=== PATIENT | female | born 1990 | race Caucasian/White ===

== ENCOUNTER 2017-02-21 22:39 | Inpatient (IN) | payer OTHER ==
[2017-02-22] MEDS: DIPHENHYDRAMINE 50 MG INJ IV ×3 (01:15→22:07)
[2017-02-22] MEDS: SOD CHLORIDE 0.9% 2,000 ML IV (01:15)
[2017-02-22] MEDS: morphine 4 MG/ML VIAL IV ×6 (01:16→22:07)
[2017-02-22 01:46] LABS: ABNORMAL IP MESSAGE 1; HEMATOCRIT 25.5 % (37.0-47.0); HEMOGLOBIN 8.6 g/dl (12.0-16.0); MEAN CORPUSCULAR HEMOGLOBIN 28.4 pg (29.0-33.0); MEAN CORPUSCULAR HGB CONC 33.7 g/dl (32.0-37.0); MEAN CORPUSCULAR VOLUME 84.2 fl (82.0-101.0); MEAN PLATELET VOLUME 10.7 fl (7.4-10.4); NUCLEATED RED BLOOD CELLS% 0.5 /100WBC (0.0-0.0); PLATELET COUNT 407 10^3/UL (140-415); RED BLOOD COUNT 3.03 10^6/ul (4.20-5.40); RED CELL DISTRIBUTION WIDTH 22.7 % (11.5-14.5); RETICULOCYTE COUNT # 0.311 X10^6 (0.020-0.110); RETICULOCYTE COUNT % 10.3 % (0.5-1.5); RETICULOCYTE RBC 3.03
[2017-02-22 01:46] LABS: WHITE BLOOD COUNT 16.9 10^3/ul (4.8-10.8)
[2017-02-22 01:50] LABS: ADD MAN DIFF? YES; POSITIVE DIFF @See below
[2017-02-22 02:04] LABS: URINE BLOOD (Dip) POC Negative (NEGATIVE); URINE GLUCOSE (Dip) POC Negative (NEGATIVE); URINE KETONES (Dip) POC Negative (NEGATIVE); URINE LEUKOCYTE EST (Dip) POC Negative (NEGATIVE); URINE NITRITE (Dip) POC Negative (NEGATIVE); URINE TOTAL PROTEIN POC Negative (NEGATIVE)
[2017-02-22 02:05] LABS: ANION GAP 20 (8-16); BLOOD UREA NITROGEN 16 mg/dl (7-20); CALCIUM 9.3 mg/dl (8.4-10.2); CARBON DIOXIDE 25 mmol/L (21-31); CHLORIDE 104 mmol/L (97-110); CREATININE 0.65 mg/dl (0.44-1.00); GLUCOSE 102 mg/dl (70-220); POTASSIUM 4.5 mmol/L (3.5-5.1); SODIUM 144 mmol/L (135-144)
[2017-02-22] MEDS: morphine 10 MG INJ IV ×2 (02:05→03:34)
[2017-02-22 02:31] LABS: ANISOCYTOSIS 1+ (0-0); EOSINOPHILS % (M) 2 % (0-7); GIANT THROMBO% (M) 2 % (0-0); HYPOCHROMASIA 1+ (0-0); LYMPHOCYTES #M 6.7 10^3/ul (0.8-2.9); LYMPHOCYTES % (M) 40 % (15-51); MONOCYTE #M 1.3 10^3/ul (0.3-0.9); MONOCYTES % (M) 8 % (0-11); PLATELET ESTIMATE NORMAL; PLATELET MORPHOLOGY COMMENT @See below; POIKILOCYTOSIS 1+ (0-0); POLYCHROMASIA 3+ (0-0); SEGMENTED NEUTROPHILS (M) % 50 % (39-77); SICKLE CELL 1+ (0-0); SMUDGE%M 8 % (0-0); TARGET CELLS 1+ (0-0)
[2017-02-22] MEDS: ONDANSETRON 4 MG INJ IV ×3 (03:56→05:44)
[2017-02-22] MEDS: ACETAMINOPHEN 325 MG TAB PO ×2 (03:56→04:03)
[2017-02-22] MEDS ORDERED: HYDROCODONE/APAP (5/325) TAB PO (05:30)
[2017-02-22] MEDS: SOD CHLORIDE 0.45% 1,000 ML IV ×3 (05:45→23:20)
[2017-02-22 06:45] LABS: ADD MAN DIFF? NO
[2017-02-22 06:47] LABS: ABNORMAL IP MESSAGE 1; BASOPHIL # 0.1 10^3/ul (0.0-0.1); BASOPHILS % 0.6 % (0.0-2.0); EOSINOPHILS # 0.4 10^3/ul (0.0-0.5); EOSINOPHILS % 2.7 % (0.0-7.0); HEMATOCRIT 22.2 % (37.0-47.0); HEMOGLOBIN 7.7 g/dl (12.0-16.0); LYMPHOCYTES # 4.2 10^3/ul (0.8-2.9); LYMPHOCYTES % 25.6 % (15.0-51.0); MEAN CORPUSCULAR HEMOGLOBIN 29.7 pg (29.0-33.0); MEAN CORPUSCULAR HGB CONC 34.7 g/dl (32.0-37.0); MEAN CORPUSCULAR VOLUME 85.7 fl (82.0-101.0); MEAN PLATELET VOLUME 10.1 fl (7.4-10.4); MONOCYTES % 6.4 % (0.0-11.0); NEUTROPHIL # 10.3 10^3/ul (1.6-7.5); NEUTROPHILS % 63.8 % (39.0-77.0); NUCLEATED RED BLOOD CELLS # 0.1 10^3/ul (0.0-0.0); NUCLEATED RED BLOOD CELLS% 0.6 /100WBC (0.0-0.0); PLATELET COUNT 306 10^3/UL (140-415); RED BLOOD COUNT 2.59 10^6/ul (4.20-5.40); RED CELL DISTRIBUTION WIDTH 22.7 % (11.5-14.5)
[2017-02-22 06:47] LABS: WHITE BLOOD COUNT 16.2 10^3/ul (4.8-10.8)
[2017-02-22 07:03] LABS: POSITIVE DIFF @See below
[2017-02-22 07:26] LABS: ALANINE AMINOTRANSFERASE 90 IU/L (13-69); ALBUMIN 3.7 g/dl (3.3-4.9); ALBUMIN/GLOBULIN RATIO 1.08; ALKALINE PHOSPHATASE 109 IU/L (42-121); ANION GAP 16 (8-16); ASPARTATE AMINO TRANSFERASE 80 IU/L (15-46); BILIRUBIN,INDIRECT 1.7 mg/dl (0-1.1); BILIRUBIN,TOTAL 1.7 mg/dl (0.2-1.3); BLOOD UREA NITROGEN 12 mg/dl (7-20); CALCIUM 8.1 mg/dl (8.4-10.2); CARBON DIOXIDE 23 mmol/L (21-31); CHLORIDE 110 mmol/L (97-110); CREATININE 0.65 mg/dl (0.44-1.00); GLUCOSE 90 mg/dl (70-220); POTASSIUM 4.5 mmol/L (3.5-5.1); SODIUM 144 mmol/L (135-144); TOTAL PROTEIN 7.1 g/dl (6.1-8.1)
[2017-02-22] MEDS ORDERED: morphine 2 MG INJ (09:38)
[2017-02-22] MEDS: DIPHENHYDRAMINE 50 MG INJ IM ×3 (09:43→17:56)
[2017-02-22] MEDS ORDERED: ONDANSETRON 4 MG TAB PO (20:00)
[2017-02-22] MEDS ORDERED: ALBUTEROL HFA 8 GM INHALER INH (20:00)
[2017-02-22] MEDS ORDERED: DIPHENHYDRAMINE 25 MG CAP PO (20:00)
[2017-02-22] MEDS: HYDROCODONE/APAP (10/325) TAB PO (21:00)
[2017-02-22] MEDS ORDERED: HARD FAT/PHENYLEPHRINE SUPP PR (21:00)
[2017-02-22] MEDS: APIXABAN 5 MG TABLET PO (22:09)
[2017-02-22] MEDS: HYDROXYUREA 500 MG CAP PO (22:19)
[2017-02-23] MEDS ORDERED: HYDROCODONE/APAP (5/325) TAB PO
[2017-02-23] MEDS: HYDROCODONE/APAP (10/325) TAB PO ×4 (00:59→12:39)
[2017-02-23] MEDS: DIPHENHYDRAMINE 50 MG INJ IV ×6 (02:12→22:13)
[2017-02-23] MEDS: morphine 4 MG/ML VIAL IV ×6 (02:13→22:13)
[2017-02-23 06:19] LABS: ADD MAN DIFF? NO
[2017-02-23 06:30] LABS: WHITE BLOOD COUNT 11.7 10^3/ul (4.8-10.8)
[2017-02-23 06:30] LABS: ABNORMAL IP MESSAGE 1; BASOPHIL # 0.1 10^3/ul (0.0-0.1); EOSINOPHILS # 0.9 10^3/ul (0.0-0.5); EOSINOPHILS % 7.8 % (0.0-7.0); HEMATOCRIT 22.1 % (37.0-47.0); HEMOGLOBIN 7.4 g/dl (12.0-16.0); LYMPHOCYTES # 4.4 10^3/ul (0.8-2.9); LYMPHOCYTES % 37.8 % (15.0-51.0); MEAN CORPUSCULAR HEMOGLOBIN 28.5 pg (29.0-33.0); MEAN CORPUSCULAR HGB CONC 33.5 g/dl (32.0-37.0); MEAN PLATELET VOLUME 10.5 fl (7.4-10.4); MONOCYTE # 1.2 10^3/ul (0.3-0.9); MONOCYTES % 10.3 % (0.0-11.0); NEUTROPHILS % 42.5 % (39.0-77.0); NUCLEATED RED BLOOD CELLS # 0.1 10^3/ul (0.0-0.0); NUCLEATED RED BLOOD CELLS% 0.7 /100WBC (0.0-0.0); PLATELET COUNT 332 10^3/UL (140-415); RED CELL DISTRIBUTION WIDTH 22.4 % (11.5-14.5)
[2017-02-23 07:20] LABS: POSITIVE DIFF @See below
[2017-02-23 07:21] LABS: ANION GAP 17 (8-16); BLOOD UREA NITROGEN 12 mg/dl (7-20); CARBON DIOXIDE 26 mmol/L (21-31); CHLORIDE 102 mmol/L (97-110); CREATININE 0.76 mg/dl (0.44-1.00); GLUCOSE 80 mg/dl (70-220); SODIUM 140 mmol/L (135-144)
[2017-02-23] MEDS: APIXABAN 5 MG TABLET PO ×2 (08:46→20:57)
[2017-02-23] MEDS: FOLIC ACID 1 MG TAB PO (08:46)
[2017-02-23] MEDS: POLYETHYLENE GLYCOL 17 GM PACKET PO (08:48)
[2017-02-23] MEDS: HYDROXYUREA 500 MG CAP PO ×2 (08:52→20:59)
[2017-02-23] MEDS: SOD CHLORIDE 0.45% 1,000 ML IV ×2 (12:48→21:30)
[2017-02-23 16:49] LABS: IMMEDIATE SPIN CROSSMATCH 1 1
[2017-02-23] MEDS: ACETAMINOPHEN 325 MG TAB PO (17:05)
[2017-02-23] MEDS ORDERED: HYDROCODONE/APAP (10/325) TAB PO (18:00)
[2017-02-23] MEDS: ONDANSETRON 4 MG INJ IV (18:07)
[2017-02-24] MEDS: morphine 4 MG/ML VIAL IV ×5 (02:11→22:06)
[2017-02-24] MEDS: DIPHENHYDRAMINE 50 MG INJ IV ×5 (02:11→22:06)
[2017-02-24] MEDS: POLYETHYLENE GLYCOL 17 GM PACKET PO (10:00)
[2017-02-24] MEDS: APIXABAN 5 MG TABLET PO ×2 (10:00→22:06)
[2017-02-24] MEDS: FOLIC ACID 1 MG TAB PO (10:01)
[2017-02-24] MEDS: HYDROXYUREA 500 MG CAP PO ×2 (10:41→22:07)
[2017-02-24] MEDS: SOD CHLORIDE 0.45% 1,000 ML IV ×2 (10:50→14:49)
[2017-02-24 11:37] LABS: ADD MAN DIFF? NO
[2017-02-24 11:40] LABS: WHITE BLOOD COUNT 10.1 10^3/ul (4.8-10.8)
[2017-02-24 11:40] LABS: BASOPHIL # 0.1 10^3/ul (0.0-0.1); BASOPHILS % 1.1 % (0.0-2.0); EOSINOPHILS # 0.9 10^3/ul (0.0-0.5); EOSINOPHILS % 8.4 % (0.0-7.0); HEMATOCRIT 25.9 % (37.0-47.0); HEMOGLOBIN 8.8 g/dl (12.0-16.0); LYMPHOCYTES # 3.1 10^3/ul (0.8-2.9); LYMPHOCYTES % 30.5 % (15.0-51.0); MEAN CORPUSCULAR HEMOGLOBIN 28.9 pg (29.0-33.0); MEAN CORPUSCULAR VOLUME 84.9 fl (82.0-101.0); MEAN PLATELET VOLUME 10.8 fl (7.4-10.4); MONOCYTE # 1.5 10^3/ul (0.3-0.9); MONOCYTES % 14.8 % (0.0-11.0); NEUTROPHIL # 4.5 10^3/ul (1.6-7.5); NEUTROPHILS % 44.3 % (39.0-77.0); NUCLEATED RED BLOOD CELLS # 0.1 10^3/ul (0.0-0.0); NUCLEATED RED BLOOD CELLS% 1.1 /100WBC (0.0-0.0); PLATELET COUNT 312 10^3/UL (140-415); RED BLOOD COUNT 3.05 10^6/ul (4.20-5.40); RED CELL DISTRIBUTION WIDTH 21.2 % (11.5-14.5)
[2017-02-24 12:10] LABS: ANION GAP 18 (8-16); BLOOD UREA NITROGEN 11 mg/dl (7-20); CARBON DIOXIDE 27 mmol/L (21-31); CHLORIDE 103 mmol/L (97-110); CREATININE 0.73 mg/dl (0.44-1.00); GLUCOSE 119 mg/dl (70-220); POTASSIUM 4.7 mmol/L (3.5-5.1); SODIUM 143 mmol/L (135-144)
[2017-02-24 19:17] LABS: ALANINE AMINOTRANSFERASE 79 IU/L (13-69); ALKALINE PHOSPHATASE 129 IU/L (42-121); ASPARTATE AMINO TRANSFERASE 77 IU/L (15-46); BILIRUBIN,INDIRECT 1.7 mg/dl (0-1.1); BILIRUBIN,TOTAL 1.7 mg/dl (0.2-1.3); LIPASE 72 U/L (23-300); TOTAL PROTEIN 7.7 g/dl (6.1-8.1)
[2017-02-25] MEDS: SOD CHLORIDE 0.45% 1,000 ML IV ×3 (00:10→19:02)
[2017-02-25] MEDS: DIPHENHYDRAMINE 50 MG INJ IV ×6 (02:08→23:04)
[2017-02-25] MEDS: morphine 4 MG/ML VIAL IV ×6 (02:09→23:04)
[2017-02-25] MEDS: LORAZEPAM 1 MG TAB PO (03:12)
[2017-02-25] MEDS: APIXABAN 5 MG TABLET PO ×2 (10:21→21:51)
[2017-02-25] MEDS: FOLIC ACID 1 MG TAB PO (10:22)
[2017-02-25] MEDS: POLYETHYLENE GLYCOL 17 GM PACKET PO (10:46)
[2017-02-25] MEDS: HYDROXYUREA 500 MG CAP PO ×2 (10:46→21:59)
[2017-02-25 11:15] LABS: HAAIG REFLEX REFLEX FILED
[2017-02-25 11:32] LABS: ADD MAN DIFF? NO
[2017-02-25 11:40] LABS: ABNORMAL IP MESSAGE 1; BASOPHIL # 0.2 10^3/ul (0.0-0.1); BASOPHILS % 1.5 % (0.0-2.0); EOSINOPHILS % 8.4 % (0.0-7.0); HEMATOCRIT 25.7 % (37.0-47.0); HEMOGLOBIN 8.7 g/dl (12.0-16.0); LYMPHOCYTES # 4.7 10^3/ul (0.8-2.9); LYMPHOCYTES % 40.9 % (15.0-51.0); MEAN CORPUSCULAR HEMOGLOBIN 28.9 pg (29.0-33.0); MEAN CORPUSCULAR HGB CONC 33.9 g/dl (32.0-37.0); MEAN CORPUSCULAR VOLUME 85.4 fl (82.0-101.0); MEAN PLATELET VOLUME 10.8 fl (7.4-10.4); MONOCYTE # 1.6 10^3/ul (0.3-0.9); MONOCYTES % 14.2 % (0.0-11.0); NEUTROPHILS % 34.3 % (39.0-77.0); NUCLEATED RED BLOOD CELLS # 0.1 10^3/ul (0.0-0.0); NUCLEATED RED BLOOD CELLS% 0.9 /100WBC (0.0-0.0); PLATELET COUNT 316 10^3/UL (140-415); RED BLOOD COUNT 3.01 10^6/ul (4.20-5.40); RED CELL DISTRIBUTION WIDTH 21.7 % (11.5-14.5)
[2017-02-25 11:40] LABS: WHITE BLOOD COUNT 11.5 10^3/ul (4.8-10.8)
[2017-02-25 11:57] LABS: POSITIVE DIFF @See below
[2017-02-25 12:01] LABS: IRON 183 ug/dl (35-150)
[2017-02-25 12:04] LABS: ALANINE AMINOTRANSFERASE 76 IU/L (13-69); ALBUMIN 4.2 g/dl (3.3-4.9); ALBUMIN/GLOBULIN RATIO 1.23; ALKALINE PHOSPHATASE 131 IU/L (42-121); ANION GAP 17 (8-16); ASPARTATE AMINO TRANSFERASE 65 IU/L (15-46); BILIRUBIN,INDIRECT 1.7 mg/dl (0-1.1); BILIRUBIN,TOTAL 1.7 mg/dl (0.2-1.3); BLOOD UREA NITROGEN 11 mg/dl (7-20); CALCIUM 8.9 mg/dl (8.4-10.2); CARBON DIOXIDE 25 mmol/L (21-31); CHLORIDE 101 mmol/L (97-110); CREATININE 0.69 mg/dl (0.44-1.00); GLUCOSE 87 mg/dl (70-220); POTASSIUM 4.6 mmol/L (3.5-5.1); SODIUM 138 mmol/L (135-144); TOTAL PROTEIN 7.6 g/dl (6.1-8.1)
[2017-02-25 12:10] LABS: % IRON SATURATION 81 % SAT (22-52); TOTAL IRON BINDING CAPACITY 225 ug/dl (241-421)
[2017-02-25 12:31] LABS: HEPATITIS B SURFACE ANTIGEN NEGATIVE (NEGATIVE)
[2017-02-25 12:49] LABS: HEPATITIS B CORE ANTIBODY NEGATIVE (NEGATIVE); HEPATITIS C VIRAL ANTIBODY NEGATIVE (NEGATIVE)
[2017-02-25] MEDS: ZOLPIDEM 5 MG TAB PO (23:04)
[2017-02-26] MEDS: SOD CHLORIDE 0.45% 1,000 ML IV ×2 (09:45→16:10)
[2017-02-26] MEDS: FOLIC ACID 1 MG TAB PO (09:46)
[2017-02-26] MEDS: POLYETHYLENE GLYCOL 17 GM PACKET PO (09:46)
[2017-02-26] MEDS: APIXABAN 5 MG TABLET PO ×2 (09:46→21:50)
[2017-02-26] MEDS: DIPHENHYDRAMINE 50 MG INJ IV ×4 (09:46→21:50)
[2017-02-26] MEDS: morphine 4 MG/ML VIAL IV ×4 (09:47→21:50)
[2017-02-26] MEDS: HYDROXYUREA 500 MG CAP PO ×2 (10:19→21:58)
[2017-02-26 10:54] LABS: ADD MAN DIFF? NO
[2017-02-26 11:29] LABS: ANION GAP 16 (8-16); BLOOD UREA NITROGEN 10 mg/dl (7-20); CALCIUM 8.9 mg/dl (8.4-10.2); CARBON DIOXIDE 27 mmol/L (21-31); CHLORIDE 104 mmol/L (97-110); CREATININE 0.65 mg/dl (0.44-1.00); GLUCOSE 93 mg/dl (70-220); POTASSIUM 4.9 mmol/L (3.5-5.1); SODIUM 142 mmol/L (135-144)
[2017-02-26 11:57] LABS: WHITE BLOOD COUNT 10.2 10^3/ul (4.8-10.8)
[2017-02-26 11:57] LABS: BASOPHIL # 0.1 10^3/ul (0.0-0.1); BASOPHILS % 1.3 % (0.0-2.0); EOSINOPHILS # 0.7 10^3/ul (0.0-0.5); EOSINOPHILS % 6.5 % (0.0-7.0); HEMATOCRIT 27.1 % (37.0-47.0); HEMOGLOBIN 9.1 g/dl (12.0-16.0); LYMPHOCYTES % 28.9 % (15.0-51.0); MEAN CORPUSCULAR HEMOGLOBIN 28.9 pg (29.0-33.0); MEAN CORPUSCULAR HGB CONC 33.6 g/dl (32.0-37.0); MEAN PLATELET VOLUME 9.9 fl (7.4-10.4); MONOCYTE # 1.2 10^3/ul (0.3-0.9); MONOCYTES % 11.3 % (0.0-11.0); NEUTROPHIL # 5.3 10^3/ul (1.6-7.5); NEUTROPHILS % 51.6 % (39.0-77.0); NUCLEATED RED BLOOD CELLS # 0.1 10^3/ul (0.0-0.0); NUCLEATED RED BLOOD CELLS% 0.9 /100WBC (0.0-0.0); PLATELET COUNT 333 10^3/UL (140-415); RED BLOOD COUNT 3.15 10^6/ul (4.20-5.40); RED CELL DISTRIBUTION WIDTH 21.8 % (11.5-14.5)
[2017-02-26] MEDS: ZOLPIDEM 5 MG TAB PO (23:28)
[2017-02-27] MEDS: DIPHENHYDRAMINE 50 MG INJ IV ×6 (01:54→22:10)
[2017-02-27] MEDS: morphine 4 MG/ML VIAL IV ×6 (01:54→22:10)
[2017-02-27] MEDS: SOD CHLORIDE 0.45% 1,000 ML IV ×4 (01:55→22:30)
[2017-02-27] MEDS: POLYETHYLENE GLYCOL 17 GM PACKET PO (09:48)
[2017-02-27] MEDS: APIXABAN 5 MG TABLET PO ×2 (09:48→22:09)
[2017-02-27] MEDS: FOLIC ACID 1 MG TAB PO (09:48)
[2017-02-27] MEDS: HYDROXYUREA 500 MG CAP PO ×2 (09:53→22:29)
[2017-02-27 10:54] LABS: ADD MAN DIFF? NO
[2017-02-27 11:00] LABS: BASOPHIL # 0.1 10^3/ul (0.0-0.1); BASOPHILS % 0.7 % (0.0-2.0); EOSINOPHILS # 0.7 10^3/ul (0.0-0.5); EOSINOPHILS % 3.7 % (0.0-7.0); HEMATOCRIT 24.8 % (37.0-47.0); HEMOGLOBIN 8.3 g/dl (12.0-16.0); LYMPHOCYTES # 3.7 10^3/ul (0.8-2.9); MEAN CORPUSCULAR HEMOGLOBIN 28.9 pg (29.0-33.0); MEAN CORPUSCULAR HGB CONC 33.5 g/dl (32.0-37.0); MEAN CORPUSCULAR VOLUME 86.4 fl (82.0-101.0); MEAN PLATELET VOLUME 10.7 fl (7.4-10.4); MONOCYTE # 1.1 10^3/ul (0.3-0.9); NEUTROPHIL # 11.9 10^3/ul (1.6-7.5); NEUTROPHILS % 67.6 % (39.0-77.0); NUCLEATED RED BLOOD CELLS # 0.1 10^3/ul (0.0-0.0); NUCLEATED RED BLOOD CELLS% 0.5 /100WBC (0.0-0.0); PLATELET COUNT 258 10^3/UL (140-415); RED BLOOD COUNT 2.87 10^6/ul (4.20-5.40); RED CELL DISTRIBUTION WIDTH 21.8 % (11.5-14.5)
[2017-02-27 11:00] LABS: WHITE BLOOD COUNT 17.6 10^3/ul (4.8-10.8)
[2017-02-27 11:20] LABS: ANION GAP 18 (8-16); BLOOD UREA NITROGEN 16 mg/dl (7-20); CALCIUM 8.5 mg/dl (8.4-10.2); CARBON DIOXIDE 27 mmol/L (21-31); CHLORIDE 101 mmol/L (97-110); CREATININE 0.67 mg/dl (0.44-1.00); GLUCOSE 106 mg/dl (70-220); POTASSIUM 4.6 mmol/L (3.5-5.1); SODIUM 141 mmol/L (135-144)
[2017-02-28] MEDS: ACETAMINOPHEN 325 MG TAB PO (01:21)
[2017-02-28] MEDS: DIPHENHYDRAMINE 50 MG INJ IV ×5 (02:17→23:21)
[2017-02-28] MEDS: morphine 4 MG/ML VIAL IV ×5 (02:18→23:21)
[2017-02-28] MEDS: ZOLPIDEM 5 MG TAB PO (02:25)
[2017-02-28] MEDS: APIXABAN 5 MG TABLET PO ×3 (09:00→23:27)
[2017-02-28] MEDS: HYDROXYUREA 500 MG CAP PO ×3 (09:00→23:30)
[2017-02-28] MEDS: FOLIC ACID 1 MG TAB PO ×2 (09:00→10:35)
[2017-02-28] MEDS: POLYETHYLENE GLYCOL 17 GM PACKET PO (09:00)
[2017-02-28 11:51] LABS: ADD MAN DIFF? NO
[2017-02-28 12:11] LABS: WHITE BLOOD COUNT 11.9 10^3/ul (4.8-10.8)
[2017-02-28 12:11] LABS: ANION GAP 17 (8-16); BASOPHIL # 0.1 10^3/ul (0.0-0.1); BASOPHILS % 1.1 % (0.0-2.0); BLOOD UREA NITROGEN 13 mg/dl (7-20); CALCIUM 8.7 mg/dl (8.4-10.2); CARBON DIOXIDE 27 mmol/L (21-31); CHLORIDE 101 mmol/L (97-110); EOSINOPHILS # 0.7 10^3/ul (0.0-0.5); EOSINOPHILS % 6.1 % (0.0-7.0); GLUCOSE 101 mg/dl (70-220); HEMATOCRIT 25.5 % (37.0-47.0); HEMOGLOBIN 8.8 g/dl (12.0-16.0); LYMPHOCYTES # 2.8 10^3/ul (0.8-2.9); LYMPHOCYTES % 23.7 % (15.0-51.0); MEAN CORPUSCULAR HEMOGLOBIN 29.5 pg (29.0-33.0); MEAN CORPUSCULAR HGB CONC 34.5 g/dl (32.0-37.0); MEAN CORPUSCULAR VOLUME 85.6 fl (82.0-101.0); MEAN PLATELET VOLUME 10.9 fl (7.4-10.4); MONOCYTE # 1.2 10^3/ul (0.3-0.9); MONOCYTES % 10.1 % (0.0-11.0); NEUTROPHIL # 6.9 10^3/ul (1.6-7.5); NEUTROPHILS % 58.3 % (39.0-77.0); NUCLEATED RED BLOOD CELLS # 0.1 10^3/ul (0.0-0.0); NUCLEATED RED BLOOD CELLS% 0.8 /100WBC (0.0-0.0); PLATELET COUNT 288 10^3/UL (140-415); POTASSIUM 4.6 mmol/L (3.5-5.1); RED BLOOD COUNT 2.98 10^6/ul (4.20-5.40); RED CELL DISTRIBUTION WIDTH 21.5 % (11.5-14.5); SODIUM 140 mmol/L (135-144)
[2017-02-28] MEDS: SOD CHLORIDE 0.45% 1,000 ML IV (14:55)
[2017-03-01] MEDS: ZOLPIDEM 5 MG TAB PO (02:40)
[2017-03-01] MEDS: SOD CHLORIDE 0.45% 1,000 ML IV ×2 (03:26→10:50)
[2017-03-01] MEDS: morphine 4 MG/ML VIAL IV ×5 (03:26→21:19)
[2017-03-01] MEDS: DIPHENHYDRAMINE 50 MG INJ IV ×4 (03:27→21:18)
[2017-03-01] MEDS: APIXABAN 5 MG TABLET PO ×2 (09:00→21:18)
[2017-03-01] MEDS: FOLIC ACID 1 MG TAB PO (09:14)
[2017-03-01] MEDS: POLYETHYLENE GLYCOL 17 GM PACKET PO (09:15)
[2017-03-01] MEDS: HYDROXYUREA 500 MG CAP PO ×2 (10:08→21:29)
[2017-03-01 10:49] LABS: ALANINE AMINOTRANSFERASE 80 IU/L (13-69); ALBUMIN/GLOBULIN RATIO 0.97; ALKALINE PHOSPHATASE 146 IU/L (42-121); ANION GAP 18 (8-16); ASPARTATE AMINO TRANSFERASE 88 IU/L (15-46); BILIRUBIN,INDIRECT 1.8 mg/dl (0-1.1); BILIRUBIN,TOTAL 1.8 mg/dl (0.2-1.3); BLOOD UREA NITROGEN 11 mg/dl (7-20); CARBON DIOXIDE 26 mmol/L (21-31); CHLORIDE 104 mmol/L (97-110); CREATININE 0.71 mg/dl (0.44-1.00); GLUCOSE 106 mg/dl (70-220); POTASSIUM 4.5 mmol/L (3.5-5.1); SODIUM 143 mmol/L (135-144); TOTAL PROTEIN 8.1 g/dl (6.1-8.1)
[2017-03-01] MEDS: ONDANSETRON 4 MG INJ IV (21:18)
[2017-03-02] MEDS: SOD CHLORIDE 0.45% 1,000 ML IV ×2 (00:10→13:36)
[2017-03-02] MEDS: morphine 4 MG/ML VIAL IV ×5 (01:26→21:16)
[2017-03-02] MEDS: DIPHENHYDRAMINE 50 MG INJ IV ×5 (01:27→21:15)
[2017-03-02] MEDS: ZOLPIDEM 5 MG TAB PO (02:41)
[2017-03-02] MEDS: FOLIC ACID 1 MG TAB PO (09:20)
[2017-03-02] MEDS: APIXABAN 5 MG TABLET PO ×2 (09:21→21:19)
[2017-03-02] MEDS: POLYETHYLENE GLYCOL 17 GM PACKET PO (09:21)
[2017-03-02] MEDS: HYDROXYUREA 500 MG CAP PO ×2 (09:28→21:26)
[2017-03-02 11:31] LABS: ADD MAN DIFF? NO
[2017-03-02 11:42] LABS: ABNORMAL IP MESSAGE 1; BASOPHIL # 0.1 10^3/ul (0.0-0.1); BASOPHILS % 0.7 % (0.0-2.0); EOSINOPHILS # 0.4 10^3/ul (0.0-0.5); EOSINOPHILS % 3.4 % (0.0-7.0); HEMOGLOBIN 7.9 g/dl (12.0-16.0); LYMPHOCYTES # 2.2 10^3/ul (0.8-2.9); LYMPHOCYTES % 19.8 % (15.0-51.0); MEAN CORPUSCULAR HEMOGLOBIN 28.5 pg (29.0-33.0); MEAN CORPUSCULAR HGB CONC 32.9 g/dl (32.0-37.0); MEAN CORPUSCULAR VOLUME 86.6 fl (82.0-101.0); MEAN PLATELET VOLUME 10.4 fl (7.4-10.4); MONOCYTE # 0.7 10^3/ul (0.3-0.9); MONOCYTES % 6.4 % (0.0-11.0); NEUTROPHIL # 7.5 10^3/ul (1.6-7.5); NEUTROPHILS % 68.5 % (39.0-77.0); NUCLEATED RED BLOOD CELLS # 0.1 10^3/ul (0.0-0.0); NUCLEATED RED BLOOD CELLS% 0.9 /100WBC (0.0-0.0); PLATELET COUNT 228 10^3/UL (140-415); RED BLOOD COUNT 2.77 10^6/ul (4.20-5.40); RED CELL DISTRIBUTION WIDTH 22.4 % (11.5-14.5)
[2017-03-02 11:44] LABS: POSITIVE DIFF @See below
[2017-03-02] MEDS: ACETAMINOPHEN 325 MG TAB PO (13:38)
[2017-03-03 01:05] LABS: IMMEDIATE SPIN CROSSMATCH 1 1
[2017-03-03] MEDS: DIPHENHYDRAMINE 50 MG INJ IV ×6 (01:18→22:08)
[2017-03-03] MEDS: morphine 4 MG/ML VIAL IV ×6 (01:18→22:08)
[2017-03-03] MEDS: ACETAMINOPHEN 325 MG TAB PO (01:47)
[2017-03-03] MEDS: ZOLPIDEM 5 MG TAB PO (02:26)
[2017-03-03] MEDS: SOD CHLORIDE 0.45% 1,000 ML IV ×2 (05:14→19:36)
[2017-03-03] MEDS: POLYETHYLENE GLYCOL 17 GM PACKET PO (08:54)
[2017-03-03] MEDS: FOLIC ACID 1 MG TAB PO (08:54)
[2017-03-03] MEDS: APIXABAN 5 MG TABLET PO ×2 (08:54→22:09)
[2017-03-03] MEDS: HYDROXYUREA 500 MG CAP PO ×2 (08:58→22:25)
[2017-03-03 13:09] LABS: ADD MAN DIFF? NO
[2017-03-03 13:12] LABS: WHITE BLOOD COUNT 6.4 10^3/ul (4.8-10.8)
[2017-03-03 13:12] LABS: BASOPHIL # 0.1 10^3/ul (0.0-0.1); BASOPHILS % 0.8 % (0.0-2.0); EOSINOPHILS # 0.2 10^3/ul (0.0-0.5); EOSINOPHILS % 3.3 % (0.0-7.0); HEMATOCRIT 26.6 % (37.0-47.0); HEMOGLOBIN 8.9 g/dl (12.0-16.0); LYMPHOCYTES # 2.2 10^3/ul (0.8-2.9); LYMPHOCYTES % 34.9 % (15.0-51.0); MEAN CORPUSCULAR HEMOGLOBIN 28.9 pg (29.0-33.0); MEAN CORPUSCULAR HGB CONC 33.5 g/dl (32.0-37.0); MEAN CORPUSCULAR VOLUME 86.4 fl (82.0-101.0); MONOCYTE # 0.3 10^3/ul (0.3-0.9); MONOCYTES % 4.2 % (0.0-11.0); NEUTROPHIL # 3.5 10^3/ul (1.6-7.5); NEUTROPHILS % 55.2 % (39.0-77.0); NUCLEATED RED BLOOD CELLS # 0.1 10^3/ul (0.0-0.0); NUCLEATED RED BLOOD CELLS% 1.6 /100WBC (0.0-0.0); PLATELET COUNT 205 10^3/UL (140-415); RED BLOOD COUNT 3.08 10^6/ul (4.20-5.40); RED CELL DISTRIBUTION WIDTH 21.2 % (11.5-14.5)
[2017-03-03 13:56] LABS: ANION GAP 17 (8-16); BLOOD UREA NITROGEN 10 mg/dl (7-20); CALCIUM 8.6 mg/dl (8.4-10.2); CARBON DIOXIDE 25 mmol/L (21-31); CHLORIDE 103 mmol/L (97-110); CREATININE 0.66 mg/dl (0.44-1.00); GLUCOSE 108 mg/dl (70-220); POTASSIUM 4.6 mmol/L (3.5-5.1); SODIUM 140 mmol/L (135-144)
[2017-03-04] MEDS: ZOLPIDEM 5 MG TAB PO (02:03)
[2017-03-04] MEDS: morphine 4 MG/ML VIAL IV ×5 (02:04→18:30)
[2017-03-04] MEDS: SOD CHLORIDE 0.45% 1,000 ML IV (05:30)
[2017-03-04] MEDS: DIPHENHYDRAMINE 50 MG INJ IV ×3 (06:34→14:50)
[2017-03-04] MEDS: FOLIC ACID 1 MG TAB PO (09:50)
[2017-03-04] MEDS: POLYETHYLENE GLYCOL 17 GM PACKET PO (09:50)
[2017-03-04] MEDS: APIXABAN 5 MG TABLET PO (09:50)
[2017-03-04] MEDS: HYDROXYUREA 500 MG CAP PO (09:54)
[2017-03-04 11:45] LABS: ADD MAN DIFF? NO
[2017-03-04 12:10] LABS: BASOPHIL # 0.1 10^3/ul (0.0-0.1); BASOPHILS % 1.1 % (0.0-2.0); EOSINOPHILS # 0.5 10^3/ul (0.0-0.5); EOSINOPHILS % 6.3 % (0.0-7.0); HEMATOCRIT 26.2 % (37.0-47.0); HEMOGLOBIN 8.8 g/dl (12.0-16.0); LYMPHOCYTES # 2.5 10^3/ul (0.8-2.9); MEAN CORPUSCULAR HGB CONC 33.6 g/dl (32.0-37.0); MEAN CORPUSCULAR VOLUME 86.5 fl (82.0-101.0); MONOCYTE # 0.9 10^3/ul (0.3-0.9); MONOCYTES % 10.5 % (0.0-11.0); NEUTROPHIL # 4.3 10^3/ul (1.6-7.5); NEUTROPHILS % 51.4 % (39.0-77.0); NUCLEATED RED BLOOD CELLS # 0.1 10^3/ul (0.0-0.0); NUCLEATED RED BLOOD CELLS% 1.4 /100WBC (0.0-0.0); PLATELET COUNT 207 10^3/UL (140-415); RED BLOOD COUNT 3.03 10^6/ul (4.20-5.40); RED CELL DISTRIBUTION WIDTH 21.3 % (11.5-14.5)
[2017-03-04 12:10] LABS: WHITE BLOOD COUNT 8.3 10^3/ul (4.8-10.8)
[2017-03-04 12:12] LABS: ANION GAP 16 (8-16); BLOOD UREA NITROGEN 9 mg/dl (7-20); CALCIUM 8.4 mg/dl (8.4-10.2); CARBON DIOXIDE 25 mmol/L (21-31); CHLORIDE 100 mmol/L (97-110); CREATININE 0.59 mg/dl (0.44-1.00); GLUCOSE 107 mg/dl (70-220); POTASSIUM 4.3 mmol/L (3.5-5.1); SODIUM 137 mmol/L (135-144)
[2017-03-04] MEDS: HEPARIN (100 UNITS/ML) 5 ML SYG CATHETER (18:36)
== END 2017-03-04 20:10 | disposition home or self-care (01) | DRG 812 ==
LOC: E/R 22:39 → MS3 02-22 03:56 → MS2 02-22 18:30
PROC: 30243N1 Transfusion of Nonautologous Red Blood Cells into Central Vein, Percutaneous Approach (ICD-10-PCS; principal; 2017-02-23)
DX: D57.00 Hb-SS disease with crisis, unspecified (principal); R65.10 Systemic inflammatory response syndrome (SIRS) of non-infectious origin without acute organ dysfunction; F41.9 Anxiety disorder, unspecified; R31.9 Hematuria, unspecified; E83.111 Hemochromatosis due to repeated red blood cell transfusions; E83.19 Other disorders of iron metabolism; Z79.01 Long term (current) use of anticoagulants; Z86.711 Personal history of pulmonary embolism
CPT/HCPCS: 36415; 36430; 71010; 80048; 80053; 80076; 81003; 83540; 83690; 85025; 85045; 86644; 86704; 86709; 86803; 86850; 86900; 86901; 86920; 87040; 87086; 87340; 87400; 93005; 93970; 96374; 96375; 96376; 99285-25

== ENCOUNTER 2017-03-12 08:12 | Inpatient (IN) | payer OTHER ==
[2017-03-12 14:54] LABS: ADD MAN DIFF? NO
[2017-03-12] MEDS: SOD CHLORIDE 0.9% 1,000 ML IV (14:55)
[2017-03-12] MEDS: ONDANSETRON 4 MG INJ IV (14:55)
[2017-03-12] MEDS: HYDROCODONE/APAP (10/325) TAB PO ×2 (14:55→22:56)
[2017-03-12 14:56] LABS: WHITE BLOOD COUNT 17.1 10^3/ul (4.8-10.8)
[2017-03-12 14:56] LABS: BASOPHIL # 0.1 10^3/ul (0.0-0.1); BASOPHILS % 0.8 % (0.0-2.0); EOSINOPHILS # 0.2 10^3/ul (0.0-0.5); EOSINOPHILS % 1.3 % (0.0-7.0); HEMATOCRIT 24.8 % (37.0-47.0); HEMOGLOBIN 8.2 g/dl (12.0-16.0); LYMPHOCYTES # 3.8 10^3/ul (0.8-2.9); LYMPHOCYTES % 22.2 % (15.0-51.0); MEAN CORPUSCULAR HGB CONC 33.1 g/dl (32.0-37.0); MEAN CORPUSCULAR VOLUME 87.6 fl (82.0-101.0); MEAN PLATELET VOLUME 11.2 fl (7.4-10.4); MONOCYTE # 1.1 10^3/ul (0.3-0.9); MONOCYTES % 6.6 % (0.0-11.0); NEUTROPHIL # 11.6 10^3/ul (1.6-7.5); NEUTROPHILS % 68.2 % (39.0-77.0); NUCLEATED RED BLOOD CELLS # 0.1 10^3/ul (0.0-0.0); NUCLEATED RED BLOOD CELLS% 0.6 /100WBC (0.0-0.0); PLATELET COUNT 208 10^3/UL (140-415); RED BLOOD COUNT 2.83 10^6/ul (4.20-5.40); RED CELL DISTRIBUTION WIDTH 20.9 % (11.5-14.5)
[2017-03-12 15:17] LABS: ANION GAP 14 (8-16); BLOOD UREA NITROGEN 10 mg/dl (7-20); CALCIUM 8.6 mg/dl (8.4-10.2); CARBON DIOXIDE 25 mmol/L (21-31); CHLORIDE 107 mmol/L (97-110); CREATININE 0.69 mg/dl (0.44-1.00); GLUCOSE 85 mg/dl (70-220); POTASSIUM 4.1 mmol/L (3.5-5.1); SODIUM 142 mmol/L (135-144)
[2017-03-12 15:50] LABS: URINE BLOOD (Dip) POC 1+ (NEGATIVE); URINE GLUCOSE (Dip) POC Negative (NEGATIVE); URINE KETONES (Dip) POC Negative (NEGATIVE); URINE LEUKOCYTE EST (Dip) POC Negative (NEGATIVE); URINE NITRITE (Dip) POC Negative (NEGATIVE); URINE TOTAL PROTEIN POC Negative (NEGATIVE)
[2017-03-12 15:50] LABS: URINE PH (Dip) POC 6.5 (5.0-8.5)
[2017-03-12] MEDS: morphine 4 MG/ML VIAL IV (16:27)
[2017-03-12] MEDS: DIPHENHYDRAMINE 50 MG INJ IV ×3 (19:14→23:06)
[2017-03-12] MEDS: morphine 10 MG INJ IV ×2 (19:14→23:05)
[2017-03-12] MEDS ORDERED: ALBUTEROL HFA 8 GM INHALER INH (21:00)
[2017-03-12] MEDS: APIXABAN 5 MG TABLET PO (22:57)
[2017-03-12] MEDS: 1/2 NS + KCL 20 MEQ 1,000 ML IV (22:57)
[2017-03-12] MEDS: HYDROXYUREA 500 MG CAP PO (22:57)
[2017-03-13] MEDS: HYDROCODONE/APAP (10/325) TAB PO ×6 (01:00→21:14)
[2017-03-13] MEDS: DIPHENHYDRAMINE 50 MG INJ IV ×5 (02:43→20:21)
[2017-03-13] MEDS: morphine 10 MG INJ IV ×5 (02:43→20:21)
[2017-03-13] MEDS ORDERED: ONDANSETRON 4 MG INJ ×2 (02:50→16:02)
[2017-03-13] MEDS: ONDANSETRON 4 MG INJ IV ×3 (02:55→22:12)
[2017-03-13 06:42] LABS: ADD MAN DIFF? NO
[2017-03-13 06:50] LABS: WHITE BLOOD COUNT 13.4 10^3/ul (4.8-10.8)
[2017-03-13 06:50] LABS: BASOPHIL # 0.1 10^3/ul (0.0-0.1); BASOPHILS % 0.8 % (0.0-2.0); EOSINOPHILS # 0.5 10^3/ul (0.0-0.5); EOSINOPHILS % 3.4 % (0.0-7.0); HEMATOCRIT 23.3 % (37.0-47.0); HEMOGLOBIN 7.6 g/dl (12.0-16.0); LYMPHOCYTES # 4.5 10^3/ul (0.8-2.9); LYMPHOCYTES % 33.9 % (15.0-51.0); MEAN CORPUSCULAR HEMOGLOBIN 28.9 pg (29.0-33.0); MEAN CORPUSCULAR HGB CONC 32.6 g/dl (32.0-37.0); MEAN CORPUSCULAR VOLUME 88.6 fl (82.0-101.0); MEAN PLATELET VOLUME 10.7 fl (7.4-10.4); MONOCYTE # 0.9 10^3/ul (0.3-0.9); MONOCYTES % 6.3 % (0.0-11.0); NEUTROPHIL # 7.3 10^3/ul (1.6-7.5); NEUTROPHILS % 54.6 % (39.0-77.0); NUCLEATED RED BLOOD CELLS # 0.1 10^3/ul (0.0-0.0); PLATELET COUNT 326 10^3/UL (140-415); RED BLOOD COUNT 2.63 10^6/ul (4.20-5.40); RED CELL DISTRIBUTION WIDTH 20.8 % (11.5-14.5); RETICULOCYTE COUNT # 0.168 X10^6 (0.020-0.110); RETICULOCYTE COUNT % 6.4 % (0.5-1.5); RETICULOCYTE RBC 2.63
[2017-03-13 07:29] LABS: ALANINE AMINOTRANSFERASE 72 IU/L (13-69); ALBUMIN 3.7 g/dl (3.3-4.9); ALKALINE PHOSPHATASE 94 IU/L (42-121); ANION GAP 13 (8-16); ASPARTATE AMINO TRANSFERASE 59 IU/L (15-46); BILIRUBIN,INDIRECT 2.3 mg/dl (0-1.1); BILIRUBIN,TOTAL 2.3 mg/dl (0.2-1.3); BLOOD UREA NITROGEN 7 mg/dl (7-20); CALCIUM 8.6 mg/dl (8.4-10.2); CARBON DIOXIDE 27 mmol/L (21-31); CHLORIDE 104 mmol/L (97-110); CREATININE 0.73 mg/dl (0.44-1.00); GLUCOSE 85 mg/dl (70-220); POTASSIUM 4.1 mmol/L (3.5-5.1); SODIUM 140 mmol/L (135-144); TOTAL PROTEIN 7.4 g/dl (6.1-8.1)
[2017-03-13] MEDS: FOLIC ACID 1 MG TAB PO (09:35)
[2017-03-13] MEDS: APIXABAN 5 MG TABLET PO ×2 (09:35→20:24)
[2017-03-13] MEDS: POLYETHYLENE GLYCOL 17 GM PACKET PO (09:35)
[2017-03-13] MEDS: HYDROXYUREA 500 MG CAP PO ×2 (09:59→20:24)
[2017-03-13] MEDS: 1/2 NS + KCL 20 MEQ 1,000 ML IV ×2 (10:20→13:54)
[2017-03-14] MEDS ORDERED: morphine 2 MG INJ (00:21)
[2017-03-14] MEDS: HYDROCODONE/APAP (10/325) TAB PO ×6 (01:00→21:00)
[2017-03-14] MEDS: DIPHENHYDRAMINE 50 MG INJ IV ×6 (04:41→22:15)
[2017-03-14] MEDS: morphine 4 MG/ML VIAL IV ×5 (04:42→22:15)
[2017-03-14] MEDS: 1/2 NS + KCL 20 MEQ 1,000 ML IV ×2 (05:35→23:13)
[2017-03-14] MEDS ORDERED: HYDROCODONE/APAP (5/325) TAB (08:08)
[2017-03-14] MEDS: FOLIC ACID 1 MG TAB PO (08:57)
[2017-03-14] MEDS: HYDROXYUREA 500 MG CAP PO ×2 (08:58→21:20)
[2017-03-14] MEDS: POLYETHYLENE GLYCOL 17 GM PACKET PO (08:59)
[2017-03-14] MEDS: APIXABAN 5 MG TABLET PO ×2 (09:38→21:24)
[2017-03-14] MEDS ORDERED: HYDROCODONE/APAP (10/325) TAB PO (23:30)
[2017-03-14] MEDS: ACETAMINOPHEN 325 MG TAB PO (23:30)
[2017-03-15] MEDS: DIPHENHYDRAMINE 50 MG INJ IV ×6 (02:46→23:20)
[2017-03-15] MEDS: morphine 4 MG/ML VIAL IV (03:00)
[2017-03-15 05:31] LABS: ADD MAN DIFF? NO
[2017-03-15 05:40] LABS: BASOPHIL # 0.1 10^3/ul (0.0-0.1); BASOPHILS % 0.9 % (0.0-2.0); EOSINOPHILS # 0.8 10^3/ul (0.0-0.5); EOSINOPHILS % 7.9 % (0.0-7.0); HEMOGLOBIN 7.3 g/dl (12.0-16.0); LYMPHOCYTES # 4.5 10^3/ul (0.8-2.9); LYMPHOCYTES % 45.2 % (15.0-51.0); MEAN CORPUSCULAR HEMOGLOBIN 29.7 pg (29.0-33.0); MEAN CORPUSCULAR HGB CONC 33.2 g/dl (32.0-37.0); MEAN CORPUSCULAR VOLUME 89.4 fl (82.0-101.0); MONOCYTE # 1.1 10^3/ul (0.3-0.9); MONOCYTES % 11.4 % (0.0-11.0); NEUTROPHIL # 3.4 10^3/ul (1.6-7.5); NEUTROPHILS % 33.8 % (39.0-77.0); NUCLEATED RED BLOOD CELLS # 0.3 10^3/ul (0.0-0.0); NUCLEATED RED BLOOD CELLS% 3.3 /100WBC (0.0-0.0); PLATELET COUNT 300 10^3/UL (140-415); RED BLOOD COUNT 2.46 10^6/ul (4.20-5.40); RED CELL DISTRIBUTION WIDTH 21.9 % (11.5-14.5)
[2017-03-15 06:07] LABS: ANION GAP 12 (8-16); BLOOD UREA NITROGEN 7 mg/dl (7-20); CALCIUM 8.5 mg/dl (8.4-10.2); CARBON DIOXIDE 29 mmol/L (21-31); CHLORIDE 102 mmol/L (97-110); CREATININE 0.69 mg/dl (0.44-1.00); GLUCOSE 106 mg/dl (70-220); POTASSIUM 4.1 mmol/L (3.5-5.1); SODIUM 139 mmol/L (135-144)
[2017-03-15] MEDS: morphine 10 MG INJ IV ×5 (07:28→23:22)
[2017-03-15] MEDS: FOLIC ACID 1 MG TAB PO (08:55)
[2017-03-15] MEDS: POLYETHYLENE GLYCOL 17 GM PACKET PO (08:55)
[2017-03-15] MEDS: APIXABAN 5 MG TABLET PO ×2 (08:55→23:20)
[2017-03-15] MEDS: HYDROXYUREA 500 MG CAP PO ×2 (08:57→23:20)
[2017-03-15] MEDS: 1/2 NS + KCL 20 MEQ 1,000 ML IV (15:40)
[2017-03-15 16:26] LABS: IMMEDIATE SPIN CROSSMATCH 1 2
[2017-03-16] MEDS: ZOLPIDEM 5 MG TAB PO (01:21)
[2017-03-16] MEDS: 1/2 NS + KCL 20 MEQ 1,000 ML IV ×2 (02:42→16:32)
[2017-03-16] MEDS: DIPHENHYDRAMINE 50 MG INJ IV ×4 (08:09→20:18)
[2017-03-16] MEDS: morphine 10 MG INJ IV ×4 (08:10→20:18)
[2017-03-16] MEDS: FOLIC ACID 1 MG TAB PO (08:10)
[2017-03-16] MEDS: APIXABAN 5 MG TABLET PO ×2 (08:10→20:15)
[2017-03-16] MEDS: POLYETHYLENE GLYCOL 17 GM PACKET PO (08:10)
[2017-03-16] MEDS: HYDROXYUREA 500 MG CAP PO ×2 (12:27→20:16)
[2017-03-16] MEDS: NAPHAZOLINE 0.012% 15 ML OPH BOTH EYES (16:13)
[2017-03-16] MEDS: BISACODYL (EC) 5 MG TAB PO (16:14)
[2017-03-17] MEDS: morphine 10 MG INJ IV ×6 (00:25→21:10)
[2017-03-17] MEDS: DIPHENHYDRAMINE 50 MG INJ IV ×6 (00:25→21:10)
[2017-03-17] MEDS: ZOLPIDEM 5 MG TAB PO (02:08)
[2017-03-17] MEDS: 1/2 NS + KCL 20 MEQ 1,000 ML IV ×2 (05:29→21:17)
[2017-03-17 06:09] LABS: ADD MAN DIFF? NO
[2017-03-17 06:21] LABS: BASOPHIL # 0.1 10^3/ul (0.0-0.1); BASOPHILS % 1.3 % (0.0-2.0); EOSINOPHILS # 0.7 10^3/ul (0.0-0.5); EOSINOPHILS % 6.3 % (0.0-7.0); HEMATOCRIT 30.8 % (37.0-47.0); HEMOGLOBIN 10.3 g/dl (12.0-16.0); LYMPHOCYTES # 4.9 10^3/ul (0.8-2.9); LYMPHOCYTES % 43.6 % (15.0-51.0); MEAN CORPUSCULAR HEMOGLOBIN 30.1 pg (29.0-33.0); MEAN CORPUSCULAR HGB CONC 33.4 g/dl (32.0-37.0); MEAN CORPUSCULAR VOLUME 90.1 fl (82.0-101.0); MEAN PLATELET VOLUME 10.9 fl (7.4-10.4); MONOCYTE # 1.3 10^3/ul (0.3-0.9); MONOCYTES % 11.3 % (0.0-11.0); NEUTROPHIL # 4.1 10^3/ul (1.6-7.5); NEUTROPHILS % 36.8 % (39.0-77.0); NUCLEATED RED BLOOD CELLS # 0.2 10^3/ul (0.0-0.0); PLATELET COUNT 331 10^3/UL (140-415); RED BLOOD COUNT 3.42 10^6/ul (4.20-5.40); RED CELL DISTRIBUTION WIDTH 20.7 % (11.5-14.5)
[2017-03-17 06:21] LABS: WHITE BLOOD COUNT 11.1 10^3/ul (4.8-10.8)
[2017-03-17] MEDS: APIXABAN 5 MG TABLET PO ×2 (08:39→21:08)
[2017-03-17] MEDS: FOLIC ACID 1 MG TAB PO (08:39)
[2017-03-17] MEDS: POLYETHYLENE GLYCOL 17 GM PACKET PO (08:48)
[2017-03-17] MEDS: HYDROXYUREA 500 MG CAP PO ×2 (08:48→21:10)
[2017-03-17] MEDS: ACETAMINOPHEN 500 MG TAB PO (11:29)
[2017-03-17] MEDS: NAPHAZOLINE 0.012% 15 ML OPH BOTH EYES (16:46)
[2017-03-18] MEDS: DIPHENHYDRAMINE 50 MG INJ IV ×5 (01:15→22:02)
[2017-03-18] MEDS: morphine 10 MG INJ IV ×5 (01:15→22:02)
[2017-03-18] MEDS: ZOLPIDEM 5 MG TAB PO (02:10)
[2017-03-18] MEDS: FOLIC ACID 1 MG TAB PO (11:58)
[2017-03-18] MEDS: HYDROXYUREA 500 MG CAP PO ×2 (11:58→22:02)
[2017-03-18] MEDS: APIXABAN 5 MG TABLET PO ×2 (11:58→22:02)
[2017-03-18] MEDS: POLYETHYLENE GLYCOL 17 GM PACKET PO (11:59)
[2017-03-18] MEDS: 1/2 NS + KCL 20 MEQ 1,000 ML IV ×2 (17:58→23:40)
[2017-03-18 18:32] LABS: ADD UMIC NO; UR ASCORBIC ACID NEGATIVE (NEGATIVE); UR BILIRUBIN (Dip) NEGATIVE (NEGATIVE); UR BLOOD (Dip) NEGATIVE (NEGATIVE); UR CLARITY CLEAR (CLEAR); UR COLOR YELLOW (YELLOW); UR GLUCOSE (Dip) NEGATIVE (NEGATIVE); UR KETONES (Dip) NEGATIVE (NEGATIVE); UR LEUKOCYTE ESTERASE (Dip) NEGATIVE Leu/ul (NEGATIVE); UR NITRITE (Dip) NEGATIVE (NEGATIVE); UR SPECIFIC GRAVITY (Dip) 1.008 (1.003-1.030); UR TOTAL PROTEIN (Dip) NEGATIVE (NEGATIVE); UR UROBILINOGEN (Dip) NEGATIVE (NEGATIVE)
[2017-03-19] MEDS: DIPHENHYDRAMINE 50 MG INJ IV ×6 (02:16→22:22)
[2017-03-19] MEDS: morphine 10 MG INJ IV ×5 (02:17→22:21)
[2017-03-19 05:25] LABS: ADD MAN DIFF? NO
[2017-03-19 05:31] LABS: BASOPHIL # 0.1 10^3/ul (0.0-0.1); BASOPHILS % 0.6 % (0.0-2.0); EOSINOPHILS # 0.5 10^3/ul (0.0-0.5); HEMATOCRIT 28.5 % (37.0-47.0); HEMOGLOBIN 9.6 g/dl (12.0-16.0); LYMPHOCYTES # 3.5 10^3/ul (0.8-2.9); LYMPHOCYTES % 20.2 % (15.0-51.0); MEAN CORPUSCULAR HEMOGLOBIN 29.7 pg (29.0-33.0); MEAN CORPUSCULAR HGB CONC 33.7 g/dl (32.0-37.0); MEAN CORPUSCULAR VOLUME 88.2 fl (82.0-101.0); MEAN PLATELET VOLUME 10.2 fl (7.4-10.4); MONOCYTE # 1.3 10^3/ul (0.3-0.9); MONOCYTES % 7.3 % (0.0-11.0); NEUTROPHIL # 11.7 10^3/ul (1.6-7.5); NEUTROPHILS % 67.9 % (39.0-77.0); NUCLEATED RED BLOOD CELLS # 0.1 10^3/ul (0.0-0.0); NUCLEATED RED BLOOD CELLS% 0.6 /100WBC (0.0-0.0); PLATELET COUNT 259 10^3/UL (140-415); RED BLOOD COUNT 3.23 10^6/ul (4.20-5.40); RED CELL DISTRIBUTION WIDTH 19.7 % (11.5-14.5)
[2017-03-19 05:31] LABS: WHITE BLOOD COUNT 17.2 10^3/ul (4.8-10.8)
[2017-03-19 06:04] LABS: ANION GAP 15 (8-16); BLOOD UREA NITROGEN 13 mg/dl (7-20); CALCIUM 8.8 mg/dl (8.4-10.2); CARBON DIOXIDE 26 mmol/L (21-31); CHLORIDE 103 mmol/L (97-110); CREATININE 0.71 mg/dl (0.44-1.00); GLUCOSE 96 mg/dl (70-220); POTASSIUM 4.8 mmol/L (3.5-5.1); SODIUM 139 mmol/L (135-144)
[2017-03-19] MEDS: POLYETHYLENE GLYCOL 17 GM PACKET PO (10:09)
[2017-03-19] MEDS: HYDROXYUREA 500 MG CAP PO ×2 (10:09→22:20)
[2017-03-19] MEDS: APIXABAN 5 MG TABLET PO ×2 (10:09→22:19)
[2017-03-19] MEDS: FOLIC ACID 1 MG TAB PO (10:10)
[2017-03-19] MEDS: 1/2 NS + KCL 20 MEQ 1,000 ML IV (11:56)
[2017-03-19] MEDS: NAPHAZOLINE 0.012% 15 ML OPH BOTH EYES (18:27)
[2017-03-20] MEDS: 1/2 NS + KCL 20 MEQ 1,000 ML IV ×2 (02:02→15:18)
[2017-03-20] MEDS: DIPHENHYDRAMINE 50 MG INJ IV ×5 (02:27→20:48)
[2017-03-20] MEDS: morphine 10 MG INJ IV ×4 (02:28→15:11)
[2017-03-20 05:39] LABS: ADD MAN DIFF? NO
[2017-03-20 05:41] LABS: WHITE BLOOD COUNT 11.6 10^3/ul (4.8-10.8)
[2017-03-20 05:41] LABS: BASOPHIL # 0.1 10^3/ul (0.0-0.1); EOSINOPHILS # 0.6 10^3/ul (0.0-0.5); HEMATOCRIT 28.4 % (37.0-47.0); HEMOGLOBIN 9.4 g/dl (12.0-16.0); LYMPHOCYTES # 3.1 10^3/ul (0.8-2.9); LYMPHOCYTES % 26.6 % (15.0-51.0); MEAN CORPUSCULAR HEMOGLOBIN 29.6 pg (29.0-33.0); MEAN CORPUSCULAR HGB CONC 33.1 g/dl (32.0-37.0); MEAN CORPUSCULAR VOLUME 89.3 fl (82.0-101.0); MEAN PLATELET VOLUME 10.3 fl (7.4-10.4); MONOCYTE # 1.4 10^3/ul (0.3-0.9); NEUTROPHIL # 6.3 10^3/ul (1.6-7.5); NEUTROPHILS % 54.5 % (39.0-77.0); NUCLEATED RED BLOOD CELLS # 0.1 10^3/ul (0.0-0.0); PLATELET COUNT 242 10^3/UL (140-415); RED BLOOD COUNT 3.18 10^6/ul (4.20-5.40); RED CELL DISTRIBUTION WIDTH 19.9 % (11.5-14.5)
[2017-03-20 06:06] LABS: ANION GAP 15 (8-16); BLOOD UREA NITROGEN 13 mg/dl (7-20); CARBON DIOXIDE 26 mmol/L (21-31); CHLORIDE 104 mmol/L (97-110); CREATININE 0.68 mg/dl (0.44-1.00); GLUCOSE 106 mg/dl (70-220); SODIUM 140 mmol/L (135-144)
[2017-03-20] MEDS: POLYETHYLENE GLYCOL 17 GM PACKET PO (09:00)
[2017-03-20] MEDS: APIXABAN 5 MG TABLET PO (11:06)
[2017-03-20] MEDS: FOLIC ACID 1 MG TAB PO (11:06)
[2017-03-20] MEDS: HYDROXYUREA 500 MG CAP PO (11:08)
[2017-03-20] MEDS: HYDROCORTISONE 1% 28 GM CR TOP (11:23)
[2017-03-20] MEDS: morphine LIQ (10 MG/5 ML) CUP PO (20:48)
[2017-03-21] MEDS: APIXABAN 5 MG TABLET PO ×3 (00:10→20:35)
[2017-03-21] MEDS: HYDROXYUREA 500 MG CAP PO ×3 (00:11→20:35)
[2017-03-21] MEDS: DIPHENHYDRAMINE 50 MG INJ IV ×3 (02:32→17:01)
[2017-03-21] MEDS: morphine LIQ (10 MG/5 ML) CUP PO ×4 (02:32→20:35)
[2017-03-21] MEDS: 1/2 NS + KCL 20 MEQ 1,000 ML IV ×2 (05:00→19:40)
[2017-03-21 06:38] LABS: ADD MAN DIFF? NO
[2017-03-21 06:46] LABS: ABNORMAL IP MESSAGE 1; BASOPHIL # 0.1 10^3/ul (0.0-0.1); BASOPHILS % 1.2 % (0.0-2.0); EOSINOPHILS # 0.6 10^3/ul (0.0-0.5); EOSINOPHILS % 5.6 % (0.0-7.0); HEMATOCRIT 28.3 % (37.0-47.0); HEMOGLOBIN 9.5 g/dl (12.0-16.0); LYMPHOCYTES # 3.5 10^3/ul (0.8-2.9); LYMPHOCYTES % 31.6 % (15.0-51.0); MEAN CORPUSCULAR HGB CONC 33.6 g/dl (32.0-37.0); MEAN CORPUSCULAR VOLUME 89.3 fl (82.0-101.0); MEAN PLATELET VOLUME 10.7 fl (7.4-10.4); MONOCYTE # 1.5 10^3/ul (0.3-0.9); MONOCYTES % 13.9 % (0.0-11.0); NEUTROPHIL # 5.2 10^3/ul (1.6-7.5); NEUTROPHILS % 47.1 % (39.0-77.0); NUCLEATED RED BLOOD CELLS # 0.1 10^3/ul (0.0-0.0); NUCLEATED RED BLOOD CELLS% 0.6 /100WBC (0.0-0.0); PLATELET COUNT 268 10^3/UL (140-415); RED BLOOD COUNT 3.17 10^6/ul (4.20-5.40); RED CELL DISTRIBUTION WIDTH 20.1 % (11.5-14.5)
[2017-03-21 06:57] LABS: POSITIVE DIFF @See below
[2017-03-21 07:11] LABS: ANION GAP 15 (8-16); BLOOD UREA NITROGEN 12 mg/dl (7-20); CALCIUM 8.8 mg/dl (8.4-10.2); CARBON DIOXIDE 27 mmol/L (21-31); CHLORIDE 103 mmol/L (97-110); CREATININE 0.69 mg/dl (0.44-1.00); GLUCOSE 105 mg/dl (70-220); POTASSIUM 4.6 mmol/L (3.5-5.1); SODIUM 140 mmol/L (135-144)
[2017-03-21] MEDS: LORATADINE 10 MG TAB NGT (16:35)
[2017-03-21] MEDS: PANTOPRAZOLE (EC) 40 MG TAB PO (16:35)
[2017-03-21] MEDS: POLYETHYLENE GLYCOL 17 GM PACKET PO (16:35)
[2017-03-21] MEDS: FOLIC ACID 1 MG TAB PO (16:35)
[2017-03-21] MEDS: HYDROCODONE/APAP (10/325) TAB PO (20:34)
[2017-03-21] MEDS: HEPARIN (100 UNITS/ML) 5 ML SYG CATHETER (21:05)
== END 2017-03-21 21:19 | disposition home or self-care (01) | DRG 812 ==
LOC: MS3 16:34 → PP2 03-15 21:24 → E/R 08:12 → MS3 03-13 22:52
PROC: 30233N1 Transfusion of Nonautologous Red Blood Cells into Peripheral Vein, Percutaneous Approach (ICD-10-PCS; principal; 2017-03-15)
DX: D57.00 Hb-SS disease with crisis, unspecified (principal); R65.10 Systemic inflammatory response syndrome (SIRS) of non-infectious origin without acute organ dysfunction; D64.9 Anemia, unspecified; Z86.711 Personal history of pulmonary embolism; Z79.01 Long term (current) use of anticoagulants
CPT/HCPCS: 36415; 36430; 71045; 80048; 80053; 81003; 85025; 85045; 86644; 86850; 86900; 86901; 86920; 87086; 96374; 96375; 96376; 99285-25

== ENCOUNTER 2017-03-30 07:40 | Inpatient (IN) | payer OTHER ==
[2017-03-30] MEDS ORDERED: HYDROmorphONE 1 MG/ML SYG IV (07:56)
[2017-03-30] MEDS: morphine 4 MG/ML VIAL IV ×2 (08:48→10:05)
[2017-03-30] MEDS: ONDANSETRON 4 MG INJ IV ×2 (08:48→10:04)
[2017-03-30] MEDS: SOD CHLORIDE 0.9% 1,000 ML IV ×2 (08:48→14:07)
[2017-03-30] MEDS: DIPHENHYDRAMINE 50 MG INJ IV ×4 (08:48→22:16)
[2017-03-30 09:07] LABS: ADD MAN DIFF? NO
[2017-03-30 09:13] LABS: BASOPHIL # 0.2 10^3/ul (0.0-0.1); BASOPHILS % 0.8 % (0.0-2.0); EOSINOPHILS # 0.5 10^3/ul (0.0-0.5); EOSINOPHILS % 2.7 % (0.0-7.0); HEMATOCRIT 26.3 % (37.0-47.0); HEMOGLOBIN 8.8 g/dl (12.0-16.0); LYMPHOCYTES # 2.6 10^3/ul (0.8-2.9); LYMPHOCYTES % 14.6 % (15.0-51.0); MEAN CORPUSCULAR HEMOGLOBIN 29.6 pg (29.0-33.0); MEAN CORPUSCULAR HGB CONC 33.5 g/dl (32.0-37.0); MEAN CORPUSCULAR VOLUME 88.6 fl (82.0-101.0); MEAN PLATELET VOLUME 10.6 fl (7.4-10.4); MONOCYTE # 1.3 10^3/ul (0.3-0.9); MONOCYTES % 7.3 % (0.0-11.0); NEUTROPHIL # 13.3 10^3/ul (1.6-7.5); NEUTROPHILS % 73.8 % (39.0-77.0); NUCLEATED RED BLOOD CELLS # 0.1 10^3/ul (0.0-0.0); NUCLEATED RED BLOOD CELLS% 0.4 /100WBC (0.0-0.0); PLATELET COUNT 369 10^3/UL (140-415); RED BLOOD COUNT 2.97 10^6/ul (4.20-5.40); RED CELL DISTRIBUTION WIDTH 19.7 % (11.5-14.5); RETICULOCYTE COUNT # 0.174 X10^6 (0.020-0.110); RETICULOCYTE COUNT % 5.9 % (0.5-1.5); RETICULOCYTE RBC 2.97
[2017-03-30 09:30] LABS: ALANINE AMINOTRANSFERASE 97 IU/L (13-69); ALBUMIN 4.4 g/dl (3.3-4.9); ALKALINE PHOSPHATASE 126 IU/L (42-121); ANION GAP 14 (8-16); ASPARTATE AMINO TRANSFERASE 94 IU/L (15-46); BILIRUBIN,INDIRECT 1.8 mg/dl (0-1.1); BILIRUBIN,TOTAL 1.8 mg/dl (0.2-1.3); BLOOD UREA NITROGEN 11 mg/dl (7-20); CALCIUM 8.9 mg/dl (8.4-10.2); CARBON DIOXIDE 27 mmol/L (21-31); CHLORIDE 106 mmol/L (97-110); GLUCOSE 98 mg/dl (70-220); POTASSIUM 4.2 mmol/L (3.5-5.1); SODIUM 143 mmol/L (135-144); TOTAL PROTEIN 8.4 g/dl (6.1-8.1)
[2017-03-30] MEDS ORDERED: ONDANSETRON 4 MG INJ IV ×2 (10:30→13:00)
[2017-03-30] MEDS ORDERED: ACETAMINOPHEN 325 MG TAB PO ×2 (10:30→13:00)
[2017-03-30] MEDS: AZITHROMYCIN 500MG/NS (PMX) 250 ML IVPB (12:11)
[2017-03-30] MEDS ORDERED: NACL 0.9% 3 ML SYG IV (13:00)
[2017-03-30] MEDS ORDERED: morphine 2 MG INJ IV ×2 (13:00→17:00)
[2017-03-30] MEDS: morphine 10 MG INJ IV ×3 (14:07→22:14)
[2017-03-30] MEDS: FAMOTIDINE 20 MG INJ IV (22:13)
[2017-03-31] MEDS: morphine 10 MG INJ IV ×6 (02:11→22:34)
[2017-03-31] MEDS: DIPHENHYDRAMINE 50 MG INJ IV ×6 (02:13→22:33)
[2017-03-31 06:27] LABS: ADD MAN DIFF? NO
[2017-03-31 06:33] LABS: WHITE BLOOD COUNT 18.6 10^3/ul (4.8-10.8)
[2017-03-31 06:33] LABS: BASOPHIL # 0.2 10^3/ul (0.0-0.1); BASOPHILS % 0.9 % (0.0-2.0); EOSINOPHILS # 0.8 10^3/ul (0.0-0.5); EOSINOPHILS % 4.1 % (0.0-7.0); HEMATOCRIT 25.8 % (37.0-47.0); HEMOGLOBIN 8.5 g/dl (12.0-16.0); LYMPHOCYTES # 3.3 10^3/ul (0.8-2.9); MEAN CORPUSCULAR HEMOGLOBIN 29.7 pg (29.0-33.0); MEAN CORPUSCULAR HGB CONC 32.9 g/dl (32.0-37.0); MEAN CORPUSCULAR VOLUME 90.2 fl (82.0-101.0); MONOCYTE # 1.4 10^3/ul (0.3-0.9); MONOCYTES % 7.7 % (0.0-11.0); NEUTROPHIL # 12.7 10^3/ul (1.6-7.5); NEUTROPHILS % 68.2 % (39.0-77.0); NUCLEATED RED BLOOD CELLS # 0.1 10^3/ul (0.0-0.0); NUCLEATED RED BLOOD CELLS% 0.4 /100WBC (0.0-0.0); PLATELET COUNT 351 10^3/UL (140-415); RED BLOOD COUNT 2.86 10^6/ul (4.20-5.40); RED CELL DISTRIBUTION WIDTH 19.9 % (11.5-14.5)
[2017-03-31 07:06] LABS: ALANINE AMINOTRANSFERASE 93 IU/L (13-69); ALBUMIN 4.3 g/dl (3.3-4.9); ALKALINE PHOSPHATASE 123 IU/L (42-121); ANION GAP 15 (8-16); ASPARTATE AMINO TRANSFERASE 89 IU/L (15-46); BILIRUBIN,INDIRECT 1.8 mg/dl (0-1.1); BILIRUBIN,TOTAL 1.8 mg/dl (0.2-1.3); BLOOD UREA NITROGEN 11 mg/dl (7-20); CALCIUM 8.6 mg/dl (8.4-10.2); CARBON DIOXIDE 25 mmol/L (21-31); CHLORIDE 105 mmol/L (97-110); CREATININE 0.84 mg/dl (0.44-1.00); GLUCOSE 108 mg/dl (70-220); POTASSIUM 4.2 mmol/L (3.5-5.1); SODIUM 141 mmol/L (135-144); TOTAL PROTEIN 8.2 g/dl (6.1-8.1)
[2017-03-31] MEDS: SOD CHLORIDE 0.9% 1,000 ML IV ×2 (08:52→10:00)
[2017-03-31] MEDS: ENOXAPARIN 30 MG/0.3 ML SYG SC (09:00)
[2017-03-31] MEDS: FAMOTIDINE 20 MG INJ IV ×2 (09:20→22:06)
[2017-03-31] MEDS: AZITHROMYCIN 250 MG in SOD CHLORIDE 0.9% 250 ML IVPB (10:02)
[2017-03-31] MEDS: APIXABAN 5 MG TABLET PO (22:05)
[2017-03-31] MEDS: POLYETHYLENE GLYCOL 17 GM PACKET GTB (22:06)
[2017-04-01] MEDS: DIPHENHYDRAMINE 50 MG INJ IV ×6 (02:26→23:33)
[2017-04-01] MEDS: morphine 10 MG INJ IV ×6 (02:26→23:33)
[2017-04-01] MEDS: POLYETHYLENE GLYCOL 17 GM PACKET GTB ×2 (09:00→20:58)
[2017-04-01] MEDS: FAMOTIDINE 20 MG INJ IV ×2 (09:00→20:58)
[2017-04-01] MEDS: APIXABAN 5 MG TABLET PO ×2 (09:00→20:58)
[2017-04-01] MEDS: BISACODYL (EC) 5 MG TAB PO ×2 (09:03→22:05)
[2017-04-01] MEDS ORDERED: MEROPENEM 2 GM in SOD CHLORIDE 0.9% 100 ML IVPB (11:00)
[2017-04-01] MEDS: SOD CHLORIDE 0.9% 1,000 ML IV (11:25)
[2017-04-01] MEDS: MEROPENEM 500MG/50 ML (PMX) 50 ML IVPB ×2 (13:05→22:05)
[2017-04-01] MEDS: PHENOL 1.4% SOLN 180 ML BTL MT (14:50)
[2017-04-01 20:41] LABS: ADD UMIC YES; UR ASCORBIC ACID NEGATIVE (NEGATIVE); UR BACTERIA FEW /HPF (NONE SEEN); UR BILIRUBIN (Dip) NEGATIVE (NEGATIVE); UR BLOOD (Dip) 2+ mg/dL (NEGATIVE); UR CLARITY CLEAR (CLEAR); UR COLOR YELLOW (YELLOW); UR GLUCOSE (Dip) NEGATIVE (NEGATIVE); UR KETONES (Dip) NEGATIVE (NEGATIVE); UR LEUKOCYTE ESTERASE (Dip) 3+ Leu/ul (NEGATIVE); UR NITRITE (Dip) NEGATIVE (NEGATIVE); UR RBC 4 /HPF (0-5); UR SPECIFIC GRAVITY (Dip) 1.006 (1.003-1.030); UR SQUAMOUS EPITHELIAL CELL FEW /HPF (FEW); UR TOTAL PROTEIN (Dip) NEGATIVE (NEGATIVE); UR UROBILINOGEN (Dip) NEGATIVE (NEGATIVE); UR WBC 12 /HPF (0-5)
[2017-04-02] MEDS: morphine 10 MG INJ IV ×5 (03:36→20:15)
[2017-04-02] MEDS: DIPHENHYDRAMINE 50 MG INJ IV ×5 (03:36→20:15)
[2017-04-02] MEDS: MEROPENEM 500MG/50 ML (PMX) 50 ML IVPB ×3 (05:41→22:48)
[2017-04-02 06:11] LABS: ADD MAN DIFF? NO
[2017-04-02 06:23] LABS: ABNORMAL IP MESSAGE 1; BASOPHIL # 0.2 10^3/ul (0.0-0.1); BASOPHILS % 1.2 % (0.0-2.0); EOSINOPHILS # 0.9 10^3/ul (0.0-0.5); HEMATOCRIT 25.3 % (37.0-47.0); HEMOGLOBIN 8.4 g/dl (12.0-16.0); LYMPHOCYTES % 38.9 % (15.0-51.0); MEAN CORPUSCULAR HEMOGLOBIN 29.6 pg (29.0-33.0); MEAN CORPUSCULAR HGB CONC 33.2 g/dl (32.0-37.0); MEAN CORPUSCULAR VOLUME 89.1 fl (82.0-101.0); MEAN PLATELET VOLUME 10.7 fl (7.4-10.4); MONOCYTE # 1.3 10^3/ul (0.3-0.9); MONOCYTES % 10.1 % (0.0-11.0); NEUTROPHIL # 5.4 10^3/ul (1.6-7.5); NEUTROPHILS % 41.6 % (39.0-77.0); NUCLEATED RED BLOOD CELLS # 0.2 10^3/ul (0.0-0.0); NUCLEATED RED BLOOD CELLS% 1.2 /100WBC (0.0-0.0); PLATELET COUNT 367 10^3/UL (140-415); RED BLOOD COUNT 2.84 10^6/ul (4.20-5.40); RED CELL DISTRIBUTION WIDTH 19.8 % (11.5-14.5)
[2017-04-02 06:23] LABS: WHITE BLOOD COUNT 12.9 10^3/ul (4.8-10.8)
[2017-04-02 06:28] LABS: POSITIVE DIFF @See below
[2017-04-02 06:48] LABS: LACTIC ACID 1.4 mmol/L (0.5-2.0)
[2017-04-02 07:21] LABS: ANION GAP 15 (8-16); BLOOD UREA NITROGEN 7 mg/dl (7-20); CALCIUM 8.9 mg/dl (8.4-10.2); CARBON DIOXIDE 27 mmol/L (21-31); CHLORIDE 103 mmol/L (97-110); CREATININE 0.68 mg/dl (0.44-1.00); GLUCOSE 91 mg/dl (70-220); POTASSIUM 4.5 mmol/L (3.5-5.1); SODIUM 140 mmol/L (135-144)
[2017-04-02] MEDS: POLYETHYLENE GLYCOL 17 GM PACKET GTB ×2 (09:58→20:23)
[2017-04-02] MEDS: APIXABAN 5 MG TABLET PO ×2 (09:58→20:16)
[2017-04-02] MEDS: FAMOTIDINE 20 MG INJ IV ×2 (09:58→20:16)
[2017-04-02] MEDS: SOD CHLORIDE 0.9% 1,000 ML IV ×2 (10:45→20:24)
[2017-04-02] MEDS: BISACODYL (EC) 5 MG TAB PO (15:28)
[2017-04-03] MEDS: DIPHENHYDRAMINE 50 MG INJ IV ×6 (00:07→21:33)
[2017-04-03] MEDS: morphine 10 MG INJ IV ×6 (00:07→21:34)
[2017-04-03] MEDS: MEROPENEM 500MG/50 ML (PMX) 50 ML IVPB ×3 (06:17→21:28)
[2017-04-03] MEDS: POLYETHYLENE GLYCOL 17 GM PACKET GTB ×2 (09:02→21:00)
[2017-04-03] MEDS: FAMOTIDINE 20 MG INJ IV ×2 (09:02→21:29)
[2017-04-03] MEDS: APIXABAN 5 MG TABLET PO ×2 (09:02→21:29)
[2017-04-03 10:30] LABS: ADD MAN DIFF? NO
[2017-04-03 10:32] LABS: BASOPHIL # 0.1 10^3/ul (0.0-0.1); BASOPHILS % 0.6 % (0.0-2.0); EOSINOPHILS # 0.7 10^3/ul (0.0-0.5); EOSINOPHILS % 4.3 % (0.0-7.0); HEMATOCRIT 24.3 % (37.0-47.0); HEMOGLOBIN 8.2 g/dl (12.0-16.0); LYMPHOCYTES # 3.1 10^3/ul (0.8-2.9); LYMPHOCYTES % 20.3 % (15.0-51.0); MEAN CORPUSCULAR HEMOGLOBIN 29.9 pg (29.0-33.0); MEAN CORPUSCULAR HGB CONC 33.7 g/dl (32.0-37.0); MEAN CORPUSCULAR VOLUME 88.7 fl (82.0-101.0); MEAN PLATELET VOLUME 10.1 fl (7.4-10.4); MONOCYTES % 6.7 % (0.0-11.0); NEUTROPHIL # 10.2 10^3/ul (1.6-7.5); NEUTROPHILS % 67.3 % (39.0-77.0); NUCLEATED RED BLOOD CELLS # 0.1 10^3/ul (0.0-0.0); NUCLEATED RED BLOOD CELLS% 0.7 /100WBC (0.0-0.0); PLATELET COUNT 382 10^3/UL (140-415); RED BLOOD COUNT 2.74 10^6/ul (4.20-5.40); RED CELL DISTRIBUTION WIDTH 19.8 % (11.5-14.5)
[2017-04-03 10:32] LABS: WHITE BLOOD COUNT 15.2 10^3/ul (4.8-10.8)
[2017-04-03 10:57] LABS: ANION GAP 14 (8-16); BLOOD UREA NITROGEN 7 mg/dl (7-20); CALCIUM 8.9 mg/dl (8.4-10.2); CARBON DIOXIDE 27 mmol/L (21-31); CHLORIDE 104 mmol/L (97-110); GLUCOSE 92 mg/dl (70-220); POTASSIUM 4.6 mmol/L (3.5-5.1); SODIUM 140 mmol/L (135-144)
[2017-04-03] MEDS: SOD CHLORIDE 0.9% 1,000 ML IV (16:47)
[2017-04-03] MEDS: DOCUSATE SODIUM 100 MG CAP PO (16:47)
[2017-04-03] MEDS: BISACODYL (EC) 5 MG TAB PO (21:47)
[2017-04-04] MEDS: DIPHENHYDRAMINE 50 MG INJ IV ×6 (01:37→22:22)
[2017-04-04] MEDS: morphine 10 MG INJ IV ×6 (01:38→22:22)
[2017-04-04] MEDS: ZOLPIDEM 5 MG TAB PO (02:09)
[2017-04-04] MEDS: MEROPENEM 500MG/50 ML (PMX) 50 ML IVPB (05:56)
[2017-04-04 06:25] LABS: ADD MAN DIFF? NO
[2017-04-04 06:34] LABS: BASOPHIL # 0.1 10^3/ul (0.0-0.1); EOSINOPHILS # 0.5 10^3/ul (0.0-0.5); EOSINOPHILS % 4.5 % (0.0-7.0); HEMATOCRIT 21.7 % (37.0-47.0); HEMOGLOBIN 7.3 g/dl (12.0-16.0); LYMPHOCYTES # 3.4 10^3/ul (0.8-2.9); LYMPHOCYTES % 28.4 % (15.0-51.0); MEAN CORPUSCULAR HEMOGLOBIN 29.6 pg (29.0-33.0); MEAN CORPUSCULAR HGB CONC 33.6 g/dl (32.0-37.0); MEAN CORPUSCULAR VOLUME 87.9 fl (82.0-101.0); MEAN PLATELET VOLUME 10.7 fl (7.4-10.4); MONOCYTE # 0.9 10^3/ul (0.3-0.9); MONOCYTES % 7.8 % (0.0-11.0); NEUTROPHIL # 6.8 10^3/ul (1.6-7.5); NUCLEATED RED BLOOD CELLS # 0.1 10^3/ul (0.0-0.0); NUCLEATED RED BLOOD CELLS% 1.1 /100WBC (0.0-0.0); PLATELET COUNT 297 10^3/UL (140-415); RED BLOOD COUNT 2.47 10^6/ul (4.20-5.40); RED CELL DISTRIBUTION WIDTH 19.7 % (11.5-14.5)
[2017-04-04 06:34] LABS: WHITE BLOOD COUNT 11.9 10^3/ul (4.8-10.8)
[2017-04-04 06:58] LABS: ANION GAP 12 (8-16); BLOOD UREA NITROGEN 7 mg/dl (7-20); CALCIUM 8.6 mg/dl (8.4-10.2); CARBON DIOXIDE 27 mmol/L (21-31); CHLORIDE 104 mmol/L (97-110); CREATININE 0.63 mg/dl (0.44-1.00); GLUCOSE 97 mg/dl (70-220); POTASSIUM 4.3 mmol/L (3.5-5.1); SODIUM 139 mmol/L (135-144)
[2017-04-04] MEDS: POLYETHYLENE GLYCOL 17 GM PACKET GTB ×2 (08:58→21:00)
[2017-04-04] MEDS: FAMOTIDINE 20 MG INJ IV ×2 (08:58→22:21)
[2017-04-04 10:42] LABS: HEMATOCRIT 23.3 % (37.0-47.0); HEMOGLOBIN 7.8 g/dl (12.0-16.0)
[2017-04-04] MEDS: APIXABAN 5 MG TABLET PO ×3 (11:00→21:00)
[2017-04-04] MEDS: SOD CHLORIDE 0.9% 1,000 ML IV (12:21)
[2017-04-04] MEDS: MEROPENEM 1 GM/50ML(PMX) 50 ML IVPB ×2 (14:14→22:22)
[2017-04-04] MEDS: ACETAMINOPHEN 325 MG TAB PO (15:27)
[2017-04-04 15:47] LABS: IMMEDIATE SPIN CROSSMATCH 1 1
[2017-04-04] MEDS ORDERED: MAGNESIUM HYDROXIDE 30ML CUP PO (17:30)
[2017-04-05] MEDS: morphine 10 MG INJ IV ×5 (02:25→20:43)
[2017-04-05] MEDS: DIPHENHYDRAMINE 50 MG INJ IV ×5 (02:25→20:47)
[2017-04-05] MEDS: MEROPENEM 1 GM/50ML(PMX) 50 ML IVPB ×3 (06:50→22:33)
[2017-04-05] MEDS: SOD CHLORIDE 0.9% 1,000 ML IV ×2 (06:51→08:52)
[2017-04-05 07:10] LABS: ADD MAN DIFF? NO
[2017-04-05 07:16] LABS: BASOPHIL # 0.1 10^3/ul (0.0-0.1); EOSINOPHILS # 0.6 10^3/ul (0.0-0.5); EOSINOPHILS % 5.6 % (0.0-7.0); HEMATOCRIT 26.3 % (37.0-47.0); HEMOGLOBIN 8.9 g/dl (12.0-16.0); LYMPHOCYTES # 3.1 10^3/ul (0.8-2.9); LYMPHOCYTES % 27.1 % (15.0-51.0); MEAN CORPUSCULAR HEMOGLOBIN 29.6 pg (29.0-33.0); MEAN CORPUSCULAR HGB CONC 33.8 g/dl (32.0-37.0); MEAN CORPUSCULAR VOLUME 87.4 fl (82.0-101.0); MEAN PLATELET VOLUME 10.2 fl (7.4-10.4); MONOCYTE # 1.3 10^3/ul (0.3-0.9); MONOCYTES % 11.4 % (0.0-11.0); NEUTROPHIL # 6.1 10^3/ul (1.6-7.5); NEUTROPHILS % 53.1 % (39.0-77.0); NUCLEATED RED BLOOD CELLS # 0.1 10^3/ul (0.0-0.0); NUCLEATED RED BLOOD CELLS% 1.1 /100WBC (0.0-0.0); PLATELET COUNT 310 10^3/UL (140-415); RED BLOOD COUNT 3.01 10^6/ul (4.20-5.40)
[2017-04-05 07:16] LABS: WHITE BLOOD COUNT 11.4 10^3/ul (4.8-10.8)
[2017-04-05 07:37] LABS: ANION GAP 13 (8-16); BLOOD UREA NITROGEN 10 mg/dl (7-20); CARBON DIOXIDE 27 mmol/L (21-31); CHLORIDE 104 mmol/L (97-110); CREATININE 0.58 mg/dl (0.44-1.00); GLUCOSE 114 mg/dl (70-220); POTASSIUM 4.7 mmol/L (3.5-5.1); SODIUM 139 mmol/L (135-144)
[2017-04-05] MEDS: POLYETHYLENE GLYCOL 17 GM PACKET GTB ×2 (09:02→20:42)
[2017-04-05] MEDS: APIXABAN 5 MG TABLET PO ×2 (09:03→20:43)
[2017-04-05] MEDS: FAMOTIDINE 20 MG INJ IV ×2 (09:03→20:42)
[2017-04-05 15:12] LABS: PROCALCITONIN 0.27 ng/mL (<0.10)
[2017-04-05] MEDS: BISACODYL (EC) 5 MG TAB PO (20:53)
[2017-04-06] MEDS: DIPHENHYDRAMINE 50 MG INJ IV ×6 (00:45→21:26)
[2017-04-06] MEDS: morphine 10 MG INJ IV ×6 (00:46→21:28)
[2017-04-06] MEDS: SOD CHLORIDE 0.9% 1,000 ML IV (04:38)
[2017-04-06] MEDS: MEROPENEM 1 GM/50ML(PMX) 50 ML IVPB ×3 (06:04→21:33)
[2017-04-06 06:21] LABS: WHITE BLOOD COUNT 10.6 10^3/ul (4.8-10.8)
[2017-04-06 06:21] LABS: HEMATOCRIT 29.1 % (37.0-47.0); HEMOGLOBIN 9.8 g/dl (12.0-16.0); MEAN CORPUSCULAR HEMOGLOBIN 29.7 pg (29.0-33.0); MEAN CORPUSCULAR HGB CONC 33.7 g/dl (32.0-37.0); MEAN CORPUSCULAR VOLUME 88.2 fl (82.0-101.0); MEAN PLATELET VOLUME 10.1 fl (7.4-10.4); NUCLEATED RED BLOOD CELLS% 1.2 /100WBC (0.0-0.0); PLATELET COUNT 357 10^3/UL (140-415); RED CELL DISTRIBUTION WIDTH 19.2 % (11.5-14.5)
[2017-04-06 06:51] LABS: ANION GAP 16 (8-16); BLOOD UREA NITROGEN 12 mg/dl (7-20); CALCIUM 9.1 mg/dl (8.4-10.2); CARBON DIOXIDE 26 mmol/L (21-31); CHLORIDE 103 mmol/L (97-110); CREATININE 0.62 mg/dl (0.44-1.00); GLUCOSE 101 mg/dl (70-220); POTASSIUM 4.5 mmol/L (3.5-5.1); SODIUM 140 mmol/L (135-144)
[2017-04-06 06:59] LABS: POSITIVE DIFF @See below
[2017-04-06 07:00] LABS: ADD MAN DIFF? YES
[2017-04-06 09:23] LABS: ANISOCYTOSIS 1+ (0-0); BASOPHIL #M 0.2 10^3/ul (0.0-0.0); BASOPHILS % (M) 2 % (0-2); EOSINOPHILS % (M) 6 % (0-7); ERYTHROBLAST% (NRBC) (M) 1 % (0-0); GIANT THROMBO% (M) 5 % (0-0); LYMPHOCYTES #M 4.8 10^3/ul (0.8-2.9); LYMPHOCYTES % (M) 46 % (15-51); MONOCYTE #M 1.3 10^3/ul (0.3-0.9); MONOCYTES % (M) 13 % (0-11); OVALOCYTES 1+ (0-0); PLATELET ESTIMATE NORMAL; POIKILOCYTOSIS 2+ (0-0); POLYCHROMASIA 2+ (0-0); SEGMENTED NEUTROPHILS (M) % 33 % (39-77); SMUDGE%M 14 % (0-0); TARGET CELLS 2+ (0-0)
[2017-04-06] MEDS: APIXABAN 5 MG TABLET PO ×2 (09:43→21:29)
[2017-04-06] MEDS: BISACODYL (EC) 5 MG TAB PO (09:43)
[2017-04-06] MEDS: FAMOTIDINE 20 MG INJ IV ×2 (09:44→21:27)
[2017-04-06] MEDS: POLYETHYLENE GLYCOL 17 GM PACKET GTB ×2 (09:46→21:00)
[2017-04-07] MEDS: SOD CHLORIDE 0.9% 1,000 ML IV ×2 (01:32→20:52)
[2017-04-07] MEDS: morphine 10 MG INJ IV ×6 (01:34→22:24)
[2017-04-07] MEDS: DIPHENHYDRAMINE 50 MG INJ IV ×6 (01:35→22:24)
[2017-04-07] MEDS: MEROPENEM 1 GM/50ML(PMX) 50 ML IVPB ×3 (05:29→22:00)
[2017-04-07 06:27] LABS: ADD MAN DIFF? NO
[2017-04-07 06:33] LABS: WHITE BLOOD COUNT 12.4 10^3/ul (4.8-10.8)
[2017-04-07 06:33] LABS: BASOPHIL # 0.1 10^3/ul (0.0-0.1); BASOPHILS % 0.9 % (0.0-2.0); EOSINOPHILS # 0.4 10^3/ul (0.0-0.5); EOSINOPHILS % 3.5 % (0.0-7.0); HEMATOCRIT 27.1 % (37.0-47.0); HEMOGLOBIN 9.1 g/dl (12.0-16.0); LYMPHOCYTES % 32.2 % (15.0-51.0); MEAN CORPUSCULAR HEMOGLOBIN 29.3 pg (29.0-33.0); MEAN CORPUSCULAR HGB CONC 33.6 g/dl (32.0-37.0); MEAN CORPUSCULAR VOLUME 87.1 fl (82.0-101.0); MEAN PLATELET VOLUME 10.4 fl (7.4-10.4); MONOCYTE # 0.9 10^3/ul (0.3-0.9); MONOCYTES % 6.9 % (0.0-11.0); NEUTROPHIL # 6.8 10^3/ul (1.6-7.5); NEUTROPHILS % 55.1 % (39.0-77.0); NUCLEATED RED BLOOD CELLS # 0.1 10^3/ul (0.0-0.0); NUCLEATED RED BLOOD CELLS% 0.7 /100WBC (0.0-0.0); PLATELET COUNT 270 10^3/UL (140-415); RED BLOOD COUNT 3.11 10^6/ul (4.20-5.40); RED CELL DISTRIBUTION WIDTH 19.2 % (11.5-14.5)
[2017-04-07 06:47] LABS: ANION GAP 17 (8-16); BLOOD UREA NITROGEN 12 mg/dl (7-20); CALCIUM 8.9 mg/dl (8.4-10.2); CARBON DIOXIDE 28 mmol/L (21-31); CHLORIDE 103 mmol/L (97-110); GLUCOSE 96 mg/dl (70-220); POTASSIUM 4.8 mmol/L (3.5-5.1); SODIUM 143 mmol/L (135-144)
[2017-04-07] MEDS: FAMOTIDINE 20 MG INJ IV ×2 (10:18→21:53)
[2017-04-07] MEDS: APIXABAN 5 MG TABLET PO ×2 (10:18→21:52)
[2017-04-07] MEDS: POLYETHYLENE GLYCOL 17 GM PACKET GTB ×2 (10:19→21:53)
[2017-04-07] MEDS: ONDANSETRON 4 MG INJ IV (14:59)
[2017-04-08] MEDS: DIPHENHYDRAMINE 50 MG INJ IV ×6 (02:28→22:31)
[2017-04-08] MEDS: morphine 10 MG INJ IV ×6 (02:29→22:31)
[2017-04-08] MEDS: SOD CHLORIDE 0.9% 1,000 ML IV ×2 (02:35→18:33)
[2017-04-08] MEDS: MEROPENEM 1 GM/50ML(PMX) 50 ML IVPB (05:11)
[2017-04-08 06:16] LABS: ADD MAN DIFF? NO
[2017-04-08 06:28] LABS: BASOPHIL # 0.1 10^3/ul (0.0-0.1); BASOPHILS % 1.3 % (0.0-2.0); EOSINOPHILS # 0.7 10^3/ul (0.0-0.5); EOSINOPHILS % 6.6 % (0.0-7.0); HEMATOCRIT 27.2 % (37.0-47.0); HEMOGLOBIN 9.2 g/dl (12.0-16.0); LYMPHOCYTES # 4.9 10^3/ul (0.8-2.9); LYMPHOCYTES % 44.2 % (15.0-51.0); MEAN CORPUSCULAR HEMOGLOBIN 29.7 pg (29.0-33.0); MEAN CORPUSCULAR HGB CONC 33.8 g/dl (32.0-37.0); MEAN CORPUSCULAR VOLUME 87.7 fl (82.0-101.0); MEAN PLATELET VOLUME 10.5 fl (7.4-10.4); MONOCYTE # 1.4 10^3/ul (0.3-0.9); MONOCYTES % 12.9 % (0.0-11.0); NEUTROPHIL # 3.8 10^3/ul (1.6-7.5); NUCLEATED RED BLOOD CELLS # 0.1 10^3/ul (0.0-0.0); NUCLEATED RED BLOOD CELLS% 0.7 /100WBC (0.0-0.0); PLATELET COUNT 304 10^3/UL (140-415)
[2017-04-08 06:42] LABS: ANION GAP 13 (8-16); BLOOD UREA NITROGEN 13 mg/dl (7-20); CALCIUM 8.7 mg/dl (8.4-10.2); CARBON DIOXIDE 27 mmol/L (21-31); CHLORIDE 103 mmol/L (97-110); CREATININE 0.69 mg/dl (0.44-1.00); GLUCOSE 128 mg/dl (70-220); POTASSIUM 4.4 mmol/L (3.5-5.1); SODIUM 139 mmol/L (135-144)
[2017-04-08] MEDS: POLYETHYLENE GLYCOL 17 GM PACKET GTB ×2 (10:12→21:00)
[2017-04-08] MEDS: FAMOTIDINE 20 MG INJ IV ×2 (10:12→22:30)
[2017-04-08] MEDS: APIXABAN 5 MG TABLET PO ×2 (10:13→22:30)
[2017-04-08] MEDS: ONDANSETRON 4 MG INJ IV (14:30)
[2017-04-09] MEDS: morphine 10 MG INJ IV ×5 (02:30→19:53)
[2017-04-09] MEDS: DIPHENHYDRAMINE 50 MG INJ IV ×5 (02:30→19:52)
[2017-04-09 06:03] LABS: ADD MAN DIFF? NO
[2017-04-09 06:13] LABS: BASOPHIL # 0.1 10^3/ul (0.0-0.1); BASOPHILS % 1.1 % (0.0-2.0); EOSINOPHILS # 0.6 10^3/ul (0.0-0.5); EOSINOPHILS % 4.2 % (0.0-7.0); HEMATOCRIT 25.4 % (37.0-47.0); HEMOGLOBIN 8.6 g/dl (12.0-16.0); LYMPHOCYTES # 3.7 10^3/ul (0.8-2.9); LYMPHOCYTES % 27.6 % (15.0-51.0); MEAN CORPUSCULAR HEMOGLOBIN 29.4 pg (29.0-33.0); MEAN CORPUSCULAR HGB CONC 33.9 g/dl (32.0-37.0); MEAN CORPUSCULAR VOLUME 86.7 fl (82.0-101.0); MONOCYTE # 1.3 10^3/ul (0.3-0.9); MONOCYTES % 9.5 % (0.0-11.0); NEUTROPHIL # 7.5 10^3/ul (1.6-7.5); NEUTROPHILS % 56.5 % (39.0-77.0); NUCLEATED RED BLOOD CELLS # 0.1 10^3/ul (0.0-0.0); NUCLEATED RED BLOOD CELLS% 0.6 /100WBC (0.0-0.0); PLATELET COUNT 266 10^3/UL (140-415); RED BLOOD COUNT 2.93 10^6/ul (4.20-5.40); RED CELL DISTRIBUTION WIDTH 18.8 % (11.5-14.5)
[2017-04-09 06:13] LABS: WHITE BLOOD COUNT 13.2 10^3/ul (4.8-10.8)
[2017-04-09 06:50] LABS: ANION GAP 14 (8-16); BLOOD UREA NITROGEN 12 mg/dl (7-20); CALCIUM 8.8 mg/dl (8.4-10.2); CARBON DIOXIDE 28 mmol/L (21-31); CHLORIDE 103 mmol/L (97-110); CREATININE 0.67 mg/dl (0.44-1.00); GLUCOSE 98 mg/dl (70-220); POTASSIUM 4.5 mmol/L (3.5-5.1); SODIUM 140 mmol/L (135-144)
[2017-04-09] MEDS: APIXABAN 5 MG TABLET PO ×2 (10:29→21:00)
[2017-04-09] MEDS: FAMOTIDINE 20 MG INJ IV ×2 (10:29→19:52)
[2017-04-09] MEDS: POLYETHYLENE GLYCOL 17 GM PACKET GTB ×2 (10:29→21:00)
[2017-04-09] MEDS: BISACODYL (EC) 5 MG TAB PO (11:58)
[2017-04-09] MEDS: SOD CHLORIDE 0.9% 1,000 ML IV (12:52)
[2017-04-09] MEDS: HEPARIN (100 UNITS/ML) 5 ML SYG CATHETER (22:00)
== END 2017-04-09 22:20 | disposition home or self-care (01) | DRG 872 ==
LOC: MS2 12:27 → E/R 07:40 → MS3 10:04 → MS2 18:04
PROC: 30233N1 Transfusion of Nonautologous Red Blood Cells into Peripheral Vein, Percutaneous Approach (ICD-10-PCS; principal; 2017-04-04)
DX: A41.51 Sepsis due to Escherichia coli [E. coli] (principal); E83.111 Hemochromatosis due to repeated red blood cell transfusions; N39.0 Urinary tract infection, site not specified; D73.89 Other diseases of spleen; Z16.12 Extended spectrum beta lactamase (ESBL) resistance; Z86.711 Personal history of pulmonary embolism; Z79.01 Long term (current) use of anticoagulants; R74.0 Nonspecific elevation of levels of transaminase and lactic acid dehydrogenase [LDH]; E83.19 Other disorders of iron metabolism; J02.0 Streptococcal pharyngitis; D57.1 Sickle-cell disease without crisis
CPT/HCPCS: 36415; 36430; 71045; 80048; 80053; 81001; 83605; 84145; 85014; 85018; 85025; 85045; 86850; 86900; 86901; 86920; 87040; 87081; 87086; 87400; 87880; 96365; 96375; 96376; 99285-25

== ENCOUNTER 2017-04-18 07:54 | Inpatient (IN) | payer OTHER ==
[2017-04-18] MEDS ORDERED: HYDROmorphONE 1 MG/ML SYG IV (08:45)
[2017-04-18] MEDS: SODIUM CHLORIDE 0.9% 1L BAG IV* (09:16)
[2017-04-18] MEDS: morphine 10 MG INJ IV ×4 (09:16→20:33)
[2017-04-18 09:25] LABS: ABNORMAL IP MESSAGE 1; ADD MAN DIFF? NO; BASOPHIL # 0.1 10^3/ul (0.0-0.1); EOSINOPHILS # 0.4 10^3/ul (0.0-0.5); EOSINOPHILS % 3.6 % (0.0-7.0); HEMATOCRIT 25.5 % (37.0-47.0); HEMOGLOBIN 8.8 g/dl (12.0-16.0); LYMPHOCYTES # 4.1 10^3/ul (0.8-2.9); LYMPHOCYTES % 32.9 % (15.0-51.0); MEAN CORPUSCULAR HEMOGLOBIN 30.2 pg (29.0-33.0); MEAN CORPUSCULAR HGB CONC 34.5 g/dl (32.0-37.0); MEAN CORPUSCULAR VOLUME 87.6 fl (82.0-101.0); MEAN PLATELET VOLUME 10.6 fl (7.4-10.4); MONOCYTE # 1.8 10^3/ul (0.3-0.9); MONOCYTES % 14.6 % (0.0-11.0); NEUTROPHIL # 5.8 10^3/ul (1.6-7.5); NEUTROPHILS % 46.9 % (39.0-77.0); NUCLEATED RED BLOOD CELLS # 0.2 10^3/ul (0.0-0.0); NUCLEATED RED BLOOD CELLS% 1.3 /100WBC (0.0-0.0); PLATELET COUNT 360 10^3/UL (140-415); RED BLOOD COUNT 2.91 10^6/ul (4.20-5.40); RED CELL DISTRIBUTION WIDTH 19.3 % (11.5-14.5); RETICULOCYTE COUNT # 0.295 X10^6 (0.020-0.110); RETICULOCYTE COUNT % 10.1 % (0.5-1.5); RETICULOCYTE RBC 2.91
[2017-04-18 09:25] LABS: WHITE BLOOD COUNT 12.3 10^3/ul (4.8-10.8)
[2017-04-18 09:28] LABS: POSITIVE DIFF @See below
[2017-04-18 09:45] LABS: ADD UMIC YES; UR ASCORBIC ACID NEGATIVE (NEGATIVE); UR BACTERIA FEW /HPF (NONE SEEN); UR BILIRUBIN (Dip) NEGATIVE (NEGATIVE); UR BLOOD (Dip) 1+ mg/dL (NEGATIVE); UR BUDDING YEAST FEW /HPF (NONE SEEN); UR CLARITY CLOUDY (CLEAR); UR COLOR YELLOW (YELLOW); UR GLUCOSE (Dip) NEGATIVE (NEGATIVE); UR KETONES (Dip) NEGATIVE (NEGATIVE); UR LEUKOCYTE ESTERASE (Dip) 3+ Leu/ul (NEGATIVE); UR NITRITE (Dip) NEGATIVE (NEGATIVE); UR RBC 4 /HPF (0-5); UR SPECIFIC GRAVITY (Dip) 1.011 (1.003-1.030); UR SQUAMOUS EPITHELIAL CELL FEW /HPF (FEW); UR TOTAL PROTEIN (Dip) NEGATIVE (NEGATIVE); UR UROBILINOGEN (Dip) NEGATIVE (NEGATIVE); UR WBC > 182 /HPF (0-5)
[2017-04-18 09:49] LABS: ALANINE AMINOTRANSFERASE 109 IU/L (13-69); ALBUMIN 4.4 g/dl (3.3-4.9); ALKALINE PHOSPHATASE 131 IU/L (42-121); ANION GAP 19 (8-16); ASPARTATE AMINO TRANSFERASE 96 IU/L (15-46); BILIRUBIN,INDIRECT 1.9 mg/dl (0-1.1); BILIRUBIN,TOTAL 1.9 mg/dl (0.2-1.3); BLOOD UREA NITROGEN 14 mg/dl (7-20); CALCIUM 9.1 mg/dl (8.4-10.2); CARBON DIOXIDE 24 mmol/L (21-31); CHLORIDE 105 mmol/L (97-110); CREATININE 0.67 mg/dl (0.44-1.00); GLUCOSE 99 mg/dl (70-220); POTASSIUM 4.7 mmol/L (3.5-5.1); SODIUM 143 mmol/L (135-144); TOTAL PROTEIN 8.8 g/dl (6.1-8.1)
[2017-04-18 09:49] LABS: LACTIC ACID 1.2 mmol/L (0.5-2.0)
[2017-04-18 09:51] LABS: ACETAMINOPHEN < 10.0 ug/ml (10.0-30.0)
[2017-04-18 09:55] LABS: INR 1.15; PARTIAL THROMBOPLASTIN TIME 29.9 Sec (25.0-35.0); PROTIME 14.9 Sec (11.9-14.9); PT RATIO 1.2
[2017-04-18] MEDS: MEROPENEM 1 GM/50ML(PMX) 50 ML IVPB ×3 (09:59→22:07)
[2017-04-18] MEDS ORDERED: ALBUTEROL HFA 8 GM INHALER INH (11:30)
[2017-04-18] MEDS ORDERED: ONDANSETRON 4 MG TAB PO (11:30)
[2017-04-18] MEDS ORDERED: ZOLPIDEM 5 MG TAB PO (11:30)
[2017-04-18] MEDS ORDERED: ACETAMINOPHEN 325 MG TAB PO (12:00)
[2017-04-18] MEDS ORDERED: ONDANSETRON 4 MG INJ IV (12:00)
[2017-04-18] MEDS: DIPHENHYDRAMINE 25 MG CAP PO ×2 (12:10→16:18)
[2017-04-18] MEDS: ONDANSETRON 4 MG INJ IV (12:11)
[2017-04-18] MEDS: APIXABAN 5 MG TABLET PO ×2 (12:11→22:06)
[2017-04-18] MEDS: FOLIC ACID 1 MG TAB PO (12:11)
[2017-04-18] MEDS: HYDROXYUREA 500 MG CAP PO ×2 (12:12→22:06)
[2017-04-18] MEDS: SOD CHLORIDE 0.9% 1,000 ML IV (12:12)
[2017-04-18] MEDS: POLYETHYLENE GLYCOL 17 GM PACKET PO (12:13)
[2017-04-18 14:20] LABS: LACTIC ACID 0.8 mmol/L (0.5-2.0)
[2017-04-18] MEDS: DIPHENHYDRAMINE 50 MG INJ IV ×2 (16:50→20:33)
[2017-04-18 16:53] LABS: LACTIC ACID 0.7 mmol/L (0.5-2.0)
[2017-04-19] MEDS: morphine 10 MG INJ IV ×6 (00:37→20:42)
[2017-04-19] MEDS: DIPHENHYDRAMINE 50 MG INJ IV ×6 (00:37→20:41)
[2017-04-19] MEDS: MEROPENEM 1 GM/50ML(PMX) 50 ML IVPB ×3 (05:27→22:05)
[2017-04-19 06:59] LABS: ADD MAN DIFF? NO
[2017-04-19 07:06] LABS: BASOPHIL # 0.1 10^3/ul (0.0-0.1); EOSINOPHILS # 0.8 10^3/ul (0.0-0.5); EOSINOPHILS % 7.4 % (0.0-7.0); HEMATOCRIT 22.6 % (37.0-47.0); HEMOGLOBIN 7.6 g/dl (12.0-16.0); LYMPHOCYTES # 4.1 10^3/ul (0.8-2.9); LYMPHOCYTES % 36.5 % (15.0-51.0); MEAN CORPUSCULAR HEMOGLOBIN 29.7 pg (29.0-33.0); MEAN CORPUSCULAR HGB CONC 33.6 g/dl (32.0-37.0); MEAN CORPUSCULAR VOLUME 88.3 fl (82.0-101.0); MEAN PLATELET VOLUME 10.6 fl (7.4-10.4); MONOCYTE # 1.5 10^3/ul (0.3-0.9); MONOCYTES % 13.5 % (0.0-11.0); NEUTROPHIL # 4.5 10^3/ul (1.6-7.5); NEUTROPHILS % 40.3 % (39.0-77.0); NUCLEATED RED BLOOD CELLS # 0.2 10^3/ul (0.0-0.0); NUCLEATED RED BLOOD CELLS% 1.5 /100WBC (0.0-0.0); PLATELET COUNT 307 10^3/UL (140-415); RED BLOOD COUNT 2.56 10^6/ul (4.20-5.40); RED CELL DISTRIBUTION WIDTH 19.4 % (11.5-14.5)
[2017-04-19 07:06] LABS: WHITE BLOOD COUNT 11.1 10^3/ul (4.8-10.8)
[2017-04-19 07:36] LABS: ANION GAP 11 (8-16); BLOOD UREA NITROGEN 13 mg/dl (7-20); CALCIUM 8.4 mg/dl (8.4-10.2); CARBON DIOXIDE 24 mmol/L (21-31); CHLORIDE 106 mmol/L (97-110); CREATININE 0.74 mg/dl (0.44-1.00); GLUCOSE 105 mg/dl (70-220); POTASSIUM 4.3 mmol/L (3.5-5.1); SODIUM 137 mmol/L (135-144)
[2017-04-19] MEDS: APIXABAN 5 MG TABLET PO ×2 (08:26→20:41)
[2017-04-19] MEDS: FOLIC ACID 1 MG TAB PO (08:26)
[2017-04-19] MEDS: POLYETHYLENE GLYCOL 17 GM PACKET PO (08:27)
[2017-04-19] MEDS: SOD CHLORIDE 0.9% 1,000 ML IV (08:28)
[2017-04-19] MEDS: HYDROXYUREA 500 MG CAP PO ×2 (08:34→20:48)
[2017-04-20] MEDS: morphine 10 MG INJ IV ×6 (00:38→20:43)
[2017-04-20] MEDS: DIPHENHYDRAMINE 50 MG INJ IV ×7 (00:40→20:43)
[2017-04-20] MEDS: SOD CHLORIDE 0.9% 1,000 ML IV ×2 (03:30→06:39)
[2017-04-20] MEDS: MEROPENEM 1 GM/50ML(PMX) 50 ML IVPB ×3 (05:33→22:08)
[2017-04-20 06:24] LABS: ADD MAN DIFF? NO
[2017-04-20 06:35] LABS: BASOPHIL # 0.1 10^3/ul (0.0-0.1); EOSINOPHILS # 0.3 10^3/ul (0.0-0.5); EOSINOPHILS % 3.9 % (0.0-7.0); HEMATOCRIT 20.5 % (37.0-47.0); HEMOGLOBIN 7.2 g/dl (12.0-16.0); LYMPHOCYTES # 3.7 10^3/ul (0.8-2.9); LYMPHOCYTES % 41.9 % (15.0-51.0); MEAN CORPUSCULAR HEMOGLOBIN 30.4 pg (29.0-33.0); MEAN CORPUSCULAR HGB CONC 35.1 g/dl (32.0-37.0); MEAN CORPUSCULAR VOLUME 86.5 fl (82.0-101.0); MEAN PLATELET VOLUME 10.9 fl (7.4-10.4); MONOCYTE # 0.5 10^3/ul (0.3-0.9); MONOCYTES % 6.2 % (0.0-11.0); NEUTROPHIL # 3.9 10^3/ul (1.6-7.5); NEUTROPHILS % 44.7 % (39.0-77.0); NUCLEATED RED BLOOD CELLS # 0.2 10^3/ul (0.0-0.0); NUCLEATED RED BLOOD CELLS% 2.2 /100WBC (0.0-0.0); PLATELET COUNT 250 10^3/UL (140-415); RED BLOOD COUNT 2.37 10^6/ul (4.20-5.40); RED CELL DISTRIBUTION WIDTH 18.7 % (11.5-14.5)
[2017-04-20 06:35] LABS: WHITE BLOOD COUNT 8.7 10^3/ul (4.8-10.8)
[2017-04-20 06:56] LABS: ANION GAP 17 (8-16); BLOOD UREA NITROGEN 12 mg/dl (7-20); CALCIUM 8.3 mg/dl (8.4-10.2); CARBON DIOXIDE 25 mmol/L (21-31); CHLORIDE 104 mmol/L (97-110); CREATININE 0.63 mg/dl (0.44-1.00); GLUCOSE 100 mg/dl (70-220); POTASSIUM 4.3 mmol/L (3.5-5.1); SODIUM 142 mmol/L (135-144)
[2017-04-20] MEDS: FOLIC ACID 1 MG TAB PO (08:36)
[2017-04-20] MEDS: APIXABAN 5 MG TABLET PO ×2 (08:36→20:42)
[2017-04-20] MEDS: POLYETHYLENE GLYCOL 17 GM PACKET PO (08:37)
[2017-04-20] MEDS: HYDROXYUREA 500 MG CAP PO ×2 (08:38→20:48)
[2017-04-20] MEDS: ACETAMINOPHEN 325 MG TAB PO (13:55)
[2017-04-20 14:04] LABS: IMMEDIATE SPIN CROSSMATCH 1 1
[2017-04-21] MEDS: morphine 10 MG INJ IV ×6 (00:31→20:36)
[2017-04-21] MEDS: DIPHENHYDRAMINE 50 MG INJ IV ×6 (00:32→20:35)
[2017-04-21] MEDS: MEROPENEM 1 GM/50ML(PMX) 50 ML IVPB ×3 (05:31→22:38)
[2017-04-21] MEDS: BISACODYL (EC) 5 MG TAB PO (05:31)
[2017-04-21 05:41] LABS: ADD MAN DIFF? NO
[2017-04-21 05:45] LABS: WHITE BLOOD COUNT 10.8 10^3/ul (4.8-10.8)
[2017-04-21 05:45] LABS: BASOPHIL # 0.1 10^3/ul (0.0-0.1); BASOPHILS % 1.3 % (0.0-2.0); EOSINOPHILS # 0.7 10^3/ul (0.0-0.5); EOSINOPHILS % 6.7 % (0.0-7.0); HEMATOCRIT 25.3 % (37.0-47.0); HEMOGLOBIN 8.6 g/dl (12.0-16.0); LYMPHOCYTES # 3.9 10^3/ul (0.8-2.9); LYMPHOCYTES % 36.4 % (15.0-51.0); MEAN CORPUSCULAR HEMOGLOBIN 29.2 pg (29.0-33.0); MEAN CORPUSCULAR VOLUME 85.8 fl (82.0-101.0); MEAN PLATELET VOLUME 10.1 fl (7.4-10.4); MONOCYTE # 1.3 10^3/ul (0.3-0.9); MONOCYTES % 11.6 % (0.0-11.0); NEUTROPHIL # 4.6 10^3/ul (1.6-7.5); NEUTROPHILS % 42.7 % (39.0-77.0); NUCLEATED RED BLOOD CELLS # 0.2 10^3/ul (0.0-0.0); NUCLEATED RED BLOOD CELLS% 1.9 /100WBC (0.0-0.0); PLATELET COUNT 292 10^3/UL (140-415); RED BLOOD COUNT 2.95 10^6/ul (4.20-5.40); RED CELL DISTRIBUTION WIDTH 18.9 % (11.5-14.5)
[2017-04-21 06:44] LABS: ANION GAP 18 (8-16); BLOOD UREA NITROGEN 11 mg/dl (7-20); CALCIUM 8.9 mg/dl (8.4-10.2); CARBON DIOXIDE 25 mmol/L (21-31); CHLORIDE 104 mmol/L (97-110); GLUCOSE 92 mg/dl (70-220); POTASSIUM 4.6 mmol/L (3.5-5.1); SODIUM 142 mmol/L (135-144)
[2017-04-21] MEDS: APIXABAN 5 MG TABLET PO ×2 (08:35→22:39)
[2017-04-21] MEDS: FOLIC ACID 1 MG TAB PO (08:35)
[2017-04-21] MEDS: HYDROXYUREA 500 MG CAP PO ×2 (08:37→22:50)
[2017-04-21] MEDS: POLYETHYLENE GLYCOL 17 GM PACKET PO (08:43)
[2017-04-21] MEDS: SOD CHLORIDE 0.9% 1,000 ML IV ×2 (12:32→19:30)
[2017-04-21 17:11] LABS: PROCALCITONIN 0.26 ng/mL (<0.10)
[2017-04-21] MEDS: KETOCONAZOLE 2% SHAMPOO 120 ML BTL TOP (17:43)
[2017-04-21] MEDS: FLUCONAZOLE 100 MG TAB PO (18:02)
[2017-04-22] MEDS: morphine 10 MG INJ IV ×6 (00:36→20:32)
[2017-04-22] MEDS: DIPHENHYDRAMINE 50 MG INJ IV ×6 (00:36→20:32)
[2017-04-22] MEDS: MEROPENEM 1 GM/50ML(PMX) 50 ML IVPB ×3 (05:21→21:53)
[2017-04-22 05:36] LABS: ADD MAN DIFF? NO
[2017-04-22 05:43] LABS: ABNORMAL IP MESSAGE 1; BASOPHIL # 0.1 10^3/ul (0.0-0.1); BASOPHILS % 1.3 % (0.0-2.0); EOSINOPHILS # 0.8 10^3/ul (0.0-0.5); HEMATOCRIT 24.7 % (37.0-47.0); HEMOGLOBIN 8.5 g/dl (12.0-16.0); LYMPHOCYTES % 38.4 % (15.0-51.0); MEAN CORPUSCULAR HEMOGLOBIN 29.7 pg (29.0-33.0); MEAN CORPUSCULAR HGB CONC 34.4 g/dl (32.0-37.0); MEAN CORPUSCULAR VOLUME 86.4 fl (82.0-101.0); MEAN PLATELET VOLUME 10.4 fl (7.4-10.4); MONOCYTE # 1.8 10^3/ul (0.3-0.9); NEUTROPHIL # 3.6 10^3/ul (1.6-7.5); NEUTROPHILS % 34.3 % (39.0-77.0); NUCLEATED RED BLOOD CELLS # 0.2 10^3/ul (0.0-0.0); NUCLEATED RED BLOOD CELLS% 1.6 /100WBC (0.0-0.0); PLATELET COUNT 322 10^3/UL (140-415); RED BLOOD COUNT 2.86 10^6/ul (4.20-5.40); RED CELL DISTRIBUTION WIDTH 19.6 % (11.5-14.5)
[2017-04-22 05:43] LABS: WHITE BLOOD COUNT 10.5 10^3/ul (4.8-10.8)
[2017-04-22 06:10] LABS: POSITIVE DIFF @See below
[2017-04-22 06:17] LABS: ALBUMIN 3.9 g/dl (3.3-4.9)
[2017-04-22 06:51] LABS: ANION GAP 14 (8-16); BLOOD UREA NITROGEN 11 mg/dl (7-20); CALCIUM 8.7 mg/dl (8.4-10.2); CARBON DIOXIDE 27 mmol/L (21-31); CHLORIDE 105 mmol/L (97-110); CREATININE 0.58 mg/dl (0.44-1.00); GLUCOSE 102 mg/dl (70-220); POTASSIUM 4.9 mmol/L (3.5-5.1); SODIUM 141 mmol/L (135-144)
[2017-04-22] MEDS: FLUCONAZOLE 100 MG TAB PO (08:25)
[2017-04-22] MEDS: FOLIC ACID 1 MG TAB PO (08:25)
[2017-04-22] MEDS: APIXABAN 5 MG TABLET PO ×2 (08:25→20:32)
[2017-04-22] MEDS: HYDROXYUREA 500 MG CAP PO ×2 (08:46→20:55)
[2017-04-22] MEDS: KETOCONAZOLE 2% SHAMPOO 120 ML BTL TOP (08:58)
[2017-04-22] MEDS: POLYETHYLENE GLYCOL 17 GM PACKET PO (08:59)
[2017-04-22] MEDS: SOD CHLORIDE 0.9% 1,000 ML IV (13:56)
[2017-04-23] MEDS: DIPHENHYDRAMINE 50 MG INJ IV ×6 (00:35→22:28)
[2017-04-23] MEDS: morphine 10 MG INJ IV ×6 (00:35→22:28)
[2017-04-23] MEDS: MEROPENEM 1 GM/50ML(PMX) 50 ML IVPB ×3 (05:14→21:12)
[2017-04-23 05:34] LABS: ADD MAN DIFF? NO
[2017-04-23 05:40] LABS: ABNORMAL IP MESSAGE 1; BASOPHIL # 0.1 10^3/ul (0.0-0.1); BASOPHILS % 1.1 % (0.0-2.0); EOSINOPHILS # 0.9 10^3/ul (0.0-0.5); EOSINOPHILS % 7.7 % (0.0-7.0); HEMATOCRIT 25.7 % (37.0-47.0); HEMOGLOBIN 8.8 g/dl (12.0-16.0); LYMPHOCYTES # 5.1 10^3/ul (0.8-2.9); LYMPHOCYTES % 42.8 % (15.0-51.0); MEAN CORPUSCULAR HEMOGLOBIN 29.8 pg (29.0-33.0); MEAN CORPUSCULAR HGB CONC 34.2 g/dl (32.0-37.0); MEAN CORPUSCULAR VOLUME 87.1 fl (82.0-101.0); MEAN PLATELET VOLUME 10.1 fl (7.4-10.4); MONOCYTE # 1.9 10^3/ul (0.3-0.9); MONOCYTES % 15.8 % (0.0-11.0); NEUTROPHIL # 3.8 10^3/ul (1.6-7.5); NEUTROPHILS % 31.6 % (39.0-77.0); NUCLEATED RED BLOOD CELLS # 0.2 10^3/ul (0.0-0.0); NUCLEATED RED BLOOD CELLS% 1.8 /100WBC (0.0-0.0); PLATELET COUNT 330 10^3/UL (140-415); RED BLOOD COUNT 2.95 10^6/ul (4.20-5.40); RED CELL DISTRIBUTION WIDTH 19.9 % (11.5-14.5)
[2017-04-23 05:54] LABS: POSITIVE DIFF @See below
[2017-04-23 05:56] LABS: ANION GAP 15 (8-16); BLOOD UREA NITROGEN 12 mg/dl (7-20); CALCIUM 8.7 mg/dl (8.4-10.2); CARBON DIOXIDE 27 mmol/L (21-31); CHLORIDE 104 mmol/L (97-110); CREATININE 0.58 mg/dl (0.44-1.00); GLUCOSE 104 mg/dl (70-220); POTASSIUM 4.6 mmol/L (3.5-5.1); SODIUM 141 mmol/L (135-144)
[2017-04-23] MEDS: KETOCONAZOLE 2% SHAMPOO 120 ML BTL TOP ×2 (09:00→21:26)
[2017-04-23] MEDS: APIXABAN 5 MG TABLET PO ×2 (09:53→21:12)
[2017-04-23] MEDS: FLUCONAZOLE 100 MG TAB PO (09:53)
[2017-04-23] MEDS: FOLIC ACID 1 MG TAB PO (09:54)
[2017-04-23] MEDS: HYDROXYUREA 500 MG CAP PO ×2 (09:56→21:14)
[2017-04-23] MEDS: POLYETHYLENE GLYCOL 17 GM PACKET PO (09:57)
[2017-04-23] MEDS: SOD CHLORIDE 0.9% 1,000 ML IV ×2 (11:30→22:32)
[2017-04-24] MEDS: DIPHENHYDRAMINE 50 MG INJ IV ×6 (02:33→22:23)
[2017-04-24] MEDS: morphine 10 MG INJ IV ×6 (02:34→22:24)
[2017-04-24] MEDS: MEROPENEM 1 GM/50ML(PMX) 50 ML IVPB ×3 (05:33→21:16)
[2017-04-24 05:59] LABS: ADD MAN DIFF? NO
[2017-04-24 06:02] LABS: BASOPHIL # 0.1 10^3/ul (0.0-0.1); BASOPHILS % 1.2 % (0.0-2.0); EOSINOPHILS # 0.8 10^3/ul (0.0-0.5); EOSINOPHILS % 6.8 % (0.0-7.0); HEMATOCRIT 24.4 % (37.0-47.0); HEMOGLOBIN 8.5 g/dl (12.0-16.0); LYMPHOCYTES # 4.7 10^3/ul (0.8-2.9); LYMPHOCYTES % 40.1 % (15.0-51.0); MEAN CORPUSCULAR HGB CONC 34.8 g/dl (32.0-37.0); MEAN CORPUSCULAR VOLUME 86.2 fl (82.0-101.0); MEAN PLATELET VOLUME 10.1 fl (7.4-10.4); MONOCYTE # 1.4 10^3/ul (0.3-0.9); MONOCYTES % 11.9 % (0.0-11.0); NEUTROPHIL # 4.6 10^3/ul (1.6-7.5); NEUTROPHILS % 39.2 % (39.0-77.0); NUCLEATED RED BLOOD CELLS # 0.2 10^3/ul (0.0-0.0); NUCLEATED RED BLOOD CELLS% 1.7 /100WBC (0.0-0.0); PLATELET COUNT 295 10^3/UL (140-415); RED BLOOD COUNT 2.83 10^6/ul (4.20-5.40); RED CELL DISTRIBUTION WIDTH 18.9 % (11.5-14.5)
[2017-04-24 06:02] LABS: WHITE BLOOD COUNT 11.7 10^3/ul (4.8-10.8)
[2017-04-24 06:33] LABS: ANION GAP 16 (8-16); BLOOD UREA NITROGEN 13 mg/dl (7-20); CALCIUM 8.7 mg/dl (8.4-10.2); CARBON DIOXIDE 25 mmol/L (21-31); CHLORIDE 105 mmol/L (97-110); CREATININE 0.55 mg/dl (0.44-1.00); GLUCOSE 125 mg/dl (70-220); POTASSIUM 4.6 mmol/L (3.5-5.1); SODIUM 141 mmol/L (135-144)
[2017-04-24] MEDS: SOD CHLORIDE 0.9% 1,000 ML IV ×2 (07:30→21:17)
[2017-04-24] MEDS: KETOCONAZOLE 2% SHAMPOO 120 ML BTL TOP (09:00)
[2017-04-24] MEDS: POLYETHYLENE GLYCOL 17 GM PACKET PO (09:19)
[2017-04-24] MEDS: FLUCONAZOLE 100 MG TAB PO (09:19)
[2017-04-24] MEDS: APIXABAN 5 MG TABLET PO ×2 (09:19→21:16)
[2017-04-24] MEDS: HYDROXYUREA 500 MG CAP PO ×2 (09:20→21:22)
[2017-04-24] MEDS: FOLIC ACID 1 MG TAB PO (09:21)
[2017-04-24 11:03] LABS: ADD UMIC YES; UR ASCORBIC ACID NEGATIVE (NEGATIVE); UR BACTERIA FEW /HPF (NONE SEEN); UR BILIRUBIN (Dip) NEGATIVE (NEGATIVE); UR BLOOD (Dip) 1+ mg/dL (NEGATIVE); UR CLARITY SLIGHTLY CLOUDY (CLEAR); UR COLOR YELLOW (YELLOW); UR GLUCOSE (Dip) NEGATIVE (NEGATIVE); UR KETONES (Dip) NEGATIVE (NEGATIVE); UR LEUKOCYTE ESTERASE (Dip) 3+ Leu/ul (NEGATIVE); UR NITRITE (Dip) NEGATIVE (NEGATIVE); UR RBC 8 /HPF (0-5); UR SQUAMOUS EPITHELIAL CELL FEW /HPF (FEW); UR TOTAL PROTEIN (Dip) NEGATIVE (NEGATIVE); UR UROBILINOGEN (Dip) NEGATIVE (NEGATIVE); UR WBC 10 /HPF (0-5)
[2017-04-24] MEDS: CLOTRIMAZOLE 1% 45 GM VAG CR VAG (21:17)
[2017-04-25] MEDS: morphine 10 MG INJ IV ×5 (02:20→19:59)
[2017-04-25] MEDS: DIPHENHYDRAMINE 50 MG INJ IV ×5 (02:21→19:58)
[2017-04-25] MEDS: SOD CHLORIDE 0.9% 1,000 ML IV ×2 (03:22→09:54)
[2017-04-25] MEDS: MEROPENEM 1 GM/50ML(PMX) 50 ML IVPB (05:31)
[2017-04-25 06:09] LABS: ADD MAN DIFF? NO
[2017-04-25 06:15] LABS: WHITE BLOOD COUNT 10.6 10^3/ul (4.8-10.8)
[2017-04-25 06:15] LABS: BASOPHIL # 0.1 10^3/ul (0.0-0.1); BASOPHILS % 1.2 % (0.0-2.0); EOSINOPHILS # 0.8 10^3/ul (0.0-0.5); EOSINOPHILS % 7.6 % (0.0-7.0); HEMATOCRIT 23.8 % (37.0-47.0); HEMOGLOBIN 8.3 g/dl (12.0-16.0); LYMPHOCYTES # 4.6 10^3/ul (0.8-2.9); LYMPHOCYTES % 43.5 % (15.0-51.0); MEAN CORPUSCULAR HEMOGLOBIN 30.1 pg (29.0-33.0); MEAN CORPUSCULAR HGB CONC 34.9 g/dl (32.0-37.0); MEAN CORPUSCULAR VOLUME 86.2 fl (82.0-101.0); MEAN PLATELET VOLUME 10.2 fl (7.4-10.4); MONOCYTE # 1.5 10^3/ul (0.3-0.9); MONOCYTES % 13.7 % (0.0-11.0); NEUTROPHIL # 3.5 10^3/ul (1.6-7.5); NEUTROPHILS % 33.1 % (39.0-77.0); NUCLEATED RED BLOOD CELLS # 0.1 10^3/ul (0.0-0.0); PLATELET COUNT 292 10^3/UL (140-415); RED BLOOD COUNT 2.76 10^6/ul (4.20-5.40); RED CELL DISTRIBUTION WIDTH 18.7 % (11.5-14.5)
[2017-04-25 06:33] LABS: ANION GAP 16 (8-16); BLOOD UREA NITROGEN 11 mg/dl (7-20); CALCIUM 8.7 mg/dl (8.4-10.2); CARBON DIOXIDE 26 mmol/L (21-31); CHLORIDE 104 mmol/L (97-110); CREATININE 0.62 mg/dl (0.44-1.00); GLUCOSE 106 mg/dl (70-220); POTASSIUM 4.7 mmol/L (3.5-5.1); SODIUM 141 mmol/L (135-144)
[2017-04-25] MEDS: POLYETHYLENE GLYCOL 17 GM PACKET PO (09:00)
[2017-04-25] MEDS: KETOCONAZOLE 2% SHAMPOO 120 ML BTL TOP ×2 (09:00→20:11)
[2017-04-25] MEDS: APIXABAN 5 MG TABLET PO ×2 (10:42→20:00)
[2017-04-25] MEDS: FLUCONAZOLE 100 MG TAB PO (10:42)
[2017-04-25] MEDS: FOLIC ACID 1 MG TAB PO (10:42)
[2017-04-25] MEDS: HYDROXYUREA 500 MG CAP PO ×2 (10:44→20:14)
[2017-04-25] MEDS: SOD CHLORIDE 0.9% 500 ML IV ×3 (13:00→23:00)
[2017-04-25] MEDS: CLOTRIMAZOLE 1% 45 GM VAG CR VAG (20:10)
[2017-04-26] MEDS: morphine 10 MG INJ IV ×6 (00:01→20:03)
[2017-04-26] MEDS: DIPHENHYDRAMINE 50 MG INJ IV ×7 (00:01→21:40)
[2017-04-26] MEDS: SOD CHLORIDE 0.9% 500 ML IV ×2 (07:10→19:00)
[2017-04-26 07:44] LABS: ADD MAN DIFF? NO
[2017-04-26 07:50] LABS: BASOPHIL # 0.1 10^3/ul (0.0-0.1); BASOPHILS % 0.5 % (0.0-2.0); EOSINOPHILS # 0.3 10^3/ul (0.0-0.5); EOSINOPHILS % 1.9 % (0.0-7.0); HEMATOCRIT 23.1 % (37.0-47.0); HEMOGLOBIN 7.7 g/dl (12.0-16.0); LYMPHOCYTES # 3.7 10^3/ul (0.8-2.9); LYMPHOCYTES % 26.1 % (15.0-51.0); MEAN CORPUSCULAR HEMOGLOBIN 28.7 pg (29.0-33.0); MEAN CORPUSCULAR HGB CONC 33.3 g/dl (32.0-37.0); MEAN CORPUSCULAR VOLUME 86.2 fl (82.0-101.0); MEAN PLATELET VOLUME 10.5 fl (7.4-10.4); MONOCYTE # 0.4 10^3/ul (0.3-0.9); MONOCYTES % 3.1 % (0.0-11.0); NEUTROPHIL # 9.4 10^3/ul (1.6-7.5); NUCLEATED RED BLOOD CELLS # 0.1 10^3/ul (0.0-0.0); NUCLEATED RED BLOOD CELLS% 0.5 /100WBC (0.0-0.0); PLATELET COUNT 230 10^3/UL (140-415); RED BLOOD COUNT 2.68 10^6/ul (4.20-5.40); RED CELL DISTRIBUTION WIDTH 18.7 % (11.5-14.5)
[2017-04-26 07:50] LABS: WHITE BLOOD COUNT 14.1 10^3/ul (4.8-10.8)
[2017-04-26 08:12] LABS: ANION GAP 14 (8-16); BLOOD UREA NITROGEN 12 mg/dl (7-20); CALCIUM 8.5 mg/dl (8.4-10.2); CARBON DIOXIDE 25 mmol/L (21-31); CHLORIDE 105 mmol/L (97-110); CREATININE 0.56 mg/dl (0.44-1.00); GLUCOSE 104 mg/dl (70-220); POTASSIUM 4.3 mmol/L (3.5-5.1); SODIUM 140 mmol/L (135-144)
[2017-04-26] MEDS: APIXABAN 5 MG TABLET PO ×2 (09:21→20:02)
[2017-04-26] MEDS: FLUCONAZOLE 100 MG TAB PO (09:22)
[2017-04-26] MEDS: FOLIC ACID 1 MG TAB PO (09:22)
[2017-04-26] MEDS: HYDROXYUREA 500 MG CAP PO ×2 (09:27→20:06)
[2017-04-26] MEDS: POLYETHYLENE GLYCOL 17 GM PACKET PO (09:30)
[2017-04-26] MEDS: KETOCONAZOLE 2% SHAMPOO 120 ML BTL TOP (11:46)
[2017-04-26] MEDS: ONDANSETRON 4 MG INJ IV (20:02)
[2017-04-26] MEDS: CLOTRIMAZOLE 1% 45 GM VAG CR VAG (20:04)
[2017-04-26] MEDS: SOD CHLORIDE 0.9% 250 ML IV* (21:40)
[2017-04-26] MEDS: ACETAMINOPHEN 325 MG TAB PO (21:40)
[2017-04-26 22:01] LABS: IMMEDIATE SPIN CROSSMATCH 1 1
[2017-04-27] MEDS: morphine 10 MG INJ IV ×6 (00:17→21:02)
[2017-04-27] MEDS: DIPHENHYDRAMINE 50 MG INJ IV ×6 (00:17→21:02)
[2017-04-27] MEDS: SOD CHLORIDE 0.9% 500 ML IV ×4 (02:30→21:01)
[2017-04-27] MEDS: FOLIC ACID 1 MG TAB PO (08:37)
[2017-04-27] MEDS: HYDROXYUREA 500 MG CAP PO ×2 (08:37→21:01)
[2017-04-27] MEDS: POLYETHYLENE GLYCOL 17 GM PACKET PO (08:38)
[2017-04-27] MEDS: APIXABAN 5 MG TABLET PO ×2 (08:38→20:58)
[2017-04-27] MEDS: FLUCONAZOLE 100 MG TAB PO (08:38)
[2017-04-27] MEDS: KETOCONAZOLE 2% SHAMPOO 120 ML BTL TOP (08:39)
[2017-04-28] MEDS: DIPHENHYDRAMINE 50 MG INJ IV ×5 (01:02→17:21)
[2017-04-28] MEDS: morphine 10 MG INJ IV ×5 (01:02→17:21)
[2017-04-28] MEDS: SOD CHLORIDE 0.9% 500 ML IV (06:00)
[2017-04-28] MEDS: APIXABAN 5 MG TABLET PO (09:14)
[2017-04-28] MEDS: FOLIC ACID 1 MG TAB PO (09:14)
[2017-04-28] MEDS: POLYETHYLENE GLYCOL 17 GM PACKET PO (09:15)
[2017-04-28] MEDS: FLUCONAZOLE 100 MG TAB PO (09:15)
[2017-04-28] MEDS: HYDROXYUREA 500 MG CAP PO (09:19)
[2017-04-28] MEDS: KETOCONAZOLE 2% SHAMPOO 120 ML BTL TOP (09:48)
[2017-04-28 12:53] LABS: ADD MAN DIFF? NO
[2017-04-28 12:55] LABS: BASOPHIL # 0.1 10^3/ul (0.0-0.1); BASOPHILS % 0.8 % (0.0-2.0); EOSINOPHILS # 0.5 10^3/ul (0.0-0.5); EOSINOPHILS % 3.5 % (0.0-7.0); HEMATOCRIT 25.4 % (37.0-47.0); HEMOGLOBIN 8.6 g/dl (12.0-16.0); LYMPHOCYTES # 3.6 10^3/ul (0.8-2.9); LYMPHOCYTES % 27.2 % (15.0-51.0); MEAN CORPUSCULAR HEMOGLOBIN 29.2 pg (29.0-33.0); MEAN CORPUSCULAR HGB CONC 33.9 g/dl (32.0-37.0); MEAN CORPUSCULAR VOLUME 86.1 fl (82.0-101.0); MEAN PLATELET VOLUME 9.7 fl (7.4-10.4); MONOCYTE # 1.2 10^3/ul (0.3-0.9); MONOCYTES % 8.8 % (0.0-11.0); NEUTROPHIL # 7.9 10^3/ul (1.6-7.5); NEUTROPHILS % 58.8 % (39.0-77.0); NUCLEATED RED BLOOD CELLS # 0.1 10^3/ul (0.0-0.0); NUCLEATED RED BLOOD CELLS% 0.5 /100WBC (0.0-0.0); PLATELET COUNT 255 10^3/UL (140-415); RED BLOOD COUNT 2.95 10^6/ul (4.20-5.40); RED CELL DISTRIBUTION WIDTH 18.9 % (11.5-14.5)
[2017-04-28 12:55] LABS: WHITE BLOOD COUNT 13.4 10^3/ul (4.8-10.8)
[2017-04-28] MEDS: HEPARIN (100 UNITS/ML) 5 ML SYG CATHETER (17:24)
== END 2017-04-28 18:22 | disposition home or self-care (01) | DRG 871 ==
LOC: MS2 04-22 10:20 → E/R 07:54 → MS2 11:43
PROC: 30233N1 Transfusion of Nonautologous Red Blood Cells into Peripheral Vein, Percutaneous Approach (ICD-10-PCS; principal; 2017-04-20)
DX: A41.9 Sepsis, unspecified organism (principal); D57.00 Hb-SS disease with crisis, unspecified; N12 Tubulo-interstitial nephritis, not specified as acute or chronic; B37.49 Other urogenital candidiasis; D63.8 Anemia in other chronic diseases classified elsewhere; Z86.711 Personal history of pulmonary embolism
CPT/HCPCS: 36415; 36430; 76775; 80048; 80053; 80306; 81001; 82040; 83605; 84145; 84703; 85025; 85045; 85610; 85730; 86850; 86900; 86901; 86920; 87040; 87081; 87086; 87880; 96365; 96366; 96375; 96376; 99285-25

== ENCOUNTER 2017-05-07 03:44 | Inpatient (IN) | payer OTHER ==
[2017-05-07] MEDS: morphine 4 MG/ML VIAL IV (05:15)
[2017-05-07] MEDS: DIPHENHYDRAMINE 50 MG INJ IV ×5 (05:16→22:07)
[2017-05-07] MEDS: ONDANSETRON 4 MG INJ IV (05:16)
[2017-05-07] MEDS ORDERED: ACETAMINOPHEN 325 MG TAB PO ×2 (06:30→13:30)
[2017-05-07] MEDS ORDERED: ONDANSETRON 4 MG INJ IV (06:30)
[2017-05-07 06:37] LABS: ADD UMIC YES; UR ASCORBIC ACID NEGATIVE (NEGATIVE); UR BILIRUBIN (Dip) NEGATIVE (NEGATIVE); UR BLOOD (Dip) NEGATIVE (NEGATIVE); UR CLARITY CLEAR (CLEAR); UR COLOR YELLOW (YELLOW); UR GLUCOSE (Dip) NEGATIVE (NEGATIVE); UR KETONES (Dip) NEGATIVE (NEGATIVE); UR LEUKOCYTE ESTERASE (Dip) 1+ Leu/ul (NEGATIVE); UR NITRITE (Dip) NEGATIVE (NEGATIVE); UR RBC 1 /HPF (0-5); UR TOTAL PROTEIN (Dip) NEGATIVE (NEGATIVE); UR UROBILINOGEN (Dip) NEGATIVE (NEGATIVE); UR WBC 6 /HPF (0-5)
[2017-05-07] MEDS: morphine 10 MG INJ IV ×4 (09:34→22:07)
[2017-05-07 10:14] LABS: ABNORMAL IP MESSAGE 1; HEMATOCRIT 25.3 % (37.0-47.0); HEMOGLOBIN 8.7 g/dl (12.0-16.0); MEAN CORPUSCULAR HEMOGLOBIN 29.2 pg (29.0-33.0); MEAN CORPUSCULAR HGB CONC 34.4 g/dl (32.0-37.0); MEAN CORPUSCULAR VOLUME 84.9 fl (82.0-101.0); MEAN PLATELET VOLUME 10.4 fl (7.4-10.4); PLATELET COUNT 329 10^3/UL (140-415); RED BLOOD COUNT 2.98 10^6/ul (4.20-5.40); RED CELL DISTRIBUTION WIDTH 19.1 % (11.5-14.5)
[2017-05-07 10:14] LABS: WHITE BLOOD COUNT 14.5 10^3/ul (4.8-10.8)
[2017-05-07 10:17] LABS: ADD MAN DIFF? YES; POSITIVE DIFF @See below
[2017-05-07 10:32] LABS: ANION GAP 17 (8-16); BLOOD UREA NITROGEN 13 mg/dl (7-20); CALCIUM 9.1 mg/dl (8.4-10.2); CARBON DIOXIDE 27 mmol/L (21-31); CHLORIDE 104 mmol/L (97-110); CREATININE 0.71 mg/dl (0.44-1.00); GLUCOSE 85 mg/dl (70-220); POTASSIUM 4.7 mmol/L (3.5-5.1); SODIUM 143 mmol/L (135-144)
[2017-05-07 11:38] LABS: SICKLE CELL SCREEN POSITIVE (NEGATIVE)
[2017-05-07 12:47] LABS: ANISOCYTOSIS 1+ (0-0); BASOPHIL #M 0.1 10^3/ul (0.0-0.0); BASOPHILS % (M) 1 % (0-2); EOSINOPHILS % (M) 3 % (0-7); ERYTHROBLAST% (NRBC) (M) 1 % (0-0); GIANT THROMBO% (M) 2 % (0-0); HYPOCHROMASIA 1+ (0-0); LYMPHOCYTES % (M) 42 % (15-51); MONOCYTE #M 1.1 10^3/ul (0.3-0.9); MONOCYTES % (M) 8 % (0-11); PLATELET ESTIMATE NORMAL; POIKILOCYTOSIS 1+ (0-0); POLYCHROMASIA 1+ (0-0); SEGMENTED NEUTROPHILS (M) % 46 % (39-77); SICKLE CELL 1+ (0-0); SMUDGE%M 7 % (0-0)
[2017-05-07] MEDS ORDERED: ALBUTEROL HFA 8 GM INHALER INH (13:00)
[2017-05-07] MEDS: SOD CHLORIDE 0.9% 1,000 ML IV ×2 (13:29→22:41)
[2017-05-07] MEDS ORDERED: OXYCODONE/ACETAMINOPHEN (5/325) TAB PO (13:30)
[2017-05-07] MEDS: HYDROXYUREA 500 MG CAP PO (21:08)
[2017-05-07] MEDS: FAMOTIDINE 20 MG TAB PO (21:08)
[2017-05-08] MEDS: ZOLPIDEM 5 MG TAB PO (01:19)
[2017-05-08] MEDS: DIPHENHYDRAMINE 50 MG INJ IV ×6 (01:46→23:28)
[2017-05-08] MEDS: morphine 10 MG INJ IV ×6 (01:49→23:28)
[2017-05-08] MEDS: SOD CHLORIDE 0.9% 1,000 ML IV ×3 (05:02→21:18)
[2017-05-08 06:28] LABS: ALANINE AMINOTRANSFERASE 117 IU/L (13-69); ALKALINE PHOSPHATASE 116 IU/L (42-121); ANION GAP 18 (8-16); ASPARTATE AMINO TRANSFERASE 104 IU/L (15-46); BLOOD UREA NITROGEN 14 mg/dl (7-20); CALCIUM 8.8 mg/dl (8.4-10.2); CARBON DIOXIDE 24 mmol/L (21-31); CHLORIDE 104 mmol/L (97-110); CREATININE 0.71 mg/dl (0.44-1.00); GLUCOSE 96 mg/dl (70-220); POTASSIUM 4.8 mmol/L (3.5-5.1); SODIUM 141 mmol/L (135-144)
[2017-05-08 07:43] LABS: ADD MAN DIFF? NO
[2017-05-08 07:46] LABS: WHITE BLOOD COUNT 13.1 10^3/ul (4.8-10.8)
[2017-05-08 07:46] LABS: BASOPHIL # 0.1 10^3/ul (0.0-0.1); BASOPHILS % 0.8 % (0.0-2.0); EOSINOPHILS # 0.6 10^3/ul (0.0-0.5); EOSINOPHILS % 4.7 % (0.0-7.0); HEMATOCRIT 22.5 % (37.0-47.0); HEMOGLOBIN 7.7 g/dl (12.0-16.0); LYMPHOCYTES # 4.4 10^3/ul (0.8-2.9); LYMPHOCYTES % 33.3 % (15.0-51.0); MEAN CORPUSCULAR HEMOGLOBIN 29.6 pg (29.0-33.0); MEAN CORPUSCULAR HGB CONC 34.2 g/dl (32.0-37.0); MEAN CORPUSCULAR VOLUME 86.5 fl (82.0-101.0); MEAN PLATELET VOLUME 10.6 fl (7.4-10.4); MONOCYTE # 1.3 10^3/ul (0.3-0.9); MONOCYTES % 9.6 % (0.0-11.0); NEUTROPHIL # 6.6 10^3/ul (1.6-7.5); NEUTROPHILS % 50.5 % (39.0-77.0); NUCLEATED RED BLOOD CELLS # 0.1 10^3/ul (0.0-0.0); NUCLEATED RED BLOOD CELLS% 1.1 /100WBC (0.0-0.0); PLATELET COUNT 262 10^3/UL (140-415); RED CELL DISTRIBUTION WIDTH 18.5 % (11.5-14.5)
[2017-05-08] MEDS: FAMOTIDINE 20 MG TAB PO ×2 (08:59→21:18)
[2017-05-08] MEDS: HYDROXYUREA 500 MG CAP PO ×2 (09:10→21:00)
[2017-05-08] MEDS: FOLIC ACID 1 MG TAB PO (10:59)
[2017-05-08] MEDS: POLYETHYLENE GLYCOL 17 GM PACKET PO (11:00)
[2017-05-09] MEDS: DIPHENHYDRAMINE 50 MG INJ IV ×6 (03:28→20:51)
[2017-05-09] MEDS: ZOLPIDEM 5 MG TAB PO (03:29)
[2017-05-09] MEDS: morphine 10 MG INJ IV ×6 (03:29→20:51)
[2017-05-09] MEDS: SOD CHLORIDE 0.9% 1,000 ML IV ×3 (05:02→20:59)
[2017-05-09] MEDS: morphine 4 MG/ML VIAL IV (05:24)
[2017-05-09] MEDS: FAMOTIDINE 20 MG TAB PO ×2 (08:00→20:51)
[2017-05-09] MEDS: HYDROXYUREA 500 MG CAP PO ×2 (08:01→20:53)
[2017-05-09 09:42] LABS: ADD MAN DIFF? NO
[2017-05-09 09:47] LABS: BASOPHIL # 0.1 10^3/ul (0.0-0.1); BASOPHILS % 0.8 % (0.0-2.0); EOSINOPHILS # 0.4 10^3/ul (0.0-0.5); EOSINOPHILS % 4.2 % (0.0-7.0); HEMATOCRIT 21.8 % (37.0-47.0); HEMOGLOBIN 7.4 g/dl (12.0-16.0); LYMPHOCYTES # 3.6 10^3/ul (0.8-2.9); LYMPHOCYTES % 35.3 % (15.0-51.0); MEAN CORPUSCULAR HEMOGLOBIN 29.4 pg (29.0-33.0); MEAN CORPUSCULAR HGB CONC 33.9 g/dl (32.0-37.0); MEAN CORPUSCULAR VOLUME 86.5 fl (82.0-101.0); MEAN PLATELET VOLUME 10.5 fl (7.4-10.4); MONOCYTE # 0.8 10^3/ul (0.3-0.9); MONOCYTES % 7.8 % (0.0-11.0); NEUTROPHIL # 5.2 10^3/ul (1.6-7.5); NUCLEATED RED BLOOD CELLS # 0.1 10^3/ul (0.0-0.0); NUCLEATED RED BLOOD CELLS% 1.3 /100WBC (0.0-0.0); PLATELET COUNT 253 10^3/UL (140-415); RED BLOOD COUNT 2.52 10^6/ul (4.20-5.40); RED CELL DISTRIBUTION WIDTH 18.3 % (11.5-14.5)
[2017-05-09 09:47] LABS: WHITE BLOOD COUNT 10.3 10^3/ul (4.8-10.8)
[2017-05-09 10:09] LABS: ANION GAP 16 (8-16); BLOOD UREA NITROGEN 15 mg/dl (7-20); CALCIUM 8.3 mg/dl (8.4-10.2); CARBON DIOXIDE 28 mmol/L (21-31); CHLORIDE 104 mmol/L (97-110); CREATININE 0.78 mg/dl (0.44-1.00); GLUCOSE 93 mg/dl (70-220); POTASSIUM 4.6 mmol/L (3.5-5.1); SODIUM 143 mmol/L (135-144)
[2017-05-09] MEDS: POLYETHYLENE GLYCOL 17 GM PACKET PO (12:57)
[2017-05-09] MEDS: FOLIC ACID 1 MG TAB PO (15:09)
[2017-05-09 20:24] LABS: IMMEDIATE SPIN CROSSMATCH 1 1
[2017-05-10] MEDS: DIPHENHYDRAMINE 50 MG INJ IV ×6 (00:52→22:04)
[2017-05-10] MEDS: morphine 10 MG INJ IV ×6 (00:53→22:04)
[2017-05-10] MEDS: ZOLPIDEM 5 MG TAB PO (00:54)
[2017-05-10] MEDS: SOD CHLORIDE 0.9% 1,000 ML IV ×4 (04:49→21:02)
[2017-05-10] MEDS: FAMOTIDINE 20 MG TAB PO ×2 (10:11→21:20)
[2017-05-10] MEDS: FOLIC ACID 1 MG TAB PO (10:11)
[2017-05-10] MEDS: POLYETHYLENE GLYCOL 17 GM PACKET PO (10:13)
[2017-05-10 10:51] LABS: ADD MAN DIFF? NO
[2017-05-10 11:01] LABS: BASOPHIL # 0.1 10^3/ul (0.0-0.1); BASOPHILS % 1.2 % (0.0-2.0); EOSINOPHILS # 0.6 10^3/ul (0.0-0.5); EOSINOPHILS % 6.5 % (0.0-7.0); HEMATOCRIT 25.4 % (37.0-47.0); HEMOGLOBIN 8.7 g/dl (12.0-16.0); LYMPHOCYTES # 3.9 10^3/ul (0.8-2.9); LYMPHOCYTES % 40.7 % (15.0-51.0); MEAN CORPUSCULAR HEMOGLOBIN 29.3 pg (29.0-33.0); MEAN CORPUSCULAR HGB CONC 34.3 g/dl (32.0-37.0); MEAN CORPUSCULAR VOLUME 85.5 fl (82.0-101.0); MEAN PLATELET VOLUME 10.5 fl (7.4-10.4); MONOCYTE # 1.3 10^3/ul (0.3-0.9); MONOCYTES % 13.3 % (0.0-11.0); NEUTROPHIL # 3.6 10^3/ul (1.6-7.5); NEUTROPHILS % 37.5 % (39.0-77.0); NUCLEATED RED BLOOD CELLS # 0.2 10^3/ul (0.0-0.0); NUCLEATED RED BLOOD CELLS% 1.7 /100WBC (0.0-0.0); PLATELET COUNT 277 10^3/UL (140-415); RED BLOOD COUNT 2.97 10^6/ul (4.20-5.40); RED CELL DISTRIBUTION WIDTH 18.2 % (11.5-14.5)
[2017-05-10 11:01] LABS: WHITE BLOOD COUNT 9.6 10^3/ul (4.8-10.8)
[2017-05-10 11:10] LABS: ANION GAP 15 (8-16); BLOOD UREA NITROGEN 9 mg/dl (7-20); CALCIUM 8.6 mg/dl (8.4-10.2); CARBON DIOXIDE 26 mmol/L (21-31); CHLORIDE 107 mmol/L (97-110); CREATININE 0.65 mg/dl (0.44-1.00); GLUCOSE 87 mg/dl (70-220); POTASSIUM 4.6 mmol/L (3.5-5.1); SODIUM 143 mmol/L (135-144)
[2017-05-10] MEDS: HYDROXYUREA 500 MG CAP PO ×2 (13:53→21:20)
[2017-05-10] MEDS: ONDANSETRON 4 MG INJ IV (18:17)
[2017-05-11] MEDS: DIPHENHYDRAMINE 50 MG INJ IV ×6 (02:21→22:38)
[2017-05-11] MEDS: morphine 10 MG INJ IV ×6 (02:22→22:39)
[2017-05-11] MEDS: SOD CHLORIDE 0.9% 1,000 ML IV ×4 (02:31→20:56)
[2017-05-11 05:52] LABS: ADD MAN DIFF? NO
[2017-05-11 06:04] LABS: BASOPHIL # 0.1 10^3/ul (0.0-0.1); EOSINOPHILS # 0.8 10^3/ul (0.0-0.5); EOSINOPHILS % 7.2 % (0.0-7.0); HEMATOCRIT 25.7 % (37.0-47.0); HEMOGLOBIN 8.9 g/dl (12.0-16.0); LYMPHOCYTES # 4.8 10^3/ul (0.8-2.9); LYMPHOCYTES % 42.8 % (15.0-51.0); MEAN CORPUSCULAR HEMOGLOBIN 30.2 pg (29.0-33.0); MEAN CORPUSCULAR HGB CONC 34.6 g/dl (32.0-37.0); MEAN CORPUSCULAR VOLUME 87.1 fl (82.0-101.0); MEAN PLATELET VOLUME 10.6 fl (7.4-10.4); MONOCYTE # 1.4 10^3/ul (0.3-0.9); MONOCYTES % 12.1 % (0.0-11.0); NEUTROPHIL # 4.1 10^3/ul (1.6-7.5); NEUTROPHILS % 36.1 % (39.0-77.0); NUCLEATED RED BLOOD CELLS # 0.2 10^3/ul (0.0-0.0); NUCLEATED RED BLOOD CELLS% 1.3 /100WBC (0.0-0.0); PLATELET COUNT 308 10^3/UL (140-415); RED BLOOD COUNT 2.95 10^6/ul (4.20-5.40); RED CELL DISTRIBUTION WIDTH 18.8 % (11.5-14.5)
[2017-05-11 06:04] LABS: WHITE BLOOD COUNT 11.3 10^3/ul (4.8-10.8)
[2017-05-11 06:16] LABS: ANION GAP 18 (8-16); BLOOD UREA NITROGEN 8 mg/dl (7-20); CALCIUM 8.6 mg/dl (8.4-10.2); CARBON DIOXIDE 26 mmol/L (21-31); CHLORIDE 103 mmol/L (97-110); GLUCOSE 118 mg/dl (70-220); POTASSIUM 4.4 mmol/L (3.5-5.1); SODIUM 143 mmol/L (135-144)
[2017-05-11 06:17] LABS: POSITIVE DIFF @See below
[2017-05-11] MEDS: APIXABAN 5 MG TABLET PO ×2 (09:59→20:54)
[2017-05-11] MEDS: DOCUSATE SODIUM 100 MG CAP PO (10:00)
[2017-05-11] MEDS: FOLIC ACID 1 MG TAB PO (10:00)
[2017-05-11] MEDS: FAMOTIDINE 20 MG TAB PO ×2 (10:00→20:54)
[2017-05-11] MEDS: POLYETHYLENE GLYCOL 17 GM PACKET PO (10:00)
[2017-05-11] MEDS: HYDROXYUREA 500 MG CAP PO ×2 (10:31→20:55)
[2017-05-11] MEDS: BISACODYL (EC) 5 MG TAB PO (11:18)
[2017-05-12] MEDS: DIPHENHYDRAMINE 50 MG INJ IV ×6 (02:40→22:33)
[2017-05-12] MEDS: morphine 10 MG INJ IV ×6 (02:40→22:33)
[2017-05-12] MEDS: SOD CHLORIDE 0.9% 1,000 ML IV ×4 (06:32→21:02)
[2017-05-12] MEDS: FOLIC ACID 1 MG TAB PO (09:13)
[2017-05-12] MEDS: FAMOTIDINE 20 MG TAB PO ×2 (09:13→21:45)
[2017-05-12] MEDS: BISACODYL (EC) 5 MG TAB PO (09:13)
[2017-05-12] MEDS: APIXABAN 5 MG TABLET PO ×2 (09:13→21:45)
[2017-05-12] MEDS: POLYETHYLENE GLYCOL 17 GM PACKET PO (09:14)
[2017-05-12] MEDS: HYDROXYUREA 500 MG CAP PO ×2 (09:16→21:49)
[2017-05-12] MEDS: ONDANSETRON 4 MG INJ IV (14:42)
[2017-05-13] MEDS: morphine 10 MG INJ IV ×5 (02:42→18:36)
[2017-05-13] MEDS: DIPHENHYDRAMINE 50 MG INJ IV ×5 (02:43→18:35)
[2017-05-13] MEDS: SOD CHLORIDE 0.9% 1,000 ML IV ×3 (02:45→22:38)
[2017-05-13] MEDS: POLYETHYLENE GLYCOL 17 GM PACKET PO (10:42)
[2017-05-13] MEDS: BISACODYL (EC) 5 MG TAB PO (10:42)
[2017-05-13] MEDS: APIXABAN 5 MG TABLET PO ×2 (10:42→22:35)
[2017-05-13] MEDS: FOLIC ACID 1 MG TAB PO (10:43)
[2017-05-13] MEDS: FAMOTIDINE 20 MG TAB PO ×2 (10:43→22:35)
[2017-05-13] MEDS: HYDROXYUREA 500 MG CAP PO ×2 (10:49→22:38)
[2017-05-13 14:58] LABS: ADD MAN DIFF? NO
[2017-05-13 14:59] LABS: BASOPHIL # 0.1 10^3/ul (0.0-0.1); BASOPHILS % 0.8 % (0.0-2.0); EOSINOPHILS # 0.6 10^3/ul (0.0-0.5); EOSINOPHILS % 4.9 % (0.0-7.0); HEMATOCRIT 24.6 % (37.0-47.0); HEMOGLOBIN 8.5 g/dl (12.0-16.0); LYMPHOCYTES # 3.3 10^3/ul (0.8-2.9); LYMPHOCYTES % 26.4 % (15.0-51.0); MEAN CORPUSCULAR HEMOGLOBIN 29.8 pg (29.0-33.0); MEAN CORPUSCULAR HGB CONC 34.6 g/dl (32.0-37.0); MEAN CORPUSCULAR VOLUME 86.3 fl (82.0-101.0); MONOCYTE # 1.3 10^3/ul (0.3-0.9); MONOCYTES % 10.6 % (0.0-11.0); NEUTROPHIL # 7.1 10^3/ul (1.6-7.5); NEUTROPHILS % 56.5 % (39.0-77.0); NUCLEATED RED BLOOD CELLS # 0.2 10^3/ul (0.0-0.0); NUCLEATED RED BLOOD CELLS% 1.4 /100WBC (0.0-0.0); PLATELET COUNT 240 10^3/UL (140-415); RED BLOOD COUNT 2.85 10^6/ul (4.20-5.40); RED CELL DISTRIBUTION WIDTH 18.6 % (11.5-14.5)
[2017-05-13 14:59] LABS: WHITE BLOOD COUNT 12.5 10^3/ul (4.8-10.8)
[2017-05-13 15:33] LABS: ANION GAP 16 (8-16); BLOOD UREA NITROGEN 10 mg/dl (7-20); CALCIUM 8.6 mg/dl (8.4-10.2); CARBON DIOXIDE 28 mmol/L (21-31); CHLORIDE 104 mmol/L (97-110); CREATININE 0.68 mg/dl (0.44-1.00); GLUCOSE 81 mg/dl (70-220); SODIUM 143 mmol/L (135-144)
[2017-05-13] MEDS: LACTULOSE 30ML CUP PO (18:35)
[2017-05-13 18:58] LABS: ADD UMIC NO; UR ASCORBIC ACID NEGATIVE (NEGATIVE); UR BILIRUBIN (Dip) NEGATIVE (NEGATIVE); UR BLOOD (Dip) NEGATIVE (NEGATIVE); UR CLARITY CLEAR (CLEAR); UR COLOR YELLOW (YELLOW); UR GLUCOSE (Dip) NEGATIVE (NEGATIVE); UR KETONES (Dip) NEGATIVE (NEGATIVE); UR LEUKOCYTE ESTERASE (Dip) NEGATIVE Leu/ul (NEGATIVE); UR NITRITE (Dip) NEGATIVE (NEGATIVE); UR SPECIFIC GRAVITY (Dip) 1.005 (1.003-1.030); UR TOTAL PROTEIN (Dip) NEGATIVE (NEGATIVE); UR UROBILINOGEN (Dip) NEGATIVE (NEGATIVE)
[2017-05-14] MEDS: DIPHENHYDRAMINE 50 MG INJ IV ×6 (00:04→20:04)
[2017-05-14] MEDS: morphine 10 MG INJ IV ×6 (00:04→20:04)
[2017-05-14] MEDS: SOD CHLORIDE 0.9% 1,000 ML IV ×3 (04:13→21:02)
[2017-05-14 06:38] LABS: ADD MAN DIFF? NO
[2017-05-14 06:50] LABS: BASOPHIL # 0.1 10^3/ul (0.0-0.1); BASOPHILS % 1.2 % (0.0-2.0); EOSINOPHILS # 0.7 10^3/ul (0.0-0.5); EOSINOPHILS % 5.9 % (0.0-7.0); HEMATOCRIT 25.2 % (37.0-47.0); HEMOGLOBIN 8.5 g/dl (12.0-16.0); LYMPHOCYTES # 3.7 10^3/ul (0.8-2.9); LYMPHOCYTES % 33.6 % (15.0-51.0); MEAN CORPUSCULAR HEMOGLOBIN 28.8 pg (29.0-33.0); MEAN CORPUSCULAR HGB CONC 33.7 g/dl (32.0-37.0); MEAN CORPUSCULAR VOLUME 85.4 fl (82.0-101.0); MEAN PLATELET VOLUME 10.5 fl (7.4-10.4); MONOCYTE # 1.3 10^3/ul (0.3-0.9); MONOCYTES % 11.9 % (0.0-11.0); NEUTROPHIL # 5.2 10^3/ul (1.6-7.5); NEUTROPHILS % 46.9 % (39.0-77.0); NUCLEATED RED BLOOD CELLS # 0.2 10^3/ul (0.0-0.0); NUCLEATED RED BLOOD CELLS% 1.4 /100WBC (0.0-0.0); PLATELET COUNT 242 10^3/UL (140-415); RED BLOOD COUNT 2.95 10^6/ul (4.20-5.40); RED CELL DISTRIBUTION WIDTH 18.6 % (11.5-14.5)
[2017-05-14 06:50] LABS: WHITE BLOOD COUNT 11.1 10^3/ul (4.8-10.8)
[2017-05-14 07:31] LABS: POTASSIUM 4.6 mmol/L (3.5-5.1)
[2017-05-14 07:32] LABS: BLOOD UREA NITROGEN 9 mg/dl (7-20); CALCIUM 8.7 mg/dl (8.4-10.2); CARBON DIOXIDE 29 mmol/L (21-31); CHLORIDE 102 mmol/L (97-110); CREATININE 0.65 mg/dl (0.44-1.00); GLUCOSE 94 mg/dl (70-220); SODIUM 141 mmol/L (135-144)
[2017-05-14 07:33] LABS: ANION GAP 15 (8-16)
[2017-05-14] MEDS: APIXABAN 5 MG TABLET PO ×2 (08:52→20:03)
[2017-05-14] MEDS: FAMOTIDINE 20 MG TAB PO ×2 (08:53→20:03)
[2017-05-14] MEDS: FOLIC ACID 1 MG TAB PO (08:53)
[2017-05-14] MEDS: HYDROXYUREA 500 MG CAP PO ×2 (08:54→20:11)
[2017-05-14] MEDS: POLYETHYLENE GLYCOL 17 GM PACKET PO (09:00)
[2017-05-14] MEDS: BISACODYL (EC) 5 MG TAB PO (09:00)
[2017-05-15] MEDS: DIPHENHYDRAMINE 50 MG INJ IV ×7 (00:22→23:56)
[2017-05-15] MEDS: morphine 10 MG INJ IV ×7 (00:22→23:57)
[2017-05-15] MEDS: SOD CHLORIDE 0.9% 1,000 ML IV ×4 (04:03→20:30)
[2017-05-15 07:33] LABS: ADD MAN DIFF? NO
[2017-05-15 07:46] LABS: BASOPHIL # 0.1 10^3/ul (0.0-0.1); BASOPHILS % 0.9 % (0.0-2.0); EOSINOPHILS # 0.8 10^3/ul (0.0-0.5); EOSINOPHILS % 6.8 % (0.0-7.0); HEMATOCRIT 26.2 % (37.0-47.0); HEMOGLOBIN 8.9 g/dl (12.0-16.0); LYMPHOCYTES # 4.5 10^3/ul (0.8-2.9); LYMPHOCYTES % 38.7 % (15.0-51.0); MEAN CORPUSCULAR HEMOGLOBIN 29.6 pg (29.0-33.0); MEAN PLATELET VOLUME 10.8 fl (7.4-10.4); MONOCYTE # 1.4 10^3/ul (0.3-0.9); MONOCYTES % 12.4 % (0.0-11.0); NEUTROPHIL # 4.7 10^3/ul (1.6-7.5); NEUTROPHILS % 40.4 % (39.0-77.0); NUCLEATED RED BLOOD CELLS # 0.1 10^3/ul (0.0-0.0); PLATELET COUNT 249 10^3/UL (140-415); RED BLOOD COUNT 3.01 10^6/ul (4.20-5.40); RED CELL DISTRIBUTION WIDTH 18.6 % (11.5-14.5)
[2017-05-15 07:46] LABS: WHITE BLOOD COUNT 11.6 10^3/ul (4.8-10.8)
[2017-05-15 08:04] LABS: ANION GAP 18 (8-16); BLOOD UREA NITROGEN 11 mg/dl (7-20); CALCIUM 8.9 mg/dl (8.4-10.2); CARBON DIOXIDE 26 mmol/L (21-31); CHLORIDE 102 mmol/L (97-110); CREATININE 0.71 mg/dl (0.44-1.00); GLUCOSE 113 mg/dl (70-220); POTASSIUM 4.3 mmol/L (3.5-5.1); SODIUM 142 mmol/L (135-144)
[2017-05-15] MEDS: POLYETHYLENE GLYCOL 17 GM PACKET PO (08:07)
[2017-05-15] MEDS: FAMOTIDINE 20 MG TAB PO ×2 (08:08→20:01)
[2017-05-15] MEDS: BISACODYL (EC) 5 MG TAB PO (08:08)
[2017-05-15] MEDS: APIXABAN 5 MG TABLET PO ×2 (08:08→20:01)
[2017-05-15] MEDS: FOLIC ACID 1 MG TAB PO (08:08)
[2017-05-15] MEDS: HYDROXYUREA 500 MG CAP PO ×2 (08:09→20:16)
[2017-05-15] MEDS: MICONAZOLE 100 MG VAG SUPP VAG (20:02)
[2017-05-16] MEDS: SOD CHLORIDE 0.9% 1,000 ML IV ×2 (04:02→19:59)
[2017-05-16] MEDS: DIPHENHYDRAMINE 50 MG INJ IV ×6 (04:02→23:51)
[2017-05-16] MEDS: morphine 10 MG INJ IV ×6 (04:02→23:50)
[2017-05-16 06:01] LABS: ADD MAN DIFF? NO
[2017-05-16 06:06] LABS: BASOPHIL # 0.1 10^3/ul (0.0-0.1); BASOPHILS % 0.9 % (0.0-2.0); EOSINOPHILS # 0.7 10^3/ul (0.0-0.5); HEMATOCRIT 27.4 % (37.0-47.0); HEMOGLOBIN 9.3 g/dl (12.0-16.0); LYMPHOCYTES # 4.5 10^3/ul (0.8-2.9); LYMPHOCYTES % 37.7 % (15.0-51.0); MEAN CORPUSCULAR HEMOGLOBIN 29.3 pg (29.0-33.0); MEAN CORPUSCULAR HGB CONC 33.9 g/dl (32.0-37.0); MEAN CORPUSCULAR VOLUME 86.4 fl (82.0-101.0); MEAN PLATELET VOLUME 10.5 fl (7.4-10.4); MONOCYTE # 1.5 10^3/ul (0.3-0.9); MONOCYTES % 12.4 % (0.0-11.0); NEUTROPHIL # 5.1 10^3/ul (1.6-7.5); NEUTROPHILS % 42.1 % (39.0-77.0); NUCLEATED RED BLOOD CELLS # 0.1 10^3/ul (0.0-0.0); NUCLEATED RED BLOOD CELLS% 0.9 /100WBC (0.0-0.0); PLATELET COUNT 255 10^3/UL (140-415); RED BLOOD COUNT 3.17 10^6/ul (4.20-5.40); RED CELL DISTRIBUTION WIDTH 18.5 % (11.5-14.5)
[2017-05-16 06:27] LABS: ANION GAP 20 (8-16); BLOOD UREA NITROGEN 12 mg/dl (7-20); CALCIUM 9.1 mg/dl (8.4-10.2); CARBON DIOXIDE 26 mmol/L (21-31); CHLORIDE 102 mmol/L (97-110); GLUCOSE 95 mg/dl (70-220); POTASSIUM 4.6 mmol/L (3.5-5.1); SODIUM 143 mmol/L (135-144)
[2017-05-16] MEDS: APIXABAN 5 MG TABLET PO ×2 (11:03→21:51)
[2017-05-16] MEDS: BISACODYL (EC) 5 MG TAB PO (11:03)
[2017-05-16] MEDS: FAMOTIDINE 20 MG TAB PO ×2 (11:04→21:52)
[2017-05-16] MEDS: HYDROXYUREA 500 MG CAP PO ×2 (11:04→21:58)
[2017-05-16] MEDS: POLYETHYLENE GLYCOL 17 GM PACKET PO (11:05)
[2017-05-16] MEDS: FOLIC ACID 1 MG TAB PO (11:05)
[2017-05-16] MEDS: MICONAZOLE 100 MG VAG SUPP VAG (21:00)
[2017-05-16] MEDS: CYCLOBENZAPRINE 10 MG TAB PO (21:52)
[2017-05-16] MEDS: ZOLPIDEM 5 MG TAB PO (23:49)
[2017-05-17] MEDS: ZOLPIDEM 5 MG TAB PO (00:47)
[2017-05-17] MEDS: morphine 10 MG INJ IV ×5 (03:49→20:26)
[2017-05-17] MEDS: DIPHENHYDRAMINE 50 MG INJ IV ×5 (03:50→20:26)
[2017-05-17] MEDS: SOD CHLORIDE 0.9% 1,000 ML IV ×3 (03:55→21:02)
[2017-05-17] MEDS: APIXABAN 5 MG TABLET PO ×2 (10:46→22:36)
[2017-05-17] MEDS: FAMOTIDINE 20 MG TAB PO ×2 (10:46→22:36)
[2017-05-17] MEDS: CYCLOBENZAPRINE 10 MG TAB PO ×2 (10:46→22:36)
[2017-05-17] MEDS: FOLIC ACID 1 MG TAB PO (10:47)
[2017-05-17] MEDS: BISACODYL (EC) 5 MG TAB PO (10:47)
[2017-05-17] MEDS: POLYETHYLENE GLYCOL 17 GM PACKET PO (10:48)
[2017-05-17] MEDS: HYDROXYUREA 500 MG CAP PO ×2 (10:52→22:43)
[2017-05-17 11:38] LABS: ADD MAN DIFF? NO
[2017-05-17 11:57] LABS: WHITE BLOOD COUNT 13.3 10^3/ul (4.8-10.8)
[2017-05-17 11:57] LABS: ABNORMAL IP MESSAGE 1; BASOPHIL # 0.1 10^3/ul (0.0-0.1); EOSINOPHILS % 7.6 % (0.0-7.0); HEMATOCRIT 24.3 % (37.0-47.0); HEMOGLOBIN 8.4 g/dl (12.0-16.0); LYMPHOCYTES # 3.4 10^3/ul (0.8-2.9); LYMPHOCYTES % 25.2 % (15.0-51.0); MEAN CORPUSCULAR HEMOGLOBIN 29.6 pg (29.0-33.0); MEAN CORPUSCULAR HGB CONC 34.6 g/dl (32.0-37.0); MEAN CORPUSCULAR VOLUME 85.6 fl (82.0-101.0); MEAN PLATELET VOLUME 10.7 fl (7.4-10.4); MONOCYTE # 1.4 10^3/ul (0.3-0.9); MONOCYTES % 10.5 % (0.0-11.0); NEUTROPHIL # 7.3 10^3/ul (1.6-7.5); NUCLEATED RED BLOOD CELLS # 0.1 10^3/ul (0.0-0.0); PLATELET COUNT 235 10^3/UL (140-415); RED BLOOD COUNT 2.84 10^6/ul (4.20-5.40); RED CELL DISTRIBUTION WIDTH 18.5 % (11.5-14.5)
[2017-05-17 12:07] LABS: POSITIVE DIFF @See below
[2017-05-17 12:10] LABS: ANION GAP 17 (8-16); BLOOD UREA NITROGEN 11 mg/dl (7-20); CALCIUM 8.9 mg/dl (8.4-10.2); CARBON DIOXIDE 27 mmol/L (21-31); CHLORIDE 102 mmol/L (97-110); CREATININE 0.64 mg/dl (0.44-1.00); GLUCOSE 91 mg/dl (70-220); POTASSIUM 4.6 mmol/L (3.5-5.1); SODIUM 141 mmol/L (135-144)
[2017-05-17] MEDS: MICONAZOLE 100 MG VAG SUPP VAG ×2 (21:00→21:47)
[2017-05-17] MEDS: PHENAZOPYRIDINE 100 MG TAB PO (22:36)
[2017-05-18] MEDS: DIPHENHYDRAMINE 50 MG INJ IV ×6 (00:10→22:59)
[2017-05-18] MEDS: morphine 10 MG INJ IV ×7 (00:13→22:59)
[2017-05-18] MEDS: ZOLPIDEM 5 MG TAB PO (01:27)
[2017-05-18] MEDS: SOD CHLORIDE 0.9% 1,000 ML IV ×3 (05:02→23:02)
[2017-05-18] MEDS: APIXABAN 5 MG TABLET PO ×2 (09:57→21:44)
[2017-05-18] MEDS: PHENAZOPYRIDINE 100 MG TAB PO ×3 (09:57→21:44)
[2017-05-18] MEDS: FOLIC ACID 1 MG TAB PO (09:57)
[2017-05-18] MEDS: BISACODYL (EC) 5 MG TAB PO (09:57)
[2017-05-18] MEDS: CYCLOBENZAPRINE 10 MG TAB PO ×2 (09:58→21:44)
[2017-05-18] MEDS: FAMOTIDINE 20 MG TAB PO ×2 (09:58→21:44)
[2017-05-18] MEDS: POLYETHYLENE GLYCOL 17 GM PACKET PO (09:58)
[2017-05-18] MEDS: HYDROXYUREA 500 MG CAP PO ×2 (10:00→21:44)
[2017-05-18 12:35] LABS: ADD MAN DIFF? NO
[2017-05-18 12:40] LABS: WHITE BLOOD COUNT 12.2 10^3/ul (4.8-10.8)
[2017-05-18 12:40] LABS: ABNORMAL IP MESSAGE 1; BASOPHIL # 0.1 10^3/ul (0.0-0.1); BASOPHILS % 1.1 % (0.0-2.0); EOSINOPHILS # 0.6 10^3/ul (0.0-0.5); EOSINOPHILS % 4.6 % (0.0-7.0); HEMATOCRIT 24.7 % (37.0-47.0); HEMOGLOBIN 8.5 g/dl (12.0-16.0); LYMPHOCYTES # 3.1 10^3/ul (0.8-2.9); LYMPHOCYTES % 25.4 % (15.0-51.0); MEAN CORPUSCULAR HEMOGLOBIN 29.5 pg (29.0-33.0); MEAN CORPUSCULAR HGB CONC 34.4 g/dl (32.0-37.0); MEAN CORPUSCULAR VOLUME 85.8 fl (82.0-101.0); MEAN PLATELET VOLUME 10.4 fl (7.4-10.4); MONOCYTE # 1.5 10^3/ul (0.3-0.9); MONOCYTES % 12.6 % (0.0-11.0); NEUTROPHIL # 6.8 10^3/ul (1.6-7.5); NEUTROPHILS % 55.6 % (39.0-77.0); NUCLEATED RED BLOOD CELLS # 0.1 10^3/ul (0.0-0.0); NUCLEATED RED BLOOD CELLS% 1.1 /100WBC (0.0-0.0); PLATELET COUNT 253 10^3/UL (140-415); RED BLOOD COUNT 2.88 10^6/ul (4.20-5.40); RED CELL DISTRIBUTION WIDTH 18.5 % (11.5-14.5)
[2017-05-18 12:43] LABS: POSITIVE DIFF @See below
[2017-05-18 12:57] LABS: ANION GAP 15 (8-16); BLOOD UREA NITROGEN 10 mg/dl (7-20); CALCIUM 8.8 mg/dl (8.4-10.2); CARBON DIOXIDE 27 mmol/L (21-31); CHLORIDE 104 mmol/L (97-110); CREATININE 0.65 mg/dl (0.44-1.00); GLUCOSE 96 mg/dl (70-220); POTASSIUM 4.6 mmol/L (3.5-5.1); SODIUM 141 mmol/L (135-144)
[2017-05-18] MEDS: MICONAZOLE 100 MG VAG SUPP VAG (21:48)
[2017-05-19] MEDS: ONDANSETRON 4 MG INJ IV (00:16)
[2017-05-19] MEDS: morphine 10 MG INJ IV ×6 (02:59→22:16)
[2017-05-19] MEDS: DIPHENHYDRAMINE 50 MG INJ IV ×6 (02:59→22:16)
[2017-05-19] MEDS: SOD CHLORIDE 0.9% 1,000 ML IV ×2 (09:09→19:09)
[2017-05-19] MEDS: BISACODYL (EC) 5 MG TAB PO (10:36)
[2017-05-19] MEDS: FAMOTIDINE 20 MG TAB PO ×2 (10:38→21:43)
[2017-05-19] MEDS: APIXABAN 5 MG TABLET PO ×2 (10:38→21:43)
[2017-05-19] MEDS: CYCLOBENZAPRINE 10 MG TAB PO ×2 (10:38→21:00)
[2017-05-19] MEDS: FOLIC ACID 1 MG TAB PO (10:38)
[2017-05-19] MEDS: PHENAZOPYRIDINE 100 MG TAB PO ×3 (10:39→21:43)
[2017-05-19] MEDS: HYDROXYUREA 500 MG CAP PO ×2 (10:39→21:50)
[2017-05-19] MEDS: POLYETHYLENE GLYCOL 17 GM PACKET PO (10:40)
[2017-05-19] MEDS: MICONAZOLE 100 MG VAG SUPP VAG (21:44)
[2017-05-20] MEDS: morphine 10 MG INJ IV ×6 (02:16→21:48)
[2017-05-20] MEDS: DIPHENHYDRAMINE 50 MG INJ IV ×6 (02:16→21:48)
[2017-05-20] MEDS: SOD CHLORIDE 0.9% 1,000 ML IV ×3 (02:16→15:06)
[2017-05-20] MEDS: ONDANSETRON 4 MG INJ IV (02:25)
[2017-05-20] MEDS: PHENAZOPYRIDINE 100 MG TAB PO ×3 (09:37→21:47)
[2017-05-20] MEDS: BISACODYL (EC) 5 MG TAB PO (09:38)
[2017-05-20] MEDS: APIXABAN 5 MG TABLET PO ×2 (09:38→21:47)
[2017-05-20] MEDS: FAMOTIDINE 20 MG TAB PO ×2 (09:38→21:47)
[2017-05-20] MEDS: FOLIC ACID 1 MG TAB PO (09:39)
[2017-05-20] MEDS: HYDROXYUREA 500 MG CAP PO ×2 (09:39→21:56)
[2017-05-20] MEDS: POLYETHYLENE GLYCOL 17 GM PACKET PO (09:42)
[2017-05-20] MEDS: CYCLOBENZAPRINE 10 MG TAB PO ×2 (11:18→21:47)
[2017-05-20 12:12] LABS: ADD MAN DIFF? NO
[2017-05-20 12:21] LABS: WHITE BLOOD COUNT 9.9 10^3/ul (4.8-10.8)
[2017-05-20 12:21] LABS: BASOPHIL # 0.1 10^3/ul (0.0-0.1); BASOPHILS % 0.8 % (0.0-2.0); EOSINOPHILS # 0.4 10^3/ul (0.0-0.5); EOSINOPHILS % 4.1 % (0.0-7.0); HEMATOCRIT 20.5 % (37.0-47.0); LYMPHOCYTES # 2.6 10^3/ul (0.8-2.9); LYMPHOCYTES % 26.5 % (15.0-51.0); MEAN CORPUSCULAR HEMOGLOBIN 29.7 pg (29.0-33.0); MEAN CORPUSCULAR HGB CONC 34.1 g/dl (32.0-37.0); MEAN CORPUSCULAR VOLUME 86.9 fl (82.0-101.0); MEAN PLATELET VOLUME 10.2 fl (7.4-10.4); MONOCYTE # 1.2 10^3/ul (0.3-0.9); NEUTROPHIL # 5.5 10^3/ul (1.6-7.5); NEUTROPHILS % 55.3 % (39.0-77.0); NUCLEATED RED BLOOD CELLS # 0.1 10^3/ul (0.0-0.0); NUCLEATED RED BLOOD CELLS% 1.4 /100WBC (0.0-0.0); PLATELET COUNT 202 10^3/UL (140-415); RED BLOOD COUNT 2.36 10^6/ul (4.20-5.40); RED CELL DISTRIBUTION WIDTH 18.5 % (11.5-14.5)
[2017-05-20 12:41] LABS: ANION GAP 13 (8-16); BLOOD UREA NITROGEN 9 mg/dl (7-20); CARBON DIOXIDE 24 mmol/L (21-31); CHLORIDE 110 mmol/L (97-110); CREATININE 0.55 mg/dl (0.44-1.00); GLUCOSE 74 mg/dl (70-220); POTASSIUM 3.8 mmol/L (3.5-5.1); SODIUM 143 mmol/L (135-144)
[2017-05-20] MEDS: ACETAMINOPHEN 325 MG TAB PO (18:09)
[2017-05-20 18:23] LABS: IMMEDIATE SPIN CROSSMATCH 1 1
[2017-05-20] MEDS: MICONAZOLE 100 MG VAG SUPP VAG (21:47)
[2017-05-21] MEDS: SOD CHLORIDE 0.9% 1,000 ML IV ×3 (01:09→21:09)
[2017-05-21] MEDS: morphine 10 MG INJ IV ×6 (02:00→22:03)
[2017-05-21] MEDS: DIPHENHYDRAMINE 50 MG INJ IV ×6 (02:00→22:03)
[2017-05-21] MEDS: FAMOTIDINE 20 MG TAB PO ×2 (09:47→21:00)
[2017-05-21] MEDS: FOLIC ACID 1 MG TAB PO (09:47)
[2017-05-21] MEDS: POLYETHYLENE GLYCOL 17 GM PACKET PO (09:47)
[2017-05-21] MEDS: CYCLOBENZAPRINE 10 MG TAB PO ×2 (09:47→22:05)
[2017-05-21] MEDS: PHENAZOPYRIDINE 100 MG TAB PO ×3 (09:47→21:05)
[2017-05-21] MEDS: APIXABAN 5 MG TABLET PO ×2 (09:48→21:00)
[2017-05-21] MEDS: BISACODYL (EC) 5 MG TAB PO (09:52)
[2017-05-21] MEDS: HYDROXYUREA 500 MG CAP PO ×2 (09:52→21:09)
[2017-05-21] MEDS: MICONAZOLE 100 MG VAG SUPP VAG (21:04)
[2017-05-21] MEDS: HEPARIN (100 UNITS/ML) 5 ML SYG CATHETER (22:08)
== END 2017-05-21 22:20 | disposition home or self-care (01) | DRG 812 ==
LOC: MS2 05-10 03:47 → FTE 03:44 → MS3 21:54
PROC: 30233N1 Transfusion of Nonautologous Red Blood Cells into Peripheral Vein, Percutaneous Approach (ICD-10-PCS; principal; 2017-05-09)
DX: D57.00 Hb-SS disease with crisis, unspecified (principal); J45.909 Unspecified asthma, uncomplicated; R30.0 Dysuria; Z88.6 Allergy status to analgesic agent; Z88.0 Allergy status to penicillin
CPT/HCPCS: 36415; 36430; 80048; 80053; 81001; 81003; 81025; 85025; 85660; 86850; 86900; 86901; 86920; 87086; 96374; 96375; 96376; 99285-25

== ENCOUNTER 2017-06-04 08:03 | Inpatient (IN) | payer OTHER ==
[2017-06-04] MEDS ORDERED: DIPHENHYDRAMINE 50 MG INJ (09:20)
[2017-06-04 09:21] LABS: ADD MAN DIFF? NO
[2017-06-04] MEDS: DIPHENHYDRAMINE 25 MG CAP PO (09:23)
[2017-06-04 09:24] LABS: ABNORMAL IP MESSAGE 1; BASOPHIL # 0.1 10^3/ul (0.0-0.1); BASOPHILS % 0.8 % (0.0-2.0); EOSINOPHILS # 0.5 10^3/ul (0.0-0.5); EOSINOPHILS % 3.1 % (0.0-7.0); HEMATOCRIT 24.3 % (37.0-47.0); HEMOGLOBIN 8.2 g/dl (12.0-16.0); LYMPHOCYTES # 3.6 10^3/ul (0.8-2.9); LYMPHOCYTES % 22.5 % (15.0-51.0); MEAN CORPUSCULAR HEMOGLOBIN 30.5 pg (29.0-33.0); MEAN CORPUSCULAR HGB CONC 33.7 g/dl (32.0-37.0); MEAN CORPUSCULAR VOLUME 90.3 fl (82.0-101.0); MEAN PLATELET VOLUME 10.2 fl (7.4-10.4); MONOCYTE # 1.7 10^3/ul (0.3-0.9); MONOCYTES % 10.4 % (0.0-11.0); NEUTROPHIL # 9.9 10^3/ul (1.6-7.5); NUCLEATED RED BLOOD CELLS # 0.4 10^3/ul (0.0-0.0); NUCLEATED RED BLOOD CELLS% 2.5 /100WBC (0.0-0.0); PLATELET COUNT 442 10^3/UL (140-415); RED BLOOD COUNT 2.69 10^6/ul (4.20-5.40); RED CELL DISTRIBUTION WIDTH 20.3 % (11.5-14.5); RETICULOCYTE COUNT # 0.302 X10^6 (0.020-0.110); RETICULOCYTE COUNT % 11.2 % (0.5-1.5); RETICULOCYTE RBC 2.69
[2017-06-04 09:24] LABS: WHITE BLOOD COUNT 15.9 10^3/ul (4.8-10.8)
[2017-06-04] MEDS: morphine 4 MG/ML VIAL IV (09:25)
[2017-06-04] MEDS: ONDANSETRON 4 MG INJ IV (09:25)
[2017-06-04] MEDS: DIPHENHYDRAMINE 50 MG INJ IV ×5 (09:25→23:45)
[2017-06-04] MEDS: SOD CHLORIDE 0.9% 1,000 ML IV ×3 (09:25→16:51)
[2017-06-04 09:26] LABS: POSITIVE DIFF @See below
[2017-06-04 09:27] LABS: ADD UMIC YES; UR ASCORBIC ACID NEGATIVE (NEGATIVE); UR BILIRUBIN (Dip) NEGATIVE (NEGATIVE); UR BLOOD (Dip) NEGATIVE (NEGATIVE); UR CLARITY CLEAR (CLEAR); UR COLOR AMBER (YELLOW); UR GLUCOSE (Dip) NEGATIVE (NEGATIVE); UR KETONES (Dip) NEGATIVE (NEGATIVE); UR LEUKOCYTE ESTERASE (Dip) 2+ Leu/ul (NEGATIVE); UR MUCUS FEW /HPF (NONE SEEN); UR NITRITE (Dip) NEGATIVE (NEGATIVE); UR RBC 1 /HPF (0-5); UR SPECIFIC GRAVITY (Dip) 1.013 (1.003-1.030); UR SQUAMOUS EPITHELIAL CELL FEW /HPF (FEW); UR TOTAL PROTEIN (Dip) NEGATIVE (NEGATIVE); UR UROBILINOGEN (Dip) NEGATIVE (NEGATIVE); UR WBC 5 /HPF (0-5)
[2017-06-04 09:50] LABS: ALANINE AMINOTRANSFERASE 166 IU/L (13-69); ALBUMIN 4.4 g/dl (3.3-4.9); ALKALINE PHOSPHATASE 117 IU/L (42-121); ANION GAP 16 (8-16); ASPARTATE AMINO TRANSFERASE 145 IU/L (15-46); BILIRUBIN,INDIRECT 1.9 mg/dl (0-1.1); BILIRUBIN,TOTAL 1.9 mg/dl (0.2-1.3); BLOOD UREA NITROGEN 9 mg/dl (7-20); CALCIUM 8.8 mg/dl (8.4-10.2); CARBON DIOXIDE 28 mmol/L (21-31); CHLORIDE 104 mmol/L (97-110); CREATININE 0.67 mg/dl (0.44-1.00); GLUCOSE 100 mg/dl (70-220); LIPASE 77 U/L (23-300); POTASSIUM 3.9 mmol/L (3.5-5.1); SODIUM 144 mmol/L (135-144); TOTAL PROTEIN 8.8 g/dl (6.1-8.1)
[2017-06-04 09:58] LABS: PROTIME 14.4 Sec (11.9-14.9); PT RATIO 1.1
[2017-06-04 09:59] LABS: PARTIAL THROMBOPLASTIN TIME 34.2 Sec (25.0-35.0)
[2017-06-04] MEDS: morphine 2 MG INJ IV (10:40)
[2017-06-04] MEDS ORDERED: ACETAMINOPHEN 325 MG TAB PO (11:30)
[2017-06-04] MEDS ORDERED: ONDANSETRON 4 MG INJ IV (11:30)
[2017-06-04] MEDS: CEFTRIAXONE 1 GM/50 ML (PMX) 50 ML IVPB (12:01)
[2017-06-04] MEDS: morphine 10 MG INJ IV ×4 (12:01→23:45)
[2017-06-04] MEDS: AZITHROMYCIN 500MG/NS (PMX) 250 ML IV (12:16)
[2017-06-04 15:42] LABS: LACTIC ACID 0.7 mmol/L (0.5-2.0)
[2017-06-04] MEDS ORDERED: ALBUTEROL HFA 8 GM INHALER INH (16:30)
[2017-06-04] MEDS ORDERED: ZOLPIDEM 5 MG TAB PO (16:30)
[2017-06-04 16:56] LABS: LACTIC ACID 0.6 mmol/L (0.5-2.0)
[2017-06-04 19:36] LABS: LACTIC ACID 0.6 mmol/L (0.5-2.0)
[2017-06-04] MEDS: ACETAMINOPHEN 325 MG TAB PO (19:52)
[2017-06-04] MEDS: FAMOTIDINE 20 MG TAB PO (21:06)
[2017-06-04] MEDS: APIXABAN 5 MG TABLET PO (21:06)
[2017-06-04] MEDS: HYDROXYUREA 500 MG CAP PO (23:13)
[2017-06-05] MEDS: SOD CHLORIDE 0.9% 1,000 ML IV ×3 (03:47→22:01)
[2017-06-05] MEDS: DIPHENHYDRAMINE 50 MG INJ IV ×5 (03:47→20:12)
[2017-06-05] MEDS: morphine 10 MG INJ IV ×5 (03:48→20:12)
[2017-06-05 06:02] LABS: ADD MAN DIFF? NO
[2017-06-05 06:06] LABS: BASOPHIL # 0.1 10^3/ul (0.0-0.1); BASOPHILS % 0.7 % (0.0-2.0); EOSINOPHILS # 0.4 10^3/ul (0.0-0.5); EOSINOPHILS % 2.8 % (0.0-7.0); HEMATOCRIT 21.5 % (37.0-47.0); HEMOGLOBIN 7.2 g/dl (12.0-16.0); LYMPHOCYTES # 2.6 10^3/ul (0.8-2.9); LYMPHOCYTES % 17.2 % (15.0-51.0); MEAN CORPUSCULAR HEMOGLOBIN 30.8 pg (29.0-33.0); MEAN CORPUSCULAR HGB CONC 33.5 g/dl (32.0-37.0); MEAN CORPUSCULAR VOLUME 91.9 fl (82.0-101.0); MEAN PLATELET VOLUME 10.3 fl (7.4-10.4); MONOCYTES % 6.5 % (0.0-11.0); NEUTROPHIL # 10.8 10^3/ul (1.6-7.5); NUCLEATED RED BLOOD CELLS # 0.5 10^3/ul (0.0-0.0); PLATELET COUNT 343 10^3/UL (140-415); RED BLOOD COUNT 2.34 10^6/ul (4.20-5.40); RED CELL DISTRIBUTION WIDTH 20.1 % (11.5-14.5)
[2017-06-05 06:06] LABS: WHITE BLOOD COUNT 15.2 10^3/ul (4.8-10.8)
[2017-06-05] MEDS: ACETAMINOPHEN 325 MG TAB PO ×2 (06:31→15:58)
[2017-06-05 06:36] LABS: ANION GAP 16 (8-16); BLOOD UREA NITROGEN 6 mg/dl (7-20); CALCIUM 8.1 mg/dl (8.4-10.2); CARBON DIOXIDE 24 mmol/L (21-31); CHLORIDE 105 mmol/L (97-110); CREATININE 0.74 mg/dl (0.44-1.00); GLUCOSE 98 mg/dl (70-220); SODIUM 141 mmol/L (135-144)
[2017-06-05] MEDS: POLYETHYLENE GLYCOL 17 GM PACKET PO (09:00)
[2017-06-05] MEDS: FOLIC ACID 1 MG TAB PO (09:23)
[2017-06-05] MEDS: FAMOTIDINE 20 MG TAB PO ×2 (09:24→21:52)
[2017-06-05] MEDS: APIXABAN 5 MG TABLET PO ×2 (09:25→21:52)
[2017-06-05] MEDS: HYDROXYUREA 500 MG CAP PO ×2 (09:26→21:55)
[2017-06-05] MEDS: CEFTRIAXONE 1 GM/50 ML (PMX) 50 ML IVPB (11:13)
[2017-06-05] MEDS ORDERED: AZITHROMYCIN 250 MG TAB PO (15:30)
[2017-06-05] MEDS ORDERED: VANCOMYCIN IV PER PHARMACY XX (16:30)
[2017-06-05] MEDS: LEVALBUTEROL (NEB) 0.63 MG/3 ML AMP HHN ×2 (17:03→21:10)
[2017-06-05] MEDS: AZITHROMYCIN 500MG/NS (PMX) 250 ML IVPB (18:54)
[2017-06-05] MEDS: VANCOMYCIN 1.25 GM in SOD CHLORIDE 0.9% 250 ML IVPB (21:53)
[2017-06-06 02:25] LABS: IMMEDIATE SPIN CROSSMATCH 1 2
[2017-06-06 03:03] LABS: ADD MAN DIFF? NO
[2017-06-06] MEDS: DIPHENHYDRAMINE 50 MG INJ IV ×6 (03:59→20:06)
[2017-06-06] MEDS: morphine 10 MG INJ IV ×6 (04:00→20:15)
[2017-06-06] MEDS: VANCOMYCIN 1 GM 250 ML IVPB ×3 (05:34→23:02)
[2017-06-06] MEDS: LEVALBUTEROL (NEB) 0.63 MG/3 ML AMP HHN (06:24)
[2017-06-06] MEDS: SOD CHLORIDE 0.9% 1,000 ML IV ×2 (08:04→17:49)
[2017-06-06] MEDS: APIXABAN 5 MG TABLET PO ×2 (08:10→20:06)
[2017-06-06] MEDS: FOLIC ACID 1 MG TAB PO (08:10)
[2017-06-06] MEDS: FAMOTIDINE 20 MG TAB PO ×2 (08:10→20:06)
[2017-06-06] MEDS: POLYETHYLENE GLYCOL 17 GM PACKET PO (08:11)
[2017-06-06] MEDS: HYDROXYUREA 500 MG CAP PO ×2 (08:14→20:09)
[2017-06-06] MEDS: CEFTRIAXONE 1 GM/50 ML (PMX) 50 ML IVPB (11:42)
[2017-06-06 13:26] LABS: BASOPHIL # 0.1 10^3/ul (0.0-0.1); BASOPHILS % 0.8 % (0.0-2.0); EOSINOPHILS # 0.4 10^3/ul (0.0-0.5); EOSINOPHILS % 3.5 % (0.0-7.0); HEMATOCRIT 20.7 % (37.0-47.0); HEMOGLOBIN 7.1 g/dl (12.0-16.0); LYMPHOCYTES # 2.7 10^3/ul (0.8-2.9); MEAN CORPUSCULAR HEMOGLOBIN 30.9 pg (29.0-33.0); MEAN CORPUSCULAR HGB CONC 34.3 g/dl (32.0-37.0); MEAN PLATELET VOLUME 9.8 fl (7.4-10.4); MONOCYTE # 0.9 10^3/ul (0.3-0.9); MONOCYTES % 7.6 % (0.0-11.0); NEUTROPHIL # 6.9 10^3/ul (1.6-7.5); NEUTROPHILS % 61.3 % (39.0-77.0); NUCLEATED RED BLOOD CELLS # 0.4 10^3/ul (0.0-0.0); NUCLEATED RED BLOOD CELLS% 3.1 /100WBC (0.0-0.0); PLATELET COUNT 238 10^3/UL (140-415); RED CELL DISTRIBUTION WIDTH 18.2 % (11.5-14.5)
[2017-06-06 13:26] LABS: WHITE BLOOD COUNT 11.3 10^3/ul (4.8-10.8)
[2017-06-06 13:45] LABS: ANION GAP 27 (8-16); BLOOD UREA NITROGEN 3 mg/dl (7-20); CARBON DIOXIDE 17 mmol/L (21-31); CHLORIDE 115 mmol/L (97-110); CREATININE 0.47 mg/dl (0.44-1.00); GLUCOSE 81 mg/dl (70-220); POTASSIUM 3.3 mmol/L (3.5-5.1); SODIUM 156 mmol/L (135-144)
[2017-06-06 15:08] LABS: ADD MAN DIFF? NO
[2017-06-06 15:10] LABS: WHITE BLOOD COUNT 12.1 10^3/ul (4.8-10.8)
[2017-06-06 15:10] LABS: BASOPHIL # 0.1 10^3/ul (0.0-0.1); BASOPHILS % 0.7 % (0.0-2.0); EOSINOPHILS # 0.5 10^3/ul (0.0-0.5); HEMATOCRIT 23.1 % (37.0-47.0); HEMOGLOBIN 7.9 g/dl (12.0-16.0); LYMPHOCYTES # 3.5 10^3/ul (0.8-2.9); LYMPHOCYTES % 28.8 % (15.0-51.0); MEAN CORPUSCULAR HEMOGLOBIN 30.2 pg (29.0-33.0); MEAN CORPUSCULAR HGB CONC 34.2 g/dl (32.0-37.0); MEAN CORPUSCULAR VOLUME 88.2 fl (82.0-101.0); MEAN PLATELET VOLUME 10.1 fl (7.4-10.4); MONOCYTE # 1.3 10^3/ul (0.3-0.9); MONOCYTES % 10.6 % (0.0-11.0); NEUTROPHIL # 6.5 10^3/ul (1.6-7.5); NEUTROPHILS % 53.8 % (39.0-77.0); NUCLEATED RED BLOOD CELLS # 0.3 10^3/ul (0.0-0.0); NUCLEATED RED BLOOD CELLS% 2.8 /100WBC (0.0-0.0); PLATELET COUNT 281 10^3/UL (140-415); RED BLOOD COUNT 2.62 10^6/ul (4.20-5.40); RED CELL DISTRIBUTION WIDTH 18.6 % (11.5-14.5)
[2017-06-06] MEDS: ONDANSETRON 4 MG INJ IV (16:08)
[2017-06-06] MEDS: AZITHROMYCIN 500MG/NS (PMX) 250 ML IVPB (17:49)
[2017-06-06] MEDS: CLOTRIMAZOLE 1% 45 GM VAG CR VAG (20:15)
[2017-06-06 21:22] LABS: VANCOMYCIN,TROUGH 15.9 ug/ml (10.0-20.0)
[2017-06-07] MEDS: DIPHENHYDRAMINE 50 MG INJ IV ×7 (00:08→20:14)
[2017-06-07] MEDS: morphine 10 MG INJ IV ×6 (00:09→20:14)
[2017-06-07] MEDS: ACETAMINOPHEN 325 MG TAB PO (01:20)
[2017-06-07] MEDS: ONDANSETRON 4 MG INJ IV ×2 (04:15→16:17)
[2017-06-07] MEDS: VANCOMYCIN 1 GM 250 ML IVPB ×3 (05:46→22:22)
[2017-06-07] MEDS: SOD CHLORIDE 0.9% 1,000 ML IV ×3 (05:50→16:17)
[2017-06-07] MEDS: APIXABAN 5 MG TABLET PO ×2 (08:04→20:14)
[2017-06-07] MEDS: FOLIC ACID 1 MG TAB PO (08:04)
[2017-06-07] MEDS: POLYETHYLENE GLYCOL 17 GM PACKET PO (08:05)
[2017-06-07] MEDS: FAMOTIDINE 20 MG TAB PO ×2 (08:05→20:14)
[2017-06-07] MEDS: HYDROXYUREA 500 MG CAP PO ×2 (08:22→20:20)
[2017-06-07] MEDS: LEVALBUTEROL (NEB) 0.63 MG/3 ML AMP HHN (10:37)
[2017-06-07] MEDS: CEFTRIAXONE 1 GM/50 ML (PMX) 50 ML IVPB (11:08)
[2017-06-07] MEDS ORDERED: VITAMIN A & D 5 GM OINT PACKET TOP (11:37)
[2017-06-07 13:58] LABS: ADD MAN DIFF? NO
[2017-06-07 13:59] LABS: ABNORMAL IP MESSAGE 1; BASOPHIL # 0.1 10^3/ul (0.0-0.1); BASOPHILS % 0.9 % (0.0-2.0); EOSINOPHILS # 0.5 10^3/ul (0.0-0.5); HEMATOCRIT 25.9 % (37.0-47.0); HEMOGLOBIN 8.9 g/dl (12.0-16.0); LYMPHOCYTES # 3.5 10^3/ul (0.8-2.9); LYMPHOCYTES % 29.4 % (15.0-51.0); MEAN CORPUSCULAR HEMOGLOBIN 30.6 pg (29.0-33.0); MEAN CORPUSCULAR HGB CONC 34.4 g/dl (32.0-37.0); MEAN PLATELET VOLUME 10.1 fl (7.4-10.4); MONOCYTE # 1.6 10^3/ul (0.3-0.9); MONOCYTES % 13.4 % (0.0-11.0); NEUTROPHILS % 50.9 % (39.0-77.0); NUCLEATED RED BLOOD CELLS # 0.4 10^3/ul (0.0-0.0); NUCLEATED RED BLOOD CELLS% 3.1 /100WBC (0.0-0.0); PLATELET COUNT 273 10^3/UL (140-415); RED BLOOD COUNT 2.91 10^6/ul (4.20-5.40); RED CELL DISTRIBUTION WIDTH 18.3 % (11.5-14.5)
[2017-06-07 13:59] LABS: WHITE BLOOD COUNT 11.8 10^3/ul (4.8-10.8)
[2017-06-07 14:02] LABS: POSITIVE DIFF @See below
[2017-06-07 14:15] LABS: ANION GAP 14 (8-16); BLOOD UREA NITROGEN 6 mg/dl (7-20); CALCIUM 8.5 mg/dl (8.4-10.2); CARBON DIOXIDE 27 mmol/L (21-31); CHLORIDE 105 mmol/L (97-110); CREATININE 0.63 mg/dl (0.44-1.00); GLUCOSE 102 mg/dl (70-220); SODIUM 142 mmol/L (135-144)
[2017-06-07] MEDS: AZITHROMYCIN 500MG/NS (PMX) 250 ML IVPB (17:32)
[2017-06-07] MEDS: CLOTRIMAZOLE 1% 45 GM VAG CR VAG (20:15)
[2017-06-08] MEDS: SOD CHLORIDE 0.9% 1,000 ML IV ×4 (00:01→20:08)
[2017-06-08] MEDS: DIPHENHYDRAMINE 50 MG INJ IV ×7 (00:06→23:59)
[2017-06-08] MEDS: morphine 10 MG INJ IV ×6 (00:07→20:09)
[2017-06-08] MEDS: VANCOMYCIN 1 GM 250 ML IVPB ×2 (05:36→14:17)
[2017-06-08] MEDS: APIXABAN 5 MG TABLET PO ×2 (08:19→20:04)
[2017-06-08] MEDS: POLYETHYLENE GLYCOL 17 GM PACKET PO (08:19)
[2017-06-08] MEDS: FOLIC ACID 1 MG TAB PO (08:19)
[2017-06-08] MEDS: FAMOTIDINE 20 MG TAB PO ×2 (08:19→20:04)
[2017-06-08] MEDS: HYDROXYUREA 500 MG CAP PO ×2 (08:29→20:07)
[2017-06-08] MEDS: CEFTRIAXONE 1 GM/50 ML (PMX) 50 ML IVPB (11:16)
[2017-06-08] MEDS: ACETAMINOPHEN 325 MG TAB PO ×2 (11:23→22:23)
[2017-06-08] MEDS: LEVALBUTEROL (NEB) 0.63 MG/3 ML AMP HHN ×2 (11:58→16:06)
[2017-06-08 11:59] LABS: ADD MAN DIFF? NO
[2017-06-08 12:18] LABS: ANION GAP 15 (8-16); BLOOD UREA NITROGEN 7 mg/dl (7-20); CALCIUM 8.8 mg/dl (8.4-10.2); CARBON DIOXIDE 29 mmol/L (21-31); CHLORIDE 103 mmol/L (97-110); CREATININE 0.68 mg/dl (0.44-1.00); GLUCOSE 108 mg/dl (70-220); POTASSIUM 4.5 mmol/L (3.5-5.1); SODIUM 142 mmol/L (135-144)
[2017-06-08 12:19] LABS: WHITE BLOOD COUNT 10.7 10^3/ul (4.8-10.8)
[2017-06-08 12:19] LABS: BASOPHIL # 0.1 10^3/ul (0.0-0.1); BASOPHILS % 0.7 % (0.0-2.0); EOSINOPHILS # 0.7 10^3/ul (0.0-0.5); EOSINOPHILS % 6.1 % (0.0-7.0); HEMATOCRIT 25.9 % (37.0-47.0); HEMOGLOBIN 8.8 g/dl (12.0-16.0); LYMPHOCYTES # 3.2 10^3/ul (0.8-2.9); LYMPHOCYTES % 30.2 % (15.0-51.0); MEAN CORPUSCULAR HEMOGLOBIN 30.1 pg (29.0-33.0); MEAN CORPUSCULAR VOLUME 88.7 fl (82.0-101.0); MEAN PLATELET VOLUME 10.7 fl (7.4-10.4); MONOCYTES % 9.5 % (0.0-11.0); NEUTROPHIL # 5.6 10^3/ul (1.6-7.5); NEUTROPHILS % 52.7 % (39.0-77.0); NUCLEATED RED BLOOD CELLS # 0.4 10^3/ul (0.0-0.0); NUCLEATED RED BLOOD CELLS% 3.6 /100WBC (0.0-0.0); PLATELET COUNT 301 10^3/UL (140-415); RED BLOOD COUNT 2.92 10^6/ul (4.20-5.40); RED CELL DISTRIBUTION WIDTH 18.3 % (11.5-14.5)
[2017-06-08] MEDS: AZITHROMYCIN 500MG/NS (PMX) 250 ML IVPB (18:12)
[2017-06-08] MEDS: CLOTRIMAZOLE 1% 45 GM VAG CR VAG (20:12)
[2017-06-08] MEDS: ALBUTEROL 0.083% (NEB) 2.5 MG/3 ML AMP HHN (20:40)
[2017-06-09] MEDS: morphine 10 MG INJ IV ×6 (00:01→20:07)
[2017-06-09] MEDS: ALBUTEROL 0.083% (NEB) 2.5 MG/3 ML AMP HHN ×4 (02:00→20:59)
[2017-06-09] MEDS: LEVALBUTEROL (NEB) 0.63 MG/3 ML AMP HHN (02:18)
[2017-06-09] MEDS: DIPHENHYDRAMINE 50 MG INJ IV ×5 (04:05→20:07)
[2017-06-09] MEDS: DOCUSATE SODIUM 100 MG CAP PO (04:09)
[2017-06-09] MEDS: SOD CHLORIDE 0.9% 1,000 ML IV ×3 (06:01→16:01)
[2017-06-09 08:24] LABS: ADD MAN DIFF? NO
[2017-06-09 08:28] LABS: BASOPHIL # 0.1 10^3/ul (0.0-0.1); BASOPHILS % 0.6 % (0.0-2.0); EOSINOPHILS # 0.7 10^3/ul (0.0-0.5); EOSINOPHILS % 5.3 % (0.0-7.0); HEMATOCRIT 25.8 % (37.0-47.0); HEMOGLOBIN 8.8 g/dl (12.0-16.0); LYMPHOCYTES # 1.9 10^3/ul (0.8-2.9); LYMPHOCYTES % 15.2 % (15.0-51.0); MEAN CORPUSCULAR HEMOGLOBIN 30.4 pg (29.0-33.0); MEAN CORPUSCULAR HGB CONC 34.1 g/dl (32.0-37.0); MEAN CORPUSCULAR VOLUME 89.3 fl (82.0-101.0); MEAN PLATELET VOLUME 10.6 fl (7.4-10.4); MONOCYTES % 8.2 % (0.0-11.0); NEUTROPHIL # 8.5 10^3/ul (1.6-7.5); NEUTROPHILS % 69.8 % (39.0-77.0); NUCLEATED RED BLOOD CELLS # 0.2 10^3/ul (0.0-0.0); NUCLEATED RED BLOOD CELLS% 1.5 /100WBC (0.0-0.0); PLATELET COUNT 263 10^3/UL (140-415); RED BLOOD COUNT 2.89 10^6/ul (4.20-5.40); RED CELL DISTRIBUTION WIDTH 18.5 % (11.5-14.5)
[2017-06-09 08:28] LABS: WHITE BLOOD COUNT 12.2 10^3/ul (4.8-10.8)
[2017-06-09] MEDS: POLYETHYLENE GLYCOL 17 GM PACKET PO (08:28)
[2017-06-09] MEDS: FAMOTIDINE 20 MG TAB PO ×2 (08:28→20:07)
[2017-06-09] MEDS: APIXABAN 5 MG TABLET PO ×2 (08:28→20:07)
[2017-06-09] MEDS: FOLIC ACID 1 MG TAB PO (08:28)
[2017-06-09 08:48] LABS: ANION GAP 16 (8-16); BLOOD UREA NITROGEN 7 mg/dl (7-20); CALCIUM 8.6 mg/dl (8.4-10.2); CARBON DIOXIDE 26 mmol/L (21-31); CHLORIDE 103 mmol/L (97-110); CREATININE 0.64 mg/dl (0.44-1.00); GLUCOSE 106 mg/dl (70-220); POTASSIUM 4.4 mmol/L (3.5-5.1); SODIUM 141 mmol/L (135-144)
[2017-06-09] MEDS: HYDROXYUREA 500 MG CAP PO ×2 (08:52→20:13)
[2017-06-09] MEDS: CEFTRIAXONE 1 GM/50 ML (PMX) 50 ML IVPB (10:24)
[2017-06-09] MEDS: ACETAMINOPHEN 325 MG TAB PO ×2 (10:24→20:07)
[2017-06-09] MEDS: ONDANSETRON 4 MG INJ IV (10:24)
[2017-06-09] MEDS: ACETAMINOPHEN 500 MG TAB PO (14:24)
[2017-06-09] MEDS: AZITHROMYCIN 500MG/NS (PMX) 250 ML IVPB (18:08)
[2017-06-10] MEDS: ONDANSETRON 4 MG INJ IV ×2 (00:07→20:05)
[2017-06-10] MEDS: DIPHENHYDRAMINE 50 MG INJ IV ×7 (00:07→23:57)
[2017-06-10] MEDS: morphine 10 MG INJ IV ×7 (00:08→23:57)
[2017-06-10] MEDS: SOD CHLORIDE 0.9% 1,000 ML IV ×4 (01:44→22:01)
[2017-06-10] MEDS: ALBUTEROL 0.083% (NEB) 2.5 MG/3 ML AMP HHN ×4 (02:12→20:00)
[2017-06-10] MEDS: APIXABAN 5 MG TABLET PO ×2 (08:12→20:04)
[2017-06-10] MEDS: FAMOTIDINE 20 MG TAB PO ×2 (08:12→20:04)
[2017-06-10] MEDS: POLYETHYLENE GLYCOL 17 GM PACKET PO (08:16)
[2017-06-10] MEDS: FOLIC ACID 1 MG TAB PO (08:16)
[2017-06-10] MEDS: HYDROXYUREA 500 MG CAP PO ×2 (08:16→20:03)
[2017-06-10] MEDS: CEFTRIAXONE 1 GM/50 ML (PMX) 50 ML IVPB (11:43)
[2017-06-10 12:15] LABS: ADD MAN DIFF? NO
[2017-06-10 12:23] LABS: BASOPHIL # 0.1 10^3/ul (0.0-0.1); BASOPHILS % 0.5 % (0.0-2.0); EOSINOPHILS # 0.7 10^3/ul (0.0-0.5); EOSINOPHILS % 5.6 % (0.0-7.0); HEMATOCRIT 26.6 % (37.0-47.0); HEMOGLOBIN 8.9 g/dl (12.0-16.0); LYMPHOCYTES # 3.9 10^3/ul (0.8-2.9); LYMPHOCYTES % 29.4 % (15.0-51.0); MEAN CORPUSCULAR HEMOGLOBIN 29.9 pg (29.0-33.0); MEAN CORPUSCULAR HGB CONC 33.5 g/dl (32.0-37.0); MEAN CORPUSCULAR VOLUME 89.3 fl (82.0-101.0); MEAN PLATELET VOLUME 10.8 fl (7.4-10.4); MONOCYTE # 1.1 10^3/ul (0.3-0.9); MONOCYTES % 8.4 % (0.0-11.0); NEUTROPHIL # 7.4 10^3/ul (1.6-7.5); NEUTROPHILS % 55.4 % (39.0-77.0); NUCLEATED RED BLOOD CELLS # 0.1 10^3/ul (0.0-0.0); NUCLEATED RED BLOOD CELLS% 0.6 /100WBC (0.0-0.0); PLATELET COUNT 269 10^3/UL (140-415); RED BLOOD COUNT 2.98 10^6/ul (4.20-5.40); RED CELL DISTRIBUTION WIDTH 18.2 % (11.5-14.5)
[2017-06-10 12:23] LABS: WHITE BLOOD COUNT 13.3 10^3/ul (4.8-10.8)
[2017-06-10 12:41] LABS: ANION GAP 17 (8-16); BLOOD UREA NITROGEN 8 mg/dl (7-20); CALCIUM 9.1 mg/dl (8.4-10.2); CARBON DIOXIDE 27 mmol/L (21-31); CHLORIDE 101 mmol/L (97-110); CREATININE 0.64 mg/dl (0.44-1.00); GLUCOSE 127 mg/dl (70-220); POTASSIUM 4.2 mmol/L (3.5-5.1); SODIUM 141 mmol/L (135-144)
[2017-06-10] MEDS: AZITHROMYCIN 500MG/NS (PMX) 250 ML IVPB (18:32)
[2017-06-11] MEDS: ALBUTEROL 0.083% (NEB) 2.5 MG/3 ML AMP HHN ×4 (01:23→19:40)
[2017-06-11] MEDS: morphine 10 MG INJ IV ×5 (03:58→20:12)
[2017-06-11] MEDS: DIPHENHYDRAMINE 50 MG INJ IV ×5 (03:59→20:12)
[2017-06-11] MEDS: SOD CHLORIDE 0.9% 1,000 ML IV ×2 (04:04→17:51)
[2017-06-11 09:03] LABS: ADD MAN DIFF? NO
[2017-06-11 09:04] LABS: WHITE BLOOD COUNT 12.8 10^3/ul (4.8-10.8)
[2017-06-11 09:04] LABS: BASOPHIL # 0.1 10^3/ul (0.0-0.1); BASOPHILS % 0.9 % (0.0-2.0); EOSINOPHILS # 0.8 10^3/ul (0.0-0.5); EOSINOPHILS % 6.3 % (0.0-7.0); HEMATOCRIT 26.7 % (37.0-47.0); LYMPHOCYTES # 4.1 10^3/ul (0.8-2.9); LYMPHOCYTES % 31.9 % (15.0-51.0); MEAN CORPUSCULAR HEMOGLOBIN 30.3 pg (29.0-33.0); MEAN CORPUSCULAR HGB CONC 33.7 g/dl (32.0-37.0); MEAN CORPUSCULAR VOLUME 89.9 fl (82.0-101.0); MEAN PLATELET VOLUME 10.6 fl (7.4-10.4); NEUTROPHIL # 6.7 10^3/ul (1.6-7.5); NEUTROPHILS % 52.2 % (39.0-77.0); NUCLEATED RED BLOOD CELLS # 0.1 10^3/ul (0.0-0.0); NUCLEATED RED BLOOD CELLS% 0.9 /100WBC (0.0-0.0); PLATELET COUNT 287 10^3/UL (140-415); RED BLOOD COUNT 2.97 10^6/ul (4.20-5.40); RED CELL DISTRIBUTION WIDTH 17.9 % (11.5-14.5)
[2017-06-11 09:26] LABS: ANION GAP 16 (8-16); BLOOD UREA NITROGEN 12 mg/dl (7-20); CALCIUM 9.1 mg/dl (8.4-10.2); CARBON DIOXIDE 27 mmol/L (21-31); CHLORIDE 103 mmol/L (97-110); CREATININE 0.69 mg/dl (0.44-1.00); GLUCOSE 116 mg/dl (70-220); POTASSIUM 4.1 mmol/L (3.5-5.1); SODIUM 142 mmol/L (135-144)
[2017-06-11] MEDS: POLYETHYLENE GLYCOL 17 GM PACKET PO (10:54)
[2017-06-11] MEDS: FAMOTIDINE 20 MG TAB PO ×2 (10:54→20:12)
[2017-06-11] MEDS: FOLIC ACID 1 MG TAB PO (10:54)
[2017-06-11] MEDS: APIXABAN 5 MG TABLET PO ×2 (10:55→20:12)
[2017-06-11] MEDS: HYDROXYUREA 500 MG CAP PO ×2 (10:58→20:19)
[2017-06-11] MEDS: CEFTRIAXONE 1 GM/50 ML (PMX) 50 ML IVPB (12:17)
[2017-06-11] MEDS: AZITHROMYCIN 500MG/NS (PMX) 250 ML IVPB (17:50)
[2017-06-12] MEDS: DIPHENHYDRAMINE 50 MG INJ IV ×4 (00:10→20:19)
[2017-06-12] MEDS: morphine 10 MG INJ IV ×4 (00:10→20:20)
[2017-06-12] MEDS: ALBUTEROL 0.083% (NEB) 2.5 MG/3 ML AMP HHN ×4 (01:26→19:58)
[2017-06-12] MEDS: SOD CHLORIDE 0.9% 1,000 ML IV ×3 (04:01→14:01)
[2017-06-12] MEDS: FOLIC ACID 1 MG TAB PO (08:25)
[2017-06-12] MEDS: APIXABAN 5 MG TABLET PO ×2 (08:25→20:19)
[2017-06-12] MEDS: POLYETHYLENE GLYCOL 17 GM PACKET PO (08:26)
[2017-06-12] MEDS: FAMOTIDINE 20 MG TAB PO ×2 (08:26→20:19)
[2017-06-12] MEDS: HYDROXYUREA 500 MG CAP PO ×2 (09:05→20:38)
[2017-06-12 09:54] LABS: ADD MAN DIFF? NO
[2017-06-12 10:00] LABS: BASOPHIL # 0.1 10^3/ul (0.0-0.1); BASOPHILS % 0.9 % (0.0-2.0); EOSINOPHILS # 0.8 10^3/ul (0.0-0.5); EOSINOPHILS % 6.8 % (0.0-7.0); HEMATOCRIT 27.5 % (37.0-47.0); HEMOGLOBIN 9.1 g/dl (12.0-16.0); LYMPHOCYTES # 3.2 10^3/ul (0.8-2.9); LYMPHOCYTES % 27.2 % (15.0-51.0); MEAN CORPUSCULAR HEMOGLOBIN 29.6 pg (29.0-33.0); MEAN CORPUSCULAR HGB CONC 33.1 g/dl (32.0-37.0); MEAN CORPUSCULAR VOLUME 89.6 fl (82.0-101.0); MEAN PLATELET VOLUME 10.4 fl (7.4-10.4); MONOCYTE # 0.8 10^3/ul (0.3-0.9); MONOCYTES % 7.2 % (0.0-11.0); NEUTROPHIL # 6.7 10^3/ul (1.6-7.5); NEUTROPHILS % 57.3 % (39.0-77.0); NUCLEATED RED BLOOD CELLS # 0.1 10^3/ul (0.0-0.0); NUCLEATED RED BLOOD CELLS% 0.9 /100WBC (0.0-0.0); PLATELET COUNT 357 10^3/UL (140-415); RED BLOOD COUNT 3.07 10^6/ul (4.20-5.40); RED CELL DISTRIBUTION WIDTH 18.1 % (11.5-14.5)
[2017-06-12 10:00] LABS: WHITE BLOOD COUNT 11.7 10^3/ul (4.8-10.8)
[2017-06-12 10:22] LABS: ANION GAP 17 (8-16); BLOOD UREA NITROGEN 12 mg/dl (7-20); CALCIUM 9.2 mg/dl (8.4-10.2); CARBON DIOXIDE 25 mmol/L (21-31); CHLORIDE 104 mmol/L (97-110); GLUCOSE 103 mg/dl (70-220); POTASSIUM 4.7 mmol/L (3.5-5.1); SODIUM 141 mmol/L (135-144)
[2017-06-12] MEDS: CEFTRIAXONE 1 GM/50 ML (PMX) 50 ML IVPB (12:32)
[2017-06-12] MEDS: AZITHROMYCIN 500MG/NS (PMX) 250 ML IVPB (20:20)
[2017-06-13] MEDS: DIPHENHYDRAMINE 50 MG INJ IV ×6 (00:15→20:23)
[2017-06-13] MEDS: ONDANSETRON 4 MG INJ IV (00:15)
[2017-06-13] MEDS: morphine 10 MG INJ IV ×6 (00:16→20:24)
[2017-06-13] MEDS: SOD CHLORIDE 0.9% 1,000 ML IV ×4 (00:17→22:14)
[2017-06-13] MEDS: ALBUTEROL 0.083% (NEB) 2.5 MG/3 ML AMP HHN ×4 (01:35→20:41)
[2017-06-13] MEDS: FAMOTIDINE 20 MG TAB PO ×2 (08:19→20:23)
[2017-06-13] MEDS: POLYETHYLENE GLYCOL 17 GM PACKET PO (08:19)
[2017-06-13] MEDS: FOLIC ACID 1 MG TAB PO (08:19)
[2017-06-13] MEDS: HYDROXYUREA 500 MG CAP PO ×2 (08:21→20:30)
[2017-06-13 09:08] LABS: ADD MAN DIFF? NO
[2017-06-13 09:12] LABS: BASOPHIL # 0.1 10^3/ul (0.0-0.1); BASOPHILS % 0.8 % (0.0-2.0); EOSINOPHILS # 0.9 10^3/ul (0.0-0.5); EOSINOPHILS % 7.4 % (0.0-7.0); HEMATOCRIT 24.9 % (37.0-47.0); HEMOGLOBIN 8.1 g/dl (12.0-16.0); LYMPHOCYTES # 4.3 10^3/ul (0.8-2.9); LYMPHOCYTES % 36.5 % (15.0-51.0); MEAN CORPUSCULAR HEMOGLOBIN 29.2 pg (29.0-33.0); MEAN CORPUSCULAR HGB CONC 32.5 g/dl (32.0-37.0); MEAN CORPUSCULAR VOLUME 89.9 fl (82.0-101.0); MEAN PLATELET VOLUME 10.2 fl (7.4-10.4); MONOCYTES % 8.5 % (0.0-11.0); NEUTROPHIL # 5.5 10^3/ul (1.6-7.5); NEUTROPHILS % 46.1 % (39.0-77.0); NUCLEATED RED BLOOD CELLS # 0.1 10^3/ul (0.0-0.0); NUCLEATED RED BLOOD CELLS% 0.6 /100WBC (0.0-0.0); PLATELET COUNT 346 10^3/UL (140-415); RED BLOOD COUNT 2.77 10^6/ul (4.20-5.40)
[2017-06-13 09:12] LABS: WHITE BLOOD COUNT 11.9 10^3/ul (4.8-10.8)
[2017-06-13 09:34] LABS: ANION GAP 16 (8-16); BLOOD UREA NITROGEN 11 mg/dl (7-20); CARBON DIOXIDE 26 mmol/L (21-31); CHLORIDE 104 mmol/L (97-110); CREATININE 0.68 mg/dl (0.44-1.00); GLUCOSE 115 mg/dl (70-220); POTASSIUM 4.4 mmol/L (3.5-5.1); SODIUM 142 mmol/L (135-144)
[2017-06-13] MEDS: CEFTRIAXONE 1 GM/50 ML (PMX) 50 ML IVPB (10:37)
[2017-06-13] MEDS: APIXABAN 5 MG TABLET PO (11:22)
[2017-06-14] MEDS: DIPHENHYDRAMINE 50 MG INJ IV ×6 (00:32→21:02)
[2017-06-14] MEDS: morphine 10 MG INJ IV ×6 (00:32→21:03)
[2017-06-14] MEDS: ALBUTEROL 0.083% (NEB) 2.5 MG/3 ML AMP HHN ×4 (01:47→20:00)
[2017-06-14] MEDS: HYDROXYUREA 500 MG CAP PO ×2 (08:36→21:06)
[2017-06-14] MEDS: FOLIC ACID 1 MG TAB PO (08:37)
[2017-06-14] MEDS: POLYETHYLENE GLYCOL 17 GM PACKET PO (08:37)
[2017-06-14] MEDS: FAMOTIDINE 20 MG TAB PO ×2 (08:37→21:02)
[2017-06-14 10:49] LABS: ADD MAN DIFF? NO
[2017-06-14 10:55] LABS: WHITE BLOOD COUNT 9.6 10^3/ul (4.8-10.8)
[2017-06-14 10:55] LABS: BASOPHIL # 0.1 10^3/ul (0.0-0.1); EOSINOPHILS # 0.8 10^3/ul (0.0-0.5); EOSINOPHILS % 8.7 % (0.0-7.0); HEMATOCRIT 25.2 % (37.0-47.0); HEMOGLOBIN 8.4 g/dl (12.0-16.0); LYMPHOCYTES # 2.9 10^3/ul (0.8-2.9); LYMPHOCYTES % 29.7 % (15.0-51.0); MEAN CORPUSCULAR HEMOGLOBIN 29.9 pg (29.0-33.0); MEAN CORPUSCULAR HGB CONC 33.3 g/dl (32.0-37.0); MEAN CORPUSCULAR VOLUME 89.7 fl (82.0-101.0); MEAN PLATELET VOLUME 10.1 fl (7.4-10.4); MONOCYTE # 0.9 10^3/ul (0.3-0.9); MONOCYTES % 9.6 % (0.0-11.0); NEUTROPHIL # 4.8 10^3/ul (1.6-7.5); NEUTROPHILS % 50.3 % (39.0-77.0); NUCLEATED RED BLOOD CELLS # 0.1 10^3/ul (0.0-0.0); NUCLEATED RED BLOOD CELLS% 0.7 /100WBC (0.0-0.0); PLATELET COUNT 360 10^3/UL (140-415); RED BLOOD COUNT 2.81 10^6/ul (4.20-5.40); RED CELL DISTRIBUTION WIDTH 17.7 % (11.5-14.5)
[2017-06-14 11:14] LABS: ANION GAP 12 (8-16); BLOOD UREA NITROGEN 11 mg/dl (7-20); CALCIUM 9.2 mg/dl (8.4-10.2); CARBON DIOXIDE 31 mmol/L (21-31); CHLORIDE 103 mmol/L (97-110); CREATININE 0.68 mg/dl (0.44-1.00); GLUCOSE 117 mg/dl (70-220); POTASSIUM 4.9 mmol/L (3.5-5.1); SODIUM 141 mmol/L (135-144)
[2017-06-14] MEDS: SOD CHLORIDE 0.9% 1,000 ML IV (12:45)
[2017-06-14] MEDS: HEPARIN (100 UNITS/ML) 5 ML SYG CATHETER (22:20)
[2017-06-14 23:01] LABS: ADD UMIC YES; UR ASCORBIC ACID NEGATIVE (NEGATIVE); UR BILIRUBIN (Dip) NEGATIVE (NEGATIVE); UR BLOOD (Dip) 1+ mg/dL (NEGATIVE); UR CLARITY SLIGHTLY CLOUDY (CLEAR); UR COLOR YELLOW (YELLOW); UR GLUCOSE (Dip) NEGATIVE (NEGATIVE); UR KETONES (Dip) NEGATIVE (NEGATIVE); UR LEUKOCYTE ESTERASE (Dip) TRACE Leu/ul (NEGATIVE); UR MUCUS FEW /HPF (NONE SEEN); UR NITRITE (Dip) NEGATIVE (NEGATIVE); UR RBC 1 /HPF (0-5); UR SQUAMOUS EPITHELIAL CELL FEW /HPF (FEW); UR TOTAL PROTEIN (Dip) NEGATIVE (NEGATIVE); UR UROBILINOGEN (Dip) NEGATIVE (NEGATIVE); UR WBC 3 /HPF (0-5)
== END 2017-06-14 22:35 | disposition home or self-care (01) | DRG 871 ==
LOC: FTE 08:03 → MS2 11:29
PROC: 30233N1 Transfusion of Nonautologous Red Blood Cells into Peripheral Vein, Percutaneous Approach (ICD-10-PCS; principal; 2017-06-06)
DX: A41.9 Sepsis, unspecified organism (principal); D57.00 Hb-SS disease with crisis, unspecified; M87.9 Osteonecrosis, unspecified; J03.90 Acute tonsillitis, unspecified; E83.111 Hemochromatosis due to repeated red blood cell transfusions; L29.2 Pruritus vulvae; R31.9 Hematuria, unspecified; J01.90 Acute sinusitis, unspecified; J02.9 Acute pharyngitis, unspecified; Z86.711 Personal history of pulmonary embolism
CPT/HCPCS: 36415; 36430; 70490; 71045; 71046; 73110-RT; 73221; 76536; 80048; 80053; 80202; 81001; 83605; 83690; 85025; 85045; 85610; 85730; 86644; 86850; 86900; 86901; 86920; 87040; 87070; 87086; 87400; 87880; 94640; 94664; 96365; 96368; 96375; 96376; 99285-25

== ENCOUNTER 2017-06-21 09:02 | Inpatient (IN) | payer OTHER ==
[2017-06-21] MEDS: SOD CHLORIDE 0.9% 1,000 ML IV (10:08)
[2017-06-21] MEDS: morphine 4 MG/ML VIAL IV (10:09)
[2017-06-21 10:19] LABS: ADD MAN DIFF? NO
[2017-06-21 10:24] LABS: WHITE BLOOD COUNT 13.3 10^3/ul (4.8-10.8)
[2017-06-21 10:24] LABS: ABNORMAL IP MESSAGE 1; BASOPHIL # 0.1 10^3/ul (0.0-0.1); BASOPHILS % 1.1 % (0.0-2.0); EOSINOPHILS # 0.5 10^3/ul (0.0-0.5); EOSINOPHILS % 3.8 % (0.0-7.0); HEMATOCRIT 25.2 % (37.0-47.0); HEMOGLOBIN 8.6 g/dl (12.0-16.0); LYMPHOCYTES # 3.9 10^3/ul (0.8-2.9); LYMPHOCYTES % 29.1 % (15.0-51.0); MEAN CORPUSCULAR HEMOGLOBIN 30.4 pg (29.0-33.0); MEAN CORPUSCULAR HGB CONC 34.1 g/dl (32.0-37.0); MEAN PLATELET VOLUME 9.9 fl (7.4-10.4); MONOCYTE # 1.5 10^3/ul (0.3-0.9); MONOCYTES % 11.4 % (0.0-11.0); NEUTROPHIL # 7.1 10^3/ul (1.6-7.5); NEUTROPHILS % 53.5 % (39.0-77.0); NUCLEATED RED BLOOD CELLS # 0.1 10^3/ul (0.0-0.0); NUCLEATED RED BLOOD CELLS% 0.8 /100WBC (0.0-0.0); PLATELET COUNT 396 10^3/UL (140-415); RED BLOOD COUNT 2.83 10^6/ul (4.20-5.40); RED CELL DISTRIBUTION WIDTH 17.7 % (11.5-14.5)
[2017-06-21] MEDS: LEVOFLOXACIN 750MG/D5W (PMX) 150 ML IVPB (10:28)
[2017-06-21 10:30] LABS: ADD UMIC NO; UR ASCORBIC ACID NEGATIVE (NEGATIVE); UR BILIRUBIN (Dip) NEGATIVE (NEGATIVE); UR BLOOD (Dip) NEGATIVE (NEGATIVE); UR CLARITY CLEAR (CLEAR); UR COLOR YELLOW (YELLOW); UR GLUCOSE (Dip) NEGATIVE (NEGATIVE); UR KETONES (Dip) NEGATIVE (NEGATIVE); UR LEUKOCYTE ESTERASE (Dip) NEGATIVE Leu/ul (NEGATIVE); UR NITRITE (Dip) NEGATIVE (NEGATIVE); UR SPECIFIC GRAVITY (Dip) 1.012 (1.003-1.030); UR TOTAL PROTEIN (Dip) NEGATIVE (NEGATIVE); UR UROBILINOGEN (Dip) NEGATIVE (NEGATIVE)
[2017-06-21 10:41] LABS: ALANINE AMINOTRANSFERASE 95 IU/L (13-69); ALBUMIN 4.1 g/dl (3.3-4.9); ALBUMIN/GLOBULIN RATIO 0.93; ALKALINE PHOSPHATASE 113 IU/L (42-121); ANION GAP 16 (8-16); ASPARTATE AMINO TRANSFERASE 95 IU/L (15-46); BILIRUBIN,INDIRECT 1.4 mg/dl (0-1.1); BILIRUBIN,TOTAL 1.4 mg/dl (0.2-1.3); BLOOD UREA NITROGEN 9 mg/dl (7-20); CARBON DIOXIDE 27 mmol/L (21-31); CHLORIDE 102 mmol/L (97-110); CREATININE 0.66 mg/dl (0.44-1.00); GLUCOSE 109 mg/dl (70-220); POTASSIUM 4.1 mmol/L (3.5-5.1); SODIUM 141 mmol/L (135-144); TOTAL PROTEIN 8.5 g/dl (6.1-8.1)
[2017-06-21 10:46] LABS: LACTIC ACID 1.2 mmol/L (0.5-2.0)
[2017-06-21 11:00] LABS: TROPONIN-I < 0.012 ng/ml (0.00-0.12)
[2017-06-21 13:38] LABS: LACTIC ACID 0.9 mmol/L (0.5-2.0)
[2017-06-21] MEDS: morphine 10 MG INJ IV ×3 (13:44→21:48)
[2017-06-21] MEDS: DIPHENHYDRAMINE 50 MG INJ IV ×3 (13:44→21:48)
[2017-06-21] MEDS: SOD CHLORIDE 0.45% 1,000 ML IV (14:01)
[2017-06-21] MEDS: ONDANSETRON 4 MG INJ IV (21:53)
[2017-06-22] MEDS: DIPHENHYDRAMINE 50 MG INJ IV ×6 (01:47→21:48)
[2017-06-22] MEDS: morphine 10 MG INJ IV ×6 (01:47→21:48)
[2017-06-22] MEDS: SOD CHLORIDE 0.45% 1,000 ML IV ×2 (01:52→17:48)
[2017-06-22 06:10] LABS: ADD MAN DIFF? NO
[2017-06-22 06:28] LABS: WHITE BLOOD COUNT 23.7 10^3/ul (4.8-10.8)
[2017-06-22 06:28] LABS: HEMATOCRIT 23.8 % (37.0-47.0); MEAN CORPUSCULAR HEMOGLOBIN 30.4 pg (29.0-33.0); MEAN CORPUSCULAR HGB CONC 33.6 g/dl (32.0-37.0); MEAN CORPUSCULAR VOLUME 90.5 fl (82.0-101.0); RED BLOOD COUNT 2.63 10^6/ul (4.20-5.40)
[2017-06-22 06:29] LABS: BASOPHIL # 0.2 10^3/ul (0.0-0.1); BASOPHILS % 0.7 % (0.0-2.0); EOSINOPHILS # 0.5 10^3/ul (0.0-0.5); EOSINOPHILS % 2.1 % (0.0-7.0); LYMPHOCYTES # 3.6 10^3/ul (0.8-2.9); MEAN PLATELET VOLUME 10.3 fl (7.4-10.4); MONOCYTE # 1.4 10^3/ul (0.3-0.9); MONOCYTES % 5.9 % (0.0-11.0); NEUTROPHIL # 17.7 10^3/ul (1.6-7.5); NEUTROPHILS % 74.7 % (39.0-77.0); NUCLEATED RED BLOOD CELLS # 0.1 10^3/ul (0.0-0.0); NUCLEATED RED BLOOD CELLS% 0.5 /100WBC (0.0-0.0); PLATELET COUNT 374 10^3/UL (140-415); RED CELL DISTRIBUTION WIDTH 17.6 % (11.5-14.5)
[2017-06-22 07:02] LABS: ANION GAP 13 (8-16); BLOOD UREA NITROGEN 12 mg/dl (7-20); CALCIUM 8.5 mg/dl (8.4-10.2); CARBON DIOXIDE 25 mmol/L (21-31); CHLORIDE 104 mmol/L (97-110); CREATININE 0.76 mg/dl (0.44-1.00); GLUCOSE 112 mg/dl (70-220); POTASSIUM 4.3 mmol/L (3.5-5.1); SODIUM 138 mmol/L (135-144)
[2017-06-22] MEDS: LEVOFLOXACIN 500MG/D5W (PMX) 100 ML IVPB (12:26)
[2017-06-22] MEDS: ONDANSETRON 4 MG INJ IV (14:06)
[2017-06-22] MEDS: MEROPENEM 1 GM/50ML(PMX) 50 ML IVPB (21:48)
[2017-06-23] MEDS: morphine 10 MG INJ IV ×6 (02:03→22:05)
[2017-06-23] MEDS: DIPHENHYDRAMINE 50 MG INJ IV ×6 (02:03→22:05)
[2017-06-23] MEDS: SOD CHLORIDE 0.45% 1,000 ML IV ×2 (05:00→10:59)
[2017-06-23] MEDS: MEROPENEM 1 GM/50ML(PMX) 50 ML IVPB ×3 (06:01→22:05)
[2017-06-23 07:30] LABS: MONOTEST Positive (NEG)
[2017-06-23] MEDS: ONDANSETRON 4 MG INJ IV (13:55)
[2017-06-24] MEDS: SOD CHLORIDE 0.45% 1,000 ML IV ×4 (00:08→20:20)
[2017-06-24] MEDS: morphine 10 MG INJ IV ×6 (02:07→21:55)
[2017-06-24] MEDS: DIPHENHYDRAMINE 50 MG INJ IV ×6 (02:07→21:55)
[2017-06-24] MEDS: MEROPENEM 1 GM/50ML(PMX) 50 ML IVPB ×3 (05:41→21:56)
[2017-06-24 06:10] LABS: ADD MAN DIFF? NO
[2017-06-24 06:13] LABS: ABNORMAL IP MESSAGE 1; BASOPHIL # 0.1 10^3/ul (0.0-0.1); BASOPHILS % 1.1 % (0.0-2.0); EOSINOPHILS # 1.1 10^3/ul (0.0-0.5); EOSINOPHILS % 8.9 % (0.0-7.0); HEMATOCRIT 21.9 % (37.0-47.0); HEMOGLOBIN 7.4 g/dl (12.0-16.0); LYMPHOCYTES # 4.1 10^3/ul (0.8-2.9); LYMPHOCYTES % 33.6 % (15.0-51.0); MEAN CORPUSCULAR HEMOGLOBIN 30.3 pg (29.0-33.0); MEAN CORPUSCULAR HGB CONC 33.8 g/dl (32.0-37.0); MEAN CORPUSCULAR VOLUME 89.8 fl (82.0-101.0); MEAN PLATELET VOLUME 10.3 fl (7.4-10.4); MONOCYTE # 1.6 10^3/ul (0.3-0.9); MONOCYTES % 12.7 % (0.0-11.0); NEUTROPHIL # 5.1 10^3/ul (1.6-7.5); NEUTROPHILS % 41.6 % (39.0-77.0); NUCLEATED RED BLOOD CELLS # 0.2 10^3/ul (0.0-0.0); NUCLEATED RED BLOOD CELLS% 1.3 /100WBC (0.0-0.0); PLATELET COUNT 369 10^3/UL (140-415); RED BLOOD COUNT 2.44 10^6/ul (4.20-5.40); RED CELL DISTRIBUTION WIDTH 17.7 % (11.5-14.5)
[2017-06-24 06:13] LABS: WHITE BLOOD COUNT 12.2 10^3/ul (4.8-10.8)
[2017-06-24 06:35] LABS: ANION GAP 11 (8-16); BLOOD UREA NITROGEN 7 mg/dl (7-20); CALCIUM 8.5 mg/dl (8.4-10.2); CARBON DIOXIDE 29 mmol/L (21-31); CHLORIDE 106 mmol/L (97-110); CREATININE 0.66 mg/dl (0.44-1.00); GLUCOSE 102 mg/dl (70-220); POTASSIUM 4.2 mmol/L (3.5-5.1); SODIUM 142 mmol/L (135-144)
[2017-06-24 06:52] LABS: POSITIVE DIFF @See below
[2017-06-24] MEDS: LINEZOLID 600 MG/D5W (PMX) 300 ML IVPB ×2 (11:47→20:20)
[2017-06-24] MEDS ORDERED: ALBUTEROL HFA 8 GM INHALER INH (17:00)
[2017-06-24] MEDS ORDERED: ONDANSETRON 4 MG TAB PO (17:00)
[2017-06-24] MEDS: ONDANSETRON 4 MG INJ IV ×2 (18:03→21:55)
[2017-06-24] MEDS: APIXABAN 5 MG TABLET PO (20:19)
[2017-06-24] MEDS: BACITRACIN 0.9 GM OINT TOP (20:20)
[2017-06-24] MEDS: HYDROXYUREA 500 MG CAP PO (20:28)
[2017-06-25] MEDS: ACETAMINOPHEN 325 MG TAB PO (00:40)
[2017-06-25] MEDS: DIPHENHYDRAMINE 50 MG INJ IV ×7 (00:40→21:43)
[2017-06-25 00:46] LABS: IMMEDIATE SPIN CROSSMATCH 1 2
[2017-06-25] MEDS: ONDANSETRON 4 MG INJ IV ×6 (01:57→21:43)
[2017-06-25] MEDS: morphine 10 MG INJ IV ×6 (01:57→21:43)
[2017-06-25] MEDS: MEROPENEM 1 GM/50ML(PMX) 50 ML IVPB ×4 (05:45→21:59)
[2017-06-25 06:14] LABS: ADD MAN DIFF? NO
[2017-06-25 06:18] LABS: WHITE BLOOD COUNT 11.2 10^3/ul (4.8-10.8)
[2017-06-25 06:18] LABS: BASOPHIL # 0.1 10^3/ul (0.0-0.1); BASOPHILS % 1.3 % (0.0-2.0); EOSINOPHILS # 0.8 10^3/ul (0.0-0.5); EOSINOPHILS % 7.4 % (0.0-7.0); HEMOGLOBIN 8.5 g/dl (12.0-16.0); LYMPHOCYTES # 3.8 10^3/ul (0.8-2.9); LYMPHOCYTES % 34.2 % (15.0-51.0); MEAN CORPUSCULAR HEMOGLOBIN 30.2 pg (29.0-33.0); MEAN PLATELET VOLUME 10.4 fl (7.4-10.4); MONOCYTE # 1.2 10^3/ul (0.3-0.9); MONOCYTES % 10.8 % (0.0-11.0); NEUTROPHILS % 44.8 % (39.0-77.0); NUCLEATED RED BLOOD CELLS # 0.2 10^3/ul (0.0-0.0); NUCLEATED RED BLOOD CELLS% 1.5 /100WBC (0.0-0.0); PLATELET COUNT 390 10^3/UL (140-415); RED BLOOD COUNT 2.81 10^6/ul (4.20-5.40); RED CELL DISTRIBUTION WIDTH 18.2 % (11.5-14.5)
[2017-06-25 06:40] LABS: ANION GAP 13 (8-16); BLOOD UREA NITROGEN 5 mg/dl (7-20); CALCIUM 8.7 mg/dl (8.4-10.2); CARBON DIOXIDE 29 mmol/L (21-31); CHLORIDE 101 mmol/L (97-110); CREATININE 0.64 mg/dl (0.44-1.00); GLUCOSE 104 mg/dl (70-220); SODIUM 139 mmol/L (135-144)
[2017-06-25] MEDS: APIXABAN 5 MG TABLET PO ×2 (09:43→20:33)
[2017-06-25] MEDS: SENNA TAB PO ×2 (09:43→20:33)
[2017-06-25] MEDS: FOLIC ACID 1 MG TAB PO (09:43)
[2017-06-25] MEDS: POLYETHYLENE GLYCOL 17 GM PACKET PO (09:44)
[2017-06-25] MEDS: BACITRACIN 0.9 GM OINT TOP ×2 (09:44→20:34)
[2017-06-25] MEDS: HYDROXYUREA 500 MG CAP PO ×2 (09:48→20:39)
[2017-06-25] MEDS: BISACODYL (EC) 5 MG TAB PO (09:54)
[2017-06-25] MEDS: LINEZOLID 600 MG/D5W (PMX) 300 ML IVPB ×2 (10:31→20:34)
[2017-06-25] MEDS: SOD CHLORIDE 0.45% 1,000 ML IV ×2 (16:37→22:02)
[2017-06-26] MEDS: DIPHENHYDRAMINE 50 MG INJ IV ×6 (01:48→21:41)
[2017-06-26] MEDS: ONDANSETRON 4 MG INJ IV ×4 (01:48→21:41)
[2017-06-26] MEDS: morphine 10 MG INJ IV ×6 (01:48→21:41)
[2017-06-26] MEDS: MEROPENEM 1 GM/50ML(PMX) 50 ML IVPB ×3 (05:49→22:37)
[2017-06-26 06:17] LABS: ADD MAN DIFF? NO
[2017-06-26 06:21] LABS: BASOPHIL # 0.1 10^3/ul (0.0-0.1); BASOPHILS % 0.6 % (0.0-2.0); EOSINOPHILS # 0.5 10^3/ul (0.0-0.5); EOSINOPHILS % 3.2 % (0.0-7.0); HEMATOCRIT 24.4 % (37.0-47.0); HEMOGLOBIN 8.3 g/dl (12.0-16.0); LYMPHOCYTES # 2.8 10^3/ul (0.8-2.9); LYMPHOCYTES % 17.6 % (15.0-51.0); MEAN CORPUSCULAR HEMOGLOBIN 30.5 pg (29.0-33.0); MEAN CORPUSCULAR VOLUME 89.7 fl (82.0-101.0); MEAN PLATELET VOLUME 10.1 fl (7.4-10.4); MONOCYTE # 0.7 10^3/ul (0.3-0.9); MONOCYTES % 4.3 % (0.0-11.0); NEUTROPHIL # 11.5 10^3/ul (1.6-7.5); NUCLEATED RED BLOOD CELLS # 0.3 10^3/ul (0.0-0.0); NUCLEATED RED BLOOD CELLS% 1.6 /100WBC (0.0-0.0); PLATELET COUNT 349 10^3/UL (140-415); RED BLOOD COUNT 2.72 10^6/ul (4.20-5.40); RED CELL DISTRIBUTION WIDTH 19.5 % (11.5-14.5)
[2017-06-26 06:48] LABS: ANION GAP 14 (8-16); BLOOD UREA NITROGEN 7 mg/dl (7-20); CALCIUM 8.3 mg/dl (8.4-10.2); CARBON DIOXIDE 29 mmol/L (21-31); CHLORIDE 101 mmol/L (97-110); CREATININE 0.68 mg/dl (0.44-1.00); GLUCOSE 89 mg/dl (70-220); POTASSIUM 4.2 mmol/L (3.5-5.1); SODIUM 140 mmol/L (135-144)
[2017-06-26] MEDS: SENNA TAB PO ×2 (09:52→20:33)
[2017-06-26] MEDS: APIXABAN 5 MG TABLET PO ×2 (09:53→20:33)
[2017-06-26] MEDS: HYDROXYUREA 500 MG CAP PO ×2 (09:53→20:44)
[2017-06-26] MEDS: FOLIC ACID 1 MG TAB PO (09:53)
[2017-06-26] MEDS: BACITRACIN 0.9 GM OINT TOP ×2 (09:54→20:34)
[2017-06-26] MEDS: POLYETHYLENE GLYCOL 17 GM PACKET PO (09:54)
[2017-06-26] MEDS: LINEZOLID 600 MG/D5W (PMX) 300 ML IVPB ×2 (09:54→20:34)
[2017-06-26] MEDS: SOD CHLORIDE 0.45% 1,000 ML IV (12:57)
[2017-06-26] MEDS: TOBRAMYCIN/DEXAMETH 2.5 ML OPH BOTH EYES ×2 (16:53→20:34)
[2017-06-27] MEDS: morphine 10 MG INJ IV ×6 (02:08→22:09)
[2017-06-27] MEDS: DIPHENHYDRAMINE 50 MG INJ IV ×6 (02:09→22:09)
[2017-06-27] MEDS: ONDANSETRON 4 MG INJ IV ×2 (02:09→05:55)
[2017-06-27] MEDS: MEROPENEM 1 GM/50ML(PMX) 50 ML IVPB ×3 (05:42→22:07)
[2017-06-27] MEDS: SOD CHLORIDE 0.45% 1,000 ML IV ×2 (05:43→08:57)
[2017-06-27 06:30] LABS: ADD MAN DIFF? NO
[2017-06-27 06:38] LABS: WHITE BLOOD COUNT 10.7 10^3/ul (4.8-10.8)
[2017-06-27 06:38] LABS: BASOPHIL # 0.1 10^3/ul (0.0-0.1); EOSINOPHILS # 0.7 10^3/ul (0.0-0.5); EOSINOPHILS % 6.7 % (0.0-7.0); HEMATOCRIT 24.6 % (37.0-47.0); HEMOGLOBIN 8.4 g/dl (12.0-16.0); LYMPHOCYTES % 37.1 % (15.0-51.0); MEAN CORPUSCULAR HEMOGLOBIN 30.3 pg (29.0-33.0); MEAN CORPUSCULAR HGB CONC 34.1 g/dl (32.0-37.0); MEAN CORPUSCULAR VOLUME 88.8 fl (82.0-101.0); MEAN PLATELET VOLUME 10.3 fl (7.4-10.4); MONOCYTE # 1.3 10^3/ul (0.3-0.9); MONOCYTES % 12.1 % (0.0-11.0); NEUTROPHIL # 4.6 10^3/ul (1.6-7.5); NEUTROPHILS % 42.4 % (39.0-77.0); NUCLEATED RED BLOOD CELLS # 0.2 10^3/ul (0.0-0.0); NUCLEATED RED BLOOD CELLS% 2.1 /100WBC (0.0-0.0); PLATELET COUNT 386 10^3/UL (140-415); RED BLOOD COUNT 2.77 10^6/ul (4.20-5.40); RED CELL DISTRIBUTION WIDTH 18.9 % (11.5-14.5)
[2017-06-27 06:56] LABS: ANION GAP 14 (8-16); BLOOD UREA NITROGEN 7 mg/dl (7-20); CALCIUM 8.8 mg/dl (8.4-10.2); CARBON DIOXIDE 31 mmol/L (21-31); CHLORIDE 99 mmol/L (97-110); CREATININE 0.75 mg/dl (0.44-1.00); GLUCOSE 111 mg/dl (70-220); POTASSIUM 4.1 mmol/L (3.5-5.1); SODIUM 140 mmol/L (135-144)
[2017-06-27] MEDS: LINEZOLID 600 MG/D5W (PMX) 300 ML IVPB ×2 (08:52→23:24)
[2017-06-27] MEDS: APIXABAN 5 MG TABLET PO ×2 (08:52→22:08)
[2017-06-27] MEDS: FOLIC ACID 1 MG TAB PO (08:52)
[2017-06-27] MEDS: POLYETHYLENE GLYCOL 17 GM PACKET PO (08:52)
[2017-06-27] MEDS: SENNA TAB PO ×2 (08:52→21:00)
[2017-06-27] MEDS: TOBRAMYCIN/DEXAMETH 2.5 ML OPH BOTH EYES ×2 (08:53→22:09)
[2017-06-27] MEDS: HYDROXYUREA 500 MG CAP PO ×2 (09:00→22:21)
[2017-06-27] MEDS: BACITRACIN 0.9 GM OINT TOP ×2 (09:00→22:09)
[2017-06-28] MEDS: DIPHENHYDRAMINE 50 MG INJ IV ×5 (03:56→20:04)
[2017-06-28] MEDS: morphine 10 MG INJ IV ×5 (03:56→20:04)
[2017-06-28] MEDS: SOD CHLORIDE 0.45% 1,000 ML IV ×2 (04:57→12:16)
[2017-06-28] MEDS: POLYETHYLENE GLYCOL 17 GM PACKET PO (08:22)
[2017-06-28] MEDS: SENNA TAB PO ×2 (08:22→20:03)
[2017-06-28] MEDS: TOBRAMYCIN/DEXAMETH 2.5 ML OPH BOTH EYES ×2 (08:23→20:04)
[2017-06-28] MEDS: APIXABAN 5 MG TABLET PO ×2 (08:23→20:03)
[2017-06-28] MEDS: BACITRACIN 0.9 GM OINT TOP ×2 (08:23→21:00)
[2017-06-28] MEDS: FOLIC ACID 1 MG TAB PO (08:23)
[2017-06-28] MEDS: LINEZOLID 600 MG/D5W (PMX) 300 ML IVPB ×2 (08:26→21:00)
[2017-06-28] MEDS: HYDROXYUREA 500 MG CAP PO ×2 (09:57→20:20)
[2017-06-28 11:04] LABS: ADD MAN DIFF? NO
[2017-06-28 11:09] LABS: BASOPHIL # 0.1 10^3/ul (0.0-0.1); BASOPHILS % 1.1 % (0.0-2.0); EOSINOPHILS # 0.8 10^3/ul (0.0-0.5); EOSINOPHILS % 7.2 % (0.0-7.0); HEMATOCRIT 23.2 % (37.0-47.0); HEMOGLOBIN 7.9 g/dl (12.0-16.0); LYMPHOCYTES # 3.8 10^3/ul (0.8-2.9); LYMPHOCYTES % 36.2 % (15.0-51.0); MEAN CORPUSCULAR HEMOGLOBIN 30.4 pg (29.0-33.0); MEAN CORPUSCULAR HGB CONC 34.1 g/dl (32.0-37.0); MEAN CORPUSCULAR VOLUME 89.2 fl (82.0-101.0); MEAN PLATELET VOLUME 9.9 fl (7.4-10.4); MONOCYTE # 1.2 10^3/ul (0.3-0.9); MONOCYTES % 11.3 % (0.0-11.0); NEUTROPHIL # 4.6 10^3/ul (1.6-7.5); NEUTROPHILS % 43.5 % (39.0-77.0); NUCLEATED RED BLOOD CELLS # 0.1 10^3/ul (0.0-0.0); NUCLEATED RED BLOOD CELLS% 1.1 /100WBC (0.0-0.0); PLATELET COUNT 314 10^3/UL (140-415); RED CELL DISTRIBUTION WIDTH 17.6 % (11.5-14.5)
[2017-06-28 11:09] LABS: WHITE BLOOD COUNT 10.6 10^3/ul (4.8-10.8)
[2017-06-28 11:29] LABS: ANION GAP 14 (8-16); BLOOD UREA NITROGEN 9 mg/dl (7-20); CALCIUM 8.4 mg/dl (8.4-10.2); CARBON DIOXIDE 27 mmol/L (21-31); CHLORIDE 99 mmol/L (97-110); CREATININE 0.69 mg/dl (0.44-1.00); GLUCOSE 116 mg/dl (70-220); POTASSIUM 4.8 mmol/L (3.5-5.1); SODIUM 135 mmol/L (135-144)
[2017-06-28] MEDS: CLOTRIMAZOLE 1% 30 GM CR TOP ×2 (16:09→20:03)
[2017-06-28] MEDS: MAGNESIUM CITRATE 300 ML BTL PO (17:30)
[2017-06-29] MEDS: DIPHENHYDRAMINE 50 MG INJ IV ×6 (00:04→21:37)
[2017-06-29] MEDS: morphine 10 MG INJ IV ×6 (00:04→21:37)
[2017-06-29] MEDS: ONDANSETRON 4 MG INJ IV ×3 (05:48→21:37)
[2017-06-29 06:10] LABS: ADD MAN DIFF? NO
[2017-06-29 06:24] LABS: WHITE BLOOD COUNT 10.8 10^3/ul (4.8-10.8)
[2017-06-29 06:24] LABS: BASOPHIL # 0.1 10^3/ul (0.0-0.1); EOSINOPHILS # 0.9 10^3/ul (0.0-0.5); EOSINOPHILS % 8.2 % (0.0-7.0); HEMATOCRIT 25.4 % (37.0-47.0); HEMOGLOBIN 8.5 g/dl (12.0-16.0); LYMPHOCYTES # 4.1 10^3/ul (0.8-2.9); LYMPHOCYTES % 38.2 % (15.0-51.0); MEAN CORPUSCULAR HGB CONC 33.5 g/dl (32.0-37.0); MEAN CORPUSCULAR VOLUME 89.8 fl (82.0-101.0); MEAN PLATELET VOLUME 10.1 fl (7.4-10.4); MONOCYTE # 1.5 10^3/ul (0.3-0.9); MONOCYTES % 13.8 % (0.0-11.0); NEUTROPHIL # 4.1 10^3/ul (1.6-7.5); NEUTROPHILS % 38.3 % (39.0-77.0); NUCLEATED RED BLOOD CELLS # 0.1 10^3/ul (0.0-0.0); NUCLEATED RED BLOOD CELLS% 0.9 /100WBC (0.0-0.0); PLATELET COUNT 362 10^3/UL (140-415); RED BLOOD COUNT 2.83 10^6/ul (4.20-5.40); RED CELL DISTRIBUTION WIDTH 17.1 % (11.5-14.5)
[2017-06-29 06:39] LABS: ANION GAP 15 (8-16); BLOOD UREA NITROGEN 14 mg/dl (7-20); CALCIUM 8.8 mg/dl (8.4-10.2); CARBON DIOXIDE 30 mmol/L (21-31); CHLORIDE 99 mmol/L (97-110); CREATININE 0.74 mg/dl (0.44-1.00); GLUCOSE 106 mg/dl (70-220); POTASSIUM 5.3 mmol/L (3.5-5.1); SODIUM 139 mmol/L (135-144)
[2017-06-29] MEDS: CLOTRIMAZOLE 1% 30 GM CR TOP ×2 (09:00→21:40)
[2017-06-29] MEDS: LINEZOLID 600 MG/D5W (PMX) 300 ML IVPB ×2 (09:28→21:37)
[2017-06-29] MEDS: POLYETHYLENE GLYCOL 17 GM PACKET PO (09:30)
[2017-06-29] MEDS: HYDROXYUREA 500 MG CAP PO ×2 (09:39→21:51)
[2017-06-29] MEDS: APIXABAN 5 MG TABLET PO ×2 (09:39→21:40)
[2017-06-29] MEDS: FOLIC ACID 1 MG TAB PO (09:39)
[2017-06-29] MEDS: SENNA TAB PO ×2 (09:40→21:38)
[2017-06-29] MEDS: BACITRACIN 0.9 GM OINT TOP ×2 (09:40→21:37)
[2017-06-29] MEDS: TOBRAMYCIN/DEXAMETH 2.5 ML OPH BOTH EYES ×2 (09:42→21:38)
[2017-06-29] MEDS: NA POLYST SULFON 15 GM/60 ML BTL PO (14:28)
[2017-06-29] MEDS: SOD CHLORIDE 0.9% 100 ML (16:01)
[2017-06-29] MEDS: IOHEXOL 100 ML (16:01)
[2017-06-29] MEDS: SOD CHLORIDE 0.45% 1,000 ML IV (20:57)
[2017-06-30] MEDS: ONDANSETRON 4 MG INJ IV ×5 (01:44→22:18)
[2017-06-30] MEDS: morphine 10 MG INJ IV ×6 (01:44→22:17)
[2017-06-30] MEDS: DIPHENHYDRAMINE 50 MG INJ IV ×6 (01:44→22:18)
[2017-06-30] MEDS: SOD CHLORIDE 0.45% 1,000 ML IV (05:53)
[2017-06-30 06:02] LABS: ADD MAN DIFF? NO
[2017-06-30 06:05] LABS: ABNORMAL IP MESSAGE 1; BASOPHIL # 0.1 10^3/ul (0.0-0.1); BASOPHILS % 0.9 % (0.0-2.0); EOSINOPHILS # 0.9 10^3/ul (0.0-0.5); EOSINOPHILS % 8.4 % (0.0-7.0); HEMATOCRIT 25.1 % (37.0-47.0); HEMOGLOBIN 8.6 g/dl (12.0-16.0); LYMPHOCYTES # 3.9 10^3/ul (0.8-2.9); LYMPHOCYTES % 35.9 % (15.0-51.0); MEAN CORPUSCULAR HEMOGLOBIN 30.5 pg (29.0-33.0); MEAN CORPUSCULAR HGB CONC 34.3 g/dl (32.0-37.0); MEAN PLATELET VOLUME 9.8 fl (7.4-10.4); MONOCYTE # 1.6 10^3/ul (0.3-0.9); MONOCYTES % 14.4 % (0.0-11.0); NEUTROPHIL # 4.3 10^3/ul (1.6-7.5); NEUTROPHILS % 39.9 % (39.0-77.0); NUCLEATED RED BLOOD CELLS # 0.1 10^3/ul (0.0-0.0); NUCLEATED RED BLOOD CELLS% 0.6 /100WBC (0.0-0.0); PLATELET COUNT 357 10^3/UL (140-415); RED BLOOD COUNT 2.82 10^6/ul (4.20-5.40); RED CELL DISTRIBUTION WIDTH 16.9 % (11.5-14.5)
[2017-06-30 06:05] LABS: WHITE BLOOD COUNT 10.9 10^3/ul (4.8-10.8)
[2017-06-30 06:16] LABS: POSITIVE DIFF @See below
[2017-06-30 06:40] LABS: ANION GAP 15 (8-16); BLOOD UREA NITROGEN 12 mg/dl (7-20); CARBON DIOXIDE 29 mmol/L (21-31); CHLORIDE 99 mmol/L (97-110); CREATININE 0.63 mg/dl (0.44-1.00); GLUCOSE 109 mg/dl (70-220); POTASSIUM 4.6 mmol/L (3.5-5.1); SODIUM 138 mmol/L (135-144)
[2017-06-30] MEDS: BACITRACIN 0.9 GM OINT TOP ×2 (09:53→22:25)
[2017-06-30] MEDS: FOLIC ACID 1 MG TAB PO (09:53)
[2017-06-30] MEDS: SENNA TAB PO ×2 (09:53→22:22)
[2017-06-30] MEDS: APIXABAN 5 MG TABLET PO ×2 (09:53→22:22)
[2017-06-30] MEDS: POLYETHYLENE GLYCOL 17 GM PACKET PO (09:53)
[2017-06-30] MEDS: LINEZOLID 600 MG/D5W (PMX) 300 ML IVPB ×2 (09:55→22:26)
[2017-06-30] MEDS: HYDROXYUREA 500 MG CAP PO ×2 (09:59→22:24)
[2017-06-30] MEDS: CLOTRIMAZOLE 1% 30 GM CR TOP ×2 (10:00→22:16)
[2017-06-30] MEDS: TOBRAMYCIN/DEXAMETH 2.5 ML OPH BOTH EYES ×2 (10:01→22:16)
[2017-07-01] MEDS: DIPHENHYDRAMINE 50 MG INJ IV ×6 (02:12→22:51)
[2017-07-01] MEDS: morphine 10 MG INJ IV ×6 (02:13→22:51)
[2017-07-01] MEDS: SOD CHLORIDE 0.45% 1,000 ML IV (06:24)
[2017-07-01] MEDS: POLYETHYLENE GLYCOL 17 GM PACKET PO (09:00)
[2017-07-01] MEDS: SENNA TAB PO ×2 (09:00→21:00)
[2017-07-01] MEDS: FOLIC ACID 1 MG TAB PO (09:53)
[2017-07-01] MEDS: APIXABAN 5 MG TABLET PO ×2 (09:53→22:51)
[2017-07-01] MEDS: CLOTRIMAZOLE 1% 30 GM CR TOP ×2 (09:55→22:51)
[2017-07-01] MEDS: TOBRAMYCIN/DEXAMETH 2.5 ML OPH BOTH EYES ×2 (09:55→22:50)
[2017-07-01] MEDS: BACITRACIN 0.9 GM OINT TOP ×2 (09:55→22:52)
[2017-07-01] MEDS: LINEZOLID 600 MG/D5W (PMX) 300 ML IVPB (09:59)
[2017-07-01] MEDS: HYDROXYUREA 500 MG CAP PO ×2 (10:02→22:53)
[2017-07-01] MEDS: ONDANSETRON 4 MG INJ IV ×2 (10:23→23:06)
[2017-07-01] MEDS: PANTOPRAZOLE (EC) 40 MG TAB PO (10:57)
[2017-07-01] MEDS ORDERED: AL HYDROX/MG HYDROX/SIMETH 30 ML CUP PO (19:30)
[2017-07-02] MEDS: DIPHENHYDRAMINE 50 MG INJ IV ×6 (02:58→23:56)
[2017-07-02] MEDS: morphine 10 MG INJ IV ×6 (02:58→23:55)
[2017-07-02] MEDS: FOLIC ACID 1 MG TAB PO (08:59)
[2017-07-02] MEDS: APIXABAN 5 MG TABLET PO ×2 (08:59→19:59)
[2017-07-02] MEDS: BACITRACIN 0.9 GM OINT TOP ×2 (08:59→19:59)
[2017-07-02] MEDS: PANTOPRAZOLE (EC) 40 MG TAB PO (08:59)
[2017-07-02] MEDS: SENNA TAB PO ×2 (09:00→20:02)
[2017-07-02] MEDS: POLYETHYLENE GLYCOL 17 GM PACKET PO (09:00)
[2017-07-02] MEDS: HYDROXYUREA 500 MG CAP PO ×2 (09:02→19:59)
[2017-07-02] MEDS: CLOTRIMAZOLE 1% 30 GM CR TOP ×2 (09:02→20:03)
[2017-07-02] MEDS: TOBRAMYCIN/DEXAMETH 2.5 ML OPH BOTH EYES ×2 (09:02→20:03)
[2017-07-02] MEDS: SOD CHLORIDE 0.45% 1,000 ML IV (09:15)
[2017-07-02 11:55] LABS: ADD MAN DIFF? NO
[2017-07-02 11:58] LABS: WHITE BLOOD COUNT 13.1 10^3/ul (4.8-10.8)
[2017-07-02 11:58] LABS: BASOPHIL # 0.1 10^3/ul (0.0-0.1); BASOPHILS % 0.9 % (0.0-2.0); EOSINOPHILS # 0.4 10^3/ul (0.0-0.5); EOSINOPHILS % 3.4 % (0.0-7.0); HEMATOCRIT 23.4 % (37.0-47.0); HEMOGLOBIN 7.6 g/dl (12.0-16.0); LYMPHOCYTES # 3.3 10^3/ul (0.8-2.9); LYMPHOCYTES % 25.1 % (15.0-51.0); MEAN CORPUSCULAR HGB CONC 32.5 g/dl (32.0-37.0); MEAN CORPUSCULAR VOLUME 89.3 fl (82.0-101.0); MONOCYTE # 1.2 10^3/ul (0.3-0.9); MONOCYTES % 9.5 % (0.0-11.0); NEUTROPHIL # 7.9 10^3/ul (1.6-7.5); NEUTROPHILS % 60.5 % (39.0-77.0); NUCLEATED RED BLOOD CELLS # 0.1 10^3/ul (0.0-0.0); NUCLEATED RED BLOOD CELLS% 0.5 /100WBC (0.0-0.0); PLATELET COUNT 315 10^3/UL (140-415); RED BLOOD COUNT 2.62 10^6/ul (4.20-5.40); RED CELL DISTRIBUTION WIDTH 16.6 % (11.5-14.5)
[2017-07-02 12:15] LABS: ANION GAP 13 (8-16); BLOOD UREA NITROGEN 11 mg/dl (7-20); CALCIUM 8.8 mg/dl (8.4-10.2); CARBON DIOXIDE 29 mmol/L (21-31); CHLORIDE 103 mmol/L (97-110); GLUCOSE 91 mg/dl (70-220); POTASSIUM 4.6 mmol/L (3.5-5.1); SODIUM 140 mmol/L (135-144)
[2017-07-02] MEDS: SOD CHLORIDE 0.9% 250 ML IV* (16:07)
[2017-07-02 23:44] LABS: IMMEDIATE SPIN CROSSMATCH 1 1
[2017-07-03] MEDS: DIPHENHYDRAMINE 50 MG INJ IV ×5 (04:03→20:03)
[2017-07-03] MEDS: morphine 10 MG INJ IV ×5 (04:03→20:02)
[2017-07-03] MEDS: SOD CHLORIDE 0.45% 1,000 ML IV ×2 (04:57→17:33)
[2017-07-03] MEDS: POLYETHYLENE GLYCOL 17 GM PACKET PO (09:00)
[2017-07-03] MEDS: SENNA TAB PO ×2 (09:00→20:05)
[2017-07-03] MEDS: FOLIC ACID 1 MG TAB PO (09:31)
[2017-07-03] MEDS: APIXABAN 5 MG TABLET PO ×2 (09:31→20:01)
[2017-07-03] MEDS: BACITRACIN 0.9 GM OINT TOP ×2 (09:32→20:01)
[2017-07-03] MEDS: PANTOPRAZOLE (EC) 40 MG TAB PO (09:32)
[2017-07-03] MEDS: TOBRAMYCIN/DEXAMETH 2.5 ML OPH BOTH EYES ×2 (09:32→20:01)
[2017-07-03] MEDS: CLOTRIMAZOLE 1% 30 GM CR TOP ×2 (09:32→20:01)
[2017-07-03] MEDS: HYDROXYUREA 500 MG CAP PO ×2 (09:35→20:05)
[2017-07-03 10:59] LABS: ADD MAN DIFF? NO
[2017-07-03 11:12] LABS: BASOPHIL # 0.1 10^3/ul (0.0-0.1); BASOPHILS % 0.9 % (0.0-2.0); EOSINOPHILS # 0.6 10^3/ul (0.0-0.5); EOSINOPHILS % 4.7 % (0.0-7.0); HEMATOCRIT 25.3 % (37.0-47.0); HEMOGLOBIN 8.3 g/dl (12.0-16.0); LYMPHOCYTES # 2.4 10^3/ul (0.8-2.9); LYMPHOCYTES % 18.8 % (15.0-51.0); MEAN CORPUSCULAR HGB CONC 32.8 g/dl (32.0-37.0); MEAN CORPUSCULAR VOLUME 88.5 fl (82.0-101.0); MEAN PLATELET VOLUME 10.5 fl (7.4-10.4); MONOCYTE # 1.4 10^3/ul (0.3-0.9); MONOCYTES % 11.1 % (0.0-11.0); NEUTROPHIL # 8.3 10^3/ul (1.6-7.5); NEUTROPHILS % 63.9 % (39.0-77.0); NUCLEATED RED BLOOD CELLS # 0.1 10^3/ul (0.0-0.0); NUCLEATED RED BLOOD CELLS% 0.8 /100WBC (0.0-0.0); PLATELET COUNT 295 10^3/UL (140-415); RED BLOOD COUNT 2.86 10^6/ul (4.20-5.40); RED CELL DISTRIBUTION WIDTH 16.1 % (11.5-14.5)
[2017-07-03 11:34] LABS: ANION GAP 12 (8-16); BLOOD UREA NITROGEN 10 mg/dl (7-20); CALCIUM 8.8 mg/dl (8.4-10.2); CARBON DIOXIDE 30 mmol/L (21-31); CHLORIDE 101 mmol/L (97-110); CREATININE 0.58 mg/dl (0.44-1.00); GLUCOSE 112 mg/dl (70-220); POTASSIUM 4.1 mmol/L (3.5-5.1); SODIUM 139 mmol/L (135-144)
[2017-07-03] MEDS: ZOLPIDEM 5 MG TAB PO (23:42)
[2017-07-04] MEDS: morphine 10 MG INJ IV ×6 (00:01→20:33)
[2017-07-04] MEDS: DIPHENHYDRAMINE 50 MG INJ IV ×6 (04:31→20:33)
[2017-07-04] MEDS: TOBRAMYCIN/DEXAMETH 2.5 ML OPH BOTH EYES ×2 (08:40→20:33)
[2017-07-04] MEDS: PANTOPRAZOLE (EC) 40 MG TAB PO (08:41)
[2017-07-04] MEDS: FOLIC ACID 1 MG TAB PO (08:41)
[2017-07-04] MEDS: APIXABAN 5 MG TABLET PO ×2 (08:41→20:34)
[2017-07-04] MEDS: POLYETHYLENE GLYCOL 17 GM PACKET PO (08:41)
[2017-07-04] MEDS: HYDROXYUREA 500 MG CAP PO ×2 (08:56→20:39)
[2017-07-04] MEDS: SENNA TAB PO ×2 (09:00→20:34)
[2017-07-04] MEDS: CLOTRIMAZOLE 1% 30 GM CR TOP ×2 (09:34→20:33)
[2017-07-04] MEDS: BACITRACIN 0.9 GM OINT TOP ×2 (09:35→20:33)
[2017-07-04 12:37] LABS: ADD MAN DIFF? NO
[2017-07-04 12:38] LABS: BASOPHIL # 0.1 10^3/ul (0.0-0.1); BASOPHILS % 1.2 % (0.0-2.0); EOSINOPHILS # 0.6 10^3/ul (0.0-0.5); EOSINOPHILS % 6.5 % (0.0-7.0); LYMPHOCYTES # 3.4 10^3/ul (0.8-2.9); LYMPHOCYTES % 34.8 % (15.0-51.0); MEAN CORPUSCULAR HEMOGLOBIN 29.3 pg (29.0-33.0); MEAN CORPUSCULAR HGB CONC 33.3 g/dl (32.0-37.0); MEAN CORPUSCULAR VOLUME 87.9 fl (82.0-101.0); MEAN PLATELET VOLUME 9.9 fl (7.4-10.4); MONOCYTE # 1.3 10^3/ul (0.3-0.9); MONOCYTES % 12.9 % (0.0-11.0); NEUTROPHIL # 4.4 10^3/ul (1.6-7.5); NEUTROPHILS % 44.4 % (39.0-77.0); NUCLEATED RED BLOOD CELLS # 0.2 10^3/ul (0.0-0.0); NUCLEATED RED BLOOD CELLS% 1.7 /100WBC (0.0-0.0); PLATELET COUNT 270 10^3/UL (140-415); RED BLOOD COUNT 2.73 10^6/ul (4.20-5.40); RED CELL DISTRIBUTION WIDTH 16.4 % (11.5-14.5)
[2017-07-04 12:38] LABS: WHITE BLOOD COUNT 9.9 10^3/ul (4.8-10.8)
[2017-07-04 13:02] LABS: ANION GAP 14 (8-16); BLOOD UREA NITROGEN 9 mg/dl (7-20); CALCIUM 8.6 mg/dl (8.4-10.2); CARBON DIOXIDE 27 mmol/L (21-31); CHLORIDE 102 mmol/L (97-110); CREATININE 0.64 mg/dl (0.44-1.00); GLUCOSE 121 mg/dl (70-220); POTASSIUM 3.9 mmol/L (3.5-5.1); SODIUM 139 mmol/L (135-144)
[2017-07-04] MEDS: SOD CHLORIDE 0.45% 1,000 ML IV (18:24)
[2017-07-04] MEDS: ACETAMINOPHEN 325 MG TAB PO (20:42)
[2017-07-05] MEDS: morphine 10 MG INJ IV ×6 (00:31→20:44)
[2017-07-05] MEDS: DIPHENHYDRAMINE 50 MG INJ IV ×6 (00:31→20:44)
[2017-07-05] MEDS: ONDANSETRON 4 MG INJ IV ×2 (04:39→08:40)
[2017-07-05 05:46] LABS: ADD MAN DIFF? NO
[2017-07-05 05:53] LABS: HEMOGLOBIN 8.3 g/dl (12.0-16.0); MEAN CORPUSCULAR HEMOGLOBIN 29.3 pg (29.0-33.0); MEAN CORPUSCULAR HGB CONC 33.2 g/dl (32.0-37.0); MEAN CORPUSCULAR VOLUME 88.3 fl (82.0-101.0); MEAN PLATELET VOLUME 10.1 fl (7.4-10.4); NUCLEATED RED BLOOD CELLS% 3.3 /100WBC (0.0-0.0); PLATELET COUNT 307 10^3/UL (140-415); RED BLOOD COUNT 2.83 10^6/ul (4.20-5.40); RED CELL DISTRIBUTION WIDTH 16.6 % (11.5-14.5)
[2017-07-05 05:53] LABS: WHITE BLOOD COUNT 9.8 10^3/ul (4.8-10.8)
[2017-07-05 05:59] LABS: POSITIVE DIFF @See below
[2017-07-05 06:21] LABS: ANION GAP 14 (8-16); BLOOD UREA NITROGEN 9 mg/dl (7-20); CALCIUM 9.1 mg/dl (8.4-10.2); CARBON DIOXIDE 28 mmol/L (21-31); CHLORIDE 103 mmol/L (97-110); CREATININE 0.72 mg/dl (0.44-1.00); GLUCOSE 102 mg/dl (70-220); SODIUM 141 mmol/L (135-144)
[2017-07-05 07:55] LABS: ANISOCYTOSIS 1+ (0-0); BASOPHILS % (M) 1 % (0-2); EOSINOPHILS % (M) 6 % (0-7); ERYTHROBLAST% (NRBC) (M) 5 % (0-0); HYPOCHROMASIA 3+ (0-0); LYMPHOCYTES #M 4.9 10^3/ul (0.8-2.9); LYMPHOCYTES % (M) 51 % (15-51); MONOCYTE #M 0.8 10^3/ul (0.3-0.9); MONOCYTES % (M) 9 % (0-11); PLATELET ESTIMATE NORMAL; POLYCHROMASIA 3+ (0-0); REACTIVE LYMPHOCYTES #M 0.1 10^3/ul (0.0-0.0); REACTIVE LYMPHOCYTES% (M) 2 % (0-0); SEGMENTED NEUTROPHILS (M) % 31 % (39-77); SICKLE CELL 1+ (0-0); SMUDGE%M 8 % (0-0)
[2017-07-05] MEDS: BACITRACIN 0.9 GM OINT TOP ×3 (09:00→21:03)
[2017-07-05] MEDS: APIXABAN 5 MG TABLET PO ×2 (10:13→21:00)
[2017-07-05] MEDS: PANTOPRAZOLE (EC) 40 MG TAB PO (10:13)
[2017-07-05] MEDS: SENNA TAB PO ×2 (10:14→21:01)
[2017-07-05] MEDS: FOLIC ACID 1 MG TAB PO (10:14)
[2017-07-05] MEDS: TOBRAMYCIN/DEXAMETH 2.5 ML OPH BOTH EYES ×2 (10:15→21:04)
[2017-07-05] MEDS: POLYETHYLENE GLYCOL 17 GM PACKET PO (10:15)
[2017-07-05] MEDS: CLOTRIMAZOLE 1% 30 GM CR TOP (10:15)
[2017-07-05] MEDS: HYDROXYUREA 500 MG CAP PO ×2 (10:15→21:02)
[2017-07-05] MEDS: SOD CHLORIDE 0.45% 1,000 ML IV (16:57)
[2017-07-05] MEDS: HEPARIN (100 UNITS/ML) 5 ML SYG CATHETER (21:07)
== END 2017-07-05 21:55 | disposition home or self-care (01) | DRG 871 ==
LOC: MS2 06-22 13:39 → E/R 09:02 → MS3 11:19 → MS2 06-22 20:55
PROC: 30233N1 Transfusion of Nonautologous Red Blood Cells into Peripheral Vein, Percutaneous Approach (ICD-10-PCS; principal; 2017-06-25)
DX: A41.9 Sepsis, unspecified organism (principal); D57.00 Hb-SS disease with crisis, unspecified; N39.0 Urinary tract infection, site not specified; D63.8 Anemia in other chronic diseases classified elsewhere; J02.9 Acute pharyngitis, unspecified; J06.9 Acute upper respiratory infection, unspecified; H10.9 Unspecified conjunctivitis
CPT/HCPCS: 36415; 36430; 71045; 71275; 76536; 80048; 80053; 81003; 83605; 84484; 85025; 86308; 86850; 86900; 86901; 86920; 87040; 87070; 87081; 87086; 87430; 87880; 96365; 96375; 99217; 99285-25

== ENCOUNTER 2017-07-13 02:06 | Inpatient (IN) | payer OTHER ==
[2017-07-13 04:04] LABS: ADD MAN DIFF? NO
[2017-07-13 04:24] LABS: LACTIC ACID 1.4 mmol/L (0.5-2.0)
[2017-07-13 04:26] LABS: PROTIME 15.4 Sec (11.9-14.9); PT RATIO 1.2
[2017-07-13] MEDS: SOD CHLORIDE 0.9% IV (04:28)
[2017-07-13 04:29] LABS: ALANINE AMINOTRANSFERASE 236 IU/L (13-69); ALBUMIN 3.8 g/dl (3.3-4.9); ALBUMIN/GLOBULIN RATIO 0.92; ALKALINE PHOSPHATASE 137 IU/L (42-121); ANION GAP 16 (8-16); ASPARTATE AMINO TRANSFERASE 315 IU/L (15-46); BILIRUBIN,INDIRECT 1.8 mg/dl (0-1.1); BILIRUBIN,TOTAL 1.8 mg/dl (0.2-1.3); BLOOD UREA NITROGEN 15 mg/dl (7-20); CALCIUM 8.3 mg/dl (8.4-10.2); CARBON DIOXIDE 27 mmol/L (21-31); CHLORIDE 105 mmol/L (97-110); CREATININE 0.75 mg/dl (0.44-1.00); GLUCOSE 118 mg/dl (70-220); POTASSIUM 3.9 mmol/L (3.5-5.1); SODIUM 144 mmol/L (135-144); TOTAL PROTEIN 7.9 g/dl (6.1-8.1); URINE BLOOD (Dip) POC Negative (NEGATIVE); URINE GLUCOSE (Dip) POC Negative (NEGATIVE); URINE KETONES (Dip) POC Negative (NEGATIVE); URINE LEUKOCYTE EST (Dip) POC Negative (NEGATIVE); URINE NITRITE (Dip) POC Negative (NEGATIVE); URINE TOTAL PROTEIN POC Trace (NEGATIVE)
[2017-07-13 04:29] LABS: URINE PH (Dip) POC 5.5 (5.0-8.5)
[2017-07-13 04:30] LABS: WHITE BLOOD COUNT 17.2 10^3/ul (4.8-10.8)
[2017-07-13 04:30] LABS: ABNORMAL IP MESSAGE 1; BASOPHIL # 0.2 10^3/ul (0.0-0.1); BASOPHILS % 0.9 % (0.0-2.0); EOSINOPHILS # 0.2 10^3/ul (0.0-0.5); EOSINOPHILS % 1.2 % (0.0-7.0); HEMATOCRIT 24.9 % (37.0-47.0); HEMOGLOBIN 8.3 g/dl (12.0-16.0); LYMPHOCYTES % 11.3 % (15.0-51.0); MEAN CORPUSCULAR HGB CONC 33.3 g/dl (32.0-37.0); MEAN CORPUSCULAR VOLUME 89.9 fl (82.0-101.0); MEAN PLATELET VOLUME 10.8 fl (7.4-10.4); MONOCYTE # 1.6 10^3/ul (0.3-0.9); MONOCYTES % 9.4 % (0.0-11.0); NEUTROPHIL # 12.9 10^3/ul (1.6-7.5); NUCLEATED RED BLOOD CELLS # 0.4 10^3/ul (0.0-0.0); NUCLEATED RED BLOOD CELLS% 2.3 /100WBC (0.0-0.0); PLATELET COUNT 320 10^3/UL (140-415); RED BLOOD COUNT 2.77 10^6/ul (4.20-5.40); RED CELL DISTRIBUTION WIDTH 18.7 % (11.5-14.5)
[2017-07-13 04:33] LABS: POSITIVE DIFF @See below
[2017-07-13 04:47] LABS: ETHANOL < 10.0 mg/dl
[2017-07-13 04:53] LABS: PARTIAL THROMBOPLASTIN TIME 73.4 Sec (25.0-35.0)
[2017-07-13 05:00] LABS: TROPONIN-I 0.016 ng/ml (0.000-0.120)
[2017-07-13 05:20] LABS: ADD UMIC NO; UR ASCORBIC ACID NEGATIVE (NEGATIVE); UR BILIRUBIN (Dip) NEGATIVE (NEGATIVE); UR BLOOD (Dip) NEGATIVE (NEGATIVE); UR CLARITY CLEAR (CLEAR); UR COLOR YELLOW (YELLOW); UR GLUCOSE (Dip) NEGATIVE (NEGATIVE); UR KETONES (Dip) NEGATIVE (NEGATIVE); UR LEUKOCYTE ESTERASE (Dip) NEGATIVE Leu/ul (NEGATIVE); UR NITRITE (Dip) NEGATIVE (NEGATIVE); UR SPECIFIC GRAVITY (Dip) 1.012 (1.003-1.030); UR TOTAL PROTEIN (Dip) NEGATIVE (NEGATIVE); UR UROBILINOGEN (Dip) NEGATIVE (NEGATIVE)
[2017-07-13] MEDS: VANCOMYCIN 1 GM (PMX) 250 ML IVPB (05:21)
[2017-07-13] MEDS: morphine 2 MG INJ IV (05:21)
[2017-07-13] MEDS: ONDANSETRON 4 MG INJ IV ×2 (05:22→09:39)
[2017-07-13] MEDS: SOD CHLORIDE 0.9% 1,000 ML IV (05:38)
[2017-07-13 05:43] LABS: INR 1.15; PROTIME 14.9 Sec (11.9-14.9); PT RATIO 1.2; THYROID STIMULATING HORMONE 0.722 MIU/L (0.465-4.680)
[2017-07-13 05:44] LABS: PARTIAL THROMBOPLASTIN TIME 29.2 Sec (25.0-35.0)
[2017-07-13 06:34] LABS: LACTIC ACID 1.1 mmol/L (0.5-2.0)
[2017-07-13] MEDS: ACETAMINOPHEN 325 MG TAB PO ×2 (06:52→16:41)
[2017-07-13] MEDS: DIPHENHYDRAMINE 50 MG INJ IV (06:55)
[2017-07-13] MEDS: morphine 4 MG/ML VIAL IV ×5 (06:56→20:33)
[2017-07-13 08:37] LABS: LACTIC ACID 1.4 mmol/L (0.5-2.0)
[2017-07-13] MEDS: MEROPENEM 1 GM/50ML(PMX) 50 ML IVPB (09:46)
[2017-07-13 10:36] LABS: CANNABINOIDS Negative (NEGATIVE)
[2017-07-13 10:38] LABS: AMPHETAMINE/METHAMPHETAMINE Negative (NEGATIVE); BARBITURATES Negative (NEGATIVE); BENZODIAZEPINES Negative (NEGATIVE); COCAINE Negative (NEGATIVE); OPIATES Positive (NEGATIVE)
[2017-07-13] MEDS ORDERED: HYDROCODONE/APAP (5/325) TAB PO (12:30)
[2017-07-13] MEDS ORDERED: ALBUTEROL HFA 8 GM INHALER INH (12:30)
[2017-07-13 12:31] LABS: PHOSPHORUS 3.5 mg/dl (2.5-4.9)
[2017-07-13 12:31] LABS: ALANINE AMINOTRANSFERASE 186 IU/L (13-69); ALBUMIN 2.8 g/dl (3.3-4.9); ALKALINE PHOSPHATASE 102 IU/L (42-121); ASPARTATE AMINO TRANSFERASE 233 IU/L (15-46); BILIRUBIN,INDIRECT 1.3 mg/dl (0-1.1); BILIRUBIN,TOTAL 1.3 mg/dl (0.2-1.3); LIPASE 137 U/L (23-300)
[2017-07-13] MEDS: DIPHENHYDRAMINE 25 MG CAP PO ×2 (13:01→20:30)
[2017-07-13] MEDS: DEXTROSE 5%-0.45% NACL 1,000 ML IV (14:05)
[2017-07-13] MEDS: APIXABAN 5 MG TABLET PO (20:35)
[2017-07-13] MEDS: HYDROXYUREA 500 MG CAP PO (23:51)
[2017-07-14] MEDS: morphine 4 MG/ML VIAL IV ×6 (00:42→20:24)
[2017-07-14] MEDS: DIPHENHYDRAMINE 50 MG INJ IV ×5 (00:47→20:23)
[2017-07-14] MEDS: DEXTROSE 5%-0.45% NACL 1,000 ML IV ×2 (02:48→04:43)
[2017-07-14 05:21] LABS: ADD MAN DIFF? NO
[2017-07-14 05:26] LABS: BASOPHIL # 0.1 10^3/ul (0.0-0.1); BASOPHILS % 0.9 % (0.0-2.0); EOSINOPHILS # 0.7 10^3/ul (0.0-0.5); EOSINOPHILS % 5.1 % (0.0-7.0); HEMATOCRIT 22.8 % (37.0-47.0); HEMOGLOBIN 7.5 g/dl (12.0-16.0); LYMPHOCYTES # 2.6 10^3/ul (0.8-2.9); MEAN CORPUSCULAR HEMOGLOBIN 29.4 pg (29.0-33.0); MEAN CORPUSCULAR HGB CONC 32.9 g/dl (32.0-37.0); MEAN CORPUSCULAR VOLUME 89.4 fl (82.0-101.0); MEAN PLATELET VOLUME 10.9 fl (7.4-10.4); MONOCYTE # 1.3 10^3/ul (0.3-0.9); MONOCYTES % 10.2 % (0.0-11.0); NEUTROPHIL # 8.1 10^3/ul (1.6-7.5); NEUTROPHILS % 62.2 % (39.0-77.0); NUCLEATED RED BLOOD CELLS # 0.3 10^3/ul (0.0-0.0); NUCLEATED RED BLOOD CELLS% 2.2 /100WBC (0.0-0.0); PLATELET COUNT 236 10^3/UL (140-415); RED BLOOD COUNT 2.55 10^6/ul (4.20-5.40)
[2017-07-14 05:36] LABS: ANION GAP 13 (8-16); BLOOD UREA NITROGEN 8 mg/dl (7-20); CALCIUM 8.4 mg/dl (8.4-10.2); CARBON DIOXIDE 26 mmol/L (21-31); CHLORIDE 106 mmol/L (97-110); CREATININE 0.63 mg/dl (0.44-1.00); GLUCOSE 100 mg/dl (70-220); MAGNESIUM 1.6 mg/dl (1.7-2.5); POTASSIUM 4.7 mmol/L (3.5-5.1); SODIUM 140 mmol/L (135-144)
[2017-07-14 05:50] LABS: IRON 174 ug/dl (35-150)
[2017-07-14 05:59] LABS: % IRON SATURATION 82 % SAT (22-52); TOTAL IRON BINDING CAPACITY 213 ug/dl (241-421)
[2017-07-14] MEDS ORDERED: VANCOMYCIN IV PER PHARMACY XX (06:30)
[2017-07-14] MEDS ORDERED: VANCOMYCIN 1 GM 250 ML IVPB (08:00)
[2017-07-14] MEDS: FOLIC ACID 1 MG TAB PO (08:42)
[2017-07-14] MEDS: APIXABAN 5 MG TABLET PO ×2 (08:42→20:24)
[2017-07-14] MEDS ORDERED: VANCOMYCIN 1.5 GM in SOD CHLORIDE 0.9% 250 ML IVPB (09:00)
[2017-07-14] MEDS: VANCOMYCIN 1.25 GM in SOD CHLORIDE 0.9% 250 ML IVPB (10:14)
[2017-07-14] MEDS: HYDROXYUREA 500 MG CAP PO ×2 (10:19→20:27)
[2017-07-14] MEDS: VANCOMYCIN 1 GM 250 ML IVPB (17:29)
[2017-07-14] MEDS: ACETAMINOPHEN 325 MG TAB PO (21:15)
[2017-07-15] MEDS: DIPHENHYDRAMINE 50 MG INJ IV ×5 (00:23→20:43)
[2017-07-15] MEDS: morphine 4 MG/ML VIAL IV ×6 (00:23→20:30)
[2017-07-15] MEDS: VANCOMYCIN 1 GM 250 ML IVPB ×2 (01:44→09:32)
[2017-07-15 09:24] LABS: ADD MAN DIFF? NO
[2017-07-15 09:38] LABS: BASOPHIL # 0.1 10^3/ul (0.0-0.1); BASOPHILS % 0.8 % (0.0-2.0); EOSINOPHILS # 0.7 10^3/ul (0.0-0.5); EOSINOPHILS % 5.7 % (0.0-7.0); HEMATOCRIT 24.7 % (37.0-47.0); HEMOGLOBIN 8.1 g/dl (12.0-16.0); LYMPHOCYTES # 2.7 10^3/ul (0.8-2.9); LYMPHOCYTES % 21.8 % (15.0-51.0); MEAN CORPUSCULAR HEMOGLOBIN 28.8 pg (29.0-33.0); MEAN CORPUSCULAR HGB CONC 32.8 g/dl (32.0-37.0); MEAN CORPUSCULAR VOLUME 87.9 fl (82.0-101.0); MEAN PLATELET VOLUME 11.2 fl (7.4-10.4); MONOCYTE # 1.3 10^3/ul (0.3-0.9); NEUTROPHIL # 7.5 10^3/ul (1.6-7.5); NEUTROPHILS % 60.3 % (39.0-77.0); NUCLEATED RED BLOOD CELLS # 0.5 10^3/ul (0.0-0.0); NUCLEATED RED BLOOD CELLS% 4.2 /100WBC (0.0-0.0); PLATELET COUNT 254 10^3/UL (140-415); RED BLOOD COUNT 2.81 10^6/ul (4.20-5.40); RED CELL DISTRIBUTION WIDTH 17.2 % (11.5-14.5)
[2017-07-15 09:38] LABS: WHITE BLOOD COUNT 12.5 10^3/ul (4.8-10.8)
[2017-07-15 09:55] LABS: ANION GAP 17 (8-16); BLOOD UREA NITROGEN 9 mg/dl (7-20); CALCIUM 8.2 mg/dl (8.4-10.2); CARBON DIOXIDE 24 mmol/L (21-31); CHLORIDE 105 mmol/L (97-110); CREATININE 0.65 mg/dl (0.44-1.00); GLUCOSE 102 mg/dl (70-220); POTASSIUM 4.5 mmol/L (3.5-5.1); SODIUM 141 mmol/L (135-144)
[2017-07-15 10:01] LABS: VANCOMYCIN,TROUGH 18.8 ug/ml (10.0-20.0)
[2017-07-15] MEDS: APIXABAN 5 MG TABLET PO ×2 (10:05→20:30)
[2017-07-15] MEDS: FOLIC ACID 1 MG TAB PO (10:05)
[2017-07-15] MEDS: DEXTROSE 5%-0.45% NACL 1,000 ML IV ×2 (10:06→21:42)
[2017-07-15] MEDS: HYDROXYUREA 500 MG CAP PO ×2 (10:08→20:37)
[2017-07-15] MEDS: VANCOMYCIN 750 MG in DEXTROSE 5% 150 ML IVPB (20:29)
[2017-07-15] MEDS ORDERED: morphine LIQ (10 MG/5 ML) CUP PO (20:31)
[2017-07-16] MEDS: morphine 4 MG/ML VIAL IV ×5 (00:38→21:34)
[2017-07-16] MEDS: ZOLPIDEM 5 MG TAB PO (00:39)
[2017-07-16] MEDS: DIPHENHYDRAMINE 50 MG INJ IV ×4 (00:46→21:31)
[2017-07-16] MEDS: VANCOMYCIN 750 MG in DEXTROSE 5% 150 ML IVPB ×3 (04:37→20:13)
[2017-07-16] MEDS: DEXTROSE 5%-0.45% NACL 1,000 ML IV (04:37)
[2017-07-16 05:22] LABS: ADD MAN DIFF? NO
[2017-07-16 05:29] LABS: ABNORMAL IP MESSAGE 1; BASOPHIL # 0.1 10^3/ul (0.0-0.1); BASOPHILS % 1.2 % (0.0-2.0); EOSINOPHILS # 0.9 10^3/ul (0.0-0.5); EOSINOPHILS % 8.6 % (0.0-7.0); HEMATOCRIT 24.1 % (37.0-47.0); HEMOGLOBIN 7.9 g/dl (12.0-16.0); LYMPHOCYTES # 4.2 10^3/ul (0.8-2.9); LYMPHOCYTES % 41.9 % (15.0-51.0); MEAN CORPUSCULAR HEMOGLOBIN 28.9 pg (29.0-33.0); MEAN CORPUSCULAR HGB CONC 32.8 g/dl (32.0-37.0); MEAN CORPUSCULAR VOLUME 88.3 fl (82.0-101.0); MEAN PLATELET VOLUME 10.7 fl (7.4-10.4); MONOCYTE # 1.5 10^3/ul (0.3-0.9); MONOCYTES % 15.3 % (0.0-11.0); NEUTROPHIL # 3.2 10^3/ul (1.6-7.5); NUCLEATED RED BLOOD CELLS # 0.6 10^3/ul (0.0-0.0); NUCLEATED RED BLOOD CELLS% 5.5 /100WBC (0.0-0.0); PLATELET COUNT 304 10^3/UL (140-415); RED BLOOD COUNT 2.73 10^6/ul (4.20-5.40); RED CELL DISTRIBUTION WIDTH 17.5 % (11.5-14.5)
[2017-07-16 05:43] LABS: POSITIVE DIFF @See below
[2017-07-16 05:46] LABS: ANION GAP 13 (8-16); BLOOD UREA NITROGEN 5 mg/dl (7-20); CALCIUM 8.2 mg/dl (8.4-10.2); CARBON DIOXIDE 28 mmol/L (21-31); CHLORIDE 104 mmol/L (97-110); CREATININE 0.53 mg/dl (0.44-1.00); GLUCOSE 120 mg/dl (70-220); POTASSIUM 4.4 mmol/L (3.5-5.1); SODIUM 141 mmol/L (135-144)
[2017-07-16] MEDS: HYDROXYUREA 500 MG CAP PO ×2 (09:00→20:17)
[2017-07-16] MEDS: FOLIC ACID 1 MG TAB PO (09:00)
[2017-07-16] MEDS: APIXABAN 5 MG TABLET PO ×2 (09:00→20:13)
[2017-07-16 19:50] LABS: VANCOMYCIN,TROUGH 14.4 ug/ml (10.0-20.0)
[2017-07-16] MEDS: ONDANSETRON 4 MG INJ IV (20:23)
[2017-07-16 22:22] LABS: IMMEDIATE SPIN CROSSMATCH 1 2
[2017-07-17] MEDS: MICONAZOLE 2% 45 GM VAG CR VAG ×2 (00:10→22:08)
[2017-07-17] MEDS: ACETAMINOPHEN 325 MG TAB PO (00:10)
[2017-07-17] MEDS: morphine 4 MG/ML VIAL IV ×6 (01:36→23:43)
[2017-07-17] MEDS: ONDANSETRON 4 MG INJ IV (01:37)
[2017-07-17] MEDS: DIPHENHYDRAMINE 50 MG INJ IV ×6 (01:37→23:42)
[2017-07-17] MEDS: ZOLPIDEM 5 MG TAB PO (03:07)
[2017-07-17] MEDS: VANCOMYCIN 750 MG in DEXTROSE 5% 150 ML IVPB ×3 (04:17→20:00)
[2017-07-17] MEDS: DEXTROSE 5%-0.45% NACL 1,000 ML IV ×2 (05:09→15:08)
[2017-07-17 08:05] LABS: ADD MAN DIFF? NO
[2017-07-17 08:06] LABS: WHITE BLOOD COUNT 9.3 10^3/ul (4.8-10.8)
[2017-07-17 08:06] LABS: BASOPHIL # 0.1 10^3/ul (0.0-0.1); BASOPHILS % 1.4 % (0.0-2.0); EOSINOPHILS # 0.8 10^3/ul (0.0-0.5); EOSINOPHILS % 8.3 % (0.0-7.0); HEMATOCRIT 28.9 % (37.0-47.0); HEMOGLOBIN 9.4 g/dl (12.0-16.0); LYMPHOCYTES # 3.6 10^3/ul (0.8-2.9); LYMPHOCYTES % 38.5 % (15.0-51.0); MEAN CORPUSCULAR HEMOGLOBIN 29.5 pg (29.0-33.0); MEAN CORPUSCULAR HGB CONC 32.5 g/dl (32.0-37.0); MEAN CORPUSCULAR VOLUME 90.6 fl (82.0-101.0); MONOCYTE # 1.4 10^3/ul (0.3-0.9); NEUTROPHIL # 3.3 10^3/ul (1.6-7.5); NEUTROPHILS % 35.8 % (39.0-77.0); NUCLEATED RED BLOOD CELLS # 0.2 10^3/ul (0.0-0.0); NUCLEATED RED BLOOD CELLS% 2.4 /100WBC (0.0-0.0); PLATELET COUNT 332 10^3/UL (140-415); RED BLOOD COUNT 3.19 10^6/ul (4.20-5.40); RED CELL DISTRIBUTION WIDTH 17.2 % (11.5-14.5)
[2017-07-17 08:25] LABS: LACTIC ACID 0.8 mmol/L (0.5-2.0)
[2017-07-17 08:27] LABS: ALANINE AMINOTRANSFERASE 115 IU/L (13-69); ALBUMIN 3.5 g/dl (3.3-4.9); ALBUMIN/GLOBULIN RATIO 0.92; ALKALINE PHOSPHATASE 117 IU/L (42-121); ANION GAP 13 (8-16); ASPARTATE AMINO TRANSFERASE 84 IU/L (15-46); BILIRUBIN,INDIRECT 1.5 mg/dl (0-1.1); BILIRUBIN,TOTAL 1.5 mg/dl (0.2-1.3); BLOOD UREA NITROGEN 10 mg/dl (7-20); CALCIUM 8.6 mg/dl (8.4-10.2); CARBON DIOXIDE 29 mmol/L (21-31); CHLORIDE 105 mmol/L (97-110); CREATININE 0.67 mg/dl (0.44-1.00); GLUCOSE 105 mg/dl (70-220); POTASSIUM 4.8 mmol/L (3.5-5.1); SODIUM 142 mmol/L (135-144); TOTAL PROTEIN 7.3 g/dl (6.1-8.1)
[2017-07-17] MEDS: POLYMYXIN/TRIMETHOPRIM 10 ML OPH LEFT EYE ×4 (10:45→22:08)
[2017-07-17] MEDS: HYDROXYUREA 500 MG CAP PO ×3 (10:48→22:55)
[2017-07-17] MEDS: FOLIC ACID 1 MG TAB PO (10:48)
[2017-07-17] MEDS: APIXABAN 5 MG TABLET PO ×2 (10:48→22:05)
[2017-07-18] MEDS: DIPHENHYDRAMINE 50 MG INJ IV ×5 (03:23→20:32)
[2017-07-18] MEDS: VANCOMYCIN 750 MG in DEXTROSE 5% 150 ML IVPB ×3 (04:00→20:34)
[2017-07-18 05:28] LABS: ADD MAN DIFF? NO
[2017-07-18 05:33] LABS: BASOPHIL # 0.1 10^3/ul (0.0-0.1); EOSINOPHILS # 0.7 10^3/ul (0.0-0.5); EOSINOPHILS % 5.9 % (0.0-7.0); HEMATOCRIT 30.8 % (37.0-47.0); HEMOGLOBIN 10.1 g/dl (12.0-16.0); LYMPHOCYTES # 4.1 10^3/ul (0.8-2.9); LYMPHOCYTES % 35.5 % (15.0-51.0); MEAN CORPUSCULAR HEMOGLOBIN 29.7 pg (29.0-33.0); MEAN CORPUSCULAR HGB CONC 32.8 g/dl (32.0-37.0); MEAN CORPUSCULAR VOLUME 90.6 fl (82.0-101.0); MEAN PLATELET VOLUME 10.8 fl (7.4-10.4); MONOCYTES % 8.3 % (0.0-11.0); NEUTROPHIL # 5.6 10^3/ul (1.6-7.5); NEUTROPHILS % 48.4 % (39.0-77.0); NUCLEATED RED BLOOD CELLS # 0.2 10^3/ul (0.0-0.0); NUCLEATED RED BLOOD CELLS% 1.5 /100WBC (0.0-0.0); PLATELET COUNT 353 10^3/UL (140-415); RED CELL DISTRIBUTION WIDTH 18.2 % (11.5-14.5)
[2017-07-18 05:33] LABS: WHITE BLOOD COUNT 11.6 10^3/ul (4.8-10.8)
[2017-07-18 05:51] LABS: ANION GAP 18 (8-16); BLOOD UREA NITROGEN 9 mg/dl (7-20); CALCIUM 8.9 mg/dl (8.4-10.2); CARBON DIOXIDE 28 mmol/L (21-31); CHLORIDE 101 mmol/L (97-110); CREATININE 0.65 mg/dl (0.44-1.00); GLUCOSE 138 mg/dl (70-220); POTASSIUM 4.1 mmol/L (3.5-5.1); SODIUM 143 mmol/L (135-144)
[2017-07-18] MEDS: morphine 4 MG/ML VIAL IV ×4 (08:15→20:32)
[2017-07-18] MEDS: POLYMYXIN/TRIMETHOPRIM 10 ML OPH LEFT EYE ×4 (08:15→20:33)
[2017-07-18 12:12] LABS: PROCALCITONIN 1.74 ng/mL (<0.10)
[2017-07-18] MEDS: APIXABAN 5 MG TABLET PO ×2 (12:36→20:35)
[2017-07-18] MEDS: HYDROXYUREA 500 MG CAP PO (12:37)
[2017-07-18] MEDS: FOLIC ACID 1 MG TAB PO (12:40)
[2017-07-18] MEDS: ONDANSETRON 4 MG TAB PO (16:27)
[2017-07-18] MEDS: DEXTROSE 5%-0.45% NACL 1,000 ML IV (16:28)
[2017-07-18] MEDS: MICONAZOLE 2% 45 GM VAG CR VAG (20:36)
[2017-07-18] MEDS: POLYMYXIN/TRIMETHOPRIM 10 ML OPH BOTH EYES (21:00)
[2017-07-19] MEDS: DIPHENHYDRAMINE 50 MG INJ IV ×6 (00:30→20:40)
[2017-07-19] MEDS: morphine 4 MG/ML VIAL IV ×6 (00:31→20:39)
[2017-07-19] MEDS: BISACODYL (EC) 5 MG TAB PO (01:20)
[2017-07-19] MEDS: POLYETHYLENE GLYCOL 17 GM PACKET PO ×3 (01:20→20:40)
[2017-07-19] MEDS: SENNA TAB PO ×3 (01:21→20:40)
[2017-07-19] MEDS: VANCOMYCIN 750 MG in DEXTROSE 5% 150 ML IVPB ×3 (04:46→21:29)
[2017-07-19 05:38] LABS: ALANINE AMINOTRANSFERASE 105 IU/L (13-69); ALBUMIN/GLOBULIN RATIO 0.88; ALKALINE PHOSPHATASE 157 IU/L (42-121); ANION GAP 18 (8-16); ASPARTATE AMINO TRANSFERASE 100 IU/L (15-46); BILIRUBIN,INDIRECT 1.4 mg/dl (0-1.1); BILIRUBIN,TOTAL 1.4 mg/dl (0.2-1.3); BLOOD UREA NITROGEN 13 mg/dl (7-20); CARBON DIOXIDE 27 mmol/L (21-31); CHLORIDE 102 mmol/L (97-110); CREATININE 0.83 mg/dl (0.44-1.00); GLUCOSE 108 mg/dl (70-220); POTASSIUM 4.6 mmol/L (3.5-5.1); SODIUM 142 mmol/L (135-144); TOTAL PROTEIN 8.5 g/dl (6.1-8.1)
[2017-07-19] MEDS: POLYMYXIN/TRIMETHOPRIM 10 ML OPH BOTH EYES ×4 (08:36→20:52)
[2017-07-19] MEDS: FOLIC ACID 1 MG TAB PO (08:36)
[2017-07-19] MEDS: HYDROXYUREA 500 MG CAP PO ×2 (08:38→20:46)
[2017-07-19] MEDS: APIXABAN 5 MG TABLET PO ×2 (08:39→20:40)
[2017-07-19 20:32] LABS: VANCOMYCIN,TROUGH 16.4 ug/ml (10.0-20.0)
[2017-07-19] MEDS: MICONAZOLE 2% 45 GM VAG CR VAG (20:52)
[2017-07-20] MEDS: DIPHENHYDRAMINE 50 MG INJ IV ×6 (00:40→20:19)
[2017-07-20] MEDS: morphine 4 MG/ML VIAL IV ×6 (00:41→20:20)
[2017-07-20] MEDS: VANCOMYCIN 750 MG in DEXTROSE 5% 150 ML IVPB ×3 (04:49→20:20)
[2017-07-20] MEDS: DEXTROSE 5%-0.45% NACL 1,000 ML IV (04:50)
[2017-07-20 05:49] LABS: ADD MAN DIFF? NO
[2017-07-20 05:53] LABS: WHITE BLOOD COUNT 12.1 10^3/ul (4.8-10.8)
[2017-07-20 05:53] LABS: BASOPHIL # 0.1 10^3/ul (0.0-0.1); BASOPHILS % 1.1 % (0.0-2.0); EOSINOPHILS # 0.9 10^3/ul (0.0-0.5); EOSINOPHILS % 7.2 % (0.0-7.0); HEMATOCRIT 31.1 % (37.0-47.0); HEMOGLOBIN 10.1 g/dl (12.0-16.0); LYMPHOCYTES # 4.5 10^3/ul (0.8-2.9); LYMPHOCYTES % 37.2 % (15.0-51.0); MEAN CORPUSCULAR HEMOGLOBIN 29.5 pg (29.0-33.0); MEAN CORPUSCULAR HGB CONC 32.5 g/dl (32.0-37.0); MEAN CORPUSCULAR VOLUME 90.9 fl (82.0-101.0); MEAN PLATELET VOLUME 10.4 fl (7.4-10.4); MONOCYTE # 1.3 10^3/ul (0.3-0.9); MONOCYTES % 11.1 % (0.0-11.0); NEUTROPHIL # 5.1 10^3/ul (1.6-7.5); NEUTROPHILS % 42.2 % (39.0-77.0); NUCLEATED RED BLOOD CELLS # 0.1 10^3/ul (0.0-0.0); NUCLEATED RED BLOOD CELLS% 1.2 /100WBC (0.0-0.0); PLATELET COUNT 335 10^3/UL (140-415); RED BLOOD COUNT 3.42 10^6/ul (4.20-5.40); RED CELL DISTRIBUTION WIDTH 17.7 % (11.5-14.5)
[2017-07-20 06:18] LABS: ANION GAP 17 (8-16); BLOOD UREA NITROGEN 15 mg/dl (7-20); CALCIUM 8.7 mg/dl (8.4-10.2); CARBON DIOXIDE 27 mmol/L (21-31); CHLORIDE 102 mmol/L (97-110); CREATININE 0.81 mg/dl (0.44-1.00); GLUCOSE 120 mg/dl (70-220); POTASSIUM 4.7 mmol/L (3.5-5.1); SODIUM 141 mmol/L (135-144)
[2017-07-20] MEDS: SENNA TAB PO ×2 (08:29→20:29)
[2017-07-20] MEDS: POLYETHYLENE GLYCOL 17 GM PACKET PO ×2 (08:29→20:30)
[2017-07-20] MEDS: POLYMYXIN/TRIMETHOPRIM 10 ML OPH BOTH EYES ×4 (08:29→20:29)
[2017-07-20] MEDS: FOLIC ACID 1 MG TAB PO (08:29)
[2017-07-20] MEDS: APIXABAN 5 MG TABLET PO ×2 (08:29→20:29)
[2017-07-20] MEDS: HYDROXYUREA 500 MG CAP PO ×2 (08:32→20:39)
[2017-07-20] MEDS: MICONAZOLE 2% 45 GM VAG CR VAG (20:31)
[2017-07-21] MEDS: DIPHENHYDRAMINE 50 MG INJ IV ×6 (00:21→21:29)
[2017-07-21] MEDS: morphine 4 MG/ML VIAL IV ×6 (00:21→21:28)
[2017-07-21 01:10] LABS: ADD UMIC NO; UR ASCORBIC ACID NEGATIVE (NEGATIVE); UR BILIRUBIN (Dip) NEGATIVE (NEGATIVE); UR BLOOD (Dip) NEGATIVE (NEGATIVE); UR CLARITY SLIGHTLY CLOUDY (CLEAR); UR COLOR YELLOW (YELLOW); UR GLUCOSE (Dip) NEGATIVE (NEGATIVE); UR KETONES (Dip) NEGATIVE (NEGATIVE); UR LEUKOCYTE ESTERASE (Dip) NEGATIVE Leu/ul (NEGATIVE); UR NITRITE (Dip) NEGATIVE (NEGATIVE); UR RBC 1 /HPF (0-5); UR SPECIFIC GRAVITY (Dip) 1.009 (1.003-1.030); UR SQUAMOUS EPITHELIAL CELL FEW /HPF (FEW); UR TOTAL PROTEIN (Dip) NEGATIVE (NEGATIVE); UR UROBILINOGEN (Dip) NEGATIVE (NEGATIVE); UR WBC 2 /HPF (0-5)
[2017-07-21] MEDS: VANCOMYCIN 750 MG in DEXTROSE 5% 150 ML IVPB ×2 (04:24→12:50)
[2017-07-21] MEDS: DEXTROSE 5%-0.45% NACL 1,000 ML IV (05:36)
[2017-07-21] MEDS: POLYETHYLENE GLYCOL 17 GM PACKET PO ×2 (08:17→21:29)
[2017-07-21] MEDS: FOLIC ACID 1 MG TAB PO (08:17)
[2017-07-21] MEDS: SENNA TAB PO ×2 (08:17→21:29)
[2017-07-21] MEDS: POLYMYXIN/TRIMETHOPRIM 10 ML OPH BOTH EYES ×4 (08:18→21:29)
[2017-07-21] MEDS: APIXABAN 5 MG TABLET PO ×2 (08:18→21:29)
[2017-07-21] MEDS: HYDROXYUREA 500 MG CAP PO ×2 (08:18→21:31)
[2017-07-21] MEDS: MICONAZOLE 2% 45 GM VAG CR VAG (21:32)
[2017-07-22] MEDS: VANCOMYCIN 750 MG in DEXTROSE 5% 150 ML IVPB ×4 (00:08→23:23)
[2017-07-22] MEDS: DIPHENHYDRAMINE 50 MG INJ IV ×6 (01:16→20:43)
[2017-07-22] MEDS: morphine 4 MG/ML VIAL IV ×6 (01:34→20:44)
[2017-07-22] MEDS: DEXTROSE 5%-0.45% NACL 1,000 ML IV ×2 (06:12→13:36)
[2017-07-22] MEDS: POLYETHYLENE GLYCOL 17 GM PACKET PO ×2 (08:49→20:43)
[2017-07-22] MEDS: SENNA TAB PO ×2 (08:50→20:43)
[2017-07-22] MEDS: APIXABAN 5 MG TABLET PO ×2 (08:50→20:42)
[2017-07-22] MEDS: HYDROXYUREA 500 MG CAP PO ×2 (08:50→20:43)
[2017-07-22] MEDS: FOLIC ACID 1 MG TAB PO (08:50)
[2017-07-22] MEDS: POLYMYXIN/TRIMETHOPRIM 10 ML OPH BOTH EYES ×4 (08:51→20:41)
[2017-07-22 10:45] LABS: ADD MAN DIFF? NO
[2017-07-22 10:48] LABS: WHITE BLOOD COUNT 12.3 10^3/ul (4.8-10.8)
[2017-07-22 10:48] LABS: BASOPHIL # 0.1 10^3/ul (0.0-0.1); BASOPHILS % 0.6 % (0.0-2.0); EOSINOPHILS # 0.5 10^3/ul (0.0-0.5); EOSINOPHILS % 4.1 % (0.0-7.0); HEMATOCRIT 28.2 % (37.0-47.0); HEMOGLOBIN 9.1 g/dl (12.0-16.0); LYMPHOCYTES % 24.6 % (15.0-51.0); MEAN CORPUSCULAR HEMOGLOBIN 29.4 pg (29.0-33.0); MEAN CORPUSCULAR HGB CONC 32.3 g/dl (32.0-37.0); MEAN CORPUSCULAR VOLUME 91.3 fl (82.0-101.0); MEAN PLATELET VOLUME 10.4 fl (7.4-10.4); MONOCYTE # 1.4 10^3/ul (0.3-0.9); MONOCYTES % 11.6 % (0.0-11.0); NEUTROPHIL # 7.1 10^3/ul (1.6-7.5); NEUTROPHILS % 57.8 % (39.0-77.0); NUCLEATED RED BLOOD CELLS # 0.1 10^3/ul (0.0-0.0); NUCLEATED RED BLOOD CELLS% 0.7 /100WBC (0.0-0.0); PLATELET COUNT 287 10^3/UL (140-415); RED BLOOD COUNT 3.09 10^6/ul (4.20-5.40); RED CELL DISTRIBUTION WIDTH 17.4 % (11.5-14.5)
[2017-07-22 11:38] LABS: ALANINE AMINOTRANSFERASE 108 IU/L (13-69); ALBUMIN 3.6 g/dl (3.3-4.9); ALKALINE PHOSPHATASE 146 IU/L (42-121); ASPARTATE AMINO TRANSFERASE 129 IU/L (15-46); TOTAL PROTEIN 7.6 g/dl (6.1-8.1)
[2017-07-22 11:40] LABS: ANION GAP 12 (8-16); BLOOD UREA NITROGEN 14 mg/dl (7-20); CALCIUM 8.7 mg/dl (8.4-10.2); CARBON DIOXIDE 27 mmol/L (21-31); CHLORIDE 105 mmol/L (97-110); CREATININE 0.81 mg/dl (0.44-1.00); GLUCOSE 101 mg/dl (70-220); POTASSIUM 5.1 mmol/L (3.5-5.1); SODIUM 139 mmol/L (135-144)
[2017-07-22 11:44] LABS: BILIRUBIN,TOTAL 1.7 mg/dl (0.2-1.3)
[2017-07-22 11:45] LABS: BILIRUBIN,INDIRECT 1.7 mg/dl (0-1.1)
[2017-07-22] MEDS: MICONAZOLE 2% 45 GM VAG CR VAG (20:46)
[2017-07-22 21:58] LABS: VANCOMYCIN,TROUGH 17.3 ug/ml (10.0-20.0)
[2017-07-23] MEDS: DIPHENHYDRAMINE 50 MG INJ IV ×6 (00:45→21:12)
[2017-07-23] MEDS: morphine 4 MG/ML VIAL IV ×7 (00:46→21:12)
[2017-07-23 05:55] LABS: ADD MAN DIFF? NO
[2017-07-23 06:11] LABS: WHITE BLOOD COUNT 10.8 10^3/ul (4.8-10.8)
[2017-07-23 06:11] LABS: ABNORMAL IP MESSAGE 1; BASOPHIL # 0.1 10^3/ul (0.0-0.1); EOSINOPHILS # 0.5 10^3/ul (0.0-0.5); EOSINOPHILS % 4.2 % (0.0-7.0); HEMATOCRIT 27.6 % (37.0-47.0); HEMOGLOBIN 8.9 g/dl (12.0-16.0); LYMPHOCYTES # 3.4 10^3/ul (0.8-2.9); LYMPHOCYTES % 31.6 % (15.0-51.0); MEAN CORPUSCULAR HEMOGLOBIN 29.4 pg (29.0-33.0); MEAN CORPUSCULAR HGB CONC 32.2 g/dl (32.0-37.0); MEAN CORPUSCULAR VOLUME 91.1 fl (82.0-101.0); MEAN PLATELET VOLUME 10.9 fl (7.4-10.4); MONOCYTE # 1.6 10^3/ul (0.3-0.9); MONOCYTES % 14.9 % (0.0-11.0); NEUTROPHIL # 5.1 10^3/ul (1.6-7.5); NEUTROPHILS % 47.1 % (39.0-77.0); NUCLEATED RED BLOOD CELLS # 0.1 10^3/ul (0.0-0.0); NUCLEATED RED BLOOD CELLS% 0.6 /100WBC (0.0-0.0); PLATELET COUNT 258 10^3/UL (140-415); RED BLOOD COUNT 3.03 10^6/ul (4.20-5.40)
[2017-07-23 06:19] LABS: POSITIVE DIFF @See below
[2017-07-23 06:25] LABS: BLOOD UREA NITROGEN 14 mg/dl (7-20); CALCIUM 8.7 mg/dl (8.4-10.2); CHLORIDE 105 mmol/L (97-110); CREATININE 0.81 mg/dl (0.44-1.00); GLUCOSE 100 mg/dl (70-220); POTASSIUM 4.7 mmol/L (3.5-5.1); SODIUM 142 mmol/L (135-144)
[2017-07-23 06:35] LABS: ANION GAP 14 (8-16)
[2017-07-23 06:38] LABS: CARBON DIOXIDE 28 mmol/L (21-31)
[2017-07-23] MEDS: APIXABAN 5 MG TABLET PO ×2 (09:05→21:08)
[2017-07-23] MEDS: SENNA TAB PO ×2 (09:05→21:08)
[2017-07-23] MEDS: FOLIC ACID 1 MG TAB PO (09:05)
[2017-07-23] MEDS: POLYMYXIN/TRIMETHOPRIM 10 ML OPH BOTH EYES ×2 (09:07→13:02)
[2017-07-23] MEDS: POLYETHYLENE GLYCOL 17 GM PACKET PO ×2 (09:07→21:11)
[2017-07-23] MEDS: VANCOMYCIN 750 MG in DEXTROSE 5% 150 ML IVPB (09:07)
[2017-07-23] MEDS: HYDROXYUREA 500 MG CAP PO ×2 (09:10→21:11)
[2017-07-23] MEDS: ONDANSETRON 4 MG TAB PO (15:06)
[2017-07-23] MEDS: VANCOMYCIN 500MG/NS (PMX) 100 ML IVPB (17:26)
[2017-07-23] MEDS: MICONAZOLE 2% 45 GM VAG CR VAG (21:12)
[2017-07-24] MEDS: VANCOMYCIN 500MG/NS (PMX) 100 ML IVPB ×3 (00:58→17:09)
[2017-07-24] MEDS: DIPHENHYDRAMINE 50 MG INJ IV ×6 (01:00→21:12)
[2017-07-24] MEDS: morphine 4 MG/ML VIAL IV ×6 (01:01→21:12)
[2017-07-24] MEDS: DEXTROSE 5%-0.45% NACL 1,000 ML IV (05:08)
[2017-07-24] MEDS: POLYMYXIN/TRIMETHOPRIM 10 ML OPH LEFT EYE (09:06)
[2017-07-24] MEDS: FOLIC ACID 1 MG TAB PO (09:06)
[2017-07-24] MEDS: APIXABAN 5 MG TABLET PO ×2 (09:06→21:14)
[2017-07-24] MEDS: POLYETHYLENE GLYCOL 17 GM PACKET PO ×2 (09:06→21:00)
[2017-07-24] MEDS: SENNA TAB PO ×2 (09:07→21:00)
[2017-07-24] MEDS: HYDROXYUREA 500 MG CAP PO ×2 (09:18→21:14)
[2017-07-25] MEDS: VANCOMYCIN 500MG/NS (PMX) 100 ML IVPB ×3 (00:55→20:12)
[2017-07-25] MEDS: morphine 4 MG/ML VIAL IV ×6 (00:55→20:22)
[2017-07-25] MEDS: DIPHENHYDRAMINE 50 MG INJ IV ×6 (01:00→20:23)
[2017-07-25 05:05] LABS: ADD MAN DIFF? NO
[2017-07-25 05:10] LABS: BASOPHIL # 0.1 10^3/ul (0.0-0.1); EOSINOPHILS # 0.3 10^3/ul (0.0-0.5); EOSINOPHILS % 3.2 % (0.0-7.0); HEMATOCRIT 25.3 % (37.0-47.0); HEMOGLOBIN 8.1 g/dl (12.0-16.0); LYMPHOCYTES # 2.3 10^3/ul (0.8-2.9); LYMPHOCYTES % 29.5 % (15.0-51.0); MEAN CORPUSCULAR HEMOGLOBIN 29.3 pg (29.0-33.0); MEAN CORPUSCULAR VOLUME 91.7 fl (82.0-101.0); MEAN PLATELET VOLUME 10.8 fl (7.4-10.4); MONOCYTE # 0.9 10^3/ul (0.3-0.9); MONOCYTES % 11.5 % (0.0-11.0); NEUTROPHIL # 4.2 10^3/ul (1.6-7.5); NEUTROPHILS % 53.6 % (39.0-77.0); NUCLEATED RED BLOOD CELLS% 0.4 /100WBC (0.0-0.0); PLATELET COUNT 220 10^3/UL (140-415); RED BLOOD COUNT 2.76 10^6/ul (4.20-5.40); RED CELL DISTRIBUTION WIDTH 17.6 % (11.5-14.5)
[2017-07-25 05:10] LABS: WHITE BLOOD COUNT 7.8 10^3/ul (4.8-10.8)
[2017-07-25 06:53] LABS: ANION GAP 13 (8-16); BLOOD UREA NITROGEN 14 mg/dl (7-20); CALCIUM 8.3 mg/dl (8.4-10.2); CARBON DIOXIDE 27 mmol/L (21-31); CHLORIDE 107 mmol/L (97-110); CREATININE 0.85 mg/dl (0.44-1.00); GLUCOSE 107 mg/dl (70-220); POTASSIUM 4.2 mmol/L (3.5-5.1); SODIUM 143 mmol/L (135-144)
[2017-07-25] MEDS: DEXTROSE 5%-0.45% NACL 1,000 ML IV ×2 (08:30→12:44)
[2017-07-25] MEDS: POLYETHYLENE GLYCOL 17 GM PACKET PO ×2 (09:00→20:25)
[2017-07-25] MEDS: SENNA TAB PO ×3 (09:00→21:00)
[2017-07-25] MEDS: POLYMYXIN/TRIMETHOPRIM 10 ML OPH LEFT EYE (09:00)
[2017-07-25] MEDS: APIXABAN 5 MG TABLET PO ×2 (09:00→20:26)
[2017-07-25] MEDS: HYDROXYUREA 500 MG CAP PO ×2 (09:00→20:26)
[2017-07-25] MEDS: FOLIC ACID 1 MG TAB PO (09:00)
[2017-07-25 09:06] LABS: VANCOMYCIN,TROUGH 13.9 ug/ml (10.0-20.0)
[2017-07-26] MEDS: morphine 4 MG/ML VIAL IV ×6 (00:30→20:10)
[2017-07-26] MEDS: DIPHENHYDRAMINE 50 MG INJ IV ×6 (00:30→20:11)
[2017-07-26] MEDS: VANCOMYCIN 500MG/NS (PMX) 100 ML IVPB ×3 (04:31→20:10)
[2017-07-26] MEDS: SENNA TAB PO ×2 (08:33→20:19)
[2017-07-26] MEDS: APIXABAN 5 MG TABLET PO ×2 (08:34→20:11)
[2017-07-26] MEDS: FOLIC ACID 1 MG TAB PO (08:34)
[2017-07-26] MEDS: POLYETHYLENE GLYCOL 17 GM PACKET PO ×2 (08:34→20:11)
[2017-07-26] MEDS: HYDROXYUREA 500 MG CAP PO ×2 (08:51→20:19)
[2017-07-26] MEDS: DEXTROSE 5%-0.45% NACL 1,000 ML IV (10:14)
[2017-07-26 21:00] LABS: ABNORMAL IP MESSAGE 1; HEMATOCRIT 25.9 % (37.0-47.0); HEMOGLOBIN 8.5 g/dl (12.0-16.0); MEAN CORPUSCULAR HEMOGLOBIN 30.1 pg (29.0-33.0); MEAN CORPUSCULAR HGB CONC 32.8 g/dl (32.0-37.0); MEAN CORPUSCULAR VOLUME 91.8 fl (82.0-101.0); MEAN PLATELET VOLUME 10.6 fl (7.4-10.4); NUCLEATED RED BLOOD CELLS% 0.6 /100WBC (0.0-0.0); PLATELET COUNT 300 10^3/UL (140-415); RED BLOOD COUNT 2.82 10^6/ul (4.20-5.40); RED CELL DISTRIBUTION WIDTH 17.5 % (11.5-14.5)
[2017-07-26 21:00] LABS: WHITE BLOOD COUNT 10.5 10^3/ul (4.8-10.8)
[2017-07-26 21:02] LABS: ADD MAN DIFF? YES; POSITIVE DIFF @See below
[2017-07-26 21:47] LABS: ANISOCYTOSIS 1+ (0-0); BASOPHIL #M 0.2 10^3/ul (0.0-0.0); BASOPHILS % (M) 2 % (0-2); EOSINOPHILS % (M) 5 % (0-7); ERYTHROBLAST% (NRBC) (M) 2 % (0-0); GIANT THROMBO% (M) 2 % (0-0); HYPOCHROMASIA 1+ (0-0); LYMPHOCYTES #M 5.4 10^3/ul (0.8-2.9); LYMPHOCYTES % (M) 52 % (15-51); MONOCYTE #M 0.6 10^3/ul (0.3-0.9); MONOCYTES % (M) 6 % (0-11); PLATELET ESTIMATE NORMAL; POLYCHROMASIA 2+ (0-0); SEGMENTED NEUTROPHILS (M) % 35 % (39-77); SICKLE CELL 1+ (0-0); SMUDGE%M 5 % (0-0)
[2017-07-27] MEDS: morphine 4 MG/ML VIAL IV ×6 (01:10→21:19)
[2017-07-27] MEDS: DIPHENHYDRAMINE 50 MG INJ IV ×6 (01:10→21:18)
[2017-07-27] MEDS: VANCOMYCIN 500MG/NS (PMX) 100 ML IVPB ×3 (04:29→20:14)
[2017-07-27 05:27] LABS: ADD MAN DIFF? NO
[2017-07-27 05:31] LABS: WHITE BLOOD COUNT 10.6 10^3/ul (4.8-10.8)
[2017-07-27 05:31] LABS: ABNORMAL IP MESSAGE 1; BASOPHIL # 0.1 10^3/ul (0.0-0.1); BASOPHILS % 1.1 % (0.0-2.0); EOSINOPHILS # 0.5 10^3/ul (0.0-0.5); EOSINOPHILS % 4.9 % (0.0-7.0); HEMATOCRIT 26.7 % (37.0-47.0); HEMOGLOBIN 8.4 g/dl (12.0-16.0); LYMPHOCYTES # 3.7 10^3/ul (0.8-2.9); LYMPHOCYTES % 34.7 % (15.0-51.0); MEAN CORPUSCULAR HEMOGLOBIN 28.9 pg (29.0-33.0); MEAN CORPUSCULAR HGB CONC 31.5 g/dl (32.0-37.0); MEAN CORPUSCULAR VOLUME 91.8 fl (82.0-101.0); MEAN PLATELET VOLUME 11.1 fl (7.4-10.4); MONOCYTE # 1.7 10^3/ul (0.3-0.9); MONOCYTES % 15.5 % (0.0-11.0); NEUTROPHIL # 4.6 10^3/ul (1.6-7.5); NEUTROPHILS % 43.2 % (39.0-77.0); NUCLEATED RED BLOOD CELLS% 0.3 /100WBC (0.0-0.0); PLATELET COUNT 342 10^3/UL (140-415); RED BLOOD COUNT 2.91 10^6/ul (4.20-5.40); RED CELL DISTRIBUTION WIDTH 17.5 % (11.5-14.5)
[2017-07-27 05:44] LABS: POSITIVE DIFF @See below
[2017-07-27 07:22] LABS: ALANINE AMINOTRANSFERASE 81 IU/L (13-69); ALBUMIN 3.5 g/dl (3.3-4.9); ALBUMIN/GLOBULIN RATIO 0.83; ALKALINE PHOSPHATASE 130 IU/L (42-121); ANION GAP 14 (8-16); ASPARTATE AMINO TRANSFERASE 84 IU/L (15-46); BLOOD UREA NITROGEN 12 mg/dl (7-20); CALCIUM 8.6 mg/dl (8.4-10.2); CARBON DIOXIDE 27 mmol/L (21-31); CHLORIDE 106 mmol/L (97-110); CREATININE 1.08 mg/dl (0.44-1.00); GLUCOSE 106 mg/dl (70-220); POTASSIUM 4.4 mmol/L (3.5-5.1); SODIUM 143 mmol/L (135-144); TOTAL PROTEIN 7.7 g/dl (6.1-8.1)
[2017-07-27] MEDS: DEXTROSE 5%-0.45% NACL 1,000 ML IV (08:30)
[2017-07-27] MEDS: SENNA TAB PO ×2 (09:00→21:18)
[2017-07-27] MEDS: HYDROXYUREA 500 MG CAP PO ×2 (09:02→21:23)
[2017-07-27] MEDS: POLYETHYLENE GLYCOL 17 GM PACKET PO ×2 (09:06→21:18)
[2017-07-27] MEDS: APIXABAN 5 MG TABLET PO ×2 (09:06→21:18)
[2017-07-27] MEDS: FOLIC ACID 1 MG TAB PO (09:06)
[2017-07-27] MEDS: PANTOPRAZOLE (EC) 40 MG TAB PO (11:54)
[2017-07-27 19:16] LABS: VANCOMYCIN,TROUGH 14.3 ug/ml (10.0-20.0)
[2017-07-28] MEDS: DIPHENHYDRAMINE 50 MG INJ IV ×6 (01:06→20:57)
[2017-07-28] MEDS: morphine 4 MG/ML VIAL IV ×6 (01:06→20:57)
[2017-07-28] MEDS: VANCOMYCIN 500MG/NS (PMX) 100 ML IVPB ×3 (04:46→20:13)
[2017-07-28] MEDS: PANTOPRAZOLE (EC) 40 MG TAB PO (05:03)
[2017-07-28] MEDS: DEXTROSE 5%-0.45% NACL 1,000 ML IV (05:16)
[2017-07-28 06:03] LABS: BLOOD UREA NITROGEN 14 mg/dl (7-20)
[2017-07-28 06:03] LABS: CREATININE 0.84 mg/dl (0.44-1.00)
[2017-07-28] MEDS: SENNA TAB PO ×2 (09:00→21:00)
[2017-07-28] MEDS: FOLIC ACID 1 MG TAB PO (09:15)
[2017-07-28] MEDS: APIXABAN 5 MG TABLET PO ×2 (09:15→22:21)
[2017-07-28] MEDS: POLYETHYLENE GLYCOL 17 GM PACKET PO ×2 (09:15→22:21)
[2017-07-28] MEDS: HYDROXYUREA 500 MG CAP PO ×2 (09:17→22:26)
[2017-07-28 15:38] LABS: ADD MAN DIFF? NO
[2017-07-28 15:41] LABS: WHITE BLOOD COUNT 10.8 10^3/ul (4.8-10.8)
[2017-07-28 15:41] LABS: BASOPHIL # 0.1 10^3/ul (0.0-0.1); BASOPHILS % 1.2 % (0.0-2.0); EOSINOPHILS # 0.4 10^3/ul (0.0-0.5); EOSINOPHILS % 4.1 % (0.0-7.0); HEMATOCRIT 24.9 % (37.0-47.0); LYMPHOCYTES # 3.6 10^3/ul (0.8-2.9); MEAN CORPUSCULAR HEMOGLOBIN 29.5 pg (29.0-33.0); MEAN CORPUSCULAR HGB CONC 32.1 g/dl (32.0-37.0); MEAN CORPUSCULAR VOLUME 91.9 fl (82.0-101.0); MONOCYTE # 1.2 10^3/ul (0.3-0.9); MONOCYTES % 11.1 % (0.0-11.0); NEUTROPHIL # 5.4 10^3/ul (1.6-7.5); NEUTROPHILS % 49.9 % (39.0-77.0); NUCLEATED RED BLOOD CELLS # 0.1 10^3/ul (0.0-0.0); NUCLEATED RED BLOOD CELLS% 0.5 /100WBC (0.0-0.0); PLATELET COUNT 308 10^3/UL (140-415); RED BLOOD COUNT 2.71 10^6/ul (4.20-5.40); RED CELL DISTRIBUTION WIDTH 17.4 % (11.5-14.5)
[2017-07-28 16:04] LABS: ANION GAP 15 (8-16); BLOOD UREA NITROGEN 13 mg/dl (7-20); CALCIUM 8.6 mg/dl (8.4-10.2); CARBON DIOXIDE 25 mmol/L (21-31); CHLORIDE 106 mmol/L (97-110); CREATININE 0.86 mg/dl (0.44-1.00); GLUCOSE 98 mg/dl (70-220); POTASSIUM 4.3 mmol/L (3.5-5.1); SODIUM 142 mmol/L (135-144)
[2017-07-29] MEDS: morphine 4 MG/ML VIAL IV ×6 (01:00→20:52)
[2017-07-29] MEDS: DIPHENHYDRAMINE 50 MG INJ IV ×7 (01:01→20:52)
[2017-07-29 05:48] LABS: ADD MAN DIFF? NO
[2017-07-29] MEDS: PANTOPRAZOLE (EC) 40 MG TAB PO (06:03)
[2017-07-29 06:07] LABS: BASOPHIL # 0.1 10^3/ul (0.0-0.1); BASOPHILS % 1.1 % (0.0-2.0); EOSINOPHILS # 0.4 10^3/ul (0.0-0.5); EOSINOPHILS % 4.5 % (0.0-7.0); HEMATOCRIT 23.7 % (37.0-47.0); HEMOGLOBIN 7.6 g/dl (12.0-16.0); LYMPHOCYTES # 3.4 10^3/ul (0.8-2.9); LYMPHOCYTES % 38.8 % (15.0-51.0); MEAN CORPUSCULAR HEMOGLOBIN 29.6 pg (29.0-33.0); MEAN CORPUSCULAR HGB CONC 32.1 g/dl (32.0-37.0); MEAN CORPUSCULAR VOLUME 92.2 fl (82.0-101.0); MEAN PLATELET VOLUME 11.1 fl (7.4-10.4); MONOCYTE # 1.1 10^3/ul (0.3-0.9); MONOCYTES % 12.1 % (0.0-11.0); NEUTROPHIL # 3.8 10^3/ul (1.6-7.5); NUCLEATED RED BLOOD CELLS% 0.3 /100WBC (0.0-0.0); PLATELET COUNT 305 10^3/UL (140-415); RED BLOOD COUNT 2.57 10^6/ul (4.20-5.40); RED CELL DISTRIBUTION WIDTH 17.5 % (11.5-14.5)
[2017-07-29 06:07] LABS: WHITE BLOOD COUNT 8.9 10^3/ul (4.8-10.8)
[2017-07-29 06:28] LABS: ANION GAP 16 (8-16); BLOOD UREA NITROGEN 13 mg/dl (7-20); CALCIUM 8.5 mg/dl (8.4-10.2); CARBON DIOXIDE 25 mmol/L (21-31); CHLORIDE 107 mmol/L (97-110); CREATININE 0.87 mg/dl (0.44-1.00); GLUCOSE 145 mg/dl (70-220); POTASSIUM 3.6 mmol/L (3.5-5.1); SODIUM 144 mmol/L (135-144)
[2017-07-29] MEDS: DEXTROSE 5%-0.45% NACL 1,000 ML IV (08:59)
[2017-07-29] MEDS: APIXABAN 5 MG TABLET PO ×2 (09:00→20:48)
[2017-07-29] MEDS: SENNA TAB PO ×2 (09:00→20:48)
[2017-07-29] MEDS: FOLIC ACID 1 MG TAB PO (09:01)
[2017-07-29] MEDS: HYDROXYUREA 500 MG CAP PO ×2 (09:02→20:51)
[2017-07-29] MEDS: POLYETHYLENE GLYCOL 17 GM PACKET PO ×3 (09:02→20:57)
[2017-07-29 16:29] LABS: IMMEDIATE SPIN CROSSMATCH 1 1
[2017-07-29] MEDS: ACETAMINOPHEN 325 MG TAB PO (16:42)
[2017-07-30] MEDS: morphine 4 MG/ML VIAL IV ×6 (01:10→21:13)
[2017-07-30] MEDS: DIPHENHYDRAMINE 50 MG INJ IV ×6 (01:10→21:13)
[2017-07-30] MEDS: PANTOPRAZOLE (EC) 40 MG TAB PO (05:05)
[2017-07-30 05:49] LABS: ADD MAN DIFF? NO
[2017-07-30 05:57] LABS: BASOPHIL # 0.1 10^3/ul (0.0-0.1); BASOPHILS % 1.1 % (0.0-2.0); EOSINOPHILS # 0.4 10^3/ul (0.0-0.5); EOSINOPHILS % 3.2 % (0.0-7.0); HEMATOCRIT 27.2 % (37.0-47.0); MEAN CORPUSCULAR HEMOGLOBIN 29.7 pg (29.0-33.0); MEAN CORPUSCULAR HGB CONC 33.1 g/dl (32.0-37.0); MEAN CORPUSCULAR VOLUME 89.8 fl (82.0-101.0); MEAN PLATELET VOLUME 10.8 fl (7.4-10.4); MONOCYTE # 1.1 10^3/ul (0.3-0.9); MONOCYTES % 9.6 % (0.0-11.0); NEUTROPHIL # 6.8 10^3/ul (1.6-7.5); NEUTROPHILS % 59.5 % (39.0-77.0); NUCLEATED RED BLOOD CELLS% 0.3 /100WBC (0.0-0.0); PLATELET COUNT 285 10^3/UL (140-415); RED BLOOD COUNT 3.03 10^6/ul (4.20-5.40); RED CELL DISTRIBUTION WIDTH 16.8 % (11.5-14.5)
[2017-07-30 05:57] LABS: WHITE BLOOD COUNT 11.4 10^3/ul (4.8-10.8)
[2017-07-30] MEDS: DEXTROSE 5%-0.45% NACL 1,000 ML IV (08:30)
[2017-07-30] MEDS: SENNA TAB PO ×2 (09:00→20:32)
[2017-07-30] MEDS: FOLIC ACID 1 MG TAB PO (09:11)
[2017-07-30] MEDS: POLYETHYLENE GLYCOL 17 GM PACKET PO ×2 (09:12→20:32)
[2017-07-30] MEDS: APIXABAN 5 MG TABLET PO ×2 (09:12→20:31)
[2017-07-30] MEDS: HYDROXYUREA 500 MG CAP PO ×2 (09:20→20:32)
[2017-07-30] MEDS: HEPARIN (100 UNITS/ML) 5 ML SYG CATHETER (21:37)
== END 2017-07-30 22:00 | disposition home or self-care (01) | DRG 314 ==
LOC: MS1 07-20 15:44 → E/R 02:06 → MS4 05:50 → MS1 22:02
PROC: 30233N1 Transfusion of Nonautologous Red Blood Cells into Peripheral Vein, Percutaneous Approach (ICD-10-PCS; principal; 2017-07-14)
DX: T80.211A Bloodstream infection due to central venous catheter, initial encounter (principal); D57.00 Hb-SS disease with crisis, unspecified; A41.1 Sepsis due to other specified staphylococcus; N39.0 Urinary tract infection, site not specified; J45.909 Unspecified asthma, uncomplicated; Z90.49 Acquired absence of other specified parts of digestive tract; Z86.711 Personal history of pulmonary embolism; E83.19 Other disorders of iron metabolism; E83.111 Hemochromatosis due to repeated red blood cell transfusions; R16.0 Hepatomegaly, not elsewhere classified; Z90.81 Acquired absence of spleen; B27.90 Infectious mononucleosis, unspecified without complication; J34.2 Deviated nasal septum; R13.10 Dysphagia, unspecified; G52.1 Disorders of glossopharyngeal nerve; K59.00 Constipation, unspecified; H10.9 Unspecified conjunctivitis; Z79.01 Long term (current) use of anticoagulants; D64.89 Other specified anemias; R59.0 Localized enlarged lymph nodes; Z88.0 Allergy status to penicillin; Y71.8 Miscellaneous cardiovascular devices associated with adverse incidents, not elsewhere classified; B37.3 Candidiasis of vulva and vagina
CPT/HCPCS: 36415; 36430; 71045; 76536; 76705; 80048; 80053; 80076; 80202; 80307; 81001; 81003; 81025; 82565; 82728; 83540; 83605; 83690; 83735; 84100; 84145; 84443; 84484; 84520; 85025; 85610; 85730; 86850; 86900; 86901; 86920; 87040; 87070; 87086; 87880; 93005; 93306; 96374; 96375; 96376; 99285-25

== ENCOUNTER 2017-08-06 13:54 | Inpatient (IN) | payer OTHER ==
[2017-08-06 14:58] LABS: ADD MAN DIFF? NO
[2017-08-06] MEDS: LIDOCAINE/MYLANTA 40 ML BTL PO (15:00)
[2017-08-06 15:06] LABS: ABNORMAL IP MESSAGE 1; BASOPHIL # 0.1 10^3/ul (0.0-0.1); BASOPHILS % 0.4 % (0.0-2.0); EOSINOPHILS # 0.1 10^3/ul (0.0-0.5); EOSINOPHILS % 0.4 % (0.0-7.0); HEMATOCRIT 29.8 % (37.0-47.0); HEMOGLOBIN 9.8 g/dl (12.0-16.0); LYMPHOCYTES # 0.7 10^3/ul (0.8-2.9); LYMPHOCYTES % 2.9 % (15.0-51.0); MEAN CORPUSCULAR HGB CONC 32.9 g/dl (32.0-37.0); MEAN CORPUSCULAR VOLUME 91.1 fl (82.0-101.0); MEAN PLATELET VOLUME 10.6 fl (7.4-10.4); MONOCYTE # 0.3 10^3/ul (0.3-0.9); MONOCYTES % 1.1 % (0.0-11.0); NEUTROPHIL # 22.3 10^3/ul (1.6-7.5); NEUTROPHILS % 93.9 % (39.0-77.0); NUCLEATED RED BLOOD CELLS # 0.1 10^3/ul (0.0-0.0); NUCLEATED RED BLOOD CELLS% 0.2 /100WBC (0.0-0.0); PLATELET COUNT 285 10^3/UL (140-415); RED BLOOD COUNT 3.27 10^6/ul (4.20-5.40); RED CELL DISTRIBUTION WIDTH 16.9 % (11.5-14.5)
[2017-08-06 15:06] LABS: WHITE BLOOD COUNT 23.7 10^3/ul (4.8-10.8)
[2017-08-06 15:09] LABS: POSITIVE DIFF @See below
[2017-08-06 15:18] LABS: RETICULOCYTE COUNT # 0.106 X10^6 (0.020-0.110); RETICULOCYTE COUNT % 3.3 % (0.5-1.5)
[2017-08-06 15:18] LABS: RETICULOCYTE RBC 3.21
[2017-08-06] MEDS: SOD CHLORIDE 0.9% 1,000 ML IV ×4 (15:20→22:13)
[2017-08-06 15:25] LABS: ANION GAP 19 (8-16); BLOOD UREA NITROGEN 20 mg/dl (7-20); CALCIUM 8.5 mg/dl (8.4-10.2); CARBON DIOXIDE 18 mmol/L (21-31); CHLORIDE 108 mmol/L (97-110); CREATININE 1.33 mg/dl (0.44-1.00); GLUCOSE 108 mg/dl (70-220); POTASSIUM 3.7 mmol/L (3.5-5.1); SODIUM 141 mmol/L (135-144)
[2017-08-06] MEDS: HYDROmorphONE 0.5 MG/0.5 ML SYG IV (15:25)
[2017-08-06] MEDS: CEFEPIME 2GM/50 ML (PMX) 50 ML IVPB (15:37)
[2017-08-06] MEDS: morphine 4 MG/ML VIAL IV ×2 (15:37→16:48)
[2017-08-06] MEDS: DILTIAZEM 50 MG INJ IV (15:57)
[2017-08-06 15:58] LABS: TROPONIN-I 0.132 ng/ml (0.000-0.120)
[2017-08-06 16:03] LABS: LACTIC ACID 4.3 mmol/L (0.5-2.0)
[2017-08-06] MEDS: CLOPIDOGREL 75 MG TAB PO (16:17)
[2017-08-06] MEDS: FAMOTIDINE 20 MG TAB PO (16:48)
[2017-08-06] MEDS: VANCOMYCIN 1 GM (PMX) 250 ML IVPB (16:48)
[2017-08-06] MEDS: ACETAMINOPHEN 325 MG TAB PO (17:39)
[2017-08-06 18:02] LABS: ADD UMIC YES; UR AMORPHOUS CRYSTAL FEW /HPF (NONE SEEN); UR ASCORBIC ACID NEGATIVE (NEGATIVE); UR BACTERIA FEW /HPF (NONE SEEN); UR BILIRUBIN (Dip) NEGATIVE (NEGATIVE); UR BLOOD (Dip) 2+ mg/dL (NEGATIVE); UR CLARITY SLIGHTLY CLOUDY (CLEAR); UR COLOR AMBER (YELLOW); UR GLUCOSE (Dip) 1+ mg/dL (NEGATIVE); UR KETONES (Dip) NEGATIVE (NEGATIVE); UR LEUKOCYTE ESTERASE (Dip) NEGATIVE Leu/ul (NEGATIVE); UR MUCUS FEW /HPF (NONE SEEN); UR NITRITE (Dip) NEGATIVE (NEGATIVE); UR RBC 4 /HPF (0-5); UR SPECIFIC GRAVITY (Dip) 1.015 (1.003-1.030); UR SQUAMOUS EPITHELIAL CELL FEW /HPF (FEW); UR TOTAL PROTEIN (Dip) 2+ mg/dl (NEGATIVE); UR UROBILINOGEN (Dip) NEGATIVE (NEGATIVE); UR WBC 7 /HPF (0-5)
[2017-08-06 18:12] LABS: LACTIC ACID 2.6 mmol/L (0.5-2.0)
[2017-08-06] MEDS ORDERED: NITROGLYCERIN (SL) 0.4 MG TAB SL (19:00)
[2017-08-06] MEDS ORDERED: VANCOMYCIN IV PER PHARMACY XX (19:00)
[2017-08-06] MEDS ORDERED: VANCOMYCIN 500MG/NS (PMX) 100 ML IVPB ×2 (20:00→21:00)
[2017-08-06] MEDS: morphine 10 MG INJ IV (20:59)
[2017-08-06] MEDS: ONDANSETRON 4 MG INJ IV (20:59)
[2017-08-06] MEDS: VANCOMYCIN 500MG/NS (PMX) 100 ML IVPB (21:05)
[2017-08-06] MEDS: DIPHENHYDRAMINE 50 MG INJ IV (21:07)
[2017-08-06 21:15] LABS: LACTIC ACID 1.3 mmol/L (0.5-2.0)
[2017-08-06 21:30] LABS: TROPONIN-I 0.162 ng/ml (0.000-0.120)
[2017-08-06] MEDS ORDERED: HYDROCODONE/APAP (5/325) TAB PO (22:00)
[2017-08-06] MEDS: CEFEPIME 1GM/50 ML (PMX) 50 ML IVPB (22:12)
[2017-08-07] MEDS: DIPHENHYDRAMINE 50 MG INJ IV ×6 (01:00→21:17)
[2017-08-07] MEDS: morphine 10 MG INJ IV ×6 (01:14→21:18)
[2017-08-07] MEDS: ONDANSETRON 4 MG INJ IV ×2 (05:07→21:17)
[2017-08-07] MEDS: SOD CHLORIDE 0.9% 1,000 ML IV ×5 (05:13→22:30)
[2017-08-07 08:49] LABS: ADD MAN DIFF? NO
[2017-08-07 08:58] LABS: BASOPHIL # 0.1 10^3/ul (0.0-0.1); BASOPHILS % 0.7 % (0.0-2.0); EOSINOPHILS # 0.4 10^3/ul (0.0-0.5); EOSINOPHILS % 3.1 % (0.0-7.0); HEMATOCRIT 25.6 % (37.0-47.0); HEMOGLOBIN 8.3 g/dl (12.0-16.0); LYMPHOCYTES % 21.5 % (15.0-51.0); MEAN CORPUSCULAR HEMOGLOBIN 29.7 pg (29.0-33.0); MEAN CORPUSCULAR HGB CONC 32.4 g/dl (32.0-37.0); MEAN CORPUSCULAR VOLUME 91.8 fl (82.0-101.0); MEAN PLATELET VOLUME 11.5 fl (7.4-10.4); MONOCYTE # 1.2 10^3/ul (0.3-0.9); NEUTROPHIL # 8.9 10^3/ul (1.6-7.5); NEUTROPHILS % 64.6 % (39.0-77.0); NUCLEATED RED BLOOD CELLS # 0.1 10^3/ul (0.0-0.0); NUCLEATED RED BLOOD CELLS% 0.9 /100WBC (0.0-0.0); RED BLOOD COUNT 2.79 10^6/ul (4.20-5.40); RED CELL DISTRIBUTION WIDTH 17.3 % (11.5-14.5)
[2017-08-07 08:58] LABS: WHITE BLOOD COUNT 13.8 10^3/ul (4.8-10.8)
[2017-08-07] MEDS: CLOPIDOGREL 75 MG TAB PO (08:59)
[2017-08-07] MEDS: ENOXAPARIN 30 MG/0.3 ML SYG SC (08:59)
[2017-08-07] MEDS: CEFEPIME 1GM/50 ML (PMX) 50 ML IVPB (08:59)
[2017-08-07] MEDS ORDERED: ASPIRIN 325 MG TAB PO (09:00)
[2017-08-07 09:02] LABS: PLATELET COUNT 189 10^3/UL (140-415); POSITIVE DIFF @See below
[2017-08-07 09:19] LABS: ANION GAP 11 (8-16); BLOOD UREA NITROGEN 15 mg/dl (7-20); CALCIUM 7.9 mg/dl (8.4-10.2); CARBON DIOXIDE 23 mmol/L (21-31); CHLORIDE 111 mmol/L (97-110); CREATININE 1.08 mg/dl (0.44-1.00); GLUCOSE 92 mg/dl (70-220); POTASSIUM 4.1 mmol/L (3.5-5.1); SODIUM 141 mmol/L (135-144)
[2017-08-07] MEDS ORDERED: NON-FORMULARY/PATIENT OWN MED (Hydrocodone/Acetaminophen (Norco 5-325 Tablet) 1 EACH) PO (12:00)
[2017-08-07] MEDS: VANCOMYCIN 1 GM 250 ML IVPB (12:12)
[2017-08-07] MEDS ORDERED: ALBUTEROL HFA 8 GM INHALER INH (15:00)
[2017-08-07] MEDS ORDERED: HYDROCODONE/APAP (5/325) TAB PO (15:30)
[2017-08-07 17:02] LABS: ALANINE AMINOTRANSFERASE 196 IU/L (13-69); ALBUMIN 3.4 g/dl (3.3-4.9); ALBUMIN/GLOBULIN RATIO 0.91; ALKALINE PHOSPHATASE 90 IU/L (42-121); ANION GAP 9 (8-16); ASPARTATE AMINO TRANSFERASE 228 IU/L (15-46); BILIRUBIN,INDIRECT 0.9 mg/dl (0-1.1); BILIRUBIN,TOTAL 0.9 mg/dl (0.2-1.3); BLOOD UREA NITROGEN 14 mg/dl (7-20); CALCIUM 8.4 mg/dl (8.4-10.2); CARBON DIOXIDE 22 mmol/L (21-31); CHLORIDE 114 mmol/L (97-110); CREATININE 0.84 mg/dl (0.44-1.00); GLUCOSE 104 mg/dl (70-220); POTASSIUM 4.8 mmol/L (3.5-5.1); SODIUM 140 mmol/L (135-144); TOTAL PROTEIN 7.1 g/dl (6.1-8.1)
[2017-08-07 17:05] LABS: CREATINE KINASE 812 IU/L (23-200)
[2017-08-07 17:18] LABS: CK INDEX 0.4; CK-MB 3.29 ng/ml (0.0-2.4); TROPONIN-I 0.077 ng/ml (0.000-0.120)
[2017-08-07] MEDS: MEROPENEM 1 GM/50ML(PMX) 50 ML IVPB (20:02)
[2017-08-07] MEDS: APIXABAN 5 MG TABLET PO (21:17)
[2017-08-07] MEDS: HYDROXYUREA 500 MG CAP PO (21:18)
[2017-08-08] MEDS: ACETAMINOPHEN 325 MG TAB PO ×2 (00:56→17:13)
[2017-08-08] MEDS: morphine 10 MG INJ IV ×6 (00:57→20:55)
[2017-08-08] MEDS: DIPHENHYDRAMINE 50 MG INJ IV ×6 (00:57→20:55)
[2017-08-08 01:04] LABS: CREATINE KINASE 479 IU/L (23-200)
[2017-08-08 01:16] LABS: CK INDEX 0.4; CK-MB 2.02 ng/ml (0.0-2.4); TROPONIN-I 0.102 ng/ml (0.000-0.120)
[2017-08-08] MEDS: ONDANSETRON 4 MG INJ IV (05:18)
[2017-08-08] MEDS: MEROPENEM 1 GM/50ML(PMX) 50 ML IVPB ×3 (05:18→20:54)
[2017-08-08 07:06] LABS: ADD MAN DIFF? NO
[2017-08-08 07:10] LABS: BASOPHIL # 0.1 10^3/ul (0.0-0.1); BASOPHILS % 0.9 % (0.0-2.0); EOSINOPHILS # 0.4 10^3/ul (0.0-0.5); EOSINOPHILS % 3.9 % (0.0-7.0); HEMATOCRIT 22.9 % (37.0-47.0); HEMOGLOBIN 7.4 g/dl (12.0-16.0); LYMPHOCYTES # 3.6 10^3/ul (0.8-2.9); MEAN CORPUSCULAR HEMOGLOBIN 29.7 pg (29.0-33.0); MEAN CORPUSCULAR HGB CONC 32.3 g/dl (32.0-37.0); MEAN PLATELET VOLUME 11.5 fl (7.4-10.4); MONOCYTE # 0.6 10^3/ul (0.3-0.9); MONOCYTES % 6.7 % (0.0-11.0); NEUTROPHIL # 4.7 10^3/ul (1.6-7.5); NEUTROPHILS % 49.6 % (39.0-77.0); NUCLEATED RED BLOOD CELLS # 0.3 10^3/ul (0.0-0.0); NUCLEATED RED BLOOD CELLS% 2.9 /100WBC (0.0-0.0); PLATELET COUNT 227 10^3/UL (140-415); RED BLOOD COUNT 2.49 10^6/ul (4.20-5.40); RED CELL DISTRIBUTION WIDTH 17.6 % (11.5-14.5)
[2017-08-08 07:10] LABS: WHITE BLOOD COUNT 9.4 10^3/ul (4.8-10.8)
[2017-08-08 07:53] LABS: CHOLESTEROL 135 mg/dl (100-200)
[2017-08-08 07:53] LABS: CHOL/HDL RATIO 6.4 RATIO; HDL CHOLESTEROL 21 mg/dl (33-83); LDL CHOLESTEROL,CALCULATED 80 mg/dl; TRIGLYCERIDES 170 mg/dl (0-149)
[2017-08-08] MEDS: APIXABAN 5 MG TABLET PO ×2 (08:54→20:55)
[2017-08-08] MEDS: FOLIC ACID 1 MG TAB PO (08:54)
[2017-08-08] MEDS: CLOPIDOGREL 75 MG TAB PO (08:54)
[2017-08-08 10:27] LABS: VANCOMYCIN,TROUGH 6.4 ug/ml (10.0-20.0)
[2017-08-08] MEDS: HYDROXYUREA 500 MG CAP PO ×2 (10:33→21:10)
[2017-08-08] MEDS: SOD CHLORIDE 0.9% 1,000 ML IV ×3 (10:35→20:54)
[2017-08-08] MEDS: SOD CHLORIDE 0.9% 250 ML IV* (17:09)
[2017-08-08 17:25] LABS: IMMEDIATE SPIN CROSSMATCH 1 1
[2017-08-09] MEDS: DIPHENHYDRAMINE 50 MG INJ IV ×6 (00:58→21:07)
[2017-08-09] MEDS: morphine 10 MG INJ IV ×6 (00:58→21:07)
[2017-08-09] MEDS: MEROPENEM 1 GM/50ML(PMX) 50 ML IVPB ×3 (05:17→23:31)
[2017-08-09] MEDS: SOD CHLORIDE 0.9% 1,000 ML IV ×4 (07:00→21:07)
[2017-08-09 09:17] LABS: ADD MAN DIFF? NO
[2017-08-09] MEDS: FOLIC ACID 1 MG TAB PO (09:17)
[2017-08-09] MEDS: CLOPIDOGREL 75 MG TAB PO (09:17)
[2017-08-09] MEDS: APIXABAN 5 MG TABLET PO ×2 (09:18→21:08)
[2017-08-09] MEDS: HYDROXYUREA 500 MG CAP PO ×2 (09:19→21:12)
[2017-08-09 09:24] LABS: WHITE BLOOD COUNT 10.8 10^3/ul (4.8-10.8)
[2017-08-09 09:24] LABS: BASOPHIL # 0.1 10^3/ul (0.0-0.1); BASOPHILS % 0.8 % (0.0-2.0); EOSINOPHILS # 0.5 10^3/ul (0.0-0.5); EOSINOPHILS % 4.8 % (0.0-7.0); HEMOGLOBIN 8.5 g/dl (12.0-16.0); LYMPHOCYTES # 2.8 10^3/ul (0.8-2.9); MEAN CORPUSCULAR HEMOGLOBIN 29.7 pg (29.0-33.0); MEAN CORPUSCULAR HGB CONC 32.7 g/dl (32.0-37.0); MEAN CORPUSCULAR VOLUME 90.9 fl (82.0-101.0); MEAN PLATELET VOLUME 11.2 fl (7.4-10.4); MONOCYTE # 1.1 10^3/ul (0.3-0.9); MONOCYTES % 10.5 % (0.0-11.0); NEUTROPHIL # 6.2 10^3/ul (1.6-7.5); NEUTROPHILS % 57.2 % (39.0-77.0); NUCLEATED RED BLOOD CELLS # 0.2 10^3/ul (0.0-0.0); NUCLEATED RED BLOOD CELLS% 1.4 /100WBC (0.0-0.0); PLATELET COUNT 304 10^3/UL (140-415); RED BLOOD COUNT 2.86 10^6/ul (4.20-5.40); RED CELL DISTRIBUTION WIDTH 17.5 % (11.5-14.5)
[2017-08-09 09:39] LABS: ANION GAP 12 (8-16); BLOOD UREA NITROGEN 11 mg/dl (7-20); CALCIUM 8.4 mg/dl (8.4-10.2); CARBON DIOXIDE 24 mmol/L (21-31); CHLORIDE 110 mmol/L (97-110); GLUCOSE 108 mg/dl (70-220); POTASSIUM 4.5 mmol/L (3.5-5.1); SODIUM 141 mmol/L (135-144)
[2017-08-09] MEDS ORDERED: VITAMIN A & D 5 GM OINT PACKET TOP (10:31)
[2017-08-10] MEDS: DIPHENHYDRAMINE 50 MG INJ IV ×6 (01:07→21:02)
[2017-08-10] MEDS: morphine 10 MG INJ IV ×6 (01:08→21:02)
[2017-08-10] MEDS: SOD CHLORIDE 0.9% 1,000 ML IV ×6 (03:00→23:00)
[2017-08-10] MEDS: ONDANSETRON 4 MG INJ IV ×2 (05:09→12:56)
[2017-08-10] MEDS: MEROPENEM 1 GM/50ML(PMX) 50 ML IVPB ×3 (05:09→21:07)
[2017-08-10] MEDS: APIXABAN 5 MG TABLET PO ×2 (09:01→21:00)
[2017-08-10] MEDS: FOLIC ACID 1 MG TAB PO (09:01)
[2017-08-10] MEDS: DIPHENHYDRAMINE 25 MG CAP PO (09:02)
[2017-08-10] MEDS: CLOPIDOGREL 75 MG TAB PO (09:02)
[2017-08-10] MEDS: HYDROXYUREA 500 MG CAP PO ×2 (09:07→21:02)
[2017-08-10 11:44] LABS: ADD MAN DIFF? NO
[2017-08-10 11:47] LABS: WHITE BLOOD COUNT 9.6 10^3/ul (4.8-10.8)
[2017-08-10 11:47] LABS: BASOPHIL # 0.1 10^3/ul (0.0-0.1); BASOPHILS % 0.8 % (0.0-2.0); EOSINOPHILS # 0.4 10^3/ul (0.0-0.5); EOSINOPHILS % 3.9 % (0.0-7.0); HEMATOCRIT 24.7 % (37.0-47.0); HEMOGLOBIN 8.1 g/dl (12.0-16.0); LYMPHOCYTES # 2.9 10^3/ul (0.8-2.9); LYMPHOCYTES % 30.4 % (15.0-51.0); MEAN CORPUSCULAR HEMOGLOBIN 29.6 pg (29.0-33.0); MEAN CORPUSCULAR HGB CONC 32.8 g/dl (32.0-37.0); MEAN CORPUSCULAR VOLUME 90.1 fl (82.0-101.0); MEAN PLATELET VOLUME 11.6 fl (7.4-10.4); MONOCYTE # 0.8 10^3/ul (0.3-0.9); MONOCYTES % 7.8 % (0.0-11.0); NEUTROPHIL # 5.4 10^3/ul (1.6-7.5); NEUTROPHILS % 56.2 % (39.0-77.0); NUCLEATED RED BLOOD CELLS # 0.1 10^3/ul (0.0-0.0); NUCLEATED RED BLOOD CELLS% 0.8 /100WBC (0.0-0.0); PLATELET COUNT 318 10^3/UL (140-415); RED BLOOD COUNT 2.74 10^6/ul (4.20-5.40); RED CELL DISTRIBUTION WIDTH 17.7 % (11.5-14.5)
[2017-08-10 12:12] LABS: ANION GAP 10 (8-16); BLOOD UREA NITROGEN 11 mg/dl (7-20); CALCIUM 8.6 mg/dl (8.4-10.2); CARBON DIOXIDE 27 mmol/L (21-31); CHLORIDE 108 mmol/L (97-110); CREATININE 0.68 mg/dl (0.44-1.00); GLUCOSE 84 mg/dl (70-220); POTASSIUM 4.3 mmol/L (3.5-5.1); SODIUM 141 mmol/L (135-144)
[2017-08-10] MEDS: FUROSEMIDE 20 MG INJ IV (16:59)
[2017-08-11] MEDS: morphine 10 MG INJ IV ×6 (00:59→21:11)
[2017-08-11] MEDS: DIPHENHYDRAMINE 50 MG INJ IV ×6 (00:59→21:11)
[2017-08-11] MEDS: ZOLPIDEM 5 MG TAB PO (02:31)
[2017-08-11] MEDS: MEROPENEM 1 GM/50ML(PMX) 50 ML IVPB ×3 (05:06→21:16)
[2017-08-11] MEDS: SOD CHLORIDE 0.9% 1,000 ML IV ×3 (05:06→21:16)
[2017-08-11] MEDS: FOLIC ACID 1 MG TAB PO (08:55)
[2017-08-11] MEDS: APIXABAN 5 MG TABLET PO ×2 (08:55→20:51)
[2017-08-11] MEDS: CLOPIDOGREL 75 MG TAB PO (08:55)
[2017-08-11] MEDS: FUROSEMIDE 20 MG INJ IV (08:57)
[2017-08-11] MEDS: HYDROXYUREA 500 MG CAP PO ×2 (09:00→20:54)
[2017-08-11 10:36] LABS: ADD MAN DIFF? NO
[2017-08-11 10:40] LABS: WHITE BLOOD COUNT 9.3 10^3/ul (4.8-10.8)
[2017-08-11 10:40] LABS: BASOPHIL # 0.1 10^3/ul (0.0-0.1); BASOPHILS % 1.4 % (0.0-2.0); EOSINOPHILS # 0.7 10^3/ul (0.0-0.5); EOSINOPHILS % 7.3 % (0.0-7.0); HEMATOCRIT 26.8 % (37.0-47.0); HEMOGLOBIN 8.8 g/dl (12.0-16.0); LYMPHOCYTES # 3.5 10^3/ul (0.8-2.9); LYMPHOCYTES % 37.2 % (15.0-51.0); MEAN CORPUSCULAR HEMOGLOBIN 29.7 pg (29.0-33.0); MEAN CORPUSCULAR HGB CONC 32.8 g/dl (32.0-37.0); MEAN CORPUSCULAR VOLUME 90.5 fl (82.0-101.0); MEAN PLATELET VOLUME 10.7 fl (7.4-10.4); MONOCYTE # 1.1 10^3/ul (0.3-0.9); MONOCYTES % 12.1 % (0.0-11.0); NEUTROPHIL # 3.9 10^3/ul (1.6-7.5); NEUTROPHILS % 41.5 % (39.0-77.0); NUCLEATED RED BLOOD CELLS # 0.1 10^3/ul (0.0-0.0); NUCLEATED RED BLOOD CELLS% 0.7 /100WBC (0.0-0.0); PLATELET COUNT 404 10^3/UL (140-415); RED BLOOD COUNT 2.96 10^6/ul (4.20-5.40); RED CELL DISTRIBUTION WIDTH 17.2 % (11.5-14.5)
[2017-08-11 11:02] LABS: ANION GAP 14 (8-16); BLOOD UREA NITROGEN 12 mg/dl (7-20); CALCIUM 8.8 mg/dl (8.4-10.2); CARBON DIOXIDE 30 mmol/L (21-31); CHLORIDE 101 mmol/L (97-110); CREATININE 0.67 mg/dl (0.44-1.00); GLUCOSE 108 mg/dl (70-220); POTASSIUM 4.2 mmol/L (3.5-5.1); SODIUM 141 mmol/L (135-144)
[2017-08-12] MEDS: MEROPENEM 1 GM/50ML(PMX) 50 ML IVPB ×3 (05:15→21:51)
[2017-08-12] MEDS: DIPHENHYDRAMINE 50 MG INJ IV ×5 (06:04→21:50)
[2017-08-12] MEDS: morphine 10 MG INJ IV ×5 (06:05→21:50)
[2017-08-12] MEDS: APIXABAN 5 MG TABLET PO ×2 (09:09→21:50)
[2017-08-12] MEDS: CLOPIDOGREL 75 MG TAB PO (09:09)
[2017-08-12] MEDS: FOLIC ACID 1 MG TAB PO (09:09)
[2017-08-12] MEDS: FUROSEMIDE 20 MG INJ IV (09:10)
[2017-08-12] MEDS: HYDROXYUREA 500 MG CAP PO ×2 (09:16→21:59)
[2017-08-12 09:23] LABS: ADD MAN DIFF? NO
[2017-08-12 09:26] LABS: BASOPHIL # 0.1 10^3/ul (0.0-0.1); EOSINOPHILS # 0.5 10^3/ul (0.0-0.5); EOSINOPHILS % 4.4 % (0.0-7.0); HEMATOCRIT 26.9 % (37.0-47.0); HEMOGLOBIN 8.8 g/dl (12.0-16.0); LYMPHOCYTES # 3.1 10^3/ul (0.8-2.9); LYMPHOCYTES % 29.9 % (15.0-51.0); MEAN CORPUSCULAR HEMOGLOBIN 29.7 pg (29.0-33.0); MEAN CORPUSCULAR HGB CONC 32.7 g/dl (32.0-37.0); MEAN CORPUSCULAR VOLUME 90.9 fl (82.0-101.0); MEAN PLATELET VOLUME 10.5 fl (7.4-10.4); MONOCYTE # 0.8 10^3/ul (0.3-0.9); MONOCYTES % 7.8 % (0.0-11.0); NEUTROPHIL # 5.9 10^3/ul (1.6-7.5); NEUTROPHILS % 56.4 % (39.0-77.0); NUCLEATED RED BLOOD CELLS # 0.1 10^3/ul (0.0-0.0); NUCLEATED RED BLOOD CELLS% 0.5 /100WBC (0.0-0.0); PLATELET COUNT 424 10^3/UL (140-415); RED BLOOD COUNT 2.96 10^6/ul (4.20-5.40); RED CELL DISTRIBUTION WIDTH 17.2 % (11.5-14.5)
[2017-08-12 09:26] LABS: WHITE BLOOD COUNT 10.5 10^3/ul (4.8-10.8)
[2017-08-12 09:50] LABS: ANION GAP 12 (8-16); BLOOD UREA NITROGEN 10 mg/dl (7-20); CALCIUM 8.9 mg/dl (8.4-10.2); CARBON DIOXIDE 30 mmol/L (21-31); CHLORIDE 102 mmol/L (97-110); CREATININE 0.67 mg/dl (0.44-1.00); GLUCOSE 127 mg/dl (70-220); POTASSIUM 4.6 mmol/L (3.5-5.1); SODIUM 139 mmol/L (135-144)
[2017-08-12] MEDS: SOD CHLORIDE 0.9% 1,000 ML IV ×2 (11:50→18:04)
[2017-08-12] MEDS: ONDANSETRON 4 MG INJ IV (14:37)
[2017-08-13] MEDS: DIPHENHYDRAMINE 50 MG INJ IV ×6 (01:48→21:05)
[2017-08-13] MEDS: morphine 10 MG INJ IV ×6 (01:49→21:05)
[2017-08-13] MEDS: MEROPENEM 1 GM/50ML(PMX) 50 ML IVPB ×3 (05:44→21:13)
[2017-08-13 06:17] LABS: ADD MAN DIFF? NO
[2017-08-13 06:20] LABS: WHITE BLOOD COUNT 12.7 10^3/ul (4.8-10.8)
[2017-08-13 06:20] LABS: BASOPHIL # 0.1 10^3/ul (0.0-0.1); BASOPHILS % 0.8 % (0.0-2.0); EOSINOPHILS # 0.5 10^3/ul (0.0-0.5); EOSINOPHILS % 4.2 % (0.0-7.0); HEMATOCRIT 26.7 % (37.0-47.0); HEMOGLOBIN 8.6 g/dl (12.0-16.0); LYMPHOCYTES # 3.7 10^3/ul (0.8-2.9); LYMPHOCYTES % 28.7 % (15.0-51.0); MEAN CORPUSCULAR HEMOGLOBIN 29.7 pg (29.0-33.0); MEAN CORPUSCULAR HGB CONC 32.2 g/dl (32.0-37.0); MEAN CORPUSCULAR VOLUME 92.1 fl (82.0-101.0); MEAN PLATELET VOLUME 10.4 fl (7.4-10.4); MONOCYTE # 1.1 10^3/ul (0.3-0.9); MONOCYTES % 8.3 % (0.0-11.0); NEUTROPHIL # 7.3 10^3/ul (1.6-7.5); NEUTROPHILS % 57.1 % (39.0-77.0); NUCLEATED RED BLOOD CELLS% 0.3 /100WBC (0.0-0.0); PLATELET COUNT 406 10^3/UL (140-415)
[2017-08-13 06:48] LABS: ANION GAP 10 (8-16); BLOOD UREA NITROGEN 13 mg/dl (7-20); CALCIUM 8.6 mg/dl (8.4-10.2); CARBON DIOXIDE 30 mmol/L (21-31); CHLORIDE 104 mmol/L (97-110); CREATININE 0.92 mg/dl (0.44-1.00); GLUCOSE 111 mg/dl (70-220); POTASSIUM 4.4 mmol/L (3.5-5.1); SODIUM 140 mmol/L (135-144)
[2017-08-13] MEDS: FUROSEMIDE 20 MG INJ IV (09:18)
[2017-08-13] MEDS: FOLIC ACID 1 MG TAB PO (09:18)
[2017-08-13] MEDS: CLOPIDOGREL 75 MG TAB PO (09:18)
[2017-08-13] MEDS: APIXABAN 5 MG TABLET PO ×2 (09:18→21:04)
[2017-08-13] MEDS: HYDROXYUREA 500 MG CAP PO ×2 (09:32→21:09)
[2017-08-13] MEDS: FLUCONAZOLE 100 MG TAB PO (13:15)
[2017-08-13] MEDS: ONDANSETRON 4 MG INJ IV (17:22)
[2017-08-14] MEDS: morphine 10 MG INJ IV ×6 (01:03→21:32)
[2017-08-14] MEDS: DIPHENHYDRAMINE 50 MG INJ IV ×6 (01:03→21:33)
[2017-08-14] MEDS: ZOLPIDEM 5 MG TAB PO (01:22)
[2017-08-14] MEDS: MEROPENEM 1 GM/50ML(PMX) 50 ML IVPB ×3 (05:54→21:32)
[2017-08-14] MEDS: APIXABAN 5 MG TABLET PO ×2 (09:34→21:33)
[2017-08-14] MEDS: FOLIC ACID 1 MG TAB PO (09:34)
[2017-08-14] MEDS: FLUCONAZOLE 100 MG TAB PO (09:34)
[2017-08-14] MEDS: CLOPIDOGREL 75 MG TAB PO (09:34)
[2017-08-14] MEDS: FUROSEMIDE 20 MG INJ IV (09:35)
[2017-08-14 09:40] LABS: ADD MAN DIFF? NO
[2017-08-14 09:42] LABS: WHITE BLOOD COUNT 11.2 10^3/ul (4.8-10.8)
[2017-08-14 09:42] LABS: BASOPHIL # 0.1 10^3/ul (0.0-0.1); BASOPHILS % 1.2 % (0.0-2.0); EOSINOPHILS # 0.7 10^3/ul (0.0-0.5); EOSINOPHILS % 6.2 % (0.0-7.0); HEMATOCRIT 29.3 % (37.0-47.0); HEMOGLOBIN 9.7 g/dl (12.0-16.0); LYMPHOCYTES # 4.2 10^3/ul (0.8-2.9); MEAN CORPUSCULAR HEMOGLOBIN 30.2 pg (29.0-33.0); MEAN CORPUSCULAR HGB CONC 33.1 g/dl (32.0-37.0); MEAN CORPUSCULAR VOLUME 91.3 fl (82.0-101.0); MEAN PLATELET VOLUME 10.8 fl (7.4-10.4); MONOCYTE # 1.1 10^3/ul (0.3-0.9); MONOCYTES % 10.2 % (0.0-11.0); NEUTROPHILS % 44.7 % (39.0-77.0); NUCLEATED RED BLOOD CELLS # 0.1 10^3/ul (0.0-0.0); NUCLEATED RED BLOOD CELLS% 0.5 /100WBC (0.0-0.0); PLATELET COUNT 472 10^3/UL (140-415); RED BLOOD COUNT 3.21 10^6/ul (4.20-5.40); RED CELL DISTRIBUTION WIDTH 16.9 % (11.5-14.5)
[2017-08-14] MEDS: HYDROXYUREA 500 MG CAP PO ×2 (09:46→21:32)
[2017-08-14 10:11] LABS: ANION GAP 15 (8-16); BLOOD UREA NITROGEN 15 mg/dl (7-20); CALCIUM 9.2 mg/dl (8.4-10.2); CARBON DIOXIDE 29 mmol/L (21-31); CHLORIDE 101 mmol/L (97-110); CREATININE 0.86 mg/dl (0.44-1.00); GLUCOSE 122 mg/dl (70-220); POTASSIUM 4.9 mmol/L (3.5-5.1); SODIUM 140 mmol/L (135-144)
[2017-08-14] MEDS: ONDANSETRON 4 MG INJ IV (13:30)
[2017-08-14 15:50] LABS: ADD UMIC YES; UR ASCORBIC ACID NEGATIVE (NEGATIVE); UR BACTERIA FEW /HPF (NONE SEEN); UR BILIRUBIN (Dip) NEGATIVE (NEGATIVE); UR BLOOD (Dip) 1+ mg/dL (NEGATIVE); UR CLARITY CLEAR (CLEAR); UR COLOR YELLOW (YELLOW); UR GLUCOSE (Dip) 1+ mg/dL (NEGATIVE); UR KETONES (Dip) TRACE mg/dL (NEGATIVE); UR LEUKOCYTE ESTERASE (Dip) NEGATIVE Leu/ul (NEGATIVE); UR NITRITE (Dip) NEGATIVE (NEGATIVE); UR RBC 2 /HPF (0-5); UR SPECIFIC GRAVITY (Dip) 1.012 (1.003-1.030); UR SQUAMOUS EPITHELIAL CELL FEW /HPF (FEW); UR TOTAL PROTEIN (Dip) NEGATIVE (NEGATIVE); UR UROBILINOGEN (Dip) 2+ mg/dL (NEGATIVE); UR WBC 1 /HPF (0-5)
[2017-08-15] MEDS: morphine 10 MG INJ IV ×6 (01:30→21:31)
[2017-08-15] MEDS: DIPHENHYDRAMINE 50 MG INJ IV ×6 (01:30→21:31)
[2017-08-15] MEDS: MEROPENEM 1 GM/50ML(PMX) 50 ML IVPB ×3 (05:39→21:27)
[2017-08-15 09:06] LABS: ADD MAN DIFF? NO
[2017-08-15 09:11] LABS: WHITE BLOOD COUNT 13.2 10^3/ul (4.8-10.8)
[2017-08-15 09:11] LABS: BASOPHIL # 0.1 10^3/ul (0.0-0.1); BASOPHILS % 0.8 % (0.0-2.0); EOSINOPHILS # 0.5 10^3/ul (0.0-0.5); EOSINOPHILS % 3.4 % (0.0-7.0); HEMATOCRIT 27.2 % (37.0-47.0); LYMPHOCYTES # 3.2 10^3/ul (0.8-2.9); LYMPHOCYTES % 24.4 % (15.0-51.0); MEAN CORPUSCULAR HEMOGLOBIN 30.2 pg (29.0-33.0); MEAN CORPUSCULAR HGB CONC 33.1 g/dl (32.0-37.0); MEAN CORPUSCULAR VOLUME 91.3 fl (82.0-101.0); MEAN PLATELET VOLUME 10.5 fl (7.4-10.4); MONOCYTE # 0.8 10^3/ul (0.3-0.9); MONOCYTES % 6.2 % (0.0-11.0); NEUTROPHIL # 8.3 10^3/ul (1.6-7.5); NEUTROPHILS % 63.2 % (39.0-77.0); NUCLEATED RED BLOOD CELLS% 0.2 /100WBC (0.0-0.0); PLATELET COUNT 379 10^3/UL (140-415); RED BLOOD COUNT 2.98 10^6/ul (4.20-5.40); RED CELL DISTRIBUTION WIDTH 16.7 % (11.5-14.5)
[2017-08-15] MEDS: APIXABAN 5 MG TABLET PO ×2 (09:32→21:27)
[2017-08-15] MEDS: CLOPIDOGREL 75 MG TAB PO (09:32)
[2017-08-15] MEDS: FUROSEMIDE 20 MG INJ IV (09:32)
[2017-08-15] MEDS: FLUCONAZOLE 100 MG TAB PO (09:32)
[2017-08-15] MEDS: FOLIC ACID 1 MG TAB PO (09:32)
[2017-08-15 09:33] LABS: ANION GAP 12 (8-16); BLOOD UREA NITROGEN 21 mg/dl (7-20); CALCIUM 8.6 mg/dl (8.4-10.2); CARBON DIOXIDE 29 mmol/L (21-31); CHLORIDE 103 mmol/L (97-110); GLUCOSE 97 mg/dl (70-220); SODIUM 139 mmol/L (135-144)
[2017-08-15] MEDS: HYDROXYUREA 500 MG CAP PO ×2 (09:40→21:29)
[2017-08-15] MEDS: BISACODYL (EC) 5 MG TAB PO (17:38)
[2017-08-15 22:33] LABS: LACTIC ACID 0.7 mmol/L (0.5-2.0)
[2017-08-16] MEDS: ONDANSETRON 4 MG INJ IV (01:30)
[2017-08-16] MEDS: DIPHENHYDRAMINE 50 MG INJ IV ×6 (01:30→22:33)
[2017-08-16] MEDS: morphine 10 MG INJ IV ×6 (01:31→22:33)
[2017-08-16] MEDS: ZOLPIDEM 5 MG TAB PO (01:39)
[2017-08-16] MEDS: MEROPENEM 1 GM/50ML(PMX) 50 ML IVPB ×3 (06:40→22:35)
[2017-08-16 08:23] LABS: ADD MAN DIFF? NO
[2017-08-16 08:34] LABS: BASOPHIL # 0.1 10^3/ul (0.0-0.1); BASOPHILS % 1.6 % (0.0-2.0); EOSINOPHILS # 0.6 10^3/ul (0.0-0.5); EOSINOPHILS % 6.3 % (0.0-7.0); HEMATOCRIT 28.9 % (37.0-47.0); HEMOGLOBIN 9.4 g/dl (12.0-16.0); LYMPHOCYTES # 3.5 10^3/ul (0.8-2.9); LYMPHOCYTES % 39.1 % (15.0-51.0); MEAN CORPUSCULAR HEMOGLOBIN 29.7 pg (29.0-33.0); MEAN CORPUSCULAR HGB CONC 32.5 g/dl (32.0-37.0); MEAN CORPUSCULAR VOLUME 91.5 fl (82.0-101.0); MEAN PLATELET VOLUME 10.4 fl (7.4-10.4); MONOCYTE # 1.2 10^3/ul (0.3-0.9); MONOCYTES % 13.4 % (0.0-11.0); NEUTROPHIL # 3.4 10^3/ul (1.6-7.5); NEUTROPHILS % 38.8 % (39.0-77.0); NUCLEATED RED BLOOD CELLS% 0.3 /100WBC (0.0-0.0); PLATELET COUNT 366 10^3/UL (140-415); RED BLOOD COUNT 3.16 10^6/ul (4.20-5.40)
[2017-08-16 08:34] LABS: WHITE BLOOD COUNT 8.9 10^3/ul (4.8-10.8)
[2017-08-16 08:48] LABS: ANION GAP 16 (8-16); BLOOD UREA NITROGEN 21 mg/dl (7-20); CALCIUM 9.2 mg/dl (8.4-10.2); CARBON DIOXIDE 28 mmol/L (21-31); CHLORIDE 99 mmol/L (97-110); CREATININE 0.87 mg/dl (0.44-1.00); GLUCOSE 102 mg/dl (70-220); POTASSIUM 5.1 mmol/L (3.5-5.1); SODIUM 138 mmol/L (135-144)
[2017-08-16] MEDS: APIXABAN 5 MG TABLET PO ×2 (08:58→22:43)
[2017-08-16] MEDS: FOLIC ACID 1 MG TAB PO (08:58)
[2017-08-16] MEDS: CLOPIDOGREL 75 MG TAB PO (08:59)
[2017-08-16] MEDS: FLUCONAZOLE 100 MG TAB PO (08:59)
[2017-08-16] MEDS: HYDROXYUREA 500 MG CAP PO ×2 (09:02→22:43)
[2017-08-17] MEDS: DIPHENHYDRAMINE 50 MG INJ IV ×6 (02:44→22:32)
[2017-08-17] MEDS: morphine 10 MG INJ IV ×6 (02:45→22:32)
[2017-08-17] MEDS: ZOLPIDEM 5 MG TAB PO (02:56)
[2017-08-17] MEDS: MEROPENEM 1 GM/50ML(PMX) 50 ML IVPB ×3 (06:20→22:31)
[2017-08-17] MEDS: FLUCONAZOLE 100 MG TAB PO (10:43)
[2017-08-17] MEDS: APIXABAN 5 MG TABLET PO ×2 (10:44→22:32)
[2017-08-17] MEDS: CLOPIDOGREL 75 MG TAB PO (10:44)
[2017-08-17] MEDS: FOLIC ACID 1 MG TAB PO (10:44)
[2017-08-17] MEDS: HYDROXYUREA 500 MG CAP PO ×2 (10:46→22:33)
[2017-08-17 12:33] LABS: ADD MAN DIFF? NO
[2017-08-17 12:41] LABS: BASOPHIL # 0.1 10^3/ul (0.0-0.1); EOSINOPHILS # 0.4 10^3/ul (0.0-0.5); EOSINOPHILS % 3.5 % (0.0-7.0); HEMATOCRIT 26.9 % (37.0-47.0); HEMOGLOBIN 8.9 g/dl (12.0-16.0); LYMPHOCYTES # 3.1 10^3/ul (0.8-2.9); LYMPHOCYTES % 26.2 % (15.0-51.0); MEAN CORPUSCULAR HEMOGLOBIN 30.1 pg (29.0-33.0); MEAN CORPUSCULAR HGB CONC 33.1 g/dl (32.0-37.0); MEAN CORPUSCULAR VOLUME 90.9 fl (82.0-101.0); MEAN PLATELET VOLUME 10.6 fl (7.4-10.4); MONOCYTE # 1.1 10^3/ul (0.3-0.9); MONOCYTES % 8.9 % (0.0-11.0); NUCLEATED RED BLOOD CELLS% 0.2 /100WBC (0.0-0.0); PLATELET COUNT 310 10^3/UL (140-415); RED BLOOD COUNT 2.96 10^6/ul (4.20-5.40); RED CELL DISTRIBUTION WIDTH 16.9 % (11.5-14.5)
[2017-08-17 12:41] LABS: WHITE BLOOD COUNT 11.7 10^3/ul (4.8-10.8)
[2017-08-17 13:21] LABS: ANION GAP 16 (8-16); BLOOD UREA NITROGEN 15 mg/dl (7-20); CALCIUM 9.1 mg/dl (8.4-10.2); CARBON DIOXIDE 29 mmol/L (21-31); CHLORIDE 99 mmol/L (97-110); CREATININE 0.79 mg/dl (0.44-1.00); GLUCOSE 102 mg/dl (70-220); POTASSIUM 4.9 mmol/L (3.5-5.1); SODIUM 139 mmol/L (135-144)
[2017-08-18] MEDS: ZOLPIDEM 5 MG TAB PO (00:39)
[2017-08-18] MEDS: DIPHENHYDRAMINE 50 MG INJ IV ×6 (02:35→22:34)
[2017-08-18] MEDS: morphine 10 MG INJ IV ×6 (02:36→22:34)
[2017-08-18] MEDS: MEROPENEM 1 GM/50ML(PMX) 50 ML IVPB ×3 (06:28→21:23)
[2017-08-18] MEDS: APIXABAN 5 MG TABLET PO ×2 (08:24→21:23)
[2017-08-18] MEDS: FLUCONAZOLE 100 MG TAB PO (08:24)
[2017-08-18] MEDS: FOLIC ACID 1 MG TAB PO (08:24)
[2017-08-18] MEDS: CLOPIDOGREL 75 MG TAB PO (08:24)
[2017-08-18] MEDS: HYDROXYUREA 500 MG CAP PO ×2 (08:34→21:24)
[2017-08-18] MEDS: BUPIVACAINE 0.5%/EPI (SDV) 30 ML INJ INJ (12:00)
[2017-08-18] MEDS: BETAMET NA PHOS/AC(6 MG/ML) 5ML INJ INJ (12:00)
[2017-08-19] MEDS: DIPHENHYDRAMINE 50 MG INJ IV ×6 (02:29→22:13)
[2017-08-19] MEDS: morphine 10 MG INJ IV ×6 (02:30→22:14)
[2017-08-19] MEDS: ZOLPIDEM 5 MG TAB PO (02:41)
[2017-08-19] MEDS: MEROPENEM 1 GM/50ML(PMX) 50 ML IVPB ×3 (06:33→21:37)
[2017-08-19] MEDS: APIXABAN 5 MG TABLET PO ×2 (08:42→21:37)
[2017-08-19] MEDS: FOLIC ACID 1 MG TAB PO (08:42)
[2017-08-19] MEDS: CLOPIDOGREL 75 MG TAB PO (08:42)
[2017-08-19] MEDS: HYDROXYUREA 500 MG CAP PO ×2 (08:45→21:40)
[2017-08-19 10:53] LABS: ABNORMAL IP MESSAGE 1; HEMATOCRIT 28.5 % (37.0-47.0); HEMOGLOBIN 9.5 g/dl (12.0-16.0); MEAN CORPUSCULAR HEMOGLOBIN 30.4 pg (29.0-33.0); MEAN CORPUSCULAR HGB CONC 33.3 g/dl (32.0-37.0); MEAN CORPUSCULAR VOLUME 91.1 fl (82.0-101.0); NUCLEATED RED BLOOD CELLS% 0.1 /100WBC (0.0-0.0); PLATELET COUNT 291 10^3/UL (140-415); RED BLOOD COUNT 3.13 10^6/ul (4.20-5.40); RED CELL DISTRIBUTION WIDTH 16.8 % (11.5-14.5)
[2017-08-19 10:57] LABS: ADD MAN DIFF? YES; POSITIVE DIFF @See below
[2017-08-19 11:17] LABS: ANION GAP 16 (8-16); BLOOD UREA NITROGEN 17 mg/dl (7-20); CALCIUM 9.5 mg/dl (8.4-10.2); CARBON DIOXIDE 26 mmol/L (21-31); CHLORIDE 104 mmol/L (97-110); CREATININE 0.72 mg/dl (0.44-1.00); GLUCOSE 152 mg/dl (70-220); POTASSIUM 4.7 mmol/L (3.5-5.1); SODIUM 141 mmol/L (135-144)
[2017-08-19 11:23] LABS: ANISOCYTOSIS 1+ (0-0); GIANT THROMBO% (M) 1 % (0-0); LYMPHOCYTES % (M) 4 % (15-51); MONOCYTE #M 0.8 10^3/ul (0.3-0.9); MONOCYTES % (M) 3 % (0-11); PLATELET ESTIMATE NORMAL; RBC MORPHOLOGY COMMENT @See below; SEGMENTED NEUTROPHILS (M) % 93 % (39-77); SMUDGE%M 1 % (0-0); WBC MORPHOLOGY COMMENT @See below
[2017-08-19 12:51] LABS: ADD MAN DIFF? NO
[2017-08-19 12:53] LABS: ABNORMAL IP MESSAGE 1; BASOPHILS % 0.2 % (0.0-2.0); HEMATOCRIT 27.3 % (37.0-47.0); LYMPHOCYTES # 1.6 10^3/ul (0.8-2.9); MEAN CORPUSCULAR HEMOGLOBIN 29.8 pg (29.0-33.0); MEAN CORPUSCULAR VOLUME 90.4 fl (82.0-101.0); MEAN PLATELET VOLUME 11.8 fl (7.4-10.4); MONOCYTE # 1.1 10^3/ul (0.3-0.9); NEUTROPHIL # 23.4 10^3/ul (1.6-7.5); NUCLEATED RED BLOOD CELLS% 0.1 /100WBC (0.0-0.0); PLATELET COUNT 287 10^3/UL (140-415); RED BLOOD COUNT 3.02 10^6/ul (4.20-5.40); RED CELL DISTRIBUTION WIDTH 16.9 % (11.5-14.5)
[2017-08-19 12:53] LABS: WHITE BLOOD COUNT 26.3 10^3/ul (4.8-10.8)
[2017-08-19 13:06] LABS: POSITIVE DIFF @See below
[2017-08-19 13:11] LABS: ALANINE AMINOTRANSFERASE 137 IU/L (13-69); ALBUMIN 4.5 g/dl (3.3-4.9); ALBUMIN/GLOBULIN RATIO 0.93; ALKALINE PHOSPHATASE 116 IU/L (42-121); ANION GAP 17 (8-16); ASPARTATE AMINO TRANSFERASE 142 IU/L (15-46); BILIRUBIN,INDIRECT 1.8 mg/dl (0-1.1); BILIRUBIN,TOTAL 1.8 mg/dl (0.2-1.3); BLOOD UREA NITROGEN 19 mg/dl (7-20); CALCIUM 9.3 mg/dl (8.4-10.2); CARBON DIOXIDE 26 mmol/L (21-31); CHLORIDE 103 mmol/L (97-110); CREATININE 0.68 mg/dl (0.44-1.00); GLUCOSE 155 mg/dl (70-220); POTASSIUM 4.8 mmol/L (3.5-5.1); SODIUM 141 mmol/L (135-144); TOTAL PROTEIN 9.3 g/dl (6.1-8.1)
[2017-08-20] MEDS: DIPHENHYDRAMINE 50 MG INJ IV ×6 (02:07→21:55)
[2017-08-20] MEDS: morphine 10 MG INJ IV ×6 (02:07→21:55)
[2017-08-20] MEDS: ZOLPIDEM 5 MG TAB PO (02:44)
[2017-08-20] MEDS: MEROPENEM 1 GM/50ML(PMX) 50 ML IVPB ×3 (06:09→21:55)
[2017-08-20] MEDS: APIXABAN 5 MG TABLET PO ×2 (10:07→20:22)
[2017-08-20] MEDS: FOLIC ACID 1 MG TAB PO (10:07)
[2017-08-20] MEDS: CLOPIDOGREL 75 MG TAB PO (10:07)
[2017-08-20] MEDS: HYDROXYUREA 500 MG CAP PO ×2 (10:10→20:21)
[2017-08-20 10:26] LABS: LACTATE DEHYDROGENASE 429 IU/L (313-618)
[2017-08-20 11:15] LABS: LACTIC ACID 1.3 mmol/L (0.5-2.0)
[2017-08-20 15:14] LABS: MONOTEST Positive (NEG)
[2017-08-21] MEDS: DIPHENHYDRAMINE 50 MG INJ IV ×6 (02:07→22:29)
[2017-08-21] MEDS: morphine 10 MG INJ IV ×6 (02:07→22:30)
[2017-08-21 03:51] LABS: ADD UMIC YES; UR ASCORBIC ACID NEGATIVE (NEGATIVE); UR BILIRUBIN (Dip) NEGATIVE (NEGATIVE); UR BLOOD (Dip) 1+ mg/dL (NEGATIVE); UR CLARITY CLEAR (CLEAR); UR COLOR YELLOW (YELLOW); UR GLUCOSE (Dip) NEGATIVE (NEGATIVE); UR KETONES (Dip) NEGATIVE (NEGATIVE); UR LEUKOCYTE ESTERASE (Dip) NEGATIVE Leu/ul (NEGATIVE); UR NITRITE (Dip) NEGATIVE (NEGATIVE); UR RBC 0 /HPF (0-5); UR SPECIFIC GRAVITY (Dip) 1.012 (1.003-1.030); UR SQUAMOUS EPITHELIAL CELL FEW /HPF (FEW); UR TOTAL PROTEIN (Dip) NEGATIVE (NEGATIVE); UR UROBILINOGEN (Dip) NEGATIVE (NEGATIVE); UR WBC 2 /HPF (0-5)
[2017-08-21] MEDS: MEROPENEM 1 GM/50ML(PMX) 50 ML IVPB ×3 (05:59→21:38)
[2017-08-21] MEDS: CLOPIDOGREL 75 MG TAB PO (09:46)
[2017-08-21] MEDS: APIXABAN 5 MG TABLET PO ×2 (09:47→21:38)
[2017-08-21] MEDS: FOLIC ACID 1 MG TAB PO (09:47)
[2017-08-21] MEDS: HYDROXYUREA 500 MG CAP PO ×2 (09:48→21:55)
[2017-08-21 15:30] LABS: ABNORMAL IP MESSAGE 1; ADD MAN DIFF? NO; BASOPHIL # 0.1 10^3/ul (0.0-0.1); BASOPHILS % 0.7 % (0.0-2.0); EOSINOPHILS # 0.2 10^3/ul (0.0-0.5); HEMOGLOBIN 8.1 g/dl (12.0-16.0); LYMPHOCYTES # 6.1 10^3/ul (0.8-2.9); LYMPHOCYTES % 36.4 % (15.0-51.0); MEAN CORPUSCULAR HEMOGLOBIN 29.2 pg (29.0-33.0); MEAN CORPUSCULAR HGB CONC 32.4 g/dl (32.0-37.0); MEAN CORPUSCULAR VOLUME 90.3 fl (82.0-101.0); MEAN PLATELET VOLUME 11.4 fl (7.4-10.4); MONOCYTE # 1.9 10^3/ul (0.3-0.9); MONOCYTES % 11.2 % (0.0-11.0); NEUTROPHIL # 8.4 10^3/ul (1.6-7.5); NEUTROPHILS % 50.1 % (39.0-77.0); NUCLEATED RED BLOOD CELLS% 0.2 /100WBC (0.0-0.0); PLATELET COUNT 289 10^3/UL (140-415); RED BLOOD COUNT 2.77 10^6/ul (4.20-5.40); RED CELL DISTRIBUTION WIDTH 17.4 % (11.5-14.5)
[2017-08-21 15:30] LABS: WHITE BLOOD COUNT 16.8 10^3/ul (4.8-10.8)
[2017-08-21 15:32] LABS: POSITIVE DIFF @See below
[2017-08-21 15:55] LABS: ANION GAP 14 (8-16); BLOOD UREA NITROGEN 15 mg/dl (7-20); CALCIUM 8.9 mg/dl (8.4-10.2); CARBON DIOXIDE 29 mmol/L (21-31); CHLORIDE 105 mmol/L (97-110); CREATININE 0.75 mg/dl (0.44-1.00); GLUCOSE 96 mg/dl (70-220); POTASSIUM 4.6 mmol/L (3.5-5.1); SODIUM 143 mmol/L (135-144)
[2017-08-21] MEDS: BISACODYL (EC) 5 MG TAB PO (18:32)
[2017-08-22] MEDS: DIPHENHYDRAMINE 50 MG INJ IV ×6 (02:16→22:46)
[2017-08-22] MEDS: morphine 10 MG INJ IV ×6 (02:17→22:46)
[2017-08-22] MEDS: ONDANSETRON 4 MG INJ IV ×2 (02:17→22:46)
[2017-08-22] MEDS: MEROPENEM 1 GM/50ML(PMX) 50 ML IVPB ×3 (06:16→22:52)
[2017-08-22] MEDS: APIXABAN 5 MG TABLET PO ×2 (09:48→21:05)
[2017-08-22] MEDS: FOLIC ACID 1 MG TAB PO (09:48)
[2017-08-22] MEDS: CLOPIDOGREL 75 MG TAB PO (09:48)
[2017-08-22] MEDS: HYDROXYUREA 500 MG CAP PO ×2 (09:50→21:07)
[2017-08-22] MEDS: PANTOPRAZOLE (EC) 40 MG TAB PO (18:25)
[2017-08-22] MEDS: LACTULOSE 30ML CUP PO (18:26)
[2017-08-22] MEDS: NA PHOSPHATE/BIPHOS 133 ML ENEMA PR (18:26)
[2017-08-22] MEDS: AL HYDROX/MG HYDROX/SIMETH 30 ML CUP PO (23:16)
[2017-08-23] MEDS: DIPHENHYDRAMINE 50 MG INJ IV ×6 (02:50→22:54)
[2017-08-23] MEDS: morphine 10 MG INJ IV ×6 (02:50→22:54)
[2017-08-23] MEDS: PANTOPRAZOLE (EC) 40 MG TAB PO ×2 (06:53→19:22)
[2017-08-23 11:24] LABS: ADD MAN DIFF? NO
[2017-08-23] MEDS: BISACODYL (EC) 5 MG TAB PO (11:26)
[2017-08-23] MEDS: CLOPIDOGREL 75 MG TAB PO (11:26)
[2017-08-23] MEDS: FOLIC ACID 1 MG TAB PO (11:26)
[2017-08-23] MEDS: LACTULOSE 30ML CUP PO (11:27)
[2017-08-23] MEDS: APIXABAN 5 MG TABLET PO ×2 (11:27→21:25)
[2017-08-23] MEDS: HYDROXYUREA 500 MG CAP PO ×2 (11:29→21:38)
[2017-08-23 11:30] LABS: BASOPHIL # 0.1 10^3/ul (0.0-0.1); BASOPHILS % 0.7 % (0.0-2.0); EOSINOPHILS # 0.4 10^3/ul (0.0-0.5); EOSINOPHILS % 3.9 % (0.0-7.0); HEMATOCRIT 25.5 % (37.0-47.0); HEMOGLOBIN 8.3 g/dl (12.0-16.0); LYMPHOCYTES # 4.1 10^3/ul (0.8-2.9); LYMPHOCYTES % 37.5 % (15.0-51.0); MEAN CORPUSCULAR HEMOGLOBIN 29.5 pg (29.0-33.0); MEAN CORPUSCULAR HGB CONC 32.5 g/dl (32.0-37.0); MEAN CORPUSCULAR VOLUME 90.7 fl (82.0-101.0); MEAN PLATELET VOLUME 10.9 fl (7.4-10.4); MONOCYTE # 0.8 10^3/ul (0.3-0.9); NEUTROPHIL # 5.5 10^3/ul (1.6-7.5); NEUTROPHILS % 50.2 % (39.0-77.0); NUCLEATED RED BLOOD CELLS% 0.4 /100WBC (0.0-0.0); PLATELET COUNT 313 10^3/UL (140-415); RED BLOOD COUNT 2.81 10^6/ul (4.20-5.40)
[2017-08-23 11:30] LABS: WHITE BLOOD COUNT 10.9 10^3/ul (4.8-10.8)
[2017-08-23 11:45] LABS: BLOOD UREA NITROGEN 13 mg/dl (7-20); CARBON DIOXIDE 32 mmol/L (21-31); CHLORIDE 99 mmol/L (97-110); CREATININE 0.73 mg/dl (0.44-1.00); GLUCOSE 89 mg/dl (70-220); POTASSIUM 4.4 mmol/L (3.5-5.1)
[2017-08-23 11:52] LABS: ANION GAP 14 (8-16); SODIUM 141 mmol/L (135-144)
[2017-08-23] MEDS: POLYETHYLENE GLYCOL 17 GM PACKET GTB (12:00)
[2017-08-23] MEDS: NA PHOSPHATE/BIPHOS 133 ML ENEMA PR (13:13)
[2017-08-23] MEDS: ONDANSETRON 4 MG TAB PO (19:22)
[2017-08-23] MEDS: LUBIPROSTONE 24 MCG CAP PO (21:25)
[2017-08-24] MEDS: DIPHENHYDRAMINE 50 MG INJ IV ×6 (02:57→22:56)
[2017-08-24] MEDS: morphine 10 MG INJ IV ×6 (02:58→22:55)
[2017-08-24] MEDS: ONDANSETRON 4 MG INJ IV (02:58)
[2017-08-24] MEDS: PANTOPRAZOLE (EC) 40 MG TAB PO ×2 (06:50→18:45)
[2017-08-24] MEDS: LACTULOSE 30ML CUP PO (09:04)
[2017-08-24] MEDS: LUBIPROSTONE 24 MCG CAP PO ×2 (09:04→21:06)
[2017-08-24] MEDS: CLOPIDOGREL 75 MG TAB PO (09:04)
[2017-08-24] MEDS: FOLIC ACID 1 MG TAB PO (09:04)
[2017-08-24] MEDS: POLYETHYLENE GLYCOL 17 GM PACKET GTB (09:04)
[2017-08-24] MEDS: HYDROXYUREA 500 MG CAP PO ×2 (09:05→21:08)
[2017-08-24] MEDS: APIXABAN 5 MG TABLET PO ×2 (09:06→21:06)
[2017-08-24 09:38] LABS: ADD MAN DIFF? NO
[2017-08-24 09:44] LABS: BASOPHIL # 0.1 10^3/ul (0.0-0.1); BASOPHILS % 0.9 % (0.0-2.0); EOSINOPHILS # 0.6 10^3/ul (0.0-0.5); EOSINOPHILS % 5.3 % (0.0-7.0); HEMOGLOBIN 8.3 g/dl (12.0-16.0); LYMPHOCYTES # 3.3 10^3/ul (0.8-2.9); LYMPHOCYTES % 27.7 % (15.0-51.0); MEAN CORPUSCULAR HEMOGLOBIN 29.7 pg (29.0-33.0); MEAN CORPUSCULAR HGB CONC 33.2 g/dl (32.0-37.0); MEAN CORPUSCULAR VOLUME 89.6 fl (82.0-101.0); MEAN PLATELET VOLUME 10.8 fl (7.4-10.4); MONOCYTE # 1.1 10^3/ul (0.3-0.9); MONOCYTES % 9.5 % (0.0-11.0); NEUTROPHIL # 6.7 10^3/ul (1.6-7.5); NUCLEATED RED BLOOD CELLS # 0.1 10^3/ul (0.0-0.0); NUCLEATED RED BLOOD CELLS% 0.6 /100WBC (0.0-0.0); PLATELET COUNT 330 10^3/UL (140-415); RED BLOOD COUNT 2.79 10^6/ul (4.20-5.40); RED CELL DISTRIBUTION WIDTH 16.9 % (11.5-14.5)
[2017-08-24 10:07] LABS: ANION GAP 17 (8-16); BLOOD UREA NITROGEN 16 mg/dl (7-20); CALCIUM 8.8 mg/dl (8.4-10.2); CARBON DIOXIDE 30 mmol/L (21-31); CHLORIDE 97 mmol/L (97-110); CREATININE 0.82 mg/dl (0.44-1.00); GLUCOSE 114 mg/dl (70-220); POTASSIUM 4.5 mmol/L (3.5-5.1); SODIUM 139 mmol/L (135-144)
[2017-08-24] MEDS: SOD CHLORIDE 0.45% 1,000 ML IV (11:09)
[2017-08-25] MEDS: DIPHENHYDRAMINE 50 MG INJ IV ×6 (02:48→22:46)
[2017-08-25] MEDS: ONDANSETRON 4 MG INJ IV ×2 (02:48→22:47)
[2017-08-25] MEDS: morphine 10 MG INJ IV ×6 (02:48→22:46)
[2017-08-25] MEDS: SOD CHLORIDE 0.45% 1,000 ML IV ×2 (02:49→19:20)
[2017-08-25] MEDS: PANTOPRAZOLE (EC) 40 MG TAB PO ×2 (06:58→18:45)
[2017-08-25] MEDS: POLYETHYLENE GLYCOL 17 GM PACKET GTB (09:00)
[2017-08-25] MEDS: FOLIC ACID 1 MG TAB PO (09:35)
[2017-08-25] MEDS: LACTULOSE 30ML CUP PO (09:35)
[2017-08-25] MEDS: APIXABAN 5 MG TABLET PO ×2 (09:36→20:36)
[2017-08-25] MEDS: CLOPIDOGREL 75 MG TAB PO (09:36)
[2017-08-25] MEDS: LUBIPROSTONE 24 MCG CAP PO ×2 (09:36→20:35)
[2017-08-25] MEDS: HYDROXYUREA 500 MG CAP PO ×2 (09:37→20:43)
[2017-08-25 15:23] LABS: ADD MAN DIFF? NO
[2017-08-25 15:24] LABS: WHITE BLOOD COUNT 12.1 10^3/ul (4.8-10.8)
[2017-08-25 15:24] LABS: ABNORMAL IP MESSAGE 1; BASOPHIL # 0.1 10^3/ul (0.0-0.1); BASOPHILS % 0.7 % (0.0-2.0); EOSINOPHILS # 0.7 10^3/ul (0.0-0.5); HEMATOCRIT 23.6 % (37.0-47.0); HEMOGLOBIN 7.9 g/dl (12.0-16.0); LYMPHOCYTES # 4.3 10^3/ul (0.8-2.9); LYMPHOCYTES % 35.8 % (15.0-51.0); MEAN CORPUSCULAR HEMOGLOBIN 30.2 pg (29.0-33.0); MEAN CORPUSCULAR HGB CONC 33.5 g/dl (32.0-37.0); MEAN CORPUSCULAR VOLUME 90.1 fl (82.0-101.0); MEAN PLATELET VOLUME 10.2 fl (7.4-10.4); MONOCYTE # 1.7 10^3/ul (0.3-0.9); MONOCYTES % 13.9 % (0.0-11.0); NEUTROPHIL # 5.2 10^3/ul (1.6-7.5); NEUTROPHILS % 42.9 % (39.0-77.0); NUCLEATED RED BLOOD CELLS # 0.1 10^3/ul (0.0-0.0); NUCLEATED RED BLOOD CELLS% 0.7 /100WBC (0.0-0.0); PLATELET COUNT 320 10^3/UL (140-415); RED BLOOD COUNT 2.62 10^6/ul (4.20-5.40)
[2017-08-25 15:32] LABS: POSITIVE DIFF @See below
[2017-08-25 15:45] LABS: ANION GAP 12 (8-16); BLOOD UREA NITROGEN 14 mg/dl (7-20); CALCIUM 8.8 mg/dl (8.4-10.2); CARBON DIOXIDE 28 mmol/L (21-31); CHLORIDE 103 mmol/L (97-110); CREATININE 0.79 mg/dl (0.44-1.00); GLUCOSE 96 mg/dl (70-220); POTASSIUM 4.3 mmol/L (3.5-5.1); SODIUM 139 mmol/L (135-144)
[2017-08-25 22:37] LABS: IMMEDIATE SPIN CROSSMATCH 1 1
[2017-08-26] MEDS: DIPHENHYDRAMINE 50 MG INJ IV ×6 (02:38→23:59)
[2017-08-26] MEDS: morphine 10 MG INJ IV ×6 (02:39→23:59)
[2017-08-26] MEDS: PANTOPRAZOLE (EC) 40 MG TAB PO ×2 (06:32→18:05)
[2017-08-26] MEDS: SOD CHLORIDE 0.45% 1,000 ML IV ×2 (06:32→12:00)
[2017-08-26] MEDS: APIXABAN 5 MG TABLET PO ×2 (08:27→20:30)
[2017-08-26] MEDS: HYDROXYUREA 500 MG CAP PO ×2 (08:33→20:34)
[2017-08-26] MEDS: LUBIPROSTONE 24 MCG CAP PO ×2 (08:34→20:30)
[2017-08-26] MEDS: CLOPIDOGREL 75 MG TAB PO (08:34)
[2017-08-26] MEDS: LACTULOSE 30ML CUP PO (08:34)
[2017-08-26] MEDS: FOLIC ACID 1 MG TAB PO (08:34)
[2017-08-26] MEDS: POLYETHYLENE GLYCOL 17 GM PACKET GTB (08:36)
[2017-08-26 12:26] LABS: ADD MAN DIFF? NO
[2017-08-26 12:42] LABS: BASOPHIL # 0.1 10^3/ul (0.0-0.1); BASOPHILS % 0.7 % (0.0-2.0); EOSINOPHILS # 0.5 10^3/ul (0.0-0.5); EOSINOPHILS % 4.4 % (0.0-7.0); HEMATOCRIT 28.8 % (37.0-47.0); HEMOGLOBIN 9.4 g/dl (12.0-16.0); LYMPHOCYTES # 3.7 10^3/ul (0.8-2.9); LYMPHOCYTES % 31.7 % (15.0-51.0); MEAN CORPUSCULAR HEMOGLOBIN 29.5 pg (29.0-33.0); MEAN CORPUSCULAR HGB CONC 32.6 g/dl (32.0-37.0); MEAN CORPUSCULAR VOLUME 90.3 fl (82.0-101.0); MEAN PLATELET VOLUME 10.8 fl (7.4-10.4); MONOCYTE # 1.5 10^3/ul (0.3-0.9); NEUTROPHIL # 5.6 10^3/ul (1.6-7.5); NUCLEATED RED BLOOD CELLS # 0.1 10^3/ul (0.0-0.0); NUCLEATED RED BLOOD CELLS% 0.6 /100WBC (0.0-0.0); PLATELET COUNT 313 10^3/UL (140-415); RED BLOOD COUNT 3.19 10^6/ul (4.20-5.40); RED CELL DISTRIBUTION WIDTH 16.4 % (11.5-14.5)
[2017-08-26 12:42] LABS: WHITE BLOOD COUNT 11.5 10^3/ul (4.8-10.8)
[2017-08-26] MEDS: BISACODYL (EC) 5 MG TAB PO (13:25)
[2017-08-26] MEDS: ONDANSETRON 4 MG INJ IV (20:25)
[2017-08-27] MEDS: DIPHENHYDRAMINE 50 MG INJ IV ×5 (04:22→20:30)
[2017-08-27] MEDS: SOD CHLORIDE 0.45% 1,000 ML IV ×2 (04:22→20:30)
[2017-08-27] MEDS: morphine 10 MG INJ IV ×5 (04:22→20:30)
[2017-08-27] MEDS: PANTOPRAZOLE (EC) 40 MG TAB PO ×2 (08:34→17:50)
[2017-08-27] MEDS: LUBIPROSTONE 24 MCG CAP PO ×2 (08:34→20:29)
[2017-08-27] MEDS: CLOPIDOGREL 75 MG TAB PO (08:34)
[2017-08-27] MEDS: FOLIC ACID 1 MG TAB PO (08:34)
[2017-08-27] MEDS: POLYETHYLENE GLYCOL 17 GM PACKET GTB (08:35)
[2017-08-27] MEDS: LACTULOSE 30ML CUP PO (08:35)
[2017-08-27] MEDS: APIXABAN 5 MG TABLET PO ×2 (08:35→20:30)
[2017-08-27] MEDS: HYDROXYUREA 500 MG CAP PO ×2 (08:53→20:41)
[2017-08-27] MEDS: BISACODYL (EC) 5 MG TAB PO (12:27)
[2017-08-28] MEDS: DIPHENHYDRAMINE 50 MG INJ IV ×6 (00:22→20:32)
[2017-08-28] MEDS: morphine 10 MG INJ IV ×6 (00:23→20:33)
[2017-08-28] MEDS: PANTOPRAZOLE (EC) 40 MG TAB PO ×3 (05:27→17:42)
[2017-08-28] MEDS: POLYETHYLENE GLYCOL 17 GM PACKET GTB (08:30)
[2017-08-28] MEDS: LACTULOSE 30ML CUP PO (08:31)
[2017-08-28] MEDS: APIXABAN 5 MG TABLET PO ×2 (08:32→20:32)
[2017-08-28] MEDS: LUBIPROSTONE 24 MCG CAP PO ×2 (08:32→20:32)
[2017-08-28] MEDS: FOLIC ACID 1 MG TAB PO (08:32)
[2017-08-28] MEDS: CLOPIDOGREL 75 MG TAB PO (08:32)
[2017-08-28] MEDS: HYDROXYUREA 500 MG CAP PO ×2 (08:35→20:48)
[2017-08-28] MEDS: SOD CHLORIDE 0.45% 1,000 ML IV ×2 (13:39→20:00)
[2017-08-28] MEDS: MAGNESIUM CITRATE 300 ML BTL PO (16:34)
[2017-08-29] MEDS: morphine 10 MG INJ IV ×6 (00:29→21:39)
[2017-08-29] MEDS: DIPHENHYDRAMINE 50 MG INJ IV ×6 (00:29→21:39)
[2017-08-29] MEDS: PANTOPRAZOLE (EC) 40 MG TAB PO ×2 (05:09→17:45)
[2017-08-29] MEDS: SOD CHLORIDE 0.45% 1,000 ML IV ×2 (05:36→05:53)
[2017-08-29] MEDS: POLYETHYLENE GLYCOL 17 GM PACKET GTB (08:38)
[2017-08-29] MEDS: LUBIPROSTONE 24 MCG CAP PO ×2 (08:38→21:43)
[2017-08-29] MEDS: LACTULOSE 30ML CUP PO (08:38)
[2017-08-29] MEDS: APIXABAN 5 MG TABLET PO ×2 (08:39→21:43)
[2017-08-29] MEDS: FOLIC ACID 1 MG TAB PO (08:39)
[2017-08-29] MEDS: CLOPIDOGREL 75 MG TAB PO (08:40)
[2017-08-29] MEDS: HYDROXYUREA 500 MG CAP PO ×2 (08:49→21:44)
[2017-08-29] MEDS: METHYLNALTREXONE 12 MG/0.6 ML VIAL SC (15:13)
[2017-08-29] MEDS: ONDANSETRON 4 MG INJ IV (16:36)
[2017-08-30] MEDS: SOD CHLORIDE 0.45% 1,000 ML IV ×2 (01:45→17:42)
[2017-08-30] MEDS: morphine 10 MG INJ IV ×6 (01:46→21:31)
[2017-08-30] MEDS: DIPHENHYDRAMINE 50 MG INJ IV ×6 (01:46→21:31)
[2017-08-30] MEDS: ONDANSETRON 4 MG INJ IV (05:45)
[2017-08-30] MEDS: PANTOPRAZOLE (EC) 40 MG TAB PO ×2 (05:46→17:41)
[2017-08-30 06:10] LABS: ADD MAN DIFF? NO
[2017-08-30 06:17] LABS: BASOPHIL # 0.1 10^3/ul (0.0-0.1); BASOPHILS % 1.1 % (0.0-2.0); EOSINOPHILS # 0.7 10^3/ul (0.0-0.5); EOSINOPHILS % 7.9 % (0.0-7.0); HEMATOCRIT 26.9 % (37.0-47.0); HEMOGLOBIN 8.8 g/dl (12.0-16.0); LYMPHOCYTES # 4.2 10^3/ul (0.8-2.9); LYMPHOCYTES % 46.9 % (15.0-51.0); MEAN CORPUSCULAR HEMOGLOBIN 29.3 pg (29.0-33.0); MEAN CORPUSCULAR HGB CONC 32.7 g/dl (32.0-37.0); MEAN CORPUSCULAR VOLUME 89.7 fl (82.0-101.0); MEAN PLATELET VOLUME 10.4 fl (7.4-10.4); MONOCYTE # 1.2 10^3/ul (0.3-0.9); MONOCYTES % 13.2 % (0.0-11.0); NEUTROPHIL # 2.7 10^3/ul (1.6-7.5); NEUTROPHILS % 30.2 % (39.0-77.0); NUCLEATED RED BLOOD CELLS # 0.1 10^3/ul (0.0-0.0); NUCLEATED RED BLOOD CELLS% 0.6 /100WBC (0.0-0.0); PLATELET COUNT 229 10^3/UL (140-415); RED CELL DISTRIBUTION WIDTH 17.5 % (11.5-14.5)
[2017-08-30 06:52] LABS: ANION GAP 13 (8-16); BLOOD UREA NITROGEN 13 mg/dl (7-20); CALCIUM 8.7 mg/dl (8.4-10.2); CARBON DIOXIDE 25 mmol/L (21-31); CHLORIDE 107 mmol/L (97-110); CREATININE 0.85 mg/dl (0.44-1.00); GLUCOSE 124 mg/dl (70-220); POTASSIUM 4.8 mmol/L (3.5-5.1); SODIUM 140 mmol/L (135-144)
[2017-08-30] MEDS: APIXABAN 5 MG TABLET PO ×2 (08:44→21:31)
[2017-08-30] MEDS: LUBIPROSTONE 24 MCG CAP PO ×2 (08:44→21:31)
[2017-08-30] MEDS: CLOPIDOGREL 75 MG TAB PO (08:45)
[2017-08-30] MEDS: LACTULOSE 30ML CUP PO (08:45)
[2017-08-30] MEDS: FOLIC ACID 1 MG TAB PO (08:45)
[2017-08-30] MEDS: POLYETHYLENE GLYCOL 17 GM PACKET GTB (08:46)
[2017-08-30] MEDS: HYDROXYUREA 500 MG CAP PO ×2 (09:02→21:40)
[2017-08-31] MEDS: morphine 10 MG INJ IV ×6 (01:27→21:31)
[2017-08-31] MEDS: DIPHENHYDRAMINE 50 MG INJ IV ×6 (01:27→21:31)
[2017-08-31] MEDS: ONDANSETRON 4 MG INJ IV ×2 (05:27→21:31)
[2017-08-31] MEDS: PANTOPRAZOLE (EC) 40 MG TAB PO ×2 (05:32→17:31)
[2017-08-31] MEDS: LUBIPROSTONE 24 MCG CAP PO ×2 (09:28→21:31)
[2017-08-31] MEDS: POLYETHYLENE GLYCOL 17 GM PACKET GTB (09:28)
[2017-08-31] MEDS: FOLIC ACID 1 MG TAB PO (09:28)
[2017-08-31] MEDS: CLOPIDOGREL 75 MG TAB PO (09:28)
[2017-08-31] MEDS: APIXABAN 5 MG TABLET PO ×2 (09:28→21:31)
[2017-08-31] MEDS: LACTULOSE 30ML CUP PO (09:28)
[2017-08-31] MEDS: SOD CHLORIDE 0.45% 1,000 ML IV (09:29)
[2017-08-31] MEDS: HYDROXYUREA 500 MG CAP PO ×2 (09:39→21:51)
[2017-09-01] MEDS: SOD CHLORIDE 0.45% 1,000 ML IV ×3 (01:20→16:49)
[2017-09-01] MEDS: morphine 10 MG INJ IV ×6 (01:26→21:38)
[2017-09-01] MEDS: DIPHENHYDRAMINE 50 MG INJ IV ×6 (01:26→21:38)
[2017-09-01] MEDS: PANTOPRAZOLE (EC) 40 MG TAB PO ×2 (05:31→17:36)
[2017-09-01] MEDS: ONDANSETRON 4 MG INJ IV (05:31)
[2017-09-01] MEDS: POLYETHYLENE GLYCOL 17 GM PACKET GTB (09:32)
[2017-09-01] MEDS: FOLIC ACID 1 MG TAB PO (09:33)
[2017-09-01] MEDS: LACTULOSE 30ML CUP PO (09:33)
[2017-09-01] MEDS: LUBIPROSTONE 24 MCG CAP PO ×2 (09:33→21:39)
[2017-09-01] MEDS: APIXABAN 5 MG TABLET PO ×2 (09:33→21:36)
[2017-09-01] MEDS: CLOPIDOGREL 75 MG TAB PO (09:33)
[2017-09-01] MEDS: HYDROXYUREA 500 MG CAP PO ×2 (09:36→21:38)
[2017-09-02] MEDS: DIPHENHYDRAMINE 50 MG INJ IV ×6 (01:33→21:48)
[2017-09-02] MEDS: morphine 10 MG INJ IV ×6 (01:33→21:48)
[2017-09-02] MEDS: ONDANSETRON 4 MG INJ IV (01:33)
[2017-09-02] MEDS: PANTOPRAZOLE (EC) 40 MG TAB PO ×2 (05:43→18:07)
[2017-09-02 06:04] LABS: ADD MAN DIFF? NO
[2017-09-02 06:07] LABS: BASOPHIL # 0.1 10^3/ul (0.0-0.1); BASOPHILS % 0.5 % (0.0-2.0); EOSINOPHILS # 0.6 10^3/ul (0.0-0.5); EOSINOPHILS % 2.9 % (0.0-7.0); HEMATOCRIT 25.7 % (37.0-47.0); HEMOGLOBIN 8.5 g/dl (12.0-16.0); LYMPHOCYTES # 3.5 10^3/ul (0.8-2.9); LYMPHOCYTES % 18.4 % (15.0-51.0); MEAN CORPUSCULAR HEMOGLOBIN 29.9 pg (29.0-33.0); MEAN CORPUSCULAR HGB CONC 33.1 g/dl (32.0-37.0); MEAN CORPUSCULAR VOLUME 90.5 fl (82.0-101.0); MEAN PLATELET VOLUME 10.4 fl (7.4-10.4); MONOCYTES % 5.4 % (0.0-11.0); NEUTROPHIL # 13.8 10^3/ul (1.6-7.5); NUCLEATED RED BLOOD CELLS% 0.2 /100WBC (0.0-0.0); PLATELET COUNT 214 10^3/UL (140-415); RED BLOOD COUNT 2.84 10^6/ul (4.20-5.40); RED CELL DISTRIBUTION WIDTH 17.2 % (11.5-14.5)
[2017-09-02 06:07] LABS: WHITE BLOOD COUNT 19.2 10^3/ul (4.8-10.8)
[2017-09-02 06:32] LABS: ANION GAP 14 (8-16); BLOOD UREA NITROGEN 15 mg/dl (7-20); CALCIUM 8.5 mg/dl (8.4-10.2); CARBON DIOXIDE 27 mmol/L (21-31); CHLORIDE 102 mmol/L (97-110); CREATININE 0.78 mg/dl (0.44-1.00); GLUCOSE 99 mg/dl (70-220); POTASSIUM 4.4 mmol/L (3.5-5.1); SODIUM 139 mmol/L (135-144)
[2017-09-02] MEDS: FOLIC ACID 1 MG TAB PO (09:28)
[2017-09-02] MEDS: LUBIPROSTONE 24 MCG CAP PO ×2 (09:28→21:08)
[2017-09-02] MEDS: APIXABAN 5 MG TABLET PO ×2 (09:28→21:08)
[2017-09-02] MEDS: CLOPIDOGREL 75 MG TAB PO (09:29)
[2017-09-02] MEDS: HYDROXYUREA 500 MG CAP PO ×2 (09:29→21:15)
[2017-09-02] MEDS: POLYETHYLENE GLYCOL 17 GM PACKET GTB (09:30)
[2017-09-02] MEDS: LACTULOSE 30ML CUP PO (09:30)
[2017-09-02 11:04] LABS: LACTIC ACID 0.8 mmol/L (0.5-2.0)
[2017-09-02] MEDS: SOD CHLORIDE 0.45% 1,000 ML IV (11:44)
[2017-09-02] MEDS: MEROPENEM 1 GM/50ML(PMX) 50 ML IVPB ×2 (14:08→21:48)
[2017-09-02 14:40] LABS: ADD UMIC YES; UR ASCORBIC ACID NEGATIVE (NEGATIVE); UR BILIRUBIN (Dip) NEGATIVE (NEGATIVE); UR BLOOD (Dip) 1+ mg/dL (NEGATIVE); UR CLARITY CLEAR (CLEAR); UR COLOR YELLOW (YELLOW); UR GLUCOSE (Dip) NEGATIVE (NEGATIVE); UR KETONES (Dip) NEGATIVE (NEGATIVE); UR LEUKOCYTE ESTERASE (Dip) NEGATIVE Leu/ul (NEGATIVE); UR NITRITE (Dip) NEGATIVE (NEGATIVE); UR RBC 0 /HPF (0-5); UR TOTAL PROTEIN (Dip) NEGATIVE (NEGATIVE); UR UROBILINOGEN (Dip) NEGATIVE (NEGATIVE); UR WBC 1 /HPF (0-5)
[2017-09-02] MEDS: DOCUSATE SODIUM 100 MG CAP PO (21:08)
[2017-09-03] MEDS: DIPHENHYDRAMINE 50 MG INJ IV ×6 (01:59→22:02)
[2017-09-03] MEDS: morphine 10 MG INJ IV ×6 (01:59→22:02)
[2017-09-03] MEDS: SOD CHLORIDE 0.45% 1,000 ML IV ×3 (03:20→20:00)
[2017-09-03] MEDS: ACETAMINOPHEN 325 MG TAB PO ×2 (03:29→16:02)
[2017-09-03] MEDS: MEROPENEM 1 GM/50ML(PMX) 50 ML IVPB ×3 (06:07→22:02)
[2017-09-03] MEDS: PANTOPRAZOLE (EC) 40 MG TAB PO ×2 (06:11→18:05)
[2017-09-03] MEDS: POLYETHYLENE GLYCOL 17 GM PACKET GTB (09:52)
[2017-09-03] MEDS: DOCUSATE SODIUM 100 MG CAP PO ×2 (09:53→22:01)
[2017-09-03] MEDS: LUBIPROSTONE 24 MCG CAP PO ×2 (09:53→22:01)
[2017-09-03] MEDS: LACTULOSE 30ML CUP PO (09:53)
[2017-09-03] MEDS: APIXABAN 5 MG TABLET PO ×2 (09:53→22:01)
[2017-09-03] MEDS: CLOPIDOGREL 75 MG TAB PO (09:53)
[2017-09-03] MEDS: FOLIC ACID 1 MG TAB PO (09:53)
[2017-09-03] MEDS: HYDROXYUREA 500 MG CAP PO ×2 (09:57→22:10)
[2017-09-03 13:16] LABS: ADD MAN DIFF? NO
[2017-09-03 13:19] LABS: WHITE BLOOD COUNT 14.5 10^3/ul (4.8-10.8)
[2017-09-03 13:19] LABS: BASOPHIL # 0.1 10^3/ul (0.0-0.1); BASOPHILS % 0.6 % (0.0-2.0); EOSINOPHILS # 0.5 10^3/ul (0.0-0.5); EOSINOPHILS % 3.2 % (0.0-7.0); HEMATOCRIT 23.9 % (37.0-47.0); HEMOGLOBIN 7.8 g/dl (12.0-16.0); LYMPHOCYTES # 3.2 10^3/ul (0.8-2.9); MEAN CORPUSCULAR HGB CONC 32.6 g/dl (32.0-37.0); MEAN CORPUSCULAR VOLUME 88.8 fl (82.0-101.0); MEAN PLATELET VOLUME 10.6 fl (7.4-10.4); MONOCYTE # 1.4 10^3/ul (0.3-0.9); MONOCYTES % 9.9 % (0.0-11.0); NEUTROPHIL # 9.2 10^3/ul (1.6-7.5); NEUTROPHILS % 63.4 % (39.0-77.0); NUCLEATED RED BLOOD CELLS # 0.1 10^3/ul (0.0-0.0); NUCLEATED RED BLOOD CELLS% 0.4 /100WBC (0.0-0.0); PLATELET COUNT 250 10^3/UL (140-415); RED BLOOD COUNT 2.69 10^6/ul (4.20-5.40); RED CELL DISTRIBUTION WIDTH 17.3 % (11.5-14.5)
[2017-09-03 13:47] LABS: ANION GAP 13 (8-16); BLOOD UREA NITROGEN 9 mg/dl (7-20); CALCIUM 8.6 mg/dl (8.4-10.2); CARBON DIOXIDE 26 mmol/L (21-31); CHLORIDE 105 mmol/L (97-110); GLUCOSE 109 mg/dl (70-220); POTASSIUM 4.3 mmol/L (3.5-5.1); SODIUM 140 mmol/L (135-144)
[2017-09-04] MEDS: morphine 10 MG INJ IV ×6 (02:00→21:57)
[2017-09-04] MEDS: DIPHENHYDRAMINE 50 MG INJ IV ×6 (02:00→21:56)
[2017-09-04] MEDS: MEROPENEM 1 GM/50ML(PMX) 50 ML IVPB ×3 (05:57→21:55)
[2017-09-04] MEDS: PANTOPRAZOLE (EC) 40 MG TAB PO ×2 (05:57→18:06)
[2017-09-04] MEDS: CLOPIDOGREL 75 MG TAB PO (09:13)
[2017-09-04] MEDS: APIXABAN 5 MG TABLET PO ×2 (09:13→21:55)
[2017-09-04] MEDS: LUBIPROSTONE 24 MCG CAP PO ×2 (09:13→21:54)
[2017-09-04] MEDS: FOLIC ACID 1 MG TAB PO (09:13)
[2017-09-04] MEDS: DOCUSATE SODIUM 100 MG CAP PO ×2 (09:13→21:55)
[2017-09-04] MEDS: LACTULOSE 30ML CUP PO (09:14)
[2017-09-04] MEDS: POLYETHYLENE GLYCOL 17 GM PACKET GTB (09:14)
[2017-09-04] MEDS: HYDROXYUREA 500 MG CAP PO ×2 (09:15→22:03)
[2017-09-04 11:49] LABS: ADD MAN DIFF? NO
[2017-09-04 11:50] LABS: BASOPHIL # 0.1 10^3/ul (0.0-0.1); EOSINOPHILS # 0.4 10^3/ul (0.0-0.5); EOSINOPHILS % 4.8 % (0.0-7.0); HEMATOCRIT 24.9 % (37.0-47.0); HEMOGLOBIN 8.2 g/dl (12.0-16.0); LYMPHOCYTES # 2.6 10^3/ul (0.8-2.9); MEAN CORPUSCULAR HEMOGLOBIN 29.6 pg (29.0-33.0); MEAN CORPUSCULAR HGB CONC 32.9 g/dl (32.0-37.0); MEAN CORPUSCULAR VOLUME 89.9 fl (82.0-101.0); MEAN PLATELET VOLUME 10.4 fl (7.4-10.4); MONOCYTES % 10.9 % (0.0-11.0); NEUTROPHIL # 4.8 10^3/ul (1.6-7.5); NEUTROPHILS % 53.6 % (39.0-77.0); NUCLEATED RED BLOOD CELLS% 0.4 /100WBC (0.0-0.0); PLATELET COUNT 281 10^3/UL (140-415); RED BLOOD COUNT 2.77 10^6/ul (4.20-5.40); RED CELL DISTRIBUTION WIDTH 17.2 % (11.5-14.5)
[2017-09-04 12:14] LABS: ANION GAP 12 (8-16); BLOOD UREA NITROGEN 7 mg/dl (7-20); CARBON DIOXIDE 27 mmol/L (21-31); CHLORIDE 105 mmol/L (97-110); CREATININE 0.67 mg/dl (0.44-1.00); GLUCOSE 112 mg/dl (70-220); POTASSIUM 4.4 mmol/L (3.5-5.1); SODIUM 140 mmol/L (135-144)
[2017-09-04] MEDS: SOD CHLORIDE 0.45% 1,000 ML IV (13:08)
[2017-09-05] MEDS: DIPHENHYDRAMINE 50 MG INJ IV ×6 (01:55→22:08)
[2017-09-05] MEDS: morphine 10 MG INJ IV ×6 (01:56→22:08)
[2017-09-05] MEDS: SOD CHLORIDE 0.45% 1,000 ML IV ×3 (05:20→22:00)
[2017-09-05] MEDS: MEROPENEM 1 GM/50ML(PMX) 50 ML IVPB ×3 (05:52→22:08)
[2017-09-05] MEDS: PANTOPRAZOLE (EC) 40 MG TAB PO ×2 (06:06→18:02)
[2017-09-05 06:27] LABS: ADD MAN DIFF? NO
[2017-09-05 06:29] LABS: WHITE BLOOD COUNT 9.6 10^3/ul (4.8-10.8)
[2017-09-05 06:29] LABS: BASOPHIL # 0.1 10^3/ul (0.0-0.1); BASOPHILS % 1.4 % (0.0-2.0); EOSINOPHILS # 0.6 10^3/ul (0.0-0.5); EOSINOPHILS % 6.5 % (0.0-7.0); HEMATOCRIT 24.7 % (37.0-47.0); HEMOGLOBIN 8.2 g/dl (12.0-16.0); LYMPHOCYTES % 41.9 % (15.0-51.0); MEAN CORPUSCULAR HEMOGLOBIN 29.8 pg (29.0-33.0); MEAN CORPUSCULAR HGB CONC 33.2 g/dl (32.0-37.0); MEAN CORPUSCULAR VOLUME 89.8 fl (82.0-101.0); MEAN PLATELET VOLUME 10.8 fl (7.4-10.4); MONOCYTE # 1.3 10^3/ul (0.3-0.9); MONOCYTES % 13.6 % (0.0-11.0); NEUTROPHIL # 3.5 10^3/ul (1.6-7.5); NUCLEATED RED BLOOD CELLS% 0.4 /100WBC (0.0-0.0); PLATELET COUNT 296 10^3/UL (140-415); RED BLOOD COUNT 2.75 10^6/ul (4.20-5.40); RED CELL DISTRIBUTION WIDTH 17.3 % (11.5-14.5)
[2017-09-05 06:54] LABS: ANION GAP 12 (8-16); BLOOD UREA NITROGEN 8 mg/dl (7-20); CALCIUM 8.7 mg/dl (8.4-10.2); CARBON DIOXIDE 27 mmol/L (21-31); CHLORIDE 106 mmol/L (97-110); CREATININE 0.67 mg/dl (0.44-1.00); GLUCOSE 95 mg/dl (70-220); POTASSIUM 4.6 mmol/L (3.5-5.1); SODIUM 140 mmol/L (135-144)
[2017-09-05] MEDS: POLYETHYLENE GLYCOL 17 GM PACKET GTB ×2 (09:00→12:12)
[2017-09-05] MEDS: FOLIC ACID 1 MG TAB PO (09:53)
[2017-09-05] MEDS: LACTULOSE 30ML CUP PO (09:53)
[2017-09-05] MEDS: CLOPIDOGREL 75 MG TAB PO (09:53)
[2017-09-05] MEDS: DOCUSATE SODIUM 100 MG CAP PO ×2 (09:53→22:08)
[2017-09-05] MEDS: LUBIPROSTONE 24 MCG CAP PO ×2 (09:53→22:06)
[2017-09-05] MEDS: APIXABAN 5 MG TABLET PO ×2 (09:53→22:06)
[2017-09-05] MEDS: HYDROXYUREA 500 MG CAP PO ×2 (10:41→22:22)
[2017-09-05] MEDS: ONDANSETRON 4 MG INJ IV (22:08)
[2017-09-06] MEDS: morphine 10 MG INJ IV ×6 (02:02→21:57)
[2017-09-06] MEDS: DIPHENHYDRAMINE 50 MG INJ IV ×6 (02:02→21:57)
[2017-09-06 05:37] LABS: WHITE BLOOD COUNT 4.8 10^3/ul (4.8-10.8)
[2017-09-06 05:37] LABS: ADD MAN DIFF? NO; BASOPHILS % 0.8 % (0.0-2.0); EOSINOPHILS # 0.1 10^3/ul (0.0-0.5); EOSINOPHILS % 2.3 % (0.0-7.0); HEMATOCRIT 24.6 % (37.0-47.0); LYMPHOCYTES # 2.9 10^3/ul (0.8-2.9); LYMPHOCYTES % 59.3 % (15.0-51.0); MEAN CORPUSCULAR HEMOGLOBIN 29.2 pg (29.0-33.0); MEAN CORPUSCULAR HGB CONC 32.5 g/dl (32.0-37.0); MEAN CORPUSCULAR VOLUME 89.8 fl (82.0-101.0); MEAN PLATELET VOLUME 10.5 fl (7.4-10.4); MONOCYTE # 0.2 10^3/ul (0.3-0.9); MONOCYTES % 3.5 % (0.0-11.0); NEUTROPHIL # 1.6 10^3/ul (1.6-7.5); NEUTROPHILS % 33.5 % (39.0-77.0); NUCLEATED RED BLOOD CELLS% 0.6 /100WBC (0.0-0.0); PLATELET COUNT 239 10^3/UL (140-415); RED BLOOD COUNT 2.74 10^6/ul (4.20-5.40); RED CELL DISTRIBUTION WIDTH 17.4 % (11.5-14.5)
[2017-09-06] MEDS: MEROPENEM 1 GM/50ML(PMX) 50 ML IVPB ×3 (06:01→20:47)
[2017-09-06] MEDS: PANTOPRAZOLE (EC) 40 MG TAB PO ×2 (06:01→18:02)
[2017-09-06 06:37] LABS: ANION GAP 14 (8-16); BLOOD UREA NITROGEN 9 mg/dl (7-20); CALCIUM 8.7 mg/dl (8.4-10.2); CARBON DIOXIDE 26 mmol/L (21-31); CHLORIDE 105 mmol/L (97-110); CREATININE 0.74 mg/dl (0.44-1.00); GLUCOSE 102 mg/dl (70-220); POTASSIUM 4.3 mmol/L (3.5-5.1); SODIUM 141 mmol/L (135-144)
[2017-09-06] MEDS: LACTULOSE 30ML CUP PO (10:14)
[2017-09-06] MEDS: CLOPIDOGREL 75 MG TAB PO (10:15)
[2017-09-06] MEDS: APIXABAN 5 MG TABLET PO ×2 (10:15→20:47)
[2017-09-06] MEDS: LUBIPROSTONE 24 MCG CAP PO ×2 (10:15→20:47)
[2017-09-06] MEDS: DOCUSATE SODIUM 100 MG CAP PO ×2 (10:15→20:47)
[2017-09-06] MEDS: BISACODYL (EC) 5 MG TAB PO (10:16)
[2017-09-06] MEDS: POLYETHYLENE GLYCOL 17 GM PACKET GTB (10:16)
[2017-09-06] MEDS: FOLIC ACID 1 MG TAB PO (10:16)
[2017-09-06] MEDS: HYDROXYUREA 500 MG CAP PO ×2 (10:27→22:07)
[2017-09-06] MEDS: SOD CHLORIDE 0.45% 1,000 ML IV ×2 (12:09→14:40)
[2017-09-06] MEDS: ONDANSETRON 4 MG INJ IV (18:02)
[2017-09-06] MEDS: HEPARIN (100 UNITS/ML) 5 ML SYG CATHETER (20:51)
[2017-09-08 13:26] LABS: PROCALCITONIN 0.44 ng/mL (<0.10)
== END 2017-09-06 22:45 | disposition home or self-care (01) | DRG 871 ==
LOC: MS2 08-09 06:36 → E/R 13:54 → MS4 16:13
PROC: 3E0U33Z Introduction of Anti-inflammatory into Joints, Percutaneous Approach (ICD-10-PCS; principal; 2017-08-19)
PROC: 3E0U3BZ Introduction of Anesthetic Agent into Joints, Percutaneous Approach (ICD-10-PCS; 2017-08-19)
DX: A41.4 Sepsis due to anaerobes (principal); D57.00 Hb-SS disease with crisis, unspecified; N39.0 Urinary tract infection, site not specified; N17.9 Acute kidney failure, unspecified; E83.111 Hemochromatosis due to repeated red blood cell transfusions; J35.01 Chronic tonsillitis; B37.3 Candidiasis of vulva and vagina; M25.562 Pain in left knee; M25.561 Pain in right knee; K56.41 Fecal impaction; B27.90 Infectious mononucleosis, unspecified without complication; R79.89 Other specified abnormal findings of blood chemistry; Z86.711 Personal history of pulmonary embolism; B96.20 Unspecified Escherichia coli [E. coli] as the cause of diseases classified elsewhere
CPT/HCPCS: 36415; 36430; 71045; 73560; 74176; 76705; 76775; 78806; 80048; 80053; 80061; 80202; 81001; 81025; 82550; 82553; 83605; 83615; 84145; 84484; 85025; 85045; 86308; 86850; 86900; 86901; 86920; 87040; 87081; 87086; 93005; 93306; 93970; 96374; 96375; 96376; 99291-25

== ENCOUNTER 2017-09-16 08:21 | Inpatient (IN) | payer OTHER ==
[2017-09-16 09:15] LABS: ADD MAN DIFF? NO
[2017-09-16 09:25] LABS: WHITE BLOOD COUNT 13.5 10^3/ul (4.8-10.8)
[2017-09-16 09:25] LABS: BASOPHIL # 0.1 10^3/ul (0.0-0.1); EOSINOPHILS # 0.3 10^3/ul (0.0-0.5); EOSINOPHILS % 1.8 % (0.0-7.0); HEMATOCRIT 24.8 % (37.0-47.0); HEMOGLOBIN 8.3 g/dl (12.0-16.0); LYMPHOCYTES # 2.8 10^3/ul (0.8-2.9); LYMPHOCYTES % 20.6 % (15.0-51.0); MEAN CORPUSCULAR HEMOGLOBIN 29.7 pg (29.0-33.0); MEAN CORPUSCULAR HGB CONC 33.5 g/dl (32.0-37.0); MEAN CORPUSCULAR VOLUME 88.9 fl (82.0-101.0); MEAN PLATELET VOLUME 10.3 fl (7.4-10.4); MONOCYTE # 1.4 10^3/ul (0.3-0.9); MONOCYTES % 10.2 % (0.0-11.0); NEUTROPHIL # 8.8 10^3/ul (1.6-7.5); NEUTROPHILS % 64.8 % (39.0-77.0); NUCLEATED RED BLOOD CELLS # 0.3 10^3/ul (0.0-0.0); NUCLEATED RED BLOOD CELLS% 2.1 /100WBC (0.0-0.0); PLATELET COUNT 393 10^3/UL (140-415); RED BLOOD COUNT 2.79 10^6/ul (4.20-5.40)
[2017-09-16 09:29] LABS: ADD UMIC YES; UR ASCORBIC ACID NEGATIVE (NEGATIVE); UR BACTERIA FEW /HPF (NONE SEEN); UR BILIRUBIN (Dip) NEGATIVE (NEGATIVE); UR BLOOD (Dip) 2+ mg/dL (NEGATIVE); UR CLARITY CLEAR (CLEAR); UR COLOR AMBER (YELLOW); UR GLUCOSE (Dip) NEGATIVE (NEGATIVE); UR KETONES (Dip) NEGATIVE (NEGATIVE); UR LEUKOCYTE ESTERASE (Dip) NEGATIVE Leu/ul (NEGATIVE); UR MUCUS FEW /HPF (NONE SEEN); UR NITRITE (Dip) NEGATIVE (NEGATIVE); UR RBC 26 /HPF (0-5); UR SPECIFIC GRAVITY (Dip) 1.013 (1.003-1.030); UR TOTAL PROTEIN (Dip) 1+ mg/dl (NEGATIVE); UR UROBILINOGEN (Dip) NEGATIVE (NEGATIVE); UR WBC 2 /HPF (0-5)
[2017-09-16] MEDS: ONDANSETRON 4 MG INJ IV (09:32)
[2017-09-16] MEDS: morphine 4 MG/ML VIAL IV ×2 (09:32→10:34)
[2017-09-16] MEDS: LACTATED RINGER'S 1,000 ML IV (09:34)
[2017-09-16 09:37] LABS: ALANINE AMINOTRANSFERASE 100 IU/L (13-69); ALBUMIN 4.2 g/dl (3.3-4.9); ALBUMIN/GLOBULIN RATIO 1.05; ALKALINE PHOSPHATASE 103 IU/L (42-121); ANION GAP 14 (8-16); ASPARTATE AMINO TRANSFERASE 111 IU/L (15-46); BILIRUBIN,INDIRECT 2.3 mg/dl (0-1.1); BILIRUBIN,TOTAL 2.3 mg/dl (0.2-1.3); BLOOD UREA NITROGEN 11 mg/dl (7-20); CALCIUM 8.9 mg/dl (8.4-10.2); CARBON DIOXIDE 23 mmol/L (21-31); CHLORIDE 109 mmol/L (97-110); CREATININE 0.83 mg/dl (0.44-1.00); GLUCOSE 95 mg/dl (70-220); LIPASE 67 U/L (23-300); POTASSIUM 4.2 mmol/L (3.5-5.1); SODIUM 142 mmol/L (135-144); TOTAL PROTEIN 8.2 g/dl (6.1-8.1)
[2017-09-16 09:38] LABS: INR 1.14; PROTIME 14.8 Sec (11.9-14.9); PT RATIO 1.2
[2017-09-16 09:39] LABS: PARTIAL THROMBOPLASTIN TIME 31.5 Sec (25.0-35.0)
[2017-09-16 09:48] LABS: TROPONIN-I 0.016 ng/ml (0.000-0.120)
[2017-09-16] MEDS: SOD CHLORIDE 0.9% 1,000 ML IV (11:00)
[2017-09-16] MEDS ORDERED: DIPHENHYDRAMINE 50 MG INJ (12:12)
[2017-09-16] MEDS ORDERED: morphine 4 MG/ML VIAL IV ×2 (12:30→17:00)
[2017-09-16] MEDS ORDERED: NACL 0.9% 3 ML SYG IV (13:30)
[2017-09-16] MEDS ORDERED: morphine 2 MG INJ (16:31)
[2017-09-16] MEDS: DIPHENHYDRAMINE 50 MG INJ IV (16:40)
[2017-09-16] MEDS: morphine 2 MG INJ IV ×2 (16:40→20:42)
[2017-09-16] MEDS ORDERED: DEFERASIROX PO (17:00)
[2017-09-16] MEDS ORDERED: ONDANSETRON 4 MG TAB PO (17:00)
[2017-09-16] MEDS: ALBUTEROL HFA 8 GM INHALER INH (20:49)
[2017-09-16] MEDS: POLYETHYLENE GLYCOL 17 GM PACKET PO (20:49)
[2017-09-16] MEDS: JADENU 360 MG PO (20:49)
[2017-09-16] MEDS: APIXABAN 5 MG TABLET PO (20:49)
[2017-09-16] MEDS: JADENU 180 MG PO (20:50)
[2017-09-16] MEDS: HYDROXYUREA 500 MG CAP PO (21:35)
[2017-09-17] MEDS: ALBUTEROL HFA 8 GM INHALER INH ×7 (01:01→20:51)
[2017-09-17] MEDS: DIPHENHYDRAMINE 50 MG INJ IV ×7 (01:01→20:57)
[2017-09-17] MEDS: morphine 2 MG INJ IV ×6 (01:01→20:57)
[2017-09-17 06:02] LABS: ADD MAN DIFF? NO
[2017-09-17 06:17] LABS: BASOPHIL # 0.1 10^3/ul (0.0-0.1); BASOPHILS % 0.5 % (0.0-2.0); EOSINOPHILS # 0.3 10^3/ul (0.0-0.5); EOSINOPHILS % 2.5 % (0.0-7.0); HEMATOCRIT 21.1 % (37.0-47.0); HEMOGLOBIN 7.1 g/dl (12.0-16.0); LYMPHOCYTES # 2.9 10^3/ul (0.8-2.9); LYMPHOCYTES % 25.1 % (15.0-51.0); MEAN CORPUSCULAR HEMOGLOBIN 30.2 pg (29.0-33.0); MEAN CORPUSCULAR HGB CONC 33.6 g/dl (32.0-37.0); MEAN CORPUSCULAR VOLUME 89.8 fl (82.0-101.0); MEAN PLATELET VOLUME 11.2 fl (7.4-10.4); MONOCYTE # 0.6 10^3/ul (0.3-0.9); MONOCYTES % 4.8 % (0.0-11.0); NEUTROPHIL # 7.6 10^3/ul (1.6-7.5); NEUTROPHILS % 64.6 % (39.0-77.0); NUCLEATED RED BLOOD CELLS # 0.2 10^3/ul (0.0-0.0); NUCLEATED RED BLOOD CELLS% 1.3 /100WBC (0.0-0.0); PLATELET COUNT 236 10^3/UL (140-415); RED BLOOD COUNT 2.35 10^6/ul (4.20-5.40); RED CELL DISTRIBUTION WIDTH 18.3 % (11.5-14.5)
[2017-09-17 06:17] LABS: WHITE BLOOD COUNT 11.7 10^3/ul (4.8-10.8)
[2017-09-17 06:38] LABS: ALANINE AMINOTRANSFERASE 116 IU/L (13-69); ALBUMIN 3.6 g/dl (3.3-4.9); ALBUMIN/GLOBULIN RATIO 1.05; ALKALINE PHOSPHATASE 112 IU/L (42-121); ANION GAP 11 (8-16); ASPARTATE AMINO TRANSFERASE 129 IU/L (15-46); BLOOD UREA NITROGEN 11 mg/dl (7-20); CALCIUM 8.2 mg/dl (8.4-10.2); CARBON DIOXIDE 25 mmol/L (21-31); CHLORIDE 107 mmol/L (97-110); CREATININE 0.75 mg/dl (0.44-1.00); GLUCOSE 96 mg/dl (70-220); POTASSIUM 4.4 mmol/L (3.5-5.1); SODIUM 139 mmol/L (135-144)
[2017-09-17 06:44] LABS: HEMOGLOBIN A1C 6.8 % (0-5.9)
[2017-09-17] MEDS: POLYETHYLENE GLYCOL 17 GM PACKET PO ×2 (08:45→20:51)
[2017-09-17] MEDS: APIXABAN 5 MG TABLET PO ×2 (08:45→20:48)
[2017-09-17] MEDS ORDERED: ENOXAPARIN 30 MG/0.3 ML SYG SC (09:00)
[2017-09-17] MEDS: HYDROXYUREA 500 MG CAP PO ×2 (09:01→20:47)
[2017-09-17] MEDS: SOD CHLORIDE 0.9% 1,000 ML IV ×2 (13:34→23:00)
[2017-09-17] MEDS: ACETAMINOPHEN 325 MG TAB PO (14:25)
[2017-09-17] MEDS: BISACODYL (EC) 5 MG TAB PO (17:48)
[2017-09-17] MEDS: JADENU 180 MG PO (20:44)
[2017-09-17] MEDS: JADENU 360 MG PO (20:45)
[2017-09-18] MEDS: DIPHENHYDRAMINE 50 MG INJ IV ×7 (00:57→21:19)
[2017-09-18] MEDS: ALBUTEROL HFA 8 GM INHALER INH ×6 (01:00→21:00)
[2017-09-18] MEDS: morphine 10 MG INJ IV ×6 (01:00→21:19)
[2017-09-18] MEDS: SOD CHLORIDE 0.9% 1,000 ML IV ×2 (04:54→19:00)
[2017-09-18] MEDS: POLYETHYLENE GLYCOL 17 GM PACKET PO ×2 (09:04→22:50)
[2017-09-18] MEDS: APIXABAN 5 MG TABLET PO ×2 (09:04→22:49)
[2017-09-18] MEDS: BISACODYL (EC) 5 MG TAB PO ×2 (09:05→17:18)
[2017-09-18] MEDS: HYDROXYUREA 500 MG CAP PO ×2 (09:05→22:54)
[2017-09-18 09:30] LABS: ADD MAN DIFF? NO
[2017-09-18 09:39] LABS: WHITE BLOOD COUNT 14.2 10^3/ul (4.8-10.8)
[2017-09-18 09:39] LABS: BASOPHIL # 0.1 10^3/ul (0.0-0.1); BASOPHILS % 0.7 % (0.0-2.0); EOSINOPHILS # 0.5 10^3/ul (0.0-0.5); EOSINOPHILS % 3.5 % (0.0-7.0); HEMATOCRIT 23.2 % (37.0-47.0); HEMOGLOBIN 7.5 g/dl (12.0-16.0); LYMPHOCYTES # 2.8 10^3/ul (0.8-2.9); LYMPHOCYTES % 19.6 % (15.0-51.0); MEAN CORPUSCULAR HEMOGLOBIN 28.7 pg (29.0-33.0); MEAN CORPUSCULAR HGB CONC 32.3 g/dl (32.0-37.0); MEAN CORPUSCULAR VOLUME 88.9 fl (82.0-101.0); MONOCYTE # 1.2 10^3/ul (0.3-0.9); MONOCYTES % 8.5 % (0.0-11.0); NEUTROPHIL # 9.3 10^3/ul (1.6-7.5); NEUTROPHILS % 65.5 % (39.0-77.0); NUCLEATED RED BLOOD CELLS # 0.2 10^3/ul (0.0-0.0); NUCLEATED RED BLOOD CELLS% 1.5 /100WBC (0.0-0.0); PLATELET COUNT 232 10^3/UL (140-415); RED BLOOD COUNT 2.61 10^6/ul (4.20-5.40)
[2017-09-18 10:02] LABS: ANION GAP 10 (8-16); BLOOD UREA NITROGEN 10 mg/dl (7-20); CALCIUM 8.1 mg/dl (8.4-10.2); CARBON DIOXIDE 24 mmol/L (21-31); CHLORIDE 108 mmol/L (97-110); CREATININE 0.75 mg/dl (0.44-1.00); GLUCOSE 102 mg/dl (70-220); POTASSIUM 4.6 mmol/L (3.5-5.1); SODIUM 137 mmol/L (135-144)
[2017-09-18] MEDS ORDERED: DIPHENHYDRAMINE 25 MG CAP PO (12:30)
[2017-09-18 14:41] LABS: IMMEDIATE SPIN CROSSMATCH 1 2
[2017-09-18] MEDS: ACETAMINOPHEN 325 MG TAB PO (14:55)
[2017-09-18] MEDS: SOD CHLORIDE 0.9% 250 ML IV* (14:57)
[2017-09-18] MEDS: JADENU 360 MG PO (21:18)
[2017-09-18] MEDS: JADENU 180 MG PO (21:18)
[2017-09-18] MEDS: hydrOXYzine HCL 25 MG TAB PO (23:43)
[2017-09-19] MEDS: ALBUTEROL HFA 8 GM INHALER INH ×6 (01:00→21:00)
[2017-09-19] MEDS: DIPHENHYDRAMINE 50 MG INJ IV ×6 (01:10→21:18)
[2017-09-19] MEDS: morphine 10 MG INJ IV ×6 (01:11→21:19)
[2017-09-19] MEDS: SOD CHLORIDE 0.9% 1,000 ML IV ×2 (05:21→14:37)
[2017-09-19] MEDS: APIXABAN 5 MG TABLET PO ×2 (09:12→21:27)
[2017-09-19] MEDS: HYDROXYUREA 500 MG CAP PO ×2 (09:12→21:27)
[2017-09-19] MEDS: BISACODYL (EC) 5 MG TAB PO ×2 (09:12→17:18)
[2017-09-19] MEDS: POLYETHYLENE GLYCOL 17 GM PACKET PO ×2 (09:13→21:00)
[2017-09-19 13:42] LABS: ADD UMIC YES; UR ASCORBIC ACID NEGATIVE (NEGATIVE); UR BACTERIA MODERATE /HPF (NONE SEEN); UR BILIRUBIN (Dip) NEGATIVE (NEGATIVE); UR BLOOD (Dip) 3+ mg/dL (NEGATIVE); UR CLARITY SLIGHTLY CLOUDY (CLEAR); UR COLOR YELLOW (YELLOW); UR GLUCOSE (Dip) NEGATIVE (NEGATIVE); UR KETONES (Dip) NEGATIVE (NEGATIVE); UR LEUKOCYTE ESTERASE (Dip) TRACE Leu/ul (NEGATIVE); UR NITRITE (Dip) NEGATIVE (NEGATIVE); UR RBC > 182 /HPF (0-5); UR SPECIFIC GRAVITY (Dip) 1.008 (1.003-1.030); UR SQUAMOUS EPITHELIAL CELL FEW /HPF (FEW); UR TOTAL PROTEIN (Dip) NEGATIVE (NEGATIVE); UR UROBILINOGEN (Dip) NEGATIVE (NEGATIVE); UR WBC 47 /HPF (0-5)
[2017-09-19] MEDS: JADENU 180 MG PO (21:28)
[2017-09-19] MEDS: JADENU 360 MG PO (21:30)
[2017-09-20] MEDS: ARTIFICIAL TEARS 15 ML OPH BOTH EYES (00:28)
[2017-09-20] MEDS: ALBUTEROL HFA 8 GM INHALER INH ×6 (01:00→21:00)
[2017-09-20] MEDS: DIPHENHYDRAMINE 50 MG INJ IV ×5 (01:20→20:28)
[2017-09-20] MEDS: morphine 10 MG INJ IV ×5 (01:21→20:30)
[2017-09-20] MEDS: ZOLPIDEM 5 MG TAB PO (02:38)
[2017-09-20] MEDS: SOD CHLORIDE 0.9% 1,000 ML IV ×4 (04:40→20:42)
[2017-09-20 05:31] LABS: ADD MAN DIFF? NO
[2017-09-20 05:38] LABS: WHITE BLOOD COUNT 12.1 10^3/ul (4.8-10.8)
[2017-09-20 05:38] LABS: ABNORMAL IP MESSAGE 1; BASOPHIL # 0.1 10^3/ul (0.0-0.1); BASOPHILS % 0.9 % (0.0-2.0); EOSINOPHILS # 0.7 10^3/ul (0.0-0.5); EOSINOPHILS % 5.4 % (0.0-7.0); HEMATOCRIT 25.8 % (37.0-47.0); HEMOGLOBIN 8.5 g/dl (12.0-16.0); LYMPHOCYTES # 5.4 10^3/ul (0.8-2.9); LYMPHOCYTES % 44.6 % (15.0-51.0); MEAN CORPUSCULAR HEMOGLOBIN 29.5 pg (29.0-33.0); MEAN CORPUSCULAR HGB CONC 32.9 g/dl (32.0-37.0); MEAN CORPUSCULAR VOLUME 89.6 fl (82.0-101.0); MEAN PLATELET VOLUME 10.8 fl (7.4-10.4); MONOCYTE # 1.7 10^3/ul (0.3-0.9); MONOCYTES % 13.7 % (0.0-11.0); NEUTROPHIL # 4.2 10^3/ul (1.6-7.5); NEUTROPHILS % 34.7 % (39.0-77.0); NUCLEATED RED BLOOD CELLS # 0.2 10^3/ul (0.0-0.0); NUCLEATED RED BLOOD CELLS% 1.3 /100WBC (0.0-0.0); PLATELET COUNT 270 10^3/UL (140-415); RED BLOOD COUNT 2.88 10^6/ul (4.20-5.40); RED CELL DISTRIBUTION WIDTH 18.8 % (11.5-14.5)
[2017-09-20 05:49] LABS: POSITIVE DIFF @See below
[2017-09-20 06:26] LABS: ANION GAP 13 (8-16); BLOOD UREA NITROGEN 13 mg/dl (7-20); CALCIUM 8.5 mg/dl (8.4-10.2); CARBON DIOXIDE 25 mmol/L (21-31); CHLORIDE 108 mmol/L (97-110); CREATININE 0.82 mg/dl (0.44-1.00); GLUCOSE 103 mg/dl (70-220); POTASSIUM 4.4 mmol/L (3.5-5.1); SODIUM 142 mmol/L (135-144)
[2017-09-20] MEDS: BISACODYL (EC) 5 MG TAB PO ×2 (12:34→17:20)
[2017-09-20] MEDS: APIXABAN 5 MG TABLET PO ×3 (12:34→20:23)
[2017-09-20] MEDS: POLYETHYLENE GLYCOL 17 GM PACKET PO ×2 (12:35→20:43)
[2017-09-20] MEDS: HYDROXYUREA 500 MG CAP PO ×3 (12:35→20:27)
[2017-09-20] MEDS: MEROPENEM 1 GM/50ML(PMX) 50 ML IVPB ×2 (16:30→23:41)
[2017-09-20] MEDS: JADENU 360 MG PO (20:24)
[2017-09-20] MEDS: JADENU 180 MG PO (20:25)
[2017-09-20] MEDS: ONDANSETRON 4 MG INJ IV (20:28)
[2017-09-21] MEDS: morphine 10 MG INJ IV ×6 (00:28→21:32)
[2017-09-21] MEDS: DIPHENHYDRAMINE 50 MG INJ IV ×6 (00:29→21:32)
[2017-09-21] MEDS: ALBUTEROL HFA 8 GM INHALER INH ×6 (00:41→21:00)
[2017-09-21] MEDS: ONDANSETRON 4 MG INJ IV (02:28)
[2017-09-21] MEDS: SOD CHLORIDE 0.9% 1,000 ML IV ×2 (04:50→17:31)
[2017-09-21] MEDS: MEROPENEM 1 GM/50ML(PMX) 50 ML IVPB ×3 (05:18→21:33)
[2017-09-21] MEDS: POLYETHYLENE GLYCOL 17 GM PACKET PO ×2 (09:00→21:00)
[2017-09-21] MEDS: APIXABAN 5 MG TABLET PO ×2 (09:28→21:32)
[2017-09-21] MEDS: HYDROXYUREA 500 MG CAP PO ×2 (09:29→21:38)
[2017-09-21] MEDS: BISACODYL (EC) 5 MG TAB PO ×2 (09:30→17:30)
[2017-09-21] MEDS: JADENU 360 MG PO ×2 (21:00→23:45)
[2017-09-21] MEDS: JADENU 180 MG PO ×2 (21:00→23:45)
[2017-09-21] MEDS ORDERED: CLOTRIMAZOLE 1% 45 GM VAG CR VAG (21:00)
[2017-09-21] MEDS: ACETAMINOPHEN 325 MG TAB PO (21:45)
[2017-09-21] MEDS: CLOTRIMAZOLE 1% 45 GM VAG CR VAG (23:44)
[2017-09-22] MEDS: ALBUTEROL HFA 8 GM INHALER INH ×6 (01:00→21:03)
[2017-09-22] MEDS: DIPHENHYDRAMINE 50 MG INJ IV ×6 (01:42→21:44)
[2017-09-22] MEDS: morphine 10 MG INJ IV ×6 (01:43→21:45)
[2017-09-22] MEDS: SOD CHLORIDE 0.9% 1,000 ML IV ×3 (03:00→18:31)
[2017-09-22] MEDS: MEROPENEM 1 GM/50ML(PMX) 50 ML IVPB ×3 (05:45→21:38)
[2017-09-22] MEDS: POLYETHYLENE GLYCOL 17 GM PACKET PO ×2 (08:52→21:03)
[2017-09-22] MEDS: BISACODYL (EC) 5 MG TAB PO ×2 (08:59→18:05)
[2017-09-22] MEDS: APIXABAN 5 MG TABLET PO ×2 (08:59→21:03)
[2017-09-22] MEDS: HYDROXYUREA 500 MG CAP PO ×2 (09:02→21:04)
[2017-09-22] MEDS: ONDANSETRON 4 MG INJ IV (18:30)
[2017-09-22] MEDS: CLOTRIMAZOLE 1% 45 GM VAG CR VAG (21:05)
[2017-09-22] MEDS: JADENU 360 MG PO (21:16)
[2017-09-22] MEDS: JADENU 180 MG PO (21:16)
[2017-09-23] MEDS: ALBUTEROL HFA 8 GM INHALER INH ×6 (01:00→21:27)
[2017-09-23] MEDS: DIPHENHYDRAMINE 50 MG INJ IV ×6 (01:48→22:03)
[2017-09-23] MEDS: morphine 10 MG INJ IV ×6 (01:48→22:03)
[2017-09-23] MEDS: MEROPENEM 1 GM/50ML(PMX) 50 ML IVPB ×3 (05:56→21:34)
[2017-09-23 06:00] LABS: ADD MAN DIFF? NO
[2017-09-23 06:04] LABS: BASOPHIL # 0.1 10^3/ul (0.0-0.1); BASOPHILS % 1.1 % (0.0-2.0); EOSINOPHILS # 0.6 10^3/ul (0.0-0.5); EOSINOPHILS % 6.2 % (0.0-7.0); HEMATOCRIT 25.8 % (37.0-47.0); HEMOGLOBIN 8.3 g/dl (12.0-16.0); LYMPHOCYTES % 40.2 % (15.0-51.0); MEAN CORPUSCULAR HEMOGLOBIN 28.9 pg (29.0-33.0); MEAN CORPUSCULAR HGB CONC 32.2 g/dl (32.0-37.0); MEAN CORPUSCULAR VOLUME 89.9 fl (82.0-101.0); MEAN PLATELET VOLUME 10.9 fl (7.4-10.4); MONOCYTE # 1.1 10^3/ul (0.3-0.9); NEUTROPHIL # 4.1 10^3/ul (1.6-7.5); NEUTROPHILS % 40.8 % (39.0-77.0); NUCLEATED RED BLOOD CELLS # 0.1 10^3/ul (0.0-0.0); NUCLEATED RED BLOOD CELLS% 0.9 /100WBC (0.0-0.0); PLATELET COUNT 285 10^3/UL (140-415); RED BLOOD COUNT 2.87 10^6/ul (4.20-5.40)
[2017-09-23 06:31] LABS: ANION GAP 11 (8-16); BLOOD UREA NITROGEN 7 mg/dl (7-20); CALCIUM 8.5 mg/dl (8.4-10.2); CARBON DIOXIDE 27 mmol/L (21-31); CHLORIDE 105 mmol/L (97-110); CREATININE 0.68 mg/dl (0.44-1.00); GLUCOSE 119 mg/dl (70-220); POTASSIUM 4.3 mmol/L (3.5-5.1); SODIUM 139 mmol/L (135-144)
[2017-09-23] MEDS: SOD CHLORIDE 0.9% 1,000 ML IV ×2 (08:59→09:58)
[2017-09-23] MEDS: BISACODYL (EC) 5 MG TAB PO ×2 (09:02→17:25)
[2017-09-23] MEDS: POLYETHYLENE GLYCOL 17 GM PACKET PO ×2 (09:02→21:27)
[2017-09-23] MEDS: APIXABAN 5 MG TABLET PO ×2 (09:02→21:28)
[2017-09-23] MEDS: HYDROXYUREA 500 MG CAP PO ×2 (09:03→21:28)
[2017-09-23] MEDS: CLOTRIMAZOLE 1% 45 GM VAG CR VAG (21:27)
[2017-09-23] MEDS: JADENU 360 MG PO (21:29)
[2017-09-23] MEDS: JADENU 180 MG PO (21:29)
[2017-09-24] MEDS: ALBUTEROL HFA 8 GM INHALER INH ×6 (01:00→21:00)
[2017-09-24] MEDS: morphine 10 MG INJ IV ×6 (02:11→22:05)
[2017-09-24] MEDS: DIPHENHYDRAMINE 50 MG INJ IV ×6 (02:11→22:05)
[2017-09-24] MEDS: SOD CHLORIDE 0.9% 1,000 ML IV ×2 (02:20→14:56)
[2017-09-24] MEDS: MEROPENEM 1 GM/50ML(PMX) 50 ML IVPB ×3 (05:40→22:08)
[2017-09-24] MEDS: BISACODYL (EC) 5 MG TAB PO ×2 (09:56→18:02)
[2017-09-24] MEDS: POLYETHYLENE GLYCOL 17 GM PACKET PO ×2 (09:56→22:09)
[2017-09-24] MEDS: HYDROXYUREA 500 MG CAP PO ×2 (09:57→22:13)
[2017-09-24] MEDS: APIXABAN 5 MG TABLET PO ×2 (09:58→22:09)
[2017-09-24] MEDS: JADENU 180 MG PO (22:09)
[2017-09-24] MEDS: JADENU 360 MG PO (22:09)
[2017-09-24] MEDS: CLOTRIMAZOLE 1% 45 GM VAG CR VAG (22:14)
[2017-09-25] MEDS: ALBUTEROL HFA 8 GM INHALER INH ×6 (01:00→21:00)
[2017-09-25] MEDS: SOD CHLORIDE 0.9% 1,000 ML IV ×3 (01:00→17:31)
[2017-09-25] MEDS: DIPHENHYDRAMINE 50 MG INJ IV ×6 (02:06→22:12)
[2017-09-25] MEDS: morphine 10 MG INJ IV ×6 (02:06→22:12)
[2017-09-25] MEDS: MEROPENEM 1 GM/50ML(PMX) 50 ML IVPB ×3 (05:56→22:20)
[2017-09-25] MEDS: POLYETHYLENE GLYCOL 17 GM PACKET PO ×2 (09:00→21:00)
[2017-09-25] MEDS: BISACODYL (EC) 5 MG TAB PO ×2 (10:10→17:34)
[2017-09-25] MEDS: APIXABAN 5 MG TABLET PO ×2 (10:10→22:18)
[2017-09-25] MEDS: HYDROXYUREA 500 MG CAP PO ×2 (10:10→22:19)
[2017-09-25] MEDS: CLOTRIMAZOLE 1% 45 GM VAG CR VAG (22:20)
[2017-09-25] MEDS: JADENU 180 MG PO (22:21)
[2017-09-25] MEDS: JADENU 360 MG PO (22:22)
[2017-09-26] MEDS: ALBUTEROL HFA 8 GM INHALER INH ×6 (01:00→21:00)
[2017-09-26] MEDS: morphine 10 MG INJ IV ×6 (02:12→22:31)
[2017-09-26] MEDS: DIPHENHYDRAMINE 50 MG INJ IV ×6 (02:13→22:31)
[2017-09-26] MEDS: MEROPENEM 1 GM/50ML(PMX) 50 ML IVPB ×3 (06:18→22:40)
[2017-09-26] MEDS: SOD CHLORIDE 0.9% 1,000 ML IV ×2 (06:19→18:29)
[2017-09-26] MEDS: BISACODYL (EC) 5 MG TAB PO ×2 (08:00→18:28)
[2017-09-26] MEDS: HYDROXYUREA 500 MG CAP PO ×2 (09:00→22:44)
[2017-09-26] MEDS: POLYETHYLENE GLYCOL 17 GM PACKET PO ×2 (09:00→21:00)
[2017-09-26] MEDS: APIXABAN 5 MG TABLET PO ×2 (09:00→22:40)
[2017-09-26 11:17] LABS: ADD MAN DIFF? NO
[2017-09-26 11:20] LABS: BASOPHIL # 0.1 10^3/ul (0.0-0.1); EOSINOPHILS # 0.6 10^3/ul (0.0-0.5); EOSINOPHILS % 5.8 % (0.0-7.0); HEMATOCRIT 29.8 % (37.0-47.0); HEMOGLOBIN 9.7 g/dl (12.0-16.0); LYMPHOCYTES # 4.1 10^3/ul (0.8-2.9); LYMPHOCYTES % 41.5 % (15.0-51.0); MEAN CORPUSCULAR HGB CONC 32.6 g/dl (32.0-37.0); MEAN CORPUSCULAR VOLUME 89.2 fl (82.0-101.0); MEAN PLATELET VOLUME 9.9 fl (7.4-10.4); MONOCYTE # 1.4 10^3/ul (0.3-0.9); MONOCYTES % 14.2 % (0.0-11.0); NEUTROPHIL # 3.6 10^3/ul (1.6-7.5); NEUTROPHILS % 36.7 % (39.0-77.0); NUCLEATED RED BLOOD CELLS # 0.1 10^3/ul (0.0-0.0); NUCLEATED RED BLOOD CELLS% 0.6 /100WBC (0.0-0.0); PLATELET COUNT 306 10^3/UL (140-415); RED BLOOD COUNT 3.34 10^6/ul (4.20-5.40); RED CELL DISTRIBUTION WIDTH 18.3 % (11.5-14.5)
[2017-09-26 11:20] LABS: WHITE BLOOD COUNT 9.8 10^3/ul (4.8-10.8)
[2017-09-26 11:44] LABS: ANION GAP 12 (8-16); BLOOD UREA NITROGEN 15 mg/dl (7-20); CALCIUM 9.1 mg/dl (8.4-10.2); CARBON DIOXIDE 25 mmol/L (21-31); CHLORIDE 105 mmol/L (97-110); CREATININE 0.62 mg/dl (0.44-1.00); GLUCOSE 102 mg/dl (70-220); POTASSIUM 5.4 mmol/L (3.5-5.1); SODIUM 137 mmol/L (135-144)
[2017-09-26] MEDS: NA POLYST SULFON 15 GM/60 ML BTL PO (12:30)
[2017-09-26] MEDS: ONDANSETRON 4 MG INJ IV (18:29)
[2017-09-26] MEDS: HYDROCORTISONE 1% 28 GM CR TOP (22:40)
[2017-09-26] MEDS: CLOTRIMAZOLE 1% 45 GM VAG CR VAG (22:41)
[2017-09-26] MEDS: JADENU 360 MG PO (22:42)
[2017-09-26] MEDS: JADENU 180 MG PO (22:43)
[2017-09-27] MEDS: ALBUTEROL HFA 8 GM INHALER INH ×6 (00:46→21:45)
[2017-09-27] MEDS: DIPHENHYDRAMINE 50 MG INJ IV ×5 (02:33→18:54)
[2017-09-27] MEDS: morphine 10 MG INJ IV ×6 (02:38→23:08)
[2017-09-27] MEDS: SOD CHLORIDE 0.9% 1,000 ML IV ×3 (02:40→23:37)
[2017-09-27] MEDS: MEROPENEM 1 GM/50ML(PMX) 50 ML IVPB ×3 (06:40→21:37)
[2017-09-27] MEDS: PANTOPRAZOLE 40 MG INJ IV (06:40)
[2017-09-27] MEDS: POLYETHYLENE GLYCOL 17 GM PACKET PO ×2 (09:00→21:40)
[2017-09-27] MEDS: HYDROCORTISONE 1% 28 GM CR TOP ×2 (11:12→21:43)
[2017-09-27 12:37] LABS: ADD MAN DIFF? NO
[2017-09-27 12:40] LABS: WHITE BLOOD COUNT 8.6 10^3/ul (4.8-10.8)
[2017-09-27 12:40] LABS: HEMATOCRIT 23.3 % (37.0-47.0); HEMOGLOBIN 7.6 g/dl (12.0-16.0); MEAN CORPUSCULAR HEMOGLOBIN 29.1 pg (29.0-33.0); MEAN CORPUSCULAR HGB CONC 32.6 g/dl (32.0-37.0); MEAN CORPUSCULAR VOLUME 89.3 fl (82.0-101.0); MEAN PLATELET VOLUME 10.5 fl (7.4-10.4); NUCLEATED RED BLOOD CELLS% 0.5 /100WBC (0.0-0.0); PLATELET COUNT 266 10^3/UL (140-415); RED BLOOD COUNT 2.61 10^6/ul (4.20-5.40); RED CELL DISTRIBUTION WIDTH 18.4 % (11.5-14.5)
[2017-09-27] MEDS: BISACODYL (EC) 5 MG TAB PO ×2 (12:52→18:05)
[2017-09-27] MEDS: APIXABAN 5 MG TABLET PO ×2 (12:52→21:40)
[2017-09-27] MEDS: HYDROXYUREA 500 MG CAP PO ×2 (12:53→21:44)
[2017-09-27 13:06] LABS: BASOPHIL # 0.1 10^3/ul (0.0-0.1); BASOPHILS % 0.7 % (0.0-2.0); EOSINOPHILS # 0.5 10^3/ul (0.0-0.5); EOSINOPHILS % 5.7 % (0.0-7.0); LYMPHOCYTES # 3.3 10^3/ul (0.8-2.9); LYMPHOCYTES % 37.4 % (15.0-51.0); MONOCYTE # 1.1 10^3/ul (0.3-0.9); MONOCYTES % 12.7 % (0.0-11.0); NEUTROPHIL # 3.8 10^3/ul (1.6-7.5); NEUTROPHILS % 42.9 % (39.0-77.0); NUCLEATED RED BLOOD CELLS # 0.1 10^3/ul (0.0-0.0)
[2017-09-27 13:32] LABS: ANION GAP 8 (8-16); BLOOD UREA NITROGEN 12 mg/dl (7-20); CALCIUM 7.9 mg/dl (8.4-10.2); CARBON DIOXIDE 24 mmol/L (21-31); CHLORIDE 111 mmol/L (97-110); GLUCOSE 102 mg/dl (70-220); POTASSIUM 4.1 mmol/L (3.5-5.1); SODIUM 139 mmol/L (135-144)
[2017-09-27 13:34] LABS: ANISOCYTOSIS 1+ (0-0); BASOPHIL #M 0.3 10^3/ul (0.0-0.0); BASOPHILS % (M) 4 % (0-2); EOSINOPHILS % (M) 7 % (0-7); ERYTHROBLAST% (NRBC) (M) 1 % (0-0); GIANT THROMBO% (M) 3 % (0-0); LYMPHOCYTES #M 4.3 10^3/ul (0.8-2.9); LYMPHOCYTES % (M) 51 % (15-51); MONOCYTE #M 0.6 10^3/ul (0.3-0.9); MONOCYTES % (M) 7 % (0-11); PLATELET ESTIMATE NORMAL; POIKILOCYTOSIS 1+ (0-0); SEGMENTED NEUTROPHILS (M) % 31 % (39-77); SMUDGE%M 4 % (0-0); TARGET CELLS 1+ (0-0)
[2017-09-27 15:27] LABS: WHITE BLOOD COUNT 9.8 10^3/ul (4.8-10.8)
[2017-09-27 15:27] LABS: ADD MAN DIFF? NO; BASOPHIL # 0.1 10^3/ul (0.0-0.1); EOSINOPHILS # 0.5 10^3/ul (0.0-0.5); EOSINOPHILS % 5.4 % (0.0-7.0); HEMATOCRIT 25.5 % (37.0-47.0); HEMOGLOBIN 8.4 g/dl (12.0-16.0); LYMPHOCYTES # 4.1 10^3/ul (0.8-2.9); MEAN CORPUSCULAR HGB CONC 32.9 g/dl (32.0-37.0); MEAN CORPUSCULAR VOLUME 87.9 fl (82.0-101.0); MEAN PLATELET VOLUME 10.3 fl (7.4-10.4); MONOCYTE # 1.3 10^3/ul (0.3-0.9); MONOCYTES % 13.4 % (0.0-11.0); NEUTROPHIL # 3.7 10^3/ul (1.6-7.5); NEUTROPHILS % 37.7 % (39.0-77.0); NUCLEATED RED BLOOD CELLS # 0.1 10^3/ul (0.0-0.0); NUCLEATED RED BLOOD CELLS% 0.5 /100WBC (0.0-0.0); PLATELET COUNT 283 10^3/UL (140-415); RED CELL DISTRIBUTION WIDTH 18.3 % (11.5-14.5)
[2017-09-27] MEDS: JADENU 180 MG PO (21:41)
[2017-09-27] MEDS: JADENU 360 MG PO (21:42)
[2017-09-27] MEDS: CLOTRIMAZOLE 1% 45 GM VAG CR VAG (21:43)
[2017-09-27] MEDS: DIPHENHYDRAMINE 25 MG CAP PO (23:08)
[2017-09-28] MEDS: ALBUTEROL HFA 8 GM INHALER INH ×6 (01:51→21:56)
[2017-09-28] MEDS: DIPHENHYDRAMINE 50 MG INJ IV ×5 (03:10→19:47)
[2017-09-28] MEDS: morphine 10 MG INJ IV ×6 (03:16→23:47)
[2017-09-28 05:32] LABS: ADD MAN DIFF? NO
[2017-09-28 05:33] LABS: ABNORMAL IP MESSAGE 1; BASOPHIL # 0.1 10^3/ul (0.0-0.1); BASOPHILS % 0.9 % (0.0-2.0); EOSINOPHILS # 0.5 10^3/ul (0.0-0.5); EOSINOPHILS % 5.6 % (0.0-7.0); HEMATOCRIT 19.7 % (37.0-47.0); LYMPHOCYTES # 3.7 10^3/ul (0.8-2.9); LYMPHOCYTES % 43.5 % (15.0-51.0); MEAN CORPUSCULAR HEMOGLOBIN 28.8 pg (29.0-33.0); MEAN PLATELET VOLUME 11.1 fl (7.4-10.4); MONOCYTE # 1.1 10^3/ul (0.3-0.9); MONOCYTES % 12.8 % (0.0-11.0); NEUTROPHIL # 3.1 10^3/ul (1.6-7.5); NEUTROPHILS % 36.7 % (39.0-77.0); NUCLEATED RED BLOOD CELLS% 0.4 /100WBC (0.0-0.0); PLATELET COUNT 221 10^3/UL (140-415); RED BLOOD COUNT 2.19 10^6/ul (4.20-5.40); RED CELL DISTRIBUTION WIDTH 18.6 % (11.5-14.5)
[2017-09-28 05:33] LABS: WHITE BLOOD COUNT 8.4 10^3/ul (4.8-10.8)
[2017-09-28 05:41] LABS: POSITIVE DIFF @See below
[2017-09-28 05:43] LABS: HEMOGLOBIN 6.3 g/dl (12.0-16.0)
[2017-09-28 06:16] LABS: ADD MAN DIFF? NO
[2017-09-28 06:19] LABS: ABNORMAL IP MESSAGE 1; BASOPHIL # 0.1 10^3/ul (0.0-0.1); BASOPHILS % 1.1 % (0.0-2.0); EOSINOPHILS # 0.6 10^3/ul (0.0-0.5); HEMATOCRIT 24.9 % (37.0-47.0); HEMOGLOBIN 8.1 g/dl (12.0-16.0); LYMPHOCYTES % 44.3 % (15.0-51.0); MEAN CORPUSCULAR HEMOGLOBIN 28.7 pg (29.0-33.0); MEAN CORPUSCULAR HGB CONC 32.5 g/dl (32.0-37.0); MEAN CORPUSCULAR VOLUME 88.3 fl (82.0-101.0); MEAN PLATELET VOLUME 10.6 fl (7.4-10.4); MONOCYTE # 1.6 10^3/ul (0.3-0.9); NEUTROPHILS % 35.2 % (39.0-77.0); NUCLEATED RED BLOOD CELLS # 0.1 10^3/ul (0.0-0.0); NUCLEATED RED BLOOD CELLS% 0.4 /100WBC (0.0-0.0); PLATELET COUNT 278 10^3/UL (140-415); RED BLOOD COUNT 2.82 10^6/ul (4.20-5.40); RED CELL DISTRIBUTION WIDTH 18.6 % (11.5-14.5)
[2017-09-28 06:19] LABS: WHITE BLOOD COUNT 11.3 10^3/ul (4.8-10.8)
[2017-09-28 06:20] LABS: ALANINE AMINOTRANSFERASE 105 IU/L (13-69); ALBUMIN 2.4 g/dl (3.3-4.9); ALBUMIN/GLOBULIN RATIO 0.77; ALKALINE PHOSPHATASE 103 IU/L (42-121); ANION GAP 5 (8-16); ASPARTATE AMINO TRANSFERASE 143 IU/L (15-46); BILIRUBIN,INDIRECT 1.1 mg/dl (0-1.1); BILIRUBIN,TOTAL 1.1 mg/dl (0.2-1.3); BLOOD UREA NITROGEN 10 mg/dl (7-20); CALCIUM 6.6 mg/dl (8.4-10.2); CARBON DIOXIDE 21 mmol/L (21-31); CHLORIDE 117 mmol/L (97-110); CREATININE 0.47 mg/dl (0.44-1.00); GLUCOSE 89 mg/dl (70-220); POTASSIUM 3.4 mmol/L (3.5-5.1); SODIUM 140 mmol/L (135-144); TOTAL PROTEIN 5.5 g/dl (6.1-8.1)
[2017-09-28 06:23] LABS: POSITIVE DIFF @See below
[2017-09-28 06:50] LABS: ALANINE AMINOTRANSFERASE 141 IU/L (13-69); ALBUMIN 3.7 g/dl (3.3-4.9); ALBUMIN/GLOBULIN RATIO 0.97; ALKALINE PHOSPHATASE 133 IU/L (42-121); ANION GAP 11 (8-16); ASPARTATE AMINO TRANSFERASE 187 IU/L (15-46); BILIRUBIN,INDIRECT 1.4 mg/dl (0-1.1); BILIRUBIN,TOTAL 1.4 mg/dl (0.2-1.3); BLOOD UREA NITROGEN 13 mg/dl (7-20); CALCIUM 8.9 mg/dl (8.4-10.2); CARBON DIOXIDE 26 mmol/L (21-31); CHLORIDE 106 mmol/L (97-110); CREATININE 0.63 mg/dl (0.44-1.00); GLUCOSE 120 mg/dl (70-220); POTASSIUM 4.8 mmol/L (3.5-5.1); SODIUM 138 mmol/L (135-144); TOTAL PROTEIN 7.5 g/dl (6.1-8.1)
[2017-09-28] MEDS: PANTOPRAZOLE 40 MG INJ IV (07:03)
[2017-09-28] MEDS: BISACODYL (EC) 5 MG TAB PO ×3 (08:00→17:17)
[2017-09-28] MEDS: POLYETHYLENE GLYCOL 17 GM PACKET PO ×2 (09:00→21:00)
[2017-09-28] MEDS: HYDROXYUREA 500 MG CAP PO ×3 (09:00→21:55)
[2017-09-28] MEDS: HYDROCORTISONE 1% 28 GM CR TOP ×3 (09:00→21:53)
[2017-09-28] MEDS: APIXABAN 5 MG TABLET PO ×3 (09:00→21:53)
[2017-09-28] MEDS: SOD CHLORIDE 0.9% 1,000 ML IV ×2 (09:00→14:14)
[2017-09-28] MEDS: ONDANSETRON 4 MG INJ IV (15:49)
[2017-09-28] MEDS: JADENU 360 MG PO (21:54)
[2017-09-28] MEDS: JADENU 180 MG PO (21:54)
[2017-09-29] MEDS: ONDANSETRON 4 MG INJ IV ×2 (00:24→09:50)
[2017-09-29] MEDS: ALBUTEROL HFA 8 GM INHALER INH ×6 (01:00→20:47)
[2017-09-29] MEDS: DIPHENHYDRAMINE 50 MG INJ IV ×5 (03:47→20:50)
[2017-09-29] MEDS: morphine 10 MG INJ IV ×5 (03:49→20:50)
[2017-09-29] MEDS: SOD CHLORIDE 0.9% 1,000 ML IV ×3 (05:06→17:13)
[2017-09-29] MEDS: PANTOPRAZOLE 40 MG INJ IV (05:06)
[2017-09-29 06:14] LABS: ALANINE AMINOTRANSFERASE 153 IU/L (13-69); ALBUMIN 3.8 g/dl (3.3-4.9); ALKALINE PHOSPHATASE 140 IU/L (42-121); ANION GAP 9 (8-16); ASPARTATE AMINO TRANSFERASE 186 IU/L (15-46); BILIRUBIN,INDIRECT 1.4 mg/dl (0-1.1); BILIRUBIN,TOTAL 1.4 mg/dl (0.2-1.3); BLOOD UREA NITROGEN 12 mg/dl (7-20); CALCIUM 8.7 mg/dl (8.4-10.2); CARBON DIOXIDE 29 mmol/L (21-31); CHLORIDE 105 mmol/L (97-110); CREATININE 0.55 mg/dl (0.44-1.00); GLUCOSE 87 mg/dl (70-220); POTASSIUM 4.3 mmol/L (3.5-5.1); SODIUM 139 mmol/L (135-144); TOTAL PROTEIN 7.6 g/dl (6.1-8.1)
[2017-09-29] MEDS: BISACODYL (EC) 5 MG TAB PO ×2 (08:00→17:52)
[2017-09-29] MEDS: POLYETHYLENE GLYCOL 17 GM PACKET PO ×2 (08:38→21:00)
[2017-09-29] MEDS: HYDROCORTISONE 1% 28 GM CR TOP ×2 (08:39→20:47)
[2017-09-29] MEDS: APIXABAN 5 MG TABLET PO ×2 (08:39→20:48)
[2017-09-29] MEDS: HYDROXYUREA 500 MG CAP PO ×2 (08:40→20:49)
[2017-09-29 11:49] LABS: ADD MAN DIFF? NO
[2017-09-29 11:51] LABS: ABNORMAL IP MESSAGE 1; BASOPHIL # 0.1 10^3/ul (0.0-0.1); BASOPHILS % 0.8 % (0.0-2.0); EOSINOPHILS # 0.6 10^3/ul (0.0-0.5); EOSINOPHILS % 5.1 % (0.0-7.0); HEMATOCRIT 24.8 % (37.0-47.0); LYMPHOCYTES # 5.2 10^3/ul (0.8-2.9); LYMPHOCYTES % 43.9 % (15.0-51.0); MEAN CORPUSCULAR HEMOGLOBIN 29.1 pg (29.0-33.0); MEAN CORPUSCULAR HGB CONC 32.3 g/dl (32.0-37.0); MEAN CORPUSCULAR VOLUME 90.2 fl (82.0-101.0); MEAN PLATELET VOLUME 11.2 fl (7.4-10.4); MONOCYTE # 1.7 10^3/ul (0.3-0.9); MONOCYTES % 14.4 % (0.0-11.0); NEUTROPHIL # 4.2 10^3/ul (1.6-7.5); NEUTROPHILS % 35.4 % (39.0-77.0); NUCLEATED RED BLOOD CELLS # 0.1 10^3/ul (0.0-0.0); NUCLEATED RED BLOOD CELLS% 0.4 /100WBC (0.0-0.0); PLATELET COUNT 275 10^3/UL (140-415); RED BLOOD COUNT 2.75 10^6/ul (4.20-5.40); RED CELL DISTRIBUTION WIDTH 18.4 % (11.5-14.5)
[2017-09-29 11:51] LABS: WHITE BLOOD COUNT 11.9 10^3/ul (4.8-10.8)
[2017-09-29 11:54] LABS: POSITIVE DIFF @See below
[2017-09-29 12:29] LABS: ANISOCYTOSIS 1+ (0-0); BASOPHIL #M 0.1 10^3/ul (0.0-0.0); BASOPHILS % (M) 1 % (0-2); BURR CELLS 1+ (0-0); EOSINOPHILS % (M) 2 % (0-7); GIANT THROMBO% (M) 1 % (0-0); HYPOCHROMASIA 2+ (0-0); LYMPHOCYTES #M 5.2 10^3/ul (0.8-2.9); LYMPHOCYTES % (M) 44 % (15-51); MONOCYTE #M 1.3 10^3/ul (0.3-0.9); MONOCYTES % (M) 11 % (0-11); PLATELET ESTIMATE NORMAL; POLYCHROMASIA 2+ (0-0); SEGMENTED NEUTROPHILS (M) % 42 % (39-77); SMUDGE%M 4 % (0-0); TARGET CELLS 1+ (0-0)
[2017-09-29] MEDS: JADENU 360 MG PO (20:49)
[2017-09-29] MEDS: JADENU 180 MG PO (20:50)
[2017-09-30] MEDS: ALBUTEROL HFA 8 GM INHALER INH ×6 (00:45→21:00)
[2017-09-30] MEDS: morphine 10 MG INJ IV ×6 (00:46→21:52)
[2017-09-30] MEDS: DIPHENHYDRAMINE 50 MG INJ IV ×6 (00:46→21:52)
[2017-09-30 03:55] LABS: ADD UMIC YES; UR ASCORBIC ACID NEGATIVE (NEGATIVE); UR BILIRUBIN (Dip) NEGATIVE (NEGATIVE); UR BLOOD (Dip) 2+ mg/dL (NEGATIVE); UR CLARITY CLEAR (CLEAR); UR COLOR YELLOW (YELLOW); UR GLUCOSE (Dip) NEGATIVE (NEGATIVE); UR KETONES (Dip) NEGATIVE (NEGATIVE); UR LEUKOCYTE ESTERASE (Dip) NEGATIVE Leu/ul (NEGATIVE); UR NITRITE (Dip) NEGATIVE (NEGATIVE); UR RBC 9 /HPF (0-5); UR SPECIFIC GRAVITY (Dip) 1.009 (1.003-1.030); UR SQUAMOUS EPITHELIAL CELL FEW /HPF (FEW); UR TOTAL PROTEIN (Dip) NEGATIVE (NEGATIVE); UR UROBILINOGEN (Dip) NEGATIVE (NEGATIVE); UR WBC 3 /HPF (0-5)
[2017-09-30] MEDS: PANTOPRAZOLE 40 MG INJ IV (05:01)
[2017-09-30 06:42] LABS: ADD MAN DIFF? NO
[2017-09-30 06:46] LABS: ABNORMAL IP MESSAGE 1; BASOPHIL # 0.2 10^3/ul (0.0-0.1); BASOPHILS % 1.2 % (0.0-2.0); EOSINOPHILS # 0.6 10^3/ul (0.0-0.5); EOSINOPHILS % 4.9 % (0.0-7.0); HEMATOCRIT 24.3 % (37.0-47.0); HEMOGLOBIN 7.9 g/dl (12.0-16.0); LYMPHOCYTES # 5.3 10^3/ul (0.8-2.9); LYMPHOCYTES % 40.5 % (15.0-51.0); MEAN CORPUSCULAR HEMOGLOBIN 28.4 pg (29.0-33.0); MEAN CORPUSCULAR HGB CONC 32.5 g/dl (32.0-37.0); MEAN CORPUSCULAR VOLUME 87.4 fl (82.0-101.0); MEAN PLATELET VOLUME 11.4 fl (7.4-10.4); MONOCYTE # 1.6 10^3/ul (0.3-0.9); NEUTROPHIL # 5.4 10^3/ul (1.6-7.5); NEUTROPHILS % 41.1 % (39.0-77.0); NUCLEATED RED BLOOD CELLS% 0.3 /100WBC (0.0-0.0); PLATELET COUNT 287 10^3/UL (140-415); RED BLOOD COUNT 2.78 10^6/ul (4.20-5.40); RED CELL DISTRIBUTION WIDTH 18.3 % (11.5-14.5)
[2017-09-30 06:46] LABS: WHITE BLOOD COUNT 13.2 10^3/ul (4.8-10.8)
[2017-09-30 07:05] LABS: POSITIVE DIFF @See below
[2017-09-30 07:11] LABS: ALANINE AMINOTRANSFERASE 180 IU/L (13-69); ALBUMIN 3.8 g/dl (3.3-4.9); ALBUMIN/GLOBULIN RATIO 0.97; ALKALINE PHOSPHATASE 126 IU/L (42-121); ANION GAP 10 (8-16); ASPARTATE AMINO TRANSFERASE 207 IU/L (15-46); BILIRUBIN,INDIRECT 1.6 mg/dl (0-1.1); BILIRUBIN,TOTAL 1.6 mg/dl (0.2-1.3); BLOOD UREA NITROGEN 14 mg/dl (7-20); CALCIUM 8.9 mg/dl (8.4-10.2); CARBON DIOXIDE 27 mmol/L (21-31); CHLORIDE 106 mmol/L (97-110); CREATININE 0.64 mg/dl (0.44-1.00); GLUCOSE 115 mg/dl (70-220); POTASSIUM 4.8 mmol/L (3.5-5.1); SODIUM 138 mmol/L (135-144); TOTAL PROTEIN 7.7 g/dl (6.1-8.1)
[2017-09-30] MEDS: BISACODYL (EC) 5 MG TAB PO ×2 (08:00→16:20)
[2017-09-30] MEDS: POLYETHYLENE GLYCOL 17 GM PACKET PO ×2 (09:00→21:00)
[2017-09-30] MEDS: HYDROCORTISONE 1% 28 GM CR TOP ×2 (09:32→22:01)
[2017-09-30] MEDS: HYDROXYUREA 500 MG CAP PO ×2 (09:33→21:49)
[2017-09-30] MEDS: APIXABAN 5 MG TABLET PO ×2 (09:34→21:46)
[2017-09-30] MEDS: SOD CHLORIDE 0.9% 1,000 ML IV (15:06)
[2017-09-30 17:05] LABS: MONOTEST Positive (NEG)
[2017-09-30] MEDS: ONDANSETRON 4 MG INJ IV (17:51)
[2017-09-30] MEDS: JADENU 180 MG PO (21:50)
[2017-09-30] MEDS: JADENU 360 MG PO (21:51)
[2017-10-01] MEDS: ALBUTEROL HFA 8 GM INHALER INH ×6 (01:00→21:00)
[2017-10-01] MEDS: DIPHENHYDRAMINE 50 MG INJ IV ×6 (01:52→22:49)
[2017-10-01] MEDS: morphine 10 MG INJ IV ×6 (01:52→22:49)
[2017-10-01] MEDS: SOD CHLORIDE 0.9% 1,000 ML IV ×3 (03:00→21:22)
[2017-10-01] MEDS: PANTOPRAZOLE 40 MG INJ IV (05:52)
[2017-10-01 06:37] LABS: ADD MAN DIFF? NO
[2017-10-01 06:44] LABS: ABNORMAL IP MESSAGE 1; BASOPHIL # 0.1 10^3/ul (0.0-0.1); EOSINOPHILS # 0.6 10^3/ul (0.0-0.5); EOSINOPHILS % 5.3 % (0.0-7.0); HEMOGLOBIN 8.2 g/dl (12.0-16.0); LYMPHOCYTES # 5.2 10^3/ul (0.8-2.9); MEAN CORPUSCULAR HGB CONC 32.8 g/dl (32.0-37.0); MEAN CORPUSCULAR VOLUME 88.3 fl (82.0-101.0); MEAN PLATELET VOLUME 11.2 fl (7.4-10.4); MONOCYTE # 1.2 10^3/ul (0.3-0.9); MONOCYTES % 9.7 % (0.0-11.0); NEUTROPHIL # 4.7 10^3/ul (1.6-7.5); NEUTROPHILS % 39.7 % (39.0-77.0); NUCLEATED RED BLOOD CELLS% 0.3 /100WBC (0.0-0.0); PLATELET COUNT 292 10^3/UL (140-415); RED BLOOD COUNT 2.83 10^6/ul (4.20-5.40); RED CELL DISTRIBUTION WIDTH 18.5 % (11.5-14.5)
[2017-10-01 06:44] LABS: WHITE BLOOD COUNT 11.8 10^3/ul (4.8-10.8)
[2017-10-01 06:49] LABS: POSITIVE DIFF @See below
[2017-10-01 07:50] LABS: ANION GAP 11 (8-16); BLOOD UREA NITROGEN 13 mg/dl (7-20); CALCIUM 8.5 mg/dl (8.4-10.2); CARBON DIOXIDE 25 mmol/L (21-31); CHLORIDE 107 mmol/L (97-110); CREATININE 0.65 mg/dl (0.44-1.00); GLUCOSE 118 mg/dl (70-220); POTASSIUM 4.2 mmol/L (3.5-5.1); SODIUM 139 mmol/L (135-144)
[2017-10-01] MEDS: POLYETHYLENE GLYCOL 17 GM PACKET PO ×2 (09:00→21:00)
[2017-10-01] MEDS: HYDROXYUREA 500 MG CAP PO ×2 (11:16→22:50)
[2017-10-01] MEDS: APIXABAN 5 MG TABLET PO ×2 (11:16→22:55)
[2017-10-01] MEDS: BISACODYL (EC) 5 MG TAB PO ×3 (11:17→23:09)
[2017-10-01] MEDS: HYDROCORTISONE 1% 28 GM CR TOP ×2 (11:20→22:57)
[2017-10-01] MEDS: ONDANSETRON 4 MG INJ IV (15:12)
[2017-10-01] MEDS: JADENU 360 MG PO (22:56)
[2017-10-01] MEDS: JADENU 180 MG PO (22:56)
[2017-10-02] MEDS: ALBUTEROL HFA 8 GM INHALER INH ×6 (01:00→21:00)
[2017-10-02] MEDS: morphine 10 MG INJ IV ×6 (02:49→22:12)
[2017-10-02] MEDS: DIPHENHYDRAMINE 50 MG INJ IV ×6 (02:49→22:16)
[2017-10-02] MEDS: PANTOPRAZOLE 40 MG INJ IV (05:43)
[2017-10-02] MEDS: BISACODYL (EC) 5 MG TAB PO ×3 (08:00→17:45)
[2017-10-02] MEDS: POLYETHYLENE GLYCOL 17 GM PACKET PO ×2 (08:59→21:00)
[2017-10-02] MEDS: APIXABAN 5 MG TABLET PO ×3 (08:59→22:08)
[2017-10-02] MEDS: HYDROXYUREA 500 MG CAP PO ×3 (08:59→22:20)
[2017-10-02] MEDS: HYDROCORTISONE 1% 28 GM CR TOP ×2 (08:59→21:00)
[2017-10-02] MEDS: SOD CHLORIDE 0.9% 1,000 ML IV (12:52)
[2017-10-02 14:51] LABS: ADD MAN DIFF? NO
[2017-10-02 14:56] LABS: WHITE BLOOD COUNT 10.4 10^3/ul (4.8-10.8)
[2017-10-02 14:56] LABS: BASOPHIL # 0.1 10^3/ul (0.0-0.1); BASOPHILS % 1.3 % (0.0-2.0); EOSINOPHILS # 0.6 10^3/ul (0.0-0.5); EOSINOPHILS % 5.9 % (0.0-7.0); HEMOGLOBIN 8.2 g/dl (12.0-16.0); LYMPHOCYTES # 3.9 10^3/ul (0.8-2.9); LYMPHOCYTES % 36.9 % (15.0-51.0); MEAN CORPUSCULAR HEMOGLOBIN 28.3 pg (29.0-33.0); MEAN CORPUSCULAR HGB CONC 32.8 g/dl (32.0-37.0); MEAN CORPUSCULAR VOLUME 86.2 fl (82.0-101.0); MEAN PLATELET VOLUME 10.9 fl (7.4-10.4); MONOCYTE # 1.2 10^3/ul (0.3-0.9); NEUTROPHIL # 4.6 10^3/ul (1.6-7.5); NEUTROPHILS % 44.5 % (39.0-77.0); NUCLEATED RED BLOOD CELLS% 0.4 /100WBC (0.0-0.0); PLATELET COUNT 355 10^3/UL (140-415); RED CELL DISTRIBUTION WIDTH 18.6 % (11.5-14.5)
[2017-10-02 15:21] LABS: ANION GAP 13 (8-16); BLOOD UREA NITROGEN 15 mg/dl (7-20); CARBON DIOXIDE 27 mmol/L (21-31); CHLORIDE 104 mmol/L (97-110); CREATININE 0.73 mg/dl (0.44-1.00); GLUCOSE 113 mg/dl (70-220); POTASSIUM 4.2 mmol/L (3.5-5.1); SODIUM 140 mmol/L (135-144)
[2017-10-02] MEDS: JADENU 360 MG PO (22:06)
[2017-10-02] MEDS: JADENU 180 MG PO (22:07)
[2017-10-02] MEDS: HEPARIN (100 UNITS/ML) 5 ML SYG CATHETER (22:21)
== END 2017-10-02 22:43 | disposition home or self-care (01) | DRG 811 ==
LOC: E/R 08:21 → PP2 09:35
PROC: 30233N1 Transfusion of Nonautologous Red Blood Cells into Peripheral Vein, Percutaneous Approach (ICD-10-PCS; principal; 2017-09-17)
DX: D57.00 Hb-SS disease with crisis, unspecified (principal); A41.9 Sepsis, unspecified organism; F11.20 Opioid dependence, uncomplicated; N39.0 Urinary tract infection, site not specified; R74.0 Nonspecific elevation of levels of transaminase and lactic acid dehydrogenase [LDH]; D72.829 Elevated white blood cell count, unspecified; R19.7 Diarrhea, unspecified; R59.1 Generalized enlarged lymph nodes
CPT/HCPCS: 36415; 36430; 71045; 80048; 80053; 81001; 82728; 83036; 83690; 84484; 85025; 85610; 85730; 86308; 86850; 86900; 86901; 86920; 87081; 87086; 93005; 96374; 96375; 99291-25

== ENCOUNTER 2017-10-09 09:19 | Inpatient (IN) | payer OTHER ==
[2017-10-09] MEDS: IBUPROFEN 600 MG TAB PO (10:07)
[2017-10-09] MEDS: morphine 4 MG/ML VIAL IV ×2 (10:07→13:50)
[2017-10-09] MEDS: ONDANSETRON 4 MG INJ IV ×2 (10:07→11:31)
[2017-10-09] MEDS: SOD CHLORIDE 0.9% 500 ML IV (10:08)
[2017-10-09 10:40] LABS: ADD MAN DIFF? NO
[2017-10-09 10:49] LABS: WHITE BLOOD COUNT 11.6 10^3/ul (4.8-10.8)
[2017-10-09 10:49] LABS: BASOPHIL # 0.1 10^3/ul (0.0-0.1); BASOPHILS % 0.9 % (0.0-2.0); EOSINOPHILS # 0.3 10^3/ul (0.0-0.5); EOSINOPHILS % 2.6 % (0.0-7.0); HEMATOCRIT 23.6 % (37.0-47.0); LYMPHOCYTES # 2.7 10^3/ul (0.8-2.9); LYMPHOCYTES % 22.9 % (15.0-51.0); MEAN CORPUSCULAR HEMOGLOBIN 29.6 pg (29.0-33.0); MEAN CORPUSCULAR HGB CONC 33.9 g/dl (32.0-37.0); MEAN CORPUSCULAR VOLUME 87.4 fl (82.0-101.0); MEAN PLATELET VOLUME 10.6 fl (7.4-10.4); MONOCYTE # 1.3 10^3/ul (0.3-0.9); MONOCYTES % 11.5 % (0.0-11.0); NEUTROPHIL # 7.1 10^3/ul (1.6-7.5); NEUTROPHILS % 60.9 % (39.0-77.0); NUCLEATED RED BLOOD CELLS # 0.2 10^3/ul (0.0-0.0); NUCLEATED RED BLOOD CELLS% 1.3 /100WBC (0.0-0.0); PLATELET COUNT 409 10^3/UL (140-415); RED CELL DISTRIBUTION WIDTH 19.3 % (11.5-14.5)
[2017-10-09 11:07] LABS: ALANINE AMINOTRANSFERASE 130 IU/L (13-69); ALBUMIN 4.2 g/dl (3.3-4.9); ALBUMIN/GLOBULIN RATIO 0.97; ALKALINE PHOSPHATASE 114 IU/L (42-121); ANION GAP 15 (8-16); ASPARTATE AMINO TRANSFERASE 107 IU/L (15-46); BILIRUBIN,INDIRECT 2.2 mg/dl (0-1.1); BILIRUBIN,TOTAL 2.2 mg/dl (0.2-1.3); BLOOD UREA NITROGEN 14 mg/dl (7-20); CALCIUM 8.9 mg/dl (8.4-10.2); CARBON DIOXIDE 24 mmol/L (21-31); CHLORIDE 109 mmol/L (97-110); CREATININE 0.76 mg/dl (0.44-1.00); GLUCOSE 105 mg/dl (70-220); LIPASE 96 U/L (23-300); POTASSIUM 4.3 mmol/L (3.5-5.1); SODIUM 144 mmol/L (135-144); TOTAL PROTEIN 8.5 g/dl (6.1-8.1)
[2017-10-09] MEDS: morphine 10 MG INJ IV ×3 (11:32→21:54)
[2017-10-09 12:40] LABS: ADD UMIC YES; UR ASCORBIC ACID NEGATIVE (NEGATIVE); UR BILIRUBIN (Dip) NEGATIVE (NEGATIVE); UR BLOOD (Dip) 1+ mg/dL (NEGATIVE); UR CLARITY CLEAR (CLEAR); UR COLOR YELLOW (YELLOW); UR GLUCOSE (Dip) NEGATIVE (NEGATIVE); UR KETONES (Dip) NEGATIVE (NEGATIVE); UR LEUKOCYTE ESTERASE (Dip) TRACE Leu/ul (NEGATIVE); UR NITRITE (Dip) NEGATIVE (NEGATIVE); UR RBC 3 /HPF (0-5); UR SPECIFIC GRAVITY (Dip) 1.013 (1.003-1.030); UR SQUAMOUS EPITHELIAL CELL FEW /HPF (FEW); UR TOTAL PROTEIN (Dip) NEGATIVE (NEGATIVE); UR UROBILINOGEN (Dip) NEGATIVE (NEGATIVE); UR WBC 2 /HPF (0-5)
[2017-10-09] MEDS: CEFTRIAXONE 1 GM/50 ML (PMX) 50 ML IVPB (13:27)
[2017-10-09] MEDS ORDERED: morphine 2 MG INJ IV (14:00)
[2017-10-09] MEDS: ALBUTEROL HFA 8 GM INHALER INH ×3 (14:00→22:00)
[2017-10-09] MEDS ORDERED: ZOLPIDEM 5 MG TAB PO (14:00)
[2017-10-09] MEDS ORDERED: HYDROCODONE/APAP (5/325) TAB PO ×2 (14:00)
[2017-10-09] MEDS ORDERED: BISACODYL (EC) 5 MG TAB PO (14:00)
[2017-10-09] MEDS: DOCUSATE SODIUM 100 MG CAP PO (15:17)
[2017-10-09] MEDS: 1/2 NS + KCL 20 MEQ 1,000 ML IV ×2 (15:31→23:43)
[2017-10-09] MEDS: DIPHENHYDRAMINE 50 MG INJ IV ×2 (17:57→21:54)
[2017-10-09] MEDS: APIXABAN 5 MG TABLET PO (21:52)
[2017-10-09] MEDS: FAMOTIDINE 20 MG TAB PO (21:52)
[2017-10-09] MEDS: HYDROXYUREA 500 MG CAP PO (21:57)
[2017-10-09] MEDS: POLYETHYLENE GLYCOL 17 GM PACKET PO (21:59)
[2017-10-10] MEDS: FLUCONAZOLE 100 MG/50 ML (PMX) 50 ML IVPB (01:53)
[2017-10-10] MEDS: DIPHENHYDRAMINE 50 MG INJ IV ×5 (01:54→17:43)
[2017-10-10] MEDS: morphine 10 MG INJ IV ×6 (01:54→21:48)
[2017-10-10] MEDS: ALBUTEROL HFA 8 GM INHALER INH ×6 (01:57→22:00)
[2017-10-10] MEDS: ONDANSETRON 4 MG INJ IV (02:12)
[2017-10-10] MEDS: 1/2 NS + KCL 20 MEQ 1,000 ML IV ×2 (03:11→13:49)
[2017-10-10] MEDS: MEROPENEM 1 GM/50ML(PMX) 50 ML IVPB ×3 (05:48→21:59)
[2017-10-10] MEDS: DOCUSATE SODIUM 100 MG CAP PO ×2 (09:00→21:36)
[2017-10-10] MEDS: POLYETHYLENE GLYCOL 17 GM PACKET PO ×2 (09:00→21:36)
[2017-10-10] MEDS: APIXABAN 5 MG TABLET PO ×2 (09:49→21:36)
[2017-10-10] MEDS: FOLIC ACID 1 MG TAB PO (09:49)
[2017-10-10] MEDS: FAMOTIDINE 20 MG TAB PO ×2 (09:49→21:59)
[2017-10-10] MEDS: HYDROXYUREA 500 MG CAP PO ×2 (10:02→21:37)
[2017-10-10 16:22] LABS: ADD MAN DIFF? NO
[2017-10-10 16:23] LABS: WHITE BLOOD COUNT 11.4 10^3/ul (4.8-10.8)
[2017-10-10 16:23] LABS: BASOPHIL # 0.1 10^3/ul (0.0-0.1); BASOPHILS % 0.9 % (0.0-2.0); EOSINOPHILS # 0.7 10^3/ul (0.0-0.5); EOSINOPHILS % 6.4 % (0.0-7.0); HEMATOCRIT 22.3 % (37.0-47.0); HEMOGLOBIN 7.6 g/dl (12.0-16.0); LYMPHOCYTES % 34.7 % (15.0-51.0); MEAN CORPUSCULAR HEMOGLOBIN 29.7 pg (29.0-33.0); MEAN CORPUSCULAR HGB CONC 34.1 g/dl (32.0-37.0); MEAN CORPUSCULAR VOLUME 87.1 fl (82.0-101.0); MEAN PLATELET VOLUME 10.2 fl (7.4-10.4); MONOCYTE # 1.2 10^3/ul (0.3-0.9); MONOCYTES % 10.6 % (0.0-11.0); NEUTROPHIL # 5.3 10^3/ul (1.6-7.5); NEUTROPHILS % 46.4 % (39.0-77.0); NUCLEATED RED BLOOD CELLS # 0.2 10^3/ul (0.0-0.0); NUCLEATED RED BLOOD CELLS% 1.7 /100WBC (0.0-0.0); PLATELET COUNT 352 10^3/UL (140-415); RED BLOOD COUNT 2.56 10^6/ul (4.20-5.40); RED CELL DISTRIBUTION WIDTH 19.5 % (11.5-14.5)
[2017-10-10 16:41] LABS: ALANINE AMINOTRANSFERASE 102 IU/L (13-69); ALBUMIN 3.8 g/dl (3.3-4.9); ALBUMIN/GLOBULIN RATIO 0.88; ALKALINE PHOSPHATASE 150 IU/L (42-121); ANION GAP 14 (8-16); ASPARTATE AMINO TRANSFERASE 87 IU/L (15-46); BILIRUBIN,INDIRECT 2.1 mg/dl (0-1.1); BILIRUBIN,TOTAL 2.1 mg/dl (0.2-1.3); BLOOD UREA NITROGEN 10 mg/dl (7-20); CALCIUM 8.6 mg/dl (8.4-10.2); CARBON DIOXIDE 25 mmol/L (21-31); CHLORIDE 105 mmol/L (97-110); GLUCOSE 111 mg/dl (70-220); POTASSIUM 4.5 mmol/L (3.5-5.1); SODIUM 139 mmol/L (135-144); TOTAL PROTEIN 8.1 g/dl (6.1-8.1)
[2017-10-10 17:09] LABS: MONOTEST Negative (NEG)
[2017-10-10] MEDS: BISACODYL (EC) 5 MG TAB PO (21:36)
[2017-10-10 21:54] LABS: HEMATOCRIT 23.5 % (37.0-47.0)
[2017-10-11] MEDS: FLUCONAZOLE 100 MG/50 ML (PMX) 50 ML IVPB (01:48)
[2017-10-11] MEDS: DIPHENHYDRAMINE 50 MG INJ IV ×6 (01:48→21:40)
[2017-10-11] MEDS: morphine 10 MG INJ IV ×6 (01:49→21:40)
[2017-10-11] MEDS: ALBUTEROL HFA 8 GM INHALER INH ×6 (02:00→22:00)
[2017-10-11] MEDS: 1/2 NS + KCL 20 MEQ 1,000 ML IV ×2 (05:45→15:43)
[2017-10-11] MEDS: MEROPENEM 1 GM/50ML(PMX) 50 ML IVPB ×3 (05:47→22:00)
[2017-10-11 06:11] LABS: ADD MAN DIFF? NO
[2017-10-11 06:45] LABS: BASOPHIL # 0.2 10^3/ul (0.0-0.1); BASOPHILS % 1.5 % (0.0-2.0); EOSINOPHILS # 0.7 10^3/ul (0.0-0.5); EOSINOPHILS % 7.2 % (0.0-7.0); HEMOGLOBIN 7.3 g/dl (12.0-16.0); LYMPHOCYTES # 3.8 10^3/ul (0.8-2.9); LYMPHOCYTES % 36.5 % (15.0-51.0); MEAN CORPUSCULAR HEMOGLOBIN 29.1 pg (29.0-33.0); MEAN CORPUSCULAR HGB CONC 33.2 g/dl (32.0-37.0); MEAN CORPUSCULAR VOLUME 87.6 fl (82.0-101.0); MEAN PLATELET VOLUME 11.1 fl (7.4-10.4); MONOCYTE # 1.4 10^3/ul (0.3-0.9); MONOCYTES % 13.8 % (0.0-11.0); NEUTROPHIL # 4.1 10^3/ul (1.6-7.5); NEUTROPHILS % 39.6 % (39.0-77.0); NUCLEATED RED BLOOD CELLS # 0.2 10^3/ul (0.0-0.0); NUCLEATED RED BLOOD CELLS% 1.8 /100WBC (0.0-0.0); PLATELET COUNT 350 10^3/UL (140-415); RED BLOOD COUNT 2.51 10^6/ul (4.20-5.40); RED CELL DISTRIBUTION WIDTH 19.1 % (11.5-14.5)
[2017-10-11 06:45] LABS: WHITE BLOOD COUNT 10.3 10^3/ul (4.8-10.8)
[2017-10-11 07:12] LABS: ANION GAP 13 (8-16); BLOOD UREA NITROGEN 14 mg/dl (7-20); CALCIUM 8.5 mg/dl (8.4-10.2); CARBON DIOXIDE 26 mmol/L (21-31); CHLORIDE 104 mmol/L (97-110); CREATININE 0.93 mg/dl (0.44-1.00); GLUCOSE 112 mg/dl (70-220); POTASSIUM 4.6 mmol/L (3.5-5.1); SODIUM 138 mmol/L (135-144)
[2017-10-11] MEDS: DOCUSATE SODIUM 100 MG CAP PO ×2 (09:32→21:32)
[2017-10-11] MEDS: FAMOTIDINE 20 MG TAB PO ×2 (09:32→21:29)
[2017-10-11] MEDS: FOLIC ACID 1 MG TAB PO (09:32)
[2017-10-11] MEDS: APIXABAN 5 MG TABLET PO ×2 (09:32→21:29)
[2017-10-11] MEDS: POLYETHYLENE GLYCOL 17 GM PACKET PO ×2 (09:32→21:29)
[2017-10-11] MEDS: HYDROXYUREA 500 MG CAP PO ×2 (09:33→21:30)
[2017-10-11] MEDS: BISACODYL (EC) 5 MG TAB PO ×2 (09:48→21:29)
[2017-10-12] MEDS: ACETAMINOPHEN 325 MG TAB PO ×2 (00:49→23:29)
[2017-10-12] MEDS: DIPHENHYDRAMINE 25 MG CAP PO (00:50)
[2017-10-12] MEDS: DIPHENHYDRAMINE 50 MG INJ IV ×8 (01:37→23:32)
[2017-10-12] MEDS: morphine 10 MG INJ IV ×6 (01:37→22:01)
[2017-10-12] MEDS: ALBUTEROL HFA 8 GM INHALER INH ×6 (02:00→22:00)
[2017-10-12] MEDS: FLUCONAZOLE 100 MG/50 ML (PMX) 50 ML IVPB (02:30)
[2017-10-12] MEDS: 1/2 NS + KCL 20 MEQ 1,000 ML IV ×3 (02:31→21:43)
[2017-10-12] MEDS: MEROPENEM 1 GM/50ML(PMX) 50 ML IVPB ×3 (05:14→22:00)
[2017-10-12 06:37] LABS: ADD MAN DIFF? NO
[2017-10-12 07:12] LABS: ANION GAP 14 (8-16); BLOOD UREA NITROGEN 10 mg/dl (7-20); CALCIUM 8.8 mg/dl (8.4-10.2); CARBON DIOXIDE 26 mmol/L (21-31); CHLORIDE 104 mmol/L (97-110); CREATININE 0.71 mg/dl (0.44-1.00); GLUCOSE 98 mg/dl (70-220); POTASSIUM 4.6 mmol/L (3.5-5.1); SODIUM 139 mmol/L (135-144)
[2017-10-12 09:27] LABS: WHITE BLOOD COUNT 6.8 10^3/ul (4.8-10.8)
[2017-10-12 09:27] LABS: ABNORMAL IP MESSAGE 1; BASOPHILS % 0.4 % (0.0-2.0); EOSINOPHILS # 0.3 10^3/ul (0.0-0.5); HEMATOCRIT 16.5 % (37.0-47.0); LYMPHOCYTES # 2.7 10^3/ul (0.8-2.9); LYMPHOCYTES % 40.1 % (15.0-51.0); MEAN CORPUSCULAR HEMOGLOBIN 29.9 pg (29.0-33.0); MEAN CORPUSCULAR HGB CONC 33.9 g/dl (32.0-37.0); MEAN CORPUSCULAR VOLUME 88.2 fl (82.0-101.0); MEAN PLATELET VOLUME 10.2 fl (7.4-10.4); MONOCYTE # 0.7 10^3/ul (0.3-0.9); NEUTROPHIL # 2.9 10^3/ul (1.6-7.5); NEUTROPHILS % 42.9 % (39.0-77.0); NUCLEATED RED BLOOD CELLS # 0.1 10^3/ul (0.0-0.0); NUCLEATED RED BLOOD CELLS% 1.5 /100WBC (0.0-0.0); RED BLOOD COUNT 1.87 10^6/ul (4.20-5.40); RED CELL DISTRIBUTION WIDTH 17.9 % (11.5-14.5)
[2017-10-12 09:35] LABS: PLATELET COUNT 117 10^3/UL (140-415); POSITIVE DIFF @See below
[2017-10-12 09:42] LABS: HEMOGLOBIN 5.6 g/dl (12.0-16.0)
[2017-10-12] MEDS: FOLIC ACID 1 MG TAB PO (09:59)
[2017-10-12] MEDS: FAMOTIDINE 20 MG TAB PO ×2 (09:59→22:11)
[2017-10-12] MEDS: DOCUSATE SODIUM 100 MG CAP PO ×2 (10:00→22:11)
[2017-10-12] MEDS: POLYETHYLENE GLYCOL 17 GM PACKET PO ×2 (10:00→22:12)
[2017-10-12] MEDS: APIXABAN 5 MG TABLET PO ×2 (10:00→22:11)
[2017-10-12] MEDS: BISACODYL (EC) 5 MG TAB PO ×2 (10:00→22:11)
[2017-10-12] MEDS: HYDROXYUREA 500 MG CAP PO ×2 (10:01→22:12)
[2017-10-12 11:02] LABS: ANISOCYTOSIS 1+ (0-0); BAND NEUTROPHILS #M 0.2 10^3/ul (0.0-0.6); BAND NEUTROPHILS % (M) 3 % (0-4); BASOPHIL #M 0.1 10^3/ul (0.0-0.0); BASOPHILS % (M) 2 % (0-2); EOSINOPHILS % (M) 3 % (0-7); ERYTHROBLAST% (NRBC) (M) 2 % (0-0); HYPOCHROMASIA 1+ (0-0); LYMPHOCYTES #M 2.4 10^3/ul (0.8-2.9); LYMPHOCYTES % (M) 36 % (15-51); MONOCYTE #M 0.9 10^3/ul (0.3-0.9); MONOCYTES % (M) 14 % (0-11); MYELOCYTES % (M) 1 % (0-0); PLATELET ESTIMATE DECREASED; POLYCHROMASIA 3+ (0-0); SEG NEUT #M 2.8 10^3/ul (1.6-7.5); SEGMENTED NEUTROPHILS (M) % 41 % (39-77); SMUDGE%M 7 % (0-0)
[2017-10-12 13:35] LABS: IMMEDIATE SPIN CROSSMATCH 1 3
[2017-10-12] MEDS: ONDANSETRON 4 MG INJ IV (19:04)
[2017-10-12] MEDS: HYDROCORTISONE 1% 28 GM CR TOP (22:14)
[2017-10-13] MEDS: FLUCONAZOLE 100 MG/50 ML (PMX) 50 ML IVPB (01:52)
[2017-10-13] MEDS: LINEZOLID 600 MG/D5W (PMX) 300 ML IVPB ×3 (01:52→21:24)
[2017-10-13] MEDS: DIPHENHYDRAMINE 50 MG INJ IV ×6 (01:53→23:00)
[2017-10-13] MEDS: morphine 10 MG INJ IV ×6 (01:53→23:00)
[2017-10-13] MEDS: ALBUTEROL HFA 8 GM INHALER INH ×6 (02:00→22:00)
[2017-10-13] MEDS: MEROPENEM 1 GM/50ML(PMX) 50 ML IVPB ×2 (05:50→14:31)
[2017-10-13] MEDS: 1/2 NS + KCL 20 MEQ 1,000 ML IV ×2 (07:43→14:31)
[2017-10-13] MEDS: FOLIC ACID 1 MG TAB PO (11:24)
[2017-10-13] MEDS: DOCUSATE SODIUM 100 MG CAP PO ×2 (11:24→21:33)
[2017-10-13] MEDS: BISACODYL (EC) 5 MG TAB PO ×2 (11:24→21:33)
[2017-10-13] MEDS: APIXABAN 5 MG TABLET PO ×2 (11:25→21:33)
[2017-10-13] MEDS: FAMOTIDINE 20 MG TAB PO ×2 (11:25→21:33)
[2017-10-13] MEDS: POLYETHYLENE GLYCOL 17 GM PACKET PO ×2 (11:25→21:32)
[2017-10-13] MEDS: HYDROCORTISONE 1% 28 GM CR TOP (11:25)
[2017-10-13] MEDS: HYDROXYUREA 500 MG CAP PO ×2 (11:27→21:32)
[2017-10-13 14:58] LABS: ADD MAN DIFF? NO
[2017-10-13 15:00] LABS: BASOPHIL # 0.1 10^3/ul (0.0-0.1); BASOPHILS % 1.1 % (0.0-2.0); EOSINOPHILS # 0.6 10^3/ul (0.0-0.5); EOSINOPHILS % 6.9 % (0.0-7.0); HEMATOCRIT 31.5 % (37.0-47.0); HEMOGLOBIN 10.6 g/dl (12.0-16.0); LYMPHOCYTES # 3.8 10^3/ul (0.8-2.9); MEAN CORPUSCULAR HEMOGLOBIN 30.1 pg (29.0-33.0); MEAN CORPUSCULAR HGB CONC 33.7 g/dl (32.0-37.0); MEAN CORPUSCULAR VOLUME 89.5 fl (82.0-101.0); MEAN PLATELET VOLUME 10.8 fl (7.4-10.4); MONOCYTE # 1.2 10^3/ul (0.3-0.9); MONOCYTES % 12.6 % (0.0-11.0); NEUTROPHIL # 3.5 10^3/ul (1.6-7.5); NEUTROPHILS % 37.6 % (39.0-77.0); NUCLEATED RED BLOOD CELLS # 0.1 10^3/ul (0.0-0.0); NUCLEATED RED BLOOD CELLS% 1.4 /100WBC (0.0-0.0); PLATELET COUNT 306 10^3/UL (140-415); RED BLOOD COUNT 3.52 10^6/ul (4.20-5.40); RED CELL DISTRIBUTION WIDTH 18.4 % (11.5-14.5)
[2017-10-13 15:00] LABS: WHITE BLOOD COUNT 9.2 10^3/ul (4.8-10.8)
[2017-10-13] MEDS: ONDANSETRON 4 MG INJ IV (15:04)
[2017-10-13 15:20] LABS: ANION GAP 13 (8-16); BLOOD UREA NITROGEN 9 mg/dl (7-20); CARBON DIOXIDE 27 mmol/L (21-31); CHLORIDE 103 mmol/L (97-110); CREATININE 0.66 mg/dl (0.44-1.00); GLUCOSE 85 mg/dl (70-220); POTASSIUM 5.4 mmol/L (3.5-5.1); SODIUM 138 mmol/L (135-144)
[2017-10-13] MEDS: DEXTROSE 5%-0.45% NACL 1,000 ML IV (16:26)
[2017-10-13] MEDS: NA POLYST SULFON 15 GM/60 ML BTL PO (16:58)
[2017-10-13] MEDS: CALAMINE 170 ML LOT TOP (21:32)
[2017-10-14] MEDS: FLUCONAZOLE 100 MG/50 ML (PMX) 50 ML IVPB (01:39)
[2017-10-14] MEDS: ALBUTEROL HFA 8 GM INHALER INH ×7 (01:39→22:06)
[2017-10-14] MEDS: DIPHENHYDRAMINE 50 MG INJ IV ×6 (03:02→22:59)
[2017-10-14] MEDS: morphine 10 MG INJ IV ×6 (03:02→23:00)
[2017-10-14] MEDS: DEXTROSE 5%-0.45% NACL 1,000 ML IV ×2 (06:02→20:36)
[2017-10-14] MEDS: LINEZOLID 600 MG/D5W (PMX) 300 ML IVPB ×2 (08:20→22:04)
[2017-10-14] MEDS ORDERED: CIPROFLOXACIN 400MG/D5W 200 ML IVPB (09:00)
[2017-10-14 09:28] LABS: ADD MAN DIFF? NO
[2017-10-14 09:33] LABS: ABNORMAL IP MESSAGE 1; BASOPHIL # 0.1 10^3/ul (0.0-0.1); BASOPHILS % 1.3 % (0.0-2.0); EOSINOPHILS # 0.9 10^3/ul (0.0-0.5); EOSINOPHILS % 8.4 % (0.0-7.0); HEMATOCRIT 29.2 % (37.0-47.0); HEMOGLOBIN 9.7 g/dl (12.0-16.0); LYMPHOCYTES # 4.7 10^3/ul (0.8-2.9); LYMPHOCYTES % 45.5 % (15.0-51.0); MEAN CORPUSCULAR HEMOGLOBIN 29.8 pg (29.0-33.0); MEAN CORPUSCULAR HGB CONC 33.2 g/dl (32.0-37.0); MEAN CORPUSCULAR VOLUME 89.8 fl (82.0-101.0); MEAN PLATELET VOLUME 10.9 fl (7.4-10.4); MONOCYTE # 1.6 10^3/ul (0.3-0.9); MONOCYTES % 15.3 % (0.0-11.0); NEUTROPHILS % 28.9 % (39.0-77.0); NUCLEATED RED BLOOD CELLS # 0.1 10^3/ul (0.0-0.0); PLATELET COUNT 303 10^3/UL (140-415); RED BLOOD COUNT 3.25 10^6/ul (4.20-5.40)
[2017-10-14 09:33] LABS: WHITE BLOOD COUNT 10.4 10^3/ul (4.8-10.8)
[2017-10-14 09:44] LABS: POSITIVE DIFF @See below
[2017-10-14 10:18] LABS: ANION GAP 13 (8-16)
[2017-10-14 10:19] LABS: BLOOD UREA NITROGEN 9 mg/dl (7-20); CALCIUM 8.9 mg/dl (8.4-10.2); CARBON DIOXIDE 28 mmol/L (21-31); CHLORIDE 103 mmol/L (97-110); CREATININE 0.69 mg/dl (0.44-1.00); GLUCOSE 89 mg/dl (70-220); POTASSIUM 4.6 mmol/L (3.5-5.1); SODIUM 139 mmol/L (135-144)
[2017-10-14] MEDS: HYDROXYUREA 500 MG CAP PO ×2 (11:08→22:06)
[2017-10-14] MEDS: FAMOTIDINE 20 MG TAB PO ×2 (11:08→22:05)
[2017-10-14] MEDS: FOLIC ACID 1 MG TAB PO (11:09)
[2017-10-14] MEDS: APIXABAN 5 MG TABLET PO ×2 (11:09→22:04)
[2017-10-14] MEDS: POLYETHYLENE GLYCOL 17 GM PACKET PO ×2 (11:09→22:06)
[2017-10-14] MEDS: CALAMINE 170 ML LOT TOP ×3 (11:09→22:06)
[2017-10-14] MEDS: BISACODYL (EC) 5 MG TAB PO ×2 (11:09→22:04)
[2017-10-14] MEDS: DOCUSATE SODIUM 100 MG CAP PO ×2 (11:09→22:04)
[2017-10-14] MEDS: CIPROFLOXACIN 400MG/D5W 200 ML IVPB (12:46)
[2017-10-14] MEDS: ONDANSETRON 4 MG INJ IV (15:05)
[2017-10-15] MEDS: CIPROFLOXACIN 400MG/D5W 200 ML IVPB ×2 (00:27→13:05)
[2017-10-15] MEDS: ALBUTEROL HFA 8 GM INHALER INH ×6 (02:00→22:00)
[2017-10-15] MEDS: ONDANSETRON 4 MG INJ IV ×2 (02:55→10:38)
[2017-10-15] MEDS: FLUCONAZOLE 100 MG/50 ML (PMX) 50 ML IVPB (02:55)
[2017-10-15] MEDS: morphine 10 MG INJ IV ×6 (02:59→22:25)
[2017-10-15] MEDS: DIPHENHYDRAMINE 50 MG INJ IV ×6 (02:59→22:25)
[2017-10-15] MEDS: LINEZOLID 600 MG/D5W (PMX) 300 ML IVPB ×2 (08:39→22:53)
[2017-10-15] MEDS: FOLIC ACID 1 MG TAB PO (10:26)
[2017-10-15] MEDS: APIXABAN 5 MG TABLET PO ×2 (10:26→22:57)
[2017-10-15] MEDS: FAMOTIDINE 20 MG TAB PO ×2 (10:26→22:59)
[2017-10-15] MEDS: BISACODYL (EC) 5 MG TAB PO ×2 (10:26→22:57)
[2017-10-15] MEDS: POLYETHYLENE GLYCOL 17 GM PACKET PO ×2 (10:26→22:59)
[2017-10-15] MEDS: DOCUSATE SODIUM 100 MG CAP PO ×2 (10:26→22:57)
[2017-10-15] MEDS: HYDROXYUREA 500 MG CAP PO ×2 (10:29→22:58)
[2017-10-15] MEDS: CALAMINE 170 ML LOT TOP ×3 (10:30→22:59)
[2017-10-15] MEDS: DEXTROSE 5%-0.45% NACL 1,000 ML IV ×2 (10:54→18:23)
[2017-10-15] MEDS: BACITRACIN/POLYMYXIN 28.35 GM OINT TOP (22:59)
[2017-10-16] MEDS: ALBUTEROL HFA 8 GM INHALER INH ×6 (02:00→22:00)
[2017-10-16] MEDS: morphine 10 MG INJ IV ×6 (02:28→22:56)
[2017-10-16] MEDS: DIPHENHYDRAMINE 50 MG INJ IV ×6 (02:28→22:55)
[2017-10-16] MEDS: CIPROFLOXACIN 400MG/D5W 200 ML IVPB ×2 (02:28→12:17)
[2017-10-16] MEDS: HYDROXYUREA 500 MG CAP PO ×2 (09:00→22:50)
[2017-10-16] MEDS: CALAMINE 170 ML LOT TOP ×3 (09:00→22:49)
[2017-10-16] MEDS: APIXABAN 5 MG TABLET PO ×2 (10:46→22:49)
[2017-10-16] MEDS: FOLIC ACID 1 MG TAB PO (10:47)
[2017-10-16] MEDS: FAMOTIDINE 20 MG TAB PO ×2 (10:47→22:48)
[2017-10-16] MEDS: POLYETHYLENE GLYCOL 17 GM PACKET PO ×2 (10:47→22:48)
[2017-10-16] MEDS: BACITRACIN/POLYMYXIN 28.35 GM OINT TOP ×2 (10:47→22:49)
[2017-10-16] MEDS: DOCUSATE SODIUM 100 MG CAP PO ×2 (10:47→22:48)
[2017-10-16] MEDS: BISACODYL (EC) 5 MG TAB PO ×2 (10:47→22:48)
[2017-10-16] MEDS: DEXTROSE 5%-0.45% NACL 1,000 ML IV (15:09)
[2017-10-16 15:34] LABS: ADD MAN DIFF? NO
[2017-10-16 15:36] LABS: BASOPHIL # 0.1 10^3/ul (0.0-0.1); BASOPHILS % 0.8 % (0.0-2.0); EOSINOPHILS # 0.5 10^3/ul (0.0-0.5); EOSINOPHILS % 4.1 % (0.0-7.0); HEMATOCRIT 29.4 % (37.0-47.0); HEMOGLOBIN 9.9 g/dl (12.0-16.0); LYMPHOCYTES # 3.6 10^3/ul (0.8-2.9); LYMPHOCYTES % 31.6 % (15.0-51.0); MEAN CORPUSCULAR HEMOGLOBIN 30.4 pg (29.0-33.0); MEAN CORPUSCULAR HGB CONC 33.7 g/dl (32.0-37.0); MEAN CORPUSCULAR VOLUME 90.2 fl (82.0-101.0); MEAN PLATELET VOLUME 10.7 fl (7.4-10.4); MONOCYTES % 9.1 % (0.0-11.0); NEUTROPHIL # 6.2 10^3/ul (1.6-7.5); NUCLEATED RED BLOOD CELLS # 0.1 10^3/ul (0.0-0.0); NUCLEATED RED BLOOD CELLS% 0.4 /100WBC (0.0-0.0); PLATELET COUNT 220 10^3/UL (140-415); RED BLOOD COUNT 3.26 10^6/ul (4.20-5.40); RED CELL DISTRIBUTION WIDTH 19.1 % (11.5-14.5)
[2017-10-16 15:36] LABS: WHITE BLOOD COUNT 11.4 10^3/ul (4.8-10.8)
[2017-10-16 16:02] LABS: ANION GAP 15 (8-16); BLOOD UREA NITROGEN 14 mg/dl (7-20); CALCIUM 8.7 mg/dl (8.4-10.2); CARBON DIOXIDE 23 mmol/L (21-31); CHLORIDE 106 mmol/L (97-110); CREATININE 0.88 mg/dl (0.44-1.00); GLUCOSE 94 mg/dl (70-220); POTASSIUM 4.9 mmol/L (3.5-5.1); SODIUM 139 mmol/L (135-144)
[2017-10-16] MEDS: CLOTRIMAZOLE 1% 45 GM VAG CR VAG (22:49)
[2017-10-17] MEDS: DEXTROSE 5%-0.45% NACL 1,000 ML IV ×2 (00:41→19:36)
[2017-10-17] MEDS: CIPROFLOXACIN 400MG/D5W 200 ML IVPB ×3 (00:41→23:42)
[2017-10-17] MEDS: ALBUTEROL HFA 8 GM INHALER INH ×6 (01:31→22:00)
[2017-10-17] MEDS: morphine 10 MG INJ IV ×6 (02:59→23:37)
[2017-10-17] MEDS: DIPHENHYDRAMINE 50 MG INJ IV ×6 (02:59→23:37)
[2017-10-17] MEDS: FOLIC ACID 1 MG TAB PO ×2 (08:38→12:14)
[2017-10-17] MEDS: HYDROXYUREA 500 MG CAP PO ×3 (08:38→20:27)
[2017-10-17] MEDS: APIXABAN 5 MG TABLET PO ×3 (08:38→20:25)
[2017-10-17] MEDS: DOCUSATE SODIUM 100 MG CAP PO ×3 (08:38→20:25)
[2017-10-17] MEDS: BISACODYL (EC) 5 MG TAB PO ×3 (08:38→20:25)
[2017-10-17] MEDS: FAMOTIDINE 20 MG TAB PO ×3 (08:39→20:25)
[2017-10-17] MEDS: BACITRACIN/POLYMYXIN 28.35 GM OINT TOP ×3 (08:39→20:25)
[2017-10-17] MEDS: POLYETHYLENE GLYCOL 17 GM PACKET PO ×3 (08:39→20:25)
[2017-10-17] MEDS: CALAMINE 170 ML LOT TOP ×4 (08:39→20:34)
[2017-10-17 14:45] LABS: ADD MAN DIFF? NO
[2017-10-17 14:48] LABS: WHITE BLOOD COUNT 10.5 10^3/ul (4.8-10.8)
[2017-10-17 14:48] LABS: BASOPHIL # 0.1 10^3/ul (0.0-0.1); BASOPHILS % 0.8 % (0.0-2.0); EOSINOPHILS # 0.4 10^3/ul (0.0-0.5); EOSINOPHILS % 3.8 % (0.0-7.0); HEMATOCRIT 28.7 % (37.0-47.0); HEMOGLOBIN 9.5 g/dl (12.0-16.0); LYMPHOCYTES # 2.7 10^3/ul (0.8-2.9); LYMPHOCYTES % 25.2 % (15.0-51.0); MEAN CORPUSCULAR HEMOGLOBIN 29.7 pg (29.0-33.0); MEAN CORPUSCULAR HGB CONC 33.1 g/dl (32.0-37.0); MEAN CORPUSCULAR VOLUME 89.7 fl (82.0-101.0); MEAN PLATELET VOLUME 10.6 fl (7.4-10.4); MONOCYTE # 1.1 10^3/ul (0.3-0.9); NEUTROPHIL # 6.3 10^3/ul (1.6-7.5); NEUTROPHILS % 59.8 % (39.0-77.0); NUCLEATED RED BLOOD CELLS% 0.3 /100WBC (0.0-0.0); PLATELET COUNT 210 10^3/UL (140-415); RED CELL DISTRIBUTION WIDTH 19.5 % (11.5-14.5)
[2017-10-17] MEDS: CLOTRIMAZOLE 1% 45 GM VAG CR VAG (22:48)
[2017-10-18] MEDS: ALBUTEROL HFA 8 GM INHALER INH ×6 (02:00→21:51)
[2017-10-18] MEDS: morphine 10 MG INJ IV ×5 (03:35→21:58)
[2017-10-18] MEDS: DIPHENHYDRAMINE 50 MG INJ IV ×5 (03:35→21:58)
[2017-10-18] MEDS: ONDANSETRON 4 MG INJ IV (03:35)
[2017-10-18] MEDS: CALAMINE 170 ML LOT TOP ×3 (09:50→21:14)
[2017-10-18] MEDS: APIXABAN 5 MG TABLET PO ×2 (09:50→21:12)
[2017-10-18] MEDS: FAMOTIDINE 20 MG TAB PO ×2 (09:50→21:16)
[2017-10-18] MEDS: BISACODYL (EC) 5 MG TAB PO ×2 (09:50→21:12)
[2017-10-18] MEDS: FOLIC ACID 1 MG TAB PO (09:50)
[2017-10-18] MEDS: POLYETHYLENE GLYCOL 17 GM PACKET PO ×2 (09:50→21:12)
[2017-10-18] MEDS: BACITRACIN/POLYMYXIN 28.35 GM OINT TOP ×3 (09:50→21:14)
[2017-10-18] MEDS: DOCUSATE SODIUM 100 MG CAP PO ×2 (09:50→21:12)
[2017-10-18] MEDS: HYDROXYUREA 500 MG CAP PO ×2 (09:51→21:13)
[2017-10-18] MEDS: DEXTROSE 5%-0.45% NACL 1,000 ML IV ×2 (10:00→21:50)
[2017-10-18] MEDS: CIPROFLOXACIN 400MG/D5W 200 ML IVPB (11:47)
[2017-10-18 12:28] LABS: ADD MAN DIFF? NO
[2017-10-18 13:00] LABS: BASOPHIL # 0.1 10^3/ul (0.0-0.1); BASOPHILS % 0.7 % (0.0-2.0); EOSINOPHILS # 0.3 10^3/ul (0.0-0.5); EOSINOPHILS % 3.6 % (0.0-7.0); HEMATOCRIT 28.9 % (37.0-47.0); HEMOGLOBIN 9.6 g/dl (12.0-16.0); LYMPHOCYTES # 2.1 10^3/ul (0.8-2.9); LYMPHOCYTES % 23.4 % (15.0-51.0); MEAN CORPUSCULAR HEMOGLOBIN 30.6 pg (29.0-33.0); MEAN CORPUSCULAR HGB CONC 33.2 g/dl (32.0-37.0); MEAN PLATELET VOLUME 11.3 fl (7.4-10.4); MONOCYTE # 0.8 10^3/ul (0.3-0.9); MONOCYTES % 9.1 % (0.0-11.0); NEUTROPHIL # 5.7 10^3/ul (1.6-7.5); NEUTROPHILS % 62.8 % (39.0-77.0); NUCLEATED RED BLOOD CELLS% 0.2 /100WBC (0.0-0.0); PLATELET COUNT 196 10^3/UL (140-415); RED BLOOD COUNT 3.14 10^6/ul (4.20-5.40); RED CELL DISTRIBUTION WIDTH 19.3 % (11.5-14.5)
[2017-10-18 13:00] LABS: WHITE BLOOD COUNT 9.1 10^3/ul (4.8-10.8)
[2017-10-18] MEDS: CLOTRIMAZOLE 1% 45 GM VAG CR VAG (21:15)
[2017-10-19] MEDS: CIPROFLOXACIN 400MG/D5W 200 ML IVPB ×2 (00:05→11:30)
[2017-10-19] MEDS: DIPHENHYDRAMINE 50 MG INJ IV ×6 (01:59→22:12)
[2017-10-19] MEDS: morphine 10 MG INJ IV ×6 (01:59→22:13)
[2017-10-19] MEDS: ALBUTEROL HFA 8 GM INHALER INH ×6 (02:00→22:00)
[2017-10-19 06:05] LABS: ADD MAN DIFF? NO
[2017-10-19 06:11] LABS: WHITE BLOOD COUNT 11.6 10^3/ul (4.8-10.8)
[2017-10-19 06:11] LABS: ABNORMAL IP MESSAGE 1; BASOPHIL # 0.1 10^3/ul (0.0-0.1); BASOPHILS % 1.1 % (0.0-2.0); EOSINOPHILS # 0.7 10^3/ul (0.0-0.5); EOSINOPHILS % 6.1 % (0.0-7.0); HEMATOCRIT 32.6 % (37.0-47.0); HEMOGLOBIN 10.4 g/dl (12.0-16.0); LYMPHOCYTES # 5.2 10^3/ul (0.8-2.9); LYMPHOCYTES % 44.8 % (15.0-51.0); MEAN CORPUSCULAR HEMOGLOBIN 29.1 pg (29.0-33.0); MEAN CORPUSCULAR HGB CONC 31.9 g/dl (32.0-37.0); MEAN CORPUSCULAR VOLUME 91.1 fl (82.0-101.0); MEAN PLATELET VOLUME 10.9 fl (7.4-10.4); MONOCYTE # 1.6 10^3/ul (0.3-0.9); MONOCYTES % 13.4 % (0.0-11.0); NEUTROPHILS % 34.1 % (39.0-77.0); NUCLEATED RED BLOOD CELLS% 0.3 /100WBC (0.0-0.0); PLATELET COUNT 201 10^3/UL (140-415); RED BLOOD COUNT 3.58 10^6/ul (4.20-5.40); RED CELL DISTRIBUTION WIDTH 19.6 % (11.5-14.5)
[2017-10-19 07:16] LABS: POSITIVE DIFF @See below
[2017-10-19] MEDS: CALAMINE 170 ML LOT TOP ×3 (09:00→21:00)
[2017-10-19] MEDS: FAMOTIDINE 20 MG TAB PO ×2 (10:04→22:13)
[2017-10-19] MEDS: FOLIC ACID 1 MG TAB PO (10:04)
[2017-10-19] MEDS: APIXABAN 5 MG TABLET PO ×2 (10:04→22:13)
[2017-10-19] MEDS: DOCUSATE SODIUM 100 MG CAP PO ×2 (10:04→22:13)
[2017-10-19] MEDS: BISACODYL (EC) 5 MG TAB PO ×2 (10:05→22:13)
[2017-10-19] MEDS: HYDROXYUREA 500 MG CAP PO ×2 (10:07→22:18)
[2017-10-19] MEDS: POLYETHYLENE GLYCOL 17 GM PACKET PO ×2 (10:08→22:13)
[2017-10-19] MEDS: BACITRACIN/POLYMYXIN 28.35 GM OINT TOP ×2 (10:11→22:14)
[2017-10-19] MEDS: CLOTRIMAZOLE 1% 45 GM VAG CR VAG (21:00)
== END 2017-10-19 22:53 | disposition home or self-care (01) | DRG 871 ==
LOC: PP2 10-16 16:45 → E/R 09:19 → PP2 11:40
PROC: 30233N1 Transfusion of Nonautologous Red Blood Cells into Peripheral Vein, Percutaneous Approach (ICD-10-PCS; principal; 2017-10-11)
DX: A41.52 Sepsis due to Pseudomonas (principal); D57.00 Hb-SS disease with crisis, unspecified; N39.0 Urinary tract infection, site not specified; E83.111 Hemochromatosis due to repeated red blood cell transfusions; R59.0 Localized enlarged lymph nodes; N83.201 Unspecified ovarian cyst, right side; F43.21 Adjustment disorder with depressed mood; B95.2 Enterococcus as the cause of diseases classified elsewhere; B96.89 Other specified bacterial agents as the cause of diseases classified elsewhere; J02.8 Acute pharyngitis due to other specified organisms; B95.61 Methicillin susceptible Staphylococcus aureus infection as the cause of diseases classified elsewhere; Z86.711 Personal history of pulmonary embolism
CPT/HCPCS: 36415; 36430; 76700; 76830; 76856; 80048; 80053; 81001; 81025; 82728; 83690; 85014; 85018; 85025; 86308; 86850; 86900; 86901; 86920; 87040; 87070; 87081; 87086; 87880; 96374; 96375; 96376; 99285-25

== ENCOUNTER 2017-10-29 16:19 | Inpatient (IN) | payer OTHER ==
[2017-10-29] MEDS: CEFEPIME 1GM/50 ML (PMX) 50 ML IVPB (20:00)
[2017-10-29] MEDS: morphine 4 MG/ML VIAL IV ×2 (20:00→22:18)
[2017-10-29] MEDS: ONDANSETRON 4 MG INJ IV (20:00)
[2017-10-29] MEDS: SODIUM CHLORIDE 0.9% 1L BAG IV* (20:01)
[2017-10-29 20:25] LABS: ADD MAN DIFF? NO
[2017-10-29 20:27] LABS: WHITE BLOOD COUNT 15.6 10^3/ul (4.8-10.8)
[2017-10-29 20:27] LABS: BASOPHIL # 0.1 10^3/ul (0.0-0.1); BASOPHILS % 0.7 % (0.0-2.0); EOSINOPHILS # 0.2 10^3/ul (0.0-0.5); EOSINOPHILS % 1.3 % (0.0-7.0); HEMATOCRIT 26.3 % (37.0-47.0); HEMOGLOBIN 8.8 g/dl (12.0-16.0); LYMPHOCYTES # 2.2 10^3/ul (0.8-2.9); LYMPHOCYTES % 14.3 % (15.0-51.0); MEAN CORPUSCULAR HEMOGLOBIN 29.9 pg (29.0-33.0); MEAN CORPUSCULAR HGB CONC 33.5 g/dl (32.0-37.0); MEAN CORPUSCULAR VOLUME 89.5 fl (82.0-101.0); MEAN PLATELET VOLUME 10.3 fl (7.4-10.4); MONOCYTE # 1.2 10^3/ul (0.3-0.9); MONOCYTES % 7.5 % (0.0-11.0); NEUTROPHIL # 11.7 10^3/ul (1.6-7.5); NEUTROPHILS % 74.7 % (39.0-77.0); NUCLEATED RED BLOOD CELLS # 0.1 10^3/ul (0.0-0.0); NUCLEATED RED BLOOD CELLS% 0.8 /100WBC (0.0-0.0); PLATELET COUNT 391 10^3/UL (140-415); RED BLOOD COUNT 2.94 10^6/ul (4.20-5.40); RED CELL DISTRIBUTION WIDTH 19.8 % (11.5-14.5)
[2017-10-29 20:43] LABS: LACTIC ACID 0.7 mmol/L (0.5-2.0)
[2017-10-29] MEDS: VANCOMYCIN 1 GM (PMX) 250 ML IVPB (20:43)
[2017-10-29 20:44] LABS: ANION GAP 13 (8-16); BLOOD UREA NITROGEN 14 mg/dl (7-20); CALCIUM 8.9 mg/dl (8.4-10.2); CARBON DIOXIDE 24 mmol/L (21-31); CHLORIDE 106 mmol/L (97-110); CREATININE 0.77 mg/dl (0.44-1.00); GLUCOSE 93 mg/dl (70-220); POTASSIUM 4.4 mmol/L (3.5-5.1); SODIUM 139 mmol/L (135-144)
[2017-10-29 20:46] LABS: INR 1.06; PROTIME 13.9 Sec (11.9-14.9); PT RATIO 1.1
[2017-10-29 20:47] LABS: PARTIAL THROMBOPLASTIN TIME 41.7 Sec (25.0-35.0)
[2017-10-29 20:55] LABS: TROPONIN-I < 0.012 ng/ml (0.000-0.120)
[2017-10-29 22:01] LABS: ADD UMIC YES; UR ASCORBIC ACID NEGATIVE (NEGATIVE); UR BACTERIA MANY /HPF (NONE SEEN); UR BILIRUBIN (Dip) NEGATIVE (NEGATIVE); UR BLOOD (Dip) 1+ mg/dL (NEGATIVE); UR CLARITY SLIGHTLY CLOUDY (CLEAR); UR COLOR YELLOW (YELLOW); UR GLUCOSE (Dip) NEGATIVE (NEGATIVE); UR KETONES (Dip) NEGATIVE (NEGATIVE); UR LEUKOCYTE ESTERASE (Dip) NEGATIVE Leu/ul (NEGATIVE); UR NITRITE (Dip) POSITIVE (NEGATIVE); UR RBC 3 /HPF (0-5); UR SQUAMOUS EPITHELIAL CELL FEW /HPF (FEW); UR TOTAL PROTEIN (Dip) NEGATIVE (NEGATIVE); UR UROBILINOGEN (Dip) NEGATIVE (NEGATIVE); UR WBC 9 /HPF (0-5)
[2017-10-29] MEDS: morphine 2 MG INJ IV (22:24)
[2017-10-29] MEDS ORDERED: NACL 0.9% 3 ML SYG IV (22:30)
[2017-10-29 23:16] LABS: LACTIC ACID < 0.5 mmol/L (0.5-2.0)
[2017-10-30] MEDS: ACETAMINOPHEN 325 MG TAB PO ×3 (00:50→16:06)
[2017-10-30 01:17] LABS: LACTIC ACID 1.2 mmol/L (0.5-2.0)
[2017-10-30] MEDS: morphine 10 MG INJ IV ×4 (02:22→18:25)
[2017-10-30] MEDS: ONDANSETRON 4 MG TAB PO ×3 (02:23→14:26)
[2017-10-30] MEDS: DIPHENHYDRAMINE 50 MG INJ IV ×4 (02:23→18:24)
[2017-10-30] MEDS: SODIUM CHLORIDE 0.9% 1L BAG IV (02:32)
[2017-10-30 05:58] LABS: ADD MAN DIFF? NO
[2017-10-30 06:15] LABS: BASOPHIL # 0.1 10^3/ul (0.0-0.1); BASOPHILS % 0.7 % (0.0-2.0); EOSINOPHILS # 0.2 10^3/ul (0.0-0.5); EOSINOPHILS % 1.3 % (0.0-7.0); HEMATOCRIT 25.7 % (37.0-47.0); HEMOGLOBIN 8.3 g/dl (12.0-16.0); LYMPHOCYTES # 2.3 10^3/ul (0.8-2.9); LYMPHOCYTES % 13.8 % (15.0-51.0); MEAN CORPUSCULAR HGB CONC 32.3 g/dl (32.0-37.0); MEAN CORPUSCULAR VOLUME 92.8 fl (82.0-101.0); MONOCYTE # 0.9 10^3/ul (0.3-0.9); MONOCYTES % 5.2 % (0.0-11.0); NEUTROPHIL # 12.9 10^3/ul (1.6-7.5); NEUTROPHILS % 76.8 % (39.0-77.0); NUCLEATED RED BLOOD CELLS # 0.2 10^3/ul (0.0-0.0); PLATELET COUNT 319 10^3/UL (140-415); RED BLOOD COUNT 2.77 10^6/ul (4.20-5.40); RED CELL DISTRIBUTION WIDTH 20.4 % (11.5-14.5)
[2017-10-30 06:15] LABS: WHITE BLOOD COUNT 16.8 10^3/ul (4.8-10.8)
[2017-10-30 06:17] LABS: HEMOGLOBIN A1C 6.6 % (0-5.9)
[2017-10-30] MEDS: CEFEPIME 1GM/50 ML (PMX) 50 ML IVPB ×3 (06:19→21:37)
[2017-10-30 07:12] LABS: ALANINE AMINOTRANSFERASE 74 IU/L (13-69); ALBUMIN 3.4 g/dl (3.3-4.9); ALBUMIN/GLOBULIN RATIO 0.94; ALKALINE PHOSPHATASE 115 IU/L (42-121); ANION GAP 12 (8-16); ASPARTATE AMINO TRANSFERASE 73 IU/L (15-46); BILIRUBIN,INDIRECT 1.3 mg/dl (0-1.1); BILIRUBIN,TOTAL 1.3 mg/dl (0.2-1.3); BLOOD UREA NITROGEN 10 mg/dl (7-20); CALCIUM 7.9 mg/dl (8.4-10.2); CARBON DIOXIDE 23 mmol/L (21-31); CHLORIDE 109 mmol/L (97-110); CREATININE 0.83 mg/dl (0.44-1.00); GLUCOSE 106 mg/dl (70-220); SODIUM 140 mmol/L (135-144)
[2017-10-30] MEDS: FAMOTIDINE 20 MG INJ IV ×2 (08:37→21:37)
[2017-10-30] MEDS: ENOXAPARIN 30 MG/0.3 ML SYG SC (08:40)
[2017-10-30] MEDS: SOD CHLORIDE 0.9% 1,000 ML IV (12:10)
[2017-10-31] MEDS: DIPHENHYDRAMINE 50 MG INJ IV ×5 (03:31→19:51)
[2017-10-31] MEDS: morphine 10 MG INJ IV ×5 (03:35→19:52)
[2017-10-31] MEDS: SOD CHLORIDE 0.9% 1,000 ML IV ×3 (04:40→21:20)
[2017-10-31] MEDS: CEFEPIME 1GM/50 ML (PMX) 50 ML IVPB (06:18)
[2017-10-31 06:48] LABS: ADD MAN DIFF? NO
[2017-10-31 07:03] LABS: BASOPHIL # 0.1 10^3/ul (0.0-0.1); BASOPHILS % 0.7 % (0.0-2.0); EOSINOPHILS # 0.5 10^3/ul (0.0-0.5); EOSINOPHILS % 4.3 % (0.0-7.0); HEMATOCRIT 22.2 % (37.0-47.0); HEMOGLOBIN 7.3 g/dl (12.0-16.0); LYMPHOCYTES # 3.6 10^3/ul (0.8-2.9); MEAN CORPUSCULAR HEMOGLOBIN 29.6 pg (29.0-33.0); MEAN CORPUSCULAR HGB CONC 32.9 g/dl (32.0-37.0); MEAN CORPUSCULAR VOLUME 89.9 fl (82.0-101.0); MEAN PLATELET VOLUME 11.4 fl (7.4-10.4); MONOCYTE # 1.1 10^3/ul (0.3-0.9); MONOCYTES % 9.7 % (0.0-11.0); NEUTROPHIL # 5.6 10^3/ul (1.6-7.5); NEUTROPHILS % 51.1 % (39.0-77.0); NUCLEATED RED BLOOD CELLS # 0.1 10^3/ul (0.0-0.0); NUCLEATED RED BLOOD CELLS% 0.8 /100WBC (0.0-0.0); PLATELET COUNT 325 10^3/UL (140-415); RED BLOOD COUNT 2.47 10^6/ul (4.20-5.40); RED CELL DISTRIBUTION WIDTH 19.9 % (11.5-14.5)
[2017-10-31 07:26] LABS: ANION GAP 11 (8-16); BLOOD UREA NITROGEN 7 mg/dl (7-20); CALCIUM 7.9 mg/dl (8.4-10.2); CARBON DIOXIDE 24 mmol/L (21-31); CHLORIDE 109 mmol/L (97-110); CREATININE 0.74 mg/dl (0.44-1.00); GLUCOSE 136 mg/dl (70-220); SODIUM 140 mmol/L (135-144)
[2017-10-31] MEDS ORDERED: JADENU 360 MG PO (09:00)
[2017-10-31] MEDS: JADENU 360 MG PO (11:27)
[2017-10-31] MEDS ORDERED: NON-FORMULARY/PATIENT OWN MED (Deferasirox (Jadenu) 360 MG) PO (13:00)
[2017-10-31] MEDS ORDERED: ALBUTEROL HFA 8 GM INHALER INH (13:00)
[2017-10-31] MEDS ORDERED: DIPHENHYDRAMINE 25 MG CAP PO (13:00)
[2017-10-31] MEDS: HYDROCODONE/APAP (5/325) TAB PO ×3 (13:30→21:00)
[2017-10-31 13:40] LABS: IMMEDIATE SPIN CROSSMATCH 1 1
[2017-10-31] MEDS: ACETAMINOPHEN 325 MG TAB PO (14:01)
[2017-10-31] MEDS: POLYETHYLENE GLYCOL 17 GM PACKET PO ×2 (15:32→20:54)
[2017-10-31] MEDS: ONDANSETRON 4 MG TAB PO (19:04)
[2017-10-31] MEDS: HYDROXYUREA 500 MG CAP PO (20:54)
[2017-10-31] MEDS: APIXABAN 5 MG TABLET PO (20:54)
[2017-10-31] MEDS: MEROPENEM 1 GM/50ML(PMX) 50 ML IVPB (23:23)
[2017-11-01] MEDS: morphine 10 MG INJ IV ×6 (00:04→20:10)
[2017-11-01] MEDS: DIPHENHYDRAMINE 50 MG INJ IV ×6 (00:04→20:10)
[2017-11-01] MEDS: HYDROCODONE/APAP (5/325) TAB PO ×6 (01:00→21:00)
[2017-11-01] MEDS: SOD CHLORIDE 0.9% 1,000 ML IV (04:24)
[2017-11-01] MEDS: MEROPENEM 1 GM/50ML(PMX) 50 ML IVPB ×3 (06:09→22:18)
[2017-11-01] MEDS: APIXABAN 5 MG TABLET PO ×2 (08:09→20:10)
[2017-11-01] MEDS: POLYETHYLENE GLYCOL 17 GM PACKET PO ×2 (08:10→20:10)
[2017-11-01] MEDS: HYDROXYUREA 500 MG CAP PO ×2 (08:17→20:16)
[2017-11-01] MEDS: FOLIC ACID 1 MG TAB PO (09:58)
[2017-11-01] MEDS: JADENU 360 MG PO (12:03)
[2017-11-01] MEDS: ONDANSETRON 4 MG TAB PO (16:11)
[2017-11-02] MEDS: DIPHENHYDRAMINE 50 MG INJ IV ×6 (00:06→20:15)
[2017-11-02] MEDS: morphine 10 MG INJ IV ×6 (00:06→20:15)
[2017-11-02] MEDS: HYDROCODONE/APAP (5/325) TAB PO ×6 (01:00→20:29)
[2017-11-02] MEDS: MEROPENEM 1 GM/50ML(PMX) 50 ML IVPB ×3 (05:58→21:58)
[2017-11-02] MEDS: SOD CHLORIDE 0.9% 1,000 ML IV ×2 (06:28→16:17)
[2017-11-02] MEDS: APIXABAN 5 MG TABLET PO ×2 (09:09→20:15)
[2017-11-02] MEDS: FOLIC ACID 1 MG TAB PO (09:09)
[2017-11-02] MEDS: POLYETHYLENE GLYCOL 17 GM PACKET PO ×2 (09:09→20:15)
[2017-11-02] MEDS: HYDROXYUREA 500 MG CAP PO ×2 (09:12→20:28)
[2017-11-02 10:12] LABS: ADD MAN DIFF? NO
[2017-11-02 10:16] LABS: WHITE BLOOD COUNT 9.7 10^3/ul (4.8-10.8)
[2017-11-02 10:16] LABS: BASOPHIL # 0.1 10^3/ul (0.0-0.1); BASOPHILS % 0.9 % (0.0-2.0); EOSINOPHILS # 0.5 10^3/ul (0.0-0.5); EOSINOPHILS % 5.4 % (0.0-7.0); HEMATOCRIT 24.2 % (37.0-47.0); LYMPHOCYTES # 2.5 10^3/ul (0.8-2.9); LYMPHOCYTES % 25.8 % (15.0-51.0); MEAN CORPUSCULAR HEMOGLOBIN 29.2 pg (29.0-33.0); MEAN CORPUSCULAR HGB CONC 33.1 g/dl (32.0-37.0); MEAN CORPUSCULAR VOLUME 88.3 fl (82.0-101.0); MEAN PLATELET VOLUME 10.8 fl (7.4-10.4); MONOCYTES % 10.2 % (0.0-11.0); NEUTROPHIL # 5.5 10^3/ul (1.6-7.5); NEUTROPHILS % 56.7 % (39.0-77.0); NUCLEATED RED BLOOD CELLS # 0.2 10^3/ul (0.0-0.0); PLATELET COUNT 297 10^3/UL (140-415); RED BLOOD COUNT 2.74 10^6/ul (4.20-5.40); RED CELL DISTRIBUTION WIDTH 21.2 % (11.5-14.5)
[2017-11-02 10:52] LABS: ANION GAP 10 (8-16); BLOOD UREA NITROGEN 7 mg/dl (7-20); CALCIUM 8.3 mg/dl (8.4-10.2); CARBON DIOXIDE 28 mmol/L (21-31); CHLORIDE 107 mmol/L (97-110); CREATININE 0.66 mg/dl (0.44-1.00); GLUCOSE 117 mg/dl (70-220); POTASSIUM 4.5 mmol/L (3.5-5.1); SODIUM 140 mmol/L (135-144)
[2017-11-02] MEDS: JADENU 360 MG PO (14:13)
[2017-11-02] MEDS: FLUCONAZOLE 100 MG/50 ML (PMX) 50 ML IVPB (23:15)
[2017-11-03] MEDS: ONDANSETRON 4 MG INJ IV (00:11)
[2017-11-03] MEDS: DIPHENHYDRAMINE 50 MG INJ IV ×6 (00:12→21:14)
[2017-11-03] MEDS: morphine 10 MG INJ IV ×6 (00:12→21:15)
[2017-11-03] MEDS: HYDROCODONE/APAP (5/325) TAB PO ×6 (00:21→21:14)
[2017-11-03] MEDS: MEROPENEM 1 GM/50ML(PMX) 50 ML IVPB ×3 (05:30→21:30)
[2017-11-03] MEDS: APIXABAN 5 MG TABLET PO ×2 (07:54→21:14)
[2017-11-03] MEDS: POLYETHYLENE GLYCOL 17 GM PACKET PO ×2 (07:54→21:00)
[2017-11-03] MEDS: FOLIC ACID 1 MG TAB PO (07:54)
[2017-11-03] MEDS: HYDROXYUREA 500 MG CAP PO ×2 (08:16→21:16)
[2017-11-03] MEDS: JADENU 360 MG PO (12:00)
[2017-11-03] MEDS: SOD CHLORIDE 0.9% 1,000 ML IV ×2 (16:00→21:18)
[2017-11-03] MEDS: FLUCONAZOLE 100 MG/50 ML (PMX) 50 ML IVPB ×2 (22:00→23:00)
[2017-11-04] MEDS: HYDROCODONE/APAP (5/325) TAB PO ×6 (01:12→21:13)
[2017-11-04] MEDS: morphine 10 MG INJ IV ×6 (01:13→21:13)
[2017-11-04] MEDS: DIPHENHYDRAMINE 50 MG INJ IV ×6 (01:13→21:13)
[2017-11-04] MEDS: ONDANSETRON 4 MG INJ IV (01:20)
[2017-11-04] MEDS: MEROPENEM 1 GM/50ML(PMX) 50 ML IVPB ×3 (05:24→22:23)
[2017-11-04] MEDS: POLYETHYLENE GLYCOL 17 GM PACKET PO ×2 (08:27→21:00)
[2017-11-04] MEDS: APIXABAN 5 MG TABLET PO ×2 (08:27→21:20)
[2017-11-04] MEDS: FOLIC ACID 1 MG TAB PO (08:28)
[2017-11-04] MEDS: HYDROXYUREA 500 MG CAP PO ×2 (08:32→21:16)
[2017-11-04 08:44] LABS: ADD MAN DIFF? NO
[2017-11-04 08:47] LABS: BASOPHIL # 0.1 10^3/ul (0.0-0.1); BASOPHILS % 1.4 % (0.0-2.0); EOSINOPHILS # 0.7 10^3/ul (0.0-0.5); EOSINOPHILS % 8.6 % (0.0-7.0); HEMATOCRIT 24.7 % (37.0-47.0); HEMOGLOBIN 8.1 g/dl (12.0-16.0); LYMPHOCYTES # 3.7 10^3/ul (0.8-2.9); LYMPHOCYTES % 46.8 % (15.0-51.0); MEAN CORPUSCULAR HEMOGLOBIN 29.2 pg (29.0-33.0); MEAN CORPUSCULAR HGB CONC 32.8 g/dl (32.0-37.0); MEAN CORPUSCULAR VOLUME 89.2 fl (82.0-101.0); MEAN PLATELET VOLUME 10.2 fl (7.4-10.4); MONOCYTES % 12.4 % (0.0-11.0); NEUTROPHIL # 2.4 10^3/ul (1.6-7.5); NEUTROPHILS % 30.3 % (39.0-77.0); NUCLEATED RED BLOOD CELLS # 0.1 10^3/ul (0.0-0.0); PLATELET COUNT 340 10^3/UL (140-415); RED BLOOD COUNT 2.77 10^6/ul (4.20-5.40); RED CELL DISTRIBUTION WIDTH 21.1 % (11.5-14.5)
[2017-11-04 08:47] LABS: WHITE BLOOD COUNT 7.9 10^3/ul (4.8-10.8)
[2017-11-04 09:13] LABS: ANION GAP 14 (8-16); BLOOD UREA NITROGEN 9 mg/dl (7-20); CALCIUM 8.6 mg/dl (8.4-10.2); CARBON DIOXIDE 29 mmol/L (21-31); CHLORIDE 103 mmol/L (97-110); CREATININE 0.63 mg/dl (0.44-1.00); GLUCOSE 117 mg/dl (70-220); POTASSIUM 4.5 mmol/L (3.5-5.1); SODIUM 141 mmol/L (135-144)
[2017-11-04] MEDS: JADENU 360 MG PO (12:00)
[2017-11-04] MEDS: BISACODYL (EC) 5 MG TAB PO ×2 (13:36→22:22)
[2017-11-04] MEDS: SOD CHLORIDE 0.9% 1,000 ML IV (18:53)
[2017-11-04] MEDS: FLUCONAZOLE 100 MG/50 ML (PMX) 50 ML IVPB (23:32)
[2017-11-05] MEDS: HYDROCODONE/APAP (5/325) TAB PO ×6 (01:12→21:00)
[2017-11-05] MEDS: DIPHENHYDRAMINE 50 MG INJ IV ×6 (01:12→21:36)
[2017-11-05] MEDS: morphine 10 MG INJ IV ×6 (01:13→21:35)
[2017-11-05] MEDS: SOD CHLORIDE 0.9% 1,000 ML IV ×2 (01:20→17:34)
[2017-11-05] MEDS: MEROPENEM 1 GM/50ML(PMX) 50 ML IVPB ×3 (05:12→22:06)
[2017-11-05 08:54] LABS: ADD MAN DIFF? NO
[2017-11-05 09:00] LABS: WHITE BLOOD COUNT 10.3 10^3/ul (4.8-10.8)
[2017-11-05 09:00] LABS: BASOPHIL # 0.1 10^3/ul (0.0-0.1); BASOPHILS % 0.8 % (0.0-2.0); EOSINOPHILS # 0.5 10^3/ul (0.0-0.5); EOSINOPHILS % 4.5 % (0.0-7.0); HEMATOCRIT 26.2 % (37.0-47.0); HEMOGLOBIN 8.5 g/dl (12.0-16.0); LYMPHOCYTES # 3.2 10^3/ul (0.8-2.9); LYMPHOCYTES % 31.4 % (15.0-51.0); MEAN CORPUSCULAR HEMOGLOBIN 28.9 pg (29.0-33.0); MEAN CORPUSCULAR HGB CONC 32.4 g/dl (32.0-37.0); MEAN CORPUSCULAR VOLUME 89.1 fl (82.0-101.0); MEAN PLATELET VOLUME 10.3 fl (7.4-10.4); MONOCYTE # 0.9 10^3/ul (0.3-0.9); MONOCYTES % 8.3 % (0.0-11.0); NEUTROPHIL # 5.6 10^3/ul (1.6-7.5); NEUTROPHILS % 54.3 % (39.0-77.0); NUCLEATED RED BLOOD CELLS # 0.1 10^3/ul (0.0-0.0); PLATELET COUNT 328 10^3/UL (140-415); RED BLOOD COUNT 2.94 10^6/ul (4.20-5.40); RED CELL DISTRIBUTION WIDTH 20.3 % (11.5-14.5)
[2017-11-05] MEDS: POLYETHYLENE GLYCOL 17 GM PACKET PO ×2 (09:00→21:39)
[2017-11-05 09:21] LABS: ANION GAP 10 (8-16); BLOOD UREA NITROGEN 13 mg/dl (7-20); CALCIUM 8.9 mg/dl (8.4-10.2); CARBON DIOXIDE 31 mmol/L (21-31); CHLORIDE 103 mmol/L (97-110); GLUCOSE 103 mg/dl (70-220); POTASSIUM 4.8 mmol/L (3.5-5.1); SODIUM 139 mmol/L (135-144)
[2017-11-05] MEDS: HYDROXYUREA 500 MG CAP PO ×2 (09:34→21:38)
[2017-11-05] MEDS: APIXABAN 5 MG TABLET PO ×2 (09:35→21:36)
[2017-11-05] MEDS: FOLIC ACID 1 MG TAB PO (09:35)
[2017-11-05] MEDS: JADENU 360 MG PO ×2 (12:00→22:02)
[2017-11-05] MEDS: FLUCONAZOLE 100 MG/50 ML (PMX) 50 ML IVPB (21:36)
[2017-11-06] MEDS: HYDROCODONE/APAP (5/325) TAB PO ×6 (01:00→21:00)
[2017-11-06] MEDS: DIPHENHYDRAMINE 50 MG INJ IV ×6 (01:39→22:45)
[2017-11-06] MEDS: morphine 10 MG INJ IV ×6 (01:40→22:45)
[2017-11-06] MEDS: MEROPENEM 1 GM/50ML(PMX) 50 ML IVPB ×3 (05:40→22:39)
[2017-11-06] MEDS: POLYETHYLENE GLYCOL 17 GM PACKET PO ×2 (09:00→21:00)
[2017-11-06] MEDS: APIXABAN 5 MG TABLET PO ×2 (09:37→21:26)
[2017-11-06] MEDS: FOLIC ACID 1 MG TAB PO (09:37)
[2017-11-06] MEDS: SOD CHLORIDE 0.9% 1,000 ML IV (09:38)
[2017-11-06] MEDS: HYDROXYUREA 500 MG CAP PO ×2 (09:42→21:27)
[2017-11-06 09:52] LABS: ADD UMIC YES; UR ASCORBIC ACID NEGATIVE (NEGATIVE); UR BACTERIA FEW /HPF (NONE SEEN); UR BILIRUBIN (Dip) NEGATIVE (NEGATIVE); UR BLOOD (Dip) 2+ mg/dL (NEGATIVE); UR CLARITY CLEAR (CLEAR); UR COLOR YELLOW (YELLOW); UR GLUCOSE (Dip) NEGATIVE (NEGATIVE); UR KETONES (Dip) NEGATIVE (NEGATIVE); UR LEUKOCYTE ESTERASE (Dip) NEGATIVE Leu/ul (NEGATIVE); UR NITRITE (Dip) NEGATIVE (NEGATIVE); UR RBC 8 /HPF (0-5); UR SQUAMOUS EPITHELIAL CELL FEW /HPF (FEW); UR TOTAL PROTEIN (Dip) NEGATIVE (NEGATIVE); UR UROBILINOGEN (Dip) NEGATIVE (NEGATIVE); UR WBC 3 /HPF (0-5)
[2017-11-06] MEDS: JADENU 360 MG PO (12:00)
[2017-11-06] MEDS: ONDANSETRON 4 MG INJ IV (18:46)
[2017-11-06] MEDS: FLUCONAZOLE 100 MG/50 ML (PMX) 50 ML IVPB (21:28)
[2017-11-06] MEDS: BISACODYL (EC) 5 MG TAB PO (21:32)
[2017-11-07] MEDS: HYDROCODONE/APAP (5/325) TAB PO ×3 (01:00→09:00)
[2017-11-07] MEDS: DIPHENHYDRAMINE 50 MG INJ IV ×5 (02:45→20:07)
[2017-11-07] MEDS: morphine 10 MG INJ IV ×5 (02:45→20:07)
[2017-11-07] MEDS: MEROPENEM 1 GM/50ML(PMX) 50 ML IVPB ×2 (05:41→13:46)
[2017-11-07] MEDS: SOD CHLORIDE 0.9% 1,000 ML IV ×2 (05:45→20:00)
[2017-11-07] MEDS: POLYETHYLENE GLYCOL 17 GM PACKET PO ×2 (09:45→20:14)
[2017-11-07] MEDS: APIXABAN 5 MG TABLET PO ×2 (09:46→20:06)
[2017-11-07] MEDS: FOLIC ACID 1 MG TAB PO (09:46)
[2017-11-07] MEDS: HYDROXYUREA 500 MG CAP PO ×2 (10:06→20:15)
[2017-11-07] MEDS: JADENU 360 MG PO (12:00)
[2017-11-07 12:13] LABS: ADD MAN DIFF? NO
[2017-11-07 12:19] LABS: BASOPHIL # 0.1 10^3/ul (0.0-0.1); BASOPHILS % 1.1 % (0.0-2.0); EOSINOPHILS # 0.5 10^3/ul (0.0-0.5); EOSINOPHILS % 4.8 % (0.0-7.0); HEMATOCRIT 25.1 % (37.0-47.0); HEMOGLOBIN 8.3 g/dl (12.0-16.0); MEAN CORPUSCULAR HEMOGLOBIN 28.8 pg (29.0-33.0); MEAN CORPUSCULAR HGB CONC 33.1 g/dl (32.0-37.0); MEAN CORPUSCULAR VOLUME 87.2 fl (82.0-101.0); MEAN PLATELET VOLUME 10.8 fl (7.4-10.4); MONOCYTE # 0.6 10^3/ul (0.3-0.9); MONOCYTES % 5.7 % (0.0-11.0); NEUTROPHIL # 4.5 10^3/ul (1.6-7.5); NEUTROPHILS % 46.6 % (39.0-77.0); NUCLEATED RED BLOOD CELLS # 0.1 10^3/ul (0.0-0.0); NUCLEATED RED BLOOD CELLS% 0.6 /100WBC (0.0-0.0); PLATELET COUNT 333 10^3/UL (140-415); RED BLOOD COUNT 2.88 10^6/ul (4.20-5.40); RED CELL DISTRIBUTION WIDTH 19.9 % (11.5-14.5)
[2017-11-07 12:19] LABS: WHITE BLOOD COUNT 9.7 10^3/ul (4.8-10.8)
[2017-11-07 12:49] LABS: ANION GAP 14 (8-16); BLOOD UREA NITROGEN 14 mg/dl (7-20); CALCIUM 8.6 mg/dl (8.4-10.2); CARBON DIOXIDE 27 mmol/L (21-31); CHLORIDE 104 mmol/L (97-110); GLUCOSE 115 mg/dl (70-220); POTASSIUM 5.2 mmol/L (3.5-5.1); SODIUM 140 mmol/L (135-144)
[2017-11-07] MEDS: HEPARIN (100 UNITS/ML) 5 ML SYG CATHETER (20:14)
[2017-11-07] MEDS: FLUCONAZOLE 100 MG/50 ML (PMX) 50 ML IVPB (20:17)
[2017-11-07] MEDS: BISACODYL (EC) 5 MG TAB PO (20:23)
== END 2017-11-07 21:55 | disposition home or self-care (01) | DRG 871 ==
LOC: E/R 16:19 → 2NE 22:33
PROC: 30233N1 Transfusion of Nonautologous Red Blood Cells into Peripheral Vein, Percutaneous Approach (ICD-10-PCS; principal; 2017-10-31)
DX: A41.9 Sepsis, unspecified organism (principal); D57.00 Hb-SS disease with crisis, unspecified; N39.0 Urinary tract infection, site not specified; Z86.711 Personal history of pulmonary embolism; G89.4 Chronic pain syndrome; E83.111 Hemochromatosis due to repeated red blood cell transfusions
CPT/HCPCS: 36415; 36430; 71045; 74018; 80048; 80053; 81001; 81025; 83036; 83605; 84484; 85025; 85610; 85730; 86850; 86900; 86901; 86920; 87040; 87081; 87086; 93005; 96374; 96375; 96376; 99291-25

== ENCOUNTER 2017-11-15 05:59 | Emergency (ER) | payer OTHER ==
[2017-11-15] MEDS ORDERED: HYDROmorphONE 1 MG/ML SYG IV (06:12)
[2017-11-15] MEDS: DIPHENHYDRAMINE 50 MG INJ IV (06:32)
[2017-11-15] MEDS: ONDANSETRON 4 MG INJ IV ×3 (06:32→09:08)
[2017-11-15] MEDS: morphine 10 MG INJ IV (06:32)
[2017-11-15 07:02] LABS: ABNORMAL IP MESSAGE 1; HEMATOCRIT 25.9 % (37.0-47.0); HEMOGLOBIN 8.5 g/dl (12.0-16.0); MEAN CORPUSCULAR HEMOGLOBIN 28.1 pg (29.0-33.0); MEAN CORPUSCULAR HGB CONC 32.8 g/dl (32.0-37.0); MEAN CORPUSCULAR VOLUME 85.8 fl (82.0-101.0); MEAN PLATELET VOLUME 11.4 fl (7.4-10.4); NUCLEATED RED BLOOD CELLS% 0.7 /100WBC (0.0-0.0); PLATELET COUNT 368 10^3/UL (140-415); RED BLOOD COUNT 3.02 10^6/ul (4.20-5.40); RED CELL DISTRIBUTION WIDTH 20.6 % (11.5-14.5)
[2017-11-15 07:02] LABS: WHITE BLOOD COUNT 13.3 10^3/ul (4.8-10.8)
[2017-11-15 07:07] LABS: ADD MAN DIFF? YES; POSITIVE DIFF @See below
[2017-11-15 07:20] LABS: ALANINE AMINOTRANSFERASE 213 IU/L (13-69); ALBUMIN 4.2 g/dl (3.3-4.9); ALBUMIN/GLOBULIN RATIO 0.97; ALKALINE PHOSPHATASE 175 IU/L (42-121); AMYLASE 107 U/L (11-123); ANION GAP 13 (8-16); ASPARTATE AMINO TRANSFERASE 188 IU/L (15-46); BILIRUBIN,INDIRECT 1.5 mg/dl (0-1.1); BILIRUBIN,TOTAL 1.5 mg/dl (0.2-1.3); BLOOD UREA NITROGEN 12 mg/dl (7-20); CALCIUM 8.8 mg/dl (8.4-10.2); CARBON DIOXIDE 25 mmol/L (21-31); CHLORIDE 109 mmol/L (97-110); GLUCOSE 107 mg/dl (70-220); LIPASE 138 U/L (23-300); POTASSIUM 4.2 mmol/L (3.5-5.1); SODIUM 143 mmol/L (135-144); TOTAL PROTEIN 8.5 g/dl (6.1-8.1)
[2017-11-15] MEDS: SOD CHLORIDE 0.9% 1,000 ML IV (07:28)
[2017-11-15 07:34] LABS: ADD UMIC NO; UR ASCORBIC ACID NEGATIVE (NEGATIVE); UR BACTERIA FEW /HPF (NONE SEEN); UR BILIRUBIN (Dip) NEGATIVE (NEGATIVE); UR BLOOD (Dip) NEGATIVE (NEGATIVE); UR CLARITY SLIGHTLY CLOUDY (CLEAR); UR COLOR YELLOW (YELLOW); UR GLUCOSE (Dip) NEGATIVE (NEGATIVE); UR KETONES (Dip) NEGATIVE (NEGATIVE); UR LEUKOCYTE ESTERASE (Dip) NEGATIVE Leu/ul (NEGATIVE); UR MUCUS FEW /HPF (NONE SEEN); UR NITRITE (Dip) NEGATIVE (NEGATIVE); UR RBC 0 /HPF (0-5); UR SPECIFIC GRAVITY (Dip) 1.012 (1.003-1.030); UR SQUAMOUS EPITHELIAL CELL FEW /HPF (FEW); UR TOTAL PROTEIN (Dip) NEGATIVE (NEGATIVE); UR UROBILINOGEN (Dip) NEGATIVE (NEGATIVE); UR WBC 4 /HPF (0-5)
[2017-11-15 07:38] LABS: INR 1.03; PROTIME 13.6 Sec (11.9-14.9); PT RATIO 1.1
[2017-11-15 07:39] LABS: PARTIAL THROMBOPLASTIN TIME 45.6 Sec (25.0-35.0)
[2017-11-15] MEDS: morphine 4 MG/ML VIAL IV ×2 (07:42→09:08)
[2017-11-15 07:51] LABS: ANISOCYTOSIS 1+ (0-0); BAND NEUTROPHILS #M 0.1 10^3/ul (0.0-0.6); BAND NEUTROPHILS % (M) 1 % (0-4); BASOPHIL #M 0.2 10^3/ul (0.0-0.0); BASOPHILS % (M) 2 % (0-2); BURR CELLS 1+ (0-0); EOSINOPHILS % (M) 2 % (0-7); ERYTHROBLAST% (NRBC) (M) 1 % (0-0); GIANT THROMBO% (M) 3 % (0-0); LYMPHOCYTES % (M) 38 % (15-51); MONOCYTE #M 1.4 10^3/ul (0.3-0.9); MONOCYTES % (M) 11 % (0-11); MYELOCYTES #M 0.1 10^3/ul (0.0-0.0); MYELOCYTES % (M) 1 % (0-0); PLATELET ESTIMATE NORMAL; POLYCHROMASIA 2+ (0-0); SEGMENTED NEUTROPHILS (M) % 45 % (39-77); SICKLE CELL 2+ (0-0); SMUDGE%M 8 % (0-0); TARGET CELLS 2+ (0-0)
== END 2017-11-15 10:15 | disposition home or self-care (01) ==
LOC: E/R 05:59
DX: D57.219 Sickle-cell/Hb-C disease with crisis, unspecified (principal); J45.909 Unspecified asthma, uncomplicated
CPT/HCPCS: 71045; 80053; 81001; 81003; 82150; 83690; 84703; 85025; 85610; 85730; 86850; 86900; 86901; 87040; 87086; 93005; 96374; 96375; 96376; 99285-25

== ENCOUNTER 2017-11-18 09:37 | Emergency (ER) | payer OTHER ==
[2017-11-18] MEDS: OXYCODONE/ACETAMINOPHEN (5/325) TAB PO ×2 (11:23→11:24)
[2017-11-18] MEDS: HYDROCODONE/APAP (5/325) TAB PO (11:41)
[2017-11-18 12:07] LABS: ADD MAN DIFF? NO
[2017-11-18 12:13] LABS: WHITE BLOOD COUNT 13.6 10^3/ul (4.8-10.8)
[2017-11-18 12:13] LABS: BASOPHIL # 0.1 10^3/ul (0.0-0.1); BASOPHILS % 0.9 % (0.0-2.0); EOSINOPHILS # 0.4 10^3/ul (0.0-0.5); EOSINOPHILS % 3.1 % (0.0-7.0); HEMATOCRIT 24.4 % (37.0-47.0); HEMOGLOBIN 8.1 g/dl (12.0-16.0); LYMPHOCYTES # 4.7 10^3/ul (0.8-2.9); LYMPHOCYTES % 34.7 % (15.0-51.0); MEAN CORPUSCULAR HEMOGLOBIN 28.5 pg (29.0-33.0); MEAN CORPUSCULAR HGB CONC 33.2 g/dl (32.0-37.0); MEAN CORPUSCULAR VOLUME 85.9 fl (82.0-101.0); MEAN PLATELET VOLUME 10.3 fl (7.4-10.4); MONOCYTE # 1.5 10^3/ul (0.3-0.9); MONOCYTES % 10.8 % (0.0-11.0); NEUTROPHIL # 6.8 10^3/ul (1.6-7.5); NEUTROPHILS % 50.1 % (39.0-77.0); NUCLEATED RED BLOOD CELLS # 0.1 10^3/ul (0.0-0.0); NUCLEATED RED BLOOD CELLS% 0.5 /100WBC (0.0-0.0); PLATELET COUNT 412 10^3/UL (140-415); RED BLOOD COUNT 2.84 10^6/ul (4.20-5.40); RED CELL DISTRIBUTION WIDTH 20.7 % (11.5-14.5)
[2017-11-18 13:24] LABS: RETICULOCYTE COUNT # 0.186 X10^6 (0.020-0.110); RETICULOCYTE COUNT % 6.6 % (0.5-1.5)
[2017-11-18 13:24] LABS: RETICULOCYTE RBC 2.84
== END 2017-11-18 13:54 | disposition home or self-care (01) ==
LOC: E/R 09:37
DX: D64.9 Anemia, unspecified (principal); J45.909 Unspecified asthma, uncomplicated
CPT/HCPCS: 85025; 85045; 99283

== ENCOUNTER 2017-12-26 14:08 | Inpatient (IN) | payer OTHER ==
[2017-12-26] MEDS: ONDANSETRON 4 MG INJ IV (18:16)
[2017-12-26] MEDS: SODIUM CHLORIDE 0.9% 1L BAG IV* (18:16)
[2017-12-26] MEDS: morphine 10 MG INJ IV (18:16)
[2017-12-26 18:23] LABS: WHITE BLOOD COUNT 17.8 10^3/ul (4.8-10.8)
[2017-12-26 18:23] LABS: ABNORMAL IP MESSAGE 1; HEMATOCRIT 22.8 % (37.0-47.0); HEMOGLOBIN 7.6 g/dl (12.0-16.0); MEAN CORPUSCULAR HEMOGLOBIN 29.7 pg (29.0-33.0); MEAN CORPUSCULAR HGB CONC 33.3 g/dl (32.0-37.0); MEAN CORPUSCULAR VOLUME 89.1 fl (82.0-101.0); MEAN PLATELET VOLUME 10.6 fl (7.4-10.4); PLATELET COUNT 400 10^3/UL (140-415); RED BLOOD COUNT 2.56 10^6/ul (4.20-5.40); RED CELL DISTRIBUTION WIDTH 20.2 % (11.5-14.5); RETICULOCYTE COUNT # 0.277 X10^6 (0.020-0.110); RETICULOCYTE COUNT % 10.8 % (0.5-1.5); RETICULOCYTE RBC 2.56
[2017-12-26 18:27] LABS: ADD MAN DIFF? YES; POSITIVE DIFF @See below
[2017-12-26] MEDS: ACETAMINOPHEN 500 MG TAB PO (18:28)
[2017-12-26 18:42] LABS: ALANINE AMINOTRANSFERASE 71 IU/L (13-69); ALBUMIN 4.2 g/dl (3.3-4.9); ALBUMIN/GLOBULIN RATIO 0.95; ALKALINE PHOSPHATASE 126 IU/L (42-121); ANION GAP 9 (5-13); ASPARTATE AMINO TRANSFERASE 67 IU/L (15-46); BLOOD UREA NITROGEN 10 mg/dl (7-20); CALCIUM 9.1 mg/dl (8.4-10.2); CARBON DIOXIDE 26 mmol/L (21-31); CHLORIDE 104 mmol/L (97-110); CREATININE 0.78 mg/dl (0.44-1.00); Estimated GFR > 60 mL/min (>60); GLUCOSE 98 mg/dl (70-220); LACTATE DEHYDROGENASE 515 IU/L (313-618); POTASSIUM 4.1 mmol/L (3.5-5.1); SODIUM 139 mmol/L (135-144); TOTAL PROTEIN 8.6 g/dl (6.1-8.1)
[2017-12-26 18:43] LABS: INR 1.07; PT RATIO 1.1
[2017-12-26] MEDS: AZTREONAM 1 GM/NS (PMX) 50 ML IVPB (18:50)
[2017-12-26 18:51] LABS: ANISOCYTOSIS 1+ (0-0); BAND NEUTROPHILS #M 0.1 10^3/ul (0.0-0.6); BAND NEUTROPHILS % (M) 1 % (0-4); BASOPHIL #M 0.1 10^3/ul (0.0-0.0); BASOPHILS % (M) 1 % (0-2); BURR CELLS 1+ (0-0); EOSINOPHILS % (M) 2 % (0-7); HYPOCHROMASIA 1+ (0-0); LYMPHOCYTES #M 7.4 10^3/ul (0.8-2.9); LYMPHOCYTES % (M) 42 % (15-51); MONOCYTE #M 0.3 10^3/ul (0.3-0.9); MONOCYTES % (M) 2 % (0-11); PLATELET ESTIMATE NORMAL; POIKILOCYTOSIS 1+ (0-0); POLYCHROMASIA 1+ (0-0); REACTIVE LYMPHOCYTES #M 0.1 10^3/ul (0.0-0.0); REACTIVE LYMPHOCYTES% (M) 1 % (0-0); SEG NEUT #M 9.1 10^3/ul (1.6-7.5); SEGMENTED NEUTROPHILS (M) % 51 % (39-77); SICKLE CELL 1+ (0-0); SMUDGE%M 4 % (0-0); TARGET CELLS 1+ (0-0)
[2017-12-26 18:52] LABS: TROPONIN-I 0.012 ng/ml (0.000-0.120)
[2017-12-26] MEDS ORDERED: ACETAMINOPHEN 325 MG TAB PO (20:00)
[2017-12-26 20:09] LABS: ADD UMIC NO; UR ASCORBIC ACID NEGATIVE (NEGATIVE); UR BILIRUBIN (Dip) NEGATIVE (NEGATIVE); UR BLOOD (Dip) NEGATIVE (NEGATIVE); UR CLARITY CLEAR (CLEAR); UR COLOR YELLOW (YELLOW); UR GLUCOSE (Dip) NEGATIVE (NEGATIVE); UR KETONES (Dip) NEGATIVE (NEGATIVE); UR LEUKOCYTE ESTERASE (Dip) NEGATIVE Leu/ul (NEGATIVE); UR NITRITE (Dip) NEGATIVE (NEGATIVE); UR SPECIFIC GRAVITY (Dip) 1.011 (1.003-1.030); UR TOTAL PROTEIN (Dip) NEGATIVE (NEGATIVE); UR UROBILINOGEN (Dip) NEGATIVE (NEGATIVE)
[2017-12-26] MEDS: VANCOMYCIN 1 GM (PMX) 250 ML IVPB (20:15)
[2017-12-26] MEDS ORDERED: morphine 4 MG/ML VIAL IV (22:00)
[2017-12-26] MEDS ORDERED: VANCOMYCIN IV PER PHARMACY XX (22:00)
[2017-12-26] MEDS ORDERED: DIPHENHYDRAMINE 25 MG CAP PO (22:00)
[2017-12-26 22:08] LABS: LACTIC ACID 0.7 mmol/L (0.5-2.0)
[2017-12-27] MEDS: morphine 2 MG INJ IV (00:03)
[2017-12-27] MEDS: DIPHENHYDRAMINE 50 MG INJ IV ×6 (00:03→23:57)
[2017-12-27] MEDS: DEXTROSE 5%-0.45% NACL 1,000 ML IV ×4 (00:12→22:30)
[2017-12-27] MEDS: ONDANSETRON 4 MG INJ IV (00:12)
[2017-12-27] MEDS: MEROPENEM 1 GM/50ML(PMX) 50 ML IVPB ×4 (01:00→22:07)
[2017-12-27] MEDS: LINEZOLID 600 MG/D5W (PMX) 300 ML IVPB ×2 (01:41→13:50)
[2017-12-27] MEDS: morphine 10 MG INJ IV ×6 (03:53→23:57)
[2017-12-27 07:33] LABS: ADD MAN DIFF? NO; BASOPHIL # 0.1 10^3/ul (0.0-0.1); BASOPHILS % 0.6 % (0.0-2.0); EOSINOPHILS # 0.4 10^3/ul (0.0-0.5); EOSINOPHILS % 3.3 % (0.0-7.0); HEMATOCRIT 21.7 % (37.0-47.0); HEMOGLOBIN 7.2 g/dl (12.0-16.0); LYMPHOCYTES % 22.1 % (15.0-51.0); MEAN CORPUSCULAR HEMOGLOBIN 29.8 pg (29.0-33.0); MEAN CORPUSCULAR HGB CONC 33.2 g/dl (32.0-37.0); MEAN CORPUSCULAR VOLUME 89.7 fl (82.0-101.0); MEAN PLATELET VOLUME 10.7 fl (7.4-10.4); MONOCYTE # 0.9 10^3/ul (0.3-0.9); MONOCYTES % 6.7 % (0.0-11.0); NEUTROPHIL # 8.9 10^3/ul (1.6-7.5); NEUTROPHILS % 65.6 % (39.0-77.0); NUCLEATED RED BLOOD CELLS # 0.2 10^3/ul (0.0-0.0); NUCLEATED RED BLOOD CELLS% 1.3 /100WBC (0.0-0.0); PLATELET COUNT 332 10^3/UL (140-415); RED BLOOD COUNT 2.42 10^6/ul (4.20-5.40); RED CELL DISTRIBUTION WIDTH 19.8 % (11.5-14.5)
[2017-12-27 07:33] LABS: WHITE BLOOD COUNT 13.5 10^3/ul (4.8-10.8)
[2017-12-27 08:17] LABS: LACTIC ACID 0.6 mmol/L (0.5-2.0)
[2017-12-27 09:04] LABS: ANION GAP 11 (5-13); BLOOD UREA NITROGEN 10 mg/dl (7-20); CALCIUM 8.3 mg/dl (8.4-10.2); CARBON DIOXIDE 24 mmol/L (21-31); CHLORIDE 102 mmol/L (97-110); CREATININE 0.78 mg/dl (0.44-1.00); Estimated GFR > 60 mL/min (>60); GLUCOSE 98 mg/dl (70-220); SODIUM 137 mmol/L (135-144)
[2017-12-27 10:08] LABS: ANISOCYTOSIS 1+ (0-0); BASOPHIL #M 0.1 10^3/ul (0.0-0.0); BASOPHILS % (M) 1 % (0-2); EOSINOPHILS % (M) 4 % (0-7); ERYTHROBLAST% (NRBC) (M) 2 % (0-0); GIANT THROMBO% (M) 3 % (0-0); HYPOCHROMASIA 2+ (0-0); LYMPHOCYTES #M 3.1 10^3/ul (0.8-2.9); LYMPHOCYTES % (M) 23 % (15-51); METAMYELOCYTES #M 0.1 10^3/ul (0.0-0.0); METAMYELOCYTES %M 1 % (0-0); MONOCYTE #M 0.2 10^3/ul (0.3-0.9); MONOCYTES % (M) 2 % (0-11); MYELOCYTES #M 0.1 10^3/ul (0.0-0.0); MYELOCYTES % (M) 1 % (0-0); PLATELET ESTIMATE NORMAL; POLYCHROMASIA 1+ (0-0); SEGMENTED NEUTROPHILS (M) % 68 % (39-77); SICKLE CELL 1+ (0-0); TARGET CELLS 1+ (0-0)
[2017-12-27] MEDS: HYDROXYUREA 500 MG CAP PO ×2 (10:53→20:09)
[2017-12-27] MEDS: FOLIC ACID 1 MG TAB PO (10:54)
[2017-12-27] MEDS: APIXABAN 5 MG TABLET PO (10:54)
[2017-12-27] MEDS: DEFERASIROX 360 MG PO (13:49)
[2017-12-27 16:11] LABS: HAPTOGLOBIN <8 mg/dL (43-212)
[2017-12-27] MEDS: ACETAMINOPHEN 325 MG TAB PO ×2 (16:19→23:25)
[2017-12-27] MEDS: SALINE 0.65% 45 ML NAS SPRAY NASAL (21:00)
[2017-12-28] MEDS: LINEZOLID 600 MG/D5W (PMX) 300 ML IVPB ×2 (00:40→13:08)
[2017-12-28] MEDS: MEROPENEM 1 GM/50ML(PMX) 50 ML IVPB ×3 (05:27→21:43)
[2017-12-28] MEDS: DIPHENHYDRAMINE 50 MG INJ IV ×5 (05:28→21:26)
[2017-12-28] MEDS: morphine 10 MG INJ IV ×5 (05:28→21:25)
[2017-12-28 07:05] LABS: ADD MAN DIFF? NO
[2017-12-28 07:06] LABS: WHITE BLOOD COUNT 12.2 10^3/ul (4.8-10.8)
[2017-12-28 07:06] LABS: BASOPHIL # 0.1 10^3/ul (0.0-0.1); BASOPHILS % 0.6 % (0.0-2.0); EOSINOPHILS # 0.3 10^3/ul (0.0-0.5); EOSINOPHILS % 2.2 % (0.0-7.0); HEMATOCRIT 21.3 % (37.0-47.0); LYMPHOCYTES # 2.5 10^3/ul (0.8-2.9); LYMPHOCYTES % 20.9 % (15.0-51.0); MEAN CORPUSCULAR HGB CONC 32.9 g/dl (32.0-37.0); MEAN CORPUSCULAR VOLUME 88.4 fl (82.0-101.0); MONOCYTES % 7.9 % (0.0-11.0); NEUTROPHIL # 7.9 10^3/ul (1.6-7.5); NEUTROPHILS % 64.7 % (39.0-77.0); NUCLEATED RED BLOOD CELLS # 0.2 10^3/ul (0.0-0.0); NUCLEATED RED BLOOD CELLS% 1.8 /100WBC (0.0-0.0); PLATELET COUNT 322 10^3/UL (140-415); RED BLOOD COUNT 2.41 10^6/ul (4.20-5.40); RED CELL DISTRIBUTION WIDTH 19.5 % (11.5-14.5)
[2017-12-28 07:25] LABS: ANION GAP 11 (5-13); BLOOD UREA NITROGEN 9 mg/dl (7-20); CALCIUM 8.8 mg/dl (8.4-10.2); CARBON DIOXIDE 25 mmol/L (21-31); CHLORIDE 102 mmol/L (97-110); CREATININE 0.91 mg/dl (0.44-1.00); Estimated GFR > 60 mL/min (>60); GLUCOSE 112 mg/dl (70-220); POTASSIUM 4.1 mmol/L (3.5-5.1); SODIUM 138 mmol/L (135-144)
[2017-12-28] MEDS: FOLIC ACID 1 MG TAB PO (08:25)
[2017-12-28] MEDS: ACETAMINOPHEN 325 MG TAB PO (08:25)
[2017-12-28] MEDS: HYDROXYUREA 500 MG CAP PO ×2 (08:26→21:15)
[2017-12-28] MEDS: SALINE 0.65% 45 ML NAS SPRAY NASAL ×2 (09:00→21:00)
[2017-12-28] MEDS: DEXTROSE 5%-0.45% NACL 1,000 ML IV ×2 (11:00→23:30)
[2017-12-28] MEDS: DEFERASIROX 360 MG PO (12:43)
[2017-12-28] MEDS: FUROSEMIDE 20 MG INJ IV (14:42)
[2017-12-28 17:47] LABS: IMMEDIATE SPIN CROSSMATCH 1 3
[2017-12-28] MEDS: DOCUSATE SODIUM 250 MG CAP PO (21:14)
[2017-12-28] MEDS: ONDANSETRON 4 MG INJ IV (21:43)
[2017-12-29] MEDS: DIPHENHYDRAMINE 50 MG INJ IV ×6 (01:27→21:31)
[2017-12-29] MEDS: morphine 10 MG INJ IV ×6 (01:27→21:31)
[2017-12-29] MEDS: MEROPENEM 1 GM/50ML(PMX) 50 ML IVPB ×3 (05:28→21:31)
[2017-12-29] MEDS: SALINE 0.65% 45 ML NAS SPRAY NASAL ×2 (09:00→21:43)
[2017-12-29] MEDS: DOCUSATE SODIUM 250 MG CAP PO (09:00)
[2017-12-29] MEDS: FUROSEMIDE 20 MG INJ IV (09:46)
[2017-12-29] MEDS: HYDROXYUREA 500 MG CAP PO ×2 (09:50→21:38)
[2017-12-29] MEDS: FOLIC ACID 1 MG TAB PO (09:50)
[2017-12-29 10:35] LABS: WHITE BLOOD COUNT 10.6 10^3/ul (4.8-10.8)
[2017-12-29 10:35] LABS: HEMATOCRIT 26.6 % (37.0-47.0); MEAN CORPUSCULAR HEMOGLOBIN 29.3 pg (29.0-33.0); MEAN CORPUSCULAR HGB CONC 33.8 g/dl (32.0-37.0); MEAN CORPUSCULAR VOLUME 86.6 fl (82.0-101.0); MEAN PLATELET VOLUME 10.5 fl (7.4-10.4); NUCLEATED RED BLOOD CELLS% 2.2 /100WBC (0.0-0.0); PLATELET COUNT 297 10^3/UL (140-415); RED BLOOD COUNT 3.07 10^6/ul (4.20-5.40); RED CELL DISTRIBUTION WIDTH 18.8 % (11.5-14.5)
[2017-12-29 10:38] LABS: ADD MAN DIFF? YES
[2017-12-29 11:02] LABS: ANISOCYTOSIS 1+ (0-0); BAND NEUTROPHILS #M 0.4 10^3/ul (0.0-0.6); BAND NEUTROPHILS % (M) 4 % (0-4); EOSINOPHILS % (M) 8 % (0-7); ERYTHROBLAST% (NRBC) (M) 5 % (0-0); GIANT THROMBO% (M) 1 % (0-0); LYMPHOCYTES #M 2.1 10^3/ul (0.8-2.9); LYMPHOCYTES % (M) 20 % (15-51); METAMYELOCYTES #M 0.1 10^3/ul (0.0-0.0); METAMYELOCYTES %M 1 % (0-0); MONOCYTE #M 0.3 10^3/ul (0.3-0.9); MONOCYTES % (M) 3 % (0-11); PLATELET ESTIMATE NORMAL; POIKILOCYTOSIS 1+ (0-0); POLYCHROMASIA 2+ (0-0); REACTIVE LYMPHOCYTES #M 0.4 10^3/ul (0.0-0.0); REACTIVE LYMPHOCYTES% (M) 4 % (0-0); SEG NEUT #M 6.4 10^3/ul (1.6-7.5); SEGMENTED NEUTROPHILS (M) % 60 % (39-77); SICKLE CELL 1+ (0-0); SMUDGE%M 13 % (0-0); TARGET CELLS 2+ (0-0)
[2017-12-29] MEDS: DEFERASIROX 360 MG PO ×2 (12:00→21:36)
[2017-12-29] MEDS: DEXTROSE 5%-0.45% NACL 1,000 ML IV (13:36)
[2017-12-29] MEDS: BISACODYL (EC) 5 MG TAB PO (15:22)
[2017-12-29] MEDS: DOCUSATE SODIUM 100 MG CAP PO ×2 (15:22→21:32)
[2017-12-30] MEDS: DEXTROSE 5%-0.45% NACL 1,000 ML IV ×2 (00:30→13:00)
[2017-12-30] MEDS: DIPHENHYDRAMINE 50 MG INJ IV ×6 (01:34→21:27)
[2017-12-30] MEDS: ZOLPIDEM 5 MG TAB PO (01:34)
[2017-12-30] MEDS: morphine 10 MG INJ IV ×6 (01:35→21:26)
[2017-12-30] MEDS: MEROPENEM 1 GM/50ML(PMX) 50 ML IVPB ×3 (05:33→21:23)
[2017-12-30] MEDS: FOLIC ACID 1 MG TAB PO (09:15)
[2017-12-30] MEDS: DOCUSATE SODIUM 100 MG CAP PO ×2 (09:16→21:27)
[2017-12-30] MEDS: BISACODYL (EC) 5 MG TAB PO (09:16)
[2017-12-30] MEDS: SALINE 0.65% 45 ML NAS SPRAY NASAL (09:16)
[2017-12-30] MEDS: FUROSEMIDE 20 MG INJ IV (09:16)
[2017-12-30] MEDS: HYDROXYUREA 500 MG CAP PO ×2 (09:19→21:28)
[2017-12-30 09:39] LABS: ADD MAN DIFF? NO
[2017-12-30 09:43] LABS: WHITE BLOOD COUNT 9.4 10^3/ul (4.8-10.8)
[2017-12-30 09:43] LABS: BASOPHIL # 0.1 10^3/ul (0.0-0.1); BASOPHILS % 1.1 % (0.0-2.0); EOSINOPHILS # 0.6 10^3/ul (0.0-0.5); EOSINOPHILS % 6.7 % (0.0-7.0); HEMATOCRIT 25.8 % (37.0-47.0); HEMOGLOBIN 8.5 g/dl (12.0-16.0); LYMPHOCYTES # 3.6 10^3/ul (0.8-2.9); MEAN CORPUSCULAR HEMOGLOBIN 29.2 pg (29.0-33.0); MEAN CORPUSCULAR HGB CONC 32.9 g/dl (32.0-37.0); MEAN CORPUSCULAR VOLUME 88.7 fl (82.0-101.0); MEAN PLATELET VOLUME 10.5 fl (7.4-10.4); MONOCYTE # 1.1 10^3/ul (0.3-0.9); MONOCYTES % 11.3 % (0.0-11.0); NEUTROPHIL # 3.9 10^3/ul (1.6-7.5); NEUTROPHILS % 41.7 % (39.0-77.0); NUCLEATED RED BLOOD CELLS # 0.2 10^3/ul (0.0-0.0); NUCLEATED RED BLOOD CELLS% 1.6 /100WBC (0.0-0.0); PLATELET COUNT 304 10^3/UL (140-415); RED BLOOD COUNT 2.91 10^6/ul (4.20-5.40); RED CELL DISTRIBUTION WIDTH 19.2 % (11.5-14.5)
[2017-12-30] MEDS: DEFERASIROX 360 MG PO (21:24)
[2017-12-31] MEDS: DIPHENHYDRAMINE 50 MG INJ IV ×6 (01:22→21:14)
[2017-12-31] MEDS: ONDANSETRON 4 MG INJ IV (01:22)
[2017-12-31] MEDS: morphine 10 MG INJ IV ×6 (01:23→21:14)
[2017-12-31] MEDS: DEXTROSE 5%-0.45% NACL 1,000 ML IV ×3 (01:30→14:00)
[2017-12-31] MEDS: ZOLPIDEM 5 MG TAB PO (02:09)
[2017-12-31] MEDS: MEROPENEM 1 GM/50ML(PMX) 50 ML IVPB ×3 (05:15→22:22)
[2017-12-31] MEDS: DOCUSATE SODIUM 100 MG CAP PO ×2 (09:21→21:13)
[2017-12-31] MEDS: FOLIC ACID 1 MG TAB PO (09:21)
[2017-12-31] MEDS: BISACODYL (EC) 5 MG TAB PO (09:21)
[2017-12-31] MEDS: FUROSEMIDE 20 MG INJ IV (09:22)
[2017-12-31] MEDS: HYDROXYUREA 500 MG CAP PO ×2 (09:22→21:13)
[2017-12-31 12:37] LABS: ADD MAN DIFF? NO
[2017-12-31 12:41] LABS: BASOPHIL # 0.1 10^3/ul (0.0-0.1); BASOPHILS % 0.8 % (0.0-2.0); EOSINOPHILS # 0.4 10^3/ul (0.0-0.5); EOSINOPHILS % 4.6 % (0.0-7.0); HEMATOCRIT 26.9 % (37.0-47.0); HEMOGLOBIN 8.9 g/dl (12.0-16.0); LYMPHOCYTES # 3.2 10^3/ul (0.8-2.9); MEAN CORPUSCULAR HEMOGLOBIN 29.2 pg (29.0-33.0); MEAN CORPUSCULAR HGB CONC 33.1 g/dl (32.0-37.0); MEAN CORPUSCULAR VOLUME 88.2 fl (82.0-101.0); MEAN PLATELET VOLUME 10.4 fl (7.4-10.4); MONOCYTE # 0.9 10^3/ul (0.3-0.9); MONOCYTES % 9.7 % (0.0-11.0); NEUTROPHIL # 4.5 10^3/ul (1.6-7.5); NEUTROPHILS % 49.1 % (39.0-77.0); NUCLEATED RED BLOOD CELLS # 0.1 10^3/ul (0.0-0.0); NUCLEATED RED BLOOD CELLS% 1.1 /100WBC (0.0-0.0); PLATELET COUNT 279 10^3/UL (140-415); RED BLOOD COUNT 3.05 10^6/ul (4.20-5.40); RED CELL DISTRIBUTION WIDTH 18.9 % (11.5-14.5)
[2017-12-31 12:41] LABS: WHITE BLOOD COUNT 9.1 10^3/ul (4.8-10.8)
[2017-12-31 13:20] LABS: ANION GAP 8 (5-13); BLOOD UREA NITROGEN 12 mg/dl (7-20); CALCIUM 8.6 mg/dl (8.4-10.2); CARBON DIOXIDE 30 mmol/L (21-31); CHLORIDE 102 mmol/L (97-110); Estimated GFR > 60 mL/min (>60); GLUCOSE 98 mg/dl (70-220); POTASSIUM 4.3 mmol/L (3.5-5.1); SODIUM 140 mmol/L (135-144)
[2017-12-31] MEDS: DEFERASIROX 360 MG PO (21:13)
[2018-01-01] MEDS: morphine 10 MG INJ IV ×5 (01:17→20:31)
[2018-01-01] MEDS: DIPHENHYDRAMINE 50 MG INJ IV ×5 (01:17→20:31)
[2018-01-01] MEDS: DEXTROSE 5%-0.45% NACL 1,000 ML IV ×2 (06:39→15:00)
[2018-01-01] MEDS: DOCUSATE SODIUM 100 MG CAP PO ×2 (10:46→20:32)
[2018-01-01] MEDS: BISACODYL (EC) 5 MG TAB PO (10:46)
[2018-01-01] MEDS: FUROSEMIDE 20 MG INJ IV (10:47)
[2018-01-01] MEDS: HYDROXYUREA 500 MG CAP PO ×2 (10:47→20:33)
[2018-01-01] MEDS: FOLIC ACID 1 MG TAB PO (10:47)
[2018-01-01] MEDS: CIPROFLOXACIN 400MG/D5W 200 ML IVPB ×2 (10:55→20:31)
[2018-01-01 11:48] LABS: ADD MAN DIFF? NO
[2018-01-01 11:52] LABS: BASOPHIL # 0.1 10^3/ul (0.0-0.1); BASOPHILS % 0.8 % (0.0-2.0); EOSINOPHILS # 0.6 10^3/ul (0.0-0.5); EOSINOPHILS % 6.8 % (0.0-7.0); HEMATOCRIT 27.4 % (37.0-47.0); HEMOGLOBIN 8.9 g/dl (12.0-16.0); LYMPHOCYTES # 4.3 10^3/ul (0.8-2.9); LYMPHOCYTES % 47.4 % (15.0-51.0); MEAN CORPUSCULAR HEMOGLOBIN 28.9 pg (29.0-33.0); MEAN CORPUSCULAR HGB CONC 32.5 g/dl (32.0-37.0); MEAN PLATELET VOLUME 10.4 fl (7.4-10.4); MONOCYTE # 1.2 10^3/ul (0.3-0.9); MONOCYTES % 13.8 % (0.0-11.0); NEUTROPHIL # 2.8 10^3/ul (1.6-7.5); NEUTROPHILS % 30.6 % (39.0-77.0); NUCLEATED RED BLOOD CELLS # 0.1 10^3/ul (0.0-0.0); NUCLEATED RED BLOOD CELLS% 0.6 /100WBC (0.0-0.0); PLATELET COUNT 300 10^3/UL (140-415); RED BLOOD COUNT 3.08 10^6/ul (4.20-5.40); RED CELL DISTRIBUTION WIDTH 19.1 % (11.5-14.5)
[2018-01-01 12:14] LABS: ANION GAP 9 (5-13); BLOOD UREA NITROGEN 9 mg/dl (7-20); CALCIUM 8.7 mg/dl (8.4-10.2); CARBON DIOXIDE 28 mmol/L (21-31); CHLORIDE 104 mmol/L (97-110); CREATININE 0.59 mg/dl (0.44-1.00); Estimated GFR > 60 mL/min (>60); GLUCOSE 99 mg/dl (70-220); POTASSIUM 4.7 mmol/L (3.5-5.1); SODIUM 141 mmol/L (135-144)
[2018-01-01 12:28] LABS: PROCALCITONIN 1.47 ng/mL (<0.10)
[2018-01-01] MEDS: DEFERASIROX 360 MG PO (20:31)
[2018-01-02] MEDS: DIPHENHYDRAMINE 50 MG INJ IV ×6 (00:32→22:58)
[2018-01-02] MEDS: morphine 10 MG INJ IV ×6 (00:32→22:58)
[2018-01-02] MEDS: DEXTROSE 5%-0.45% NACL 1,000 ML IV ×3 (03:30→16:00)
[2018-01-02 08:23] LABS: ADD MAN DIFF? NO
[2018-01-02 08:29] LABS: WHITE BLOOD COUNT 7.1 10^3/ul (4.8-10.8)
[2018-01-02 08:29] LABS: BASOPHIL # 0.1 10^3/ul (0.0-0.1); BASOPHILS % 0.7 % (0.0-2.0); EOSINOPHILS # 0.3 10^3/ul (0.0-0.5); EOSINOPHILS % 3.7 % (0.0-7.0); HEMATOCRIT 25.1 % (37.0-47.0); HEMOGLOBIN 8.2 g/dl (12.0-16.0); LYMPHOCYTES # 2.8 10^3/ul (0.8-2.9); LYMPHOCYTES % 38.8 % (15.0-51.0); MEAN CORPUSCULAR HEMOGLOBIN 29.3 pg (29.0-33.0); MEAN CORPUSCULAR HGB CONC 32.7 g/dl (32.0-37.0); MEAN CORPUSCULAR VOLUME 89.6 fl (82.0-101.0); MEAN PLATELET VOLUME 10.9 fl (7.4-10.4); MONOCYTE # 0.5 10^3/ul (0.3-0.9); MONOCYTES % 6.5 % (0.0-11.0); NEUTROPHIL # 3.5 10^3/ul (1.6-7.5); NEUTROPHILS % 49.5 % (39.0-77.0); NUCLEATED RED BLOOD CELLS # 0.1 10^3/ul (0.0-0.0); PLATELET COUNT 236 10^3/UL (140-415); RED CELL DISTRIBUTION WIDTH 18.8 % (11.5-14.5)
[2018-01-02 08:47] LABS: ANION GAP 10 (5-13); BLOOD UREA NITROGEN 10 mg/dl (7-20); CALCIUM 8.6 mg/dl (8.4-10.2); CARBON DIOXIDE 28 mmol/L (21-31); CHLORIDE 102 mmol/L (97-110); CREATININE 0.64 mg/dl (0.44-1.00); Estimated GFR > 60 mL/min (>60); GLUCOSE 97 mg/dl (70-220); POTASSIUM 4.2 mmol/L (3.5-5.1); SODIUM 140 mmol/L (135-144)
[2018-01-02] MEDS: BISACODYL (EC) 5 MG TAB PO (09:35)
[2018-01-02] MEDS: HYDROXYUREA 500 MG CAP PO ×2 (09:36→22:09)
[2018-01-02] MEDS: DOCUSATE SODIUM 100 MG CAP PO ×2 (09:36→22:03)
[2018-01-02] MEDS: FOLIC ACID 1 MG TAB PO (09:36)
[2018-01-02] MEDS: FUROSEMIDE 20 MG INJ IV (09:37)
[2018-01-02] MEDS: CIPROFLOXACIN 400MG/D5W 200 ML IVPB ×2 (10:18→22:06)
[2018-01-02] MEDS: DEFERASIROX 360 MG PO (22:06)
[2018-01-03] MEDS: DIPHENHYDRAMINE 50 MG INJ IV ×5 (02:59→20:33)
[2018-01-03] MEDS: morphine 10 MG INJ IV ×5 (02:59→20:33)
[2018-01-03] MEDS: DEXTROSE 5%-0.45% NACL 1,000 ML IV ×3 (04:15→17:42)
[2018-01-03] MEDS: ONDANSETRON 4 MG INJ IV ×2 (07:06→20:33)
[2018-01-03] MEDS: CIPROFLOXACIN 400MG/D5W 200 ML IVPB ×2 (09:35→20:33)
[2018-01-03 14:38] LABS: HEMATOCRIT 27.1 % (37.0-47.0); HEMOGLOBIN 8.7 g/dl (12.0-16.0); MEAN CORPUSCULAR HEMOGLOBIN 28.5 pg (29.0-33.0); MEAN CORPUSCULAR HGB CONC 32.1 g/dl (32.0-37.0); MEAN CORPUSCULAR VOLUME 88.9 fl (82.0-101.0); MEAN PLATELET VOLUME 10.6 fl (7.4-10.4); NUCLEATED RED BLOOD CELLS% 0.5 /100WBC (0.0-0.0); PLATELET COUNT 285 10^3/UL (140-415); RED BLOOD COUNT 3.05 10^6/ul (4.20-5.40); RED CELL DISTRIBUTION WIDTH 18.8 % (11.5-14.5)
[2018-01-03] MEDS: FUROSEMIDE 20 MG INJ IV (14:42)
[2018-01-03] MEDS: DOCUSATE SODIUM 100 MG CAP PO ×2 (14:43→20:32)
[2018-01-03] MEDS: FOLIC ACID 1 MG TAB PO (14:43)
[2018-01-03] MEDS: BISACODYL (EC) 5 MG TAB PO ×2 (14:43→23:22)
[2018-01-03] MEDS: HYDROXYUREA 500 MG CAP PO ×2 (14:44→20:44)
[2018-01-03 14:56] LABS: ADD MAN DIFF? YES
[2018-01-03 14:59] LABS: ANION GAP 8 (5-13); BLOOD UREA NITROGEN 12 mg/dl (7-20); CALCIUM 8.9 mg/dl (8.4-10.2); CARBON DIOXIDE 29 mmol/L (21-31); CHLORIDE 100 mmol/L (97-110); Estimated GFR > 60 mL/min (>60); GLUCOSE 94 mg/dl (70-220); POTASSIUM 4.8 mmol/L (3.5-5.1); SODIUM 137 mmol/L (135-144)
[2018-01-03 15:28] LABS: ANISOCYTOSIS 1+ (0-0); BAND NEUTROPHILS #M 0.1 10^3/ul (0.0-0.6); BAND NEUTROPHILS % (M) 1 % (0-4); EOSINOPHILS % (M) 7 % (0-7); GIANT THROMBO% (M) 1 % (0-0); HYPOCHROMASIA 1+ (0-0); LYMPHOCYTES #M 4.6 10^3/ul (0.8-2.9); LYMPHOCYTES % (M) 42 % (15-51); MONOCYTE #M 0.6 10^3/ul (0.3-0.9); MONOCYTES % (M) 6 % (0-11); PLATELET ESTIMATE NORMAL; POLYCHROMASIA 1+ (0-0); SEG NEUT #M 4.7 10^3/ul (1.6-7.5); SEGMENTED NEUTROPHILS (M) % 43 % (39-77); SICKLE CELL 1+ (0-0); SMUDGE%M 11 % (0-0)
[2018-01-03] MEDS: DEFERASIROX 360 MG PO (20:32)
[2018-01-04] MEDS: DIPHENHYDRAMINE 50 MG INJ IV ×6 (00:25→20:45)
[2018-01-04] MEDS: morphine 10 MG INJ IV ×6 (00:28→20:46)
[2018-01-04] MEDS: DEXTROSE 5%-0.45% NACL 1,000 ML IV ×2 (05:32→18:00)
[2018-01-04] MEDS: FUROSEMIDE 20 MG INJ IV (08:48)
[2018-01-04] MEDS: BISACODYL (EC) 5 MG TAB PO (08:50)
[2018-01-04] MEDS: FOLIC ACID 1 MG TAB PO (08:50)
[2018-01-04] MEDS: CIPROFLOXACIN 400MG/D5W 200 ML IVPB ×2 (08:50→20:50)
[2018-01-04] MEDS: DOCUSATE SODIUM 100 MG CAP PO ×2 (08:50→21:00)
[2018-01-04] MEDS: HYDROXYUREA 500 MG CAP PO ×2 (09:02→20:56)
[2018-01-04 10:33] LABS: ADD UMIC NO; UR ASCORBIC ACID NEGATIVE (NEGATIVE); UR BILIRUBIN (Dip) NEGATIVE (NEGATIVE); UR BLOOD (Dip) NEGATIVE (NEGATIVE); UR CLARITY CLEAR (CLEAR); UR COLOR YELLOW (YELLOW); UR GLUCOSE (Dip) NEGATIVE (NEGATIVE); UR KETONES (Dip) NEGATIVE (NEGATIVE); UR LEUKOCYTE ESTERASE (Dip) NEGATIVE Leu/ul (NEGATIVE); UR NITRITE (Dip) NEGATIVE (NEGATIVE); UR SPECIFIC GRAVITY (Dip) 1.008 (1.003-1.030); UR TOTAL PROTEIN (Dip) NEGATIVE (NEGATIVE); UR UROBILINOGEN (Dip) NEGATIVE (NEGATIVE)
[2018-01-04 11:43] LABS: ADD MAN DIFF? NO
[2018-01-04 11:46] LABS: WHITE BLOOD COUNT 10.1 10^3/ul (4.8-10.8)
[2018-01-04 11:46] LABS: BASOPHIL # 0.1 10^3/ul (0.0-0.1); EOSINOPHILS # 0.4 10^3/ul (0.0-0.5); EOSINOPHILS % 4.4 % (0.0-7.0); HEMATOCRIT 25.9 % (37.0-47.0); HEMOGLOBIN 8.4 g/dl (12.0-16.0); LYMPHOCYTES # 2.8 10^3/ul (0.8-2.9); LYMPHOCYTES % 28.2 % (15.0-51.0); MEAN CORPUSCULAR HEMOGLOBIN 28.6 pg (29.0-33.0); MEAN CORPUSCULAR HGB CONC 32.4 g/dl (32.0-37.0); MEAN CORPUSCULAR VOLUME 88.1 fl (82.0-101.0); MEAN PLATELET VOLUME 10.5 fl (7.4-10.4); MONOCYTE # 0.9 10^3/ul (0.3-0.9); MONOCYTES % 9.4 % (0.0-11.0); NEUTROPHIL # 5.7 10^3/ul (1.6-7.5); NEUTROPHILS % 56.3 % (39.0-77.0); NUCLEATED RED BLOOD CELLS # 0.1 10^3/ul (0.0-0.0); NUCLEATED RED BLOOD CELLS% 0.5 /100WBC (0.0-0.0); PLATELET COUNT 298 10^3/UL (140-415); RED BLOOD COUNT 2.94 10^6/ul (4.20-5.40); RED CELL DISTRIBUTION WIDTH 18.8 % (11.5-14.5)
[2018-01-04 12:07] LABS: ANION GAP 9 (5-13); BLOOD UREA NITROGEN 17 mg/dl (7-20); CARBON DIOXIDE 27 mmol/L (21-31); CHLORIDE 99 mmol/L (97-110); CREATININE 0.87 mg/dl (0.44-1.00); Estimated GFR > 60 mL/min (>60); GLUCOSE 122 mg/dl (70-220); POTASSIUM 4.4 mmol/L (3.5-5.1); SODIUM 135 mmol/L (135-144)
[2018-01-04] MEDS: ONDANSETRON 4 MG INJ IV (20:59)
[2018-01-04] MEDS: APIXABAN 5 MG TABLET PO (21:00)
[2018-01-04] MEDS: ACETAMINOPHEN 325 MG TAB PO (22:15)
[2018-01-04] MEDS: DEFERASIROX 360 MG PO (22:21)
[2018-01-05] MEDS ORDERED: MEROPENEM 1 GM/50ML(PMX) 50 ML IVPB (00:30)
[2018-01-05] MEDS ORDERED: VANCOMYCIN IV PER PHARMACY XX (00:30)
[2018-01-05] MEDS: morphine 10 MG INJ IV ×6 (00:47→20:53)
[2018-01-05] MEDS: DIPHENHYDRAMINE 50 MG INJ IV ×6 (00:47→20:53)
[2018-01-05 01:04] LABS: ADD MAN DIFF? NO
[2018-01-05 01:06] LABS: WHITE BLOOD COUNT 17.4 10^3/ul (4.8-10.8)
[2018-01-05 01:06] LABS: ABNORMAL IP MESSAGE 1; BASOPHIL # 0.1 10^3/ul (0.0-0.1); BASOPHILS % 0.6 % (0.0-2.0); EOSINOPHILS # 0.4 10^3/ul (0.0-0.5); EOSINOPHILS % 2.1 % (0.0-7.0); HEMATOCRIT 27.7 % (37.0-47.0); HEMOGLOBIN 9.1 g/dl (12.0-16.0); LYMPHOCYTES # 2.1 10^3/ul (0.8-2.9); LYMPHOCYTES % 11.9 % (15.0-51.0); MEAN CORPUSCULAR HEMOGLOBIN 28.8 pg (29.0-33.0); MEAN CORPUSCULAR HGB CONC 32.9 g/dl (32.0-37.0); MEAN CORPUSCULAR VOLUME 87.7 fl (82.0-101.0); MEAN PLATELET VOLUME 10.3 fl (7.4-10.4); MONOCYTE # 1.5 10^3/ul (0.3-0.9); MONOCYTES % 8.8 % (0.0-11.0); NEUTROPHIL # 13.2 10^3/ul (1.6-7.5); NEUTROPHILS % 75.7 % (39.0-77.0); NUCLEATED RED BLOOD CELLS # 0.1 10^3/ul (0.0-0.0); NUCLEATED RED BLOOD CELLS% 0.3 /100WBC (0.0-0.0); PLATELET COUNT 323 10^3/UL (140-415); RED BLOOD COUNT 3.16 10^6/ul (4.20-5.40); RED CELL DISTRIBUTION WIDTH 18.4 % (11.5-14.5)
[2018-01-05] MEDS: CASPOFUNGIN 70 MG in NS 250 ML IVPB (01:17)
[2018-01-05 01:28] LABS: ANION GAP 15 (5-13); BLOOD UREA NITROGEN 17 mg/dl (7-20); CALCIUM 9.2 mg/dl (8.4-10.2); CARBON DIOXIDE 23 mmol/L (21-31); CHLORIDE 98 mmol/L (97-110); CREATININE 0.93 mg/dl (0.44-1.00); Estimated GFR > 60 mL/min (>60); GLUCOSE 104 mg/dl (70-220); POTASSIUM 4.9 mmol/L (3.5-5.1); SODIUM 136 mmol/L (135-144)
[2018-01-05 01:28] LABS: LACTIC ACID 1.5 mmol/L (0.5-2.0)
[2018-01-05 01:29] LABS: POSITIVE DIFF @See below
[2018-01-05] MEDS: MEROPENEM 1 GM/50ML(PMX) 50 ML IVPB ×3 (03:59→16:55)
[2018-01-05] MEDS: VANCOMYCIN 1.5 GM in SOD CHLORIDE 0.9% 250 ML IVPB (04:52)
[2018-01-05] MEDS: DEXTROSE 5%-0.45% NACL 1,000 ML IV ×3 (06:28→18:15)
[2018-01-05] MEDS: DOCUSATE SODIUM 100 MG CAP PO ×3 (08:43→20:52)
[2018-01-05] MEDS: FOLIC ACID 1 MG TAB PO (08:43)
[2018-01-05] MEDS: FUROSEMIDE 20 MG INJ IV (08:43)
[2018-01-05] MEDS: APIXABAN 5 MG TABLET PO (08:43)
[2018-01-05] MEDS: BISACODYL (EC) 5 MG TAB PO (08:43)
[2018-01-05] MEDS: CIPROFLOXACIN 400MG/D5W 200 ML IVPB ×2 (08:45→23:22)
[2018-01-05] MEDS: HYDROXYUREA 500 MG CAP PO ×2 (09:58→20:59)
[2018-01-05] MEDS: VANCOMYCIN 750 MG in SOD CHLORIDE 0.9% 150 ML IVPB ×2 (12:51→21:05)
[2018-01-05] MEDS ORDERED: VANCOMYCIN 1 GM 250 ML IVPB (15:00)
[2018-01-05] MEDS: DEFERASIROX 360 MG PO (21:59)
[2018-01-06] MEDS: DIPHENHYDRAMINE 50 MG INJ IV ×6 (00:51→21:11)
[2018-01-06] MEDS: morphine 10 MG INJ IV ×6 (00:53→21:12)
[2018-01-06] MEDS: MEROPENEM 1 GM/50ML(PMX) 50 ML IVPB ×3 (01:21→17:20)
[2018-01-06] MEDS: CASPOFUNGIN 50 MG in SOD CHLORIDE 0.9% 250 ML IVPB (02:06)
[2018-01-06 04:09] LABS: ADD MAN DIFF? NO
[2018-01-06 04:27] LABS: BASOPHIL # 0.1 10^3/ul (0.0-0.1); BASOPHILS % 0.8 % (0.0-2.0); EOSINOPHILS # 0.5 10^3/ul (0.0-0.5); EOSINOPHILS % 4.9 % (0.0-7.0); HEMATOCRIT 23.4 % (37.0-47.0); HEMOGLOBIN 7.6 g/dl (12.0-16.0); LYMPHOCYTES # 3.3 10^3/ul (0.8-2.9); LYMPHOCYTES % 33.8 % (15.0-51.0); MEAN CORPUSCULAR HGB CONC 32.5 g/dl (32.0-37.0); MEAN CORPUSCULAR VOLUME 89.3 fl (82.0-101.0); MEAN PLATELET VOLUME 10.8 fl (7.4-10.4); MONOCYTE # 1.2 10^3/ul (0.3-0.9); MONOCYTES % 12.1 % (0.0-11.0); NEUTROPHIL # 4.6 10^3/ul (1.6-7.5); NEUTROPHILS % 47.4 % (39.0-77.0); NUCLEATED RED BLOOD CELLS # 0.1 10^3/ul (0.0-0.0); NUCLEATED RED BLOOD CELLS% 0.6 /100WBC (0.0-0.0); PLATELET COUNT 290 10^3/UL (140-415); RED BLOOD COUNT 2.62 10^6/ul (4.20-5.40); RED CELL DISTRIBUTION WIDTH 18.8 % (11.5-14.5)
[2018-01-06 04:27] LABS: WHITE BLOOD COUNT 9.8 10^3/ul (4.8-10.8)
[2018-01-06 04:28] LABS: ANION GAP 5 (5-13); BLOOD UREA NITROGEN 12 mg/dl (7-20); CALCIUM 8.4 mg/dl (8.4-10.2); CARBON DIOXIDE 27 mmol/L (21-31); CHLORIDE 106 mmol/L (97-110); CREATININE 0.77 mg/dl (0.44-1.00); Estimated GFR > 60 mL/min (>60); GLUCOSE 117 mg/dl (70-220); POTASSIUM 3.9 mmol/L (3.5-5.1); SODIUM 138 mmol/L (135-144)
[2018-01-06 04:37] LABS: VANCOMYCIN,TROUGH 14.5 ug/ml (10.0-20.0)
[2018-01-06] MEDS: VANCOMYCIN 750 MG in SOD CHLORIDE 0.9% 150 ML IVPB ×3 (05:46→21:10)
[2018-01-06] MEDS: DEXTROSE 5%-0.45% NACL 1,000 ML IV (07:30)
[2018-01-06] MEDS: FOLIC ACID 1 MG TAB PO (09:00)
[2018-01-06] MEDS: BISACODYL (EC) 5 MG TAB PO (09:00)
[2018-01-06] MEDS: DOCUSATE SODIUM 100 MG CAP PO ×2 (09:01→21:11)
[2018-01-06] MEDS: HYDROXYUREA 500 MG CAP PO ×2 (09:01→21:14)
[2018-01-06] MEDS: CIPROFLOXACIN 400MG/D5W 200 ML IVPB (09:02)
[2018-01-06] MEDS ORDERED: CASPOFUNGIN 50 MG in SOD CHLORIDE 0.9% 250 ML IVPB (09:21)
[2018-01-06] MEDS: FUROSEMIDE 20 MG INJ IV (10:21)
[2018-01-06] MEDS: SOD CHLORIDE 0.45% 1,000 ML IV (17:16)
[2018-01-06] MEDS: DEFERASIROX 360 MG PO (21:11)
[2018-01-07] MEDS ORDERED: CASPOFUNGIN 50 MG in SOD CHLORIDE 0.9% 250 ML IVPB (01:00)
[2018-01-07] MEDS: DIPHENHYDRAMINE 50 MG INJ IV ×6 (01:05→21:16)
[2018-01-07] MEDS: morphine 10 MG INJ IV ×6 (01:07→21:17)
[2018-01-07] MEDS: MEROPENEM 1 GM/50ML(PMX) 50 ML IVPB ×3 (01:20→17:13)
[2018-01-07] MEDS: CASPOFUNGIN 50 MG in SOD CHLORIDE 0.9% 250 ML IVPB (02:04)
[2018-01-07] MEDS: VANCOMYCIN 750 MG in SOD CHLORIDE 0.9% 150 ML IVPB ×3 (05:09→21:00)
[2018-01-07] MEDS: ONDANSETRON 4 MG INJ IV (05:19)
[2018-01-07 09:08] LABS: ADD MAN DIFF? NO
[2018-01-07] MEDS: BISACODYL (EC) 5 MG TAB PO (09:10)
[2018-01-07] MEDS: DOCUSATE SODIUM 100 MG CAP PO ×2 (09:10→21:16)
[2018-01-07] MEDS: FOLIC ACID 1 MG TAB PO (09:10)
[2018-01-07] MEDS: FUROSEMIDE 20 MG INJ IV (09:11)
[2018-01-07] MEDS: HYDROXYUREA 500 MG CAP PO ×2 (09:14→21:21)
[2018-01-07 09:17] LABS: BASOPHIL # 0.1 10^3/ul (0.0-0.1); BASOPHILS % 1.1 % (0.0-2.0); EOSINOPHILS # 0.7 10^3/ul (0.0-0.5); EOSINOPHILS % 6.9 % (0.0-7.0); HEMOGLOBIN 7.5 g/dl (12.0-16.0); LYMPHOCYTES # 4.2 10^3/ul (0.8-2.9); LYMPHOCYTES % 44.1 % (15.0-51.0); MEAN CORPUSCULAR HEMOGLOBIN 28.8 pg (29.0-33.0); MEAN CORPUSCULAR HGB CONC 32.6 g/dl (32.0-37.0); MEAN CORPUSCULAR VOLUME 88.5 fl (82.0-101.0); MEAN PLATELET VOLUME 10.9 fl (7.4-10.4); MONOCYTE # 1.4 10^3/ul (0.3-0.9); NEUTROPHIL # 3.1 10^3/ul (1.6-7.5); NEUTROPHILS % 32.1 % (39.0-77.0); NUCLEATED RED BLOOD CELLS # 0.1 10^3/ul (0.0-0.0); NUCLEATED RED BLOOD CELLS% 0.6 /100WBC (0.0-0.0); PLATELET COUNT 306 10^3/UL (140-415); RED CELL DISTRIBUTION WIDTH 19.1 % (11.5-14.5)
[2018-01-07 09:17] LABS: WHITE BLOOD COUNT 9.6 10^3/ul (4.8-10.8)
[2018-01-07 09:37] LABS: ANION GAP 8 (5-13); BLOOD UREA NITROGEN 13 mg/dl (7-20); CALCIUM 8.7 mg/dl (8.4-10.2); CARBON DIOXIDE 27 mmol/L (21-31); CHLORIDE 105 mmol/L (97-110); Estimated GFR > 60 mL/min (>60); GLUCOSE 96 mg/dl (70-220); POTASSIUM 4.3 mmol/L (3.5-5.1); SODIUM 140 mmol/L (135-144)
[2018-01-07] MEDS: DEFERASIROX 360 MG PO (21:25)
[2018-01-07 21:46] LABS: IMMEDIATE SPIN CROSSMATCH 1 1
[2018-01-07] MEDS: SOD CHLORIDE 0.9% 250 ML IV* (21:50)
[2018-01-08] MEDS: morphine 10 MG INJ IV ×6 (01:09→21:18)
[2018-01-08] MEDS: DIPHENHYDRAMINE 50 MG INJ IV ×6 (01:09→21:18)
[2018-01-08] MEDS: MEROPENEM 1 GM/50ML(PMX) 50 ML IVPB ×3 (01:29→17:19)
[2018-01-08 08:21] LABS: ADD MAN DIFF? NO
[2018-01-08 08:24] LABS: WHITE BLOOD COUNT 11.5 10^3/ul (4.8-10.8)
[2018-01-08 08:24] LABS: ABNORMAL IP MESSAGE 1; BASOPHIL # 0.2 10^3/ul (0.0-0.1); BASOPHILS % 1.3 % (0.0-2.0); EOSINOPHILS # 0.7 10^3/ul (0.0-0.5); EOSINOPHILS % 5.9 % (0.0-7.0); HEMATOCRIT 28.7 % (37.0-47.0); HEMOGLOBIN 9.3 g/dl (12.0-16.0); LYMPHOCYTES # 5.2 10^3/ul (0.8-2.9); LYMPHOCYTES % 44.9 % (15.0-51.0); MEAN CORPUSCULAR HEMOGLOBIN 28.4 pg (29.0-33.0); MEAN CORPUSCULAR HGB CONC 32.4 g/dl (32.0-37.0); MEAN CORPUSCULAR VOLUME 87.5 fl (82.0-101.0); MEAN PLATELET VOLUME 10.3 fl (7.4-10.4); MONOCYTE # 1.3 10^3/ul (0.3-0.9); MONOCYTES % 11.2 % (0.0-11.0); NEUTROPHIL # 4.2 10^3/ul (1.6-7.5); NEUTROPHILS % 36.2 % (39.0-77.0); NUCLEATED RED BLOOD CELLS # 0.1 10^3/ul (0.0-0.0); NUCLEATED RED BLOOD CELLS% 0.4 /100WBC (0.0-0.0); PLATELET COUNT 341 10^3/UL (140-415); RED BLOOD COUNT 3.28 10^6/ul (4.20-5.40)
[2018-01-08 08:25] LABS: POSITIVE DIFF @See below
[2018-01-08 08:48] LABS: ANION GAP 12 (5-13); BLOOD UREA NITROGEN 14 mg/dl (7-20); CALCIUM 9.3 mg/dl (8.4-10.2); CARBON DIOXIDE 27 mmol/L (21-31); CHLORIDE 100 mmol/L (97-110); CREATININE 0.73 mg/dl (0.44-1.00); Estimated GFR > 60 mL/min (>60); GLUCOSE 92 mg/dl (70-220); POTASSIUM 4.9 mmol/L (3.5-5.1); SODIUM 139 mmol/L (135-144)
[2018-01-08] MEDS: FOLIC ACID 1 MG TAB PO (09:32)
[2018-01-08] MEDS: BISACODYL (EC) 5 MG TAB PO (09:32)
[2018-01-08] MEDS: DOCUSATE SODIUM 100 MG CAP PO ×2 (09:32→21:26)
[2018-01-08] MEDS: FUROSEMIDE 20 MG INJ IV (09:32)
[2018-01-08 10:39] LABS: ANISOCYTOSIS 1+ (0-0); BAND NEUTROPHILS #M 0.2 10^3/ul (0.0-0.6); BAND NEUTROPHILS % (M) 2 % (0-4); BASOPHIL #M 0.2 10^3/ul (0.0-0.0); BASOPHILS % (M) 2 % (0-2); ELLIPTO 1+ (0-0); EOSINOPHILS % (M) 11 % (0-7); GIANT THROMBO% (M) 1 % (0-0); HYPOCHROMASIA 1+ (0-0); LYMPHOCYTES #M 4.8 10^3/ul (0.8-2.9); LYMPHOCYTES % (M) 42 % (15-51); MICROCYTOSIS 1+ (0-0); MONOCYTE #M 1.1 10^3/ul (0.3-0.9); MONOCYTES % (M) 10 % (0-11); OVALOCYTES 1+ (0-0); PLATELET ESTIMATE NORMAL; POIKILOCYTOSIS 1+ (0-0); POLYCHROMASIA 3+ (0-0); SEG NEUT #M 3.8 10^3/ul (1.6-7.5); SEGMENTED NEUTROPHILS (M) % 33 % (39-77); SICKLE CELL 1+ (0-0); SMUDGE%M 12 % (0-0)
[2018-01-08] MEDS: HYDROXYUREA 500 MG CAP PO ×2 (11:47→21:24)
[2018-01-08] MEDS: ONDANSETRON 4 MG INJ IV (13:15)
[2018-01-08 18:47] LABS: ALANINE AMINOTRANSFERASE 70 IU/L (13-69); ALBUMIN/GLOBULIN RATIO 1.11; ALKALINE PHOSPHATASE 144 IU/L (42-121); ANION GAP 10 (5-13); ASPARTATE AMINO TRANSFERASE 109 IU/L (15-46); BILIRUBIN,INDIRECT 1.5 mg/dl (0-1.1); BILIRUBIN,TOTAL 1.5 mg/dl (0.2-1.3); BLOOD UREA NITROGEN 15 mg/dl (7-20); CALCIUM 8.6 mg/dl (8.4-10.2); CARBON DIOXIDE 28 mmol/L (21-31); CHLORIDE 100 mmol/L (97-110); CREATININE 0.69 mg/dl (0.44-1.00); Estimated GFR > 60 mL/min (>60); GLUCOSE 99 mg/dl (70-220); POTASSIUM 4.2 mmol/L (3.5-5.1); SODIUM 138 mmol/L (135-144); TOTAL PROTEIN 7.6 g/dl (6.1-8.1)
[2018-01-08] MEDS: DEFERASIROX 360 MG PO (21:18)
[2018-01-09] MEDS: DIPHENHYDRAMINE 50 MG INJ IV ×6 (01:14→21:05)
[2018-01-09] MEDS: MEROPENEM 1 GM/50ML(PMX) 50 ML IVPB ×3 (01:14→18:31)
[2018-01-09] MEDS: morphine 10 MG INJ IV ×6 (01:14→21:05)
[2018-01-09] MEDS: ONDANSETRON 4 MG INJ IV (05:10)
[2018-01-09 08:22] LABS: ADD MAN DIFF? NO
[2018-01-09 08:25] LABS: BASOPHIL # 0.1 10^3/ul (0.0-0.1); BASOPHILS % 0.8 % (0.0-2.0); EOSINOPHILS # 0.3 10^3/ul (0.0-0.5); EOSINOPHILS % 3.8 % (0.0-7.0); HEMATOCRIT 25.7 % (37.0-47.0); HEMOGLOBIN 8.6 g/dl (12.0-16.0); LYMPHOCYTES # 3.9 10^3/ul (0.8-2.9); LYMPHOCYTES % 46.7 % (15.0-51.0); MEAN CORPUSCULAR HEMOGLOBIN 29.4 pg (29.0-33.0); MEAN CORPUSCULAR HGB CONC 33.5 g/dl (32.0-37.0); MEAN CORPUSCULAR VOLUME 87.7 fl (82.0-101.0); MEAN PLATELET VOLUME 11.3 fl (7.4-10.4); MONOCYTE # 0.6 10^3/ul (0.3-0.9); MONOCYTES % 7.2 % (0.0-11.0); NEUTROPHIL # 3.4 10^3/ul (1.6-7.5); NEUTROPHILS % 40.9 % (39.0-77.0); NUCLEATED RED BLOOD CELLS% 0.5 /100WBC (0.0-0.0); PLATELET COUNT 283 10^3/UL (140-415); RED BLOOD COUNT 2.93 10^6/ul (4.20-5.40)
[2018-01-09 08:25] LABS: WHITE BLOOD COUNT 8.4 10^3/ul (4.8-10.8)
[2018-01-09 08:44] LABS: ALANINE AMINOTRANSFERASE 74 IU/L (13-69); ALBUMIN 3.7 g/dl (3.3-4.9); ALKALINE PHOSPHATASE 136 IU/L (42-121); ASPARTATE AMINO TRANSFERASE 104 IU/L (15-46); BILIRUBIN,INDIRECT 1.4 mg/dl (0-1.1); BILIRUBIN,TOTAL 1.4 mg/dl (0.2-1.3); TOTAL PROTEIN 7.8 g/dl (6.1-8.1)
[2018-01-09] MEDS: DOCUSATE SODIUM 100 MG CAP PO ×2 (08:52→21:04)
[2018-01-09] MEDS: BISACODYL (EC) 5 MG TAB PO (08:52)
[2018-01-09] MEDS: HYDROXYUREA 500 MG CAP PO ×2 (08:52→21:12)
[2018-01-09] MEDS: FOLIC ACID 1 MG TAB PO (08:52)
[2018-01-09] MEDS: FUROSEMIDE 20 MG INJ IV (08:53)
[2018-01-09 08:55] LABS: ANION GAP 5 (5-13); BLOOD UREA NITROGEN 13 mg/dl (7-20); CALCIUM 8.7 mg/dl (8.4-10.2); CARBON DIOXIDE 28 mmol/L (21-31); CHLORIDE 104 mmol/L (97-110); CREATININE 0.69 mg/dl (0.44-1.00); Estimated GFR > 60 mL/min (>60); GLUCOSE 82 mg/dl (70-220); POTASSIUM 4.7 mmol/L (3.5-5.1); SODIUM 137 mmol/L (135-144)
[2018-01-09 13:12] LABS: PROCALCITONIN 0.39 ng/mL (<0.10)
[2018-01-09] MEDS: DEFERASIROX 360 MG PO (21:04)
[2018-01-10] MEDS: morphine 10 MG INJ IV ×6 (01:06→23:27)
[2018-01-10] MEDS: DIPHENHYDRAMINE 50 MG INJ IV ×6 (01:06→23:26)
[2018-01-10] MEDS: MEROPENEM 1 GM/50ML(PMX) 50 ML IVPB ×3 (02:47→17:43)
[2018-01-10] MEDS: DOCUSATE SODIUM 100 MG CAP PO ×2 (09:37→20:10)
[2018-01-10] MEDS: FOLIC ACID 1 MG TAB PO (09:37)
[2018-01-10] MEDS: BISACODYL (EC) 5 MG TAB PO (09:37)
[2018-01-10] MEDS: HYDROXYUREA 500 MG CAP PO ×2 (09:38→20:13)
[2018-01-10] MEDS: FUROSEMIDE 20 MG INJ IV (09:41)
[2018-01-10] MEDS: DEFERASIROX 360 MG PO (20:10)
[2018-01-11] MEDS: MEROPENEM 1 GM/50ML(PMX) 50 ML IVPB ×3 (02:02→17:39)
[2018-01-11] MEDS: morphine 10 MG INJ IV ×6 (03:21→23:27)
[2018-01-11] MEDS: DIPHENHYDRAMINE 50 MG INJ IV ×6 (03:22→23:27)
[2018-01-11] MEDS: PANTOPRAZOLE (EC) 40 MG TAB PO (05:23)
[2018-01-11] MEDS: FUROSEMIDE 20 MG INJ IV (09:13)
[2018-01-11] MEDS: DOCUSATE SODIUM 100 MG CAP PO ×2 (09:13→20:26)
[2018-01-11] MEDS: FOLIC ACID 1 MG TAB PO (09:13)
[2018-01-11] MEDS: BISACODYL (EC) 5 MG TAB PO (09:13)
[2018-01-11] MEDS: HYDROXYUREA 500 MG CAP PO ×2 (09:19→20:30)
[2018-01-11] MEDS ORDERED: AL HYDROX/MG HYDROX/SIMETH 30 ML CUP PO (12:00)
[2018-01-11] MEDS: DEFERASIROX 360 MG PO (20:27)
[2018-01-12] MEDS: MEROPENEM 1 GM/50ML(PMX) 50 ML IVPB ×3 (02:03→19:55)
[2018-01-12] MEDS: morphine 10 MG INJ IV ×5 (03:19→19:56)
[2018-01-12] MEDS: DIPHENHYDRAMINE 50 MG INJ IV ×5 (03:19→19:56)
[2018-01-12] MEDS: PANTOPRAZOLE (EC) 40 MG TAB PO (06:31)
[2018-01-12] MEDS: FOLIC ACID 1 MG TAB PO (10:16)
[2018-01-12] MEDS: BISACODYL (EC) 5 MG TAB PO ×2 (10:16→19:55)
[2018-01-12] MEDS: DOCUSATE SODIUM 100 MG CAP PO ×2 (10:16→19:55)
[2018-01-12] MEDS: HYDROXYUREA 500 MG CAP PO ×2 (10:19→21:00)
[2018-01-12 11:46] LABS: ADD MAN DIFF? NO
[2018-01-12 11:48] LABS: WHITE BLOOD COUNT 9.9 10^3/ul (4.8-10.8)
[2018-01-12 11:49] LABS: BASOPHIL # 0.1 10^3/ul (0.0-0.1); BASOPHILS % 1.4 % (0.0-2.0); EOSINOPHILS # 0.4 10^3/ul (0.0-0.5); EOSINOPHILS % 4.4 % (0.0-7.0); HEMATOCRIT 26.2 % (37.0-47.0); HEMOGLOBIN 8.5 g/dl (12.0-16.0); LYMPHOCYTES # 4.2 10^3/ul (0.8-2.9); LYMPHOCYTES % 41.9 % (15.0-51.0); MEAN CORPUSCULAR HEMOGLOBIN 28.8 pg (29.0-33.0); MEAN CORPUSCULAR HGB CONC 32.4 g/dl (32.0-37.0); MEAN CORPUSCULAR VOLUME 88.8 fl (82.0-101.0); MEAN PLATELET VOLUME 10.9 fl (7.4-10.4); MONOCYTE # 0.9 10^3/ul (0.3-0.9); MONOCYTES % 9.4 % (0.0-11.0); NEUTROPHIL # 4.2 10^3/ul (1.6-7.5); NEUTROPHILS % 42.5 % (39.0-77.0); NUCLEATED RED BLOOD CELLS% 0.2 /100WBC (0.0-0.0); PLATELET COUNT 321 10^3/UL (140-415); RED BLOOD COUNT 2.95 10^6/ul (4.20-5.40); RED CELL DISTRIBUTION WIDTH 18.6 % (11.5-14.5)
[2018-01-12] MEDS: FUROSEMIDE 20 MG INJ IV (12:06)
[2018-01-12 12:08] LABS: ANION GAP 8 (5-13); BLOOD UREA NITROGEN 21 mg/dl (7-20); CALCIUM 8.9 mg/dl (8.4-10.2); CARBON DIOXIDE 28 mmol/L (21-31); CHLORIDE 102 mmol/L (97-110); CREATININE 0.75 mg/dl (0.44-1.00); Estimated GFR > 60 mL/min (>60); GLUCOSE 98 mg/dl (70-220); POTASSIUM 4.8 mmol/L (3.5-5.1); SODIUM 138 mmol/L (135-144)
[2018-01-12] MEDS: DEFERASIROX 360 MG PO (19:55)
[2018-01-13] MEDS: PANTOPRAZOLE (EC) 40 MG TAB PO (05:35)
[2018-01-13] MEDS: MEROPENEM 1 GM/50ML(PMX) 50 ML IVPB ×2 (05:35→13:32)
[2018-01-13] MEDS: morphine 10 MG INJ IV ×5 (05:39→21:41)
[2018-01-13] MEDS: DIPHENHYDRAMINE 50 MG INJ IV ×5 (05:39→21:41)
[2018-01-13] MEDS: FUROSEMIDE 20 MG INJ IV (09:34)
[2018-01-13] MEDS: FOLIC ACID 1 MG TAB PO (09:35)
[2018-01-13] MEDS: HYDROXYUREA 500 MG CAP PO ×2 (09:35→21:56)
[2018-01-13] MEDS: DOCUSATE SODIUM 100 MG CAP PO ×2 (09:35→21:42)
[2018-01-13] MEDS: BISACODYL (EC) 5 MG TAB PO (09:35)
[2018-01-13] MEDS: DEFERASIROX 360 MG PO (21:42)
[2018-01-14] MEDS: DIPHENHYDRAMINE 50 MG INJ IV ×6 (01:39→21:21)
[2018-01-14] MEDS: morphine 10 MG INJ IV ×6 (01:39→21:22)
[2018-01-14] MEDS: ONDANSETRON 4 MG INJ IV (01:45)
[2018-01-14] MEDS: PANTOPRAZOLE (EC) 40 MG TAB PO (05:13)
[2018-01-14] MEDS: DOCUSATE SODIUM 100 MG CAP PO ×2 (09:22→21:00)
[2018-01-14] MEDS: FOLIC ACID 1 MG TAB PO (09:22)
[2018-01-14] MEDS: FUROSEMIDE 20 MG INJ IV (09:22)
[2018-01-14] MEDS: HYDROXYUREA 500 MG CAP PO ×2 (09:23→21:23)
[2018-01-14] MEDS: BISACODYL (EC) 5 MG TAB PO (09:23)
[2018-01-14] MEDS: DEFERASIROX 360 MG PO (21:21)
[2018-01-14] MEDS: HEPARIN (100 UNITS/ML) 5 ML SYG CATHETER (22:00)
== END 2018-01-14 22:36 | disposition home or self-care (01) | DRG 871 ==
LOC: 5EC 12-27 05:41 → E/R 14:08 → 5EC 19:32
PROC: 30243N1 Transfusion of Nonautologous Red Blood Cells into Central Vein, Percutaneous Approach (ICD-10-PCS; principal; 2017-12-28)
DX: A41.59 Other Gram-negative sepsis (principal); D57.00 Hb-SS disease with crisis, unspecified; E83.19 Other disorders of iron metabolism; E83.111 Hemochromatosis due to repeated red blood cell transfusions; R04.0 Epistaxis; Z86.711 Personal history of pulmonary embolism
CPT/HCPCS: 36415; 36430; 71045; 80048; 80053; 80076; 80202; 81003; 81025; 83010; 83605; 83615; 84145; 84484; 85025; 85045; 85610; 85730; 86850; 86900; 86901; 86920; 87040; 87086; 93005; 96374; 96375; 99285-25

== ENCOUNTER 2018-01-23 17:15 | Inpatient (IN) | payer OTHER ==
[2018-01-23] MEDS: SODIUM CHLORIDE 0.9% 1L BAG IV* (18:13)
[2018-01-23] MEDS: ONDANSETRON 4 MG INJ IV ×2 (18:13→20:14)
[2018-01-23] MEDS: HYDROmorphONE 0.5 MG/0.5 ML SYG IV (18:14)
[2018-01-23 18:21] LABS: ABNORMAL IP MESSAGE 1; HEMATOCRIT 24.1 % (37.0-47.0); MEAN CORPUSCULAR HEMOGLOBIN 29.1 pg (29.0-33.0); MEAN CORPUSCULAR HGB CONC 33.2 g/dl (32.0-37.0); MEAN CORPUSCULAR VOLUME 87.6 fl (82.0-101.0); MEAN PLATELET VOLUME 10.8 fl (7.4-10.4); NUCLEATED RED BLOOD CELLS% 0.5 /100WBC (0.0-0.0); PLATELET COUNT 321 10^3/UL (140-415); RED BLOOD COUNT 2.75 10^6/ul (4.20-5.40); RED CELL DISTRIBUTION WIDTH 18.8 % (11.5-14.5); RETICULOCYTE COUNT # 0.185 X10^6 (0.020-0.110); RETICULOCYTE COUNT % 6.7 % (0.5-1.5); RETICULOCYTE RBC 2.75
[2018-01-23 18:21] LABS: WHITE BLOOD COUNT 27.4 10^3/ul (4.8-10.8)
[2018-01-23 18:22] LABS: ADD MAN DIFF? YES; POSITIVE DIFF @See below
[2018-01-23 18:41] LABS: INR 1.08; PARTIAL THROMBOPLASTIN TIME 31.2 Sec (23.0-35.0); PROTIME 14.1 Sec (11.9-14.9); PT RATIO 1.1
[2018-01-23 18:42] LABS: ANION GAP 11 (5-13); BLOOD UREA NITROGEN 20 mg/dl (7-20); CALCIUM 8.9 mg/dl (8.4-10.2); CARBON DIOXIDE 25 mmol/L (21-31); CHLORIDE 105 mmol/L (97-110); CREATININE 1.01 mg/dl (0.44-1.00); Estimated GFR > 60 mL/min (>60); GLUCOSE 100 mg/dl (70-220); POTASSIUM 3.9 mmol/L (3.5-5.1); SODIUM 141 mmol/L (135-144)
[2018-01-23 18:42] LABS: LIPASE 93 U/L (23-300)
[2018-01-23] MEDS: morphine 10 MG INJ IV ×2 (18:42→21:20)
[2018-01-23 18:43] LABS: ANISOCYTOSIS 1+ (0-0); BAND NEUTROPHILS #M 2.4 10^3/ul (0.0-0.6); BAND NEUTROPHILS % (M) 9 % (0-4); GIANT THROMBO% (M) 1 % (0-0); HYPOCHROMASIA 1+ (0-0); LYMPHOCYTES #M 0.8 10^3/ul (0.8-2.9); LYMPHOCYTES % (M) 3 % (15-51); MONOCYTE #M 0.8 10^3/ul (0.3-0.9); MONOCYTES % (M) 3 % (0-11); PLATELET ESTIMATE NORMAL; POLYCHROMASIA 1+ (0-0); REACTIVE LYMPHOCYTES #M 0.2 10^3/ul (0.0-0.0); REACTIVE LYMPHOCYTES% (M) 1 % (0-0); SEG NEUT #M 23.7 10^3/ul (1.6-7.5); SEGMENTED NEUTROPHILS (M) % 84 % (39-77); SICKLE CELL 1+ (0-0); SMUDGE%M 2 % (0-0)
[2018-01-23 18:54] LABS: TROPONIN-I < 0.012 ng/ml (0.000-0.120)
[2018-01-23] MEDS: CEFEPIME 2GM/50 ML (PMX) 50 ML IVPB (19:15)
[2018-01-23] MEDS: AZITHROMYCIN 500MG/NS (PMX) 250 ML IVPB (20:06)
[2018-01-23] MEDS ORDERED: ONDANSETRON 4 MG INJ IV (21:00)
[2018-01-23] MEDS ORDERED: ACETAMINOPHEN 325 MG TAB PO ×2 (21:00→23:30)
[2018-01-23 23:22] LABS: LACTIC ACID 1.1 mmol/L (0.5-2.0)
[2018-01-23] MEDS ORDERED: ZOLPIDEM 5 MG TAB PO (23:30)
[2018-01-23] MEDS ORDERED: HYDROCODONE/APAP (5/325) TAB PO (23:30)
[2018-01-23] MEDS ORDERED: BISACODYL (EC) 5 MG TAB PO (23:30)
[2018-01-23] MEDS ORDERED: DOCUSATE SODIUM 100 MG CAP PO (23:30)
[2018-01-23] MEDS: DIPHENHYDRAMINE 50 MG INJ IV (23:50)
[2018-01-23] MEDS: morphine 2 MG INJ IV (23:50)
[2018-01-24] MEDS: SOD CHLORIDE 0.45% 1,000 ML IV ×2 (00:04→16:20)
[2018-01-24] MEDS: DIPHENHYDRAMINE 50 MG INJ IV ×5 (04:07→20:18)
[2018-01-24] MEDS: morphine 2 MG INJ IV ×5 (04:08→20:17)
[2018-01-24] MEDS: MEROPENEM 1 GM/50ML(PMX) 50 ML IVPB ×3 (05:53→22:27)
[2018-01-24 06:29] LABS: WHITE BLOOD COUNT 20.8 10^3/ul (4.8-10.8)
[2018-01-24 06:29] LABS: ABNORMAL IP MESSAGE 1; ADD MAN DIFF? NO; BASOPHIL # 0.1 10^3/ul (0.0-0.1); BASOPHILS % 0.4 % (0.0-2.0); EOSINOPHILS # 0.5 10^3/ul (0.0-0.5); EOSINOPHILS % 2.6 % (0.0-7.0); HEMATOCRIT 22.1 % (37.0-47.0); HEMOGLOBIN 7.3 g/dl (12.0-16.0); LYMPHOCYTES # 5.2 10^3/ul (0.8-2.9); MEAN CORPUSCULAR HEMOGLOBIN 29.2 pg (29.0-33.0); MEAN CORPUSCULAR VOLUME 88.4 fl (82.0-101.0); MEAN PLATELET VOLUME 11.3 fl (7.4-10.4); MONOCYTE # 1.6 10^3/ul (0.3-0.9); MONOCYTES % 7.8 % (0.0-11.0); NEUTROPHIL # 13.2 10^3/ul (1.6-7.5); NEUTROPHILS % 63.7 % (39.0-77.0); NUCLEATED RED BLOOD CELLS # 0.1 10^3/ul (0.0-0.0); NUCLEATED RED BLOOD CELLS% 0.4 /100WBC (0.0-0.0); PLATELET COUNT 298 10^3/UL (140-415); RED CELL DISTRIBUTION WIDTH 18.9 % (11.5-14.5)
[2018-01-24 06:32] LABS: POSITIVE DIFF @See below
[2018-01-24 06:57] LABS: ANION GAP 9 (5-13); BLOOD UREA NITROGEN 15 mg/dl (7-20); CALCIUM 8.4 mg/dl (8.4-10.2); CARBON DIOXIDE 25 mmol/L (21-31); CHLORIDE 104 mmol/L (97-110); CREATININE 0.86 mg/dl (0.44-1.00); Estimated GFR > 60 mL/min (>60); GLUCOSE 99 mg/dl (70-220); POTASSIUM 4.5 mmol/L (3.5-5.1); SODIUM 138 mmol/L (135-144)
[2018-01-24] MEDS: FOLIC ACID 1 MG TAB PO (08:10)
[2018-01-24] MEDS: FUROSEMIDE 20 MG TAB PO (08:12)
[2018-01-24] MEDS: HYDROXYUREA 500 MG CAP PO ×2 (08:23→22:45)
[2018-01-24] MEDS ORDERED: PATIENT'S OWN MEDICATION PO (09:00)
[2018-01-24] MEDS: LINEZOLID 600 MG/D5W (PMX) 300 ML IVPB ×2 (09:30→21:10)
[2018-01-24] MEDS: DEFERASIROX 360 MG PO ×2 (22:27)
[2018-01-25] MEDS: morphine 2 MG INJ IV ×6 (00:26→21:13)
[2018-01-25] MEDS: DIPHENHYDRAMINE 50 MG INJ IV ×5 (00:39→21:12)
[2018-01-25] MEDS: MEROPENEM 1 GM/50ML(PMX) 50 ML IVPB ×3 (04:22→22:17)
[2018-01-25] MEDS: ONDANSETRON 4 MG INJ IV ×5 (04:34→21:13)
[2018-01-25 06:16] LABS: WHITE BLOOD COUNT 12.8 10^3/ul (4.8-10.8)
[2018-01-25 06:16] LABS: ABNORMAL IP MESSAGE 1; HEMATOCRIT 20.9 % (37.0-47.0); MEAN CORPUSCULAR HEMOGLOBIN 28.6 pg (29.0-33.0); MEAN CORPUSCULAR HGB CONC 32.5 g/dl (32.0-37.0); MEAN CORPUSCULAR VOLUME 87.8 fl (82.0-101.0); MEAN PLATELET VOLUME 11.5 fl (7.4-10.4); NUCLEATED RED BLOOD CELLS% 0.9 /100WBC (0.0-0.0); PLATELET COUNT 297 10^3/UL (140-415); RED BLOOD COUNT 2.38 10^6/ul (4.20-5.40); RED CELL DISTRIBUTION WIDTH 19.1 % (11.5-14.5)
[2018-01-25 06:25] LABS: POSITIVE DIFF @See below
[2018-01-25 06:26] LABS: ADD MAN DIFF? YES; HEMOGLOBIN 6.8 g/dl (12.0-16.0)
[2018-01-25 08:08] LABS: ANISOCYTOSIS 1+ (0-0); BAND NEUTROPHILS #M 0.5 10^3/ul (0.0-0.6); BAND NEUTROPHILS % (M) 4 % (0-4); BASOPHIL #M 0.1 10^3/ul (0.0-0.0); BASOPHILS % (M) 1 % (0-2); EOSINOPHILS % (M) 10 % (0-7); ERYTHROBLAST% (NRBC) (M) 1 % (0-0); GIANT THROMBO% (M) 1 % (0-0); HYPOCHROMASIA 2+ (0-0); LYMPHOCYTES #M 4.3 10^3/ul (0.8-2.9); LYMPHOCYTES % (M) 34 % (15-51); METAMYELOCYTES #M 0.1 10^3/ul (0.0-0.0); METAMYELOCYTES %M 1 % (0-0); MONOCYTE #M 0.5 10^3/ul (0.3-0.9); MONOCYTES % (M) 4 % (0-11); OVALOCYTES 1+ (0-0); PLATELET ESTIMATE NORMAL; POIKILOCYTOSIS 2+ (0-0); SEG NEUT #M 6.1 10^3/ul (1.6-7.5); SEGMENTED NEUTROPHILS (M) % 47 % (39-77); SICKLE CELL 1+ (0-0); SMUDGE%M 7 % (0-0); TARGET CELLS 2+ (0-0)
[2018-01-25] MEDS: LINEZOLID 600 MG/D5W (PMX) 300 ML IVPB ×2 (08:29→20:42)
[2018-01-25] MEDS: FUROSEMIDE 20 MG TAB PO (08:30)
[2018-01-25] MEDS: FOLIC ACID 1 MG TAB PO (08:31)
[2018-01-25] MEDS: SOD CHLORIDE 0.45% 1,000 ML IV (08:36)
[2018-01-25] MEDS: HYDROXYUREA 500 MG CAP PO ×3 (09:15→21:03)
[2018-01-25 12:29] LABS: IMMEDIATE SPIN CROSSMATCH 1 4
[2018-01-25] MEDS: DEFERASIROX 360 MG PO ×2 (20:44→21:00)
[2018-01-26] MEDS: morphine 2 MG INJ IV ×3 (01:18→13:44)
[2018-01-26] MEDS: DIPHENHYDRAMINE 50 MG INJ IV ×5 (01:19→21:53)
[2018-01-26] MEDS: SOD CHLORIDE 0.45% 1,000 ML IV ×2 (04:20→18:08)
[2018-01-26] MEDS: MEROPENEM 1 GM/50ML(PMX) 50 ML IVPB ×3 (05:50→23:01)
[2018-01-26] MEDS: FUROSEMIDE 20 MG TAB PO (09:05)
[2018-01-26] MEDS: ONDANSETRON 4 MG INJ IV ×2 (09:05→13:40)
[2018-01-26] MEDS: FOLIC ACID 1 MG TAB PO (09:05)
[2018-01-26] MEDS: LINEZOLID 600 MG/D5W (PMX) 300 ML IVPB ×2 (09:06→21:15)
[2018-01-26] MEDS: HYDROXYUREA 500 MG CAP PO ×2 (09:28→21:14)
[2018-01-26 10:39] LABS: ADD MAN DIFF? NO
[2018-01-26 10:41] LABS: BASOPHIL # 0.1 10^3/ul (0.0-0.1); EOSINOPHILS # 0.6 10^3/ul (0.0-0.5); EOSINOPHILS % 5.7 % (0.0-7.0); HEMATOCRIT 27.7 % (37.0-47.0); HEMOGLOBIN 9.4 g/dl (12.0-16.0); LYMPHOCYTES # 3.3 10^3/ul (0.8-2.9); LYMPHOCYTES % 33.5 % (15.0-51.0); MEAN CORPUSCULAR HEMOGLOBIN 29.7 pg (29.0-33.0); MEAN CORPUSCULAR HGB CONC 33.9 g/dl (32.0-37.0); MEAN CORPUSCULAR VOLUME 87.4 fl (82.0-101.0); MEAN PLATELET VOLUME 10.8 fl (7.4-10.4); MONOCYTE # 1.2 10^3/ul (0.3-0.9); MONOCYTES % 11.8 % (0.0-11.0); NEUTROPHIL # 4.6 10^3/ul (1.6-7.5); NEUTROPHILS % 47.2 % (39.0-77.0); NUCLEATED RED BLOOD CELLS # 0.1 10^3/ul (0.0-0.0); PLATELET COUNT 278 10^3/UL (140-415); RED BLOOD COUNT 3.17 10^6/ul (4.20-5.40); RED CELL DISTRIBUTION WIDTH 17.4 % (11.5-14.5)
[2018-01-26 10:41] LABS: WHITE BLOOD COUNT 9.7 10^3/ul (4.8-10.8)
[2018-01-26] MEDS ORDERED: DIPHENHYDRAMINE 25 MG CAP PO (11:30)
[2018-01-26] MEDS ORDERED: ACETAMINOPHEN 500 MG TAB PO (11:30)
[2018-01-26] MEDS ORDERED: HYDROCODONE/APAP (5/325) TAB PO (13:00)
[2018-01-26] MEDS: SOD CHLORIDE 0.9% 100 ML (15:16)
[2018-01-26] MEDS: IOHEXOL 300MG/ML 150 ML BTL (15:16)
[2018-01-26] MEDS: IOHEXOL 300MG/ML 30 ML BTL (15:38)
[2018-01-26] MEDS: morphine 10 MG INJ IV ×2 (17:46→21:49)
[2018-01-26] MEDS: DEFERASIROX 360 MG PO (21:12)
[2018-01-26] MEDS: APIXABAN 5 MG TABLET PO (21:12)
[2018-01-26] MEDS: BISACODYL (EC) 5 MG TAB PO (22:14)
[2018-01-27] MEDS: DIPHENHYDRAMINE 50 MG INJ IV ×6 (01:50→22:11)
[2018-01-27] MEDS: morphine 10 MG INJ IV ×6 (01:51→22:13)
[2018-01-27] MEDS: ZOLPIDEM 5 MG TAB PO (02:02)
[2018-01-27] MEDS: SOD CHLORIDE 0.45% 1,000 ML IV (05:53)
[2018-01-27] MEDS: CIPROFLOXACIN 400MG/D5W 200 ML IVPB ×2 (09:52→20:23)
[2018-01-27] MEDS: APIXABAN 5 MG TABLET PO ×2 (09:53→20:23)
[2018-01-27] MEDS: FOLIC ACID 1 MG TAB PO (09:56)
[2018-01-27] MEDS: HYDROXYUREA 500 MG CAP PO ×2 (09:58→20:24)
[2018-01-27] MEDS: FUROSEMIDE 20 MG TAB PO (10:02)
[2018-01-27 15:33] LABS: ADD UMIC NO; UR ASCORBIC ACID NEGATIVE (NEGATIVE); UR BILIRUBIN (Dip) NEGATIVE (NEGATIVE); UR BLOOD (Dip) NEGATIVE (NEGATIVE); UR CLARITY CLEAR (CLEAR); UR COLOR YELLOW (YELLOW); UR GLUCOSE (Dip) NEGATIVE (NEGATIVE); UR KETONES (Dip) NEGATIVE (NEGATIVE); UR LEUKOCYTE ESTERASE (Dip) NEGATIVE Leu/ul (NEGATIVE); UR NITRITE (Dip) NEGATIVE (NEGATIVE); UR SPECIFIC GRAVITY (Dip) 1.017 (1.003-1.030); UR TOTAL PROTEIN (Dip) NEGATIVE (NEGATIVE); UR UROBILINOGEN (Dip) NEGATIVE (NEGATIVE)
[2018-01-27] MEDS: DEFERASIROX 360 MG PO (20:25)
[2018-01-27] MEDS: ONDANSETRON 4 MG INJ IV (22:11)
[2018-01-28] MEDS: morphine 10 MG INJ IV ×6 (02:11→23:08)
[2018-01-28] MEDS: DIPHENHYDRAMINE 50 MG INJ IV ×6 (02:11→23:08)
[2018-01-28] MEDS: SOD CHLORIDE 0.45% 1,000 ML IV ×3 (03:30→20:10)
[2018-01-28] MEDS: ONDANSETRON 4 MG INJ IV ×3 (04:13→19:04)
[2018-01-28] MEDS: CIPROFLOXACIN 400MG/D5W 200 ML IVPB ×2 (08:53→20:53)
[2018-01-28] MEDS: APIXABAN 5 MG TABLET PO ×2 (10:10→20:53)
[2018-01-28] MEDS: FOLIC ACID 1 MG TAB PO (10:10)
[2018-01-28] MEDS: FUROSEMIDE 20 MG TAB PO (10:11)
[2018-01-28] MEDS: HYDROXYUREA 500 MG CAP PO ×2 (10:13→20:57)
[2018-01-28] MEDS: DEFERASIROX 360 MG PO (20:53)
[2018-01-29] MEDS: DIPHENHYDRAMINE 50 MG INJ IV ×5 (03:07→20:57)
[2018-01-29] MEDS: morphine 10 MG INJ IV ×5 (03:08→20:58)
[2018-01-29] MEDS: CIPROFLOXACIN 500 MG TAB PO ×3 (05:23→17:59)
[2018-01-29] MEDS: FUROSEMIDE 20 MG TAB PO (08:55)
[2018-01-29] MEDS: FOLIC ACID 1 MG TAB PO (08:55)
[2018-01-29] MEDS: APIXABAN 5 MG TABLET PO ×2 (08:56→20:57)
[2018-01-29] MEDS: HYDROXYUREA 500 MG CAP PO ×2 (09:00→21:02)
[2018-01-29] MEDS: ONDANSETRON 4 MG INJ IV (09:05)
[2018-01-29] MEDS: SOD CHLORIDE 0.45% 1,000 ML IV ×2 (12:50→16:14)
[2018-01-29] MEDS: CIPROFLOXACIN 400MG/D5W 200 ML IVPB (18:13)
[2018-01-29] MEDS ORDERED: VITAMIN A & D 5 GM OINT PACKET TOP (18:22)
[2018-01-29] MEDS: DEFERASIROX 360 MG PO (20:57)
[2018-01-30] MEDS: DIPHENHYDRAMINE 50 MG INJ IV ×6 (01:15→21:13)
[2018-01-30] MEDS: morphine 10 MG INJ IV ×6 (01:15→21:13)
[2018-01-30] MEDS: SOD CHLORIDE 0.45% 1,000 ML IV ×2 (05:13→22:10)
[2018-01-30 05:32] LABS: ADD MAN DIFF? NO; BASOPHIL # 0.1 10^3/ul (0.0-0.1); BASOPHILS % 0.8 % (0.0-2.0); EOSINOPHILS # 0.5 10^3/ul (0.0-0.5); EOSINOPHILS % 3.6 % (0.0-7.0); HEMATOCRIT 27.6 % (37.0-47.0); LYMPHOCYTES # 3.5 10^3/ul (0.8-2.9); LYMPHOCYTES % 24.7 % (15.0-51.0); MEAN CORPUSCULAR HGB CONC 32.6 g/dl (32.0-37.0); MEAN PLATELET VOLUME 10.5 fl (7.4-10.4); MONOCYTE # 0.9 10^3/ul (0.3-0.9); MONOCYTES % 5.9 % (0.0-11.0); NEUTROPHIL # 9.2 10^3/ul (1.6-7.5); NEUTROPHILS % 64.1 % (39.0-77.0); NUCLEATED RED BLOOD CELLS% 0.1 /100WBC (0.0-0.0); PLATELET COUNT 222 10^3/UL (140-415); RED CELL DISTRIBUTION WIDTH 17.5 % (11.5-14.5)
[2018-01-30 05:32] LABS: WHITE BLOOD COUNT 14.3 10^3/ul (4.8-10.8)
[2018-01-30 06:09] LABS: ANION GAP 9 (5-13); BLOOD UREA NITROGEN 16 mg/dl (7-20); CALCIUM 8.9 mg/dl (8.4-10.2); CARBON DIOXIDE 29 mmol/L (21-31); CHLORIDE 100 mmol/L (97-110); CREATININE 0.74 mg/dl (0.44-1.00); Estimated GFR > 60 mL/min (>60); GLUCOSE 102 mg/dl (70-220); SODIUM 138 mmol/L (135-144)
[2018-01-30] MEDS: CIPROFLOXACIN 400MG/D5W 200 ML IVPB ×2 (06:13→17:01)
[2018-01-30] MEDS: FOLIC ACID 1 MG TAB PO (08:57)
[2018-01-30] MEDS: APIXABAN 5 MG TABLET PO ×2 (08:57→21:44)
[2018-01-30] MEDS: FUROSEMIDE 20 MG TAB PO (08:57)
[2018-01-30] MEDS: HYDROXYUREA 500 MG CAP PO ×2 (09:39→21:52)
[2018-01-30] MEDS: DEFERASIROX 360 MG PO (21:43)
[2018-01-31] MEDS: FLUCONAZOLE 100 MG/50 ML (PMX) 50 ML IVPB (01:07)
[2018-01-31] MEDS: DIPHENHYDRAMINE 50 MG INJ IV ×6 (01:07→21:00)
[2018-01-31] MEDS: morphine 10 MG INJ IV ×6 (01:08→21:00)
[2018-01-31] MEDS: CIPROFLOXACIN 400MG/D5W 200 ML IVPB ×2 (05:08→17:08)
[2018-01-31 05:58] LABS: ADD MAN DIFF? NO
[2018-01-31 06:00] LABS: BASOPHIL # 0.1 10^3/ul (0.0-0.1); BASOPHILS % 1.1 % (0.0-2.0); EOSINOPHILS # 0.7 10^3/ul (0.0-0.5); EOSINOPHILS % 7.1 % (0.0-7.0); HEMATOCRIT 28.4 % (37.0-47.0); HEMOGLOBIN 9.4 g/dl (12.0-16.0); LYMPHOCYTES # 4.3 10^3/ul (0.8-2.9); LYMPHOCYTES % 42.7 % (15.0-51.0); MEAN CORPUSCULAR HEMOGLOBIN 29.3 pg (29.0-33.0); MEAN CORPUSCULAR HGB CONC 33.1 g/dl (32.0-37.0); MEAN CORPUSCULAR VOLUME 88.5 fl (82.0-101.0); MEAN PLATELET VOLUME 11.1 fl (7.4-10.4); MONOCYTE # 1.1 10^3/ul (0.3-0.9); MONOCYTES % 11.2 % (0.0-11.0); NEUTROPHIL # 3.8 10^3/ul (1.6-7.5); NEUTROPHILS % 37.4 % (39.0-77.0); NUCLEATED RED BLOOD CELLS% 0.3 /100WBC (0.0-0.0); PLATELET COUNT 248 10^3/UL (140-415); RED BLOOD COUNT 3.21 10^6/ul (4.20-5.40); RED CELL DISTRIBUTION WIDTH 17.4 % (11.5-14.5)
[2018-01-31 06:00] LABS: WHITE BLOOD COUNT 10.1 10^3/ul (4.8-10.8)
[2018-01-31 06:42] LABS: ANION GAP 10 (5-13); BLOOD UREA NITROGEN 16 mg/dl (7-20); CARBON DIOXIDE 30 mmol/L (21-31); CHLORIDE 97 mmol/L (97-110); CREATININE 0.78 mg/dl (0.44-1.00); Estimated GFR > 60 mL/min (>60); GLUCOSE 99 mg/dl (70-220); POTASSIUM 4.4 mmol/L (3.5-5.1); SODIUM 137 mmol/L (135-144)
[2018-01-31] MEDS: SOD CHLORIDE 0.45% 1,000 ML IV (08:48)
[2018-01-31] MEDS: FUROSEMIDE 20 MG TAB PO (08:51)
[2018-01-31] MEDS: FOLIC ACID 1 MG TAB PO (08:51)
[2018-01-31] MEDS: APIXABAN 5 MG TABLET PO ×2 (08:51→21:00)
[2018-01-31] MEDS: HYDROXYUREA 500 MG CAP PO ×2 (09:34→21:12)
[2018-01-31] MEDS: DEFERASIROX 360 MG PO (21:00)
[2018-02-01] MEDS: FLUCONAZOLE 100 MG/50 ML (PMX) 50 ML IVPB (00:06)
[2018-02-01] MEDS: DIPHENHYDRAMINE 50 MG INJ IV ×6 (01:04→22:13)
[2018-02-01] MEDS: ZOLPIDEM 5 MG TAB PO (01:04)
[2018-02-01] MEDS: morphine 10 MG INJ IV ×6 (01:04→22:14)
[2018-02-01] MEDS: ONDANSETRON 4 MG INJ IV ×3 (01:04→22:26)
[2018-02-01] MEDS: CIPROFLOXACIN 400MG/D5W 200 ML IVPB ×2 (06:08→17:52)
[2018-02-01] MEDS: SOD CHLORIDE 0.45% 1,000 ML IV ×2 (07:30→22:12)
[2018-02-01] MEDS: APIXABAN 5 MG TABLET PO ×2 (09:01→22:13)
[2018-02-01] MEDS: FUROSEMIDE 20 MG TAB PO (09:01)
[2018-02-01] MEDS: FOLIC ACID 1 MG TAB PO (09:01)
[2018-02-01] MEDS: HYDROXYUREA 500 MG CAP PO ×2 (09:03→22:22)
[2018-02-01] MEDS: DEFERASIROX 360 MG PO (22:13)
[2018-02-02] MEDS: FLUCONAZOLE 100 MG/50 ML (PMX) 50 ML IVPB (00:07)
[2018-02-02] MEDS: ZOLPIDEM 5 MG TAB PO (01:31)
[2018-02-02] MEDS: morphine 10 MG INJ IV ×6 (02:11→22:08)
[2018-02-02] MEDS: DIPHENHYDRAMINE 50 MG INJ IV ×6 (02:11→22:07)
[2018-02-02] MEDS: CIPROFLOXACIN 400MG/D5W 200 ML IVPB ×2 (06:06→18:12)
[2018-02-02] MEDS: APIXABAN 5 MG TABLET PO ×2 (08:50→21:58)
[2018-02-02] MEDS: FOLIC ACID 1 MG TAB PO (08:50)
[2018-02-02] MEDS: FUROSEMIDE 20 MG TAB PO (08:51)
[2018-02-02] MEDS: HYDROXYUREA 500 MG CAP PO ×2 (08:58→22:02)
[2018-02-02] MEDS: ONDANSETRON 4 MG INJ IV (10:28)
[2018-02-02] MEDS: SOD CHLORIDE 0.45% 1,000 ML IV (16:50)
[2018-02-02] MEDS: DEFERASIROX 360 MG PO (21:00)
[2018-02-03] MEDS: FLUCONAZOLE 100 MG/50 ML (PMX) 50 ML IVPB (01:12)
[2018-02-03] MEDS: ZOLPIDEM 5 MG TAB PO (01:19)
[2018-02-03] MEDS: morphine 10 MG INJ IV ×6 (02:21→22:04)
[2018-02-03] MEDS: DIPHENHYDRAMINE 50 MG INJ IV ×6 (02:21→22:04)
[2018-02-03] MEDS: SOD CHLORIDE 0.45% 1,000 ML IV (05:28)
[2018-02-03] MEDS: CIPROFLOXACIN 400MG/D5W 200 ML IVPB ×2 (05:28→18:13)
[2018-02-03] MEDS ORDERED: POLYMYXIN/BACITRACIN 1L IRRIG IRR (07:00)
[2018-02-03 07:03] LABS: ADD MAN DIFF? NO
[2018-02-03 07:13] LABS: WHITE BLOOD COUNT 10.8 10^3/ul (4.8-10.8)
[2018-02-03 07:13] LABS: BASOPHIL # 0.1 10^3/ul (0.0-0.1); BASOPHILS % 1.1 % (0.0-2.0); EOSINOPHILS # 0.5 10^3/ul (0.0-0.5); EOSINOPHILS % 4.8 % (0.0-7.0); HEMATOCRIT 28.4 % (37.0-47.0); HEMOGLOBIN 9.2 g/dl (12.0-16.0); LYMPHOCYTES # 3.2 10^3/ul (0.8-2.9); LYMPHOCYTES % 29.9 % (15.0-51.0); MEAN CORPUSCULAR HEMOGLOBIN 28.8 pg (29.0-33.0); MEAN CORPUSCULAR HGB CONC 32.4 g/dl (32.0-37.0); MEAN CORPUSCULAR VOLUME 88.8 fl (82.0-101.0); MEAN PLATELET VOLUME 11.3 fl (7.4-10.4); MONOCYTE # 1.1 10^3/ul (0.3-0.9); MONOCYTES % 10.3 % (0.0-11.0); NEUTROPHIL # 5.8 10^3/ul (1.6-7.5); NEUTROPHILS % 53.4 % (39.0-77.0); NUCLEATED RED BLOOD CELLS% 0.4 /100WBC (0.0-0.0); PLATELET COUNT 225 10^3/UL (140-415); RED CELL DISTRIBUTION WIDTH 17.6 % (11.5-14.5)
[2018-02-03 07:42] LABS: ANION GAP 10 (5-13); BLOOD UREA NITROGEN 17 mg/dl (7-20); CALCIUM 9.4 mg/dl (8.4-10.2); CARBON DIOXIDE 27 mmol/L (21-31); CHLORIDE 102 mmol/L (97-110); CREATININE 0.87 mg/dl (0.44-1.00); Estimated GFR > 60 mL/min (>60); GLUCOSE 102 mg/dl (70-220); POTASSIUM 4.7 mmol/L (3.5-5.1); SODIUM 139 mmol/L (135-144)
[2018-02-03] MEDS: APIXABAN 5 MG TABLET PO (09:00)
[2018-02-03] MEDS: FOLIC ACID 1 MG TAB PO (09:40)
[2018-02-03] MEDS: HYDROXYUREA 500 MG CAP PO ×2 (09:41→21:00)
[2018-02-03] MEDS: FUROSEMIDE 20 MG TAB PO (09:42)
[2018-02-03] MEDS: ONDANSETRON 4 MG INJ IV ×2 (10:13→22:23)
[2018-02-03] MEDS: DEFERASIROX 360 MG PO (21:00)
[2018-02-03] MEDS: ONDANSETRON 4 MG TAB PO (22:18)
[2018-02-04] MEDS: FLUCONAZOLE 100 MG/50 ML (PMX) 50 ML IVPB (00:31)
[2018-02-04] MEDS: SOD CHLORIDE 0.45% 1,000 ML IV ×2 (02:10→17:15)
[2018-02-04] MEDS: morphine 10 MG INJ IV ×5 (02:13→20:20)
[2018-02-04] MEDS: DIPHENHYDRAMINE 50 MG INJ IV ×4 (02:13→20:20)
[2018-02-04] MEDS: CIPROFLOXACIN 400MG/D5W 200 ML IVPB ×2 (06:21→17:14)
[2018-02-04 07:21] LABS: INR 1.29; PROTIME 16.3 Sec (11.9-14.9); PT RATIO 1.3
[2018-02-04 07:22] LABS: PARTIAL THROMBOPLASTIN TIME 29.6 Sec (23.0-35.0)
[2018-02-04 07:35] LABS: ALANINE AMINOTRANSFERASE 89 IU/L (13-69); ALBUMIN 4.1 g/dl (3.3-4.9); ALBUMIN/GLOBULIN RATIO 0.95; ALKALINE PHOSPHATASE 161 IU/L (42-121); ANION GAP 12 (5-13); ASPARTATE AMINO TRANSFERASE 128 IU/L (15-46); BILIRUBIN,INDIRECT 1.4 mg/dl (0-1.1); BILIRUBIN,TOTAL 1.4 mg/dl (0.2-1.3); BLOOD UREA NITROGEN 22 mg/dl (7-20); CARBON DIOXIDE 24 mmol/L (21-31); CHLORIDE 105 mmol/L (97-110); CREATININE 1.09 mg/dl (0.44-1.00); Estimated GFR 60 mL/min (>60); GLUCOSE 107 mg/dl (70-220); POTASSIUM 4.8 mmol/L (3.5-5.1); SODIUM 141 mmol/L (135-144); TOTAL PROTEIN 8.4 g/dl (6.1-8.1)
[2018-02-04 08:38] LABS: HEMATOCRIT 24.1 % (37.0-47.0); HEMOGLOBIN 7.8 g/dl (12.0-16.0); MEAN CORPUSCULAR HEMOGLOBIN 29.9 pg (29.0-33.0); MEAN CORPUSCULAR HGB CONC 32.4 g/dl (32.0-37.0); MEAN CORPUSCULAR VOLUME 92.3 fl (82.0-101.0); MEAN PLATELET VOLUME 10.8 fl (7.4-10.4); NUCLEATED RED BLOOD CELLS% 0.2 /100WBC (0.0-0.0); PLATELET COUNT 164 10^3/UL (140-415); RED BLOOD COUNT 2.61 10^6/ul (4.20-5.40)
[2018-02-04] MEDS: FOLIC ACID 1 MG TAB PO (08:45)
[2018-02-04] MEDS: HYDROXYUREA 500 MG CAP PO ×2 (08:45→20:26)
[2018-02-04] MEDS: FUROSEMIDE 20 MG TAB PO (08:45)
[2018-02-04 08:58] LABS: ADD MAN DIFF? YES
[2018-02-04 09:49] LABS: ANISOCYTOSIS 1+ (0-0); BASOPHIL #M 0.2 10^3/ul (0.0-0.0); BASOPHILS % (M) 2 % (0-2); EOSINOPHILS % (M) 3 % (0-7); GIANT THROMBO% (M) 2 % (0-0); HYPOCHROMASIA 1+ (0-0); LYMPHOCYTES #M 3.9 10^3/ul (0.8-2.9); LYMPHOCYTES % (M) 39 % (15-51); MONOCYTE #M 0.2 10^3/ul (0.3-0.9); MONOCYTES % (M) 2 % (0-11); PLATELET ESTIMATE NORMAL; POLYCHROMASIA 1+ (0-0); SEGMENTED NEUTROPHILS (M) % 54 % (39-77); SICKLE CELL 1+ (0-0); SMUDGE%M 14 % (0-0); TARGET CELLS 1+ (0-0)
[2018-02-04] MEDS ORDERED: LIDOCAINE 100 MG SYRINGE (13:56)
[2018-02-04] MEDS ORDERED: PROPOFOL 40 ML (13:57)
[2018-02-04] MEDS ORDERED: FENTAnyl 50 MCG/ML VIAL (13:57)
[2018-02-04] MEDS: morphine 4 MG/ML VIAL IV (17:14)
[2018-02-04] MEDS: DEFERASIROX 360 MG PO (20:20)
[2018-02-05] MEDS: DIPHENHYDRAMINE 50 MG INJ IV ×6 (00:19→21:12)
[2018-02-05] MEDS: FLUCONAZOLE 100 MG/50 ML (PMX) 50 ML IVPB ×2 (00:19→23:40)
[2018-02-05] MEDS: morphine 10 MG INJ IV ×6 (00:19→21:12)
[2018-02-05] MEDS: SOD CHLORIDE 0.45% 1,000 ML IV (05:16)
[2018-02-05] MEDS: CIPROFLOXACIN 400MG/D5W 200 ML IVPB ×2 (05:16→18:34)
[2018-02-05 05:55] LABS: ADD MAN DIFF? NO
[2018-02-05 05:58] LABS: WHITE BLOOD COUNT 10.2 10^3/ul (4.8-10.8)
[2018-02-05 05:58] LABS: BASOPHIL # 0.1 10^3/ul (0.0-0.1); BASOPHILS % 0.8 % (0.0-2.0); EOSINOPHILS # 0.5 10^3/ul (0.0-0.5); EOSINOPHILS % 4.8 % (0.0-7.0); HEMOGLOBIN 8.3 g/dl (12.0-16.0); LYMPHOCYTES # 2.4 10^3/ul (0.8-2.9); LYMPHOCYTES % 23.4 % (15.0-51.0); MEAN CORPUSCULAR HEMOGLOBIN 29.3 pg (29.0-33.0); MEAN CORPUSCULAR HGB CONC 33.2 g/dl (32.0-37.0); MEAN CORPUSCULAR VOLUME 88.3 fl (82.0-101.0); MEAN PLATELET VOLUME 11.1 fl (7.4-10.4); MONOCYTE # 0.9 10^3/ul (0.3-0.9); MONOCYTES % 8.7 % (0.0-11.0); NEUTROPHIL # 6.3 10^3/ul (1.6-7.5); NEUTROPHILS % 61.7 % (39.0-77.0); NUCLEATED RED BLOOD CELLS% 0.2 /100WBC (0.0-0.0); PLATELET COUNT 217 10^3/UL (140-415); RED BLOOD COUNT 2.83 10^6/ul (4.20-5.40); RED CELL DISTRIBUTION WIDTH 17.8 % (11.5-14.5)
[2018-02-05] MEDS: FOLIC ACID 1 MG TAB PO (10:06)
[2018-02-05] MEDS: HYDROXYUREA 500 MG CAP PO ×2 (10:06→21:19)
[2018-02-05] MEDS: FUROSEMIDE 20 MG TAB PO (10:06)
[2018-02-05] MEDS ORDERED: CEFAZOLIN 1 GM/50 ML (PMX) 100 ML IVPB (15:30)
[2018-02-05] MEDS ORDERED: MIDAZOLAM 1 MG/ML 2 ML INJ ×2 (15:30→16:38)
[2018-02-05] MEDS ORDERED: FENTAnyl 50 MCG/ML VIAL ×2 (15:30→15:38)
[2018-02-05] MEDS ORDERED: IODIXANOL LOCM 100 ML BTL (16:00)
[2018-02-05] MEDS ORDERED: LIDOCAINE 2% (MDV) 20 ML INJ ×2 (16:00→16:46)
[2018-02-05] MEDS ORDERED: SOD CHLORIDE 0.9% 500 ML (16:00)
[2018-02-05] MEDS ORDERED: HEPARIN 1000 UNITS/ML 10 ML INJ (16:13)
[2018-02-05] MEDS: BISACODYL (EC) 5 MG TAB PO (21:25)
[2018-02-05] MEDS: DEFERASIROX 360 MG PO (21:25)
[2018-02-06] MEDS: morphine 10 MG INJ IV ×6 (01:26→21:40)
[2018-02-06] MEDS: DIPHENHYDRAMINE 50 MG INJ IV ×6 (01:26→21:45)
[2018-02-06] MEDS: SOD CHLORIDE 0.45% 1,000 ML IV ×2 (04:10→21:45)
[2018-02-06] MEDS: CIPROFLOXACIN 400MG/D5W 200 ML IVPB ×2 (05:28→18:27)
[2018-02-06] MEDS: FOLIC ACID 1 MG TAB PO (09:47)
[2018-02-06] MEDS: FUROSEMIDE 20 MG TAB PO (09:50)
[2018-02-06] MEDS: HYDROXYUREA 500 MG CAP PO ×2 (11:11→21:44)
[2018-02-06 13:23] LABS: ADD MAN DIFF? NO
[2018-02-06 13:25] LABS: WHITE BLOOD COUNT 11.9 10^3/ul (4.8-10.8)
[2018-02-06 13:25] LABS: BASOPHIL # 0.1 10^3/ul (0.0-0.1); BASOPHILS % 0.8 % (0.0-2.0); EOSINOPHILS # 0.5 10^3/ul (0.0-0.5); EOSINOPHILS % 3.9 % (0.0-7.0); HEMATOCRIT 25.1 % (37.0-47.0); HEMOGLOBIN 8.4 g/dl (12.0-16.0); LYMPHOCYTES # 3.3 10^3/ul (0.8-2.9); MEAN CORPUSCULAR HEMOGLOBIN 29.3 pg (29.0-33.0); MEAN CORPUSCULAR HGB CONC 33.5 g/dl (32.0-37.0); MEAN CORPUSCULAR VOLUME 87.5 fl (82.0-101.0); MEAN PLATELET VOLUME 10.7 fl (7.4-10.4); MONOCYTE # 1.1 10^3/ul (0.3-0.9); MONOCYTES % 8.8 % (0.0-11.0); NEUTROPHILS % 58.2 % (39.0-77.0); NUCLEATED RED BLOOD CELLS% 0.2 /100WBC (0.0-0.0); PLATELET COUNT 209 10^3/UL (140-415); RED BLOOD COUNT 2.87 10^6/ul (4.20-5.40); RED CELL DISTRIBUTION WIDTH 17.7 % (11.5-14.5)
[2018-02-06 13:43] LABS: ANION GAP 10 (5-13); BLOOD UREA NITROGEN 12 mg/dl (7-20); CALCIUM 8.7 mg/dl (8.4-10.2); CARBON DIOXIDE 25 mmol/L (21-31); CHLORIDE 103 mmol/L (97-110); CREATININE 0.73 mg/dl (0.44-1.00); Estimated GFR > 60 mL/min (>60); GLUCOSE 126 mg/dl (70-220); POTASSIUM 4.2 mmol/L (3.5-5.1); SODIUM 138 mmol/L (135-144)
[2018-02-06] MEDS: DEFERASIROX 360 MG PO (21:41)
[2018-02-07] MEDS: morphine 10 MG INJ IV ×6 (01:43→22:22)
[2018-02-07] MEDS: DIPHENHYDRAMINE 50 MG INJ IV ×6 (01:45→22:22)
[2018-02-07] MEDS: ZOLPIDEM 5 MG TAB PO (02:04)
[2018-02-07] MEDS: CIPROFLOXACIN 400MG/D5W 200 ML IVPB ×2 (05:47→17:10)
[2018-02-07 08:40] LABS: ADD MAN DIFF? NO
[2018-02-07 08:47] LABS: WHITE BLOOD COUNT 13.4 10^3/ul (4.8-10.8)
[2018-02-07 08:47] LABS: BASOPHIL # 0.1 10^3/ul (0.0-0.1); BASOPHILS % 0.7 % (0.0-2.0); EOSINOPHILS # 0.5 10^3/ul (0.0-0.5); EOSINOPHILS % 3.9 % (0.0-7.0); HEMOGLOBIN 8.3 g/dl (12.0-16.0); LYMPHOCYTES # 3.5 10^3/ul (0.8-2.9); LYMPHOCYTES % 25.7 % (15.0-51.0); MEAN CORPUSCULAR HEMOGLOBIN 29.6 pg (29.0-33.0); MEAN CORPUSCULAR HGB CONC 33.2 g/dl (32.0-37.0); MEAN CORPUSCULAR VOLUME 89.3 fl (82.0-101.0); MONOCYTE # 1.1 10^3/ul (0.3-0.9); MONOCYTES % 8.2 % (0.0-11.0); NEUTROPHIL # 8.2 10^3/ul (1.6-7.5); NEUTROPHILS % 60.8 % (39.0-77.0); NUCLEATED RED BLOOD CELLS% 0.2 /100WBC (0.0-0.0); PLATELET COUNT 197 10^3/UL (140-415); RED CELL DISTRIBUTION WIDTH 17.5 % (11.5-14.5)
[2018-02-07 09:16] LABS: ANION GAP 9 (5-13); BLOOD UREA NITROGEN 18 mg/dl (7-20); CALCIUM 8.6 mg/dl (8.4-10.2); CARBON DIOXIDE 26 mmol/L (21-31); CHLORIDE 100 mmol/L (97-110); CREATININE 0.93 mg/dl (0.44-1.00); Estimated GFR > 60 mL/min (>60); GLUCOSE 107 mg/dl (70-220); POTASSIUM 4.2 mmol/L (3.5-5.1); SODIUM 135 mmol/L (135-144)
[2018-02-07] MEDS: FUROSEMIDE 20 MG TAB PO (10:29)
[2018-02-07] MEDS: FOLIC ACID 1 MG TAB PO (10:29)
[2018-02-07] MEDS: HYDROXYUREA 500 MG CAP PO ×2 (10:45→20:46)
[2018-02-07] MEDS: SOD CHLORIDE 0.45% 1,000 ML IV ×2 (13:30→17:10)
[2018-02-07] MEDS: DEFERASIROX 360 MG PO (20:46)
[2018-02-07] MEDS: ONDANSETRON 4 MG INJ IV (22:22)
[2018-02-08] MEDS: DIPHENHYDRAMINE 50 MG INJ IV ×6 (02:17→22:56)
[2018-02-08] MEDS: morphine 10 MG INJ IV ×6 (02:17→22:56)
[2018-02-08] MEDS: CIPROFLOXACIN 400MG/D5W 200 ML IVPB ×2 (05:43→17:58)
[2018-02-08] MEDS: FOLIC ACID 1 MG TAB PO (10:52)
[2018-02-08] MEDS: HYDROXYUREA 500 MG CAP PO ×2 (11:01→20:43)
[2018-02-08] MEDS: FUROSEMIDE 20 MG TAB PO (11:02)
[2018-02-08] MEDS: ONDANSETRON 4 MG INJ IV (14:54)
[2018-02-08] MEDS: LIDOCAINE 4% CR TOP (17:58)
[2018-02-08] MEDS: ALTEPLASE (CATHFLO) 2 MG INJ CATHETER (19:06)
[2018-02-08] MEDS: DEFERASIROX 360 MG PO (20:41)
[2018-02-08] MEDS: SOD CHLORIDE 0.45% 1,000 ML IV ×2 (20:43→22:50)
[2018-02-08 21:13] LABS: ADD MAN DIFF? NO
[2018-02-08 21:21] LABS: BASOPHIL # 0.1 10^3/ul (0.0-0.1); BASOPHILS % 1.2 % (0.0-2.0); EOSINOPHILS # 0.5 10^3/ul (0.0-0.5); EOSINOPHILS % 5.2 % (0.0-7.0); HEMATOCRIT 23.6 % (37.0-47.0); HEMOGLOBIN 7.7 g/dl (12.0-16.0); LYMPHOCYTES # 4.1 10^3/ul (0.8-2.9); LYMPHOCYTES % 39.6 % (15.0-51.0); MEAN CORPUSCULAR HEMOGLOBIN 28.6 pg (29.0-33.0); MEAN CORPUSCULAR HGB CONC 32.6 g/dl (32.0-37.0); MEAN CORPUSCULAR VOLUME 87.7 fl (82.0-101.0); MEAN PLATELET VOLUME 11.1 fl (7.4-10.4); MONOCYTES % 9.6 % (0.0-11.0); NEUTROPHIL # 4.6 10^3/ul (1.6-7.5); NEUTROPHILS % 44.1 % (39.0-77.0); NUCLEATED RED BLOOD CELLS% 0.3 /100WBC (0.0-0.0); PLATELET COUNT 233 10^3/UL (140-415); RED BLOOD COUNT 2.69 10^6/ul (4.20-5.40); RED CELL DISTRIBUTION WIDTH 17.6 % (11.5-14.5)
[2018-02-08 21:21] LABS: WHITE BLOOD COUNT 10.4 10^3/ul (4.8-10.8)
[2018-02-08 21:38] LABS: ANION GAP 7 (5-13); BLOOD UREA NITROGEN 11 mg/dl (7-20); CALCIUM 8.6 mg/dl (8.4-10.2); CARBON DIOXIDE 26 mmol/L (21-31); CHLORIDE 105 mmol/L (97-110); CREATININE 0.94 mg/dl (0.44-1.00); Estimated GFR > 60 mL/min (>60); GLUCOSE 112 mg/dl (70-220); POTASSIUM 4.5 mmol/L (3.5-5.1); SODIUM 138 mmol/L (135-144)
[2018-02-09] MEDS: DIPHENHYDRAMINE 50 MG INJ IV ×5 (03:01→20:26)
[2018-02-09] MEDS: ONDANSETRON 4 MG INJ IV ×3 (03:01→20:17)
[2018-02-09] MEDS: morphine 10 MG INJ IV ×5 (03:02→20:17)
[2018-02-09] MEDS: CIPROFLOXACIN 400MG/D5W 200 ML IVPB ×2 (05:36→17:18)
[2018-02-09 06:06] LABS: ADD MAN DIFF? NO
[2018-02-09 06:07] LABS: WHITE BLOOD COUNT 10.7 10^3/ul (4.8-10.8)
[2018-02-09 06:07] LABS: BASOPHIL # 0.1 10^3/ul (0.0-0.1); BASOPHILS % 1.2 % (0.0-2.0); EOSINOPHILS # 0.8 10^3/ul (0.0-0.5); EOSINOPHILS % 7.4 % (0.0-7.0); HEMATOCRIT 24.3 % (37.0-47.0); LYMPHOCYTES # 4.7 10^3/ul (0.8-2.9); LYMPHOCYTES % 43.9 % (15.0-51.0); MEAN CORPUSCULAR HEMOGLOBIN 29.4 pg (29.0-33.0); MEAN CORPUSCULAR HGB CONC 32.9 g/dl (32.0-37.0); MEAN CORPUSCULAR VOLUME 89.3 fl (82.0-101.0); MONOCYTE # 1.2 10^3/ul (0.3-0.9); MONOCYTES % 11.3 % (0.0-11.0); NEUTROPHIL # 3.8 10^3/ul (1.6-7.5); NEUTROPHILS % 35.9 % (39.0-77.0); NUCLEATED RED BLOOD CELLS% 0.2 /100WBC (0.0-0.0); PLATELET COUNT 255 10^3/UL (140-415); RED BLOOD COUNT 2.72 10^6/ul (4.20-5.40); RED CELL DISTRIBUTION WIDTH 17.7 % (11.5-14.5)
[2018-02-09 06:43] LABS: ANION GAP 9 (5-13); BLOOD UREA NITROGEN 14 mg/dl (7-20); CALCIUM 8.7 mg/dl (8.4-10.2); CARBON DIOXIDE 26 mmol/L (21-31); CHLORIDE 103 mmol/L (97-110); CREATININE 0.88 mg/dl (0.44-1.00); Estimated GFR > 60 mL/min (>60); GLUCOSE 102 mg/dl (70-220); POTASSIUM 4.4 mmol/L (3.5-5.1); SODIUM 138 mmol/L (135-144)
[2018-02-09] MEDS: FUROSEMIDE 20 MG TAB PO (08:47)
[2018-02-09] MEDS: FOLIC ACID 1 MG TAB PO (08:47)
[2018-02-09] MEDS: HYDROXYUREA 500 MG CAP PO ×2 (08:51→20:21)
[2018-02-09] MEDS: SOD CHLORIDE 0.45% 1,000 ML IV ×2 (15:30→18:35)
[2018-02-09] MEDS: DEFERASIROX 360 MG PO (20:18)
[2018-02-10] MEDS: ONDANSETRON 4 MG INJ IV ×3 (00:35→12:25)
[2018-02-10] MEDS: DIPHENHYDRAMINE 50 MG INJ IV ×6 (00:35→20:39)
[2018-02-10] MEDS: morphine 10 MG INJ IV ×6 (00:36→20:33)
[2018-02-10] MEDS: CIPROFLOXACIN 400MG/D5W 200 ML IVPB ×2 (05:24→18:14)
[2018-02-10] MEDS: SOD CHLORIDE 0.45% 1,000 ML IV ×2 (08:10→16:40)
[2018-02-10] MEDS: FOLIC ACID 1 MG TAB PO (08:30)
[2018-02-10] MEDS: FUROSEMIDE 20 MG TAB PO (08:30)
[2018-02-10] MEDS: HYDROXYUREA 500 MG CAP PO ×2 (08:37→23:34)
[2018-02-10 09:47] LABS: ADD MAN DIFF? NO
[2018-02-10 09:52] LABS: WHITE BLOOD COUNT 10.8 10^3/ul (4.8-10.8)
[2018-02-10 09:52] LABS: BASOPHIL # 0.1 10^3/ul (0.0-0.1); BASOPHILS % 0.9 % (0.0-2.0); EOSINOPHILS # 0.6 10^3/ul (0.0-0.5); EOSINOPHILS % 5.9 % (0.0-7.0); HEMATOCRIT 24.2 % (37.0-47.0); HEMOGLOBIN 7.9 g/dl (12.0-16.0); LYMPHOCYTES # 3.7 10^3/ul (0.8-2.9); LYMPHOCYTES % 33.9 % (15.0-51.0); MEAN CORPUSCULAR HEMOGLOBIN 28.7 pg (29.0-33.0); MEAN CORPUSCULAR HGB CONC 32.6 g/dl (32.0-37.0); MEAN PLATELET VOLUME 10.6 fl (7.4-10.4); MONOCYTES % 9.4 % (0.0-11.0); NEUTROPHIL # 5.3 10^3/ul (1.6-7.5); NEUTROPHILS % 49.4 % (39.0-77.0); NUCLEATED RED BLOOD CELLS% 0.4 /100WBC (0.0-0.0); PLATELET COUNT 275 10^3/UL (140-415); RED BLOOD COUNT 2.75 10^6/ul (4.20-5.40); RED CELL DISTRIBUTION WIDTH 17.5 % (11.5-14.5)
[2018-02-10 11:05] LABS: ANISOCYTOSIS 1+ (0-0); BAND NEUTROPHILS #M 0.1 10^3/ul (0.0-0.6); BAND NEUTROPHILS % (M) 1 % (0-4); BASOPHIL #M 0.2 10^3/ul (0.0-0.0); BASOPHILS % (M) 2 % (0-2); BURR CELLS 1+ (0-0); EOSINOPHILS % (M) 2 % (0-7); ERYTHROBLAST% (NRBC) (M) 1 % (0-0); HYPOCHROMASIA 1+ (0-0); LYMPHOCYTES #M 3.3 10^3/ul (0.8-2.9); LYMPHOCYTES % (M) 31 % (15-51); MONOCYTE #M 0.8 10^3/ul (0.3-0.9); MONOCYTES % (M) 8 % (0-11); PLATELET ESTIMATE NORMAL; POLYCHROMASIA 1+ (0-0); SEGMENTED NEUTROPHILS (M) % 55 % (39-77); SMUDGE%M 6 % (0-0); TARGET CELLS 1+ (0-0)
[2018-02-10 11:29] LABS: ANION GAP 9 (5-13); BLOOD UREA NITROGEN 10 mg/dl (7-20); CALCIUM 8.7 mg/dl (8.4-10.2); CARBON DIOXIDE 24 mmol/L (21-31); CHLORIDE 104 mmol/L (97-110); CREATININE 0.84 mg/dl (0.44-1.00); Estimated GFR > 60 mL/min (>60); GLUCOSE 108 mg/dl (70-220); POTASSIUM 4.5 mmol/L (3.5-5.1); SODIUM 137 mmol/L (135-144)
[2018-02-10] MEDS: DEFERASIROX 360 MG PO (23:31)
[2018-02-11] MEDS: DIPHENHYDRAMINE 50 MG INJ IV ×6 (00:36→21:57)
[2018-02-11] MEDS: morphine 10 MG INJ IV ×6 (00:36→21:58)
[2018-02-11] MEDS: SOD CHLORIDE 0.45% 1,000 ML IV ×2 (00:50→17:30)
[2018-02-11] MEDS: CIPROFLOXACIN 400MG/D5W 200 ML IVPB ×2 (06:00→17:53)
[2018-02-11] MEDS ORDERED: morphine LIQ (10 MG/5 ML) CUP PO (09:30)
[2018-02-11] MEDS: HYDROXYUREA 500 MG CAP PO ×2 (10:50→21:56)
[2018-02-11] MEDS: FUROSEMIDE 20 MG TAB PO (10:53)
[2018-02-11] MEDS: FOLIC ACID 1 MG TAB PO (10:53)
[2018-02-11] MEDS: GENTAMICIN 0.3% 5 ML OPH LEFT EYE ×2 (13:30→21:53)
[2018-02-11 14:40] LABS: WHITE BLOOD COUNT 10.9 10^3/ul (4.8-10.8)
[2018-02-11 14:40] LABS: ADD MAN DIFF? NO; BASOPHIL # 0.2 10^3/ul (0.0-0.1); BASOPHILS % 1.5 % (0.0-2.0); EOSINOPHILS # 0.8 10^3/ul (0.0-0.5); EOSINOPHILS % 7.4 % (0.0-7.0); HEMATOCRIT 25.8 % (37.0-47.0); HEMOGLOBIN 8.5 g/dl (12.0-16.0); LYMPHOCYTES # 4.5 10^3/ul (0.8-2.9); LYMPHOCYTES % 41.3 % (15.0-51.0); MEAN CORPUSCULAR HEMOGLOBIN 28.9 pg (29.0-33.0); MEAN CORPUSCULAR HGB CONC 32.9 g/dl (32.0-37.0); MEAN CORPUSCULAR VOLUME 87.8 fl (82.0-101.0); MONOCYTE # 1.1 10^3/ul (0.3-0.9); MONOCYTES % 9.7 % (0.0-11.0); NEUTROPHIL # 4.3 10^3/ul (1.6-7.5); NEUTROPHILS % 39.5 % (39.0-77.0); NUCLEATED RED BLOOD CELLS% 0.4 /100WBC (0.0-0.0); PLATELET COUNT 284 10^3/UL (140-415); RED BLOOD COUNT 2.94 10^6/ul (4.20-5.40); RED CELL DISTRIBUTION WIDTH 17.4 % (11.5-14.5)
[2018-02-11 15:11] LABS: ANION GAP 11 (5-13); BLOOD UREA NITROGEN 13 mg/dl (7-20); CALCIUM 9.2 mg/dl (8.4-10.2); CARBON DIOXIDE 24 mmol/L (21-31); CHLORIDE 101 mmol/L (97-110); CREATININE 0.89 mg/dl (0.44-1.00); Estimated GFR > 60 mL/min (>60); GLUCOSE 101 mg/dl (70-220); POTASSIUM 4.6 mmol/L (3.5-5.1); SODIUM 136 mmol/L (135-144)
[2018-02-11] MEDS: DEFERASIROX 360 MG PO (21:53)
[2018-02-11] MEDS: HEPARIN (100 UNITS/ML) 5 ML SYG CATHETER (22:31)
== END 2018-02-11 22:55 | disposition home health service (06) | DRG 252 ==
LOC: 6WM 22:02 → E/R 17:15 → 2NE 01-26 14:14 → 6WM 20:53
PROC: 027V3ZZ Dilation of Superior Vena Cava, Percutaneous Approach (ICD-10-PCS; principal; 2018-02-04 13:32)
PROC: 057M3ZZ Dilation of Right Internal Jugular Vein, Percutaneous Approach (ICD-10-PCS; 2018-02-04 13:32)
PROC: 05793ZZ Dilation of Right Brachial Vein, Percutaneous Approach (ICD-10-PCS; 2018-02-04 13:32)
PROC: 0JH60WZ Insertion of Totally Implantable Vascular Access Device into Chest Subcutaneous Tissue and Fascia, Open Approach (ICD-10-PCS; 2018-02-04 13:32)
PROC: B24BZZ4 Ultrasonography of Heart with Aorta, Transesophageal (ICD-10-PCS; 2018-02-04 13:32)
PROC: 02HV33Z Insertion of Infusion Device into Superior Vena Cava, Percutaneous Approach (ICD-10-PCS; 2018-02-04 13:32)
PROC: 0JPT0WZ Removal of Totally Implantable Vascular Access Device from Trunk Subcutaneous Tissue and Fascia, Open Approach (ICD-10-PCS; 2018-02-04 13:32)
PROC: 30233N1 Transfusion of Nonautologous Red Blood Cells into Peripheral Vein, Percutaneous Approach (ICD-10-PCS; 2018-02-04 13:32)
PROC: 02PY33Z Removal of Infusion Device from Great Vessel, Percutaneous Approach (ICD-10-PCS; 2018-02-04 13:32)
PROC: 02HV33Z Insertion of Infusion Device into Superior Vena Cava, Percutaneous Approach (ICD-10-PCS; 2018-02-04 13:32)
DX: T80.211A Bloodstream infection due to central venous catheter, initial encounter (principal); D57.00 Hb-SS disease with crisis, unspecified; J18.9 Pneumonia, unspecified organism; A41.50 Gram-negative sepsis, unspecified; I87.1 Compression of vein; E83.111 Hemochromatosis due to repeated red blood cell transfusions; K76.0 Fatty (change of) liver, not elsewhere classified; N76.0 Acute vaginitis; Z86.711 Personal history of pulmonary embolism; R59.1 Generalized enlarged lymph nodes; B37.3 Candidiasis of vulva and vagina
CPT/HCPCS: 36415; 36430; 37248; 37249; 70491; 71045; 74177; 76937; 80048; 80053; 81003; 82728; 83605; 83690; 84484; 84703; 85025; 85045; 85610; 85730; 86644; 86850; 86900; 86901; 86920; 86945; 87040; 87075; 87086; 90686; 93005; 93306; 93312; 93325; 96374; 96375; 96376; 99291-25

== ENCOUNTER 2018-02-15 15:59 | Emergency (ER) | payer OTHER ==
[2018-02-15 18:04] LABS: ADD MAN DIFF? NO
[2018-02-15 18:06] LABS: WHITE BLOOD COUNT 12.9 10^3/ul (4.8-10.8)
[2018-02-15 18:06] LABS: ABNORMAL IP MESSAGE 1; BASOPHIL # 0.2 10^3/ul (0.0-0.1); BASOPHILS % 1.2 % (0.0-2.0); EOSINOPHILS # 0.5 10^3/ul (0.0-0.5); EOSINOPHILS % 3.6 % (0.0-7.0); HEMATOCRIT 26.2 % (37.0-47.0); HEMOGLOBIN 8.8 g/dl (12.0-16.0); LYMPHOCYTES # 4.9 10^3/ul (0.8-2.9); LYMPHOCYTES % 37.5 % (15.0-51.0); MEAN CORPUSCULAR HEMOGLOBIN 28.9 pg (29.0-33.0); MEAN CORPUSCULAR HGB CONC 33.6 g/dl (32.0-37.0); MEAN CORPUSCULAR VOLUME 86.2 fl (82.0-101.0); MEAN PLATELET VOLUME 10.5 fl (7.4-10.4); MONOCYTE # 1.6 10^3/ul (0.3-0.9); MONOCYTES % 12.7 % (0.0-11.0); NEUTROPHIL # 5.8 10^3/ul (1.6-7.5); NEUTROPHILS % 44.5 % (39.0-77.0); NUCLEATED RED BLOOD CELLS% 0.3 /100WBC (0.0-0.0); PLATELET COUNT 390 10^3/UL (140-415); RED BLOOD COUNT 3.04 10^6/ul (4.20-5.40); RED CELL DISTRIBUTION WIDTH 17.4 % (11.5-14.5)
[2018-02-15 18:11] LABS: POSITIVE DIFF @See below
[2018-02-15 18:27] LABS: ANION GAP 14 (5-13); BLOOD UREA NITROGEN 12 mg/dl (7-20); CALCIUM 9.4 mg/dl (8.4-10.2); CARBON DIOXIDE 23 mmol/L (21-31); CHLORIDE 105 mmol/L (97-110); CREATININE 0.64 mg/dl (0.44-1.00); Estimated GFR > 60 mL/min (>60); GLUCOSE 100 mg/dl (70-220); POTASSIUM 4.2 mmol/L (3.5-5.1); SODIUM 142 mmol/L (135-144)
== END 2018-02-15 19:07 | disposition home or self-care (01) ==
LOC: E/R 15:59
DX: G89.4 Chronic pain syndrome (principal); F11.29 Opioid dependence with unspecified opioid-induced disorder
CPT/HCPCS: 80048; 85025; 99283

== ENCOUNTER 2018-02-25 17:39 | Inpatient (IN) | payer OTHER ==
[2018-02-25 19:00] LABS: ADD MAN DIFF? NO
[2018-02-25] MEDS: ONDANSETRON 4 MG INJ IV ×2 (19:04→22:13)
[2018-02-25] MEDS: NALBUPHINE HCL (10 MG/1 ML) INJ IV ×2 (19:04→19:11)
[2018-02-25] MEDS: DIPHENHYDRAMINE 50 MG INJ IV ×2 (19:04→22:13)
[2018-02-25 19:08] LABS: ABNORMAL IP MESSAGE 1; BASOPHIL # 0.1 10^3/ul (0.0-0.1); BASOPHILS % 0.5 % (0.0-2.0); EOSINOPHILS # 0.4 10^3/ul (0.0-0.5); EOSINOPHILS % 1.9 % (0.0-7.0); HEMATOCRIT 22.7 % (37.0-47.0); HEMOGLOBIN 7.8 g/dl (12.0-16.0); LYMPHOCYTES # 4.3 10^3/ul (0.8-2.9); LYMPHOCYTES % 21.2 % (15.0-51.0); MEAN CORPUSCULAR HEMOGLOBIN 30.4 pg (29.0-33.0); MEAN CORPUSCULAR HGB CONC 34.4 g/dl (32.0-37.0); MEAN CORPUSCULAR VOLUME 88.3 fl (82.0-101.0); MEAN PLATELET VOLUME 10.7 fl (7.4-10.4); MONOCYTE # 1.9 10^3/ul (0.3-0.9); MONOCYTES % 9.2 % (0.0-11.0); NEUTROPHIL # 13.3 10^3/ul (1.6-7.5); NEUTROPHILS % 66.3 % (39.0-77.0); NUCLEATED RED BLOOD CELLS # 0.2 10^3/ul (0.0-0.0); NUCLEATED RED BLOOD CELLS% 1.1 /100WBC (0.0-0.0); PLATELET COUNT 290 10^3/UL (140-415); RED BLOOD COUNT 2.57 10^6/ul (4.20-5.40); RETICULOCYTE COUNT # 0.299 X10^6 (0.020-0.110); RETICULOCYTE COUNT % 11.6 % (0.5-1.5); RETICULOCYTE RBC 2.57
[2018-02-25 19:08] LABS: WHITE BLOOD COUNT 20.2 10^3/ul (4.8-10.8)
[2018-02-25 19:12] LABS: POSITIVE DIFF @See below
[2018-02-25 19:34] LABS: ALANINE AMINOTRANSFERASE 151 IU/L (13-69); ALBUMIN 4.1 g/dl (3.3-4.9); ALBUMIN/GLOBULIN RATIO 1.13; ALKALINE PHOSPHATASE 141 IU/L (42-121); ANION GAP 11 (5-13); ASPARTATE AMINO TRANSFERASE 128 IU/L (15-46); BILIRUBIN,INDIRECT 1.7 mg/dl (0-1.1); BILIRUBIN,TOTAL 1.7 mg/dl (0.2-1.3); BLOOD UREA NITROGEN 16 mg/dl (7-20); CARBON DIOXIDE 27 mmol/L (21-31); CHLORIDE 105 mmol/L (97-110); CREATININE 0.58 mg/dl (0.44-1.00); Estimated GFR > 60 mL/min (>60); GLUCOSE 98 mg/dl (70-220); POTASSIUM 4.4 mmol/L (3.5-5.1); SODIUM 143 mmol/L (135-144); TOTAL PROTEIN 7.7 g/dl (6.1-8.1)
[2018-02-25 19:46] LABS: TROPONIN-I 0.013 ng/ml (0.000-0.120)
[2018-02-25] MEDS: morphine 10 MG INJ IV (20:21)
[2018-02-25] MEDS: morphine 4 MG/ML VIAL IV (22:12)
[2018-02-25] MEDS ORDERED: ONDANSETRON 4 MG INJ IV (23:30)
[2018-02-26] MEDS ORDERED: DIPHENHYDRAMINE 50 MG INJ IV
[2018-02-26] MEDS ORDERED: NACL 0.9% 3 ML SYG IV
[2018-02-26] MEDS ORDERED: morphine 2 MG INJ IV
[2018-02-26] MEDS: SOD CHLORIDE 0.9% 1,000 ML IV ×4 (01:07→19:43)
[2018-02-26] MEDS: DIPHENHYDRAMINE 50 MG INJ IV ×6 (02:02→22:20)
[2018-02-26] MEDS: FUROSEMIDE 20 MG TAB PO ×2 (02:12→18:09)
[2018-02-26] MEDS: morphine 10 MG INJ IV ×6 (02:32→22:19)
[2018-02-26] MEDS ORDERED: morphine 10 MG INJ IV (04:00)
[2018-02-26 05:06] LABS: ADD MAN DIFF? NO
[2018-02-26 05:46] LABS: ALANINE AMINOTRANSFERASE 133 IU/L (13-69); ALBUMIN 3.8 g/dl (3.3-4.9); ALBUMIN/GLOBULIN RATIO 1.11; ALKALINE PHOSPHATASE 106 IU/L (42-121); ANION GAP 16 (5-13); ASPARTATE AMINO TRANSFERASE 110 IU/L (15-46); BILIRUBIN,INDIRECT 1.7 mg/dl (0-1.1); BILIRUBIN,TOTAL 1.7 mg/dl (0.2-1.3); BLOOD UREA NITROGEN 13 mg/dl (7-20); CALCIUM 8.5 mg/dl (8.4-10.2); CARBON DIOXIDE 28 mmol/L (21-31); CHLORIDE 98 mmol/L (97-110); CREATININE 0.85 mg/dl (0.44-1.00); Estimated GFR > 60 mL/min (>60); GLUCOSE 79 mg/dl (70-220); POTASSIUM 4.5 mmol/L (3.5-5.1); SODIUM 142 mmol/L (135-144); TOTAL PROTEIN 7.2 g/dl (6.1-8.1)
[2018-02-26 06:00] LABS: WHITE BLOOD COUNT 15.6 10^3/ul (4.8-10.8)
[2018-02-26 06:00] LABS: BASOPHIL # 0.1 10^3/ul (0.0-0.1); BASOPHILS % 0.5 % (0.0-2.0); EOSINOPHILS # 0.3 10^3/ul (0.0-0.5); EOSINOPHILS % 2.1 % (0.0-7.0); HEMOGLOBIN 7.3 g/dl (12.0-16.0); LYMPHOCYTES # 3.6 10^3/ul (0.8-2.9); LYMPHOCYTES % 23.4 % (15.0-51.0); MEAN CORPUSCULAR HEMOGLOBIN 30.4 pg (29.0-33.0); MEAN CORPUSCULAR HGB CONC 34.8 g/dl (32.0-37.0); MEAN CORPUSCULAR VOLUME 87.5 fl (82.0-101.0); MEAN PLATELET VOLUME 10.7 fl (7.4-10.4); MONOCYTE # 1.1 10^3/ul (0.3-0.9); NEUTROPHIL # 10.2 10^3/ul (1.6-7.5); NEUTROPHILS % 65.8 % (39.0-77.0); NUCLEATED RED BLOOD CELLS # 0.1 10^3/ul (0.0-0.0); NUCLEATED RED BLOOD CELLS% 0.8 /100WBC (0.0-0.0); PLATELET COUNT 240 10^3/UL (140-415); RED CELL DISTRIBUTION WIDTH 18.5 % (11.5-14.5)
[2018-02-26 06:31] LABS: HEMOGLOBIN A1C 6.4 % (0-5.9)
[2018-02-26] MEDS: FAMOTIDINE 20 MG INJ IV ×2 (10:02→22:19)
[2018-02-26] MEDS: ENOXAPARIN 30 MG/0.3 ML SYG SC (10:04)
[2018-02-26 11:02] LABS: IMMEDIATE SPIN CROSSMATCH 1 2
[2018-02-26] MEDS: ACETAMINOPHEN 325 MG TAB PO (11:23)
[2018-02-26] MEDS: ONDANSETRON 4 MG INJ IV ×2 (14:58→22:20)
[2018-02-27] MEDS: SOD CHLORIDE 0.9% 1,000 ML IV ×3 (02:06→20:13)
[2018-02-27] MEDS: morphine 10 MG INJ IV ×6 (02:06→22:32)
[2018-02-27] MEDS: DIPHENHYDRAMINE 50 MG INJ IV ×6 (02:06→22:32)
[2018-02-27 04:57] LABS: ADD MAN DIFF? NO
[2018-02-27 05:11] LABS: WHITE BLOOD COUNT 13.8 10^3/ul (4.8-10.8)
[2018-02-27 05:11] LABS: BASOPHIL # 0.1 10^3/ul (0.0-0.1); BASOPHILS % 0.8 % (0.0-2.0); EOSINOPHILS # 0.6 10^3/ul (0.0-0.5); EOSINOPHILS % 4.6 % (0.0-7.0); HEMATOCRIT 24.5 % (37.0-47.0); HEMOGLOBIN 8.6 g/dl (12.0-16.0); LYMPHOCYTES # 4.4 10^3/ul (0.8-2.9); LYMPHOCYTES % 31.9 % (15.0-51.0); MEAN CORPUSCULAR HEMOGLOBIN 30.4 pg (29.0-33.0); MEAN CORPUSCULAR HGB CONC 35.1 g/dl (32.0-37.0); MEAN CORPUSCULAR VOLUME 86.6 fl (82.0-101.0); MONOCYTE # 1.5 10^3/ul (0.3-0.9); MONOCYTES % 10.7 % (0.0-11.0); NEUTROPHILS % 50.8 % (39.0-77.0); NUCLEATED RED BLOOD CELLS # 0.2 10^3/ul (0.0-0.0); NUCLEATED RED BLOOD CELLS% 1.1 /100WBC (0.0-0.0); PLATELET COUNT 260 10^3/UL (140-415); RED BLOOD COUNT 2.83 10^6/ul (4.20-5.40); RED CELL DISTRIBUTION WIDTH 17.2 % (11.5-14.5)
[2018-02-27 05:41] LABS: ANION GAP 12 (5-13); BLOOD UREA NITROGEN 16 mg/dl (7-20); CALCIUM 8.9 mg/dl (8.4-10.2); CARBON DIOXIDE 27 mmol/L (21-31); CHLORIDE 103 mmol/L (97-110); CREATININE 0.96 mg/dl (0.44-1.00); Estimated GFR > 60 mL/min (>60); GLUCOSE 117 mg/dl (70-220); POTASSIUM 4.7 mmol/L (3.5-5.1); SODIUM 142 mmol/L (135-144)
[2018-02-27] MEDS: FUROSEMIDE 20 MG TAB PO ×2 (06:21→18:36)
[2018-02-27] MEDS: ONDANSETRON 4 MG INJ IV ×2 (06:23→22:32)
[2018-02-27] MEDS: FAMOTIDINE 20 MG TAB PO ×2 (09:51→20:12)
[2018-02-27] MEDS: ENOXAPARIN 30 MG/0.3 ML SYG SC (09:56)
[2018-02-28] MEDS: SOD CHLORIDE 0.9% 1,000 ML IV ×4 (01:43→21:43)
[2018-02-28] MEDS: ZOLPIDEM 5 MG TAB PO (02:04)
[2018-02-28] MEDS: DIPHENHYDRAMINE 50 MG INJ IV ×5 (02:31→22:02)
[2018-02-28] MEDS: morphine 10 MG INJ IV ×5 (02:31→22:01)
[2018-02-28] MEDS ORDERED: VITAMIN A & D 5 GM OINT PACKET TOP (02:46)
[2018-02-28 05:03] LABS: ADD MAN DIFF? NO
[2018-02-28] MEDS: FUROSEMIDE 20 MG TAB PO ×2 (05:07→18:22)
[2018-02-28 05:11] LABS: WHITE BLOOD COUNT 12.1 10^3/ul (4.8-10.8)
[2018-02-28 05:11] LABS: ABNORMAL IP MESSAGE 1; BASOPHIL # 0.1 10^3/ul (0.0-0.1); EOSINOPHILS # 0.8 10^3/ul (0.0-0.5); EOSINOPHILS % 6.5 % (0.0-7.0); HEMATOCRIT 22.5 % (37.0-47.0); HEMOGLOBIN 7.8 g/dl (12.0-16.0); LYMPHOCYTES # 5.3 10^3/ul (0.8-2.9); LYMPHOCYTES % 44.3 % (15.0-51.0); MEAN CORPUSCULAR HEMOGLOBIN 30.5 pg (29.0-33.0); MEAN CORPUSCULAR HGB CONC 34.7 g/dl (32.0-37.0); MEAN CORPUSCULAR VOLUME 87.9 fl (82.0-101.0); MEAN PLATELET VOLUME 10.7 fl (7.4-10.4); MONOCYTE # 1.7 10^3/ul (0.3-0.9); MONOCYTES % 14.3 % (0.0-11.0); NEUTROPHILS % 32.8 % (39.0-77.0); NUCLEATED RED BLOOD CELLS # 0.2 10^3/ul (0.0-0.0); NUCLEATED RED BLOOD CELLS% 1.7 /100WBC (0.0-0.0); PLATELET COUNT 232 10^3/UL (140-415); RED BLOOD COUNT 2.56 10^6/ul (4.20-5.40); RED CELL DISTRIBUTION WIDTH 17.9 % (11.5-14.5)
[2018-02-28 05:17] LABS: POSITIVE DIFF @See below
[2018-02-28 05:23] LABS: ALANINE AMINOTRANSFERASE 106 IU/L (13-69); ALKALINE PHOSPHATASE 157 IU/L (42-121); ASPARTATE AMINO TRANSFERASE 94 IU/L (15-46); BILIRUBIN,INDIRECT 1.8 mg/dl (0-1.1); BILIRUBIN,TOTAL 1.8 mg/dl (0.2-1.3)
[2018-02-28 05:37] LABS: ANION GAP 6 (5-13); BLOOD UREA NITROGEN 16 mg/dl (7-20); CALCIUM 8.5 mg/dl (8.4-10.2); CARBON DIOXIDE 27 mmol/L (21-31); CHLORIDE 106 mmol/L (97-110); CREATININE 0.96 mg/dl (0.44-1.00); Estimated GFR > 60 mL/min (>60); GLUCOSE 117 mg/dl (70-220); POTASSIUM 4.1 mmol/L (3.5-5.1); SODIUM 139 mmol/L (135-144)
[2018-02-28] MEDS: FAMOTIDINE 20 MG TAB PO ×2 (09:14→21:59)
[2018-02-28] MEDS: ENOXAPARIN 30 MG/0.3 ML SYG SC (09:17)
[2018-02-28] MEDS: HYDROXYUREA 500 MG CAP PO ×2 (11:56→22:01)
[2018-02-28] MEDS: ONDANSETRON 4 MG INJ IV ×2 (14:19→22:02)
[2018-02-28] MEDS: BISACODYL (EC) 5 MG TAB PO (21:58)
[2018-02-28] MEDS: CIPROFLOXACIN 400MG/D5W 200 ML IVPB (22:02)
[2018-03-01] MEDS: DIPHENHYDRAMINE 50 MG INJ IV ×6 (01:48→22:01)
[2018-03-01] MEDS: morphine 10 MG INJ IV ×6 (01:48→22:01)
[2018-03-01 05:01] LABS: ADD MAN DIFF? NO
[2018-03-01 05:11] LABS: WHITE BLOOD COUNT 11.1 10^3/ul (4.8-10.8)
[2018-03-01 05:11] LABS: BASOPHIL # 0.1 10^3/ul (0.0-0.1); BASOPHILS % 0.7 % (0.0-2.0); EOSINOPHILS # 0.5 10^3/ul (0.0-0.5); EOSINOPHILS % 4.7 % (0.0-7.0); HEMATOCRIT 22.4 % (37.0-47.0); HEMOGLOBIN 7.6 g/dl (12.0-16.0); LYMPHOCYTES # 3.3 10^3/ul (0.8-2.9); LYMPHOCYTES % 29.9 % (15.0-51.0); MEAN CORPUSCULAR HEMOGLOBIN 29.9 pg (29.0-33.0); MEAN CORPUSCULAR HGB CONC 33.9 g/dl (32.0-37.0); MEAN CORPUSCULAR VOLUME 88.2 fl (82.0-101.0); MEAN PLATELET VOLUME 10.9 fl (7.4-10.4); MONOCYTE # 1.2 10^3/ul (0.3-0.9); MONOCYTES % 11.2 % (0.0-11.0); NEUTROPHIL # 5.8 10^3/ul (1.6-7.5); NEUTROPHILS % 52.5 % (39.0-77.0); NUCLEATED RED BLOOD CELLS # 0.2 10^3/ul (0.0-0.0); NUCLEATED RED BLOOD CELLS% 1.6 /100WBC (0.0-0.0); PLATELET COUNT 225 10^3/UL (140-415); RED BLOOD COUNT 2.54 10^6/ul (4.20-5.40)
[2018-03-01] MEDS: FUROSEMIDE 20 MG TAB PO ×2 (06:11→17:50)
[2018-03-01] MEDS: ONDANSETRON 4 MG INJ IV ×3 (06:12→17:51)
[2018-03-01] MEDS ORDERED: VITAMIN A & D 5 GM OINT PACKET TOP (06:19)
[2018-03-01] MEDS ORDERED: ONDANSETRON 4 MG INJ IV (06:30)
[2018-03-01] MEDS ORDERED: HYDROmorphONE 0.5 MG/0.5 ML SYG IV ×2 (06:30)
[2018-03-01] MEDS: CIPROFLOXACIN 400MG/D5W 200 ML IVPB ×2 (09:06→21:54)
[2018-03-01] MEDS: SOD CHLORIDE 0.9% 1,000 ML IV ×3 (09:06→21:54)
[2018-03-01] MEDS: HYDROXYUREA 500 MG CAP PO ×2 (10:00→21:56)
[2018-03-01] MEDS: ENOXAPARIN 30 MG/0.3 ML SYG SC (10:02)
[2018-03-01] MEDS: FAMOTIDINE 20 MG TAB PO ×2 (10:03→21:55)
[2018-03-01] MEDS: ACETAMINOPHEN 325 MG TAB PO ×2 (14:46→23:15)
[2018-03-01 23:33] LABS: IMMEDIATE SPIN CROSSMATCH 1 1
[2018-03-02] MEDS: ONDANSETRON 4 MG INJ IV ×3 (02:03→17:30)
[2018-03-02] MEDS: DIPHENHYDRAMINE 50 MG INJ IV ×4 (02:03→17:30)
[2018-03-02] MEDS: morphine 10 MG INJ IV ×5 (02:04→21:31)
[2018-03-02] MEDS: ZOLPIDEM 5 MG TAB PO (02:59)
[2018-03-02] MEDS: SOD CHLORIDE 0.9% 1,000 ML IV ×3 (03:29→23:43)
[2018-03-02] MEDS: FUROSEMIDE 20 MG TAB PO ×2 (05:16→18:09)
[2018-03-02] MEDS: FAMOTIDINE 20 MG TAB PO ×2 (09:26→21:21)
[2018-03-02] MEDS: metroNIDAZOLE 500 MG/NS (PMX) 100 ML IVPB ×2 (09:27→21:21)
[2018-03-02] MEDS: HYDROXYUREA 500 MG CAP PO ×2 (09:30→21:26)
[2018-03-02] MEDS: ENOXAPARIN 30 MG/0.3 ML SYG SC (09:32)
[2018-03-02 09:33] LABS: ADD MAN DIFF? NO
[2018-03-02 09:36] LABS: WHITE BLOOD COUNT 8.3 10^3/ul (4.8-10.8)
[2018-03-02 09:36] LABS: BASOPHIL # 0.1 10^3/ul (0.0-0.1); EOSINOPHILS # 0.5 10^3/ul (0.0-0.5); EOSINOPHILS % 5.9 % (0.0-7.0); HEMATOCRIT 27.4 % (37.0-47.0); HEMOGLOBIN 9.2 g/dl (12.0-16.0); LYMPHOCYTES # 2.6 10^3/ul (0.8-2.9); LYMPHOCYTES % 30.8 % (15.0-51.0); MEAN CORPUSCULAR HEMOGLOBIN 29.9 pg (29.0-33.0); MEAN CORPUSCULAR HGB CONC 33.6 g/dl (32.0-37.0); MEAN PLATELET VOLUME 10.5 fl (7.4-10.4); MONOCYTE # 1.1 10^3/ul (0.3-0.9); MONOCYTES % 13.8 % (0.0-11.0); NEUTROPHILS % 47.8 % (39.0-77.0); NUCLEATED RED BLOOD CELLS # 0.1 10^3/ul (0.0-0.0); NUCLEATED RED BLOOD CELLS% 1.5 /100WBC (0.0-0.0); PLATELET COUNT 224 10^3/UL (140-415); RED BLOOD COUNT 3.08 10^6/ul (4.20-5.40)
[2018-03-02 10:06] LABS: ANION GAP 7 (5-13); BLOOD UREA NITROGEN 8 mg/dl (7-20); CARBON DIOXIDE 31 mmol/L (21-31); CHLORIDE 103 mmol/L (97-110); CREATININE 0.78 mg/dl (0.44-1.00); Estimated GFR > 60 mL/min (>60); GLUCOSE 111 mg/dl (70-220); POTASSIUM 4.4 mmol/L (3.5-5.1); SODIUM 141 mmol/L (135-144)
[2018-03-03] MEDS: ONDANSETRON 4 MG INJ IV ×3 (01:32→17:27)
[2018-03-03] MEDS: morphine 10 MG INJ IV ×5 (01:33→21:34)
[2018-03-03] MEDS: DIPHENHYDRAMINE 50 MG INJ IV ×6 (01:55→21:31)
[2018-03-03] MEDS: FUROSEMIDE 20 MG TAB PO ×2 (05:40→17:28)
[2018-03-03] MEDS: ACETAMINOPHEN 325 MG TAB PO (06:37)
[2018-03-03] MEDS: metroNIDAZOLE 500 MG/NS (PMX) 100 ML IVPB ×2 (09:27→21:30)
[2018-03-03] MEDS: FAMOTIDINE 20 MG TAB PO ×2 (09:27→21:31)
[2018-03-03] MEDS: HYDROXYUREA 500 MG CAP PO ×2 (09:29→21:35)
[2018-03-03] MEDS: ENOXAPARIN 30 MG/0.3 ML SYG SC (09:30)
[2018-03-03] MEDS: SOD CHLORIDE 0.9% 1,000 ML IV ×3 (09:43→19:43)
[2018-03-03] MEDS: NEOMYC/POLYMYX/BACIT 30 GM OINT TOP (17:27)
[2018-03-03] MEDS: IBUPROFEN 200 MG TAB PO (17:42)
[2018-03-03] MEDS: AQUAPHOR 52.5 GM OINT TOP (21:31)
[2018-03-04] MEDS: morphine 10 MG INJ IV ×6 (01:30→21:48)
[2018-03-04] MEDS: ONDANSETRON 4 MG INJ IV ×2 (01:30→09:50)
[2018-03-04] MEDS: DIPHENHYDRAMINE 50 MG INJ IV ×6 (01:30→21:48)
[2018-03-04] MEDS: SOD CHLORIDE 0.9% 1,000 ML IV ×2 (05:43→15:43)
[2018-03-04] MEDS: FUROSEMIDE 20 MG TAB PO ×2 (05:43→17:51)
[2018-03-04] MEDS: metroNIDAZOLE 500 MG/NS (PMX) 100 ML IVPB ×2 (08:50→20:31)
[2018-03-04] MEDS: FAMOTIDINE 20 MG TAB PO ×2 (08:50→20:31)
[2018-03-04] MEDS: HYDROXYUREA 500 MG CAP PO ×2 (08:53→20:32)
[2018-03-04] MEDS: ENOXAPARIN 30 MG/0.3 ML SYG SC (08:54)
[2018-03-04] MEDS: AQUAPHOR 52.5 GM OINT TOP ×2 (08:55→20:31)
[2018-03-04] MEDS: DOCUSATE SODIUM 100 MG CAP PO ×2 (13:24→20:31)
[2018-03-04] MEDS: BISACODYL (EC) 5 MG TAB PO ×2 (13:24→16:47)
[2018-03-04 15:31] LABS: ADD MAN DIFF? NO
[2018-03-04 15:34] LABS: BASOPHIL # 0.1 10^3/ul (0.0-0.1); BASOPHILS % 0.8 % (0.0-2.0); EOSINOPHILS # 0.6 10^3/ul (0.0-0.5); EOSINOPHILS % 5.6 % (0.0-7.0); HEMOGLOBIN 8.7 g/dl (12.0-16.0); LYMPHOCYTES # 3.3 10^3/ul (0.8-2.9); LYMPHOCYTES % 31.8 % (15.0-51.0); MEAN CORPUSCULAR HEMOGLOBIN 29.6 pg (29.0-33.0); MEAN CORPUSCULAR HGB CONC 33.5 g/dl (32.0-37.0); MEAN CORPUSCULAR VOLUME 88.4 fl (82.0-101.0); MEAN PLATELET VOLUME 10.9 fl (7.4-10.4); MONOCYTES % 9.3 % (0.0-11.0); NEUTROPHIL # 5.4 10^3/ul (1.6-7.5); NUCLEATED RED BLOOD CELLS # 0.1 10^3/ul (0.0-0.0); PLATELET COUNT 189 10^3/UL (140-415); RED BLOOD COUNT 2.94 10^6/ul (4.20-5.40); RED CELL DISTRIBUTION WIDTH 17.8 % (11.5-14.5)
[2018-03-04 15:34] LABS: WHITE BLOOD COUNT 10.4 10^3/ul (4.8-10.8)
[2018-03-04 15:55] LABS: ANION GAP 7 (5-13); BLOOD UREA NITROGEN 15 mg/dl (7-20); CARBON DIOXIDE 31 mmol/L (21-31); CHLORIDE 99 mmol/L (97-110); CREATININE 1.02 mg/dl (0.44-1.00); Estimated GFR > 60 mL/min (>60); GLUCOSE 105 mg/dl (70-220); POTASSIUM 4.6 mmol/L (3.5-5.1); SODIUM 137 mmol/L (135-144)
[2018-03-05] MEDS: ONDANSETRON 4 MG INJ IV ×2 (01:53→10:27)
[2018-03-05] MEDS: DIPHENHYDRAMINE 50 MG INJ IV ×6 (01:53→22:36)
[2018-03-05] MEDS: morphine 10 MG INJ IV ×6 (01:54→22:37)
[2018-03-05] MEDS: SOD CHLORIDE 0.9% 1,000 ML IV ×3 (01:54→21:43)
[2018-03-05 05:09] LABS: ADD MAN DIFF? NO
[2018-03-05 05:21] LABS: WHITE BLOOD COUNT 10.9 10^3/ul (4.8-10.8)
[2018-03-05 05:21] LABS: BASOPHIL # 0.1 10^3/ul (0.0-0.1); BASOPHILS % 0.7 % (0.0-2.0); EOSINOPHILS # 0.7 10^3/ul (0.0-0.5); EOSINOPHILS % 6.6 % (0.0-7.0); HEMATOCRIT 26.4 % (37.0-47.0); HEMOGLOBIN 8.9 g/dl (12.0-16.0); LYMPHOCYTES # 4.6 10^3/ul (0.8-2.9); MEAN CORPUSCULAR HGB CONC 33.7 g/dl (32.0-37.0); MEAN CORPUSCULAR VOLUME 88.9 fl (82.0-101.0); MEAN PLATELET VOLUME 11.1 fl (7.4-10.4); MONOCYTE # 1.4 10^3/ul (0.3-0.9); MONOCYTES % 13.2 % (0.0-11.0); NEUTROPHILS % 36.9 % (39.0-77.0); NUCLEATED RED BLOOD CELLS # 0.1 10^3/ul (0.0-0.0); NUCLEATED RED BLOOD CELLS% 0.8 /100WBC (0.0-0.0); PLATELET COUNT 202 10^3/UL (140-415); RED BLOOD COUNT 2.97 10^6/ul (4.20-5.40); RED CELL DISTRIBUTION WIDTH 17.5 % (11.5-14.5)
[2018-03-05 05:33] LABS: ANION GAP 6 (5-13); BLOOD UREA NITROGEN 18 mg/dl (7-20); CALCIUM 9.1 mg/dl (8.4-10.2); CARBON DIOXIDE 31 mmol/L (21-31); CHLORIDE 101 mmol/L (97-110); CREATININE 0.92 mg/dl (0.44-1.00); Estimated GFR > 60 mL/min (>60); GLUCOSE 108 mg/dl (70-220); POTASSIUM 4.8 mmol/L (3.5-5.1); SODIUM 138 mmol/L (135-144)
[2018-03-05] MEDS: FUROSEMIDE 20 MG TAB PO ×2 (05:44→18:31)
[2018-03-05] MEDS: ENOXAPARIN 30 MG/0.3 ML SYG SC (10:22)
[2018-03-05] MEDS: HYDROXYUREA 500 MG CAP PO ×2 (10:22→22:34)
[2018-03-05] MEDS: FAMOTIDINE 20 MG TAB PO ×2 (10:26→21:06)
[2018-03-05] MEDS: DOCUSATE SODIUM 100 MG CAP PO ×2 (10:35→21:06)
[2018-03-05] MEDS: AQUAPHOR 52.5 GM OINT TOP ×2 (10:35→21:06)
[2018-03-05] MEDS: HEPARIN (100 UNITS/ML) 5 ML SYG CATHETER (22:45)
== END 2018-03-05 23:55 | disposition home or self-care (01) | DRG 812 ==
LOC: MS1 23:07 → E/R 17:39
PROC: 30233N1 Transfusion of Nonautologous Red Blood Cells into Peripheral Vein, Percutaneous Approach (ICD-10-PCS; principal; 2018-02-26)
DX: D57.00 Hb-SS disease with crisis, unspecified (principal); N39.0 Urinary tract infection, site not specified; R17 Unspecified jaundice; I87.1 Compression of vein; R65.10 Systemic inflammatory response syndrome (SIRS) of non-infectious origin without acute organ dysfunction; B96.89 Other specified bacterial agents as the cause of diseases classified elsewhere; D64.89 Other specified anemias
CPT/HCPCS: 36415; 36430; 71045; 80048; 80053; 80076; 82728; 83036; 84484; 85025; 85045; 86850; 86900; 86901; 86920; 86945; 87040; 87086; 93005; 96374; 96375; 96376; 99217; 99285-25

== ENCOUNTER 2018-03-18 11:08 | Inpatient (IN) | payer OTHER ==
[2018-03-18 12:41] LABS: ADD MAN DIFF? NO
[2018-03-18 12:51] LABS: BASOPHIL # 0.1 10^3/ul (0.0-0.1); BASOPHILS % 0.8 % (0.0-2.0); EOSINOPHILS # 0.3 10^3/ul (0.0-0.5); EOSINOPHILS % 1.9 % (0.0-7.0); HEMATOCRIT 24.1 % (37.0-47.0); HEMOGLOBIN 8.1 g/dl (12.0-16.0); LYMPHOCYTES # 3.3 10^3/ul (0.8-2.9); LYMPHOCYTES % 19.5 % (15.0-51.0); MEAN CORPUSCULAR HEMOGLOBIN 30.1 pg (29.0-33.0); MEAN CORPUSCULAR HGB CONC 33.6 g/dl (32.0-37.0); MEAN CORPUSCULAR VOLUME 89.6 fl (82.0-101.0); MEAN PLATELET VOLUME 10.8 fl (7.4-10.4); MONOCYTE # 1.4 10^3/ul (0.3-0.9); MONOCYTES % 8.6 % (0.0-11.0); NEUTROPHIL # 11.3 10^3/ul (1.6-7.5); NEUTROPHILS % 67.7 % (39.0-77.0); NUCLEATED RED BLOOD CELLS # 0.2 10^3/ul (0.0-0.0); NUCLEATED RED BLOOD CELLS% 1.3 /100WBC (0.0-0.0); PLATELET COUNT 429 10^3/UL (140-415); RED BLOOD COUNT 2.69 10^6/ul (4.20-5.40); RED CELL DISTRIBUTION WIDTH 18.1 % (11.5-14.5)
[2018-03-18 12:51] LABS: WHITE BLOOD COUNT 16.7 10^3/ul (4.8-10.8)
[2018-03-18 13:11] LABS: ADD UMIC YES; ALANINE AMINOTRANSFERASE 78 IU/L (13-69); ALBUMIN 4.6 g/dl (3.3-4.9); ALBUMIN/GLOBULIN RATIO 1.09; ALKALINE PHOSPHATASE 135 IU/L (42-121); ANION GAP 11 (5-13); ASPARTATE AMINO TRANSFERASE 89 IU/L (15-46); BILIRUBIN,INDIRECT 1.9 mg/dl (0-1.1); BILIRUBIN,TOTAL 1.9 mg/dl (0.2-1.3); BLOOD UREA NITROGEN 19 mg/dl (7-20); CALCIUM 9.4 mg/dl (8.4-10.2); CARBON DIOXIDE 26 mmol/L (21-31); CHLORIDE 103 mmol/L (97-110); Estimated GFR > 60 mL/min (>60); GLUCOSE 105 mg/dl (70-220); LIPASE 82 U/L (23-300); POTASSIUM 4.1 mmol/L (3.5-5.1); SODIUM 140 mmol/L (135-144); TOTAL PROTEIN 8.8 g/dl (6.1-8.1); UR ASCORBIC ACID NEGATIVE (NEGATIVE); UR BACTERIA FEW /HPF (NONE SEEN); UR BILIRUBIN (Dip) NEGATIVE (NEGATIVE); UR BLOOD (Dip) 1+ mg/dL (NEGATIVE); UR CLARITY CLEAR (CLEAR); UR COLOR YELLOW (YELLOW); UR GLUCOSE (Dip) NEGATIVE (NEGATIVE); UR KETONES (Dip) NEGATIVE (NEGATIVE); UR LEUKOCYTE ESTERASE (Dip) NEGATIVE Leu/ul (NEGATIVE); UR NITRITE (Dip) NEGATIVE (NEGATIVE); UR RBC 3 /HPF (0-5); UR SPECIFIC GRAVITY (Dip) 1.014 (1.003-1.030); UR SQUAMOUS EPITHELIAL CELL FEW /HPF (FEW); UR TOTAL PROTEIN (Dip) 1+ mg/dl (NEGATIVE); UR UROBILINOGEN (Dip) NEGATIVE (NEGATIVE); UR WBC 3 /HPF (0-5)
[2018-03-18] MEDS: DIPHENHYDRAMINE 50 MG INJ IV ×2 (13:20→20:16)
[2018-03-18] MEDS: ONDANSETRON 4 MG INJ IV ×3 (13:20→20:12)
[2018-03-18] MEDS: morphine 4 MG/ML VIAL IV ×2 (13:21→14:54)
[2018-03-18] MEDS: morphine 10 MG INJ IV (20:15)
[2018-03-18] MEDS: SENNA TAB PO (20:18)
[2018-03-18] MEDS: SOD CHLORIDE 0.45% 1,000 ML IV (20:18)
[2018-03-18] MEDS: HYDROXYUREA 500 MG CAP PO (21:15)
[2018-03-18] MEDS: ZOLPIDEM 5 MG TAB PO (22:21)
[2018-03-18] MEDS: JADENU 360 MG PO (23:30)
[2018-03-19] MEDS: morphine 10 MG INJ IV ×5 (00:10→20:11)
[2018-03-19] MEDS: ONDANSETRON 4 MG INJ IV ×4 (00:10→20:26)
[2018-03-19] MEDS: DIPHENHYDRAMINE 50 MG INJ IV ×5 (00:10→20:10)
[2018-03-19] MEDS: ACETAMINOPHEN 325 MG TAB PO ×3 (04:10→21:46)
[2018-03-19 05:18] LABS: ADD MAN DIFF? NO
[2018-03-19 05:24] LABS: BASOPHIL # 0.1 10^3/ul (0.0-0.1); BASOPHILS % 0.7 % (0.0-2.0); EOSINOPHILS # 0.2 10^3/ul (0.0-0.5); EOSINOPHILS % 1.4 % (0.0-7.0); HEMATOCRIT 24.5 % (37.0-47.0); HEMOGLOBIN 8.1 g/dl (12.0-16.0); LYMPHOCYTES # 2.5 10^3/ul (0.8-2.9); LYMPHOCYTES % 15.9 % (15.0-51.0); MEAN CORPUSCULAR HEMOGLOBIN 29.9 pg (29.0-33.0); MEAN CORPUSCULAR HGB CONC 33.1 g/dl (32.0-37.0); MEAN CORPUSCULAR VOLUME 90.4 fl (82.0-101.0); MEAN PLATELET VOLUME 10.7 fl (7.4-10.4); MONOCYTE # 1.1 10^3/ul (0.3-0.9); MONOCYTES % 6.9 % (0.0-11.0); NEUTROPHIL # 11.7 10^3/ul (1.6-7.5); NEUTROPHILS % 73.5 % (39.0-77.0); NUCLEATED RED BLOOD CELLS # 0.3 10^3/ul (0.0-0.0); NUCLEATED RED BLOOD CELLS% 1.8 /100WBC (0.0-0.0); PLATELET COUNT 399 10^3/UL (140-415); RED BLOOD COUNT 2.71 10^6/ul (4.20-5.40); RED CELL DISTRIBUTION WIDTH 18.5 % (11.5-14.5)
[2018-03-19 05:24] LABS: WHITE BLOOD COUNT 15.9 10^3/ul (4.8-10.8)
[2018-03-19] MEDS: SENNA TAB PO ×2 (08:07→22:47)
[2018-03-19] MEDS: FOLIC ACID 1 MG TAB PO (08:08)
[2018-03-19] MEDS: HYDROXYUREA 500 MG CAP PO ×2 (08:14→22:48)
[2018-03-19] MEDS: SOD CHLORIDE 0.45% 1,000 ML IV ×3 (09:20→22:40)
[2018-03-19] MEDS ORDERED: VANCOMYCIN IV PER PHARMACY XX (12:30)
[2018-03-19] MEDS: MEROPENEM 1 GM/50ML(PMX) 50 ML IVPB ×2 (12:41→22:49)
[2018-03-19] MEDS: VANCOMYCIN HCL 1.5 GM in SOD CHLORIDE 0.9% 250 ML IVPB (14:18)
[2018-03-19] MEDS: JADENU 360 MG PO (21:00)
[2018-03-19] MEDS: VANCOMYCIN 750 MG (PMX) 250 ML IVPB (23:30)
[2018-03-20] MEDS: morphine 10 MG INJ IV ×6 (00:11→20:28)
[2018-03-20] MEDS: DIPHENHYDRAMINE 50 MG INJ IV ×6 (00:11→20:27)
[2018-03-20] MEDS: ONDANSETRON 4 MG INJ IV (00:18)
[2018-03-20] MEDS: ALTEPLASE (CATHFLO) 2 MG INJ CATHETER ×2 (06:08→12:19)
[2018-03-20] MEDS: FOLIC ACID 1 MG TAB PO (08:23)
[2018-03-20] MEDS: SENNA TAB PO ×2 (08:24→20:27)
[2018-03-20] MEDS: MEROPENEM 1 GM/50ML(PMX) 50 ML IVPB ×2 (08:25→22:25)
[2018-03-20] MEDS: HYDROXYUREA 500 MG CAP PO ×2 (08:26→20:27)
[2018-03-20] MEDS: SOD CHLORIDE 0.45% 1,000 ML IV ×2 (12:00→20:23)
[2018-03-20] MEDS: HEPARIN (100 UNITS/ML) 5 ML SYG CATHETER (15:30)
[2018-03-20] MEDS ORDERED: ZOLPIDEM 5 MG TAB PO (19:30)
[2018-03-20 19:34] LABS: WHITE BLOOD COUNT 10.2 10^3/ul (4.8-10.8)
[2018-03-20 19:34] LABS: ABNORMAL IP MESSAGE 1; HEMATOCRIT 19.3 % (37.0-47.0); MEAN CORPUSCULAR HGB CONC 33.2 g/dl (32.0-37.0); MEAN CORPUSCULAR VOLUME 90.6 fl (82.0-101.0); MEAN PLATELET VOLUME 10.8 fl (7.4-10.4); PLATELET COUNT 230 10^3/UL (140-415); RED BLOOD COUNT 2.13 10^6/ul (4.20-5.40)
[2018-03-20 19:41] LABS: HEMOGLOBIN 6.4 g/dl (12.0-16.0); POSITIVE DIFF @See below
[2018-03-20 19:42] LABS: ADD MAN DIFF? YES
[2018-03-20 19:54] LABS: ALANINE AMINOTRANSFERASE 94 IU/L (13-69); ALBUMIN 3.5 g/dl (3.3-4.9); ALKALINE PHOSPHATASE 101 IU/L (42-121); ASPARTATE AMINO TRANSFERASE 115 IU/L (15-46); BILIRUBIN,INDIRECT 1.3 mg/dl (0-1.1); BILIRUBIN,TOTAL 1.3 mg/dl (0.2-1.3); TOTAL PROTEIN 6.9 g/dl (6.1-8.1)
[2018-03-20 19:55] LABS: ANION GAP 9 (5-13); BLOOD UREA NITROGEN 11 mg/dl (7-20); CALCIUM 7.8 mg/dl (8.4-10.2); CARBON DIOXIDE 23 mmol/L (21-31); CHLORIDE 105 mmol/L (97-110); CREATININE 0.71 mg/dl (0.44-1.00); Estimated GFR > 60 mL/min (>60); GLUCOSE 99 mg/dl (70-220); POTASSIUM 3.9 mmol/L (3.5-5.1); SODIUM 137 mmol/L (135-144)
[2018-03-20 19:55] LABS: LACTIC ACID 0.8 mmol/L (0.5-2.0)
[2018-03-20 20:08] LABS: ANISOCYTOSIS 1+ (0-0); EOSINOPHILS % (M) 2 % (0-7); ERYTHROBLAST% (NRBC) (M) 1 % (0-0); GIANT THROMBO% (M) 6 % (0-0); LYMPHOCYTES #M 2.8 10^3/ul (0.8-2.9); LYMPHOCYTES % (M) 28 % (15-51); MICROCYTOSIS 1+ (0-0); MONOCYTE #M 0.8 10^3/ul (0.3-0.9); MONOCYTES % (M) 8 % (0-11); PLATELET ESTIMATE NORMAL; POIKILOCYTOSIS 1+ (0-0); POLYCHROMASIA 2+ (0-0); SEGMENTED NEUTROPHILS (M) % 62 % (39-77); SICKLE CELL 1+ (0-0); SMUDGE%M 6 % (0-0)
[2018-03-20] MEDS: VANCOMYCIN 750 MG (PMX) 250 ML IVPB (20:24)
[2018-03-20] MEDS: JADENU 360 MG PO (20:27)
[2018-03-21] MEDS: DIPHENHYDRAMINE 50 MG INJ IV ×6 (00:20→20:13)
[2018-03-21] MEDS: morphine 10 MG INJ IV ×6 (00:20→20:14)
[2018-03-21] MEDS: VANCOMYCIN 750 MG (PMX) 250 ML IVPB ×4 (04:19→22:10)
[2018-03-21] MEDS: ONDANSETRON 4 MG INJ IV ×3 (04:28→20:13)
[2018-03-21 06:47] LABS: WHITE BLOOD COUNT 11.8 10^3/ul (4.8-10.8)
[2018-03-21 06:47] LABS: ABNORMAL IP MESSAGE 1; HEMATOCRIT 20.9 % (37.0-47.0); MEAN CORPUSCULAR HEMOGLOBIN 29.6 pg (29.0-33.0); MEAN CORPUSCULAR VOLUME 89.7 fl (82.0-101.0); MEAN PLATELET VOLUME 11.5 fl (7.4-10.4); NUCLEATED RED BLOOD CELLS% 1.4 /100WBC (0.0-0.0); PLATELET COUNT 249 10^3/UL (140-415); RED BLOOD COUNT 2.33 10^6/ul (4.20-5.40); RED CELL DISTRIBUTION WIDTH 17.6 % (11.5-14.5)
[2018-03-21 07:07] LABS: POSITIVE DIFF @See below
[2018-03-21 07:09] LABS: ADD MAN DIFF? YES; HEMOGLOBIN 6.9 g/dl (12.0-16.0)
[2018-03-21] MEDS: FOLIC ACID 1 MG TAB PO (08:23)
[2018-03-21] MEDS: SENNA TAB PO ×2 (08:23→20:15)
[2018-03-21] MEDS: HYDROXYUREA 500 MG CAP PO ×2 (08:24→20:16)
[2018-03-21] MEDS: ENOXAPARIN 30 MG/0.3 ML SYG SC (08:25)
[2018-03-21] MEDS: MEROPENEM 1 GM/50ML(PMX) 50 ML IVPB ×2 (08:27→21:04)
[2018-03-21 09:23] LABS: ANISOCYTOSIS 1+ (0-0); BAND NEUTROPHILS #M 0.4 10^3/ul (0.0-0.6); BAND NEUTROPHILS % (M) 4 % (0-4); BASOPHIL #M 0.2 10^3/ul (0.0-0.0); BASOPHILS % (M) 2 % (0-2); EOSINOPHILS % (M) 3 % (0-7); ERYTHROBLAST% (NRBC) (M) 1 % (0-0); GIANT THROMBO% (M) 8 % (0-0); HYPOCHROMASIA 1+ (0-0); LYMPHOCYTES #M 4.8 10^3/ul (0.8-2.9); LYMPHOCYTES % (M) 41 % (15-51); MICROCYTOSIS 1+ (0-0); MONOCYTE #M 1.2 10^3/ul (0.3-0.9); MONOCYTES % (M) 11 % (0-11); PLATELET ESTIMATE NORMAL; POIKILOCYTOSIS 1+ (0-0); POLYCHROMASIA 3+ (0-0); SEG NEUT #M 4.6 10^3/ul (1.6-7.5); SEGMENTED NEUTROPHILS (M) % 39 % (39-77); SICKLE CELL 1+ (0-0); SMUDGE%M 10 % (0-0)
[2018-03-21] MEDS: ACETAMINOPHEN 325 MG TAB PO ×2 (16:18→17:08)
[2018-03-21] MEDS: SOD CHLORIDE 0.45% 1,000 ML IV (16:36)
[2018-03-21] MEDS: JADENU 360 MG PO ×2 (21:00→23:45)
[2018-03-21 22:03] LABS: VANCOMYCIN,TROUGH 13.8 ug/ml (10.0-20.0)
[2018-03-21] MEDS: ZOLPIDEM 5 MG TAB PO (23:45)
[2018-03-22] MEDS: ONDANSETRON 4 MG INJ IV ×3 (00:14→22:33)
[2018-03-22] MEDS: DIPHENHYDRAMINE 50 MG INJ IV ×6 (00:14→21:20)
[2018-03-22] MEDS: morphine 10 MG INJ IV ×6 (00:14→21:20)
[2018-03-22] MEDS: SOD CHLORIDE 0.45% 1,000 ML IV ×3 (04:00→17:20)
[2018-03-22 05:29] LABS: ADD MAN DIFF? NO
[2018-03-22 05:31] LABS: WHITE BLOOD COUNT 10.7 10^3/ul (4.8-10.8)
[2018-03-22 05:31] LABS: BASOPHIL # 0.1 10^3/ul (0.0-0.1); BASOPHILS % 0.9 % (0.0-2.0); EOSINOPHILS # 0.6 10^3/ul (0.0-0.5); EOSINOPHILS % 5.1 % (0.0-7.0); HEMATOCRIT 21.8 % (37.0-47.0); HEMOGLOBIN 7.2 g/dl (12.0-16.0); LYMPHOCYTES # 4.2 10^3/ul (0.8-2.9); LYMPHOCYTES % 39.6 % (15.0-51.0); MEAN CORPUSCULAR HEMOGLOBIN 29.3 pg (29.0-33.0); MEAN CORPUSCULAR VOLUME 88.6 fl (82.0-101.0); MEAN PLATELET VOLUME 11.3 fl (7.4-10.4); MONOCYTE # 1.4 10^3/ul (0.3-0.9); NEUTROPHIL # 4.3 10^3/ul (1.6-7.5); NEUTROPHILS % 40.3 % (39.0-77.0); NUCLEATED RED BLOOD CELLS # 0.3 10^3/ul (0.0-0.0); NUCLEATED RED BLOOD CELLS% 2.6 /100WBC (0.0-0.0); PLATELET COUNT 265 10^3/UL (140-415); RED BLOOD COUNT 2.46 10^6/ul (4.20-5.40)
[2018-03-22] MEDS: VANCOMYCIN 750 MG (PMX) 250 ML IVPB (05:55)
[2018-03-22 06:06] LABS: CREATININE 0.82 mg/dl (0.44-1.00)
[2018-03-22 06:06] LABS: BLOOD UREA NITROGEN 11 mg/dl (7-20)
[2018-03-22] MEDS: MEROPENEM 1 GM/50ML(PMX) 50 ML IVPB ×2 (09:07→21:19)
[2018-03-22] MEDS: SENNA TAB PO ×2 (09:10→21:19)
[2018-03-22] MEDS: FOLIC ACID 1 MG TAB PO (09:10)
[2018-03-22] MEDS: FUROSEMIDE 40 MG TAB PO (09:11)
[2018-03-22] MEDS: ENOXAPARIN 30 MG/0.3 ML SYG SC (09:25)
[2018-03-22] MEDS: HYDROXYUREA 500 MG CAP PO ×2 (09:31→21:27)
[2018-03-22] MEDS: JADENU 360 MG PO (21:20)
[2018-03-23] MEDS: DIPHENHYDRAMINE 50 MG INJ IV ×6 (01:17→21:08)
[2018-03-23] MEDS: morphine 10 MG INJ IV ×6 (01:18→21:08)
[2018-03-23] MEDS: SOD CHLORIDE 0.45% 1,000 ML IV ×3 (01:18→21:17)
[2018-03-23] MEDS: ZOLPIDEM 5 MG TAB PO (01:22)
[2018-03-23 05:19] LABS: IMMEDIATE SPIN CROSSMATCH 1 2
[2018-03-23] MEDS: FOLIC ACID 1 MG TAB PO (08:37)
[2018-03-23] MEDS: FUROSEMIDE 40 MG TAB PO (08:37)
[2018-03-23] MEDS: SENNA TAB PO ×2 (08:37→21:07)
[2018-03-23] MEDS: HYDROXYUREA 500 MG CAP PO ×2 (08:40→21:16)
[2018-03-23] MEDS: ENOXAPARIN 30 MG/0.3 ML SYG SC (09:00)
[2018-03-23] MEDS: MEROPENEM 1 GM/50ML(PMX) 50 ML IVPB (09:44)
[2018-03-23] MEDS: JADENU 360 MG PO (21:08)
[2018-03-24] MEDS: DIPHENHYDRAMINE 50 MG INJ IV ×5 (01:18→21:06)
[2018-03-24] MEDS: morphine 10 MG INJ IV ×5 (01:18→21:06)
[2018-03-24 05:42] LABS: ADD MAN DIFF? NO
[2018-03-24 05:56] LABS: WHITE BLOOD COUNT 10.4 10^3/ul (4.8-10.8)
[2018-03-24 05:56] LABS: BASOPHIL # 0.1 10^3/ul (0.0-0.1); EOSINOPHILS # 0.5 10^3/ul (0.0-0.5); EOSINOPHILS % 4.4 % (0.0-7.0); HEMATOCRIT 26.5 % (37.0-47.0); HEMOGLOBIN 8.8 g/dl (12.0-16.0); LYMPHOCYTES # 3.8 10^3/ul (0.8-2.9); LYMPHOCYTES % 36.6 % (15.0-51.0); MEAN CORPUSCULAR HGB CONC 33.2 g/dl (32.0-37.0); MEAN CORPUSCULAR VOLUME 90.4 fl (82.0-101.0); MEAN PLATELET VOLUME 10.7 fl (7.4-10.4); MONOCYTE # 0.9 10^3/ul (0.3-0.9); NEUTROPHILS % 47.9 % (39.0-77.0); NUCLEATED RED BLOOD CELLS # 0.1 10^3/ul (0.0-0.0); NUCLEATED RED BLOOD CELLS% 1.4 /100WBC (0.0-0.0); PLATELET COUNT 322 10^3/UL (140-415); RED BLOOD COUNT 2.93 10^6/ul (4.20-5.40)
[2018-03-24 06:12] LABS: ANION GAP 10 (5-13); BLOOD UREA NITROGEN 16 mg/dl (7-20); CARBON DIOXIDE 31 mmol/L (21-31); CHLORIDE 100 mmol/L (97-110); CREATININE 0.96 mg/dl (0.44-1.00); Estimated GFR > 60 mL/min (>60); GLUCOSE 95 mg/dl (70-220); POTASSIUM 4.4 mmol/L (3.5-5.1); SODIUM 141 mmol/L (135-144)
[2018-03-24] MEDS: SENNA TAB PO ×2 (09:22→21:05)
[2018-03-24] MEDS: FUROSEMIDE 40 MG TAB PO (09:23)
[2018-03-24] MEDS: FOLIC ACID 1 MG TAB PO (09:23)
[2018-03-24] MEDS: HYDROXYUREA 500 MG CAP PO ×2 (09:25→21:02)
[2018-03-24] MEDS: ENOXAPARIN 30 MG/0.3 ML SYG SC (09:26)
[2018-03-24] MEDS: JADENU 360 MG PO (21:06)
[2018-03-24] MEDS: ONDANSETRON 4 MG INJ IV (21:18)
[2018-03-24] MEDS: SOD CHLORIDE 0.45% 1,000 ML IV (22:40)
[2018-03-25] MEDS ORDERED: VANCOMYCIN IV PER PHARMACY XX
[2018-03-25] MEDS: ZOLPIDEM 5 MG TAB PO (01:27)
[2018-03-25] MEDS: VANCOMYCIN HCL 1.5 GM in SOD CHLORIDE 0.9% 250 ML IVPB (01:27)
[2018-03-25] MEDS: DIPHENHYDRAMINE 50 MG INJ IV ×6 (01:28→21:00)
[2018-03-25] MEDS: morphine 10 MG INJ IV ×6 (01:28→21:00)
[2018-03-25 05:52] LABS: ADD MAN DIFF? NO
[2018-03-25 05:53] LABS: BASOPHIL # 0.1 10^3/ul (0.0-0.1); BASOPHILS % 1.3 % (0.0-2.0); EOSINOPHILS # 0.6 10^3/ul (0.0-0.5); EOSINOPHILS % 5.9 % (0.0-7.0); HEMOGLOBIN 9.4 g/dl (12.0-16.0); LYMPHOCYTES # 4.6 10^3/ul (0.8-2.9); LYMPHOCYTES % 48.7 % (15.0-51.0); MEAN CORPUSCULAR HEMOGLOBIN 29.8 pg (29.0-33.0); MEAN CORPUSCULAR HGB CONC 32.4 g/dl (32.0-37.0); MEAN CORPUSCULAR VOLUME 92.1 fl (82.0-101.0); MEAN PLATELET VOLUME 11.2 fl (7.4-10.4); MONOCYTES % 10.8 % (0.0-11.0); NEUTROPHIL # 3.1 10^3/ul (1.6-7.5); NEUTROPHILS % 32.7 % (39.0-77.0); NUCLEATED RED BLOOD CELLS # 0.1 10^3/ul (0.0-0.0); NUCLEATED RED BLOOD CELLS% 1.3 /100WBC (0.0-0.0); PLATELET COUNT 339 10^3/UL (140-415); RED BLOOD COUNT 3.15 10^6/ul (4.20-5.40); RED CELL DISTRIBUTION WIDTH 17.3 % (11.5-14.5)
[2018-03-25 05:53] LABS: WHITE BLOOD COUNT 9.5 10^3/ul (4.8-10.8)
[2018-03-25 06:20] LABS: ANION GAP 11 (5-13); BLOOD UREA NITROGEN 15 mg/dl (7-20); CALCIUM 8.9 mg/dl (8.4-10.2); CARBON DIOXIDE 30 mmol/L (21-31); CHLORIDE 100 mmol/L (97-110); CREATININE 0.87 mg/dl (0.44-1.00); Estimated GFR > 60 mL/min (>60); GLUCOSE 100 mg/dl (70-220); POTASSIUM 4.6 mmol/L (3.5-5.1); SODIUM 141 mmol/L (135-144)
[2018-03-25] MEDS: SENNA TAB PO ×2 (08:55→20:59)
[2018-03-25] MEDS: FOLIC ACID 1 MG TAB PO (08:56)
[2018-03-25] MEDS: FUROSEMIDE 40 MG TAB PO (08:56)
[2018-03-25] MEDS: HYDROXYUREA 500 MG CAP PO ×2 (09:00→21:07)
[2018-03-25] MEDS ORDERED: LINEZOLID 600 MG/D5W (PMX) 300 ML IVPB (09:00)
[2018-03-25] MEDS: ENOXAPARIN 30 MG/0.3 ML SYG SC (09:01)
[2018-03-25] MEDS: VANCOMYCIN 750 MG (PMX) 250 ML IVPB (12:00)
[2018-03-25] MEDS: SOD CHLORIDE 0.45% 1,000 ML IV (12:00)
[2018-03-25] MEDS: CIPROFLOXACIN 400MG/D5W 200 ML IVPB (17:00)
[2018-03-25] MEDS: CLARITHROMYCIN 500 MG TAB PO (20:31)
[2018-03-25] MEDS: JADENU 360 MG PO (21:00)
[2018-03-25] MEDS: ONDANSETRON 4 MG INJ IV (21:10)
[2018-03-26] MEDS: SOD CHLORIDE 0.45% 1,000 ML IV ×4 (00:33→14:40)
[2018-03-26] MEDS: CIPROFLOXACIN 400MG/D5W 200 ML IVPB ×3 (00:33→20:27)
[2018-03-26] MEDS: morphine 10 MG INJ IV ×6 (01:07→22:25)
[2018-03-26] MEDS: DIPHENHYDRAMINE 50 MG INJ IV ×6 (01:09→22:24)
[2018-03-26 06:10] LABS: ALANINE AMINOTRANSFERASE 67 IU/L (13-69); ALBUMIN 4.1 g/dl (3.3-4.9); ALKALINE PHOSPHATASE 142 IU/L (42-121); ASPARTATE AMINO TRANSFERASE 94 IU/L (15-46)
[2018-03-26 06:39] LABS: HEPATITIS B SURFACE ANTIGEN NEGATIVE (NEGATIVE)
[2018-03-26 06:57] LABS: HEPATITIS B CORE ANTIBODY NEGATIVE (NEGATIVE); HEPATITIS C VIRAL ANTIBODY NEGATIVE (NEGATIVE)
[2018-03-26] MEDS: FOLIC ACID 1 MG TAB PO (10:27)
[2018-03-26] MEDS: SENNA TAB PO ×2 (10:27→20:27)
[2018-03-26] MEDS: FUROSEMIDE 40 MG TAB PO (10:28)
[2018-03-26] MEDS: HYDROXYUREA 500 MG CAP PO ×2 (10:29→20:28)
[2018-03-26] MEDS: ENOXAPARIN 30 MG/0.3 ML SYG SC (10:30)
[2018-03-26] MEDS: CLARITHROMYCIN 500 MG TAB PO (10:32)
[2018-03-26 15:01] LABS: ADD MAN DIFF? NO
[2018-03-26 15:04] LABS: BASOPHIL # 0.1 10^3/ul (0.0-0.1); BASOPHILS % 0.8 % (0.0-2.0); EOSINOPHILS # 0.6 10^3/ul (0.0-0.5); HEMATOCRIT 28.9 % (37.0-47.0); HEMOGLOBIN 9.6 g/dl (12.0-16.0); LYMPHOCYTES # 2.7 10^3/ul (0.8-2.9); LYMPHOCYTES % 28.4 % (15.0-51.0); MEAN CORPUSCULAR HEMOGLOBIN 30.2 pg (29.0-33.0); MEAN CORPUSCULAR HGB CONC 33.2 g/dl (32.0-37.0); MEAN CORPUSCULAR VOLUME 90.9 fl (82.0-101.0); MEAN PLATELET VOLUME 10.7 fl (7.4-10.4); MONOCYTE # 0.7 10^3/ul (0.3-0.9); MONOCYTES % 7.7 % (0.0-11.0); NEUTROPHIL # 5.4 10^3/ul (1.6-7.5); NEUTROPHILS % 56.5 % (39.0-77.0); NUCLEATED RED BLOOD CELLS # 0.1 10^3/ul (0.0-0.0); PLATELET COUNT 345 10^3/UL (140-415); RED BLOOD COUNT 3.18 10^6/ul (4.20-5.40); RED CELL DISTRIBUTION WIDTH 17.2 % (11.5-14.5)
[2018-03-26 15:04] LABS: WHITE BLOOD COUNT 9.6 10^3/ul (4.8-10.8)
[2018-03-26 15:24] LABS: ANION GAP 12 (5-13); BLOOD UREA NITROGEN 15 mg/dl (7-20); CARBON DIOXIDE 29 mmol/L (21-31); CHLORIDE 99 mmol/L (97-110); CREATININE 0.78 mg/dl (0.44-1.00); Estimated GFR > 60 mL/min (>60); GLUCOSE 104 mg/dl (70-220); POTASSIUM 5.3 mmol/L (3.5-5.1); SODIUM 140 mmol/L (135-144)
[2018-03-26] MEDS: JADENU 360 MG PO (20:27)
[2018-03-26] MEDS: ONDANSETRON 4 MG INJ IV (22:30)
[2018-03-27] MEDS: ZOLPIDEM 5 MG TAB PO (02:13)
[2018-03-27] MEDS: DIPHENHYDRAMINE 50 MG INJ IV ×6 (02:14→22:32)
[2018-03-27] MEDS: morphine 10 MG INJ IV ×6 (02:14→22:31)
[2018-03-27] MEDS: SOD CHLORIDE 0.45% 1,000 ML IV ×2 (03:14→09:51)
[2018-03-27 06:05] LABS: ADD MAN DIFF? NO
[2018-03-27 06:09] LABS: BASOPHIL # 0.1 10^3/ul (0.0-0.1); BASOPHILS % 0.6 % (0.0-2.0); EOSINOPHILS # 0.8 10^3/ul (0.0-0.5); HEMATOCRIT 28.9 % (37.0-47.0); HEMOGLOBIN 9.4 g/dl (12.0-16.0); LYMPHOCYTES # 3.8 10^3/ul (0.8-2.9); LYMPHOCYTES % 36.9 % (15.0-51.0); MEAN CORPUSCULAR HEMOGLOBIN 29.5 pg (29.0-33.0); MEAN CORPUSCULAR HGB CONC 32.5 g/dl (32.0-37.0); MEAN CORPUSCULAR VOLUME 90.6 fl (82.0-101.0); MEAN PLATELET VOLUME 10.7 fl (7.4-10.4); MONOCYTE # 1.1 10^3/ul (0.3-0.9); MONOCYTES % 10.5 % (0.0-11.0); NEUTROPHIL # 4.5 10^3/ul (1.6-7.5); NEUTROPHILS % 43.2 % (39.0-77.0); NUCLEATED RED BLOOD CELLS # 0.1 10^3/ul (0.0-0.0); NUCLEATED RED BLOOD CELLS% 0.8 /100WBC (0.0-0.0); PLATELET COUNT 339 10^3/UL (140-415); RED BLOOD COUNT 3.19 10^6/ul (4.20-5.40); RED CELL DISTRIBUTION WIDTH 17.1 % (11.5-14.5)
[2018-03-27 06:09] LABS: WHITE BLOOD COUNT 10.4 10^3/ul (4.8-10.8)
[2018-03-27] MEDS: ONDANSETRON 4 MG INJ IV (06:22)
[2018-03-27 06:43] LABS: ANION GAP 9 (5-13); BLOOD UREA NITROGEN 13 mg/dl (7-20); CALCIUM 8.8 mg/dl (8.4-10.2); CARBON DIOXIDE 27 mmol/L (21-31); CHLORIDE 104 mmol/L (97-110); CREATININE 0.88 mg/dl (0.44-1.00); Estimated GFR > 60 mL/min (>60); GLUCOSE 106 mg/dl (70-220); POTASSIUM 4.6 mmol/L (3.5-5.1); SODIUM 140 mmol/L (135-144)
[2018-03-27] MEDS: SENNA TAB PO ×2 (09:00→21:00)
[2018-03-27] MEDS: FOLIC ACID 1 MG TAB PO (09:39)
[2018-03-27] MEDS: CIPROFLOXACIN 400MG/D5W 200 ML IVPB ×2 (09:39→22:30)
[2018-03-27] MEDS: FUROSEMIDE 40 MG TAB PO (09:40)
[2018-03-27] MEDS: CLARITHROMYCIN 500 MG TAB PO ×2 (09:40→22:31)
[2018-03-27] MEDS: ENOXAPARIN 30 MG/0.3 ML SYG SC (09:43)
[2018-03-27] MEDS: HYDROXYUREA 500 MG CAP PO ×2 (09:43→22:41)
[2018-03-27] MEDS: JADENU 360 MG PO (22:32)
[2018-03-28] MEDS: DIPHENHYDRAMINE 50 MG INJ IV ×6 (02:25→22:48)
[2018-03-28] MEDS: morphine 10 MG INJ IV ×6 (02:25→22:47)
[2018-03-28] MEDS: SOD CHLORIDE 0.45% 1,000 ML IV ×2 (05:46→14:28)
[2018-03-28] MEDS: CIPROFLOXACIN 400MG/D5W 200 ML IVPB ×2 (10:23→21:37)
[2018-03-28] MEDS: CLARITHROMYCIN 500 MG TAB PO ×2 (10:27→21:00)
[2018-03-28] MEDS: LUBIPROSTONE 24 MCG CAP PO ×2 (10:27→21:41)
[2018-03-28] MEDS: FUROSEMIDE 40 MG TAB PO (10:28)
[2018-03-28] MEDS: FOLIC ACID 1 MG TAB PO (10:28)
[2018-03-28] MEDS: HYDROXYUREA 500 MG CAP PO ×2 (10:29→21:44)
[2018-03-28] MEDS: ENOXAPARIN 30 MG/0.3 ML SYG SC (10:30)
[2018-03-28] MEDS: JADENU 360 MG PO (21:42)
[2018-03-28] MEDS: ONDANSETRON 4 MG INJ IV (22:48)
[2018-03-28] MEDS: PANTOPRAZOLE (EC) 40 MG TAB PO (23:34)
[2018-03-29] MEDS: morphine 10 MG INJ IV ×6 (02:42→23:03)
[2018-03-29] MEDS: DIPHENHYDRAMINE 50 MG INJ IV ×6 (02:42→23:02)
[2018-03-29] MEDS: SOD CHLORIDE 0.45% 1,000 ML IV ×3 (03:20→16:40)
[2018-03-29] MEDS: SOD CHLORIDE 0.9% 250 ML IV* (03:39)
[2018-03-29] MEDS: PANTOPRAZOLE (EC) 40 MG TAB PO (06:41)
[2018-03-29] MEDS: LUBIPROSTONE 24 MCG CAP PO ×3 (09:00→21:02)
[2018-03-29] MEDS: ENOXAPARIN 30 MG/0.3 ML SYG SC ×2 (09:00→10:48)
[2018-03-29] MEDS: CLARITHROMYCIN 500 MG TAB PO ×3 (09:00→21:02)
[2018-03-29] MEDS: FUROSEMIDE 40 MG TAB PO ×2 (09:00→10:40)
[2018-03-29] MEDS: HYDROXYUREA 500 MG CAP PO ×3 (09:00→21:08)
[2018-03-29] MEDS: FOLIC ACID 1 MG TAB PO ×2 (09:00→10:39)
[2018-03-29] MEDS: CIPROFLOXACIN 400MG/D5W 200 ML IVPB ×2 (09:28→21:01)
[2018-03-29] MEDS: JADENU 360 MG PO (21:03)
[2018-03-29] MEDS: ONDANSETRON 4 MG INJ IV (23:01)
[2018-03-30] MEDS: DIPHENHYDRAMINE 50 MG INJ IV ×5 (03:19→20:13)
[2018-03-30] MEDS: morphine 10 MG INJ IV ×5 (03:19→20:09)
[2018-03-30] MEDS: SOD CHLORIDE 0.45% 1,000 ML IV ×3 (04:06→19:20)
[2018-03-30] MEDS: PANTOPRAZOLE (EC) 40 MG TAB PO (06:23)
[2018-03-30] MEDS: CIPROFLOXACIN 400MG/D5W 200 ML IVPB ×2 (09:26→20:19)
[2018-03-30] MEDS: LUBIPROSTONE 24 MCG CAP PO ×2 (09:27→20:15)
[2018-03-30] MEDS: FUROSEMIDE 40 MG TAB PO (09:27)
[2018-03-30] MEDS: FOLIC ACID 1 MG TAB PO (09:27)
[2018-03-30] MEDS: CLARITHROMYCIN 500 MG TAB PO ×2 (09:27→20:16)
[2018-03-30] MEDS: HYDROXYUREA 500 MG CAP PO ×2 (09:28→20:18)
[2018-03-30] MEDS: ENOXAPARIN 30 MG/0.3 ML SYG SC (09:29)
[2018-03-30] MEDS ORDERED: NEOMYC/POLYMYX/HC 10 ML OTIC SUSP BOTH EARS (11:30)
[2018-03-30] MEDS: ONDANSETRON 4 MG INJ IV ×2 (11:48→20:05)
[2018-03-30 16:43] LABS: ADD MAN DIFF? NO
[2018-03-30 16:46] LABS: WHITE BLOOD COUNT 9.5 10^3/ul (4.8-10.8)
[2018-03-30 16:46] LABS: BASOPHIL # 0.1 10^3/ul (0.0-0.1); BASOPHILS % 1.1 % (0.0-2.0); EOSINOPHILS # 0.6 10^3/ul (0.0-0.5); EOSINOPHILS % 5.9 % (0.0-7.0); HEMATOCRIT 26.7 % (37.0-47.0); HEMOGLOBIN 8.7 g/dl (12.0-16.0); LYMPHOCYTES # 3.8 10^3/ul (0.8-2.9); LYMPHOCYTES % 40.3 % (15.0-51.0); MEAN CORPUSCULAR HEMOGLOBIN 29.6 pg (29.0-33.0); MEAN CORPUSCULAR HGB CONC 32.6 g/dl (32.0-37.0); MEAN CORPUSCULAR VOLUME 90.8 fl (82.0-101.0); MEAN PLATELET VOLUME 10.9 fl (7.4-10.4); MONOCYTE # 1.3 10^3/ul (0.3-0.9); MONOCYTES % 13.7 % (0.0-11.0); NEUTROPHIL # 3.7 10^3/ul (1.6-7.5); NEUTROPHILS % 38.4 % (39.0-77.0); NUCLEATED RED BLOOD CELLS% 0.4 /100WBC (0.0-0.0); PLATELET COUNT 243 10^3/UL (140-415); RED BLOOD COUNT 2.94 10^6/ul (4.20-5.40)
[2018-03-30 17:09] LABS: ANION GAP 9 (5-13); BLOOD UREA NITROGEN 13 mg/dl (7-20); CALCIUM 9.1 mg/dl (8.4-10.2); CARBON DIOXIDE 27 mmol/L (21-31); CHLORIDE 102 mmol/L (97-110); CREATININE 0.85 mg/dl (0.44-1.00); Estimated GFR > 60 mL/min (>60); GLUCOSE 100 mg/dl (70-220); SODIUM 138 mmol/L (135-144)
[2018-03-30] MEDS: JADENU 360 MG PO (20:19)
[2018-03-31] MEDS: ONDANSETRON 4 MG INJ IV ×5 (01:37→17:43)
[2018-03-31] MEDS: morphine 10 MG INJ IV ×6 (01:37→21:48)
[2018-03-31] MEDS: DIPHENHYDRAMINE 50 MG INJ IV ×6 (01:37→21:44)
[2018-03-31] MEDS: PANTOPRAZOLE (EC) 40 MG TAB PO (05:32)
[2018-03-31] MEDS: SOD CHLORIDE 0.45% 1,000 ML IV ×2 (05:33→08:40)
[2018-03-31 05:38] LABS: ADD MAN DIFF? NO
[2018-03-31 05:50] LABS: WHITE BLOOD COUNT 8.9 10^3/ul (4.8-10.8)
[2018-03-31 05:50] LABS: BASOPHIL # 0.1 10^3/ul (0.0-0.1); BASOPHILS % 1.2 % (0.0-2.0); EOSINOPHILS # 0.8 10^3/ul (0.0-0.5); EOSINOPHILS % 8.4 % (0.0-7.0); HEMATOCRIT 26.5 % (37.0-47.0); HEMOGLOBIN 8.8 g/dl (12.0-16.0); LYMPHOCYTES # 4.1 10^3/ul (0.8-2.9); MEAN CORPUSCULAR HEMOGLOBIN 30.2 pg (29.0-33.0); MEAN CORPUSCULAR HGB CONC 33.2 g/dl (32.0-37.0); MEAN CORPUSCULAR VOLUME 91.1 fl (82.0-101.0); MEAN PLATELET VOLUME 11.3 fl (7.4-10.4); MONOCYTE # 1.5 10^3/ul (0.3-0.9); MONOCYTES % 16.7 % (0.0-11.0); NEUTROPHIL # 2.5 10^3/ul (1.6-7.5); NEUTROPHILS % 27.4 % (39.0-77.0); NUCLEATED RED BLOOD CELLS% 0.3 /100WBC (0.0-0.0); PLATELET COUNT 244 10^3/UL (140-415); RED BLOOD COUNT 2.91 10^6/ul (4.20-5.40); RED CELL DISTRIBUTION WIDTH 17.2 % (11.5-14.5)
[2018-03-31 06:11] LABS: ANION GAP 8 (5-13); BLOOD UREA NITROGEN 12 mg/dl (7-20); CALCIUM 9.2 mg/dl (8.4-10.2); CARBON DIOXIDE 26 mmol/L (21-31); CHLORIDE 104 mmol/L (97-110); CREATININE 0.78 mg/dl (0.44-1.00); Estimated GFR > 60 mL/min (>60); GLUCOSE 109 mg/dl (70-220); POTASSIUM 4.5 mmol/L (3.5-5.1); SODIUM 138 mmol/L (135-144)
[2018-03-31] MEDS: BISACODYL (EC) 5 MG TAB PO ×3 (09:43→12:20)
[2018-03-31] MEDS: POLYETHYLENE GLYCOL 17 GM PACKET PO (09:43)
[2018-03-31] MEDS: CLARITHROMYCIN 500 MG TAB PO ×3 (09:44→21:44)
[2018-03-31] MEDS: FOLIC ACID 1 MG TAB PO ×2 (09:44→10:04)
[2018-03-31] MEDS: LUBIPROSTONE 24 MCG CAP PO ×3 (09:44→21:00)
[2018-03-31] MEDS: ENOXAPARIN 30 MG/0.3 ML SYG SC (09:46)
[2018-03-31] MEDS: HYDROXYUREA 500 MG CAP PO ×3 (09:46→21:51)
[2018-03-31] MEDS: FUROSEMIDE 40 MG TAB PO (09:51)
[2018-03-31] MEDS: CIPROFLOXACIN 400MG/D5W 200 ML IVPB ×2 (09:52→21:43)
[2018-03-31] MEDS ORDERED: CIPROFLOXACIN HCL OTIC DROP 0.25 ML BOTH EARS ×2 (12:00)
[2018-03-31] MEDS: JADENU 360 MG PO (21:43)
[2018-04-01] MEDS: DIPHENHYDRAMINE 50 MG INJ IV ×6 (01:40→21:55)
[2018-04-01] MEDS: morphine 10 MG INJ IV ×6 (01:41→21:56)
[2018-04-01] MEDS: PANTOPRAZOLE (EC) 40 MG TAB PO (05:46)
[2018-04-01] MEDS: SOD CHLORIDE 0.45% 1,000 ML IV ×2 (06:03→20:55)
[2018-04-01] MEDS: CIPROFLOXACIN 400MG/D5W 200 ML IVPB ×2 (09:40→20:57)
[2018-04-01] MEDS: POLYETHYLENE GLYCOL 17 GM PACKET PO (09:41)
[2018-04-01] MEDS: LUBIPROSTONE 24 MCG CAP PO ×2 (09:41→22:01)
[2018-04-01] MEDS: CLARITHROMYCIN 500 MG TAB PO ×2 (09:42→22:01)
[2018-04-01] MEDS: FUROSEMIDE 40 MG TAB PO (09:44)
[2018-04-01] MEDS: FOLIC ACID 1 MG TAB PO (09:44)
[2018-04-01] MEDS: HYDROXYUREA 500 MG CAP PO ×2 (09:45→22:03)
[2018-04-01] MEDS: ENOXAPARIN 30 MG/0.3 ML SYG SC (09:46)
[2018-04-01] MEDS: MAGNESIUM CITRATE 300 ML BTL PO (13:44)
[2018-04-01] MEDS: JADENU 360 MG PO (22:02)
[2018-04-02] MEDS: ACETAMINOPHEN 325 MG TAB PO (00:06)
[2018-04-02] MEDS: DIPHENHYDRAMINE 50 MG INJ IV ×6 (01:55→22:26)
[2018-04-02] MEDS: morphine 10 MG INJ IV ×6 (01:55→22:26)
[2018-04-02] MEDS: PANTOPRAZOLE (EC) 40 MG TAB PO (05:56)
[2018-04-02] MEDS: POLYETHYLENE GLYCOL 17 GM PACKET PO (10:00)
[2018-04-02] MEDS ORDERED: METHYLNALTREXONE 12 MG/0.6 ML VIAL SC (10:00)
[2018-04-02] MEDS: CIPROFLOXACIN 400MG/D5W 200 ML IVPB ×2 (10:00→20:49)
[2018-04-02] MEDS: LUBIPROSTONE 24 MCG CAP PO ×2 (10:01→20:50)
[2018-04-02] MEDS: CLARITHROMYCIN 500 MG TAB PO ×2 (10:02→20:50)
[2018-04-02] MEDS: FOLIC ACID 1 MG TAB PO (10:02)
[2018-04-02] MEDS: FUROSEMIDE 40 MG TAB PO (10:05)
[2018-04-02] MEDS: ENOXAPARIN 30 MG/0.3 ML SYG SC (10:07)
[2018-04-02] MEDS: HYDROXYUREA 500 MG CAP PO ×2 (10:08→21:12)
[2018-04-02] MEDS: METHYLNALTREXONE 12 MG/0.6 ML VIAL SC (11:50)
[2018-04-02 11:53] LABS: ADD MAN DIFF? NO
[2018-04-02 12:08] LABS: WHITE BLOOD COUNT 8.6 10^3/ul (4.8-10.8)
[2018-04-02 12:08] LABS: BASOPHIL # 0.1 10^3/ul (0.0-0.1); BASOPHILS % 1.5 % (0.0-2.0); EOSINOPHILS # 0.8 10^3/ul (0.0-0.5); EOSINOPHILS % 9.4 % (0.0-7.0); HEMATOCRIT 26.6 % (37.0-47.0); HEMOGLOBIN 8.8 g/dl (12.0-16.0); LYMPHOCYTES # 3.2 10^3/ul (0.8-2.9); LYMPHOCYTES % 36.8 % (15.0-51.0); MEAN CORPUSCULAR HEMOGLOBIN 29.7 pg (29.0-33.0); MEAN CORPUSCULAR HGB CONC 33.1 g/dl (32.0-37.0); MEAN CORPUSCULAR VOLUME 89.9 fl (82.0-101.0); MEAN PLATELET VOLUME 10.9 fl (7.4-10.4); MONOCYTE # 1.1 10^3/ul (0.3-0.9); NEUTROPHIL # 3.3 10^3/ul (1.6-7.5); NUCLEATED RED BLOOD CELLS% 0.3 /100WBC (0.0-0.0); PLATELET COUNT 232 10^3/UL (140-415); RED BLOOD COUNT 2.96 10^6/ul (4.20-5.40); RED CELL DISTRIBUTION WIDTH 16.9 % (11.5-14.5)
[2018-04-02 12:36] LABS: ALANINE AMINOTRANSFERASE 107 IU/L (13-69); ALKALINE PHOSPHATASE 138 IU/L (42-121); ANION GAP 9 (5-13); ASPARTATE AMINO TRANSFERASE 154 IU/L (15-46); BILIRUBIN,INDIRECT 1.1 mg/dl (0-1.1); BILIRUBIN,TOTAL 1.1 mg/dl (0.2-1.3); BLOOD UREA NITROGEN 17 mg/dl (7-20); CALCIUM 9.1 mg/dl (8.4-10.2); CARBON DIOXIDE 29 mmol/L (21-31); CHLORIDE 100 mmol/L (97-110); CREATININE 0.99 mg/dl (0.44-1.00); Estimated GFR > 60 mL/min (>60); GLUCOSE 130 mg/dl (70-220); POTASSIUM 4.1 mmol/L (3.5-5.1); SODIUM 138 mmol/L (135-144)
[2018-04-02] MEDS: ARTIFICIAL TEARS 15 ML OPH BOTH EYES ×3 (14:24→20:50)
[2018-04-02] MEDS: IBUPROFEN 400 MG TAB PO (17:37)
[2018-04-02] MEDS: JADENU 360 MG PO (20:50)
[2018-04-03] MEDS: DIPHENHYDRAMINE 50 MG INJ IV ×6 (02:30→22:24)
[2018-04-03] MEDS: morphine 10 MG INJ IV ×6 (02:31→22:24)
[2018-04-03] MEDS: SOD CHLORIDE 0.45% 1,000 ML IV ×2 (02:59→06:24)
[2018-04-03] MEDS: ZOLPIDEM 5 MG TAB PO (03:00)
[2018-04-03] MEDS: PANTOPRAZOLE (EC) 40 MG TAB PO (06:23)
[2018-04-03] MEDS: ONDANSETRON 4 MG INJ IV ×5 (06:34→22:24)
[2018-04-03] MEDS: HYDROXYUREA 500 MG CAP PO ×2 (10:37→22:31)
[2018-04-03] MEDS: LUBIPROSTONE 24 MCG CAP PO ×2 (10:43→22:29)
[2018-04-03] MEDS: CLARITHROMYCIN 500 MG TAB PO ×2 (10:43→22:29)
[2018-04-03] MEDS: METHYLNALTREXONE 12 MG/0.6 ML VIAL SC (10:43)
[2018-04-03] MEDS: CIPROFLOXACIN 400MG/D5W 200 ML IVPB ×2 (10:44→22:29)
[2018-04-03] MEDS: ARTIFICIAL TEARS 15 ML OPH BOTH EYES ×4 (10:44→22:32)
[2018-04-03] MEDS: ENOXAPARIN 30 MG/0.3 ML SYG SC (10:54)
[2018-04-03] MEDS: POLYETHYLENE GLYCOL 17 GM PACKET PO (10:57)
[2018-04-03] MEDS: FUROSEMIDE 40 MG TAB PO (10:57)
[2018-04-03] MEDS: BISACODYL 10 MG SUPP PR (10:57)
[2018-04-03] MEDS: FOLIC ACID 1 MG TAB PO (10:57)
[2018-04-03] MEDS: JADENU 360 MG PO (22:32)
[2018-04-04] MEDS: morphine 10 MG INJ IV ×6 (02:27→22:33)
[2018-04-04] MEDS: DIPHENHYDRAMINE 50 MG INJ IV ×6 (02:27→22:33)
[2018-04-04] MEDS: PANTOPRAZOLE (EC) 40 MG TAB PO (06:29)
[2018-04-04] MEDS: ONDANSETRON 4 MG INJ IV ×2 (06:31→18:10)
[2018-04-04 08:01] LABS: HEMATOCRIT 25.6 % (37.0-47.0); HEMOGLOBIN 8.5 g/dl (12.0-16.0); MEAN CORPUSCULAR HEMOGLOBIN 30.2 pg (29.0-33.0); MEAN CORPUSCULAR HGB CONC 33.2 g/dl (32.0-37.0); MEAN CORPUSCULAR VOLUME 91.1 fl (82.0-101.0); NUCLEATED RED BLOOD CELLS% 0.2 /100WBC (0.0-0.0); PLATELET COUNT 264 10^3/UL (140-415); RED BLOOD COUNT 2.81 10^6/ul (4.20-5.40)
[2018-04-04 08:01] LABS: WHITE BLOOD COUNT 13.4 10^3/ul (4.8-10.8)
[2018-04-04 08:10] LABS: ADD MAN DIFF? YES; POSITIVE DIFF @See below
[2018-04-04 08:23] LABS: ALANINE AMINOTRANSFERASE 93 IU/L (13-69); ALBUMIN 4.2 g/dl (3.3-4.9); ALKALINE PHOSPHATASE 146 IU/L (42-121); ASPARTATE AMINO TRANSFERASE 115 IU/L (15-46); TOTAL PROTEIN 8.3 g/dl (6.1-8.1)
[2018-04-04 09:33] LABS: ANISOCYTOSIS 1+ (0-0); BAND NEUTROPHILS #M 0.1 10^3/ul (0.0-0.6); BAND NEUTROPHILS % (M) 1 % (0-4); BASOPHIL #M 0.4 10^3/ul (0.0-0.0); BASOPHILS % (M) 3 % (0-2); EOSINOPHILS % (M) 3 % (0-7); GIANT THROMBO% (M) 8 % (0-0); LYMPHOCYTES #M 5.3 10^3/ul (0.8-2.9); LYMPHOCYTES % (M) 40 % (15-51); MONOCYTE #M 0.9 10^3/ul (0.3-0.9); MONOCYTES % (M) 7 % (0-11); PLATELET ESTIMATE NORMAL; POIKILOCYTOSIS 1+ (0-0); POLYCHROMASIA 1+ (0-0); PROMYELOCYTES #M 0.1 10^3/ul (0-0); PROMYELOCYTES % (M) 1 % (0-0); SEGMENTED NEUTROPHILS (M) % 45 % (39-77); SICKLE CELL 1+ (0-0); SMUDGE%M 5 % (0-0); TARGET CELLS 1+ (0-0)
[2018-04-04] MEDS: CIPROFLOXACIN 400MG/D5W 200 ML IVPB ×2 (10:10→21:49)
[2018-04-04] MEDS: POLYETHYLENE GLYCOL 17 GM PACKET PO (10:10)
[2018-04-04] MEDS: FOLIC ACID 1 MG TAB PO (10:10)
[2018-04-04] MEDS: CLARITHROMYCIN 500 MG TAB PO ×2 (10:10→22:33)
[2018-04-04] MEDS: LUBIPROSTONE 24 MCG CAP PO ×2 (10:11→22:33)
[2018-04-04] MEDS: HYDROXYUREA 500 MG CAP PO ×2 (10:15→22:36)
[2018-04-04] MEDS: ENOXAPARIN 30 MG/0.3 ML SYG SC (10:15)
[2018-04-04] MEDS: ARTIFICIAL TEARS 15 ML OPH BOTH EYES ×4 (10:19→21:00)
[2018-04-04] MEDS: FUROSEMIDE 40 MG TAB PO (10:21)
[2018-04-04] MEDS: MAGNESIUM CITRATE 300 ML BTL PO (11:44)
[2018-04-04] MEDS: METOCLOPRAMIDE 10 MG INJ IV ×2 (13:15→22:32)
[2018-04-04] MEDS: SOD CHLORIDE 0.45% 1,000 ML IV (18:09)
[2018-04-04] MEDS ORDERED: LACTULOSE 30ML CUP PO (19:30)
[2018-04-04] MEDS: JADENU 360 MG PO (21:00)
[2018-04-05] MEDS: DIPHENHYDRAMINE 50 MG INJ IV ×6 (02:33→22:23)
[2018-04-05] MEDS: morphine 10 MG INJ IV ×6 (02:36→22:23)
[2018-04-05] MEDS: METOCLOPRAMIDE 10 MG INJ IV ×3 (06:35→22:11)
[2018-04-05] MEDS: PANTOPRAZOLE (EC) 40 MG TAB PO (06:35)
[2018-04-05 08:59] LABS: ALANINE AMINOTRANSFERASE 82 IU/L (13-69); ALBUMIN 4.3 g/dl (3.3-4.9); ALKALINE PHOSPHATASE 117 IU/L (42-121); ASPARTATE AMINO TRANSFERASE 118 IU/L (15-46); BILIRUBIN,INDIRECT 0.9 mg/dl (0-1.1); BILIRUBIN,TOTAL 0.9 mg/dl (0.2-1.3); TOTAL PROTEIN 8.3 g/dl (6.1-8.1)
[2018-04-05] MEDS: FOLIC ACID 1 MG TAB PO (09:34)
[2018-04-05] MEDS: CIPROFLOXACIN 400MG/D5W 200 ML IVPB ×2 (09:34→22:09)
[2018-04-05] MEDS: LUBIPROSTONE 24 MCG CAP PO ×2 (09:34→22:10)
[2018-04-05] MEDS: POLYETHYLENE GLYCOL 17 GM PACKET PO (09:35)
[2018-04-05] MEDS: CLARITHROMYCIN 500 MG TAB PO ×2 (09:35→22:10)
[2018-04-05] MEDS: FUROSEMIDE 40 MG TAB PO (09:35)
[2018-04-05] MEDS: ARTIFICIAL TEARS 15 ML OPH BOTH EYES ×4 (09:35→22:09)
[2018-04-05] MEDS: HYDROXYUREA 500 MG CAP PO ×2 (09:37→22:13)
[2018-04-05] MEDS: ENOXAPARIN 30 MG/0.3 ML SYG SC (09:37)
[2018-04-05] MEDS: JADENU 360 MG PO (22:11)
[2018-04-06] MEDS: DIPHENHYDRAMINE 50 MG INJ IV ×6 (02:40→22:30)
[2018-04-06] MEDS: morphine 10 MG INJ IV ×6 (02:41→22:30)
[2018-04-06] MEDS: SOD CHLORIDE 0.45% 1,000 ML IV ×3 (06:03→22:15)
[2018-04-06] MEDS: METOCLOPRAMIDE 10 MG INJ IV ×3 (06:34→22:30)
[2018-04-06] MEDS: PANTOPRAZOLE (EC) 40 MG TAB PO (06:34)
[2018-04-06] MEDS: ARTIFICIAL TEARS 15 ML OPH BOTH EYES ×4 (09:56→20:27)
[2018-04-06] MEDS: CIPROFLOXACIN 400MG/D5W 200 ML IVPB ×2 (09:56→20:28)
[2018-04-06] MEDS: LUBIPROSTONE 24 MCG CAP PO ×2 (09:57→20:32)
[2018-04-06] MEDS: CLARITHROMYCIN 500 MG TAB PO ×2 (09:57→20:28)
[2018-04-06] MEDS: FOLIC ACID 1 MG TAB PO (09:57)
[2018-04-06] MEDS: POLYETHYLENE GLYCOL 17 GM PACKET PO (09:58)
[2018-04-06] MEDS: ENOXAPARIN 30 MG/0.3 ML SYG SC (10:01)
[2018-04-06] MEDS: METHYLNALTREXONE 12 MG/0.6 ML VIAL SC (10:01)
[2018-04-06] MEDS: HYDROXYUREA 500 MG CAP PO ×2 (10:02→20:31)
[2018-04-06] MEDS: FUROSEMIDE 40 MG TAB PO (10:02)
[2018-04-06] MEDS: JADENU 360 MG PO (20:28)
[2018-04-07] MEDS: SOD CHLORIDE 0.45% 1,000 ML IV ×2 (02:14→14:44)
[2018-04-07] MEDS: DIPHENHYDRAMINE 50 MG INJ IV ×6 (02:39→22:26)
[2018-04-07] MEDS: morphine 10 MG INJ IV ×6 (02:39→22:26)
[2018-04-07] MEDS: ONDANSETRON 4 MG INJ IV ×2 (02:39→10:35)
[2018-04-07 05:26] LABS: ADD MAN DIFF? NO
[2018-04-07 05:35] LABS: BASOPHIL # 0.1 10^3/ul (0.0-0.1); BASOPHILS % 1.3 % (0.0-2.0); EOSINOPHILS # 0.4 10^3/ul (0.0-0.5); HEMATOCRIT 25.5 % (37.0-47.0); HEMOGLOBIN 7.9 g/dl (12.0-16.0); LYMPHOCYTES # 3.4 10^3/ul (0.8-2.9); LYMPHOCYTES % 64.6 % (15.0-51.0); MEAN PLATELET VOLUME 11.2 fl (7.4-10.4); MONOCYTE # 0.3 10^3/ul (0.3-0.9); MONOCYTES % 5.3 % (0.0-11.0); NEUTROPHIL # 1.1 10^3/ul (1.6-7.5); NEUTROPHILS % 21.4 % (39.0-77.0); NUCLEATED RED BLOOD CELLS% 0.6 /100WBC (0.0-0.0); PLATELET COUNT 172 10^3/UL (140-415); RED BLOOD COUNT 2.55 10^6/ul (4.20-5.40); RED CELL DISTRIBUTION WIDTH 16.9 % (11.5-14.5)
[2018-04-07 05:35] LABS: WHITE BLOOD COUNT 5.3 10^3/ul (4.8-10.8)
[2018-04-07 06:09] LABS: ANION GAP 7 (5-13); BLOOD UREA NITROGEN 15 mg/dl (7-20); CALCIUM 9.3 mg/dl (8.4-10.2); CARBON DIOXIDE 28 mmol/L (21-31); CHLORIDE 104 mmol/L (97-110); CREATININE 0.81 mg/dl (0.44-1.00); Estimated GFR > 60 mL/min (>60); GLUCOSE 91 mg/dl (70-220); POTASSIUM 4.3 mmol/L (3.5-5.1); SODIUM 139 mmol/L (135-144)
[2018-04-07] MEDS: METOCLOPRAMIDE 10 MG INJ IV ×3 (06:32→22:26)
[2018-04-07] MEDS: PANTOPRAZOLE (EC) 40 MG TAB PO (06:33)
[2018-04-07] MEDS: LUBIPROSTONE 24 MCG CAP PO ×2 (08:58→22:25)
[2018-04-07] MEDS: FUROSEMIDE 40 MG TAB PO (08:59)
[2018-04-07] MEDS: CLARITHROMYCIN 500 MG TAB PO ×2 (08:59→22:26)
[2018-04-07] MEDS: FOLIC ACID 1 MG TAB PO (09:00)
[2018-04-07] MEDS: POLYETHYLENE GLYCOL 17 GM PACKET PO (09:00)
[2018-04-07] MEDS: HYDROXYUREA 500 MG CAP PO ×2 (09:02→22:42)
[2018-04-07] MEDS: METHYLNALTREXONE 12 MG/0.6 ML VIAL SC (09:03)
[2018-04-07] MEDS: CIPROFLOXACIN 400MG/D5W 200 ML IVPB ×2 (09:03→22:24)
[2018-04-07] MEDS: ENOXAPARIN 30 MG/0.3 ML SYG SC (09:03)
[2018-04-07] MEDS: ARTIFICIAL TEARS 15 ML OPH BOTH EYES ×4 (10:35→22:24)
[2018-04-07] MEDS: JADENU 360 MG PO (22:23)
[2018-04-08] MEDS: morphine 10 MG INJ IV ×6 (02:26→22:22)
[2018-04-08] MEDS: DIPHENHYDRAMINE 50 MG INJ IV ×6 (02:26→22:22)
[2018-04-08] MEDS: PANTOPRAZOLE (EC) 40 MG TAB PO (06:31)
[2018-04-08] MEDS: METOCLOPRAMIDE 10 MG INJ IV ×3 (06:31→22:00)
[2018-04-08] MEDS: CLARITHROMYCIN 500 MG TAB PO ×2 (10:33→22:19)
[2018-04-08] MEDS: LUBIPROSTONE 24 MCG CAP PO ×2 (10:33→22:19)
[2018-04-08] MEDS: FOLIC ACID 1 MG TAB PO (10:33)
[2018-04-08] MEDS: METHYLNALTREXONE 12 MG/0.6 ML VIAL SC (10:34)
[2018-04-08] MEDS: FUROSEMIDE 40 MG TAB PO (10:34)
[2018-04-08] MEDS: CIPROFLOXACIN 400MG/D5W 200 ML IVPB ×2 (10:35→22:20)
[2018-04-08] MEDS: HYDROXYUREA 500 MG CAP PO ×2 (10:36→22:21)
[2018-04-08] MEDS: ENOXAPARIN 30 MG/0.3 ML SYG SC (10:36)
[2018-04-08] MEDS: ARTIFICIAL TEARS 15 ML OPH BOTH EYES ×4 (10:42→22:20)
[2018-04-08] MEDS: POLYETHYLENE GLYCOL 17 GM PACKET PO (10:43)
[2018-04-08] MEDS: ONDANSETRON 4 MG INJ IV ×2 (18:28→22:22)
[2018-04-08] MEDS: JADENU 360 MG PO (22:20)
[2018-04-09] MEDS: DIPHENHYDRAMINE 50 MG INJ IV ×6 (02:24→22:41)
[2018-04-09] MEDS: morphine 10 MG INJ IV ×6 (02:25→22:41)
[2018-04-09 05:56] LABS: ADD MAN DIFF? NO
[2018-04-09 06:07] LABS: WHITE BLOOD COUNT 21.3 10^3/ul (4.8-10.8)
[2018-04-09 06:07] LABS: ABNORMAL IP MESSAGE 1; BASOPHIL # 0.2 10^3/ul (0.0-0.1); EOSINOPHILS # 1.1 10^3/ul (0.0-0.5); EOSINOPHILS % 5.3 % (0.0-7.0); HEMATOCRIT 24.2 % (37.0-47.0); HEMOGLOBIN 8.1 g/dl (12.0-16.0); LYMPHOCYTES # 4.5 10^3/ul (0.8-2.9); LYMPHOCYTES % 20.9 % (15.0-51.0); MEAN CORPUSCULAR HEMOGLOBIN 30.1 pg (29.0-33.0); MEAN CORPUSCULAR HGB CONC 33.5 g/dl (32.0-37.0); MEAN PLATELET VOLUME 11.2 fl (7.4-10.4); MONOCYTE # 1.9 10^3/ul (0.3-0.9); NEUTROPHIL # 13.5 10^3/ul (1.6-7.5); NEUTROPHILS % 63.2 % (39.0-77.0); NUCLEATED RED BLOOD CELLS% 0.1 /100WBC (0.0-0.0); PLATELET COUNT 333 10^3/UL (140-415); RED BLOOD COUNT 2.69 10^6/ul (4.20-5.40); RED CELL DISTRIBUTION WIDTH 17.2 % (11.5-14.5)
[2018-04-09] MEDS: METOCLOPRAMIDE 10 MG INJ IV ×3 (06:21→22:37)
[2018-04-09] MEDS: PANTOPRAZOLE (EC) 40 MG TAB PO (06:21)
[2018-04-09 07:00] LABS: POSITIVE DIFF @See below
[2018-04-09] MEDS ORDERED: METHYLNALTREXONE 12 MG/0.6 ML VIAL SC (09:00)
[2018-04-09] MEDS: ARTIFICIAL TEARS 15 ML OPH BOTH EYES ×4 (09:00→22:37)
[2018-04-09] MEDS: CIPROFLOXACIN 400MG/D5W 200 ML IVPB ×2 (10:17→22:37)
[2018-04-09] MEDS: POLYETHYLENE GLYCOL 17 GM PACKET PO (10:22)
[2018-04-09] MEDS: METHYLNALTREXONE 12 MG/0.6 ML VIAL SC (10:23)
[2018-04-09] MEDS: LUBIPROSTONE 24 MCG CAP PO ×2 (10:23→22:35)
[2018-04-09] MEDS: FOLIC ACID 1 MG TAB PO (10:23)
[2018-04-09] MEDS: CLARITHROMYCIN 500 MG TAB PO ×2 (10:23→22:35)
[2018-04-09] MEDS: FUROSEMIDE 40 MG TAB PO (10:23)
[2018-04-09] MEDS: HYDROXYUREA 500 MG CAP PO ×2 (10:25→22:39)
[2018-04-09] MEDS: ENOXAPARIN 30 MG/0.3 ML SYG SC (10:26)
[2018-04-09 10:30] LABS: ANISOCYTOSIS 1+ (0-0); BASOPHIL #M 0.4 10^3/ul (0.0-0.0); BASOPHILS % (M) 2 % (0-2); EOSINOPHILS % (M) 5 % (0-7); GIANT THROMBO% (M) 6 % (0-0); HYPOCHROMASIA 2+ (0-0); LYMPHOCYTES #M 2.9 10^3/ul (0.8-2.9); LYMPHOCYTES % (M) 14 % (15-51); MONOCYTE #M 0.8 10^3/ul (0.3-0.9); MONOCYTES % (M) 4 % (0-11); PLATELET ESTIMATE NORMAL; POLYCHROMASIA 1+ (0-0); SEGMENTED NEUTROPHILS (M) % 75 % (39-77); SICKLE CELL 1+ (0-0); SMUDGE%M 34 % (0-0); TARGET CELLS 1+ (0-0)
[2018-04-09 13:03] LABS: ADD MAN DIFF? NO
[2018-04-09 13:05] LABS: BASOPHIL # 0.2 10^3/ul (0.0-0.1); BASOPHILS % 1.4 % (0.0-2.0); EOSINOPHILS # 0.9 10^3/ul (0.0-0.5); EOSINOPHILS % 7.8 % (0.0-7.0); HEMATOCRIT 24.2 % (37.0-47.0); LYMPHOCYTES # 4.3 10^3/ul (0.8-2.9); LYMPHOCYTES % 38.7 % (15.0-51.0); MEAN CORPUSCULAR HGB CONC 33.1 g/dl (32.0-37.0); MEAN CORPUSCULAR VOLUME 90.6 fl (82.0-101.0); MONOCYTE # 1.3 10^3/ul (0.3-0.9); MONOCYTES % 11.3 % (0.0-11.0); NEUTROPHIL # 4.5 10^3/ul (1.6-7.5); NEUTROPHILS % 40.3 % (39.0-77.0); NUCLEATED RED BLOOD CELLS% 0.3 /100WBC (0.0-0.0); PLATELET COUNT 336 10^3/UL (140-415); RED BLOOD COUNT 2.67 10^6/ul (4.20-5.40); RED CELL DISTRIBUTION WIDTH 17.1 % (11.5-14.5)
[2018-04-09 13:05] LABS: WHITE BLOOD COUNT 11.1 10^3/ul (4.8-10.8)
[2018-04-09] MEDS: JADENU 360 MG PO (22:36)
[2018-04-10] MEDS: morphine 10 MG INJ IV ×6 (02:30→22:48)
[2018-04-10] MEDS: DIPHENHYDRAMINE 50 MG INJ IV ×6 (02:30→22:47)
[2018-04-10 05:49] LABS: ADD MAN DIFF? NO
[2018-04-10 05:52] LABS: ABNORMAL IP MESSAGE 1; BASOPHIL # 0.2 10^3/ul (0.0-0.1); BASOPHILS % 1.5 % (0.0-2.0); EOSINOPHILS % 9.1 % (0.0-7.0); HEMATOCRIT 25.3 % (37.0-47.0); HEMOGLOBIN 8.2 g/dl (12.0-16.0); LYMPHOCYTES # 5.1 10^3/ul (0.8-2.9); LYMPHOCYTES % 46.3 % (15.0-51.0); MEAN CORPUSCULAR HEMOGLOBIN 29.4 pg (29.0-33.0); MEAN CORPUSCULAR HGB CONC 32.4 g/dl (32.0-37.0); MEAN CORPUSCULAR VOLUME 90.7 fl (82.0-101.0); MEAN PLATELET VOLUME 11.1 fl (7.4-10.4); MONOCYTE # 1.3 10^3/ul (0.3-0.9); NEUTROPHIL # 3.4 10^3/ul (1.6-7.5); NEUTROPHILS % 30.7 % (39.0-77.0); NUCLEATED RED BLOOD CELLS% 0.4 /100WBC (0.0-0.0); PLATELET COUNT 346 10^3/UL (140-415); RED BLOOD COUNT 2.79 10^6/ul (4.20-5.40); RED CELL DISTRIBUTION WIDTH 17.1 % (11.5-14.5)
[2018-04-10 05:54] LABS: POSITIVE DIFF @See below
[2018-04-10] MEDS: PANTOPRAZOLE (EC) 40 MG TAB PO (06:38)
[2018-04-10] MEDS: METOCLOPRAMIDE 10 MG INJ IV ×3 (06:38→22:44)
[2018-04-10] MEDS: POLYETHYLENE GLYCOL 17 GM PACKET PO (10:27)
[2018-04-10] MEDS: LUBIPROSTONE 24 MCG CAP PO ×2 (10:27→22:43)
[2018-04-10] MEDS: FOLIC ACID 1 MG TAB PO (10:28)
[2018-04-10] MEDS: CLARITHROMYCIN 500 MG TAB PO ×2 (10:28→22:44)
[2018-04-10] MEDS: FUROSEMIDE 40 MG TAB PO (10:28)
[2018-04-10] MEDS: METHYLNALTREXONE 12 MG/0.6 ML VIAL SC (10:29)
[2018-04-10] MEDS: CIPROFLOXACIN 400MG/D5W 200 ML IVPB ×2 (10:29→22:45)
[2018-04-10] MEDS: ARTIFICIAL TEARS 15 ML OPH BOTH EYES ×4 (10:29→22:44)
[2018-04-10] MEDS: HYDROXYUREA 500 MG CAP PO ×2 (10:37→22:46)
[2018-04-10] MEDS: ENOXAPARIN 30 MG/0.3 ML SYG SC (10:39)
[2018-04-10] MEDS: ONDANSETRON 4 MG INJ IV ×2 (10:44→18:54)
[2018-04-10] MEDS: BISACODYL (EC) 5 MG TAB PO (15:06)
[2018-04-10] MEDS: JADENU 360 MG PO (22:44)
[2018-04-11] MEDS: ONDANSETRON 4 MG INJ IV (02:51)
[2018-04-11] MEDS: DIPHENHYDRAMINE 50 MG INJ IV ×6 (02:51→22:22)
[2018-04-11] MEDS: morphine 10 MG INJ IV ×6 (02:51→22:22)
[2018-04-11] MEDS: PANTOPRAZOLE (EC) 40 MG TAB PO (06:34)
[2018-04-11] MEDS: METOCLOPRAMIDE 10 MG INJ IV ×3 (06:35→22:22)
[2018-04-11] MEDS: ARTIFICIAL TEARS 15 ML OPH BOTH EYES ×4 (08:50→21:00)
[2018-04-11] MEDS: CIPROFLOXACIN 400MG/D5W 200 ML IVPB ×2 (08:51→21:02)
[2018-04-11] MEDS: LUBIPROSTONE 24 MCG CAP PO ×2 (08:51→22:21)
[2018-04-11] MEDS: POLYETHYLENE GLYCOL 17 GM PACKET PO (08:51)
[2018-04-11] MEDS: METHYLNALTREXONE 12 MG/0.6 ML VIAL SC (08:51)
[2018-04-11] MEDS: CLARITHROMYCIN 500 MG TAB PO ×2 (08:53→22:21)
[2018-04-11] MEDS: FOLIC ACID 1 MG TAB PO (08:54)
[2018-04-11] MEDS: FUROSEMIDE 40 MG TAB PO (08:55)
[2018-04-11] MEDS: HYDROXYUREA 500 MG CAP PO ×2 (08:57→22:23)
[2018-04-11] MEDS: ENOXAPARIN 30 MG/0.3 ML SYG SC (08:58)
[2018-04-11] MEDS: JADENU 360 MG PO (22:29)
[2018-04-12] MEDS: morphine 10 MG INJ IV ×5 (02:25→20:45)
[2018-04-12] MEDS: METOCLOPRAMIDE 10 MG INJ IV ×4 (08:04→22:28)
[2018-04-12] MEDS: PANTOPRAZOLE (EC) 40 MG TAB PO (08:04)
[2018-04-12] MEDS: DIPHENHYDRAMINE 50 MG INJ IV ×4 (08:08→20:44)
[2018-04-12] MEDS: ARTIFICIAL TEARS 15 ML OPH BOTH EYES ×4 (08:15→21:00)
[2018-04-12] MEDS: CIPROFLOXACIN 400MG/D5W 200 ML IVPB ×2 (11:03→20:45)
[2018-04-12] MEDS: POLYETHYLENE GLYCOL 17 GM PACKET PO (11:03)
[2018-04-12] MEDS: ENOXAPARIN 30 MG/0.3 ML SYG SC (11:04)
[2018-04-12] MEDS: FUROSEMIDE 40 MG TAB PO (11:05)
[2018-04-12] MEDS: FOLIC ACID 1 MG TAB PO (11:05)
[2018-04-12] MEDS: HYDROXYUREA 500 MG CAP PO ×2 (11:05→20:48)
[2018-04-12] MEDS: CLARITHROMYCIN 500 MG TAB PO ×2 (11:05→22:28)
[2018-04-12] MEDS: LUBIPROSTONE 24 MCG CAP PO ×2 (11:06→20:40)
[2018-04-12] MEDS: METHYLNALTREXONE 12 MG/0.6 ML VIAL SC (11:06)
[2018-04-12] MEDS: ALTEPLASE (CATHFLO) 2 MG INJ CATHETER (13:01)
[2018-04-12 14:12] LABS: ADD MAN DIFF? NO
[2018-04-12 14:16] LABS: BASOPHIL # 0.1 10^3/ul (0.0-0.1); BASOPHILS % 1.2 % (0.0-2.0); EOSINOPHILS # 0.7 10^3/ul (0.0-0.5); EOSINOPHILS % 8.7 % (0.0-7.0); HEMATOCRIT 22.9 % (37.0-47.0); HEMOGLOBIN 7.5 g/dl (12.0-16.0); LYMPHOCYTES # 3.6 10^3/ul (0.8-2.9); LYMPHOCYTES % 43.9 % (15.0-51.0); MEAN CORPUSCULAR HEMOGLOBIN 29.5 pg (29.0-33.0); MEAN CORPUSCULAR HGB CONC 32.8 g/dl (32.0-37.0); MEAN CORPUSCULAR VOLUME 90.2 fl (82.0-101.0); MEAN PLATELET VOLUME 10.6 fl (7.4-10.4); MONOCYTE # 0.9 10^3/ul (0.3-0.9); MONOCYTES % 10.4 % (0.0-11.0); NEUTROPHIL # 2.9 10^3/ul (1.6-7.5); NEUTROPHILS % 35.3 % (39.0-77.0); NUCLEATED RED BLOOD CELLS% 0.2 /100WBC (0.0-0.0); PLATELET COUNT 350 10^3/UL (140-415); RED BLOOD COUNT 2.54 10^6/ul (4.20-5.40); RED CELL DISTRIBUTION WIDTH 16.8 % (11.5-14.5)
[2018-04-12 14:16] LABS: WHITE BLOOD COUNT 8.2 10^3/ul (4.8-10.8)
[2018-04-12 14:34] LABS: ANION GAP 6 (5-13); BLOOD UREA NITROGEN 13 mg/dl (7-20); CALCIUM 9.1 mg/dl (8.4-10.2); CARBON DIOXIDE 29 mmol/L (21-31); CHLORIDE 102 mmol/L (97-110); CREATININE 0.91 mg/dl (0.44-1.00); Estimated GFR > 60 mL/min (>60); GLUCOSE 167 mg/dl (70-220); POTASSIUM 4.4 mmol/L (3.5-5.1); SODIUM 137 mmol/L (135-144)
[2018-04-12] MEDS: ONDANSETRON 4 MG INJ IV (20:41)
[2018-04-12] MEDS: JADENU 360 MG PO (20:45)
[2018-04-12] MEDS: ACETAMINOPHEN 325 MG TAB PO (23:57)
[2018-04-13] MEDS: DIPHENHYDRAMINE 50 MG INJ IV ×6 (00:35→20:42)
[2018-04-13] MEDS: morphine 10 MG INJ IV ×6 (00:36→20:41)
[2018-04-13 00:52] LABS: IMMEDIATE SPIN CROSSMATCH 1 1
[2018-04-13] MEDS: ONDANSETRON 4 MG INJ IV ×2 (04:33→12:30)
[2018-04-13] MEDS: PANTOPRAZOLE (EC) 40 MG TAB PO ×2 (06:00→08:47)
[2018-04-13] MEDS: METOCLOPRAMIDE 10 MG INJ IV ×5 (06:00→22:00)
[2018-04-13] MEDS: CIPROFLOXACIN 400MG/D5W 200 ML IVPB ×2 (08:46→21:00)
[2018-04-13] MEDS: CLARITHROMYCIN 500 MG TAB PO ×2 (08:46→20:42)
[2018-04-13] MEDS: LUBIPROSTONE 24 MCG CAP PO ×2 (08:46→20:42)
[2018-04-13] MEDS: FOLIC ACID 1 MG TAB PO (08:47)
[2018-04-13] MEDS: FUROSEMIDE 40 MG TAB PO (08:47)
[2018-04-13] MEDS: ARTIFICIAL TEARS 15 ML OPH BOTH EYES ×4 (08:48→20:51)
[2018-04-13] MEDS: METHYLNALTREXONE 12 MG/0.6 ML VIAL SC (08:48)
[2018-04-13] MEDS: POLYETHYLENE GLYCOL 17 GM PACKET PO (08:48)
[2018-04-13] MEDS: HYDROXYUREA 500 MG CAP PO ×2 (08:51→20:50)
[2018-04-13] MEDS: ENOXAPARIN 30 MG/0.3 ML SYG SC (08:52)
[2018-04-13 11:30] LABS: ADD MAN DIFF? NO
[2018-04-13 11:33] LABS: BASOPHIL # 0.2 10^3/ul (0.0-0.1); BASOPHILS % 1.3 % (0.0-2.0); EOSINOPHILS # 0.9 10^3/ul (0.0-0.5); EOSINOPHILS % 7.7 % (0.0-7.0); HEMATOCRIT 27.7 % (37.0-47.0); HEMOGLOBIN 9.2 g/dl (12.0-16.0); LYMPHOCYTES # 4.9 10^3/ul (0.8-2.9); LYMPHOCYTES % 42.5 % (15.0-51.0); MEAN CORPUSCULAR HEMOGLOBIN 29.9 pg (29.0-33.0); MEAN CORPUSCULAR HGB CONC 33.2 g/dl (32.0-37.0); MEAN CORPUSCULAR VOLUME 89.9 fl (82.0-101.0); MEAN PLATELET VOLUME 10.3 fl (7.4-10.4); MONOCYTE # 1.4 10^3/ul (0.3-0.9); MONOCYTES % 12.2 % (0.0-11.0); NEUTROPHIL # 4.2 10^3/ul (1.6-7.5); NUCLEATED RED BLOOD CELLS% 0.3 /100WBC (0.0-0.0); PLATELET COUNT 344 10^3/UL (140-415); RED BLOOD COUNT 3.08 10^6/ul (4.20-5.40); RED CELL DISTRIBUTION WIDTH 16.1 % (11.5-14.5)
[2018-04-13 11:33] LABS: WHITE BLOOD COUNT 11.6 10^3/ul (4.8-10.8)
[2018-04-13] MEDS: JADENU 360 MG PO (20:43)
[2018-04-13] MEDS: HEPARIN (100 UNITS/ML) 5 ML SYG CATHETER (21:57)
== END 2018-04-13 22:30 | disposition home or self-care (01) | DRG 871 ==
LOC: E/R 11:08 → 2NE 17:57
PROC: 30243N1 Transfusion of Nonautologous Red Blood Cells into Central Vein, Percutaneous Approach (ICD-10-PCS; principal; 2018-03-21)
DX: A41.9 Sepsis, unspecified organism (principal); D57.00 Hb-SS disease with crisis, unspecified; N13.30 Unspecified hydronephrosis; R16.0 Hepatomegaly, not elsewhere classified; D73.0 Hyposplenism; E83.111 Hemochromatosis due to repeated red blood cell transfusions; T80.89XA Other complications following infusion, transfusion and therapeutic injection, initial encounter; K76.0 Fatty (change of) liver, not elsewhere classified; R74.0 Nonspecific elevation of levels of transaminase and lactic acid dehydrogenase [LDH]; R11.0 Nausea; R10.13 Epigastric pain; K59.03 Drug induced constipation; T40.2X5A Adverse effect of other opioids, initial encounter; Z87.440 Personal history of urinary (tract) infections; Z86.718 Personal history of other venous thrombosis and embolism; Z87.442 Personal history of urinary calculi; Z90.49 Acquired absence of other specified parts of digestive tract; Z95.828 Presence of other vascular implants and grafts; Z87.891 Personal history of nicotine dependence
CPT/HCPCS: 36415; 36430; 71045; 74018; 76536; 76700; 80048; 80053; 80076; 80202; 81001; 81025; 82565; 82728; 83605; 83690; 84520; 84703; 85025; 86644; 86704; 86803; 86850; 86900; 86901; 86920; 86945; 87040; 87081; 87086; 87340; 96374; 96375; 96376; 99285-25

== ENCOUNTER 2018-04-24 05:42 | Inpatient (IN) | payer OTHER ==
[2018-04-24 06:28] LABS: ADD MAN DIFF? NO
[2018-04-24 06:37] LABS: WHITE BLOOD COUNT 17.8 10^3/ul (4.8-10.8)
[2018-04-24 06:37] LABS: BASOPHIL # 0.1 10^3/ul (0.0-0.1); BASOPHILS % 0.7 % (0.0-2.0); EOSINOPHILS # 0.1 10^3/ul (0.0-0.5); EOSINOPHILS % 0.7 % (0.0-7.0); HEMATOCRIT 25.6 % (37.0-47.0); HEMOGLOBIN 8.5 g/dl (12.0-16.0); LYMPHOCYTES # 1.2 10^3/ul (0.8-2.9); LYMPHOCYTES % 6.8 % (15.0-51.0); MEAN CORPUSCULAR HEMOGLOBIN 30.7 pg (29.0-33.0); MEAN CORPUSCULAR HGB CONC 33.2 g/dl (32.0-37.0); MEAN CORPUSCULAR VOLUME 92.4 fl (82.0-101.0); MEAN PLATELET VOLUME 10.9 fl (7.4-10.4); MONOCYTES % 5.5 % (0.0-11.0); NEUTROPHIL # 15.1 10^3/ul (1.6-7.5); NEUTROPHILS % 85.1 % (39.0-77.0); NUCLEATED RED BLOOD CELLS # 0.1 10^3/ul (0.0-0.0); NUCLEATED RED BLOOD CELLS% 0.7 /100WBC (0.0-0.0); PLATELET COUNT 319 10^3/UL (140-415); RED BLOOD COUNT 2.77 10^6/ul (4.20-5.40); RED CELL DISTRIBUTION WIDTH 17.3 % (11.5-14.5)
[2018-04-24] MEDS: SOD CHLORIDE 0.9% 1,000 ML IV (06:38)
[2018-04-24] MEDS: ACETAMINOPHEN 325 MG TAB PO (06:38)
[2018-04-24 06:50] LABS: INR 1.03; PROTIME 13.6 Sec (11.9-14.9); PT RATIO 1.1
[2018-04-24 06:51] LABS: PARTIAL THROMBOPLASTIN TIME 30.9 Sec (23.0-35.0)
[2018-04-24 06:53] LABS: ALANINE AMINOTRANSFERASE 72 IU/L (13-69); ALBUMIN 4.2 g/dl (3.3-4.9); ALBUMIN/GLOBULIN RATIO 1.07; ALKALINE PHOSPHATASE 132 IU/L (42-121); ANION GAP 12 (5-13); ASPARTATE AMINO TRANSFERASE 76 IU/L (15-46); BILIRUBIN,INDIRECT 1.5 mg/dl (0-1.1); BILIRUBIN,TOTAL 1.5 mg/dl (0.2-1.3); BLOOD UREA NITROGEN 14 mg/dl (7-20); CALCIUM 8.9 mg/dl (8.4-10.2); CARBON DIOXIDE 23 mmol/L (21-31); CHLORIDE 106 mmol/L (97-110); CREATININE 0.87 mg/dl (0.44-1.00); Estimated GFR > 60 mL/min (>60); GLUCOSE 106 mg/dl (70-220); SODIUM 141 mmol/L (135-144); TOTAL PROTEIN 8.1 g/dl (6.1-8.1)
[2018-04-24] MEDS: SODIUM CHLORIDE 0.9% 1L BAG IV* (06:57)
[2018-04-24] MEDS: morphine 10 MG INJ IV ×4 (06:57→19:55)
[2018-04-24] MEDS: ONDANSETRON 4 MG INJ IV (06:57)
[2018-04-24 07:03] LABS: TROPONIN-I < 0.012 ng/ml (0.000-0.120)
[2018-04-24] MEDS: DIPHENHYDRAMINE 50 MG INJ IV ×2 (07:11→20:17)
[2018-04-24] MEDS ORDERED: ONDANSETRON 4 MG INJ IV (07:30)
[2018-04-24] MEDS ORDERED: ACETAMINOPHEN 325 MG TAB PO (07:30)
[2018-04-24 07:56] LABS: ADD UMIC NO; UR ASCORBIC ACID NEGATIVE (NEGATIVE); UR BILIRUBIN (Dip) NEGATIVE (NEGATIVE); UR BLOOD (Dip) NEGATIVE (NEGATIVE); UR CLARITY CLEAR (CLEAR); UR COLOR YELLOW (YELLOW); UR GLUCOSE (Dip) NEGATIVE (NEGATIVE); UR KETONES (Dip) NEGATIVE (NEGATIVE); UR LEUKOCYTE ESTERASE (Dip) NEGATIVE Leu/ul (NEGATIVE); UR NITRITE (Dip) NEGATIVE (NEGATIVE); UR SPECIFIC GRAVITY (Dip) 1.011 (1.003-1.030); UR TOTAL PROTEIN (Dip) NEGATIVE (NEGATIVE); UR UROBILINOGEN (Dip) NEGATIVE (NEGATIVE)
[2018-04-24] MEDS ORDERED: DIPHENHYDRAMINE 25 MG CAP PO (09:30)
[2018-04-24] MEDS: DEXTROSE 5%-0.45% NACL 1,000 ML IV ×2 (09:30→23:15)
[2018-04-24] MEDS ORDERED: HYDROCODONE/APAP (5/325) TAB PO ×3 (10:00→12:00)
[2018-04-24] MEDS: HYDROXYUREA 500 MG CAP PO ×2 (10:00→20:43)
[2018-04-24] MEDS ORDERED: LUBIPROSTONE 24 MCG CAP PO (10:00)
[2018-04-24] MEDS ORDERED: ZOLPIDEM 5 MG TAB PO (10:00)
[2018-04-24 11:39] LABS: LACTIC ACID 1.6 mmol/L (0.5-2.0)
[2018-04-24] MEDS: ACETAMINOPHEN 500 MG TAB PO ×2 (13:31→20:16)
[2018-04-24] MEDS: CIPROFLOXACIN 500 MG TAB PO (18:02)
[2018-04-24] MEDS: CLARITHROMYCIN 500 MG TAB PO (20:43)
[2018-04-24] MEDS: MEROPENEM 1 GM/50ML(PMX) 50 ML IVPB (23:15)
[2018-04-24] MEDS: CIPROFLOXACIN 400MG/D5W 200 ML IVPB (23:15)
[2018-04-25] MEDS: morphine 10 MG INJ IV ×5 (00:13→20:30)
[2018-04-25] MEDS: MEROPENEM 1 GM/50ML(PMX) 50 ML IVPB ×3 (05:50→21:37)
[2018-04-25] MEDS: DIPHENHYDRAMINE 50 MG INJ IV ×3 (08:34→20:31)
[2018-04-25] MEDS: CLARITHROMYCIN 500 MG TAB PO ×2 (08:37→20:29)
[2018-04-25] MEDS: HYDROXYUREA 500 MG CAP PO ×2 (08:38→20:43)
[2018-04-25] MEDS: FOLIC ACID 1 MG TAB PO (08:39)
[2018-04-25] MEDS: CIPROFLOXACIN 400MG/D5W 200 ML IVPB ×2 (10:49→22:51)
[2018-04-25] MEDS: ACETAMINOPHEN 500 MG TAB PO (11:18)
[2018-04-25] MEDS: DEXTROSE 5%-0.45% NACL 1,000 ML IV ×2 (13:57→20:29)
[2018-04-26] MEDS: morphine 10 MG INJ IV ×6 (00:38→22:18)
[2018-04-26] MEDS: ONDANSETRON 4 MG TAB PO (00:39)
[2018-04-26] MEDS: DIPHENHYDRAMINE 50 MG INJ IV ×6 (00:39→22:19)
[2018-04-26] MEDS: MEROPENEM 1 GM/50ML(PMX) 50 ML IVPB ×3 (05:27→21:51)
[2018-04-26] MEDS: CLARITHROMYCIN 500 MG TAB PO ×2 (08:35→21:51)
[2018-04-26] MEDS: FOLIC ACID 1 MG TAB PO (08:35)
[2018-04-26] MEDS: HYDROXYUREA 500 MG CAP PO ×2 (08:39→22:39)
[2018-04-26] MEDS: CIPROFLOXACIN 400MG/D5W 200 ML IVPB ×2 (11:27→22:40)
[2018-04-26] MEDS: DEXTROSE 5%-0.45% NACL 1,000 ML IV ×2 (11:27→16:19)
[2018-04-26] MEDS: ACETAMINOPHEN 500 MG TAB PO (14:03)
[2018-04-26 15:06] LABS: ABNORMAL IP MESSAGE 1; HEMATOCRIT 20.5 % (37.0-47.0); MEAN CORPUSCULAR HEMOGLOBIN 29.8 pg (29.0-33.0); MEAN CORPUSCULAR HGB CONC 32.7 g/dl (32.0-37.0); MEAN CORPUSCULAR VOLUME 91.1 fl (82.0-101.0); MEAN PLATELET VOLUME 11.2 fl (7.4-10.4); NUCLEATED RED BLOOD CELLS% 1.2 /100WBC (0.0-0.0); PLATELET COUNT 169 10^3/UL (140-415); RED BLOOD COUNT 2.25 10^6/ul (4.20-5.40)
[2018-04-26 15:06] LABS: WHITE BLOOD COUNT 10.4 10^3/ul (4.8-10.8)
[2018-04-26 15:26] LABS: HEMOGLOBIN 6.7 g/dl (12.0-16.0); POSITIVE DIFF @See below
[2018-04-26 15:27] LABS: ADD MAN DIFF? YES
[2018-04-26 15:44] LABS: ANION GAP 9 (5-13); BLOOD UREA NITROGEN 10 mg/dl (7-20); CALCIUM 8.6 mg/dl (8.4-10.2); CARBON DIOXIDE 25 mmol/L (21-31); CHLORIDE 106 mmol/L (97-110); CREATININE 0.65 mg/dl (0.44-1.00); Estimated GFR > 60 mL/min (>60); GLUCOSE 95 mg/dl (70-220); POTASSIUM 4.2 mmol/L (3.5-5.1); SODIUM 140 mmol/L (135-144)
[2018-04-26 16:17] LABS: ANISOCYTOSIS 1+ (0-0); BAND NEUTROPHILS #M 0.3 10^3/ul (0.0-0.6); BAND NEUTROPHILS % (M) 3 % (0-4); BASOPHIL #M 0.1 10^3/ul (0.0-0.0); BASOPHILS % (M) 1 % (0-2); EOSINOPHILS % (M) 8 % (0-7); ERYTHROBLAST% (NRBC) (M) 1 % (0-0); GIANT THROMBO% (M) 2 % (0-0); HYPOCHROMASIA 1+ (0-0); LYMPHOCYTES #M 4.5 10^3/ul (0.8-2.9); LYMPHOCYTES % (M) 44 % (15-51); MONOCYTE #M 0.7 10^3/ul (0.3-0.9); MONOCYTES % (M) 7 % (0-11); MYELOCYTES #M 0.2 10^3/ul (0.0-0.0); MYELOCYTES % (M) 2 % (0-0); PLATELET ESTIMATE NORMAL; POIKILOCYTOSIS 2+ (0-0); POLYCHROMASIA 2+ (0-0); SEG NEUT #M 3.7 10^3/ul (1.6-7.5); SEGMENTED NEUTROPHILS (M) % 35 % (39-77); SICKLE CELL 2+ (0-0); SMUDGE%M 6 % (0-0)
[2018-04-26] MEDS: JADENU 360 MG PO (22:19)
[2018-04-26] MEDS: BISACODYL (EC) 5 MG TAB PO (22:26)
[2018-04-27] MEDS: ONDANSETRON 4 MG INJ IV ×2 (02:16→22:33)
[2018-04-27] MEDS: DIPHENHYDRAMINE 50 MG INJ IV ×6 (02:17→22:34)
[2018-04-27] MEDS: ACETAMINOPHEN 500 MG TAB PO (02:17)
[2018-04-27] MEDS: morphine 10 MG INJ IV ×6 (02:17→22:34)
[2018-04-27] MEDS: MEROPENEM 1 GM/50ML(PMX) 50 ML IVPB ×3 (06:20→21:12)
[2018-04-27] MEDS: FUROSEMIDE 20 MG TAB PO (09:26)
[2018-04-27] MEDS: CLARITHROMYCIN 500 MG TAB PO ×2 (09:26→21:09)
[2018-04-27] MEDS: FOLIC ACID 1 MG TAB PO (09:26)
[2018-04-27 09:41] LABS: WHITE BLOOD COUNT 10.1 10^3/ul (4.8-10.8)
[2018-04-27 09:41] LABS: HEMATOCRIT 23.7 % (37.0-47.0); HEMOGLOBIN 7.8 g/dl (12.0-16.0); MEAN CORPUSCULAR HEMOGLOBIN 29.2 pg (29.0-33.0); MEAN CORPUSCULAR HGB CONC 32.9 g/dl (32.0-37.0); MEAN CORPUSCULAR VOLUME 88.8 fl (82.0-101.0); NUCLEATED RED BLOOD CELLS% 1.9 /100WBC (0.0-0.0); PLATELET COUNT 207 10^3/UL (140-415); RED BLOOD COUNT 2.67 10^6/ul (4.20-5.40); RED CELL DISTRIBUTION WIDTH 17.9 % (11.5-14.5)
[2018-04-27 09:43] LABS: ADD MAN DIFF? YES
[2018-04-27 09:53] LABS: ANION GAP 7 (5-13); BLOOD UREA NITROGEN 11 mg/dl (7-20); CALCIUM 8.7 mg/dl (8.4-10.2); CARBON DIOXIDE 30 mmol/L (21-31); CHLORIDE 104 mmol/L (97-110); CREATININE 0.78 mg/dl (0.44-1.00); Estimated GFR > 60 mL/min (>60); GLUCOSE 102 mg/dl (70-220); POTASSIUM 4.3 mmol/L (3.5-5.1); SODIUM 141 mmol/L (135-144)
[2018-04-27] MEDS: CIPROFLOXACIN 400MG/D5W 200 ML IVPB ×2 (10:16→22:37)
[2018-04-27 10:17] LABS: ANISOCYTOSIS 1+ (0-0); BAND NEUTROPHILS #M 0.2 10^3/ul (0.0-0.6); BAND NEUTROPHILS % (M) 2 % (0-4); BASOPHIL #M 0.3 10^3/ul (0.0-0.0); BASOPHILS % (M) 3 % (0-2); EOSINOPHILS % (M) 10 % (0-7); ERYTHROBLAST% (NRBC) (M) 14 % (0-0); GIANT THROMBO% (M) 4 % (0-0); LYMPHOCYTES #M 6.3 10^3/ul (0.8-2.9); LYMPHOCYTES % (M) 63 % (15-51); MONOCYTE #M 0.2 10^3/ul (0.3-0.9); MONOCYTES % (M) 2 % (0-11); PLATELET ESTIMATE NORMAL; POIKILOCYTOSIS 1+ (0-0); POLYCHROMASIA 1+ (0-0); REACTIVE LYMPHOCYTES #M 0.7 10^3/ul (0.0-0.0); REACTIVE LYMPHOCYTES% (M) 7 % (0-0); SEG NEUT #M 1.3 10^3/ul (1.6-7.5); SEGMENTED NEUTROPHILS (M) % 13 % (39-77); SICKLE CELL 1+ (0-0); SMUDGE%M 73 % (0-0); TARGET CELLS 1+ (0-0)
[2018-04-27 10:32] LABS: HIV 1&2 ANTIBODY NEGATIVE (NEGATIVE)
[2018-04-27] MEDS: HYDROXYUREA 500 MG CAP PO ×2 (10:48→21:12)
[2018-04-27] MEDS: DEXTROSE 5%-0.45% NACL 1,000 ML IV (18:42)
[2018-04-27] MEDS: SENNA TAB PO (21:10)
[2018-04-27] MEDS: JADENU 360 MG PO (21:13)
[2018-04-27] MEDS: LUBIPROSTONE 24 MCG CAP PO (22:33)
[2018-04-28] MEDS: morphine 10 MG INJ IV ×6 (02:33→22:39)
[2018-04-28] MEDS: DIPHENHYDRAMINE 50 MG INJ IV ×6 (02:33→22:39)
[2018-04-28] MEDS: MEROPENEM 1 GM/50ML(PMX) 50 ML IVPB ×3 (06:39→22:40)
[2018-04-28] MEDS: CLARITHROMYCIN 500 MG TAB PO ×2 (09:10→23:03)
[2018-04-28] MEDS: SENNA TAB PO ×2 (09:10→22:34)
[2018-04-28] MEDS: FUROSEMIDE 20 MG TAB PO (09:10)
[2018-04-28] MEDS: LUBIPROSTONE 24 MCG CAP PO ×2 (09:11→22:39)
[2018-04-28] MEDS: FOLIC ACID 1 MG TAB PO (09:11)
[2018-04-28] MEDS: HYDROXYUREA 500 MG CAP PO ×2 (09:12→22:37)
[2018-04-28] MEDS: CIPROFLOXACIN 400MG/D5W 200 ML IVPB ×2 (10:39→23:42)
[2018-04-28] MEDS: DEXTROSE 5%-0.45% NACL 1,000 ML IV (12:36)
[2018-04-28 13:24] LABS: ADD MAN DIFF? NO
[2018-04-28 13:26] LABS: WHITE BLOOD COUNT 9.4 10^3/ul (4.8-10.8)
[2018-04-28 13:26] LABS: BASOPHIL # 0.1 10^3/ul (0.0-0.1); BASOPHILS % 0.7 % (0.0-2.0); EOSINOPHILS # 0.9 10^3/ul (0.0-0.5); EOSINOPHILS % 9.8 % (0.0-7.0); HEMOGLOBIN 7.5 g/dl (12.0-16.0); LYMPHOCYTES # 4.5 10^3/ul (0.8-2.9); LYMPHOCYTES % 48.2 % (15.0-51.0); MEAN CORPUSCULAR HEMOGLOBIN 29.4 pg (29.0-33.0); MEAN CORPUSCULAR HGB CONC 32.6 g/dl (32.0-37.0); MEAN CORPUSCULAR VOLUME 90.2 fl (82.0-101.0); MONOCYTES % 10.5 % (0.0-11.0); NEUTROPHIL # 2.9 10^3/ul (1.6-7.5); NEUTROPHILS % 30.3 % (39.0-77.0); NUCLEATED RED BLOOD CELLS # 0.1 10^3/ul (0.0-0.0); NUCLEATED RED BLOOD CELLS% 1.1 /100WBC (0.0-0.0); PLATELET COUNT 234 10^3/UL (140-415); RED BLOOD COUNT 2.55 10^6/ul (4.20-5.40); RED CELL DISTRIBUTION WIDTH 18.5 % (11.5-14.5)
[2018-04-28 13:44] LABS: ANION GAP 7 (5-13); BLOOD UREA NITROGEN 10 mg/dl (7-20); CALCIUM 8.9 mg/dl (8.4-10.2); CARBON DIOXIDE 28 mmol/L (21-31); CHLORIDE 105 mmol/L (97-110); CREATININE 0.68 mg/dl (0.44-1.00); Estimated GFR > 60 mL/min (>60); GLUCOSE 117 mg/dl (70-220); POTASSIUM 4.4 mmol/L (3.5-5.1); SODIUM 140 mmol/L (135-144)
[2018-04-28] MEDS: ONDANSETRON 4 MG INJ IV (18:31)
[2018-04-29] MEDS: JADENU 360 MG PO ×2 (01:01→21:18)
[2018-04-29] MEDS: DIPHENHYDRAMINE 50 MG INJ IV ×7 (02:47→23:51)
[2018-04-29] MEDS: morphine 10 MG INJ IV ×6 (02:47→23:51)
[2018-04-29] MEDS: MEROPENEM 1 GM/50ML(PMX) 50 ML IVPB (06:11)
[2018-04-29] MEDS: LUBIPROSTONE 24 MCG CAP PO ×2 (09:23→21:14)
[2018-04-29] MEDS: SENNA TAB PO ×2 (09:23→21:15)
[2018-04-29] MEDS: CLARITHROMYCIN 500 MG TAB PO ×2 (09:23→21:14)
[2018-04-29] MEDS: FUROSEMIDE 20 MG TAB PO (09:26)
[2018-04-29] MEDS: FOLIC ACID 1 MG TAB PO (09:26)
[2018-04-29] MEDS: HYDROXYUREA 500 MG CAP PO ×2 (09:27→21:18)
[2018-04-29] MEDS: ENOXAPARIN 30 MG/0.3 ML SYG SC (09:28)
[2018-04-29] MEDS: CIPROFLOXACIN 400MG/D5W 200 ML IVPB (11:15)
[2018-04-29 13:16] LABS: IMMEDIATE SPIN CROSSMATCH 1 2
[2018-04-29] MEDS: ACETAMINOPHEN 500 MG TAB PO (13:21)
[2018-04-29] MEDS: ONDANSETRON 4 MG INJ IV (15:41)
[2018-04-29] MEDS: TRIMETHOPRIM/SULFAMETHOXAZOLE 20 ML in DEXTROSE 5% 500 ML IVPB (17:00)
[2018-04-29] MEDS: FAMOTIDINE 20 MG TAB PO (21:24)
[2018-04-29] MEDS: BISACODYL (EC) 5 MG TAB PO (21:30)
[2018-04-30] MEDS: TRIMETHOPRIM/SULFAMETHOXAZOLE 20 ML in DEXTROSE 5% 500 ML IVPB ×3 (01:50→18:09)
[2018-04-30] MEDS: DIPHENHYDRAMINE 50 MG INJ IV ×5 (03:59→22:02)
[2018-04-30] MEDS: morphine 10 MG INJ IV ×5 (03:59→22:03)
[2018-04-30] MEDS ORDERED: DOXYCYCLINE 100 MG in SOD CHLORIDE 0.9% 250 ML IVPB (09:00)
[2018-04-30] MEDS: LUBIPROSTONE 24 MCG CAP PO ×2 (10:01→21:04)
[2018-04-30] MEDS: CLARITHROMYCIN 500 MG TAB PO ×2 (10:01→21:04)
[2018-04-30] MEDS: SENNA TAB PO ×2 (10:01→21:04)
[2018-04-30] MEDS: FAMOTIDINE 20 MG TAB PO (10:01)
[2018-04-30] MEDS: FOLIC ACID 1 MG TAB PO (10:01)
[2018-04-30] MEDS: FUROSEMIDE 20 MG TAB PO (10:03)
[2018-04-30] MEDS: HYDROXYUREA 500 MG CAP PO ×2 (10:09→21:06)
[2018-04-30] MEDS: ENOXAPARIN 30 MG/0.3 ML SYG SC (10:09)
[2018-04-30] MEDS: LINEZOLID 600 MG/D5W (PMX) 300 ML IVPB (12:11)
[2018-04-30] MEDS: BISACODYL (EC) 5 MG TAB PO (14:27)
[2018-04-30] MEDS: IBUPROFEN 200 MG TAB PO (14:28)
[2018-04-30] MEDS: ONDANSETRON 4 MG INJ IV (18:21)
[2018-04-30] MEDS: JADENU 360 MG PO (21:06)
[2018-05-01] MEDS: TRIMETHOPRIM/SULFAMETHOXAZOLE 20 ML in DEXTROSE 5% 500 ML IVPB ×3 (01:02→18:17)
[2018-05-01] MEDS: morphine 10 MG INJ IV ×6 (02:07→22:42)
[2018-05-01] MEDS: DIPHENHYDRAMINE 50 MG INJ IV ×6 (02:07→22:42)
[2018-05-01] MEDS: FAMOTIDINE 20 MG TAB PO (09:58)
[2018-05-01] MEDS: LUBIPROSTONE 24 MCG CAP PO ×2 (09:58→20:50)
[2018-05-01] MEDS: SENNA TAB PO ×2 (09:58→20:50)
[2018-05-01] MEDS: ONDANSETRON 4 MG INJ IV (09:58)
[2018-05-01] MEDS: CLARITHROMYCIN 500 MG TAB PO ×2 (09:58→20:50)
[2018-05-01] MEDS: FUROSEMIDE 20 MG TAB PO (09:59)
[2018-05-01] MEDS: HYDROXYUREA 500 MG CAP PO ×2 (10:00→20:54)
[2018-05-01] MEDS: ENOXAPARIN 30 MG/0.3 ML SYG SC (10:00)
[2018-05-01 10:04] LABS: ADD MAN DIFF? NO
[2018-05-01 10:05] LABS: BASOPHIL # 0.1 10^3/ul (0.0-0.1); EOSINOPHILS # 0.9 10^3/ul (0.0-0.5); EOSINOPHILS % 8.8 % (0.0-7.0); HEMOGLOBIN 9.2 g/dl (12.0-16.0); LYMPHOCYTES % 37.2 % (15.0-51.0); MEAN CORPUSCULAR HEMOGLOBIN 29.3 pg (29.0-33.0); MEAN CORPUSCULAR HGB CONC 32.9 g/dl (32.0-37.0); MEAN CORPUSCULAR VOLUME 89.2 fl (82.0-101.0); MEAN PLATELET VOLUME 10.4 fl (7.4-10.4); MONOCYTES % 9.1 % (0.0-11.0); NEUTROPHIL # 4.6 10^3/ul (1.6-7.5); NEUTROPHILS % 43.1 % (39.0-77.0); NUCLEATED RED BLOOD CELLS # 0.1 10^3/ul (0.0-0.0); NUCLEATED RED BLOOD CELLS% 0.9 /100WBC (0.0-0.0); PLATELET COUNT 281 10^3/UL (140-415); RED BLOOD COUNT 3.14 10^6/ul (4.20-5.40); RED CELL DISTRIBUTION WIDTH 17.8 % (11.5-14.5)
[2018-05-01 10:05] LABS: WHITE BLOOD COUNT 10.7 10^3/ul (4.8-10.8)
[2018-05-01] MEDS: FOLIC ACID 1 MG TAB PO (10:08)
[2018-05-01] MEDS: LINEZOLID 600 MG/D5W (PMX) 300 ML IVPB ×2 (12:55→23:30)
[2018-05-01] MEDS: METHYLNALTREXONE 12 MG/0.6 ML VIAL SC (14:47)
[2018-05-01] MEDS: JADENU 360 MG PO (20:50)
[2018-05-01] MEDS: BISACODYL (EC) 5 MG TAB PO (21:02)
[2018-05-01] MEDS: SOD CHLORIDE 0.9% 1,000 ML IV (22:07)
[2018-05-02] MEDS: TRIMETHOPRIM/SULFAMETHOXAZOLE 20 ML in DEXTROSE 5% 500 ML IVPB ×4 (01:28→18:28)
[2018-05-02] MEDS: ZOLPIDEM 5 MG TAB PO (01:28)
[2018-05-02] MEDS: DIPHENHYDRAMINE 50 MG INJ IV ×6 (02:49→22:41)
[2018-05-02] MEDS: morphine 10 MG INJ IV ×6 (02:50→22:41)
[2018-05-02] MEDS: SOD CHLORIDE 0.9% 1,000 ML IV ×3 (07:30→22:42)
[2018-05-02] MEDS: FUROSEMIDE 20 MG TAB PO (09:00)
[2018-05-02] MEDS: METHYLNALTREXONE 12 MG/0.6 ML VIAL SC (09:46)
[2018-05-02] MEDS: CLARITHROMYCIN 500 MG TAB PO ×2 (09:46→20:53)
[2018-05-02] MEDS: FOLIC ACID 1 MG TAB PO (09:46)
[2018-05-02] MEDS: SENNA TAB PO ×2 (09:46→20:54)
[2018-05-02] MEDS: FAMOTIDINE 20 MG TAB PO (09:46)
[2018-05-02] MEDS: LUBIPROSTONE 24 MCG CAP PO ×2 (09:46→20:53)
[2018-05-02] MEDS: HYDROXYUREA 500 MG CAP PO ×2 (09:48→20:56)
[2018-05-02] MEDS: ENOXAPARIN 30 MG/0.3 ML SYG SC (09:48)
[2018-05-02 10:35] LABS: ANION GAP 10 (5-13); BLOOD UREA NITROGEN 13 mg/dl (7-20); CALCIUM 8.9 mg/dl (8.4-10.2); CARBON DIOXIDE 24 mmol/L (21-31); CHLORIDE 104 mmol/L (97-110); CREATININE 0.95 mg/dl (0.44-1.00); Estimated GFR > 60 mL/min (>60); GLUCOSE 94 mg/dl (70-220); POTASSIUM 5.7 mmol/L (3.5-5.1); SODIUM 138 mmol/L (135-144)
[2018-05-02] MEDS: LINEZOLID 600 MG/D5W (PMX) 300 ML IVPB ×2 (14:09→23:15)
[2018-05-02] MEDS: ONDANSETRON 4 MG INJ IV (20:52)
[2018-05-02] MEDS: JADENU 360 MG PO (20:54)
[2018-05-02] MEDS: PNEUMOC 13-VAL CONJ-DIP CRM/PF 0.5 ML SYR IM* (23:40)
[2018-05-03] MEDS: NA POLYST SULFON 15 GM/60 ML BTL PO ×2 (01:00→19:05)
[2018-05-03] MEDS: TRIMETHOPRIM/SULFAMETHOXAZOLE 20 ML in DEXTROSE 5% 500 ML IVPB ×4 (01:56→21:58)
[2018-05-03] MEDS: DIPHENHYDRAMINE 50 MG INJ IV ×6 (02:35→22:35)
[2018-05-03] MEDS: morphine 10 MG INJ IV ×6 (02:36→22:33)
[2018-05-03] MEDS: ZOLPIDEM 5 MG TAB PO ×2 (02:44→23:16)
[2018-05-03 08:12] LABS: ADD MAN DIFF? NO
[2018-05-03 08:13] LABS: WHITE BLOOD COUNT 10.5 10^3/ul (4.8-10.8)
[2018-05-03 08:13] LABS: BASOPHIL # 0.1 10^3/ul (0.0-0.1); EOSINOPHILS % 9.7 % (0.0-7.0); HEMATOCRIT 26.5 % (37.0-47.0); HEMOGLOBIN 8.7 g/dl (12.0-16.0); LYMPHOCYTES # 4.3 10^3/ul (0.8-2.9); MEAN CORPUSCULAR HEMOGLOBIN 29.4 pg (29.0-33.0); MEAN CORPUSCULAR HGB CONC 32.8 g/dl (32.0-37.0); MEAN CORPUSCULAR VOLUME 89.5 fl (82.0-101.0); MONOCYTE # 1.1 10^3/ul (0.3-0.9); MONOCYTES % 10.2 % (0.0-11.0); NEUTROPHIL # 3.9 10^3/ul (1.6-7.5); NEUTROPHILS % 37.2 % (39.0-77.0); NUCLEATED RED BLOOD CELLS% 0.4 /100WBC (0.0-0.0); PLATELET COUNT 300 10^3/UL (140-415); RED BLOOD COUNT 2.96 10^6/ul (4.20-5.40)
[2018-05-03] MEDS: FOLIC ACID 1 MG TAB PO (09:46)
[2018-05-03] MEDS: LUBIPROSTONE 24 MCG CAP PO ×2 (09:46→22:40)
[2018-05-03] MEDS: SENNA TAB PO ×2 (09:46→22:40)
[2018-05-03] MEDS: FAMOTIDINE 20 MG TAB PO (09:46)
[2018-05-03] MEDS: CLARITHROMYCIN 500 MG TAB PO ×2 (09:46→22:40)
[2018-05-03] MEDS: FUROSEMIDE 20 MG TAB PO (09:47)
[2018-05-03] MEDS: METHYLNALTREXONE 12 MG/0.6 ML VIAL SC (09:47)
[2018-05-03] MEDS: HYDROXYUREA 500 MG CAP PO ×2 (09:47→22:43)
[2018-05-03] MEDS: ENOXAPARIN 30 MG/0.3 ML SYG SC (09:48)
[2018-05-03] MEDS: ONDANSETRON 4 MG INJ IV ×3 (10:36→22:34)
[2018-05-03] MEDS: LINEZOLID 600 MG/D5W (PMX) 300 ML IVPB ×2 (13:15→16:52)
[2018-05-03 13:19] LABS: ANION GAP 11 (5-13); BLOOD UREA NITROGEN 12 mg/dl (7-20); CALCIUM 8.8 mg/dl (8.4-10.2); CARBON DIOXIDE 22 mmol/L (21-31); CHLORIDE 104 mmol/L (97-110); CREATININE 1.02 mg/dl (0.44-1.00); Estimated GFR > 60 mL/min (>60); GLUCOSE 95 mg/dl (70-220); SODIUM 137 mmol/L (135-144)
[2018-05-03] MEDS: JADENU 360 MG PO (22:41)
[2018-05-03] MEDS: SOD CHLORIDE 0.9% 1,000 ML IV (23:30)
[2018-05-04] MEDS: DIPHENHYDRAMINE 50 MG INJ IV ×5 (03:40→20:31)
[2018-05-04] MEDS: ONDANSETRON 4 MG INJ IV ×5 (03:40→22:03)
[2018-05-04] MEDS: morphine 10 MG INJ IV ×5 (03:40→20:31)
[2018-05-04] MEDS: LINEZOLID 600 MG/D5W (PMX) 300 ML IVPB ×2 (04:46→16:39)
[2018-05-04] MEDS: TRIMETHOPRIM/SULFAMETHOXAZOLE 20 ML in DEXTROSE 5% 500 ML IVPB ×3 (06:30→21:59)
[2018-05-04] MEDS: SENNA TAB PO ×2 (08:38→21:51)
[2018-05-04] MEDS: CLARITHROMYCIN 500 MG TAB PO ×2 (08:38→21:51)
[2018-05-04] MEDS: FAMOTIDINE 20 MG TAB PO (08:39)
[2018-05-04] MEDS: FUROSEMIDE 20 MG TAB PO (08:39)
[2018-05-04] MEDS: LUBIPROSTONE 24 MCG CAP PO ×2 (08:39→21:51)
[2018-05-04] MEDS: METHYLNALTREXONE 12 MG/0.6 ML VIAL SC (08:39)
[2018-05-04] MEDS: ENOXAPARIN 30 MG/0.3 ML SYG SC (08:46)
[2018-05-04] MEDS: HYDROXYUREA 500 MG CAP PO ×2 (08:47→21:53)
[2018-05-04] MEDS: FOLIC ACID 1 MG TAB PO (12:30)
[2018-05-04] MEDS: SOD CHLORIDE 0.9% 1,000 ML IV (19:30)
[2018-05-04] MEDS: JADENU 360 MG PO (21:51)
[2018-05-05] MEDS: ZOLPIDEM 5 MG TAB PO (00:37)
[2018-05-05] MEDS: DIPHENHYDRAMINE 50 MG INJ IV ×6 (00:39→22:00)
[2018-05-05] MEDS: morphine 10 MG INJ IV ×6 (00:39→22:01)
[2018-05-05] MEDS: LINEZOLID 600 MG/D5W (PMX) 300 ML IVPB ×2 (04:30→19:56)
[2018-05-05] MEDS: TRIMETHOPRIM/SULFAMETHOXAZOLE 20 ML in DEXTROSE 5% 500 ML IVPB ×3 (06:11→22:30)
[2018-05-05] MEDS: ONDANSETRON 4 MG INJ IV ×2 (09:16→13:41)
[2018-05-05] MEDS: FOLIC ACID 1 MG TAB PO (09:17)
[2018-05-05] MEDS: LUBIPROSTONE 24 MCG CAP PO ×2 (09:17→21:44)
[2018-05-05] MEDS: SENNA TAB PO ×2 (09:17→21:44)
[2018-05-05] MEDS: CLARITHROMYCIN 500 MG TAB PO ×2 (09:17→21:44)
[2018-05-05] MEDS: BISACODYL (EC) 5 MG TAB PO (09:18)
[2018-05-05] MEDS: FUROSEMIDE 20 MG TAB PO (09:18)
[2018-05-05] MEDS: FAMOTIDINE 20 MG TAB PO (09:18)
[2018-05-05] MEDS: HYDROXYUREA 500 MG CAP PO ×2 (09:26→21:45)
[2018-05-05] MEDS: METHYLNALTREXONE 12 MG/0.6 ML VIAL SC (09:27)
[2018-05-05] MEDS: ENOXAPARIN 30 MG/0.3 ML SYG SC (09:33)
[2018-05-05 11:21] LABS: ADD MAN DIFF? NO
[2018-05-05 11:28] LABS: WHITE BLOOD COUNT 10.9 10^3/ul (4.8-10.8)
[2018-05-05 11:28] LABS: BASOPHIL # 0.1 10^3/ul (0.0-0.1); BASOPHILS % 1.1 % (0.0-2.0); EOSINOPHILS # 0.8 10^3/ul (0.0-0.5); EOSINOPHILS % 7.6 % (0.0-7.0); HEMATOCRIT 28.4 % (37.0-47.0); HEMOGLOBIN 9.3 g/dl (12.0-16.0); LYMPHOCYTES # 4.5 10^3/ul (0.8-2.9); LYMPHOCYTES % 41.1 % (15.0-51.0); MEAN CORPUSCULAR HEMOGLOBIN 28.7 pg (29.0-33.0); MEAN CORPUSCULAR HGB CONC 32.7 g/dl (32.0-37.0); MEAN CORPUSCULAR VOLUME 87.7 fl (82.0-101.0); MEAN PLATELET VOLUME 10.8 fl (7.4-10.4); MONOCYTE # 1.3 10^3/ul (0.3-0.9); NEUTROPHIL # 4.1 10^3/ul (1.6-7.5); NEUTROPHILS % 37.6 % (39.0-77.0); NUCLEATED RED BLOOD CELLS% 0.4 /100WBC (0.0-0.0); PLATELET COUNT 322 10^3/UL (140-415); RED BLOOD COUNT 3.24 10^6/ul (4.20-5.40)
[2018-05-05 11:50] LABS: ANION GAP 15 (5-13); BLOOD UREA NITROGEN 18 mg/dl (7-20); CALCIUM 9.2 mg/dl (8.4-10.2); CARBON DIOXIDE 22 mmol/L (21-31); CHLORIDE 101 mmol/L (97-110); CREATININE 1.13 mg/dl (0.44-1.00); Estimated GFR 57 mL/min (>60); GLUCOSE 118 mg/dl (70-220); POTASSIUM 4.8 mmol/L (3.5-5.1); SODIUM 138 mmol/L (135-144)
[2018-05-05] MEDS: SOD CHLORIDE 0.9% 1,000 ML IV (14:03)
[2018-05-05] MEDS: JADENU 360 MG PO (21:49)
[2018-05-06] MEDS: ZOLPIDEM 5 MG TAB PO (01:07)
[2018-05-06] MEDS: DIPHENHYDRAMINE 50 MG INJ IV ×6 (01:58→22:12)
[2018-05-06] MEDS: morphine 10 MG INJ IV ×6 (01:58→22:13)
[2018-05-06] MEDS: ONDANSETRON 4 MG INJ IV ×3 (01:58→22:12)
[2018-05-06] MEDS: LINEZOLID 600 MG/D5W (PMX) 300 ML IVPB ×2 (04:30→17:45)
[2018-05-06] MEDS: TRIMETHOPRIM/SULFAMETHOXAZOLE 20 ML in DEXTROSE 5% 500 ML IVPB ×3 (06:05→22:16)
[2018-05-06] MEDS: SENNA TAB PO ×2 (09:38→22:14)
[2018-05-06] MEDS: LUBIPROSTONE 24 MCG CAP PO ×2 (09:39→22:12)
[2018-05-06] MEDS: CLARITHROMYCIN 500 MG TAB PO ×2 (09:40→22:12)
[2018-05-06] MEDS: FAMOTIDINE 20 MG TAB PO (09:40)
[2018-05-06] MEDS: FUROSEMIDE 20 MG TAB PO (09:41)
[2018-05-06] MEDS: FOLIC ACID 1 MG TAB PO (09:41)
[2018-05-06] MEDS: BISACODYL (EC) 5 MG TAB PO (09:42)
[2018-05-06] MEDS: METHYLNALTREXONE 12 MG/0.6 ML VIAL SC (09:42)
[2018-05-06] MEDS: HYDROXYUREA 500 MG CAP PO ×2 (09:44→22:16)
[2018-05-06] MEDS: ENOXAPARIN 30 MG/0.3 ML SYG SC (09:45)
[2018-05-06] MEDS: SOD CHLORIDE 0.9% 1,000 ML IV (11:30)
[2018-05-06] MEDS: HAEMPH B POLYSAC CONJ-MENIN/PF 7.5 MCG/0.5 ML VIAL IM* (16:00)
[2018-05-06] MEDS: JADENU 360 MG PO (22:14)
[2018-05-07] MEDS: morphine 10 MG INJ IV ×6 (02:03→21:56)
[2018-05-07] MEDS: DIPHENHYDRAMINE 50 MG INJ IV ×6 (02:03→21:56)
[2018-05-07] MEDS: LINEZOLID 600 MG/D5W (PMX) 300 ML IVPB ×2 (06:14→19:26)
[2018-05-07] MEDS: ONDANSETRON 4 MG INJ IV ×2 (06:15→21:56)
[2018-05-07] MEDS: SOD CHLORIDE 0.9% 1,000 ML IV (07:30)
[2018-05-07] MEDS: TRIMETHOPRIM/SULFAMETHOXAZOLE 20 ML in DEXTROSE 5% 500 ML IVPB ×3 (08:55→21:56)
[2018-05-07] MEDS: SENNA TAB PO ×2 (10:05→21:56)
[2018-05-07] MEDS: LUBIPROSTONE 24 MCG CAP PO ×2 (10:05→21:56)
[2018-05-07] MEDS: FAMOTIDINE 20 MG TAB PO (10:06)
[2018-05-07] MEDS: FOLIC ACID 1 MG TAB PO (10:06)
[2018-05-07] MEDS: CLARITHROMYCIN 500 MG TAB PO ×2 (10:06→21:55)
[2018-05-07] MEDS: METHYLNALTREXONE 12 MG/0.6 ML VIAL SC (10:07)
[2018-05-07] MEDS: FUROSEMIDE 20 MG TAB PO (10:07)
[2018-05-07] MEDS: HYDROXYUREA 500 MG CAP PO ×2 (10:08→21:57)
[2018-05-07] MEDS: ENOXAPARIN 30 MG/0.3 ML SYG SC (10:09)
[2018-05-07 10:25] LABS: ADD MAN DIFF? NO
[2018-05-07 10:30] LABS: BASOPHIL # 0.1 10^3/ul (0.0-0.1); BASOPHILS % 1.3 % (0.0-2.0); EOSINOPHILS # 0.5 10^3/ul (0.0-0.5); EOSINOPHILS % 5.4 % (0.0-7.0); HEMATOCRIT 25.7 % (37.0-47.0); HEMOGLOBIN 8.3 g/dl (12.0-16.0); LYMPHOCYTES # 2.8 10^3/ul (0.8-2.9); MEAN CORPUSCULAR HEMOGLOBIN 28.6 pg (29.0-33.0); MEAN CORPUSCULAR HGB CONC 32.3 g/dl (32.0-37.0); MEAN CORPUSCULAR VOLUME 88.6 fl (82.0-101.0); MEAN PLATELET VOLUME 10.3 fl (7.4-10.4); MONOCYTE # 0.9 10^3/ul (0.3-0.9); MONOCYTES % 10.2 % (0.0-11.0); NEUTROPHIL # 4.4 10^3/ul (1.6-7.5); NEUTROPHILS % 50.9 % (39.0-77.0); NUCLEATED RED BLOOD CELLS% 0.2 /100WBC (0.0-0.0); PLATELET COUNT 278 10^3/UL (140-415); RED CELL DISTRIBUTION WIDTH 16.8 % (11.5-14.5)
[2018-05-07 10:30] LABS: WHITE BLOOD COUNT 8.6 10^3/ul (4.8-10.8)
[2018-05-07 10:45] LABS: ANION GAP 10 (5-13); BLOOD UREA NITROGEN 12 mg/dl (7-20); CALCIUM 9.1 mg/dl (8.4-10.2); CARBON DIOXIDE 25 mmol/L (21-31); CHLORIDE 101 mmol/L (97-110); CREATININE 0.83 mg/dl (0.44-1.00); Estimated GFR > 60 mL/min (>60); GLUCOSE 104 mg/dl (70-220); POTASSIUM 4.6 mmol/L (3.5-5.1); SODIUM 136 mmol/L (135-144)
[2018-05-07] MEDS: JADENU 360 MG PO (21:58)
[2018-05-08] MEDS: DIPHENHYDRAMINE 50 MG INJ IV ×6 (02:03→22:06)
[2018-05-08] MEDS: ONDANSETRON 4 MG INJ IV ×4 (02:03→22:05)
[2018-05-08] MEDS: morphine 10 MG INJ IV ×6 (02:03→22:06)
[2018-05-08] MEDS: SOD CHLORIDE 0.9% 1,000 ML IV ×2 (02:07→03:30)
[2018-05-08] MEDS: LINEZOLID 600 MG/D5W (PMX) 300 ML IVPB ×2 (04:29→17:15)
[2018-05-08] MEDS: TRIMETHOPRIM/SULFAMETHOXAZOLE 20 ML in DEXTROSE 5% 500 ML IVPB ×3 (06:50→22:06)
[2018-05-08] MEDS: FUROSEMIDE 20 MG TAB PO (09:00)
[2018-05-08] MEDS: FAMOTIDINE 20 MG TAB PO (09:55)
[2018-05-08] MEDS: CLARITHROMYCIN 500 MG TAB PO ×2 (09:55→22:04)
[2018-05-08] MEDS: FOLIC ACID 1 MG TAB PO (09:55)
[2018-05-08] MEDS: SENNA TAB PO ×2 (09:55→22:01)
[2018-05-08] MEDS: ENOXAPARIN 30 MG/0.3 ML SYG SC (09:58)
[2018-05-08] MEDS: HYDROXYUREA 500 MG CAP PO ×2 (09:59→22:04)
[2018-05-08] MEDS: METHYLNALTREXONE 12 MG/0.6 ML VIAL SC (10:08)
[2018-05-08] MEDS: LUBIPROSTONE 24 MCG CAP PO ×2 (12:28→22:04)
[2018-05-08] MEDS: JADENU 360 MG PO (22:04)
[2018-05-09] MEDS: morphine 10 MG INJ IV ×6 (02:09→22:19)
[2018-05-09] MEDS: DIPHENHYDRAMINE 50 MG INJ IV ×6 (02:09→22:19)
[2018-05-09] MEDS: SOD CHLORIDE 0.9% 1,000 ML IV ×2 (05:04→19:30)
[2018-05-09] MEDS: LINEZOLID 600 MG/D5W (PMX) 300 ML IVPB ×2 (05:04→18:24)
[2018-05-09] MEDS: TRIMETHOPRIM/SULFAMETHOXAZOLE 20 ML in DEXTROSE 5% 500 ML IVPB ×3 (06:06→22:17)
[2018-05-09] MEDS: FUROSEMIDE 20 MG TAB PO (09:00)
[2018-05-09] MEDS: ENOXAPARIN 30 MG/0.3 ML SYG SC (10:19)
[2018-05-09] MEDS: METHYLNALTREXONE 12 MG/0.6 ML VIAL SC (10:19)
[2018-05-09] MEDS: HYDROXYUREA 500 MG CAP PO ×2 (10:20→22:24)
[2018-05-09] MEDS: FAMOTIDINE 20 MG TAB PO (10:20)
[2018-05-09] MEDS: CLARITHROMYCIN 500 MG TAB PO ×2 (10:20→22:17)
[2018-05-09] MEDS: LUBIPROSTONE 24 MCG CAP PO ×2 (10:20→22:17)
[2018-05-09] MEDS: SENNA TAB PO ×2 (10:21→22:17)
[2018-05-09] MEDS: FOLIC ACID 1 MG TAB PO (10:21)
[2018-05-09] MEDS: ONDANSETRON 4 MG INJ IV (14:19)
[2018-05-09] MEDS: JADENU 360 MG PO (22:17)
[2018-05-10] MEDS: DIPHENHYDRAMINE 50 MG INJ IV ×5 (02:26→20:10)
[2018-05-10] MEDS: morphine 10 MG INJ IV ×5 (02:29→20:10)
[2018-05-10] MEDS: LINEZOLID 600 MG/D5W (PMX) 300 ML IVPB ×2 (05:18→19:50)
[2018-05-10] MEDS: TRIMETHOPRIM/SULFAMETHOXAZOLE 20 ML in DEXTROSE 5% 500 ML IVPB ×3 (06:44→22:00)
[2018-05-10] MEDS: FOLIC ACID 1 MG TAB PO (12:08)
[2018-05-10] MEDS: FAMOTIDINE 20 MG TAB PO (12:09)
[2018-05-10] MEDS: SENNA TAB PO ×2 (12:09→20:06)
[2018-05-10] MEDS: LUBIPROSTONE 24 MCG CAP PO ×2 (12:09→20:06)
[2018-05-10] MEDS: CLARITHROMYCIN 500 MG TAB PO ×2 (12:09→20:07)
[2018-05-10] MEDS: FUROSEMIDE 20 MG TAB PO (12:09)
[2018-05-10] MEDS: HYDROXYUREA 500 MG CAP PO ×2 (12:10→20:17)
[2018-05-10] MEDS: METHYLNALTREXONE 12 MG/0.6 ML VIAL SC (12:11)
[2018-05-10] MEDS: ENOXAPARIN 30 MG/0.3 ML SYG SC (12:11)
[2018-05-10 13:45] LABS: CREATININE 0.85 mg/dl (0.44-1.00)
[2018-05-10 13:45] LABS: BLOOD UREA NITROGEN 13 mg/dl (7-20)
[2018-05-10] MEDS: SOD CHLORIDE 0.9% 1,000 ML IV (15:43)
[2018-05-10] MEDS: ONDANSETRON 4 MG INJ IV (16:11)
[2018-05-10] MEDS: [UNRECOGNIZED DRUG - OTHER] IM (17:00)
[2018-05-10 17:03] LABS: ADD MAN DIFF? NO
[2018-05-10 17:05] LABS: BASOPHIL # 0.1 10^3/ul (0.0-0.1); BASOPHILS % 1.2 % (0.0-2.0); EOSINOPHILS # 0.5 10^3/ul (0.0-0.5); EOSINOPHILS % 4.5 % (0.0-7.0); HEMATOCRIT 22.5 % (37.0-47.0); HEMOGLOBIN 7.3 g/dl (12.0-16.0); LYMPHOCYTES # 3.9 10^3/ul (0.8-2.9); LYMPHOCYTES % 39.2 % (15.0-51.0); MEAN CORPUSCULAR HEMOGLOBIN 28.3 pg (29.0-33.0); MEAN CORPUSCULAR HGB CONC 32.4 g/dl (32.0-37.0); MEAN CORPUSCULAR VOLUME 87.2 fl (82.0-101.0); MEAN PLATELET VOLUME 10.2 fl (7.4-10.4); MONOCYTE # 0.8 10^3/ul (0.3-0.9); MONOCYTES % 8.1 % (0.0-11.0); NEUTROPHIL # 4.7 10^3/ul (1.6-7.5); NEUTROPHILS % 46.7 % (39.0-77.0); NUCLEATED RED BLOOD CELLS # 0.1 10^3/ul (0.0-0.0); NUCLEATED RED BLOOD CELLS% 0.5 /100WBC (0.0-0.0); PLATELET COUNT 288 10^3/UL (140-415); RED BLOOD COUNT 2.58 10^6/ul (4.20-5.40); RED CELL DISTRIBUTION WIDTH 15.9 % (11.5-14.5)
[2018-05-10 17:05] LABS: WHITE BLOOD COUNT 10.1 10^3/ul (4.8-10.8)
[2018-05-10 17:22] LABS: ANION GAP 10 (5-13); BLOOD UREA NITROGEN 13 mg/dl (7-20); CALCIUM 9.2 mg/dl (8.4-10.2); CARBON DIOXIDE 25 mmol/L (21-31); CHLORIDE 99 mmol/L (97-110); CREATININE 0.87 mg/dl (0.44-1.00); Estimated GFR > 60 mL/min (>60); GLUCOSE 113 mg/dl (70-220); POTASSIUM 4.6 mmol/L (3.5-5.1); SODIUM 134 mmol/L (135-144)
[2018-05-10] MEDS: JADENU 360 MG PO (22:00)
[2018-05-10] MEDS: ACETAMINOPHEN 500 MG TAB PO (23:50)
[2018-05-11] MEDS: DIPHENHYDRAMINE 50 MG INJ IV ×6 (00:13→20:40)
[2018-05-11] MEDS: morphine 10 MG INJ IV ×6 (00:13→20:40)
[2018-05-11] MEDS: ACETAMINOPHEN 500 MG TAB PO (00:31)
[2018-05-11] MEDS: LINEZOLID 600 MG/D5W (PMX) 300 ML IVPB ×2 (04:27→16:28)
[2018-05-11] MEDS: TRIMETHOPRIM/SULFAMETHOXAZOLE 20 ML in DEXTROSE 5% 500 ML IVPB ×3 (06:42→23:24)
[2018-05-11 07:02] LABS: PRETRANSFUSION BILIRUBIN 0.4 mg/dl
[2018-05-11 07:02] LABS: POST-TRANSFUSION BILIRUBIN 0.3 mg/dl
[2018-05-11] MEDS: FOLIC ACID 1 MG TAB PO (08:14)
[2018-05-11] MEDS: CLARITHROMYCIN 500 MG TAB PO ×2 (08:14→20:51)
[2018-05-11] MEDS: FUROSEMIDE 20 MG TAB PO (08:15)
[2018-05-11] MEDS: FAMOTIDINE 20 MG TAB PO (08:15)
[2018-05-11] MEDS: SENNA TAB PO ×3 (08:16→22:30)
[2018-05-11] MEDS: ENOXAPARIN 30 MG/0.3 ML SYG SC (08:27)
[2018-05-11] MEDS: HYDROXYUREA 500 MG CAP PO ×2 (08:28→21:05)
[2018-05-11] MEDS: LUBIPROSTONE 24 MCG CAP PO ×2 (08:28→20:39)
[2018-05-11] MEDS: METHYLNALTREXONE 12 MG/0.6 ML VIAL SC (08:28)
[2018-05-11 14:10] LABS: ADD UMIC NO; UR ASCORBIC ACID NEGATIVE (NEGATIVE); UR BILIRUBIN (Dip) NEGATIVE (NEGATIVE); UR BLOOD (Dip) NEGATIVE (NEGATIVE); UR CLARITY CLEAR (CLEAR); UR COLOR YELLOW (YELLOW); UR GLUCOSE (Dip) NEGATIVE (NEGATIVE); UR KETONES (Dip) NEGATIVE (NEGATIVE); UR LEUKOCYTE ESTERASE (Dip) NEGATIVE Leu/ul (NEGATIVE); UR NITRITE (Dip) NEGATIVE (NEGATIVE); UR SPECIFIC GRAVITY (Dip) 1.009 (1.003-1.030); UR TOTAL PROTEIN (Dip) NEGATIVE (NEGATIVE); UR UROBILINOGEN (Dip) NEGATIVE (NEGATIVE)
[2018-05-11 14:23] LABS: ADD MAN DIFF? NO
[2018-05-11 14:26] LABS: WHITE BLOOD COUNT 10.8 10^3/ul (4.8-10.8)
[2018-05-11 14:26] LABS: BASOPHIL # 0.1 10^3/ul (0.0-0.1); BASOPHILS % 1.2 % (0.0-2.0); EOSINOPHILS # 0.4 10^3/ul (0.0-0.5); EOSINOPHILS % 3.5 % (0.0-7.0); HEMATOCRIT 23.5 % (37.0-47.0); HEMOGLOBIN 7.8 g/dl (12.0-16.0); LYMPHOCYTES # 2.8 10^3/ul (0.8-2.9); LYMPHOCYTES % 25.9 % (15.0-51.0); MEAN CORPUSCULAR HEMOGLOBIN 29.1 pg (29.0-33.0); MEAN CORPUSCULAR HGB CONC 33.2 g/dl (32.0-37.0); MEAN CORPUSCULAR VOLUME 87.7 fl (82.0-101.0); MEAN PLATELET VOLUME 10.6 fl (7.4-10.4); MONOCYTE # 0.7 10^3/ul (0.3-0.9); MONOCYTES % 6.8 % (0.0-11.0); NEUTROPHIL # 6.7 10^3/ul (1.6-7.5); NEUTROPHILS % 62.1 % (39.0-77.0); NUCLEATED RED BLOOD CELLS # 0.1 10^3/ul (0.0-0.0); NUCLEATED RED BLOOD CELLS% 0.7 /100WBC (0.0-0.0); PLATELET COUNT 262 10^3/UL (140-415); RED BLOOD COUNT 2.68 10^6/ul (4.20-5.40); RED CELL DISTRIBUTION WIDTH 15.6 % (11.5-14.5)
[2018-05-11 14:52] LABS: ANION GAP 12 (5-13); BLOOD UREA NITROGEN 13 mg/dl (7-20); CALCIUM 9.2 mg/dl (8.4-10.2); CARBON DIOXIDE 24 mmol/L (21-31); CHLORIDE 101 mmol/L (97-110); Estimated GFR > 60 mL/min (>60); GLUCOSE 122 mg/dl (70-220); POTASSIUM 4.4 mmol/L (3.5-5.1); SODIUM 137 mmol/L (135-144)
[2018-05-11] MEDS: JADENU 360 MG PO (20:39)
[2018-05-11] MEDS: ZYVOX 600 MG TAB PO (21:00)
[2018-05-12] MEDS: morphine 10 MG INJ IV ×6 (00:33→21:07)
[2018-05-12] MEDS: DIPHENHYDRAMINE 50 MG INJ IV ×6 (00:33→21:07)
[2018-05-12] MEDS: ACETAMINOPHEN 325 MG TAB PO (04:22)
[2018-05-12 04:46] LABS: IMMEDIATE SPIN CROSSMATCH 1 2
[2018-05-12] MEDS: LUBIPROSTONE 24 MCG CAP PO ×2 (09:03→21:09)
[2018-05-12] MEDS: FAMOTIDINE 20 MG TAB PO (09:03)
[2018-05-12] MEDS: ZYVOX 600 MG TAB PO ×2 (09:03→21:07)
[2018-05-12] MEDS: SENNA TAB PO ×2 (09:03→21:07)
[2018-05-12] MEDS: FUROSEMIDE 20 MG TAB PO (09:04)
[2018-05-12] MEDS: METHYLNALTREXONE 12 MG/0.6 ML VIAL SC (09:06)
[2018-05-12] MEDS: CLARITHROMYCIN 500 MG TAB PO ×2 (09:09→21:59)
[2018-05-12] MEDS: FOLIC ACID 1 MG TAB PO (09:09)
[2018-05-12] MEDS: HYDROXYUREA 500 MG CAP PO ×2 (09:11→21:58)
[2018-05-12] MEDS: ENOXAPARIN 30 MG/0.3 ML SYG SC (09:12)
[2018-05-12] MEDS: TRIMETHOPRIM/SULFAMETHOXAZOLE 20 ML in DEXTROSE 5% 500 ML IVPB ×3 (10:54→22:00)
[2018-05-12 14:08] LABS: HEMATOCRIT 28.2 % (37.0-47.0); HEMOGLOBIN 9.4 g/dl (12.0-16.0)
[2018-05-12] MEDS: ONDANSETRON 4 MG INJ IV (16:54)
[2018-05-12] MEDS: JADENU 360 MG PO (21:08)
[2018-05-12] MEDS: HEPARIN (100 UNITS/ML) 5 ML SYG CATHETER (21:58)
== END 2018-05-12 22:25 | disposition home or self-care (01) | DRG 871 ==
LOC: 2NE 04-27 19:51 → E/R 05:42 → 2NE 04-26 17:28 → 6WM 07:10
PROC: 30243N1 Transfusion of Nonautologous Red Blood Cells into Central Vein, Percutaneous Approach (ICD-10-PCS; principal; 2018-04-27)
DX: A41.59 Other Gram-negative sepsis (principal); D57.00 Hb-SS disease with crisis, unspecified; E87.5 Hyperkalemia; Z86.711 Personal history of pulmonary embolism; Z22.338 Carrier of other streptococcus
CPT/HCPCS: 36415; 36430; 71045; 71046; 78306; 80048; 80053; 81003; 81025; 82565; 83605; 84484; 84520; 85014; 85018; 85025; 85610; 85730; 86078; 86644; 86703; 86850; 86900; 86901; 86920; 86945; 87040; 87081; 87086; 87400; 87536; 90670; 93005; 96374; 96375; 99291-25; A9503

== ENCOUNTER 2018-05-22 03:04 | Inpatient (IN) | payer OTHER ==
[2018-05-22] MEDS: SODIUM CHLORIDE 0.9% 1L BAG IV* (03:50)
[2018-05-22] MEDS: CEFEPIME 1GM/50 ML (PMX) 50 ML IVPB (03:50)
[2018-05-22 03:55] LABS: ADD MAN DIFF? NO
[2018-05-22 04:08] LABS: WHITE BLOOD COUNT 15.7 10^3/ul (4.8-10.8)
[2018-05-22 04:08] LABS: ABNORMAL IP MESSAGE 1; BASOPHIL # 0.1 10^3/ul (0.0-0.1); BASOPHILS % 0.6 % (0.0-2.0); EOSINOPHILS # 0.2 10^3/ul (0.0-0.5); HEMATOCRIT 26.7 % (37.0-47.0); HEMOGLOBIN 8.7 g/dl (12.0-16.0); LYMPHOCYTES # 1.5 10^3/ul (0.8-2.9); LYMPHOCYTES % 9.2 % (15.0-51.0); MEAN CORPUSCULAR HEMOGLOBIN 29.7 pg (29.0-33.0); MEAN CORPUSCULAR HGB CONC 32.6 g/dl (32.0-37.0); MEAN CORPUSCULAR VOLUME 91.1 fl (82.0-101.0); MEAN PLATELET VOLUME 10.8 fl (7.4-10.4); MONOCYTE # 1.7 10^3/ul (0.3-0.9); MONOCYTES % 10.7 % (0.0-11.0); NEUTROPHIL # 12.2 10^3/ul (1.6-7.5); NEUTROPHILS % 77.7 % (39.0-77.0); NUCLEATED RED BLOOD CELLS # 0.2 10^3/ul (0.0-0.0); NUCLEATED RED BLOOD CELLS% 1.3 /100WBC (0.0-0.0); PLATELET COUNT 333 10^3/UL (140-415); RED BLOOD COUNT 2.93 10^6/ul (4.20-5.40); RED CELL DISTRIBUTION WIDTH 17.2 % (11.5-14.5)
[2018-05-22 04:14] LABS: ALANINE AMINOTRANSFERASE 62 IU/L (13-69); ALBUMIN 4.2 g/dl (3.3-4.9); ALBUMIN/GLOBULIN RATIO 1.05; ALKALINE PHOSPHATASE 171 IU/L (42-121); ANION GAP 11 (5-13); ASPARTATE AMINO TRANSFERASE 68 IU/L (15-46); BILIRUBIN,INDIRECT 1.3 mg/dl (0-1.1); BILIRUBIN,TOTAL 1.3 mg/dl (0.2-1.3); BLOOD UREA NITROGEN 20 mg/dl (7-20); CALCIUM 8.9 mg/dl (8.4-10.2); CARBON DIOXIDE 24 mmol/L (21-31); CHLORIDE 105 mmol/L (97-110); CREATININE 0.95 mg/dl (0.44-1.00); Estimated GFR > 60 mL/min (>60); GLUCOSE 104 mg/dl (70-220); POTASSIUM 4.8 mmol/L (3.5-5.1); SODIUM 140 mmol/L (135-144); TOTAL PROTEIN 8.2 g/dl (6.1-8.1)
[2018-05-22 04:15] LABS: LACTIC ACID 1.9 mmol/L (0.5-2.0)
[2018-05-22 04:18] LABS: INR 0.99; PROTIME 13.2 Sec (11.9-14.9)
[2018-05-22 04:19] LABS: PARTIAL THROMBOPLASTIN TIME 29.6 Sec (23.0-35.0)
[2018-05-22] MEDS: ONDANSETRON 4 MG INJ IV ×3 (04:19→17:58)
[2018-05-22] MEDS: morphine 10 MG INJ IV (04:20)
[2018-05-22 04:22] LABS: POSITIVE DIFF @See below
[2018-05-22 04:26] LABS: TROPONIN-I < 0.012 ng/ml (0.000-0.120)
[2018-05-22] MEDS: VANCOMYCIN 1 GM (PMX) 250 ML IVPB (05:12)
[2018-05-22] MEDS: ACETAMINOPHEN 325 MG TAB PO ×4 (05:29→21:30)
[2018-05-22] MEDS ORDERED: ONDANSETRON 4 MG INJ IV (05:30)
[2018-05-22 05:50] LABS: LACTIC ACID 1.5 mmol/L (0.5-2.0)
[2018-05-22 07:55] LABS: ADD UMIC NO; UR ASCORBIC ACID NEGATIVE (NEGATIVE); UR BILIRUBIN (Dip) NEGATIVE (NEGATIVE); UR BLOOD (Dip) NEGATIVE (NEGATIVE); UR CLARITY CLEAR (CLEAR); UR COLOR YELLOW (YELLOW); UR GLUCOSE (Dip) NEGATIVE (NEGATIVE); UR KETONES (Dip) NEGATIVE (NEGATIVE); UR LEUKOCYTE ESTERASE (Dip) NEGATIVE Leu/ul (NEGATIVE); UR NITRITE (Dip) NEGATIVE (NEGATIVE); UR SPECIFIC GRAVITY (Dip) 1.008 (1.003-1.030); UR TOTAL PROTEIN (Dip) NEGATIVE (NEGATIVE); UR UROBILINOGEN (Dip) NEGATIVE (NEGATIVE)
[2018-05-22] MEDS ORDERED: HYDROCODONE/APAP (5/325) TAB PO (08:30)
[2018-05-22] MEDS ORDERED: ZOLPIDEM 5 MG TAB PO (08:30)
[2018-05-22] MEDS: CLARITHROMYCIN 500 MG TAB PO ×3 (09:00→21:24)
[2018-05-22 09:17] LABS: LACTIC ACID 1.2 mmol/L (0.5-2.0)
[2018-05-22] MEDS: morphine 4 MG/ML VIAL IV ×4 (09:28→21:50)
[2018-05-22] MEDS: SOD CHLORIDE 0.45% 1,000 ML IV (09:29)
[2018-05-22] MEDS: DIPHENHYDRAMINE 50 MG INJ IV ×4 (09:29→21:50)
[2018-05-22] MEDS: LUBIPROSTONE 24 MCG CAP PO ×2 (10:25→21:24)
[2018-05-22] MEDS: DOXYCYCLINE 100 MG TAB PO ×2 (10:25→21:29)
[2018-05-22] MEDS: FOLIC ACID 1 MG TAB PO (10:25)
[2018-05-22] MEDS: TRIMETHOPRIM/SULFAMETHOX (DS) TAB PO ×3 (10:26→21:30)
[2018-05-22] MEDS: HYDROXYUREA 500 MG CAP PO ×2 (10:40→21:27)
[2018-05-22] MEDS: LINEZOLID 600 MG/D5W (PMX) 300 ML IVPB (22:54)
[2018-05-23] MEDS: SOD CHLORIDE 0.45% 1,000 ML IV ×2 (00:26→11:10)
[2018-05-23] MEDS: IBUPROFEN 200 MG TAB PO (00:26)
[2018-05-23] MEDS: MEROPENEM 1 GM/50ML(PMX) 50 ML IVPB ×4 (00:26→21:39)
[2018-05-23] MEDS: ONDANSETRON 4 MG INJ IV ×3 (01:56→17:52)
[2018-05-23] MEDS: DIPHENHYDRAMINE 50 MG INJ IV ×6 (01:56→21:53)
[2018-05-23] MEDS: morphine 4 MG/ML VIAL IV ×6 (01:56→21:54)
[2018-05-23] MEDS: SOD CHLORIDE 0.9% 250 ML IV* (03:55)
[2018-05-23] MEDS: TRIMETHOPRIM/SULFAMETHOX (DS) TAB PO ×3 (05:59→21:41)
[2018-05-23] MEDS: FOLIC ACID 1 MG TAB PO (08:43)
[2018-05-23] MEDS: LUBIPROSTONE 24 MCG CAP PO ×2 (08:44→21:39)
[2018-05-23] MEDS: DOXYCYCLINE 100 MG TAB PO ×2 (08:44→21:39)
[2018-05-23] MEDS: CLARITHROMYCIN 500 MG TAB PO ×2 (08:44→21:40)
[2018-05-23] MEDS: LINEZOLID 600 MG/D5W (PMX) 300 ML IVPB ×2 (08:47→21:43)
[2018-05-23 08:59] LABS: ADD MAN DIFF? NO
[2018-05-23 09:05] LABS: BASOPHIL # 0.1 10^3/ul (0.0-0.1); BASOPHILS % 0.9 % (0.0-2.0); EOSINOPHILS # 0.3 10^3/ul (0.0-0.5); EOSINOPHILS % 3.3 % (0.0-7.0); HEMATOCRIT 23.5 % (37.0-47.0); HEMOGLOBIN 7.6 g/dl (12.0-16.0); LYMPHOCYTES # 2.3 10^3/ul (0.8-2.9); LYMPHOCYTES % 22.7 % (15.0-51.0); MEAN CORPUSCULAR HEMOGLOBIN 29.3 pg (29.0-33.0); MEAN CORPUSCULAR HGB CONC 32.3 g/dl (32.0-37.0); MEAN CORPUSCULAR VOLUME 90.7 fl (82.0-101.0); MEAN PLATELET VOLUME 11.3 fl (7.4-10.4); MONOCYTE # 0.8 10^3/ul (0.3-0.9); MONOCYTES % 7.9 % (0.0-11.0); NEUTROPHIL # 6.3 10^3/ul (1.6-7.5); NEUTROPHILS % 63.7 % (39.0-77.0); NUCLEATED RED BLOOD CELLS # 0.1 10^3/ul (0.0-0.0); NUCLEATED RED BLOOD CELLS% 1.4 /100WBC (0.0-0.0); PLATELET COUNT 206 10^3/UL (140-415); RED BLOOD COUNT 2.59 10^6/ul (4.20-5.40); RED CELL DISTRIBUTION WIDTH 17.7 % (11.5-14.5)
[2018-05-23 09:39] LABS: ALANINE AMINOTRANSFERASE 150 IU/L (13-69); ALBUMIN 3.5 g/dl (3.3-4.9); ALBUMIN/GLOBULIN RATIO 1.06; ALKALINE PHOSPHATASE 103 IU/L (42-121); ANION GAP 10 (5-13); ASPARTATE AMINO TRANSFERASE 149 IU/L (15-46); BILIRUBIN,INDIRECT 0.9 mg/dl (0-1.1); BILIRUBIN,TOTAL 0.9 mg/dl (0.2-1.3); BLOOD UREA NITROGEN 12 mg/dl (7-20); CALCIUM 8.2 mg/dl (8.4-10.2); CARBON DIOXIDE 26 mmol/L (21-31); CHLORIDE 103 mmol/L (97-110); CREATININE 0.79 mg/dl (0.44-1.00); Estimated GFR > 60 mL/min (>60); GLUCOSE 89 mg/dl (70-220); SODIUM 139 mmol/L (135-144); TOTAL PROTEIN 6.8 g/dl (6.1-8.1)
[2018-05-23 09:57] LABS: ANISOCYTOSIS 3+ (0-0); BAND NEUTROPHILS #M 0.2 10^3/ul (0.0-0.6); BAND NEUTROPHILS % (M) 2 % (0-4); EOSINOPHILS % (M) 3 % (0-7); ERYTHROBLAST% (NRBC) (M) 2 % (0-0); GIANT THROMBO% (M) 4 % (0-0); HYPOCHROMASIA 1+ (0-0); LYMPHOCYTES #M 2.5 10^3/ul (0.8-2.9); LYMPHOCYTES % (M) 25 % (15-51); MICROCYTOSIS 1+ (0-0); MONOCYTE #M 0.5 10^3/ul (0.3-0.9); MONOCYTES % (M) 5 % (0-11); PLATELET ESTIMATE NORMAL; POIKILOCYTOSIS 1+ (0-0); POLYCHROMASIA 3+ (0-0); REACTIVE LYMPHOCYTES #M 0.3 10^3/ul (0.0-0.0); REACTIVE LYMPHOCYTES% (M) 3 % (0-0); SEG NEUT #M 6.2 10^3/ul (1.6-7.5); SEGMENTED NEUTROPHILS (M) % 62 % (39-77); SICKLE CELL 1+ (0-0); SMUDGE%M 5 % (0-0)
[2018-05-23] MEDS: HYDROXYUREA 500 MG CAP PO ×2 (10:02→21:49)
[2018-05-24] MEDS: DIPHENHYDRAMINE 50 MG INJ IV ×6 (02:01→21:43)
[2018-05-24] MEDS: morphine 4 MG/ML VIAL IV ×6 (02:02→21:45)
[2018-05-24] MEDS: ONDANSETRON 4 MG INJ IV ×3 (02:02→18:04)
[2018-05-24] MEDS: ACETAMINOPHEN 325 MG TAB PO (02:14)
[2018-05-24 03:38] LABS: IMMEDIATE SPIN CROSSMATCH 1 1
[2018-05-24] MEDS: TRIMETHOPRIM/SULFAMETHOX (DS) TAB PO ×3 (06:13→21:43)
[2018-05-24] MEDS: MEROPENEM 1 GM/50ML(PMX) 50 ML IVPB ×3 (08:15→21:44)
[2018-05-24] MEDS: FOLIC ACID 1 MG TAB PO (10:09)
[2018-05-24] MEDS: LUBIPROSTONE 24 MCG CAP PO ×2 (10:11→20:21)
[2018-05-24] MEDS: DOXYCYCLINE 100 MG TAB PO ×2 (10:11→20:21)
[2018-05-24] MEDS: HYDROXYUREA 500 MG CAP PO ×2 (10:11→20:36)
[2018-05-24] MEDS: CLARITHROMYCIN 500 MG TAB PO ×2 (10:12→20:21)
[2018-05-24] MEDS: LINEZOLID 600 MG/D5W (PMX) 300 ML IVPB ×2 (10:13→20:21)
[2018-05-24 16:25] LABS: ADD MAN DIFF? NO
[2018-05-24 16:27] LABS: BASOPHIL # 0.1 10^3/ul (0.0-0.1); BASOPHILS % 0.8 % (0.0-2.0); EOSINOPHILS # 0.7 10^3/ul (0.0-0.5); EOSINOPHILS % 5.7 % (0.0-7.0); HEMATOCRIT 25.6 % (37.0-47.0); HEMOGLOBIN 8.5 g/dl (12.0-16.0); LYMPHOCYTES % 32.9 % (15.0-51.0); MEAN CORPUSCULAR HEMOGLOBIN 29.4 pg (29.0-33.0); MEAN CORPUSCULAR HGB CONC 33.2 g/dl (32.0-37.0); MEAN CORPUSCULAR VOLUME 88.6 fl (82.0-101.0); MEAN PLATELET VOLUME 10.9 fl (7.4-10.4); MONOCYTE # 1.4 10^3/ul (0.3-0.9); MONOCYTES % 11.4 % (0.0-11.0); NEUTROPHIL # 5.9 10^3/ul (1.6-7.5); NEUTROPHILS % 48.5 % (39.0-77.0); NUCLEATED RED BLOOD CELLS # 0.2 10^3/ul (0.0-0.0); NUCLEATED RED BLOOD CELLS% 1.5 /100WBC (0.0-0.0); PLATELET COUNT 195 10^3/UL (140-415); RED BLOOD COUNT 2.89 10^6/ul (4.20-5.40); RED CELL DISTRIBUTION WIDTH 16.9 % (11.5-14.5)
[2018-05-24 16:27] LABS: WHITE BLOOD COUNT 12.2 10^3/ul (4.8-10.8)
[2018-05-24 16:44] LABS: ANION GAP 9 (5-13); BLOOD UREA NITROGEN 11 mg/dl (7-20); CALCIUM 8.6 mg/dl (8.4-10.2); CARBON DIOXIDE 27 mmol/L (21-31); CHLORIDE 102 mmol/L (97-110); CREATININE 0.79 mg/dl (0.44-1.00); Estimated GFR > 60 mL/min (>60); GLUCOSE 88 mg/dl (70-220); POTASSIUM 4.5 mmol/L (3.5-5.1); SODIUM 138 mmol/L (135-144)
[2018-05-25] MEDS: morphine 4 MG/ML VIAL IV ×6 (01:45→21:43)
[2018-05-25] MEDS: DIPHENHYDRAMINE 50 MG INJ IV ×6 (01:45→21:43)
[2018-05-25] MEDS: MEROPENEM 1 GM/50ML(PMX) 50 ML IVPB ×3 (05:41→21:42)
[2018-05-25] MEDS: TRIMETHOPRIM/SULFAMETHOX (DS) TAB PO ×3 (05:42→21:42)
[2018-05-25 06:08] LABS: ADD MAN DIFF? NO
[2018-05-25 06:21] LABS: BASOPHIL # 0.1 10^3/ul (0.0-0.1); BASOPHILS % 0.9 % (0.0-2.0); EOSINOPHILS # 0.8 10^3/ul (0.0-0.5); EOSINOPHILS % 7.2 % (0.0-7.0); HEMATOCRIT 25.2 % (37.0-47.0); HEMOGLOBIN 8.5 g/dl (12.0-16.0); LYMPHOCYTES # 4.3 10^3/ul (0.8-2.9); LYMPHOCYTES % 40.4 % (15.0-51.0); MEAN CORPUSCULAR HEMOGLOBIN 29.7 pg (29.0-33.0); MEAN CORPUSCULAR HGB CONC 33.7 g/dl (32.0-37.0); MEAN CORPUSCULAR VOLUME 88.1 fl (82.0-101.0); MEAN PLATELET VOLUME 10.7 fl (7.4-10.4); MONOCYTE # 1.2 10^3/ul (0.3-0.9); MONOCYTES % 11.4 % (0.0-11.0); NEUTROPHIL # 4.2 10^3/ul (1.6-7.5); NEUTROPHILS % 39.3 % (39.0-77.0); NUCLEATED RED BLOOD CELLS # 0.3 10^3/ul (0.0-0.0); NUCLEATED RED BLOOD CELLS% 2.8 /100WBC (0.0-0.0); PLATELET COUNT 204 10^3/UL (140-415); RED BLOOD COUNT 2.86 10^6/ul (4.20-5.40); RED CELL DISTRIBUTION WIDTH 16.9 % (11.5-14.5)
[2018-05-25 06:21] LABS: WHITE BLOOD COUNT 10.7 10^3/ul (4.8-10.8)
[2018-05-25 06:45] LABS: ANION GAP 9 (5-13); BLOOD UREA NITROGEN 10 mg/dl (7-20); CALCIUM 8.7 mg/dl (8.4-10.2); CARBON DIOXIDE 25 mmol/L (21-31); CHLORIDE 105 mmol/L (97-110); CREATININE 0.77 mg/dl (0.44-1.00); Estimated GFR > 60 mL/min (>60); GLUCOSE 129 mg/dl (70-220); POTASSIUM 4.6 mmol/L (3.5-5.1); SODIUM 139 mmol/L (135-144)
[2018-05-25] MEDS: BISACODYL (EC) 5 MG TAB PO (07:28)
[2018-05-25] MEDS: POLYETHYLENE GLYCOL 17 GM PACKET PO (09:46)
[2018-05-25] MEDS: LINEZOLID 600 MG/D5W (PMX) 300 ML IVPB ×2 (09:47→22:36)
[2018-05-25] MEDS: FOLIC ACID 1 MG TAB PO (09:47)
[2018-05-25] MEDS: DOXYCYCLINE 100 MG TAB PO ×2 (09:47→21:42)
[2018-05-25] MEDS: CLARITHROMYCIN 500 MG TAB PO ×2 (09:47→22:56)
[2018-05-25] MEDS: LUBIPROSTONE 24 MCG CAP PO ×2 (09:47→23:18)
[2018-05-25] MEDS: HYDROXYUREA 500 MG CAP PO ×2 (10:10→22:55)
[2018-05-25] MEDS ORDERED: BENZOCAINE 10% 7 GM GEL MM (22:30)
[2018-05-26] MEDS: ONDANSETRON 4 MG INJ IV ×3 (02:08→18:17)
[2018-05-26] MEDS: DIPHENHYDRAMINE 50 MG INJ IV ×6 (02:13→22:11)
[2018-05-26] MEDS: morphine 4 MG/ML VIAL IV ×6 (02:15→22:11)
[2018-05-26] MEDS: MEROPENEM 1 GM/50ML(PMX) 50 ML IVPB ×3 (06:06→22:11)
[2018-05-26] MEDS: TRIMETHOPRIM/SULFAMETHOX (DS) TAB PO ×3 (06:06→22:11)
[2018-05-26 08:22] LABS: ADD MAN DIFF? NO
[2018-05-26 08:28] LABS: BASOPHIL # 0.1 10^3/ul (0.0-0.1); EOSINOPHILS # 0.6 10^3/ul (0.0-0.5); EOSINOPHILS % 7.3 % (0.0-7.0); HEMOGLOBIN 8.1 g/dl (12.0-16.0); LYMPHOCYTES # 3.1 10^3/ul (0.8-2.9); LYMPHOCYTES % 35.7 % (15.0-51.0); MEAN CORPUSCULAR HEMOGLOBIN 28.7 pg (29.0-33.0); MEAN CORPUSCULAR HGB CONC 32.4 g/dl (32.0-37.0); MEAN CORPUSCULAR VOLUME 88.7 fl (82.0-101.0); MEAN PLATELET VOLUME 10.6 fl (7.4-10.4); MONOCYTE # 1.1 10^3/ul (0.3-0.9); MONOCYTES % 12.8 % (0.0-11.0); NEUTROPHIL # 3.7 10^3/ul (1.6-7.5); NEUTROPHILS % 42.7 % (39.0-77.0); NUCLEATED RED BLOOD CELLS # 0.3 10^3/ul (0.0-0.0); NUCLEATED RED BLOOD CELLS% 3.1 /100WBC (0.0-0.0); PLATELET COUNT 270 10^3/UL (140-415); RED BLOOD COUNT 2.82 10^6/ul (4.20-5.40); RED CELL DISTRIBUTION WIDTH 17.1 % (11.5-14.5)
[2018-05-26 08:28] LABS: WHITE BLOOD COUNT 8.6 10^3/ul (4.8-10.8)
[2018-05-26 08:50] LABS: ANION GAP 6 (5-13); BLOOD UREA NITROGEN 10 mg/dl (7-20); CARBON DIOXIDE 29 mmol/L (21-31); CHLORIDE 104 mmol/L (97-110); CREATININE 0.67 mg/dl (0.44-1.00); Estimated GFR > 60 mL/min (>60); GLUCOSE 87 mg/dl (70-220); POTASSIUM 4.9 mmol/L (3.5-5.1); SODIUM 139 mmol/L (135-144)
[2018-05-26 09:21] LABS: ALPHA FETOPROTEIN 1.01 IU/L (0.00-7.21)
[2018-05-26] MEDS: LINEZOLID 600 MG/D5W (PMX) 300 ML IVPB ×2 (10:21→21:09)
[2018-05-26] MEDS: POLYETHYLENE GLYCOL 17 GM PACKET PO (11:07)
[2018-05-26] MEDS: LUBIPROSTONE 24 MCG CAP PO ×2 (11:08→21:10)
[2018-05-26] MEDS: DOXYCYCLINE 100 MG TAB PO ×2 (11:08→21:10)
[2018-05-26] MEDS: FOLIC ACID 1 MG TAB PO (11:08)
[2018-05-26] MEDS: CLARITHROMYCIN 500 MG TAB PO ×2 (11:08→21:10)
[2018-05-26] MEDS: HYDROXYUREA 500 MG CAP PO ×2 (11:11→21:13)
[2018-05-27] MEDS: morphine 4 MG/ML VIAL IV ×6 (02:18→23:17)
[2018-05-27] MEDS: DIPHENHYDRAMINE 50 MG INJ IV ×6 (02:18→23:16)
[2018-05-27] MEDS: TRIMETHOPRIM/SULFAMETHOX (DS) TAB PO ×3 (06:24→21:10)
[2018-05-27] MEDS: MEROPENEM 1 GM/50ML(PMX) 50 ML IVPB ×3 (06:24→22:47)
[2018-05-27] MEDS: LUBIPROSTONE 24 MCG CAP PO ×2 (09:17→21:10)
[2018-05-27] MEDS: POLYETHYLENE GLYCOL 17 GM PACKET PO (09:17)
[2018-05-27] MEDS: FOLIC ACID 1 MG TAB PO (09:18)
[2018-05-27] MEDS: DOXYCYCLINE 100 MG TAB PO (09:18)
[2018-05-27] MEDS: CLARITHROMYCIN 500 MG TAB PO ×2 (09:18→21:10)
[2018-05-27] MEDS: LINEZOLID 600 MG/D5W (PMX) 300 ML IVPB ×2 (09:18→21:27)
[2018-05-27] MEDS: HYDROXYUREA 500 MG CAP PO ×2 (09:21→21:15)
[2018-05-27] MEDS: ONDANSETRON 4 MG INJ IV (23:16)
[2018-05-28] MEDS: DIPHENHYDRAMINE 50 MG INJ IV ×5 (03:21→19:35)
[2018-05-28] MEDS: morphine 4 MG/ML VIAL IV ×5 (03:21→19:34)
[2018-05-28] MEDS: MEROPENEM 1 GM/50ML(PMX) 50 ML IVPB ×2 (05:34→15:18)
[2018-05-28] MEDS: TRIMETHOPRIM/SULFAMETHOX (DS) TAB PO ×2 (05:34→15:18)
[2018-05-28] MEDS: ONDANSETRON 4 MG INJ IV ×2 (07:09→15:18)
[2018-05-28] MEDS: FOLIC ACID 1 MG TAB PO (11:08)
[2018-05-28] MEDS: LUBIPROSTONE 24 MCG CAP PO (11:09)
[2018-05-28] MEDS: LINEZOLID 600 MG/D5W (PMX) 300 ML IVPB (11:10)
[2018-05-28] MEDS: POLYETHYLENE GLYCOL 17 GM PACKET PO (11:11)
[2018-05-28] MEDS: CLARITHROMYCIN 500 MG TAB PO (11:11)
[2018-05-28] MEDS: HYDROXYUREA 500 MG CAP PO (11:13)
[2018-05-28 11:29] LABS: ADD MAN DIFF? NO
[2018-05-28 11:32] LABS: BASOPHILS % 0.2 % (0.0-2.0); EOSINOPHILS # 0.1 10^3/ul (0.0-0.5); EOSINOPHILS % 1.6 % (0.0-7.0); HEMATOCRIT 25.7 % (37.0-47.0); HEMOGLOBIN 8.1 g/dl (12.0-16.0); LYMPHOCYTES # 2.4 10^3/ul (0.8-2.9); LYMPHOCYTES % 29.6 % (15.0-51.0); MEAN CORPUSCULAR HEMOGLOBIN 28.9 pg (29.0-33.0); MEAN CORPUSCULAR HGB CONC 31.5 g/dl (32.0-37.0); MEAN CORPUSCULAR VOLUME 91.8 fl (82.0-101.0); MEAN PLATELET VOLUME 10.4 fl (7.4-10.4); MONOCYTE # 0.3 10^3/ul (0.3-0.9); MONOCYTES % 3.4 % (0.0-11.0); NEUTROPHIL # 5.3 10^3/ul (1.6-7.5); NEUTROPHILS % 64.6 % (39.0-77.0); NUCLEATED RED BLOOD CELLS% 0.5 /100WBC (0.0-0.0); PLATELET COUNT 217 10^3/UL (140-415); RED CELL DISTRIBUTION WIDTH 16.2 % (11.5-14.5)
[2018-05-28 11:32] LABS: WHITE BLOOD COUNT 8.3 10^3/ul (4.8-10.8)
[2018-05-28 11:46] LABS: ALANINE AMINOTRANSFERASE 59 IU/L (13-69); ALBUMIN 3.8 g/dl (3.3-4.9); ALKALINE PHOSPHATASE 132 IU/L (42-121); ANION GAP 8 (5-13); ASPARTATE AMINO TRANSFERASE 58 IU/L (15-46); BLOOD UREA NITROGEN 17 mg/dl (7-20); CALCIUM 8.8 mg/dl (8.4-10.2); CARBON DIOXIDE 27 mmol/L (21-31); CHLORIDE 104 mmol/L (97-110); CREATININE 0.68 mg/dl (0.44-1.00); Estimated GFR > 60 mL/min (>60); GLUCOSE 96 mg/dl (70-220); POTASSIUM 4.7 mmol/L (3.5-5.1); SODIUM 139 mmol/L (135-144); TOTAL PROTEIN 7.6 g/dl (6.1-8.1)
[2018-05-28] MEDS: HEPARIN (100 UNITS/ML) 5 ML SYG CATHETER (19:46)
== END 2018-05-28 19:59 | disposition home or self-care (01) | DRG 871 ==
LOC: E/R 03:04 → PP2 05-25 15:53 → 2NE 05-25 21:22 → MS3 05:04 → TEL 21:10
PROC: 30233N1 Transfusion of Nonautologous Red Blood Cells into Peripheral Vein, Percutaneous Approach (ICD-10-PCS; principal; 2018-05-24)
DX: A41.9 Sepsis, unspecified organism (principal); D57.00 Hb-SS disease with crisis, unspecified; N39.0 Urinary tract infection, site not specified; B37.3 Candidiasis of vulva and vagina; K59.03 Drug induced constipation; E83.19 Other disorders of iron metabolism; D64.9 Anemia, unspecified; B96.20 Unspecified Escherichia coli [E. coli] as the cause of diseases classified elsewhere; R10.11 Right upper quadrant pain; T40.2X5A Adverse effect of other opioids, initial encounter; Y92.89 Other specified places as the place of occurrence of the external cause; Z87.440 Personal history of urinary (tract) infections; Z86.718 Personal history of other venous thrombosis and embolism; Z86.711 Personal history of pulmonary embolism; Z90.49 Acquired absence of other specified parts of digestive tract
CPT/HCPCS: 36415; 36430; 71045; 76641; 76705; 80048; 80053; 81003; 82105; 83605; 84484; 85025; 85610; 85730; 86644; 86850; 86900; 86901; 86920; 86945; 87040-91; 87081; 87086; 87400; 93005; 96365; 96375; 99285-25

== ENCOUNTER 2018-06-05 08:25 | Inpatient (IN) | payer OTHER ==
[2018-06-05 10:05] LABS: WHITE BLOOD COUNT 10.7 10^3/ul (4.8-10.8)
[2018-06-05 10:05] LABS: HEMATOCRIT 34.1 % (37.0-47.0); HEMOGLOBIN 10.9 g/dl (12.0-16.0); MEAN CORPUSCULAR HEMOGLOBIN 27.9 pg (29.0-33.0); MEAN CORPUSCULAR VOLUME 87.2 fl (82.0-101.0); MEAN PLATELET VOLUME 10.2 fl (7.4-10.4); NUCLEATED RED BLOOD CELLS% 0.8 /100WBC (0.0-0.0); PLATELET COUNT 264 10^3/UL (140-415); RED BLOOD COUNT 3.91 10^6/ul (4.20-5.40); RED CELL DISTRIBUTION WIDTH 17.6 % (11.5-14.5)
[2018-06-05 10:09] LABS: ADD MAN DIFF? YES
[2018-06-05] MEDS: SODIUM CHLORIDE 0.9% 1L BAG IV* (10:09)
[2018-06-05] MEDS: morphine 2 MG INJ IV (10:10)
[2018-06-05] MEDS: morphine 4 MG/ML VIAL IV ×4 (10:10→20:28)
[2018-06-05] MEDS: ONDANSETRON 4 MG INJ IV ×4 (10:14→22:15)
[2018-06-05] MEDS: DIPHENHYDRAMINE 50 MG INJ IV ×4 (10:14→20:27)
[2018-06-05 10:23] LABS: PROTIME 13.3 Sec (11.9-14.9)
[2018-06-05] MEDS: LEVOFLOXACIN 750MG/D5W (PMX) 150 ML IVPB (10:26)
[2018-06-05 10:27] LABS: ALANINE AMINOTRANSFERASE 74 IU/L (13-69); ALBUMIN 4.4 g/dl (3.3-4.9); ALBUMIN/GLOBULIN RATIO 1.02; ALKALINE PHOSPHATASE 173 IU/L (42-121); AMYLASE 108 U/L (11-123); ANION GAP 10 (5-13); ASPARTATE AMINO TRANSFERASE 72 IU/L (15-46); BILIRUBIN,INDIRECT 1.7 mg/dl (0-1.1); BILIRUBIN,TOTAL 1.7 mg/dl (0.2-1.3); BLOOD UREA NITROGEN 16 mg/dl (7-20); CALCIUM 9.3 mg/dl (8.4-10.2); CARBON DIOXIDE 23 mmol/L (21-31); CHLORIDE 108 mmol/L (97-110); CREATININE 0.77 mg/dl (0.44-1.00); Estimated GFR > 60 mL/min (>60); GLUCOSE 99 mg/dl (70-220); LIPASE 65 U/L (23-300); POTASSIUM 4.4 mmol/L (3.5-5.1); SODIUM 141 mmol/L (135-144); TOTAL PROTEIN 8.7 g/dl (6.1-8.1)
[2018-06-05 10:33] LABS: ANISOCYTOSIS 1+ (0-0); BAND NEUTROPHILS #M 0.1 10^3/ul (0.0-0.6); BAND NEUTROPHILS % (M) 1 % (0-4); BASOPHIL #M 0.2 10^3/ul (0.0-0.0); BASOPHILS % (M) 2 % (0-2); EOSINOPHILS % (M) 2 % (0-7); GIANT THROMBO% (M) 5 % (0-0); HYPOCHROMASIA 1+ (0-0); LYMPHOCYTES #M 0.4 10^3/ul (0.8-2.9); LYMPHOCYTES % (M) 4 % (15-51); MONOCYTE #M 0.5 10^3/ul (0.3-0.9); MONOCYTES % (M) 5 % (0-11); MYELOCYTES #M 0.1 10^3/ul (0.0-0.0); MYELOCYTES % (M) 1 % (0-0); PLATELET ESTIMATE NORMAL; POIKILOCYTOSIS 1+ (0-0); POLYCHROMASIA 2+ (0-0); REACTIVE LYMPHOCYTES #M 0.5 10^3/ul (0.0-0.0); REACTIVE LYMPHOCYTES% (M) 5 % (0-0); SEG NEUT #M 8.6 10^3/ul (1.6-7.5); SEGMENTED NEUTROPHILS (M) % 80 % (39-77); SICKLE CELL 1+ (0-0); SMUDGE%M 15 % (0-0); STOMATOCYTES 1+ (0-0); TARGET CELLS 1+ (0-0)
[2018-06-05 10:34] LABS: TROPONIN-I 0.015 ng/ml (0.000-0.120)
[2018-06-05 10:56] LABS: ADD UMIC YES; UR ASCORBIC ACID NEGATIVE (NEGATIVE); UR BACTERIA FEW /HPF (NONE SEEN); UR BILIRUBIN (Dip) NEGATIVE (NEGATIVE); UR BLOOD (Dip) 1+ mg/dL (NEGATIVE); UR CLARITY SLIGHTLY CLOUDY (CLEAR); UR COLOR YELLOW (YELLOW); UR GLUCOSE (Dip) NEGATIVE (NEGATIVE); UR KETONES (Dip) NEGATIVE (NEGATIVE); UR LEUKOCYTE ESTERASE (Dip) NEGATIVE Leu/ul (NEGATIVE); UR MUCUS FEW /HPF (NONE SEEN); UR NITRITE (Dip) NEGATIVE (NEGATIVE); UR RBC 1 /HPF (0-5); UR SPECIFIC GRAVITY (Dip) 1.014 (1.003-1.030); UR SQUAMOUS EPITHELIAL CELL FEW /HPF (FEW); UR TOTAL PROTEIN (Dip) NEGATIVE (NEGATIVE); UR UROBILINOGEN (Dip) NEGATIVE (NEGATIVE); UR WBC 3 /HPF (0-5)
[2018-06-05] MEDS ORDERED: ACETAMINOPHEN 325 MG TAB PO (11:30)
[2018-06-05] MEDS ORDERED: HYDROCODONE/APAP (5/325) TAB PO (12:00)
[2018-06-05] MEDS ORDERED: BISACODYL (EC) 5 MG TAB PO (12:00)
[2018-06-05] MEDS: VANCOMYCIN 1 GM (PMX) 250 ML IVPB (12:14)
[2018-06-05] MEDS: SOD CHLORIDE 0.9% 1,000 ML IV ×2 (12:25→21:48)
[2018-06-05] MEDS: ACETAMINOPHEN 325 MG TAB PO ×2 (13:48→19:38)
[2018-06-05] MEDS ORDERED: VANCOMYCIN IV PER PHARMACY XX (14:00)
[2018-06-05] MEDS: TRIMETHOPRIM/SULFAMETHOX (DS) TAB PO ×2 (14:00→21:58)
[2018-06-05] MEDS: [UNRECOGNIZED DRUG - OTHER] XX ×2 (14:30→22:30)
[2018-06-05 15:10] LABS: LACTIC ACID 1.6 mmol/L (0.5-2.0)
[2018-06-05] MEDS: MEROPENEM 1 GM/50ML(PMX) 50 ML IVPB ×2 (16:20→21:34)
[2018-06-05] MEDS: VANCOMYCIN 750 MG (PMX) 250 ML IVPB (18:38)
[2018-06-05] MEDS: LUBIPROSTONE 24 MCG CAP PO (20:20)
[2018-06-05] MEDS: CLARITHROMYCIN 500 MG TAB PO (20:20)
[2018-06-05] MEDS: FAMOTIDINE 20 MG TAB PO (20:21)
[2018-06-05] MEDS: DOXYCYCLINE 100 MG TAB PO (20:21)
[2018-06-05] MEDS: HYDROXYUREA 500 MG CAP PO (22:11)
[2018-06-06] MEDS: morphine 4 MG/ML VIAL IV ×6 (00:29→20:35)
[2018-06-06] MEDS: DIPHENHYDRAMINE 50 MG INJ IV ×6 (00:29→20:35)
[2018-06-06] MEDS: ACETAMINOPHEN 325 MG TAB PO (02:33)
[2018-06-06] MEDS: IBUPROFEN 600 MG TAB PO (03:41)
[2018-06-06] MEDS: ONDANSETRON 4 MG INJ IV ×3 (05:37→20:42)
[2018-06-06] MEDS: TRIMETHOPRIM/SULFAMETHOX (DS) TAB PO ×3 (05:39→22:08)
[2018-06-06] MEDS: MEROPENEM 1 GM/50ML(PMX) 50 ML IVPB ×3 (05:40→22:08)
[2018-06-06] MEDS: SOD CHLORIDE 0.9% 1,000 ML IV ×4 (05:40→20:43)
[2018-06-06 06:12] LABS: ADD MAN DIFF? NO
[2018-06-06 06:15] LABS: WHITE BLOOD COUNT 12.5 10^3/ul (4.8-10.8)
[2018-06-06 06:15] LABS: BASOPHIL # 0.1 10^3/ul (0.0-0.1); BASOPHILS % 0.9 % (0.0-2.0); EOSINOPHILS # 0.1 10^3/ul (0.0-0.5); EOSINOPHILS % 0.5 % (0.0-7.0); HEMATOCRIT 25.8 % (37.0-47.0); HEMOGLOBIN 8.3 g/dl (12.0-16.0); LYMPHOCYTES # 3.3 10^3/ul (0.8-2.9); LYMPHOCYTES % 26.6 % (15.0-51.0); MEAN CORPUSCULAR HEMOGLOBIN 28.5 pg (29.0-33.0); MEAN CORPUSCULAR HGB CONC 32.2 g/dl (32.0-37.0); MEAN CORPUSCULAR VOLUME 88.7 fl (82.0-101.0); MEAN PLATELET VOLUME 11.1 fl (7.4-10.4); MONOCYTE # 1.5 10^3/ul (0.3-0.9); NEUTROPHIL # 7.3 10^3/ul (1.6-7.5); NEUTROPHILS % 58.6 % (39.0-77.0); NUCLEATED RED BLOOD CELLS # 0.1 10^3/ul (0.0-0.0); NUCLEATED RED BLOOD CELLS% 0.6 /100WBC (0.0-0.0); PLATELET COUNT 253 10^3/UL (140-415); RED BLOOD COUNT 2.91 10^6/ul (4.20-5.40); RED CELL DISTRIBUTION WIDTH 17.3 % (11.5-14.5)
[2018-06-06] MEDS: [UNRECOGNIZED DRUG - OTHER] XX ×3 (06:30→22:01)
[2018-06-06 06:35] LABS: ALANINE AMINOTRANSFERASE 126 IU/L (13-69); ALBUMIN 3.7 g/dl (3.3-4.9); ALKALINE PHOSPHATASE 162 IU/L (42-121); ANION GAP 8 (5-13); ASPARTATE AMINO TRANSFERASE 148 IU/L (15-46); BILIRUBIN,INDIRECT 1.8 mg/dl (0-1.1); BILIRUBIN,TOTAL 1.8 mg/dl (0.2-1.3); BLOOD UREA NITROGEN 16 mg/dl (7-20); CALCIUM 8.2 mg/dl (8.4-10.2); CARBON DIOXIDE 22 mmol/L (21-31); CHLORIDE 108 mmol/L (97-110); CREATININE 1.12 mg/dl (0.44-1.00); Estimated GFR 58 mL/min (>60); GLUCOSE 100 mg/dl (70-220); SODIUM 138 mmol/L (135-144); TOTAL PROTEIN 7.4 g/dl (6.1-8.1)
[2018-06-06] MEDS: FAMOTIDINE 20 MG TAB PO ×2 (08:44→20:36)
[2018-06-06] MEDS: LUBIPROSTONE 24 MCG CAP PO ×2 (08:44→20:36)
[2018-06-06] MEDS: CLARITHROMYCIN 500 MG TAB PO ×2 (08:44→20:36)
[2018-06-06] MEDS: FOLIC ACID 1 MG TAB PO (08:44)
[2018-06-06] MEDS: DOXYCYCLINE 100 MG TAB PO ×2 (08:45→20:36)
[2018-06-06] MEDS: LEVOFLOXACIN 750 MG TABLET PO (08:45)
[2018-06-06] MEDS: HYDROXYUREA 500 MG CAP PO ×2 (08:50→20:38)
[2018-06-06] MEDS: ENOXAPARIN 30 MG/0.3 ML SYG SC (08:50)
[2018-06-06] MEDS: VANCOMYCIN 750 MG (PMX) 250 ML IVPB (13:49)
[2018-06-07] MEDS: DIPHENHYDRAMINE 50 MG INJ IV ×6 (00:37→20:24)
[2018-06-07] MEDS: morphine 4 MG/ML VIAL IV ×6 (00:37→20:24)
[2018-06-07] MEDS: VANCOMYCIN 750 MG (PMX) 250 ML IVPB ×2 (00:47→12:43)
[2018-06-07] MEDS: SOD CHLORIDE 0.9% 1,000 ML IV ×3 (03:48→16:18)
[2018-06-07 05:18] LABS: ADD MAN DIFF? NO
[2018-06-07 05:26] LABS: WHITE BLOOD COUNT 11.5 10^3/ul (4.8-10.8)
[2018-06-07 05:26] LABS: BASOPHIL # 0.1 10^3/ul (0.0-0.1); EOSINOPHILS # 0.5 10^3/ul (0.0-0.5); EOSINOPHILS % 4.5 % (0.0-7.0); HEMATOCRIT 23.4 % (37.0-47.0); HEMOGLOBIN 7.5 g/dl (12.0-16.0); LYMPHOCYTES # 4.4 10^3/ul (0.8-2.9); LYMPHOCYTES % 38.5 % (15.0-51.0); MEAN CORPUSCULAR HEMOGLOBIN 28.3 pg (29.0-33.0); MEAN CORPUSCULAR HGB CONC 32.1 g/dl (32.0-37.0); MEAN CORPUSCULAR VOLUME 88.3 fl (82.0-101.0); MEAN PLATELET VOLUME 11.2 fl (7.4-10.4); MONOCYTE # 1.2 10^3/ul (0.3-0.9); NEUTROPHIL # 5.1 10^3/ul (1.6-7.5); NEUTROPHILS % 44.5 % (39.0-77.0); NUCLEATED RED BLOOD CELLS # 0.1 10^3/ul (0.0-0.0); NUCLEATED RED BLOOD CELLS% 0.4 /100WBC (0.0-0.0); PLATELET COUNT 225 10^3/UL (140-415); RED BLOOD COUNT 2.65 10^6/ul (4.20-5.40); RED CELL DISTRIBUTION WIDTH 17.2 % (11.5-14.5)
[2018-06-07 05:37] LABS: ANION GAP 9 (5-13); BLOOD UREA NITROGEN 11 mg/dl (7-20); CALCIUM 8.6 mg/dl (8.4-10.2); CARBON DIOXIDE 24 mmol/L (21-31); CHLORIDE 107 mmol/L (97-110); CREATININE 0.94 mg/dl (0.44-1.00); Estimated GFR > 60 mL/min (>60); GLUCOSE 105 mg/dl (70-220); POTASSIUM 4.3 mmol/L (3.5-5.1); SODIUM 140 mmol/L (135-144)
[2018-06-07] MEDS: MEROPENEM 1 GM/50ML(PMX) 50 ML IVPB ×3 (06:12→21:58)
[2018-06-07] MEDS: TRIMETHOPRIM/SULFAMETHOX (DS) TAB PO ×3 (06:12→21:59)
[2018-06-07] MEDS: [UNRECOGNIZED DRUG - OTHER] XX ×2 (06:30→14:30)
[2018-06-07] MEDS: FAMOTIDINE 20 MG TAB PO ×2 (08:28→20:31)
[2018-06-07] MEDS: FOLIC ACID 1 MG TAB PO (08:29)
[2018-06-07] MEDS: ONDANSETRON 4 MG INJ IV (08:29)
[2018-06-07] MEDS: CLARITHROMYCIN 500 MG TAB PO ×2 (08:29→20:30)
[2018-06-07] MEDS: LUBIPROSTONE 24 MCG CAP PO ×2 (08:29→20:30)
[2018-06-07] MEDS: DOXYCYCLINE 100 MG TAB PO ×2 (08:29→20:30)
[2018-06-07] MEDS: HYDROXYUREA 500 MG CAP PO ×2 (08:32→20:33)
[2018-06-07] MEDS: ENOXAPARIN 30 MG/0.3 ML SYG SC (08:33)
[2018-06-07] MEDS: FUROSEMIDE 20 MG TAB PO (12:29)
[2018-06-07] MEDS ORDERED: ZOLPIDEM 5 MG TAB PO (12:30)
[2018-06-07] MEDS: BISACODYL (EC) 5 MG TAB PO ×2 (12:44→20:31)
[2018-06-07] MEDS: DEFERASIROX 360 MG PO (20:35)
[2018-06-08] MEDS: ZOLPIDEM 5 MG TAB PO (00:01)
[2018-06-08] MEDS: morphine 4 MG/ML VIAL IV ×6 (00:18→20:57)
[2018-06-08] MEDS: ONDANSETRON 4 MG INJ IV ×2 (00:18→20:56)
[2018-06-08] MEDS: DIPHENHYDRAMINE 50 MG INJ IV ×6 (00:18→20:56)
[2018-06-08 05:46] LABS: ADD MAN DIFF? NO
[2018-06-08 05:50] LABS: ABNORMAL IP MESSAGE 1; BASOPHIL # 0.1 10^3/ul (0.0-0.1); BASOPHILS % 1.1 % (0.0-2.0); EOSINOPHILS # 0.7 10^3/ul (0.0-0.5); EOSINOPHILS % 6.3 % (0.0-7.0); HEMATOCRIT 22.9 % (37.0-47.0); HEMOGLOBIN 7.5 g/dl (12.0-16.0); LYMPHOCYTES # 4.9 10^3/ul (0.8-2.9); MEAN CORPUSCULAR HEMOGLOBIN 28.6 pg (29.0-33.0); MEAN CORPUSCULAR HGB CONC 32.8 g/dl (32.0-37.0); MEAN CORPUSCULAR VOLUME 87.4 fl (82.0-101.0); MEAN PLATELET VOLUME 11.6 fl (7.4-10.4); MONOCYTE # 1.6 10^3/ul (0.3-0.9); MONOCYTES % 14.3 % (0.0-11.0); NEUTROPHIL # 3.9 10^3/ul (1.6-7.5); NEUTROPHILS % 34.4 % (39.0-77.0); NUCLEATED RED BLOOD CELLS # 0.1 10^3/ul (0.0-0.0); NUCLEATED RED BLOOD CELLS% 1.1 /100WBC (0.0-0.0); PLATELET COUNT 274 10^3/UL (140-415); RED BLOOD COUNT 2.62 10^6/ul (4.20-5.40); RED CELL DISTRIBUTION WIDTH 17.4 % (11.5-14.5)
[2018-06-08 05:50] LABS: WHITE BLOOD COUNT 11.4 10^3/ul (4.8-10.8)
[2018-06-08 05:55] LABS: POSITIVE DIFF @See below
[2018-06-08] MEDS: MEROPENEM 1 GM/50ML(PMX) 50 ML IVPB ×3 (06:10→21:03)
[2018-06-08] MEDS: TRIMETHOPRIM/SULFAMETHOX (DS) TAB PO ×2 (06:10→13:14)
[2018-06-08] MEDS: FUROSEMIDE 20 MG TAB PO (06:13)
[2018-06-08] MEDS: LUBIPROSTONE 24 MCG CAP PO ×2 (09:02→20:56)
[2018-06-08] MEDS: FOLIC ACID 1 MG TAB PO (09:02)
[2018-06-08] MEDS: FAMOTIDINE 20 MG TAB PO ×2 (09:02→20:56)
[2018-06-08] MEDS: HYDROXYUREA 500 MG CAP PO ×2 (09:03→21:14)
[2018-06-08] MEDS: CLARITHROMYCIN 500 MG TAB PO ×2 (09:04→20:56)
[2018-06-08] MEDS: ENOXAPARIN 30 MG/0.3 ML SYG SC (09:04)
[2018-06-08] MEDS: DOXYCYCLINE 100 MG TAB PO ×2 (09:04→20:56)
[2018-06-08] MEDS: BISACODYL (EC) 5 MG TAB PO ×3 (09:05→20:56)
[2018-06-08] MEDS: DEFERASIROX 360 MG PO ×2 (09:33→20:55)
[2018-06-08] MEDS: TRIMETHOPRIM/SULFAMETHOXAZOLE 20 ML in DEXTROSE 5% 500 ML IVPB ×2 (19:34→23:38)
[2018-06-08] MEDS: SOD CHLORIDE 0.9% 1,000 ML IV (19:34)
[2018-06-09] MEDS: DIPHENHYDRAMINE 50 MG INJ IV ×6 (01:08→21:25)
[2018-06-09] MEDS: morphine 4 MG/ML VIAL IV ×6 (01:08→21:27)
[2018-06-09] MEDS: MEROPENEM 1 GM/50ML(PMX) 50 ML IVPB ×3 (05:13→21:32)
[2018-06-09] MEDS: ONDANSETRON 4 MG INJ IV ×2 (05:13→21:43)
[2018-06-09] MEDS: FUROSEMIDE 20 MG TAB PO (05:24)
[2018-06-09] MEDS: TRIMETHOPRIM/SULFAMETHOXAZOLE 20 ML in DEXTROSE 5% 500 ML IVPB ×3 (06:28→23:21)
[2018-06-09] MEDS: FOLIC ACID 1 MG TAB PO (09:18)
[2018-06-09] MEDS: BISACODYL (EC) 5 MG TAB PO ×3 (09:18→21:32)
[2018-06-09] MEDS: DEFERASIROX 360 MG PO ×2 (09:18→21:33)
[2018-06-09] MEDS: DOXYCYCLINE 100 MG TAB PO ×2 (09:18→21:32)
[2018-06-09] MEDS: LUBIPROSTONE 24 MCG CAP PO ×2 (09:18→21:32)
[2018-06-09] MEDS: FAMOTIDINE 20 MG TAB PO ×2 (09:18→21:34)
[2018-06-09] MEDS: CLARITHROMYCIN 500 MG TAB PO ×2 (09:18→21:32)
[2018-06-09] MEDS: HYDROXYUREA 500 MG CAP PO ×2 (09:21→21:35)
[2018-06-09] MEDS: ENOXAPARIN 30 MG/0.3 ML SYG SC (09:21)
[2018-06-09] MEDS: SOD CHLORIDE 0.9% 1,000 ML IV (16:18)
[2018-06-10] MEDS: morphine 4 MG/ML VIAL IV ×6 (01:37→21:48)
[2018-06-10] MEDS: DIPHENHYDRAMINE 50 MG INJ IV ×7 (01:37→21:48)
[2018-06-10] MEDS: ACETAMINOPHEN 325 MG TAB PO (04:01)
[2018-06-10 04:17] LABS: IMMEDIATE SPIN CROSSMATCH 1 1
[2018-06-10] MEDS: FUROSEMIDE 20 MG TAB PO (06:02)
[2018-06-10] MEDS: CLARITHROMYCIN 500 MG TAB PO ×2 (09:34→20:19)
[2018-06-10] MEDS: LUBIPROSTONE 24 MCG CAP PO ×2 (09:34→20:19)
[2018-06-10] MEDS: TRIMETHOPRIM/SULFAMETHOXAZOLE 20 ML in DEXTROSE 5% 500 ML IVPB ×3 (09:34→22:31)
[2018-06-10] MEDS: FAMOTIDINE 20 MG TAB PO ×2 (09:34→20:19)
[2018-06-10] MEDS: BISACODYL (EC) 5 MG TAB PO ×3 (09:34→20:19)
[2018-06-10] MEDS: FOLIC ACID 1 MG TAB PO (09:35)
[2018-06-10] MEDS: DOXYCYCLINE 100 MG TAB PO ×2 (09:35→20:19)
[2018-06-10] MEDS: HYDROXYUREA 500 MG CAP PO ×2 (09:39→20:23)
[2018-06-10] MEDS: ENOXAPARIN 30 MG/0.3 ML SYG SC (09:40)
[2018-06-10] MEDS: DEFERASIROX 360 MG PO ×2 (09:46→20:20)
[2018-06-10] MEDS: MEROPENEM 1 GM/50ML(PMX) 50 ML IVPB ×3 (12:53→21:48)
[2018-06-10] MEDS: METHYLNALTREXONE 12 MG/0.6 ML VIAL SC (15:27)
[2018-06-10] MEDS: SOD CHLORIDE 0.9% 1,000 ML IV (16:18)
[2018-06-10] MEDS: ONDANSETRON 4 MG INJ IV (18:14)
[2018-06-11] MEDS: DIPHENHYDRAMINE 50 MG INJ IV ×5 (02:01→22:34)
[2018-06-11] MEDS: morphine 4 MG/ML VIAL IV ×5 (02:01→22:35)
[2018-06-11] MEDS: ZOLPIDEM 5 MG TAB PO (03:07)
[2018-06-11 05:40] LABS: ADD MAN DIFF? NO
[2018-06-11] MEDS: MEROPENEM 1 GM/50ML(PMX) 50 ML IVPB ×3 (05:41→22:21)
[2018-06-11] MEDS: FUROSEMIDE 20 MG TAB PO (05:42)
[2018-06-11 05:59] LABS: WHITE BLOOD COUNT 10.4 10^3/ul (4.8-10.8)
[2018-06-11 05:59] LABS: ABNORMAL IP MESSAGE 1; BASOPHIL # 0.2 10^3/ul (0.0-0.1); BASOPHILS % 1.4 % (0.0-2.0); EOSINOPHILS # 0.7 10^3/ul (0.0-0.5); EOSINOPHILS % 6.6 % (0.0-7.0); HEMATOCRIT 26.8 % (37.0-47.0); LYMPHOCYTES # 5.9 10^3/ul (0.8-2.9); LYMPHOCYTES % 56.5 % (15.0-51.0); MEAN CORPUSCULAR HEMOGLOBIN 29.1 pg (29.0-33.0); MEAN CORPUSCULAR HGB CONC 33.6 g/dl (32.0-37.0); MEAN CORPUSCULAR VOLUME 86.7 fl (82.0-101.0); MEAN PLATELET VOLUME 10.8 fl (7.4-10.4); MONOCYTE # 1.4 10^3/ul (0.3-0.9); MONOCYTES % 13.1 % (0.0-11.0); NEUTROPHIL # 2.3 10^3/ul (1.6-7.5); NEUTROPHILS % 21.9 % (39.0-77.0); NUCLEATED RED BLOOD CELLS # 0.1 10^3/ul (0.0-0.0); PLATELET COUNT 361 10^3/UL (140-415); RED BLOOD COUNT 3.09 10^6/ul (4.20-5.40); RED CELL DISTRIBUTION WIDTH 17.5 % (11.5-14.5)
[2018-06-11 06:06] LABS: ANION GAP 10 (5-13); BLOOD UREA NITROGEN 10 mg/dl (7-20); CALCIUM 9.2 mg/dl (8.4-10.2); CARBON DIOXIDE 26 mmol/L (21-31); CHLORIDE 101 mmol/L (97-110); CREATININE 0.91 mg/dl (0.44-1.00); Estimated GFR > 60 mL/min (>60); GLUCOSE 99 mg/dl (70-220); POTASSIUM 4.4 mmol/L (3.5-5.1); SODIUM 137 mmol/L (135-144)
[2018-06-11 06:33] LABS: IRON 188 ug/dl (35-150)
[2018-06-11 06:43] LABS: % IRON SATURATION 80 % SAT (22-52); TOTAL IRON BINDING CAPACITY 236 ug/dl (241-421)
[2018-06-11 06:47] LABS: POSITIVE DIFF @See below
[2018-06-11 06:55] LABS: ALANINE AMINOTRANSFERASE 88 IU/L (13-69); ALBUMIN 4.2 g/dl (3.3-4.9); ALKALINE PHOSPHATASE 162 IU/L (42-121); ASPARTATE AMINO TRANSFERASE 115 IU/L (15-46); BILIRUBIN,INDIRECT 0.4 mg/dl (0-1.1); BILIRUBIN,TOTAL 0.4 mg/dl (0.2-1.3); TOTAL PROTEIN 8.2 g/dl (6.1-8.1)
[2018-06-11] MEDS: TRIMETHOPRIM/SULFAMETHOXAZOLE 20 ML in DEXTROSE 5% 500 ML IVPB ×3 (07:25→23:20)
[2018-06-11] MEDS: BISACODYL (EC) 5 MG TAB PO ×3 (09:45→22:22)
[2018-06-11] MEDS: LUBIPROSTONE 24 MCG CAP PO ×2 (09:45→22:21)
[2018-06-11] MEDS: DOXYCYCLINE 100 MG TAB PO ×2 (09:45→22:21)
[2018-06-11] MEDS: CLARITHROMYCIN 500 MG TAB PO ×2 (09:45→22:22)
[2018-06-11] MEDS: FAMOTIDINE 20 MG TAB PO ×2 (09:45→22:22)
[2018-06-11] MEDS: FOLIC ACID 1 MG TAB PO (09:46)
[2018-06-11] MEDS: DEFERASIROX 360 MG PO ×2 (09:46→22:21)
[2018-06-11] MEDS: ENOXAPARIN 30 MG/0.3 ML SYG SC (09:51)
[2018-06-11] MEDS: HYDROXYUREA 500 MG CAP PO ×2 (09:51→22:25)
[2018-06-11] MEDS: SOD CHLORIDE 0.9% 1,000 ML IV (16:18)
[2018-06-11] MEDS: ONDANSETRON 4 MG INJ IV (17:38)
[2018-06-11] MEDS: METHYLNALTREXONE 12 MG/0.6 ML VIAL SC (22:20)
[2018-06-11] MEDS: POLYETHYLENE GLYCOL 17 GM PACKET PO (22:22)
[2018-06-12] MEDS: SOD CHLORIDE 0.9% 1,000 ML IV (01:10)
[2018-06-12] MEDS: ZOLPIDEM 5 MG TAB PO (01:57)
[2018-06-12] MEDS: DIPHENHYDRAMINE 50 MG INJ IV ×6 (02:39→22:48)
[2018-06-12] MEDS: morphine 4 MG/ML VIAL IV ×6 (02:39→22:48)
[2018-06-12] MEDS: MEROPENEM 1 GM/50ML(PMX) 50 ML IVPB ×3 (05:03→22:19)
[2018-06-12] MEDS: TRIMETHOPRIM/SULFAMETHOXAZOLE 20 ML in DEXTROSE 5% 500 ML IVPB ×3 (05:47→23:41)
[2018-06-12] MEDS: FUROSEMIDE 20 MG TAB PO ×2 (06:00→10:37)
[2018-06-12 06:02] LABS: ADD MAN DIFF? NO
[2018-06-12 06:11] LABS: WHITE BLOOD COUNT 14.4 10^3/ul (4.8-10.8)
[2018-06-12 06:11] LABS: ABNORMAL IP MESSAGE 1; BASOPHIL # 0.1 10^3/ul (0.0-0.1); BASOPHILS % 0.7 % (0.0-2.0); EOSINOPHILS # 0.6 10^3/ul (0.0-0.5); EOSINOPHILS % 4.2 % (0.0-7.0); HEMATOCRIT 27.4 % (37.0-47.0); HEMOGLOBIN 9.1 g/dl (12.0-16.0); LYMPHOCYTES % 34.9 % (15.0-51.0); MEAN CORPUSCULAR HGB CONC 33.2 g/dl (32.0-37.0); MEAN CORPUSCULAR VOLUME 87.3 fl (82.0-101.0); MONOCYTE # 1.5 10^3/ul (0.3-0.9); MONOCYTES % 10.2 % (0.0-11.0); NEUTROPHIL # 7.1 10^3/ul (1.6-7.5); NEUTROPHILS % 49.4 % (39.0-77.0); NUCLEATED RED BLOOD CELLS # 0.1 10^3/ul (0.0-0.0); NUCLEATED RED BLOOD CELLS% 0.6 /100WBC (0.0-0.0); PLATELET COUNT 379 10^3/UL (140-415); RED BLOOD COUNT 3.14 10^6/ul (4.20-5.40); RED CELL DISTRIBUTION WIDTH 17.6 % (11.5-14.5)
[2018-06-12 06:20] LABS: POSITIVE DIFF @See below
[2018-06-12 06:33] LABS: ANION GAP 12 (5-13); BLOOD UREA NITROGEN 11 mg/dl (7-20); CARBON DIOXIDE 25 mmol/L (21-31); CHLORIDE 100 mmol/L (97-110); CREATININE 0.95 mg/dl (0.44-1.00); Estimated GFR > 60 mL/min (>60); GLUCOSE 106 mg/dl (70-220); POTASSIUM 5.1 mmol/L (3.5-5.1); SODIUM 137 mmol/L (135-144)
[2018-06-12] MEDS: FAMOTIDINE 20 MG TAB PO ×2 (10:37→21:06)
[2018-06-12] MEDS: DOXYCYCLINE 100 MG TAB PO ×2 (10:37→21:06)
[2018-06-12] MEDS: CLARITHROMYCIN 500 MG TAB PO ×2 (10:37→21:06)
[2018-06-12] MEDS: BISACODYL (EC) 5 MG TAB PO ×3 (10:37→21:06)
[2018-06-12] MEDS: LUBIPROSTONE 24 MCG CAP PO ×2 (10:37→21:06)
[2018-06-12] MEDS: FOLIC ACID 1 MG TAB PO (10:37)
[2018-06-12] MEDS: POLYETHYLENE GLYCOL 17 GM PACKET PO ×2 (10:38→21:06)
[2018-06-12] MEDS: DEFERASIROX 360 MG PO ×2 (10:38→21:07)
[2018-06-12] MEDS: HYDROXYUREA 500 MG CAP PO ×2 (10:39→21:10)
[2018-06-12] MEDS: ENOXAPARIN 30 MG/0.3 ML SYG SC (10:40)
[2018-06-12] MEDS: METHYLNALTREXONE 12 MG/0.6 ML VIAL SC (14:27)
[2018-06-12] MEDS: ONDANSETRON 4 MG INJ IV (18:44)
[2018-06-13] MEDS: DIPHENHYDRAMINE 50 MG INJ IV ×5 (04:25→23:34)
[2018-06-13] MEDS: morphine 4 MG/ML VIAL IV ×5 (04:26→23:35)
[2018-06-13] MEDS: ONDANSETRON 4 MG INJ IV ×2 (04:26→19:30)
[2018-06-13 05:32] LABS: ADD MAN DIFF? NO
[2018-06-13 05:46] LABS: BASOPHIL # 0.1 10^3/ul (0.0-0.1); BASOPHILS % 1.2 % (0.0-2.0); EOSINOPHILS # 0.6 10^3/ul (0.0-0.5); EOSINOPHILS % 5.4 % (0.0-7.0); HEMOGLOBIN 9.6 g/dl (12.0-16.0); LYMPHOCYTES # 4.9 10^3/ul (0.8-2.9); LYMPHOCYTES % 44.6 % (15.0-51.0); MEAN CORPUSCULAR HEMOGLOBIN 28.6 pg (29.0-33.0); MEAN CORPUSCULAR HGB CONC 33.1 g/dl (32.0-37.0); MEAN CORPUSCULAR VOLUME 86.3 fl (82.0-101.0); MEAN PLATELET VOLUME 10.4 fl (7.4-10.4); MONOCYTE # 1.1 10^3/ul (0.3-0.9); MONOCYTES % 9.9 % (0.0-11.0); NEUTROPHIL # 4.3 10^3/ul (1.6-7.5); NEUTROPHILS % 38.4 % (39.0-77.0); NUCLEATED RED BLOOD CELLS # 0.1 10^3/ul (0.0-0.0); NUCLEATED RED BLOOD CELLS% 0.5 /100WBC (0.0-0.0); PLATELET COUNT 397 10^3/UL (140-415); RED BLOOD COUNT 3.36 10^6/ul (4.20-5.40); RED CELL DISTRIBUTION WIDTH 17.2 % (11.5-14.5)
[2018-06-13 06:01] LABS: ANION GAP 13 (5-13); BLOOD UREA NITROGEN 14 mg/dl (7-20); CALCIUM 9.3 mg/dl (8.4-10.2); CARBON DIOXIDE 25 mmol/L (21-31); CHLORIDE 100 mmol/L (97-110); Estimated GFR > 60 mL/min (>60); GLUCOSE 99 mg/dl (70-220); POTASSIUM 5.3 mmol/L (3.5-5.1); SODIUM 138 mmol/L (135-144)
[2018-06-13] MEDS: FUROSEMIDE 20 MG TAB PO (06:02)
[2018-06-13] MEDS: MEROPENEM 1 GM/50ML(PMX) 50 ML IVPB ×2 (06:02→14:10)
[2018-06-13] MEDS: SOD CHLORIDE 0.9% 1,000 ML IV ×3 (06:35→20:53)
[2018-06-13] MEDS: TRIMETHOPRIM/SULFAMETHOXAZOLE 20 ML in DEXTROSE 5% 500 ML IVPB ×2 (06:54→14:13)
[2018-06-13] MEDS: LUBIPROSTONE 24 MCG CAP PO ×2 (09:00→20:53)
[2018-06-13] MEDS: BISACODYL (EC) 5 MG TAB PO ×3 (11:29→20:53)
[2018-06-13] MEDS: CLARITHROMYCIN 500 MG TAB PO ×2 (11:29→20:53)
[2018-06-13] MEDS: FAMOTIDINE 20 MG TAB PO ×2 (11:29→20:53)
[2018-06-13] MEDS: DEFERASIROX 360 MG PO ×2 (11:29→20:52)
[2018-06-13] MEDS: DOXYCYCLINE 100 MG TAB PO ×2 (11:29→20:52)
[2018-06-13] MEDS: FOLIC ACID 1 MG TAB PO (11:29)
[2018-06-13] MEDS: ENOXAPARIN 30 MG/0.3 ML SYG SC (11:30)
[2018-06-13] MEDS: HYDROXYUREA 500 MG CAP PO ×2 (11:30→20:57)
[2018-06-13] MEDS: POLYETHYLENE GLYCOL 17 GM PACKET PO ×2 (11:31→20:54)
[2018-06-14] MEDS: morphine 4 MG/ML VIAL IV ×5 (03:50→19:55)
[2018-06-14] MEDS: DIPHENHYDRAMINE 50 MG INJ IV ×5 (03:50→19:56)
[2018-06-14] MEDS: SOD CHLORIDE 0.9% 1,000 ML IV ×3 (04:47→19:22)
[2018-06-14] MEDS: FUROSEMIDE 20 MG TAB PO ×2 (06:00→08:40)
[2018-06-14] MEDS: CLARITHROMYCIN 500 MG TAB PO ×2 (08:39→21:48)
[2018-06-14] MEDS: DOXYCYCLINE 100 MG TAB PO ×2 (08:40→21:48)
[2018-06-14] MEDS: FOLIC ACID 1 MG TAB PO (08:40)
[2018-06-14] MEDS: FAMOTIDINE 20 MG TAB PO ×2 (08:40→21:48)
[2018-06-14] MEDS: BISACODYL (EC) 5 MG TAB PO ×3 (08:40→21:48)
[2018-06-14] MEDS: POLYETHYLENE GLYCOL 17 GM PACKET PO ×2 (08:40→21:46)
[2018-06-14] MEDS: LUBIPROSTONE 24 MCG CAP PO ×2 (08:41→21:48)
[2018-06-14] MEDS: DEFERASIROX 360 MG PO ×2 (08:41→21:48)
[2018-06-14] MEDS: HYDROXYUREA 500 MG CAP PO ×2 (08:43→21:52)
[2018-06-14] MEDS: ENOXAPARIN 30 MG/0.3 ML SYG SC (08:44)
[2018-06-14] MEDS: METHYLNALTREXONE 12 MG/0.6 ML VIAL SC (14:24)
[2018-06-14 15:57] LABS: ADD MAN DIFF? NO
[2018-06-14 16:00] LABS: WHITE BLOOD COUNT 10.5 10^3/ul (4.8-10.8)
[2018-06-14 16:00] LABS: BASOPHIL # 0.1 10^3/ul (0.0-0.1); EOSINOPHILS # 0.5 10^3/ul (0.0-0.5); EOSINOPHILS % 4.4 % (0.0-7.0); HEMOGLOBIN 8.5 g/dl (12.0-16.0); LYMPHOCYTES # 3.9 10^3/ul (0.8-2.9); LYMPHOCYTES % 37.1 % (15.0-51.0); MEAN CORPUSCULAR HEMOGLOBIN 28.1 pg (29.0-33.0); MEAN CORPUSCULAR HGB CONC 32.7 g/dl (32.0-37.0); MEAN CORPUSCULAR VOLUME 86.1 fl (82.0-101.0); MEAN PLATELET VOLUME 10.6 fl (7.4-10.4); MONOCYTE # 0.9 10^3/ul (0.3-0.9); MONOCYTES % 8.9 % (0.0-11.0); NEUTROPHILS % 47.9 % (39.0-77.0); NUCLEATED RED BLOOD CELLS% 0.3 /100WBC (0.0-0.0); PLATELET COUNT 368 10^3/UL (140-415); RED BLOOD COUNT 3.02 10^6/ul (4.20-5.40); RED CELL DISTRIBUTION WIDTH 17.1 % (11.5-14.5)
[2018-06-14 16:21] LABS: ANION GAP 8 (5-13); BLOOD UREA NITROGEN 17 mg/dl (7-20); CALCIUM 9.4 mg/dl (8.4-10.2); CARBON DIOXIDE 23 mmol/L (21-31); CHLORIDE 106 mmol/L (97-110); CREATININE 0.95 mg/dl (0.44-1.00); Estimated GFR > 60 mL/min (>60); GLUCOSE 80 mg/dl (70-220); POTASSIUM 5.4 mmol/L (3.5-5.1); SODIUM 137 mmol/L (135-144)
[2018-06-14] MEDS: ZOLPIDEM 5 MG TAB PO (23:29)
[2018-06-15] MEDS: DIPHENHYDRAMINE 50 MG INJ IV ×5 (00:08→21:06)
[2018-06-15] MEDS: morphine 4 MG/ML VIAL IV ×5 (00:09→21:07)
[2018-06-15] MEDS: SOD CHLORIDE 0.9% 1,000 ML IV ×3 (01:29→21:54)
[2018-06-15] MEDS: FUROSEMIDE 20 MG TAB PO (06:00)
[2018-06-15] MEDS: POLYETHYLENE GLYCOL 17 GM PACKET PO ×2 (09:02→21:01)
[2018-06-15] MEDS: BISACODYL (EC) 5 MG TAB PO ×3 (09:02→21:00)
[2018-06-15] MEDS: DOXYCYCLINE 100 MG TAB PO ×2 (09:02→20:59)
[2018-06-15] MEDS: FAMOTIDINE 20 MG TAB PO ×2 (09:02→21:00)
[2018-06-15] MEDS: LUBIPROSTONE 24 MCG CAP PO ×2 (09:03→20:59)
[2018-06-15] MEDS: FOLIC ACID 1 MG TAB PO (09:03)
[2018-06-15] MEDS: CLARITHROMYCIN 500 MG TAB PO ×2 (09:03→20:59)
[2018-06-15] MEDS: HYDROXYUREA 500 MG CAP PO ×2 (09:12→21:19)
[2018-06-15] MEDS: ENOXAPARIN 30 MG/0.3 ML SYG SC (09:13)
[2018-06-15] MEDS: DEFERASIROX 360 MG PO ×2 (09:14→20:59)
[2018-06-15 10:41] LABS: ADD MAN DIFF? NO
[2018-06-15 10:46] LABS: BASOPHIL # 0.1 10^3/ul (0.0-0.1); BASOPHILS % 1.2 % (0.0-2.0); EOSINOPHILS # 0.5 10^3/ul (0.0-0.5); EOSINOPHILS % 5.9 % (0.0-7.0); HEMATOCRIT 26.8 % (37.0-47.0); HEMOGLOBIN 8.8 g/dl (12.0-16.0); LYMPHOCYTES % 33.7 % (15.0-51.0); MEAN CORPUSCULAR HEMOGLOBIN 28.3 pg (29.0-33.0); MEAN CORPUSCULAR HGB CONC 32.8 g/dl (32.0-37.0); MEAN CORPUSCULAR VOLUME 86.2 fl (82.0-101.0); MEAN PLATELET VOLUME 10.3 fl (7.4-10.4); MONOCYTES % 11.4 % (0.0-11.0); NEUTROPHIL # 4.2 10^3/ul (1.6-7.5); NEUTROPHILS % 47.2 % (39.0-77.0); NUCLEATED RED BLOOD CELLS% 0.3 /100WBC (0.0-0.0); PLATELET COUNT 376 10^3/UL (140-415); RED BLOOD COUNT 3.11 10^6/ul (4.20-5.40); RED CELL DISTRIBUTION WIDTH 17.3 % (11.5-14.5)
[2018-06-15 11:12] LABS: ANION GAP 10 (5-13); BLOOD UREA NITROGEN 17 mg/dl (7-20); CALCIUM 9.1 mg/dl (8.4-10.2); CARBON DIOXIDE 24 mmol/L (21-31); CHLORIDE 103 mmol/L (97-110); CREATININE 0.78 mg/dl (0.44-1.00); Estimated GFR > 60 mL/min (>60); GLUCOSE 126 mg/dl (70-220); POTASSIUM 5.3 mmol/L (3.5-5.1); SODIUM 137 mmol/L (135-144)
[2018-06-15] MEDS: ONDANSETRON 4 MG INJ IV (12:59)
[2018-06-15] MEDS: NA POLYST SULFON 15 GM/60 ML BTL PO (15:57)
[2018-06-15] MEDS: METHYLNALTREXONE 12 MG/0.6 ML VIAL SC (21:12)
[2018-06-16] MEDS: morphine 4 MG/ML VIAL IV ×6 (01:04→23:21)
[2018-06-16] MEDS: DIPHENHYDRAMINE 50 MG INJ IV ×6 (01:04→23:20)
[2018-06-16] MEDS: ONDANSETRON 4 MG INJ IV ×2 (01:04→11:01)
[2018-06-16] MEDS: FUROSEMIDE 20 MG TAB PO (06:27)
[2018-06-16] MEDS: DEFERASIROX 360 MG PO ×2 (09:00→10:57)
[2018-06-16] MEDS: POLYETHYLENE GLYCOL 17 GM PACKET PO ×2 (09:00→21:00)
[2018-06-16] MEDS: FOLIC ACID 1 MG TAB PO (09:22)
[2018-06-16] MEDS: FAMOTIDINE 20 MG TAB PO ×2 (09:22→23:19)
[2018-06-16] MEDS: DOXYCYCLINE 100 MG TAB PO ×2 (09:22→23:20)
[2018-06-16] MEDS: LUBIPROSTONE 24 MCG CAP PO ×2 (09:22→23:19)
[2018-06-16] MEDS: BISACODYL (EC) 5 MG TAB PO ×3 (09:22→23:20)
[2018-06-16] MEDS: CLARITHROMYCIN 500 MG TAB PO ×2 (09:22→23:18)
[2018-06-16] MEDS: HYDROXYUREA 500 MG CAP PO ×2 (09:24→23:23)
[2018-06-16] MEDS: ENOXAPARIN 30 MG/0.3 ML SYG SC (09:24)
[2018-06-16] MEDS: SOD CHLORIDE 0.9% 250 ML IV* (09:57)
[2018-06-16] MEDS: SOD CHLORIDE 0.9% 1,000 ML IV (11:09)
[2018-06-16] MEDS ORDERED: LACTULOSE 30ML CUP PO (15:00)
[2018-06-16] MEDS: METHYLNALTREXONE 12 MG/0.6 ML VIAL SC (23:19)
[2018-06-17] MEDS: SOD CHLORIDE 0.9% 1,000 ML IV ×2 (01:03→16:34)
[2018-06-17] MEDS: DIPHENHYDRAMINE 50 MG INJ IV ×5 (03:26→20:36)
[2018-06-17] MEDS: morphine 4 MG/ML VIAL IV ×5 (03:27→20:36)
[2018-06-17 08:14] LABS: ADD MAN DIFF? NO
[2018-06-17 08:22] LABS: WHITE BLOOD COUNT 12.4 10^3/ul (4.8-10.8)
[2018-06-17 08:22] LABS: BASOPHIL # 0.1 10^3/ul (0.0-0.1); BASOPHILS % 0.6 % (0.0-2.0); EOSINOPHILS # 0.4 10^3/ul (0.0-0.5); EOSINOPHILS % 3.4 % (0.0-7.0); HEMATOCRIT 24.5 % (37.0-47.0); HEMOGLOBIN 7.9 g/dl (12.0-16.0); LYMPHOCYTES # 3.2 10^3/ul (0.8-2.9); MEAN CORPUSCULAR HEMOGLOBIN 28.1 pg (29.0-33.0); MEAN CORPUSCULAR HGB CONC 32.2 g/dl (32.0-37.0); MEAN CORPUSCULAR VOLUME 87.2 fl (82.0-101.0); MEAN PLATELET VOLUME 10.8 fl (7.4-10.4); MONOCYTE # 1.4 10^3/ul (0.3-0.9); MONOCYTES % 11.5 % (0.0-11.0); NEUTROPHIL # 7.2 10^3/ul (1.6-7.5); NEUTROPHILS % 58.1 % (39.0-77.0); NUCLEATED RED BLOOD CELLS% 0.2 /100WBC (0.0-0.0); PLATELET COUNT 318 10^3/UL (140-415); RED BLOOD COUNT 2.81 10^6/ul (4.20-5.40); RED CELL DISTRIBUTION WIDTH 17.2 % (11.5-14.5)
[2018-06-17 08:33] LABS: ANION GAP 6 (5-13); BLOOD UREA NITROGEN 11 mg/dl (7-20); CALCIUM 9.1 mg/dl (8.4-10.2); CARBON DIOXIDE 27 mmol/L (21-31); CHLORIDE 107 mmol/L (97-110); CREATININE 0.64 mg/dl (0.44-1.00); Estimated GFR > 60 mL/min (>60); GLUCOSE 131 mg/dl (70-220); POTASSIUM 4.2 mmol/L (3.5-5.1); SODIUM 140 mmol/L (135-144)
[2018-06-17] MEDS: POLYETHYLENE GLYCOL 17 GM PACKET PO ×2 (10:39→20:37)
[2018-06-17] MEDS: BISACODYL (EC) 5 MG TAB PO ×3 (10:39→20:30)
[2018-06-17] MEDS: MAGNESIUM HYDROXIDE 30ML CUP PO (10:39)
[2018-06-17] MEDS: FAMOTIDINE 20 MG TAB PO ×2 (10:39→20:30)
[2018-06-17] MEDS: CLARITHROMYCIN 500 MG TAB PO ×2 (10:40→20:30)
[2018-06-17] MEDS: LUBIPROSTONE 24 MCG CAP PO ×2 (10:40→20:30)
[2018-06-17] MEDS: DOXYCYCLINE 100 MG TAB PO ×2 (10:40→20:30)
[2018-06-17] MEDS: FOLIC ACID 1 MG TAB PO (10:40)
[2018-06-17] MEDS: HYDROXYUREA 500 MG CAP PO ×2 (10:44→20:35)
[2018-06-17] MEDS: ENOXAPARIN 30 MG/0.3 ML SYG SC (10:45)
[2018-06-17] MEDS: DEFERASIROX 360 MG PO ×2 (10:45→20:35)
[2018-06-17] MEDS: FUROSEMIDE 20 MG TAB PO (10:51)
[2018-06-17] MEDS: ONDANSETRON 4 MG INJ IV (16:33)
[2018-06-17] MEDS: METHYLNALTREXONE 12 MG/0.6 ML VIAL SC (20:36)
[2018-06-18] MEDS: DIPHENHYDRAMINE 50 MG INJ IV ×6 (00:28→20:31)
[2018-06-18] MEDS: morphine 4 MG/ML VIAL IV ×6 (00:28→20:31)
[2018-06-18] MEDS: MEROPENEM 1 GM/50ML(PMX) 50 ML IVPB ×3 (03:10→21:34)
[2018-06-18 05:06] LABS: ADD UMIC YES; UR ASCORBIC ACID NEGATIVE (NEGATIVE); UR BILIRUBIN (Dip) NEGATIVE (NEGATIVE); UR BLOOD (Dip) 1+ mg/dL (NEGATIVE); UR CLARITY CLEAR (CLEAR); UR COLOR YELLOW (YELLOW); UR GLUCOSE (Dip) NEGATIVE (NEGATIVE); UR KETONES (Dip) NEGATIVE (NEGATIVE); UR LEUKOCYTE ESTERASE (Dip) NEGATIVE Leu/ul (NEGATIVE); UR NITRITE (Dip) NEGATIVE (NEGATIVE); UR RBC 4 /HPF (0-5); UR SPECIFIC GRAVITY (Dip) 1.011 (1.003-1.030); UR SQUAMOUS EPITHELIAL CELL FEW /HPF (FEW); UR TOTAL PROTEIN (Dip) NEGATIVE (NEGATIVE); UR UROBILINOGEN (Dip) NEGATIVE (NEGATIVE); UR WBC 1 /HPF (0-5)
[2018-06-18] MEDS: FUROSEMIDE 20 MG TAB PO (06:32)
[2018-06-18] MEDS: DOXYCYCLINE 100 MG TAB PO ×2 (08:30→20:30)
[2018-06-18] MEDS: FAMOTIDINE 20 MG TAB PO ×2 (08:31→20:31)
[2018-06-18] MEDS: LUBIPROSTONE 24 MCG CAP PO ×2 (08:31→20:31)
[2018-06-18] MEDS: POLYETHYLENE GLYCOL 17 GM PACKET PO ×2 (08:31→20:31)
[2018-06-18] MEDS: CLARITHROMYCIN 500 MG TAB PO ×2 (08:31→21:34)
[2018-06-18] MEDS: BISACODYL (EC) 5 MG TAB PO ×3 (08:31→20:31)
[2018-06-18] MEDS: FOLIC ACID 1 MG TAB PO (08:31)
[2018-06-18 08:34] LABS: ADD MAN DIFF? NO
[2018-06-18 08:39] LABS: BASOPHIL # 0.1 10^3/ul (0.0-0.1); BASOPHILS % 0.9 % (0.0-2.0); EOSINOPHILS # 0.4 10^3/ul (0.0-0.5); HEMATOCRIT 23.4 % (37.0-47.0); HEMOGLOBIN 7.7 g/dl (12.0-16.0); LYMPHOCYTES # 3.7 10^3/ul (0.8-2.9); LYMPHOCYTES % 38.1 % (15.0-51.0); MEAN CORPUSCULAR HEMOGLOBIN 28.7 pg (29.0-33.0); MEAN CORPUSCULAR HGB CONC 32.9 g/dl (32.0-37.0); MEAN CORPUSCULAR VOLUME 87.3 fl (82.0-101.0); MEAN PLATELET VOLUME 10.9 fl (7.4-10.4); MONOCYTE # 1.3 10^3/ul (0.3-0.9); MONOCYTES % 13.3 % (0.0-11.0); NEUTROPHIL # 4.2 10^3/ul (1.6-7.5); NEUTROPHILS % 43.4 % (39.0-77.0); NUCLEATED RED BLOOD CELLS% 0.2 /100WBC (0.0-0.0); PLATELET COUNT 270 10^3/UL (140-415); RED BLOOD COUNT 2.68 10^6/ul (4.20-5.40); RED CELL DISTRIBUTION WIDTH 17.3 % (11.5-14.5)
[2018-06-18 08:39] LABS: WHITE BLOOD COUNT 9.6 10^3/ul (4.8-10.8)
[2018-06-18] MEDS: DEFERASIROX 360 MG PO ×2 (08:39→20:30)
[2018-06-18] MEDS: HYDROXYUREA 500 MG CAP PO ×2 (08:41→21:36)
[2018-06-18] MEDS: ENOXAPARIN 30 MG/0.3 ML SYG SC (08:42)
[2018-06-18] MEDS: SOD CHLORIDE 0.9% 1,000 ML IV (12:41)
[2018-06-18] MEDS: METHYLNALTREXONE 12 MG/0.6 ML VIAL SC (20:32)
[2018-06-19] MEDS: morphine 4 MG/ML VIAL IV ×6 (00:34→20:26)
[2018-06-19] MEDS: DIPHENHYDRAMINE 50 MG INJ IV ×6 (00:34→20:26)
[2018-06-19] MEDS: ONDANSETRON 4 MG INJ IV ×2 (04:42→12:29)
[2018-06-19] MEDS: FUROSEMIDE 20 MG TAB PO (06:31)
[2018-06-19] MEDS: MEROPENEM 1 GM/50ML(PMX) 50 ML IVPB ×3 (06:31→21:30)
[2018-06-19] MEDS: DEFERASIROX 360 MG PO ×2 (08:31→20:19)
[2018-06-19] MEDS: FAMOTIDINE 20 MG TAB PO ×2 (08:32→20:17)
[2018-06-19] MEDS: BISACODYL (EC) 5 MG TAB PO ×3 (08:32→20:18)
[2018-06-19] MEDS: DOXYCYCLINE 100 MG TAB PO ×2 (08:32→20:18)
[2018-06-19] MEDS: FOLIC ACID 1 MG TAB PO (08:32)
[2018-06-19] MEDS: CLARITHROMYCIN 500 MG TAB PO ×2 (08:32→20:18)
[2018-06-19] MEDS: LUBIPROSTONE 24 MCG CAP PO ×2 (08:32→20:17)
[2018-06-19] MEDS: POLYETHYLENE GLYCOL 17 GM PACKET PO ×2 (08:32→20:17)
[2018-06-19] MEDS: HYDROXYUREA 500 MG CAP PO ×2 (08:32→20:25)
[2018-06-19] MEDS: ENOXAPARIN 30 MG/0.3 ML SYG SC (08:33)
[2018-06-19 10:59] LABS: ADD MAN DIFF? NO
[2018-06-19 11:01] LABS: WHITE BLOOD COUNT 10.2 10^3/ul (4.8-10.8)
[2018-06-19 11:01] LABS: BASOPHIL # 0.1 10^3/ul (0.0-0.1); BASOPHILS % 1.1 % (0.0-2.0); EOSINOPHILS # 0.6 10^3/ul (0.0-0.5); EOSINOPHILS % 5.4 % (0.0-7.0); HEMATOCRIT 23.7 % (37.0-47.0); HEMOGLOBIN 7.7 g/dl (12.0-16.0); LYMPHOCYTES # 4.3 10^3/ul (0.8-2.9); LYMPHOCYTES % 42.6 % (15.0-51.0); MEAN CORPUSCULAR HEMOGLOBIN 28.3 pg (29.0-33.0); MEAN CORPUSCULAR HGB CONC 32.5 g/dl (32.0-37.0); MEAN CORPUSCULAR VOLUME 87.1 fl (82.0-101.0); MONOCYTE # 1.3 10^3/ul (0.3-0.9); MONOCYTES % 12.6 % (0.0-11.0); NEUTROPHIL # 3.9 10^3/ul (1.6-7.5); NEUTROPHILS % 37.9 % (39.0-77.0); NUCLEATED RED BLOOD CELLS% 0.3 /100WBC (0.0-0.0); PLATELET COUNT 291 10^3/UL (140-415); RED BLOOD COUNT 2.72 10^6/ul (4.20-5.40); RED CELL DISTRIBUTION WIDTH 17.3 % (11.5-14.5)
[2018-06-19 11:56] LABS: ANION GAP 9 (5-13); BLOOD UREA NITROGEN 16 mg/dl (7-20); CALCIUM 9.3 mg/dl (8.4-10.2); CARBON DIOXIDE 27 mmol/L (21-31); CHLORIDE 105 mmol/L (97-110); Estimated GFR > 60 mL/min (>60); GLUCOSE 91 mg/dl (70-220); POTASSIUM 4.6 mmol/L (3.5-5.1); SODIUM 141 mmol/L (135-144)
[2018-06-19] MEDS: METHYLNALTREXONE 12 MG/0.6 ML VIAL SC (20:18)
[2018-06-20] MEDS: DIPHENHYDRAMINE 50 MG INJ IV ×6 (00:25→22:58)
[2018-06-20] MEDS: morphine 4 MG/ML VIAL IV ×6 (00:26→22:58)
[2018-06-20] MEDS: MEROPENEM 1 GM/50ML(PMX) 50 ML IVPB ×3 (05:30→21:34)
[2018-06-20] MEDS: FUROSEMIDE 20 MG TAB PO (05:30)
[2018-06-20 05:54] LABS: ADD MAN DIFF? NO
[2018-06-20 05:59] LABS: BASOPHIL # 0.1 10^3/ul (0.0-0.1); BASOPHILS % 1.2 % (0.0-2.0); EOSINOPHILS # 0.5 10^3/ul (0.0-0.5); EOSINOPHILS % 4.9 % (0.0-7.0); HEMOGLOBIN 7.8 g/dl (12.0-16.0); LYMPHOCYTES # 4.1 10^3/ul (0.8-2.9); LYMPHOCYTES % 38.9 % (15.0-51.0); MEAN CORPUSCULAR HGB CONC 32.5 g/dl (32.0-37.0); MEAN PLATELET VOLUME 10.9 fl (7.4-10.4); MONOCYTE # 1.1 10^3/ul (0.3-0.9); MONOCYTES % 10.5 % (0.0-11.0); NEUTROPHIL # 4.6 10^3/ul (1.6-7.5); NEUTROPHILS % 44.1 % (39.0-77.0); NUCLEATED RED BLOOD CELLS% 0.4 /100WBC (0.0-0.0); PLATELET COUNT 301 10^3/UL (140-415); RED BLOOD COUNT 2.79 10^6/ul (4.20-5.40); RED CELL DISTRIBUTION WIDTH 17.1 % (11.5-14.5)
[2018-06-20 05:59] LABS: WHITE BLOOD COUNT 10.5 10^3/ul (4.8-10.8)
[2018-06-20 06:31] LABS: ANION GAP 9 (5-13); BLOOD UREA NITROGEN 15 mg/dl (7-20); CARBON DIOXIDE 30 mmol/L (21-31); CHLORIDE 101 mmol/L (97-110); CREATININE 0.75 mg/dl (0.44-1.00); Estimated GFR > 60 mL/min (>60); GLUCOSE 112 mg/dl (70-220); POTASSIUM 4.8 mmol/L (3.5-5.1); SODIUM 140 mmol/L (135-144)
[2018-06-20] MEDS: DOXYCYCLINE 100 MG TAB PO ×2 (09:16→21:00)
[2018-06-20] MEDS: CLARITHROMYCIN 500 MG TAB PO ×2 (09:16→21:00)
[2018-06-20] MEDS: BISACODYL (EC) 5 MG TAB PO ×3 (09:16→21:01)
[2018-06-20] MEDS: LUBIPROSTONE 24 MCG CAP PO ×2 (09:16→21:00)
[2018-06-20] MEDS: FAMOTIDINE 20 MG TAB PO ×2 (09:16→21:00)
[2018-06-20] MEDS: FOLIC ACID 1 MG TAB PO (09:16)
[2018-06-20] MEDS: ENOXAPARIN 30 MG/0.3 ML SYG SC (09:17)
[2018-06-20] MEDS: HYDROXYUREA 500 MG CAP PO ×2 (09:17→21:04)
[2018-06-20] MEDS: DEFERASIROX 360 MG PO ×2 (09:18→21:01)
[2018-06-20] MEDS: POLYETHYLENE GLYCOL 17 GM PACKET PO ×2 (09:18→21:00)
[2018-06-20] MEDS: METHYLNALTREXONE 12 MG/0.6 ML VIAL SC (21:00)
[2018-06-20] MEDS: LACTULOSE 30ML CUP PO (21:34)
[2018-06-20] MEDS: ONDANSETRON 4 MG INJ IV (22:56)
[2018-06-21] MEDS: morphine 4 MG/ML VIAL IV ×6 (03:02→23:48)
[2018-06-21] MEDS: DIPHENHYDRAMINE 50 MG INJ IV ×6 (03:02→23:48)
[2018-06-21] MEDS: MEROPENEM 1 GM/50ML(PMX) 50 ML IVPB ×3 (05:57→22:27)
[2018-06-21] MEDS: FUROSEMIDE 20 MG TAB PO (05:58)
[2018-06-21] MEDS: LACTULOSE 30ML CUP PO ×2 (07:50→21:40)
[2018-06-21] MEDS: CLARITHROMYCIN 500 MG TAB PO ×2 (07:50→21:13)
[2018-06-21] MEDS: POLYETHYLENE GLYCOL 17 GM PACKET PO ×2 (07:50→21:17)
[2018-06-21] MEDS: DOXYCYCLINE 100 MG TAB PO ×2 (07:50→21:13)
[2018-06-21] MEDS: FOLIC ACID 1 MG TAB PO (07:50)
[2018-06-21] MEDS: LUBIPROSTONE 24 MCG CAP PO ×2 (07:50→21:13)
[2018-06-21] MEDS: FAMOTIDINE 20 MG TAB PO ×2 (07:50→21:16)
[2018-06-21] MEDS: BISACODYL (EC) 5 MG TAB PO ×3 (07:50→21:16)
[2018-06-21] MEDS: HYDROXYUREA 500 MG CAP PO ×2 (07:51→21:15)
[2018-06-21] MEDS: DEFERASIROX 360 MG PO ×2 (07:52→21:17)
[2018-06-21] MEDS: ENOXAPARIN 30 MG/0.3 ML SYG SC (07:52)
[2018-06-21 09:47] LABS: ADD MAN DIFF? NO
[2018-06-21 09:49] LABS: WHITE BLOOD COUNT 10.7 10^3/ul (4.8-10.8)
[2018-06-21 09:49] LABS: BASOPHIL # 0.1 10^3/ul (0.0-0.1); BASOPHILS % 1.2 % (0.0-2.0); EOSINOPHILS # 0.7 10^3/ul (0.0-0.5); EOSINOPHILS % 6.1 % (0.0-7.0); HEMATOCRIT 24.4 % (37.0-47.0); HEMOGLOBIN 7.9 g/dl (12.0-16.0); LYMPHOCYTES % 37.8 % (15.0-51.0); MEAN CORPUSCULAR HEMOGLOBIN 28.2 pg (29.0-33.0); MEAN CORPUSCULAR HGB CONC 32.4 g/dl (32.0-37.0); MEAN CORPUSCULAR VOLUME 87.1 fl (82.0-101.0); MEAN PLATELET VOLUME 10.7 fl (7.4-10.4); MONOCYTE # 1.2 10^3/ul (0.3-0.9); NEUTROPHIL # 4.6 10^3/ul (1.6-7.5); NEUTROPHILS % 43.2 % (39.0-77.0); NUCLEATED RED BLOOD CELLS% 0.4 /100WBC (0.0-0.0); PLATELET COUNT 294 10^3/UL (140-415); RED CELL DISTRIBUTION WIDTH 17.1 % (11.5-14.5)
[2018-06-21 10:23] LABS: ANION GAP 9 (5-13); BLOOD UREA NITROGEN 14 mg/dl (7-20); CALCIUM 9.2 mg/dl (8.4-10.2); CARBON DIOXIDE 29 mmol/L (21-31); CHLORIDE 101 mmol/L (97-110); CREATININE 0.74 mg/dl (0.44-1.00); Estimated GFR > 60 mL/min (>60); GLUCOSE 100 mg/dl (70-220); POTASSIUM 4.9 mmol/L (3.5-5.1); SODIUM 139 mmol/L (135-144)
[2018-06-21] MEDS: TRIMETHOPRIM/SULFAMETHOXAZOLE 20 ML in DEXTROSE 5% 500 ML IVPB ×2 (18:25→22:00)
[2018-06-21] MEDS: ONDANSETRON 4 MG INJ IV (19:50)
[2018-06-21] MEDS: METHYLNALTREXONE 12 MG/0.6 ML VIAL SC (21:16)
[2018-06-22] MEDS: DIPHENHYDRAMINE 50 MG INJ IV ×5 (05:00→22:56)
[2018-06-22] MEDS: TRIMETHOPRIM/SULFAMETHOXAZOLE 20 ML in DEXTROSE 5% 500 ML IVPB ×3 (05:00→22:56)
[2018-06-22] MEDS: morphine 4 MG/ML VIAL IV ×5 (05:00→22:56)
[2018-06-22] MEDS: FUROSEMIDE 20 MG TAB PO (05:09)
[2018-06-22] MEDS: MEROPENEM 1 GM/50ML(PMX) 50 ML IVPB (06:44)
[2018-06-22] MEDS: FOLIC ACID 1 MG TAB PO (10:34)
[2018-06-22] MEDS: DOXYCYCLINE 100 MG TAB PO ×2 (10:34→21:22)
[2018-06-22] MEDS: LACTULOSE 30ML CUP PO ×2 (10:34→21:24)
[2018-06-22] MEDS: CLARITHROMYCIN 500 MG TAB PO ×2 (10:34→21:22)
[2018-06-22] MEDS: LUBIPROSTONE 24 MCG CAP PO ×2 (10:34→21:22)
[2018-06-22] MEDS: FAMOTIDINE 20 MG TAB PO ×2 (10:34→21:22)
[2018-06-22] MEDS: BISACODYL (EC) 5 MG TAB PO ×3 (10:35→21:28)
[2018-06-22] MEDS: HYDROXYUREA 500 MG CAP PO ×2 (10:35→21:20)
[2018-06-22] MEDS: ENOXAPARIN 30 MG/0.3 ML SYG SC (10:36)
[2018-06-22] MEDS: DEFERASIROX 360 MG PO ×2 (10:37→21:23)
[2018-06-22] MEDS: POLYETHYLENE GLYCOL 17 GM PACKET PO ×2 (10:38→21:22)
[2018-06-22 12:55] LABS: ADD MAN DIFF? NO
[2018-06-22 12:57] LABS: ABNORMAL IP MESSAGE 1; BASOPHIL # 0.2 10^3/ul (0.0-0.1); BASOPHILS % 1.6 % (0.0-2.0); EOSINOPHILS # 0.9 10^3/ul (0.0-0.5); EOSINOPHILS % 8.1 % (0.0-7.0); HEMATOCRIT 24.1 % (37.0-47.0); LYMPHOCYTES # 5.3 10^3/ul (0.8-2.9); LYMPHOCYTES % 46.5 % (15.0-51.0); MEAN CORPUSCULAR HEMOGLOBIN 28.9 pg (29.0-33.0); MEAN CORPUSCULAR HGB CONC 33.2 g/dl (32.0-37.0); MEAN PLATELET VOLUME 10.6 fl (7.4-10.4); MONOCYTE # 1.2 10^3/ul (0.3-0.9); MONOCYTES % 10.2 % (0.0-11.0); NEUTROPHIL # 3.8 10^3/ul (1.6-7.5); NEUTROPHILS % 33.3 % (39.0-77.0); NUCLEATED RED BLOOD CELLS # 0.1 10^3/ul (0.0-0.0); NUCLEATED RED BLOOD CELLS% 0.4 /100WBC (0.0-0.0); PLATELET COUNT 310 10^3/UL (140-415); RED BLOOD COUNT 2.77 10^6/ul (4.20-5.40); RED CELL DISTRIBUTION WIDTH 17.2 % (11.5-14.5)
[2018-06-22 12:57] LABS: WHITE BLOOD COUNT 11.5 10^3/ul (4.8-10.8)
[2018-06-22 13:19] LABS: POSITIVE DIFF @See below
[2018-06-22 13:30] LABS: ANION GAP 9 (5-13); BLOOD UREA NITROGEN 12 mg/dl (7-20); CALCIUM 9.2 mg/dl (8.4-10.2); CARBON DIOXIDE 29 mmol/L (21-31); CHLORIDE 100 mmol/L (97-110); CREATININE 0.87 mg/dl (0.44-1.00); Estimated GFR > 60 mL/min (>60); GLUCOSE 112 mg/dl (70-220); POTASSIUM 4.9 mmol/L (3.5-5.1); SODIUM 138 mmol/L (135-144)
[2018-06-22] MEDS: ONDANSETRON 4 MG INJ IV (15:08)
[2018-06-22] MEDS: METHYLNALTREXONE 12 MG/0.6 ML VIAL SC (21:24)
[2018-06-23] MEDS: DIPHENHYDRAMINE 50 MG INJ IV ×5 (03:33→21:04)
[2018-06-23] MEDS: morphine 4 MG/ML VIAL IV ×5 (03:34→21:05)
[2018-06-23] MEDS: FUROSEMIDE 20 MG TAB PO (06:39)
[2018-06-23] MEDS: TRIMETHOPRIM/SULFAMETHOXAZOLE 20 ML in DEXTROSE 5% 500 ML IVPB ×3 (06:40→23:04)
[2018-06-23] MEDS: POLYETHYLENE GLYCOL 17 GM PACKET PO ×2 (09:00→21:00)
[2018-06-23] MEDS: LACTULOSE 30ML CUP PO ×3 (09:00→21:02)
[2018-06-23 09:58] LABS: ADD MAN DIFF? NO
[2018-06-23 10:04] LABS: WHITE BLOOD COUNT 14.7 10^3/ul (4.8-10.8)
[2018-06-23 10:04] LABS: ABNORMAL IP MESSAGE 1; BASOPHIL # 0.2 10^3/ul (0.0-0.1); BASOPHILS % 1.2 % (0.0-2.0); EOSINOPHILS # 0.9 10^3/ul (0.0-0.5); EOSINOPHILS % 5.9 % (0.0-7.0); HEMATOCRIT 22.2 % (37.0-47.0); HEMOGLOBIN 7.3 g/dl (12.0-16.0); LYMPHOCYTES # 5.9 10^3/ul (0.8-2.9); LYMPHOCYTES % 40.1 % (15.0-51.0); MEAN CORPUSCULAR HEMOGLOBIN 28.3 pg (29.0-33.0); MEAN CORPUSCULAR HGB CONC 32.9 g/dl (32.0-37.0); MEAN PLATELET VOLUME 10.7 fl (7.4-10.4); MONOCYTE # 1.8 10^3/ul (0.3-0.9); MONOCYTES % 12.1 % (0.0-11.0); NEUTROPHIL # 5.9 10^3/ul (1.6-7.5); NEUTROPHILS % 40.2 % (39.0-77.0); NUCLEATED RED BLOOD CELLS # 0.1 10^3/ul (0.0-0.0); NUCLEATED RED BLOOD CELLS% 0.3 /100WBC (0.0-0.0); PLATELET COUNT 292 10^3/UL (140-415); RED BLOOD COUNT 2.58 10^6/ul (4.20-5.40); RED CELL DISTRIBUTION WIDTH 17.2 % (11.5-14.5)
[2018-06-23 10:07] LABS: POSITIVE DIFF @See below
[2018-06-23 10:22] LABS: ANION GAP 11 (5-13); BLOOD UREA NITROGEN 12 mg/dl (7-20); CALCIUM 8.7 mg/dl (8.4-10.2); CARBON DIOXIDE 27 mmol/L (21-31); CHLORIDE 97 mmol/L (97-110); CREATININE 0.91 mg/dl (0.44-1.00); Estimated GFR > 60 mL/min (>60); GLUCOSE 247 mg/dl (70-220); POTASSIUM 4.2 mmol/L (3.5-5.1); SODIUM 135 mmol/L (135-144)
[2018-06-23] MEDS: DEFERASIROX 360 MG PO ×2 (12:44→21:02)
[2018-06-23] MEDS: CLARITHROMYCIN 500 MG TAB PO ×2 (12:45→21:04)
[2018-06-23] MEDS: FOLIC ACID 1 MG TAB PO (12:45)
[2018-06-23] MEDS: ENOXAPARIN 30 MG/0.3 ML SYG SC (12:46)
[2018-06-23] MEDS: HYDROXYUREA 500 MG CAP PO ×2 (12:46→21:18)
[2018-06-23] MEDS: FAMOTIDINE 20 MG TAB PO ×2 (12:47→21:03)
[2018-06-23] MEDS: DOXYCYCLINE 100 MG TAB PO ×2 (12:47→21:03)
[2018-06-23] MEDS: LUBIPROSTONE 24 MCG CAP PO ×2 (12:47→21:04)
[2018-06-23] MEDS: BISACODYL (EC) 5 MG TAB PO ×3 (12:47→21:03)
[2018-06-23] MEDS: METHYLNALTREXONE 12 MG/0.6 ML VIAL SC (21:04)
[2018-06-23] MEDS: ONDANSETRON 4 MG INJ IV (21:05)
[2018-06-24] MEDS: DIPHENHYDRAMINE 50 MG INJ IV ×6 (01:04→22:40)
[2018-06-24] MEDS: morphine 4 MG/ML VIAL IV ×6 (01:05→20:58)
[2018-06-24] MEDS: TRIMETHOPRIM/SULFAMETHOXAZOLE 20 ML in DEXTROSE 5% 500 ML IVPB ×3 (05:05→23:27)
[2018-06-24] MEDS: FUROSEMIDE 20 MG TAB PO (05:07)
[2018-06-24] MEDS: ONDANSETRON 4 MG INJ IV ×3 (05:09→20:56)
[2018-06-24] MEDS: LACTULOSE 30ML CUP PO ×2 (09:00→20:52)
[2018-06-24] MEDS: POLYETHYLENE GLYCOL 17 GM PACKET PO ×2 (09:00→20:54)
[2018-06-24] MEDS: BISACODYL (EC) 5 MG TAB PO ×3 (09:13→20:54)
[2018-06-24] MEDS: DOXYCYCLINE 100 MG TAB PO ×2 (09:13→20:54)
[2018-06-24] MEDS: CLARITHROMYCIN 500 MG TAB PO ×2 (09:13→20:53)
[2018-06-24] MEDS: FAMOTIDINE 20 MG TAB PO ×2 (09:14→20:53)
[2018-06-24] MEDS: LUBIPROSTONE 24 MCG CAP PO ×2 (09:14→20:54)
[2018-06-24] MEDS: FOLIC ACID 1 MG TAB PO (09:14)
[2018-06-24] MEDS: DEFERASIROX 360 MG PO ×2 (09:15→20:52)
[2018-06-24] MEDS: HYDROXYUREA 500 MG CAP PO ×2 (09:23→20:57)
[2018-06-24] MEDS: ENOXAPARIN 30 MG/0.3 ML SYG SC (09:24)
[2018-06-24 09:33] LABS: ADD MAN DIFF? NO
[2018-06-24 09:45] LABS: WHITE BLOOD COUNT 16.5 10^3/ul (4.8-10.8)
[2018-06-24 09:45] LABS: ABNORMAL IP MESSAGE 1; BASOPHIL # 0.2 10^3/ul (0.0-0.1); EOSINOPHILS # 0.7 10^3/ul (0.0-0.5); EOSINOPHILS % 4.1 % (0.0-7.0); HEMATOCRIT 22.3 % (37.0-47.0); HEMOGLOBIN 7.5 g/dl (12.0-16.0); LYMPHOCYTES # 5.7 10^3/ul (0.8-2.9); LYMPHOCYTES % 34.7 % (15.0-51.0); MEAN CORPUSCULAR HEMOGLOBIN 28.7 pg (29.0-33.0); MEAN CORPUSCULAR HGB CONC 33.6 g/dl (32.0-37.0); MEAN CORPUSCULAR VOLUME 85.4 fl (82.0-101.0); MEAN PLATELET VOLUME 10.7 fl (7.4-10.4); MONOCYTE # 1.8 10^3/ul (0.3-0.9); MONOCYTES % 10.7 % (0.0-11.0); NEUTROPHIL # 8.1 10^3/ul (1.6-7.5); NUCLEATED RED BLOOD CELLS # 0.1 10^3/ul (0.0-0.0); NUCLEATED RED BLOOD CELLS% 0.3 /100WBC (0.0-0.0); PLATELET COUNT 315 10^3/UL (140-415); RED BLOOD COUNT 2.61 10^6/ul (4.20-5.40)
[2018-06-24 09:51] LABS: POSITIVE DIFF @See below
[2018-06-24 10:03] LABS: ANION GAP 10 (5-13); BLOOD UREA NITROGEN 10 mg/dl (7-20); CALCIUM 9.2 mg/dl (8.4-10.2); CARBON DIOXIDE 28 mmol/L (21-31); CHLORIDE 100 mmol/L (97-110); CREATININE 0.93 mg/dl (0.44-1.00); Estimated GFR > 60 mL/min (>60); GLUCOSE 95 mg/dl (70-220); POTASSIUM 4.4 mmol/L (3.5-5.1); SODIUM 138 mmol/L (135-144)
[2018-06-24 12:39] LABS: LACTIC ACID 1.8 mmol/L (0.5-2.0)
[2018-06-24] MEDS: MEROPENEM 1 GM/50ML(PMX) 50 ML IVPB ×2 (15:02→22:40)
[2018-06-24] MEDS: METHYLNALTREXONE 12 MG/0.6 ML VIAL SC (20:54)
[2018-06-25] MEDS: morphine 4 MG/ML VIAL IV ×6 (01:02→21:49)
[2018-06-25] MEDS: DIPHENHYDRAMINE 50 MG INJ IV ×5 (05:09→21:49)
[2018-06-25] MEDS: FUROSEMIDE 20 MG TAB PO (06:04)
[2018-06-25] MEDS: MEROPENEM 1 GM/50ML(PMX) 50 ML IVPB ×3 (06:07→22:02)
[2018-06-25] MEDS: TRIMETHOPRIM/SULFAMETHOXAZOLE 20 ML in DEXTROSE 5% 500 ML IVPB ×3 (06:43→23:04)
[2018-06-25 07:36] LABS: ADD UMIC NO; UR ASCORBIC ACID NEGATIVE (NEGATIVE); UR BACTERIA FEW /HPF (NONE SEEN); UR BILIRUBIN (Dip) NEGATIVE (NEGATIVE); UR BLOOD (Dip) NEGATIVE (NEGATIVE); UR CALCIUM OXALATE CRYSTAL FEW /HPF (NONE SEEN); UR CLARITY SLIGHTLY CLOUDY (CLEAR); UR COLOR AMBER (YELLOW); UR GLUCOSE (Dip) NEGATIVE (NEGATIVE); UR KETONES (Dip) NEGATIVE (NEGATIVE); UR LEUKOCYTE ESTERASE (Dip) NEGATIVE Leu/ul (NEGATIVE); UR NITRITE (Dip) NEGATIVE (NEGATIVE); UR RBC 8 /HPF (0-5); UR SPECIFIC GRAVITY (Dip) 1.017 (1.003-1.030); UR SQUAMOUS EPITHELIAL CELL FEW /HPF (FEW); UR TOTAL PROTEIN (Dip) NEGATIVE (NEGATIVE); UR UROBILINOGEN (Dip) 2+ mg/dL (NEGATIVE); UR WBC 0 /HPF (0-5)
[2018-06-25] MEDS: ENOXAPARIN 30 MG/0.3 ML SYG SC (09:25)
[2018-06-25] MEDS: LUBIPROSTONE 24 MCG CAP PO ×2 (09:26→21:56)
[2018-06-25] MEDS: HYDROXYUREA 500 MG CAP PO ×2 (09:26→22:00)
[2018-06-25] MEDS: CLARITHROMYCIN 500 MG TAB PO ×2 (09:27→21:56)
[2018-06-25] MEDS: DOXYCYCLINE 100 MG TAB PO ×2 (09:27→21:56)
[2018-06-25] MEDS: POLYETHYLENE GLYCOL 17 GM PACKET PO ×2 (09:27→21:57)
[2018-06-25] MEDS: LACTULOSE 30ML CUP PO ×2 (09:27→21:57)
[2018-06-25] MEDS: BISACODYL (EC) 5 MG TAB PO ×3 (09:29→21:56)
[2018-06-25] MEDS: FOLIC ACID 1 MG TAB PO (09:29)
[2018-06-25] MEDS: DEFERASIROX 360 MG PO ×2 (09:29→23:10)
[2018-06-25] MEDS: FAMOTIDINE 20 MG TAB PO ×2 (09:38→21:56)
[2018-06-25 10:35] LABS: ADD MAN DIFF? NO
[2018-06-25 10:40] LABS: WHITE BLOOD COUNT 16.4 10^3/ul (4.8-10.8)
[2018-06-25 10:40] LABS: ABNORMAL IP MESSAGE 1; BASOPHIL # 0.2 10^3/ul (0.0-0.1); EOSINOPHILS # 0.9 10^3/ul (0.0-0.5); EOSINOPHILS % 5.3 % (0.0-7.0); HEMATOCRIT 22.5 % (37.0-47.0); HEMOGLOBIN 7.5 g/dl (12.0-16.0); LYMPHOCYTES # 5.8 10^3/ul (0.8-2.9); LYMPHOCYTES % 35.5 % (15.0-51.0); MEAN CORPUSCULAR HEMOGLOBIN 28.4 pg (29.0-33.0); MEAN CORPUSCULAR HGB CONC 33.3 g/dl (32.0-37.0); MEAN CORPUSCULAR VOLUME 85.2 fl (82.0-101.0); MEAN PLATELET VOLUME 10.8 fl (7.4-10.4); MONOCYTE # 1.9 10^3/ul (0.3-0.9); MONOCYTES % 11.4 % (0.0-11.0); NEUTROPHIL # 7.6 10^3/ul (1.6-7.5); NEUTROPHILS % 46.3 % (39.0-77.0); NUCLEATED RED BLOOD CELLS% 0.2 /100WBC (0.0-0.0); PLATELET COUNT 316 10^3/UL (140-415); RED BLOOD COUNT 2.64 10^6/ul (4.20-5.40); RED CELL DISTRIBUTION WIDTH 17.2 % (11.5-14.5)
[2018-06-25 10:41] LABS: POSITIVE DIFF @See below
[2018-06-25 11:10] LABS: ANION GAP 12 (5-13); BLOOD UREA NITROGEN 12 mg/dl (7-20); CALCIUM 9.1 mg/dl (8.4-10.2); CARBON DIOXIDE 26 mmol/L (21-31); CHLORIDE 100 mmol/L (97-110); CREATININE 1.17 mg/dl (0.44-1.00); Estimated GFR 55 mL/min (>60); GLUCOSE 100 mg/dl (70-220); POTASSIUM 4.3 mmol/L (3.5-5.1); SODIUM 138 mmol/L (135-144)
[2018-06-25] MEDS: ONDANSETRON 4 MG INJ IV (17:58)
[2018-06-25] MEDS: METHYLNALTREXONE 12 MG/0.6 ML VIAL SC (21:56)
[2018-06-26] MEDS: DIPHENHYDRAMINE 50 MG INJ IV ×6 (01:54→22:04)
[2018-06-26] MEDS: morphine 4 MG/ML VIAL IV ×6 (01:54→22:04)
[2018-06-26] MEDS: FUROSEMIDE 20 MG TAB PO (06:01)
[2018-06-26] MEDS: MEROPENEM 1 GM/50ML(PMX) 50 ML IVPB ×3 (06:01→20:46)
[2018-06-26] MEDS: TRIMETHOPRIM/SULFAMETHOXAZOLE 20 ML in DEXTROSE 5% 500 ML IVPB ×3 (06:49→22:04)
[2018-06-26] MEDS: POLYETHYLENE GLYCOL 17 GM PACKET PO ×2 (10:01→20:47)
[2018-06-26] MEDS: CLARITHROMYCIN 500 MG TAB PO ×2 (10:01→20:47)
[2018-06-26] MEDS: LACTULOSE 30ML CUP PO ×2 (10:01→20:47)
[2018-06-26] MEDS: DOXYCYCLINE 100 MG TAB PO ×2 (10:02→20:47)
[2018-06-26] MEDS: LUBIPROSTONE 24 MCG CAP PO ×2 (10:02→20:48)
[2018-06-26] MEDS: BISACODYL (EC) 5 MG TAB PO ×3 (10:02→20:47)
[2018-06-26] MEDS: FAMOTIDINE 20 MG TAB PO ×2 (10:02→20:47)
[2018-06-26] MEDS: FOLIC ACID 1 MG TAB PO (10:02)
[2018-06-26] MEDS: ENOXAPARIN 30 MG/0.3 ML SYG SC (10:09)
[2018-06-26] MEDS: HYDROXYUREA 500 MG CAP PO ×2 (10:09→20:50)
[2018-06-26] MEDS: DEFERASIROX 360 MG PO ×2 (10:15→20:56)
[2018-06-26 11:13] LABS: WHITE BLOOD COUNT 11.6 10^3/ul (4.8-10.8)
[2018-06-26 11:13] LABS: ABNORMAL IP MESSAGE 1; HEMATOCRIT 20.7 % (37.0-47.0); MEAN CORPUSCULAR HEMOGLOBIN 27.9 pg (29.0-33.0); MEAN CORPUSCULAR HGB CONC 33.3 g/dl (32.0-37.0); MEAN CORPUSCULAR VOLUME 83.8 fl (82.0-101.0); MEAN PLATELET VOLUME 10.6 fl (7.4-10.4); NUCLEATED RED BLOOD CELLS% 0.3 /100WBC (0.0-0.0); PLATELET COUNT 325 10^3/UL (140-415); RED BLOOD COUNT 2.47 10^6/ul (4.20-5.40); RED CELL DISTRIBUTION WIDTH 16.7 % (11.5-14.5)
[2018-06-26 11:21] LABS: ADD MAN DIFF? YES; HEMOGLOBIN 6.9 g/dl (12.0-16.0); POSITIVE DIFF @See below
[2018-06-26 11:45] LABS: ANION GAP 11 (5-13); BLOOD UREA NITROGEN 15 mg/dl (7-20); CALCIUM 9.4 mg/dl (8.4-10.2); CARBON DIOXIDE 24 mmol/L (21-31); CHLORIDE 102 mmol/L (97-110); CREATININE 1.16 mg/dl (0.44-1.00); Estimated GFR 55 mL/min (>60); GLUCOSE 99 mg/dl (70-220); SODIUM 137 mmol/L (135-144)
[2018-06-26 12:04] LABS: ANISOCYTOSIS 1+ (0-0); EOSINOPHILS % (M) 11 % (0-7); ERYTHROBLAST% (NRBC) (M) 3 % (0-0); HYPOCHROMASIA 2+ (0-0); LYMPHOCYTES #M 3.8 10^3/ul (0.8-2.9); LYMPHOCYTES % (M) 33 % (15-51); MICROCYTOSIS 1+ (0-0); MONOCYTE #M 1.5 10^3/ul (0.3-0.9); MONOCYTES % (M) 13 % (0-11); PLATELET ESTIMATE NORMAL; POLYCHROMASIA 1+ (0-0); SEGMENTED NEUTROPHILS (M) % 43 % (39-77); SMUDGE%M 13 % (0-0); TARGET CELLS 1+ (0-0)
[2018-06-26] MEDS: ONDANSETRON 4 MG INJ IV (13:59)
[2018-06-26] MEDS: METHYLNALTREXONE 12 MG/0.6 ML VIAL SC (20:47)
[2018-06-27] MEDS: ACETAMINOPHEN 325 MG TAB PO (01:07)
[2018-06-27 01:30] LABS: IMMEDIATE SPIN CROSSMATCH 1 1
[2018-06-27] MEDS: ONDANSETRON 4 MG INJ IV (01:45)
[2018-06-27] MEDS: DIPHENHYDRAMINE 50 MG INJ IV ×6 (02:10→23:17)
[2018-06-27] MEDS: morphine 4 MG/ML VIAL IV ×6 (02:12→23:17)
[2018-06-27] MEDS: MEROPENEM 1 GM/50ML(PMX) 50 ML IVPB ×2 (06:21→13:30)
[2018-06-27] MEDS: TRIMETHOPRIM/SULFAMETHOXAZOLE 20 ML in DEXTROSE 5% 500 ML IVPB ×2 (07:03→14:32)
[2018-06-27] MEDS: FUROSEMIDE 20 MG TAB PO (09:53)
[2018-06-27] MEDS: POLYETHYLENE GLYCOL 17 GM PACKET PO ×3 (09:54→23:26)
[2018-06-27] MEDS: LACTULOSE 30ML CUP PO ×2 (09:54→23:16)
[2018-06-27] MEDS: BISACODYL (EC) 5 MG TAB PO ×3 (09:55→23:15)
[2018-06-27] MEDS: DOXYCYCLINE 100 MG TAB PO ×2 (09:55→23:16)
[2018-06-27] MEDS: CLARITHROMYCIN 500 MG TAB PO ×2 (09:55→23:15)
[2018-06-27] MEDS: FAMOTIDINE 20 MG TAB PO ×2 (09:55→23:16)
[2018-06-27] MEDS: LUBIPROSTONE 24 MCG CAP PO ×2 (09:55→23:15)
[2018-06-27] MEDS: FOLIC ACID 1 MG TAB PO (09:55)
[2018-06-27] MEDS: DEFERASIROX 360 MG PO ×2 (09:56→23:16)
[2018-06-27] MEDS: HYDROXYUREA 500 MG CAP PO ×2 (09:58→23:14)
[2018-06-27] MEDS: ENOXAPARIN 30 MG/0.3 ML SYG SC (09:58)
[2018-06-27 11:01] LABS: ADD MAN DIFF? NO
[2018-06-27 11:04] LABS: ABNORMAL IP MESSAGE 1; BASOPHIL # 0.2 10^3/ul (0.0-0.1); BASOPHILS % 1.1 % (0.0-2.0); EOSINOPHILS # 0.9 10^3/ul (0.0-0.5); EOSINOPHILS % 5.7 % (0.0-7.0); HEMATOCRIT 23.3 % (37.0-47.0); HEMOGLOBIN 7.9 g/dl (12.0-16.0); LYMPHOCYTES # 4.9 10^3/ul (0.8-2.9); LYMPHOCYTES % 32.6 % (15.0-51.0); MEAN CORPUSCULAR HEMOGLOBIN 29.4 pg (29.0-33.0); MEAN CORPUSCULAR HGB CONC 33.9 g/dl (32.0-37.0); MEAN CORPUSCULAR VOLUME 86.6 fl (82.0-101.0); MEAN PLATELET VOLUME 10.4 fl (7.4-10.4); MONOCYTE # 1.7 10^3/ul (0.3-0.9); MONOCYTES % 11.3 % (0.0-11.0); NEUTROPHIL # 7.3 10^3/ul (1.6-7.5); NEUTROPHILS % 48.7 % (39.0-77.0); NUCLEATED RED BLOOD CELLS% 0.2 /100WBC (0.0-0.0); PLATELET COUNT 327 10^3/UL (140-415); RED BLOOD COUNT 2.69 10^6/ul (4.20-5.40); RED CELL DISTRIBUTION WIDTH 17.4 % (11.5-14.5)
[2018-06-27 11:07] LABS: POSITIVE DIFF @See below
[2018-06-27 11:27] LABS: ANION GAP 11 (5-13); BLOOD UREA NITROGEN 16 mg/dl (7-20); CALCIUM 9.3 mg/dl (8.4-10.2); CARBON DIOXIDE 23 mmol/L (21-31); CHLORIDE 104 mmol/L (97-110); CREATININE 1.19 mg/dl (0.44-1.00); Estimated GFR 54 mL/min (>60); GLUCOSE 96 mg/dl (70-220); POTASSIUM 4.8 mmol/L (3.5-5.1); SODIUM 138 mmol/L (135-144)
[2018-06-27 12:47] LABS: ANISOCYTOSIS 1+ (0-0); BASOPHIL #M 1.3 10^3/ul (0.0-0.0); BASOPHILS % (M) 9 % (0-2); EOSINOPHILS % (M) 4 % (0-7); ERYTHROBLAST% (NRBC) (M) 1 % (0-0); HYPOCHROMASIA 1+ (0-0); LYMPHOCYTES #M 7.8 10^3/ul (0.8-2.9); LYMPHOCYTES % (M) 52 % (15-51); MONOCYTE #M 0.7 10^3/ul (0.3-0.9); MONOCYTES % (M) 5 % (0-11); PLATELET ESTIMATE NORMAL; POLYCHROMASIA 1+ (0-0); REACTIVE LYMPHOCYTES #M 0.1 10^3/ul (0.0-0.0); REACTIVE LYMPHOCYTES% (M) 1 % (0-0); SEGMENTED NEUTROPHILS (M) % 29 % (39-77); SICKLE CELL 1+ (0-0); SMUDGE%M 15 % (0-0); SPHEROCYTES 1+ (0-0); TARGET CELLS 1+ (0-0)
[2018-06-27] MEDS: METHYLNALTREXONE 12 MG/0.6 ML VIAL SC (23:14)
[2018-06-28] MEDS: DIPHENHYDRAMINE 50 MG INJ IV ×5 (03:22→21:47)
[2018-06-28] MEDS: morphine 4 MG/ML VIAL IV ×5 (03:23→21:47)
[2018-06-28] MEDS: FUROSEMIDE 20 MG TAB PO ×2 (06:00→09:57)
[2018-06-28] MEDS: POLYETHYLENE GLYCOL 17 GM PACKET PO ×2 (09:55→21:52)
[2018-06-28] MEDS: BISACODYL (EC) 5 MG TAB PO ×3 (09:56→21:53)
[2018-06-28] MEDS: CLARITHROMYCIN 500 MG TAB PO ×2 (09:56→21:52)
[2018-06-28] MEDS: LACTULOSE 30ML CUP PO ×2 (09:56→21:00)
[2018-06-28] MEDS: LUBIPROSTONE 24 MCG CAP PO ×2 (09:56→21:52)
[2018-06-28] MEDS: FAMOTIDINE 20 MG TAB PO ×2 (09:56→21:52)
[2018-06-28] MEDS: FOLIC ACID 1 MG TAB PO (09:56)
[2018-06-28] MEDS: DOXYCYCLINE 100 MG TAB PO ×2 (09:56→21:51)
[2018-06-28] MEDS: DEFERASIROX 360 MG PO ×2 (09:56→21:51)
[2018-06-28] MEDS: ENOXAPARIN 30 MG/0.3 ML SYG SC (09:59)
[2018-06-28] MEDS: HYDROXYUREA 500 MG CAP PO ×2 (09:59→22:00)
[2018-06-28 10:49] LABS: ADD MAN DIFF? NO
[2018-06-28 11:07] LABS: BASOPHIL # 0.1 10^3/ul (0.0-0.1); BASOPHILS % 1.1 % (0.0-2.0); EOSINOPHILS # 0.7 10^3/ul (0.0-0.5); EOSINOPHILS % 5.4 % (0.0-7.0); HEMATOCRIT 23.1 % (37.0-47.0); HEMOGLOBIN 7.7 g/dl (12.0-16.0); LYMPHOCYTES # 3.8 10^3/ul (0.8-2.9); LYMPHOCYTES % 29.3 % (15.0-51.0); MEAN CORPUSCULAR HEMOGLOBIN 28.9 pg (29.0-33.0); MEAN CORPUSCULAR HGB CONC 33.3 g/dl (32.0-37.0); MEAN CORPUSCULAR VOLUME 86.8 fl (82.0-101.0); MEAN PLATELET VOLUME 10.5 fl (7.4-10.4); MONOCYTE # 1.4 10^3/ul (0.3-0.9); MONOCYTES % 10.8 % (0.0-11.0); NEUTROPHIL # 6.9 10^3/ul (1.6-7.5); NEUTROPHILS % 52.9 % (39.0-77.0); NUCLEATED RED BLOOD CELLS% 0.2 /100WBC (0.0-0.0); PLATELET COUNT 343 10^3/UL (140-415); RED BLOOD COUNT 2.66 10^6/ul (4.20-5.40); RED CELL DISTRIBUTION WIDTH 17.8 % (11.5-14.5)
[2018-06-28 11:07] LABS: WHITE BLOOD COUNT 13.1 10^3/ul (4.8-10.8)
[2018-06-28 11:11] LABS: ANION GAP 8 (5-13); BLOOD UREA NITROGEN 15 mg/dl (7-20); CARBON DIOXIDE 24 mmol/L (21-31); CHLORIDE 106 mmol/L (97-110); CREATININE 0.97 mg/dl (0.44-1.00); Estimated GFR > 60 mL/min (>60); GLUCOSE 100 mg/dl (70-220); SODIUM 138 mmol/L (135-144)
[2018-06-28] MEDS: ONDANSETRON 4 MG INJ IV (16:20)
[2018-06-28] MEDS: METHYLNALTREXONE 12 MG/0.6 ML VIAL SC (21:52)
[2018-06-29] MEDS: DIPHENHYDRAMINE 50 MG INJ IV ×6 (01:51→22:54)
[2018-06-29] MEDS: ONDANSETRON 4 MG INJ IV ×2 (01:52→18:42)
[2018-06-29] MEDS: morphine 4 MG/ML VIAL IV ×6 (01:52→22:53)
[2018-06-29] MEDS: FUROSEMIDE 20 MG TAB PO (06:00)
[2018-06-29] MEDS: LACTULOSE 30ML CUP PO ×2 (10:32→21:00)
[2018-06-29] MEDS: POLYETHYLENE GLYCOL 17 GM PACKET PO ×2 (10:32→22:57)
[2018-06-29] MEDS: DEFERASIROX 360 MG PO ×2 (10:33→22:59)
[2018-06-29] MEDS: BISACODYL (EC) 5 MG TAB PO ×3 (10:34→22:57)
[2018-06-29] MEDS: FOLIC ACID 1 MG TAB PO (10:34)
[2018-06-29] MEDS: DOXYCYCLINE 100 MG TAB PO ×2 (10:34→22:57)
[2018-06-29] MEDS: DOCUSATE SODIUM 100 MG CAP PO (10:35)
[2018-06-29] MEDS: LUBIPROSTONE 24 MCG CAP PO ×2 (10:35→22:58)
[2018-06-29] MEDS: CLARITHROMYCIN 500 MG TAB PO ×2 (10:35→22:58)
[2018-06-29] MEDS: FAMOTIDINE 20 MG TAB PO ×2 (10:35→22:58)
[2018-06-29] MEDS: HYDROXYUREA 500 MG CAP PO ×2 (10:47→23:06)
[2018-06-29] MEDS: ENOXAPARIN 30 MG/0.3 ML SYG SC (10:48)
[2018-06-29] MEDS: METHYLNALTREXONE 12 MG/0.6 ML VIAL SC (22:58)
[2018-06-30] MEDS: morphine 4 MG/ML VIAL IV ×6 (03:01→22:34)
[2018-06-30] MEDS: DIPHENHYDRAMINE 50 MG INJ IV ×6 (03:01→22:34)
[2018-06-30] MEDS: ONDANSETRON 4 MG INJ IV ×2 (06:43→14:31)
[2018-06-30] MEDS: FUROSEMIDE 20 MG TAB PO (06:44)
[2018-06-30] MEDS: DOXYCYCLINE 100 MG TAB PO ×2 (09:45→22:34)
[2018-06-30] MEDS: BISACODYL (EC) 5 MG TAB PO ×3 (09:45→22:33)
[2018-06-30] MEDS: DEFERASIROX 360 MG PO ×2 (09:45→22:38)
[2018-06-30] MEDS: LUBIPROSTONE 24 MCG CAP PO ×2 (09:45→22:33)
[2018-06-30] MEDS: FOLIC ACID 1 MG TAB PO (09:45)
[2018-06-30] MEDS: LACTULOSE 30ML CUP PO ×2 (09:45→21:00)
[2018-06-30] MEDS: FAMOTIDINE 20 MG TAB PO ×2 (09:45→22:37)
[2018-06-30] MEDS: POLYETHYLENE GLYCOL 17 GM PACKET PO ×2 (09:45→22:33)
[2018-06-30] MEDS: CLARITHROMYCIN 500 MG TAB PO ×2 (09:45→22:33)
[2018-06-30] MEDS: HYDROXYUREA 500 MG CAP PO ×2 (09:50→22:45)
[2018-06-30] MEDS: ENOXAPARIN 30 MG/0.3 ML SYG SC (09:51)
[2018-06-30 10:47] LABS: ADD MAN DIFF? NO
[2018-06-30 10:50] LABS: ABNORMAL IP MESSAGE 1; BASOPHIL # 0.1 10^3/ul (0.0-0.1); BASOPHILS % 0.8 % (0.0-2.0); EOSINOPHILS # 0.9 10^3/ul (0.0-0.5); EOSINOPHILS % 5.2 % (0.0-7.0); HEMATOCRIT 23.1 % (37.0-47.0); HEMOGLOBIN 7.8 g/dl (12.0-16.0); LYMPHOCYTES # 5.7 10^3/ul (0.8-2.9); LYMPHOCYTES % 33.3 % (15.0-51.0); MEAN CORPUSCULAR HGB CONC 33.8 g/dl (32.0-37.0); MEAN CORPUSCULAR VOLUME 88.8 fl (82.0-101.0); MEAN PLATELET VOLUME 10.2 fl (7.4-10.4); MONOCYTE # 1.5 10^3/ul (0.3-0.9); MONOCYTES % 8.5 % (0.0-11.0); NEUTROPHIL # 8.9 10^3/ul (1.6-7.5); NEUTROPHILS % 51.8 % (39.0-77.0); NUCLEATED RED BLOOD CELLS% 0.2 /100WBC (0.0-0.0); PLATELET COUNT 328 10^3/UL (140-415); RED CELL DISTRIBUTION WIDTH 18.6 % (11.5-14.5)
[2018-06-30 10:50] LABS: WHITE BLOOD COUNT 17.2 10^3/ul (4.8-10.8)
[2018-06-30 10:55] LABS: POSITIVE DIFF @See below
[2018-06-30 11:09] LABS: ANION GAP 8 (5-13); BLOOD UREA NITROGEN 15 mg/dl (7-20); CARBON DIOXIDE 25 mmol/L (21-31); CHLORIDE 106 mmol/L (97-110); CREATININE 0.81 mg/dl (0.44-1.00); Estimated GFR > 60 mL/min (>60); GLUCOSE 98 mg/dl (70-220); POTASSIUM 4.5 mmol/L (3.5-5.1); SODIUM 139 mmol/L (135-144)
[2018-06-30] MEDS: METHYLNALTREXONE 12 MG/0.6 ML VIAL SC (22:37)
[2018-07-01] MEDS: ONDANSETRON 4 MG INJ IV ×3 (01:45→21:29)
[2018-07-01] MEDS: morphine 4 MG/ML VIAL IV ×6 (02:37→21:30)
[2018-07-01] MEDS: DIPHENHYDRAMINE 50 MG INJ IV ×6 (02:37→21:29)
[2018-07-01] MEDS: ZOLPIDEM 5 MG TAB PO (02:46)
[2018-07-01] MEDS: FUROSEMIDE 20 MG TAB PO (06:39)
[2018-07-01] MEDS: FOLIC ACID 1 MG TAB PO (09:03)
[2018-07-01] MEDS: DEFERASIROX 360 MG PO ×2 (09:03→21:28)
[2018-07-01] MEDS: LUBIPROSTONE 24 MCG CAP PO ×2 (09:03→21:29)
[2018-07-01] MEDS: DOXYCYCLINE 100 MG TAB PO ×2 (09:03→21:28)
[2018-07-01] MEDS: LACTULOSE 30ML CUP PO ×2 (09:03→21:28)
[2018-07-01] MEDS: FAMOTIDINE 20 MG TAB PO ×2 (09:03→21:29)
[2018-07-01] MEDS: POLYETHYLENE GLYCOL 17 GM PACKET PO ×2 (09:03→21:28)
[2018-07-01] MEDS: CLARITHROMYCIN 500 MG TAB PO ×2 (09:03→21:29)
[2018-07-01] MEDS: BISACODYL (EC) 5 MG TAB PO ×3 (09:03→21:28)
[2018-07-01] MEDS: HYDROXYUREA 500 MG CAP PO ×2 (09:06→21:41)
[2018-07-01] MEDS: ENOXAPARIN 30 MG/0.3 ML SYG SC (09:07)
[2018-07-01 11:14] LABS: ADD MAN DIFF? NO
[2018-07-01 11:18] LABS: WHITE BLOOD COUNT 12.7 10^3/ul (4.8-10.8)
[2018-07-01 11:18] LABS: BASOPHIL # 0.1 10^3/ul (0.0-0.1); BASOPHILS % 0.9 % (0.0-2.0); EOSINOPHILS # 0.5 10^3/ul (0.0-0.5); HEMATOCRIT 22.7 % (37.0-47.0); HEMOGLOBIN 7.7 g/dl (12.0-16.0); LYMPHOCYTES # 4.1 10^3/ul (0.8-2.9); LYMPHOCYTES % 32.4 % (15.0-51.0); MEAN CORPUSCULAR HEMOGLOBIN 29.5 pg (29.0-33.0); MEAN CORPUSCULAR HGB CONC 33.9 g/dl (32.0-37.0); MEAN PLATELET VOLUME 10.2 fl (7.4-10.4); MONOCYTE # 1.2 10^3/ul (0.3-0.9); MONOCYTES % 9.6 % (0.0-11.0); NEUTROPHIL # 6.7 10^3/ul (1.6-7.5); NEUTROPHILS % 52.6 % (39.0-77.0); NUCLEATED RED BLOOD CELLS% 0.2 /100WBC (0.0-0.0); PLATELET COUNT 334 10^3/UL (140-415); RED BLOOD COUNT 2.61 10^6/ul (4.20-5.40); RED CELL DISTRIBUTION WIDTH 18.5 % (11.5-14.5)
[2018-07-01] MEDS: DEXTROSE 5%-0.45% NACL 1,000 ML IV (15:35)
[2018-07-01] MEDS: METHYLNALTREXONE 12 MG/0.6 ML VIAL SC (21:27)
[2018-07-02] MEDS: morphine 4 MG/ML VIAL IV ×6 (01:28→22:20)
[2018-07-02] MEDS: DIPHENHYDRAMINE 50 MG INJ IV ×6 (01:29→22:20)
[2018-07-02] MEDS: ZOLPIDEM 5 MG TAB PO (02:16)
[2018-07-02] MEDS: FUROSEMIDE 20 MG TAB PO (06:20)
[2018-07-02] MEDS: DEXTROSE 5%-0.45% NACL 1,000 ML IV (10:29)
[2018-07-02] MEDS: DOXYCYCLINE 100 MG TAB PO ×2 (10:50→22:23)
[2018-07-02] MEDS: LUBIPROSTONE 24 MCG CAP PO ×2 (10:50→22:23)
[2018-07-02] MEDS: DEFERASIROX 360 MG PO ×2 (10:50→22:24)
[2018-07-02] MEDS: FOLIC ACID 1 MG TAB PO (10:50)
[2018-07-02] MEDS: FAMOTIDINE 20 MG TAB PO ×2 (10:51→22:24)
[2018-07-02] MEDS: LACTULOSE 30ML CUP PO ×2 (10:51→21:00)
[2018-07-02] MEDS: CLARITHROMYCIN 500 MG TAB PO ×2 (10:51→22:24)
[2018-07-02] MEDS: BISACODYL (EC) 5 MG TAB PO ×3 (10:51→22:23)
[2018-07-02] MEDS: HYDROXYUREA 500 MG CAP PO ×2 (10:53→22:27)
[2018-07-02] MEDS: ENOXAPARIN 30 MG/0.3 ML SYG SC (10:55)
[2018-07-02] MEDS: POLYETHYLENE GLYCOL 17 GM PACKET PO ×2 (10:55→22:24)
[2018-07-02] MEDS: ONDANSETRON 4 MG INJ IV (14:23)
[2018-07-02] MEDS: METHYLNALTREXONE 12 MG/0.6 ML VIAL SC (22:56)
[2018-07-03] MEDS: ONDANSETRON 4 MG INJ IV ×3 (02:31→19:18)
[2018-07-03] MEDS: DIPHENHYDRAMINE 50 MG INJ IV ×6 (02:31→23:18)
[2018-07-03] MEDS: morphine 4 MG/ML VIAL IV ×6 (02:31→23:19)
[2018-07-03] MEDS: DEXTROSE 5%-0.45% NACL 1,000 ML IV ×2 (06:47→07:30)
[2018-07-03] MEDS: FOLIC ACID 1 MG TAB PO (09:00)
[2018-07-03] MEDS: LACTULOSE 30ML CUP PO ×3 (09:00→20:59)
[2018-07-03] MEDS: ENOXAPARIN 30 MG/0.3 ML SYG SC (10:43)
[2018-07-03] MEDS: LUBIPROSTONE 24 MCG CAP PO ×2 (10:43→20:58)
[2018-07-03] MEDS: FAMOTIDINE 20 MG TAB PO ×2 (10:43→20:57)
[2018-07-03] MEDS: POLYETHYLENE GLYCOL 17 GM PACKET PO ×2 (10:43→20:58)
[2018-07-03] MEDS: DOXYCYCLINE 100 MG TAB PO ×2 (10:44→20:58)
[2018-07-03] MEDS: FUROSEMIDE 20 MG TAB PO (10:44)
[2018-07-03] MEDS: HYDROXYUREA 500 MG CAP PO ×2 (10:44→21:02)
[2018-07-03] MEDS: CLARITHROMYCIN 500 MG TAB PO ×2 (10:44→20:58)
[2018-07-03] MEDS: BISACODYL (EC) 5 MG TAB PO ×3 (10:45→20:58)
[2018-07-03] MEDS: DEFERASIROX 360 MG PO ×2 (10:46→20:57)
[2018-07-03 10:56] LABS: ADD MAN DIFF? NO
[2018-07-03 11:01] LABS: WHITE BLOOD COUNT 10.3 10^3/ul (4.8-10.8)
[2018-07-03 11:01] LABS: BASOPHIL # 0.1 10^3/ul (0.0-0.1); BASOPHILS % 1.1 % (0.0-2.0); EOSINOPHILS # 0.8 10^3/ul (0.0-0.5); EOSINOPHILS % 7.9 % (0.0-7.0); HEMATOCRIT 22.2 % (37.0-47.0); HEMOGLOBIN 7.3 g/dl (12.0-16.0); LYMPHOCYTES # 4.3 10^3/ul (0.8-2.9); LYMPHOCYTES % 41.8 % (15.0-51.0); MEAN CORPUSCULAR HEMOGLOBIN 29.2 pg (29.0-33.0); MEAN CORPUSCULAR HGB CONC 32.9 g/dl (32.0-37.0); MEAN CORPUSCULAR VOLUME 88.8 fl (82.0-101.0); MEAN PLATELET VOLUME 10.7 fl (7.4-10.4); MONOCYTE # 1.3 10^3/ul (0.3-0.9); MONOCYTES % 12.2 % (0.0-11.0); NEUTROPHIL # 3.8 10^3/ul (1.6-7.5); NEUTROPHILS % 36.4 % (39.0-77.0); NUCLEATED RED BLOOD CELLS # 0.1 10^3/ul (0.0-0.0); NUCLEATED RED BLOOD CELLS% 0.5 /100WBC (0.0-0.0); PLATELET COUNT 314 10^3/UL (140-415); RED CELL DISTRIBUTION WIDTH 18.8 % (11.5-14.5)
[2018-07-03 11:27] LABS: ANION GAP 7 (5-13); BLOOD UREA NITROGEN 13 mg/dl (7-20); CALCIUM 8.7 mg/dl (8.4-10.2); CARBON DIOXIDE 26 mmol/L (21-31); CHLORIDE 106 mmol/L (97-110); Estimated GFR > 60 mL/min (>60); GLUCOSE 138 mg/dl (70-220); POTASSIUM 4.6 mmol/L (3.5-5.1); SODIUM 139 mmol/L (135-144)
[2018-07-03] MEDS: METHYLNALTREXONE 12 MG/0.6 ML VIAL SC (21:04)
[2018-07-04] MEDS: DIPHENHYDRAMINE 50 MG INJ IV ×6 (03:21→23:25)
[2018-07-04] MEDS: DEXTROSE 5%-0.45% NACL 1,000 ML IV (03:22)
[2018-07-04] MEDS: morphine 4 MG/ML VIAL IV ×6 (03:22→23:26)
[2018-07-04] MEDS: FUROSEMIDE 20 MG TAB PO (05:24)
[2018-07-04] MEDS: ONDANSETRON 4 MG INJ IV ×2 (07:25→23:25)
[2018-07-04] MEDS: LUBIPROSTONE 24 MCG CAP PO ×2 (08:47→20:55)
[2018-07-04] MEDS: FAMOTIDINE 20 MG TAB PO ×2 (08:47→20:56)
[2018-07-04] MEDS: FOLIC ACID 1 MG TAB PO (08:47)
[2018-07-04] MEDS: CLARITHROMYCIN 500 MG TAB PO ×2 (08:47→20:55)
[2018-07-04] MEDS: LACTULOSE 30ML CUP PO ×2 (08:48→20:57)
[2018-07-04] MEDS: POLYETHYLENE GLYCOL 17 GM PACKET PO ×2 (08:48→20:56)
[2018-07-04] MEDS: BISACODYL (EC) 5 MG TAB PO ×3 (08:48→20:56)
[2018-07-04] MEDS: DEFERASIROX 360 MG PO ×2 (08:48→20:55)
[2018-07-04] MEDS: DOXYCYCLINE 100 MG TAB PO ×2 (08:48→20:55)
[2018-07-04] MEDS: HYDROXYUREA 500 MG CAP PO ×2 (08:53→21:30)
[2018-07-04] MEDS: ENOXAPARIN 30 MG/0.3 ML SYG SC (08:53)
[2018-07-04 11:05] LABS: ADD MAN DIFF? NO
[2018-07-04 11:08] LABS: BASOPHIL # 0.1 10^3/ul (0.0-0.1); BASOPHILS % 1.3 % (0.0-2.0); EOSINOPHILS # 0.7 10^3/ul (0.0-0.5); EOSINOPHILS % 6.5 % (0.0-7.0); HEMOGLOBIN 7.9 g/dl (12.0-16.0); LYMPHOCYTES # 4.9 10^3/ul (0.8-2.9); LYMPHOCYTES % 43.3 % (15.0-51.0); MEAN CORPUSCULAR HEMOGLOBIN 29.4 pg (29.0-33.0); MEAN CORPUSCULAR HGB CONC 32.9 g/dl (32.0-37.0); MEAN CORPUSCULAR VOLUME 89.2 fl (82.0-101.0); MEAN PLATELET VOLUME 10.7 fl (7.4-10.4); MONOCYTE # 1.2 10^3/ul (0.3-0.9); MONOCYTES % 11.1 % (0.0-11.0); NEUTROPHIL # 4.2 10^3/ul (1.6-7.5); NEUTROPHILS % 37.3 % (39.0-77.0); NUCLEATED RED BLOOD CELLS # 0.1 10^3/ul (0.0-0.0); NUCLEATED RED BLOOD CELLS% 0.5 /100WBC (0.0-0.0); PLATELET COUNT 338 10^3/UL (140-415); RED BLOOD COUNT 2.69 10^6/ul (4.20-5.40)
[2018-07-04 11:08] LABS: WHITE BLOOD COUNT 11.2 10^3/ul (4.8-10.8)
[2018-07-04 11:27] LABS: ANION GAP 10 (5-13); BLOOD UREA NITROGEN 16 mg/dl (7-20); CALCIUM 9.2 mg/dl (8.4-10.2); CARBON DIOXIDE 26 mmol/L (21-31); CHLORIDE 105 mmol/L (97-110); CREATININE 1.01 mg/dl (0.44-1.00); Estimated GFR > 60 mL/min (>60); GLUCOSE 117 mg/dl (70-220); POTASSIUM 4.6 mmol/L (3.5-5.1); SODIUM 141 mmol/L (135-144)
[2018-07-04] MEDS: METHYLNALTREXONE 12 MG/0.6 ML VIAL SC (20:56)
[2018-07-05] MEDS: DIPHENHYDRAMINE 50 MG INJ IV ×6 (03:25→23:50)
[2018-07-05] MEDS: morphine 4 MG/ML VIAL IV ×6 (03:26→23:50)
[2018-07-05] MEDS: FUROSEMIDE 20 MG TAB PO (06:41)
[2018-07-05] MEDS: LACTULOSE 30ML CUP PO ×3 (09:00→20:53)
[2018-07-05] MEDS: POLYETHYLENE GLYCOL 17 GM PACKET PO ×2 (10:09→20:49)
[2018-07-05] MEDS: CLARITHROMYCIN 500 MG TAB PO ×2 (10:09→20:48)
[2018-07-05] MEDS: FOLIC ACID 1 MG TAB PO (10:10)
[2018-07-05] MEDS: DOXYCYCLINE 100 MG TAB PO ×2 (10:10→20:48)
[2018-07-05] MEDS: BISACODYL (EC) 5 MG TAB PO ×3 (10:10→20:49)
[2018-07-05] MEDS: FAMOTIDINE 20 MG TAB PO ×2 (10:10→20:49)
[2018-07-05] MEDS: LUBIPROSTONE 24 MCG CAP PO ×2 (10:10→20:48)
[2018-07-05] MEDS: DEFERASIROX 360 MG PO ×3 (10:11→20:48)
[2018-07-05] MEDS: HYDROXYUREA 500 MG CAP PO ×2 (10:18→20:53)
[2018-07-05] MEDS: ENOXAPARIN 30 MG/0.3 ML SYG SC (10:18)
[2018-07-05 11:33] LABS: ADD MAN DIFF? NO
[2018-07-05 11:43] LABS: BASOPHIL # 0.1 10^3/ul (0.0-0.1); EOSINOPHILS # 0.8 10^3/ul (0.0-0.5); EOSINOPHILS % 7.9 % (0.0-7.0); HEMATOCRIT 21.6 % (37.0-47.0); HEMOGLOBIN 7.2 g/dl (12.0-16.0); LYMPHOCYTES # 3.7 10^3/ul (0.8-2.9); LYMPHOCYTES % 38.6 % (15.0-51.0); MEAN CORPUSCULAR HGB CONC 33.3 g/dl (32.0-37.0); MEAN CORPUSCULAR VOLUME 87.1 fl (82.0-101.0); MEAN PLATELET VOLUME 10.9 fl (7.4-10.4); MONOCYTE # 1.1 10^3/ul (0.3-0.9); MONOCYTES % 11.4 % (0.0-11.0); NEUTROPHIL # 3.9 10^3/ul (1.6-7.5); NEUTROPHILS % 40.7 % (39.0-77.0); NUCLEATED RED BLOOD CELLS # 0.1 10^3/ul (0.0-0.0); NUCLEATED RED BLOOD CELLS% 0.9 /100WBC (0.0-0.0); PLATELET COUNT 315 10^3/UL (140-415); RED BLOOD COUNT 2.48 10^6/ul (4.20-5.40); RED CELL DISTRIBUTION WIDTH 18.8 % (11.5-14.5)
[2018-07-05 11:43] LABS: WHITE BLOOD COUNT 9.6 10^3/ul (4.8-10.8)
[2018-07-05 12:25] LABS: ANION GAP 8 (5-13); BLOOD UREA NITROGEN 16 mg/dl (7-20); CALCIUM 9.1 mg/dl (8.4-10.2); CARBON DIOXIDE 27 mmol/L (21-31); CHLORIDE 104 mmol/L (97-110); CREATININE 0.85 mg/dl (0.44-1.00); Estimated GFR > 60 mL/min (>60); GLUCOSE 111 mg/dl (70-220); POTASSIUM 4.5 mmol/L (3.5-5.1); SODIUM 139 mmol/L (135-144)
[2018-07-05] MEDS: SOD CHLORIDE 0.9% 1,000 ML IV (19:30)
[2018-07-05 19:41] LABS: IMMEDIATE SPIN CROSSMATCH 1 1
[2018-07-05] MEDS: ACETAMINOPHEN 325 MG TAB PO (19:51)
[2018-07-05] MEDS: METHYLNALTREXONE 12 MG/0.6 ML VIAL SC (20:47)
[2018-07-05] MEDS: ONDANSETRON 4 MG INJ IV (23:55)
[2018-07-06] MEDS: SOD CHLORIDE 0.9% 1,000 ML IV ×2 (00:51→13:40)
[2018-07-06] MEDS: morphine 4 MG/ML VIAL IV ×5 (05:26→21:30)
[2018-07-06] MEDS: DIPHENHYDRAMINE 50 MG INJ IV ×5 (05:26→21:30)
[2018-07-06] MEDS: FUROSEMIDE 20 MG TAB PO (05:35)
[2018-07-06] MEDS: CLARITHROMYCIN 500 MG TAB PO ×2 (09:31→21:28)
[2018-07-06] MEDS: LUBIPROSTONE 24 MCG CAP PO ×2 (09:31→21:28)
[2018-07-06] MEDS: FOLIC ACID 1 MG TAB PO (09:32)
[2018-07-06] MEDS: FAMOTIDINE 20 MG TAB PO ×2 (09:32→21:29)
[2018-07-06] MEDS: LACTULOSE 30ML CUP PO ×2 (09:32→21:28)
[2018-07-06] MEDS: BISACODYL (EC) 5 MG TAB PO ×3 (09:32→21:28)
[2018-07-06] MEDS: DEFERASIROX 360 MG PO ×2 (09:32→21:27)
[2018-07-06] MEDS: POLYETHYLENE GLYCOL 17 GM PACKET PO ×2 (09:32→21:29)
[2018-07-06] MEDS: DOXYCYCLINE 100 MG TAB PO ×2 (09:32→21:29)
[2018-07-06] MEDS: ENOXAPARIN 30 MG/0.3 ML SYG SC (09:34)
[2018-07-06] MEDS: HYDROXYUREA 500 MG CAP PO ×2 (09:34→21:39)
[2018-07-06 10:30] LABS: ADD MAN DIFF? NO
[2018-07-06 10:34] LABS: BASOPHIL # 0.1 10^3/ul (0.0-0.1); BASOPHILS % 1.2 % (0.0-2.0); EOSINOPHILS # 0.6 10^3/ul (0.0-0.5); EOSINOPHILS % 7.1 % (0.0-7.0); HEMATOCRIT 23.5 % (37.0-47.0); HEMOGLOBIN 7.9 g/dl (12.0-16.0); LYMPHOCYTES % 46.5 % (15.0-51.0); MEAN CORPUSCULAR HGB CONC 33.6 g/dl (32.0-37.0); MEAN CORPUSCULAR VOLUME 86.4 fl (82.0-101.0); MEAN PLATELET VOLUME 10.8 fl (7.4-10.4); MONOCYTE # 1.2 10^3/ul (0.3-0.9); MONOCYTES % 13.7 % (0.0-11.0); NEUTROPHIL # 2.7 10^3/ul (1.6-7.5); NUCLEATED RED BLOOD CELLS # 0.1 10^3/ul (0.0-0.0); NUCLEATED RED BLOOD CELLS% 1.1 /100WBC (0.0-0.0); PLATELET COUNT 307 10^3/UL (140-415); RED BLOOD COUNT 2.72 10^6/ul (4.20-5.40); RED CELL DISTRIBUTION WIDTH 18.6 % (11.5-14.5)
[2018-07-06 10:34] LABS: WHITE BLOOD COUNT 8.5 10^3/ul (4.8-10.8)
[2018-07-06 10:57] LABS: ANION GAP 6 (5-13); BLOOD UREA NITROGEN 17 mg/dl (7-20); CALCIUM 8.5 mg/dl (8.4-10.2); CARBON DIOXIDE 27 mmol/L (21-31); CHLORIDE 107 mmol/L (97-110); Estimated GFR > 60 mL/min (>60); GLUCOSE 99 mg/dl (70-220); POTASSIUM 4.6 mmol/L (3.5-5.1); SODIUM 140 mmol/L (135-144)
[2018-07-06] MEDS: ONDANSETRON 4 MG INJ IV (18:03)
[2018-07-06] MEDS: METHYLNALTREXONE 12 MG/0.6 ML VIAL SC (21:29)
[2018-07-07] MEDS: SOD CHLORIDE 0.9% 1,000 ML IV ×3 (00:06→10:25)
[2018-07-07] MEDS: ONDANSETRON 4 MG INJ IV (01:25)
[2018-07-07] MEDS: DIPHENHYDRAMINE 50 MG INJ IV ×6 (01:25→22:57)
[2018-07-07] MEDS: morphine 4 MG/ML VIAL IV ×3 (01:26→10:21)
[2018-07-07] MEDS: FUROSEMIDE 20 MG TAB PO (05:39)
[2018-07-07] MEDS: FOLIC ACID 1 MG TAB PO (09:00)
[2018-07-07] MEDS: CLARITHROMYCIN 500 MG TAB PO (09:00)
[2018-07-07] MEDS: HYDROXYUREA 500 MG CAP PO (09:00)
[2018-07-07] MEDS: ENOXAPARIN 30 MG/0.3 ML SYG SC (09:00)
[2018-07-07] MEDS: FAMOTIDINE 20 MG TAB PO (09:00)
[2018-07-07] MEDS: BISACODYL (EC) 5 MG TAB PO ×3 (09:00→22:54)
[2018-07-07] MEDS: DOXYCYCLINE 100 MG TAB PO (09:00)
[2018-07-07] MEDS: POLYETHYLENE GLYCOL 17 GM PACKET PO ×2 (09:00→22:55)
[2018-07-07] MEDS: LUBIPROSTONE 24 MCG CAP PO (09:00)
[2018-07-07] MEDS: DEFERASIROX 360 MG PO ×2 (09:00→21:00)
[2018-07-07 12:47] LABS: ADD UMIC NO; UR ASCORBIC ACID NEGATIVE (NEGATIVE); UR BILIRUBIN (Dip) NEGATIVE (NEGATIVE); UR BLOOD (Dip) NEGATIVE (NEGATIVE); UR CLARITY CLEAR (CLEAR); UR COLOR YELLOW (YELLOW); UR GLUCOSE (Dip) NEGATIVE (NEGATIVE); UR KETONES (Dip) NEGATIVE (NEGATIVE); UR LEUKOCYTE ESTERASE (Dip) NEGATIVE Leu/ul (NEGATIVE); UR NITRITE (Dip) NEGATIVE (NEGATIVE); UR SPECIFIC GRAVITY (Dip) 1.009 (1.003-1.030); UR TOTAL PROTEIN (Dip) NEGATIVE (NEGATIVE); UR UROBILINOGEN (Dip) NEGATIVE (NEGATIVE)
[2018-07-07] MEDS ORDERED: POLYMYXIN/BACITRACIN 1L IRRIG (13:10)
[2018-07-07] MEDS ORDERED: HYDROCODONE/APAP (5/325) TAB PO (14:00)
[2018-07-07] MEDS ORDERED: ACETAMINOPHEN 325 MG TAB PO (14:00)
[2018-07-07] MEDS ORDERED: ZOLPIDEM 5 MG TAB PO (14:00)
[2018-07-07] MEDS ORDERED: BISACODYL (EC) 5 MG TAB PO (14:00)
[2018-07-07] MEDS ORDERED: DOCUSATE SODIUM 100 MG CAP PO (14:00)
[2018-07-07] MEDS: morphine 10 MG INJ IV ×3 (14:50→22:57)
[2018-07-07] MEDS: LACTULOSE 30ML CUP PO (21:00)
[2018-07-07] MEDS: METHYLNALTREXONE 12 MG/0.6 ML VIAL SC (22:54)
[2018-07-08] MEDS: ONDANSETRON 4 MG INJ IV ×3 (02:54→23:40)
[2018-07-08] MEDS: morphine 10 MG INJ IV ×6 (02:54→23:40)
[2018-07-08] MEDS: DIPHENHYDRAMINE 50 MG INJ IV ×6 (02:55→23:40)
[2018-07-08] MEDS: DEFERASIROX 360 MG PO ×2 (09:00→21:00)
[2018-07-08] MEDS: (Nursing Note) XX ×2 (09:00→21:00)
[2018-07-08] MEDS: LACTULOSE 30ML CUP PO ×2 (10:18→21:00)
[2018-07-08] MEDS: BISACODYL (EC) 5 MG TAB PO ×3 (10:18→21:18)
[2018-07-08] MEDS: POLYETHYLENE GLYCOL 17 GM PACKET PO ×2 (10:18→21:18)
[2018-07-08] MEDS: CLARITHROMYCIN 500 MG TAB PO (21:18)
[2018-07-08] MEDS: METHYLNALTREXONE 12 MG/0.6 ML VIAL SC (21:18)
[2018-07-08] MEDS: DOXYCYCLINE 100 MG TAB PO (21:18)
[2018-07-09] MEDS: DIPHENHYDRAMINE 50 MG INJ IV ×5 (03:42→19:44)
[2018-07-09] MEDS: morphine 10 MG INJ IV ×5 (03:42→19:45)
[2018-07-09] MEDS: (Nursing Note) XX ×2 (08:32→20:33)
[2018-07-09] MEDS: DEFERASIROX 360 MG PO ×2 (08:32→20:32)
[2018-07-09] MEDS: POLYETHYLENE GLYCOL 17 GM PACKET PO ×2 (08:52→20:30)
[2018-07-09] MEDS: CLARITHROMYCIN 500 MG TAB PO ×2 (08:52→20:31)
[2018-07-09] MEDS: DOXYCYCLINE 100 MG TAB PO ×2 (08:52→20:31)
[2018-07-09] MEDS: BISACODYL (EC) 5 MG TAB PO ×4 (08:52→20:31)
[2018-07-09] MEDS: LACTULOSE 30ML CUP PO ×2 (08:53→20:30)
[2018-07-09 11:34] LABS: WHITE BLOOD COUNT 10.1 10^3/ul (4.8-10.8)
[2018-07-09 11:34] LABS: ABNORMAL IP MESSAGE 1; HEMATOCRIT 24.4 % (37.0-47.0); HEMOGLOBIN 8.2 g/dl (12.0-16.0); MEAN CORPUSCULAR HEMOGLOBIN 29.6 pg (29.0-33.0); MEAN CORPUSCULAR HGB CONC 33.6 g/dl (32.0-37.0); MEAN CORPUSCULAR VOLUME 88.1 fl (82.0-101.0); MEAN PLATELET VOLUME 10.2 fl (7.4-10.4); NUCLEATED RED BLOOD CELLS% 0.8 /100WBC (0.0-0.0); PLATELET COUNT 261 10^3/UL (140-415); RED BLOOD COUNT 2.77 10^6/ul (4.20-5.40); RED CELL DISTRIBUTION WIDTH 18.8 % (11.5-14.5)
[2018-07-09] MEDS: ONDANSETRON 4 MG INJ IV ×2 (11:36→20:30)
[2018-07-09 11:43] LABS: POSITIVE DIFF @See below
[2018-07-09 11:45] LABS: ADD MAN DIFF? YES
[2018-07-09 12:38] LABS: ANISOCYTOSIS 1+ (0-0); BASOPHIL #M 0.3 10^3/ul (0.0-0.0); BASOPHILS % (M) 3 % (0-2); EOSINOPHILS % (M) 8 % (0-7); ERYTHROBLAST% (NRBC) (M) 4 % (0-0); LYMPHOCYTES #M 6.4 10^3/ul (0.8-2.9); LYMPHOCYTES % (M) 64 % (15-51); METAMYELOCYTES #M 0.1 10^3/ul (0.0-0.0); METAMYELOCYTES %M 1 % (0-0); MONOCYTE #M 0.5 10^3/ul (0.3-0.9); MONOCYTES % (M) 5 % (0-11); PLATELET ESTIMATE NORMAL; POLYCHROMASIA 1+ (0-0); SEGMENTED NEUTROPHILS (M) % 19 % (39-77); SMUDGE%M 18 % (0-0); SPHEROCYTES 1+ (0-0); TARGET CELLS 1+ (0-0)
[2018-07-09] MEDS ORDERED: HEPARIN (100 UNITS/ML) 5 ML SYG CATHETER (16:30)
[2018-07-09] MEDS: METHYLNALTREXONE 12 MG/0.6 ML VIAL SC (20:30)
[2018-07-09] MEDS: HEPARIN (100 UNITS/ML) 5 ML SYG CATHETER (22:14)
== END 2018-07-09 23:00 | disposition home or self-care (01) | DRG 871 ==
LOC: 2NE 06-21 22:06 → E/R 08:25 → 2NE 11:30
PROC: 30233N1 Transfusion of Nonautologous Red Blood Cells into Peripheral Vein, Percutaneous Approach (ICD-10-PCS; principal; 2018-06-10)
DX: A41.89 Other specified sepsis (principal); D57.00 Hb-SS disease with crisis, unspecified; N39.0 Urinary tract infection, site not specified; N17.9 Acute kidney failure, unspecified; F41.9 Anxiety disorder, unspecified; B96.20 Unspecified Escherichia coli [E. coli] as the cause of diseases classified elsewhere; E83.111 Hemochromatosis due to repeated red blood cell transfusions; E87.5 Hyperkalemia; K59.03 Drug induced constipation; R73.9 Hyperglycemia, unspecified; K59.00 Constipation, unspecified; Z87.440 Personal history of urinary (tract) infections; Z86.711 Personal history of pulmonary embolism
CPT/HCPCS: 36415; 36430; 71045; 71250; 76775; 78806; 80048; 80053; 80076; 81001; 81003; 82150; 82728; 83036; 83540; 83605; 83690; 84484; 85025; 85610; 85730; 86644; 86850; 86900; 86901; 86920; 86945; 87040-91; 87081; 87086; 87400; 93005; 93306; 96365; 96375; 99285-25

== ENCOUNTER 2018-08-03 15:06 | Emergency (ER) | payer OTHER ==
[2018-08-03 16:10] LABS: ADD MAN DIFF? NO
[2018-08-03 16:12] LABS: BASOPHIL # 0.1 10^3/ul (0.0-0.1); BASOPHILS % 0.7 % (0.0-2.0); EOSINOPHILS # 0.4 10^3/ul (0.0-0.5); HEMATOCRIT 22.6 % (37.0-47.0); HEMOGLOBIN 7.4 g/dl (12.0-16.0); LYMPHOCYTES # 4.3 10^3/ul (0.8-2.9); LYMPHOCYTES % 25.2 % (15.0-51.0); MEAN CORPUSCULAR HEMOGLOBIN 29.8 pg (29.0-33.0); MEAN CORPUSCULAR HGB CONC 32.7 g/dl (32.0-37.0); MEAN CORPUSCULAR VOLUME 91.1 fl (82.0-101.0); MEAN PLATELET VOLUME 10.4 fl (7.4-10.4); MONOCYTE # 1.4 10^3/ul (0.3-0.9); NEUTROPHIL # 10.9 10^3/ul (1.6-7.5); NEUTROPHILS % 63.5 % (39.0-77.0); NUCLEATED RED BLOOD CELLS # 0.2 10^3/ul (0.0-0.0); NUCLEATED RED BLOOD CELLS% 1.2 /100WBC (0.0-0.0); PLATELET COUNT 297 10^3/UL (140-415); RED BLOOD COUNT 2.48 10^6/ul (4.20-5.40); RED CELL DISTRIBUTION WIDTH 20.9 % (11.5-14.5)
[2018-08-03 16:12] LABS: WHITE BLOOD COUNT 17.2 10^3/ul (4.8-10.8)
[2018-08-03 16:16] LABS: INR 1.01; PROTIME 13.4 Sec (11.9-14.9)
[2018-08-03] MEDS: morphine 10 MG INJ IV (16:17)
[2018-08-03] MEDS: DIPHENHYDRAMINE 50 MG INJ IV ×3 (16:17→21:29)
[2018-08-03] MEDS: CEFEPIME 2GM/50 ML (PMX) 50 ML IVPB (16:17)
[2018-08-03] MEDS: ONDANSETRON 4 MG INJ IV ×3 (16:17→21:29)
[2018-08-03 16:22] LABS: ALANINE AMINOTRANSFERASE 92 IU/L (13-69); ALBUMIN 4.1 g/dl (3.3-4.9); ALBUMIN/GLOBULIN RATIO 0.95; ALKALINE PHOSPHATASE 162 IU/L (42-121); ANION GAP 9 (5-13); ASPARTATE AMINO TRANSFERASE 81 IU/L (15-46); BILIRUBIN,INDIRECT 1.6 mg/dl (0-1.1); BILIRUBIN,TOTAL 1.6 mg/dl (0.2-1.3); BLOOD UREA NITROGEN 15 mg/dl (7-20); CALCIUM 8.7 mg/dl (8.4-10.2); CARBON DIOXIDE 24 mmol/L (21-31); CHLORIDE 110 mmol/L (97-110); CREATININE 0.74 mg/dl (0.44-1.00); Estimated GFR > 60 mL/min (>60); GLUCOSE 105 mg/dl (70-220); SODIUM 143 mmol/L (135-144); TOTAL PROTEIN 8.4 g/dl (6.1-8.1)
[2018-08-03] MEDS: SODIUM CHLORIDE 0.9% 1L BAG IV* (16:24)
[2018-08-03 16:30] LABS: RETICULOCYTE RBC 2.46
[2018-08-03 16:30] LABS: RETICULOCYTE COUNT # 0.247 X10^6 (0.020-0.110); RETICULOCYTE COUNT % 10.1 % (0.5-1.5)
[2018-08-03 16:33] LABS: TROPONIN-I < 0.012 ng/ml (0.000-0.120)
[2018-08-03] MEDS: VANCOMYCIN 1 GM (PMX) 250 ML IVPB (17:16)
[2018-08-03] MEDS: morphine 4 MG/ML VIAL IV ×2 (17:36→21:31)
[2018-08-03 17:40] LABS: ADD UMIC YES; UR ASCORBIC ACID NEGATIVE (NEGATIVE); UR BACTERIA FEW /HPF (NONE SEEN); UR BILIRUBIN (Dip) NEGATIVE (NEGATIVE); UR BLOOD (Dip) 1+ mg/dL (NEGATIVE); UR CLARITY CLEAR (CLEAR); UR COLOR YELLOW (YELLOW); UR GLUCOSE (Dip) NEGATIVE (NEGATIVE); UR KETONES (Dip) NEGATIVE (NEGATIVE); UR LEUKOCYTE ESTERASE (Dip) NEGATIVE Leu/ul (NEGATIVE); UR NITRITE (Dip) NEGATIVE (NEGATIVE); UR RBC 1 /HPF (0-5); UR SPECIFIC GRAVITY (Dip) 1.013 (1.003-1.030); UR TOTAL PROTEIN (Dip) NEGATIVE (NEGATIVE); UR UROBILINOGEN (Dip) NEGATIVE (NEGATIVE); UR WBC 0 /HPF (0-5)
[2018-08-03 22:16] LABS: IMMEDIATE SPIN CROSSMATCH 1 1
[2018-08-03] MEDS ORDERED: ACETAMINOPHEN 325 MG TAB (22:25)
[2018-08-03] MEDS: ACETAMINOPHEN 325 MG TAB PO (22:28)
== END 2018-08-04 01:08 | disposition home or self-care (01) ==
LOC: E/R 08-04 01:08
DX: D57.00 Hb-SS disease with crisis, unspecified (principal); D64.9 Anemia, unspecified; R07.9 Chest pain, unspecified; R50.9 Fever, unspecified
CPT/HCPCS: 36415; 36430; 71045; 80053; 81001; 83605; 84484; 85025; 85045; 85610; 85730; 86850; 86900; 86901; 86920; 87040-91; 87086; 93005; 96374; 96375; 96376; 99285-25

== ENCOUNTER 2018-08-14 05:18 | Inpatient (IN) | payer OTHER ==
[2018-08-14] MEDS ORDERED: HYDROmorphONE 0.5 MG/0.5 ML SYG IV (07:16)
[2018-08-14 07:55] LABS: ADD MAN DIFF? NO
[2018-08-14 08:01] LABS: WHITE BLOOD COUNT 14.1 10^3/ul (4.8-10.8)
[2018-08-14 08:01] LABS: ABNORMAL IP MESSAGE 1; BASOPHIL # 0.1 10^3/ul (0.0-0.1); BASOPHILS % 0.9 % (0.0-2.0); EOSINOPHILS # 0.2 10^3/ul (0.0-0.5); EOSINOPHILS % 1.7 % (0.0-7.0); HEMATOCRIT 22.5 % (37.0-47.0); HEMOGLOBIN 7.5 g/dl (12.0-16.0); LYMPHOCYTES # 2.5 10^3/ul (0.8-2.9); LYMPHOCYTES % 17.5 % (15.0-51.0); MEAN CORPUSCULAR HEMOGLOBIN 30.2 pg (29.0-33.0); MEAN CORPUSCULAR HGB CONC 33.3 g/dl (32.0-37.0); MEAN CORPUSCULAR VOLUME 90.7 fl (82.0-101.0); MEAN PLATELET VOLUME 10.6 fl (7.4-10.4); MONOCYTE # 1.6 10^3/ul (0.3-0.9); MONOCYTES % 11.5 % (0.0-11.0); NEUTROPHIL # 9.5 10^3/ul (1.6-7.5); NEUTROPHILS % 67.5 % (39.0-77.0); NUCLEATED RED BLOOD CELLS # 0.2 10^3/ul (0.0-0.0); NUCLEATED RED BLOOD CELLS% 1.3 /100WBC (0.0-0.0); PLATELET COUNT 330 10^3/UL (140-415); RED BLOOD COUNT 2.48 10^6/ul (4.20-5.40); RED CELL DISTRIBUTION WIDTH 20.3 % (11.5-14.5)
[2018-08-14] MEDS: IBUPROFEN 600 MG TAB PO (08:01)
[2018-08-14] MEDS: morphine 4 MG/ML VIAL IV (08:01)
[2018-08-14] MEDS: SODIUM CHLORIDE 0.9% 1L BAG IV* (08:02)
[2018-08-14] MEDS: ONDANSETRON 4 MG INJ IV ×2 (08:02→12:41)
[2018-08-14] MEDS: CEFEPIME 1GM/50 ML (PMX) 50 ML IVPB (08:08)
[2018-08-14 08:15] LABS: ALANINE AMINOTRANSFERASE 72 IU/L (13-69); ALBUMIN/GLOBULIN RATIO 1.05; ALKALINE PHOSPHATASE 173 IU/L (42-121); ANION GAP 7 (5-13); ASPARTATE AMINO TRANSFERASE 84 IU/L (15-46); BILIRUBIN,INDIRECT 2.5 mg/dl (0-1.1); BILIRUBIN,TOTAL 2.5 mg/dl (0.2-1.3); BLOOD UREA NITROGEN 15 mg/dl (7-20); CALCIUM 8.4 mg/dl (8.4-10.2); CARBON DIOXIDE 25 mmol/L (21-31); CHLORIDE 109 mmol/L (97-110); Estimated GFR > 60 mL/min (>60); GLUCOSE 110 mg/dl (70-220); LIPASE 77 U/L (23-300); POTASSIUM 4.6 mmol/L (3.5-5.1); SODIUM 141 mmol/L (135-144); TOTAL PROTEIN 7.8 g/dl (6.1-8.1)
[2018-08-14 08:17] LABS: INR 1.04; PROTIME 13.7 Sec (11.9-14.9); PT RATIO 1.1
[2018-08-14 08:19] LABS: POSITIVE DIFF @See below
[2018-08-14 08:26] LABS: TROPONIN-I < 0.012 ng/ml (0.000-0.120)
[2018-08-14 08:53] LABS: ADD UMIC NO; UR ASCORBIC ACID NEGATIVE (NEGATIVE); UR BILIRUBIN (Dip) NEGATIVE (NEGATIVE); UR BLOOD (Dip) NEGATIVE (NEGATIVE); UR CLARITY CLEAR (CLEAR); UR COLOR YELLOW (YELLOW); UR GLUCOSE (Dip) NEGATIVE (NEGATIVE); UR KETONES (Dip) NEGATIVE (NEGATIVE); UR LEUKOCYTE ESTERASE (Dip) NEGATIVE Leu/ul (NEGATIVE); UR NITRITE (Dip) NEGATIVE (NEGATIVE); UR SPECIFIC GRAVITY (Dip) 1.011 (1.003-1.030); UR TOTAL PROTEIN (Dip) NEGATIVE (NEGATIVE); UR UROBILINOGEN (Dip) NEGATIVE (NEGATIVE)
[2018-08-14] MEDS: VANCOMYCIN 1 GM (PMX) 250 ML IVPB (09:00)
[2018-08-14] MEDS: morphine 10 MG INJ IV ×3 (12:21→20:22)
[2018-08-14] MEDS: DIPHENHYDRAMINE 50 MG INJ IV ×3 (12:21→20:21)
[2018-08-14] MEDS ORDERED: BISACODYL (EC) 5 MG TAB PO (13:00)
[2018-08-14] MEDS ORDERED: ZOLPIDEM 5 MG TAB PO (13:00)
[2018-08-14 13:35] LABS: LACTIC ACID 0.7 mmol/L (0.5-2.0)
[2018-08-14] MEDS: SOD CHLORIDE 0.45% 1,000 ML IV ×2 (14:46→22:47)
[2018-08-14] MEDS: DOCUSATE SODIUM 100 MG CAP PO ×2 (17:23→20:21)
[2018-08-14] MEDS: ENOXAPARIN 30 MG/0.3 ML SYG SC (17:27)
[2018-08-14] MEDS ORDERED: VANCOMYCIN IV PER PHARMACY XX (19:30)
[2018-08-14] MEDS: VANCOMYCIN 750 MG (PMX) 250 ML IVPB (20:21)
[2018-08-14] MEDS: FAMOTIDINE 20 MG TAB PO (20:21)
[2018-08-14] MEDS ORDERED: NON-FORMULARY/PATIENT OWN MED (Deferasirox (Jadenu) 360 MG) PO (21:00)
[2018-08-14] MEDS: CEFEPIME 2GM/50 ML (PMX) 50 ML IVPB (22:31)
[2018-08-14] MEDS: HYDROXYUREA 500 MG CAP PO (23:04)
[2018-08-14] MEDS: MINOCYCLINE HCL 100 MG in SOD CHLORIDE 0.9% 100 ML IVPB (23:04)
[2018-08-15] MEDS: DIPHENHYDRAMINE 50 MG INJ IV ×6 (00:26→21:04)
[2018-08-15] MEDS: morphine 10 MG INJ IV ×6 (00:27→21:04)
[2018-08-15] MEDS: SOD CHLORIDE 0.45% 1,000 ML IV ×2 (04:57→18:47)
[2018-08-15 05:31] LABS: ADD MAN DIFF? NO
[2018-08-15 05:35] LABS: WHITE BLOOD COUNT 12.1 10^3/ul (4.8-10.8)
[2018-08-15 05:35] LABS: ABNORMAL IP MESSAGE 1; BASOPHIL # 0.1 10^3/ul (0.0-0.1); BASOPHILS % 1.1 % (0.0-2.0); EOSINOPHILS # 0.9 10^3/ul (0.0-0.5); EOSINOPHILS % 7.7 % (0.0-7.0); HEMATOCRIT 20.5 % (37.0-47.0); LYMPHOCYTES # 4.4 10^3/ul (0.8-2.9); LYMPHOCYTES % 36.1 % (15.0-51.0); MEAN CORPUSCULAR HEMOGLOBIN 29.8 pg (29.0-33.0); MEAN CORPUSCULAR HGB CONC 32.7 g/dl (32.0-37.0); MEAN CORPUSCULAR VOLUME 91.1 fl (82.0-101.0); MEAN PLATELET VOLUME 11.1 fl (7.4-10.4); MONOCYTE # 1.6 10^3/ul (0.3-0.9); MONOCYTES % 13.2 % (0.0-11.0); NEUTROPHILS % 40.9 % (39.0-77.0); NUCLEATED RED BLOOD CELLS # 0.2 10^3/ul (0.0-0.0); NUCLEATED RED BLOOD CELLS% 1.5 /100WBC (0.0-0.0); PLATELET COUNT 291 10^3/UL (140-415); RED BLOOD COUNT 2.25 10^6/ul (4.20-5.40); RED CELL DISTRIBUTION WIDTH 19.7 % (11.5-14.5)
[2018-08-15 05:49] LABS: POSITIVE DIFF @See below
[2018-08-15 05:52] LABS: HEMOGLOBIN 6.7 g/dl (12.0-16.0)
[2018-08-15 06:13] LABS: ALANINE AMINOTRANSFERASE 61 IU/L (13-69); ALBUMIN 3.7 g/dl (3.3-4.9); ALBUMIN/GLOBULIN RATIO 1.12; ALKALINE PHOSPHATASE 119 IU/L (42-121); ANION GAP 8 (5-13); ASPARTATE AMINO TRANSFERASE 73 IU/L (15-46); BILIRUBIN,INDIRECT 2.9 mg/dl (0-1.1); BILIRUBIN,TOTAL 2.9 mg/dl (0.2-1.3); BLOOD UREA NITROGEN 11 mg/dl (7-20); CALCIUM 8.6 mg/dl (8.4-10.2); CARBON DIOXIDE 26 mmol/L (21-31); CHLORIDE 108 mmol/L (97-110); CREATININE 0.74 mg/dl (0.44-1.00); Estimated GFR > 60 mL/min (>60); GLUCOSE 98 mg/dl (70-220); POTASSIUM 4.8 mmol/L (3.5-5.1); SODIUM 142 mmol/L (135-144)
[2018-08-15] MEDS: FAMOTIDINE 20 MG TAB PO ×2 (08:18→21:04)
[2018-08-15] MEDS: DOCUSATE SODIUM 100 MG CAP PO ×2 (08:18→21:04)
[2018-08-15] MEDS: FOLIC ACID 1 MG TAB PO (08:18)
[2018-08-15] MEDS: VANCOMYCIN 750 MG (PMX) 250 ML IVPB ×2 (08:19→23:40)
[2018-08-15] MEDS: MINOCYCLINE HCL 100 MG in SOD CHLORIDE 0.9% 100 ML IVPB ×2 (08:19→22:03)
[2018-08-15] MEDS: CEFEPIME 2GM/50 ML (PMX) 50 ML IVPB ×2 (08:19→21:03)
[2018-08-15] MEDS: HYDROXYUREA 500 MG CAP PO ×2 (08:21→21:18)
[2018-08-15] MEDS: ENOXAPARIN 30 MG/0.3 ML SYG SC (08:22)
[2018-08-15] MEDS: [UNRECOGNIZED DRUG - OTHER] XX (13:00)
[2018-08-15 16:57] LABS: IMMEDIATE SPIN CROSSMATCH 1 2
[2018-08-15] MEDS: ACETAMINOPHEN 325 MG TAB PO (17:02)
[2018-08-15] MEDS ORDERED: PATIENT'S OWN MEDICATION PO (21:00)
[2018-08-15] MEDS: MICONAZOLE 2% 45 GM VAG CR VAG (21:03)
[2018-08-15] MEDS: JADENU (DEFERASIROX) 360 MG TABLET PO (21:04)
[2018-08-16] MEDS: morphine 10 MG INJ IV ×5 (03:54→20:29)
[2018-08-16] MEDS: DIPHENHYDRAMINE 50 MG INJ IV ×5 (03:54→20:29)
[2018-08-16] MEDS: SOD CHLORIDE 0.45% 1,000 ML IV ×3 (04:47→14:47)
[2018-08-16] MEDS: MINOCYCLINE HCL 100 MG in SOD CHLORIDE 0.9% 100 ML IVPB ×2 (08:38→21:50)
[2018-08-16] MEDS: CEFEPIME 2GM/50 ML (PMX) 50 ML IVPB ×2 (08:39→20:32)
[2018-08-16] MEDS: DOCUSATE SODIUM 100 MG CAP PO ×2 (08:39→20:31)
[2018-08-16] MEDS: FAMOTIDINE 20 MG TAB PO ×2 (08:39→20:31)
[2018-08-16] MEDS: FOLIC ACID 1 MG TAB PO (08:40)
[2018-08-16] MEDS: ENOXAPARIN 30 MG/0.3 ML SYG SC (08:41)
[2018-08-16] MEDS: HYDROXYUREA 500 MG CAP PO ×2 (08:41→20:43)
[2018-08-16] MEDS: JADENU (DEFERASIROX) 360 MG TABLET PO ×2 (08:46→20:32)
[2018-08-16] MEDS: VANCOMYCIN 750 MG (PMX) 250 ML IVPB (11:10)
[2018-08-16 13:36] LABS: ADD MAN DIFF? NO
[2018-08-16 13:37] LABS: ABNORMAL IP MESSAGE 1; BASOPHIL # 0.2 10^3/ul (0.0-0.1); BASOPHILS % 1.2 % (0.0-2.0); EOSINOPHILS # 1.1 10^3/ul (0.0-0.5); EOSINOPHILS % 8.7 % (0.0-7.0); HEMATOCRIT 24.4 % (37.0-47.0); HEMOGLOBIN 8.1 g/dl (12.0-16.0); LYMPHOCYTES # 5.1 10^3/ul (0.8-2.9); LYMPHOCYTES % 40.6 % (15.0-51.0); MEAN CORPUSCULAR HEMOGLOBIN 30.2 pg (29.0-33.0); MEAN CORPUSCULAR HGB CONC 33.2 g/dl (32.0-37.0); MEAN PLATELET VOLUME 10.8 fl (7.4-10.4); MONOCYTE # 1.8 10^3/ul (0.3-0.9); MONOCYTES % 13.9 % (0.0-11.0); NEUTROPHIL # 4.4 10^3/ul (1.6-7.5); NUCLEATED RED BLOOD CELLS # 0.2 10^3/ul (0.0-0.0); NUCLEATED RED BLOOD CELLS% 1.7 /100WBC (0.0-0.0); PLATELET COUNT 282 10^3/UL (140-415); RED BLOOD COUNT 2.68 10^6/ul (4.20-5.40); RED CELL DISTRIBUTION WIDTH 19.5 % (11.5-14.5)
[2018-08-16 13:37] LABS: WHITE BLOOD COUNT 12.6 10^3/ul (4.8-10.8)
[2018-08-16 13:39] LABS: POSITIVE DIFF @See below
[2018-08-16 13:57] LABS: ALANINE AMINOTRANSFERASE 53 IU/L (13-69); ALBUMIN 3.9 g/dl (3.3-4.9); ALKALINE PHOSPHATASE 150 IU/L (42-121); ANION GAP 9 (5-13); ASPARTATE AMINO TRANSFERASE 67 IU/L (15-46); BILIRUBIN,INDIRECT 1.9 mg/dl (0-1.1); BILIRUBIN,TOTAL 1.9 mg/dl (0.2-1.3); BLOOD UREA NITROGEN 9 mg/dl (7-20); CALCIUM 8.4 mg/dl (8.4-10.2); CARBON DIOXIDE 24 mmol/L (21-31); CHLORIDE 107 mmol/L (97-110); CREATININE 0.64 mg/dl (0.44-1.00); Estimated GFR > 60 mL/min (>60); GLUCOSE 96 mg/dl (70-220); POTASSIUM 4.7 mmol/L (3.5-5.1); SODIUM 140 mmol/L (135-144); TOTAL PROTEIN 7.8 g/dl (6.1-8.1)
[2018-08-16] MEDS: ONDANSETRON 4 MG INJ IV (16:35)
[2018-08-16] MEDS: MICONAZOLE 2% 45 GM VAG CR VAG (20:37)
[2018-08-16 23:55] LABS: VANCOMYCIN,TROUGH 9.5 ug/ml (10.0-20.0)
[2018-08-17] MEDS: VANCOMYCIN 1 GM 250 ML IVPB ×2 (00:12→13:29)
[2018-08-17] MEDS: SOD CHLORIDE 0.45% 1,000 ML IV ×4 (00:12→20:47)
[2018-08-17] MEDS: DIPHENHYDRAMINE 50 MG INJ IV ×6 (00:46→22:18)
[2018-08-17] MEDS: morphine 10 MG INJ IV ×6 (00:47→22:18)
[2018-08-17] MEDS: CEFEPIME 2GM/50 ML (PMX) 50 ML IVPB ×2 (09:20→22:17)
[2018-08-17] MEDS: MINOCYCLINE HCL 100 MG in SOD CHLORIDE 0.9% 100 ML IVPB ×2 (09:20→23:38)
[2018-08-17] MEDS: FOLIC ACID 1 MG TAB PO (09:24)
[2018-08-17] MEDS: DOCUSATE SODIUM 100 MG CAP PO ×2 (09:24→22:17)
[2018-08-17] MEDS: FAMOTIDINE 20 MG TAB PO ×2 (09:24→22:17)
[2018-08-17] MEDS: JADENU (DEFERASIROX) 360 MG TABLET PO ×2 (09:25→22:17)
[2018-08-17] MEDS: ENOXAPARIN 30 MG/0.3 ML SYG SC (09:25)
[2018-08-17] MEDS: HYDROXYUREA 500 MG CAP PO ×2 (09:25→22:30)
[2018-08-17 10:28] LABS: ADD MAN DIFF? NO
[2018-08-17 10:30] LABS: BASOPHIL # 0.1 10^3/ul (0.0-0.1); BASOPHILS % 0.8 % (0.0-2.0); EOSINOPHILS # 0.7 10^3/ul (0.0-0.5); EOSINOPHILS % 5.9 % (0.0-7.0); HEMATOCRIT 23.4 % (37.0-47.0); HEMOGLOBIN 7.6 g/dl (12.0-16.0); LYMPHOCYTES # 2.3 10^3/ul (0.8-2.9); LYMPHOCYTES % 20.1 % (15.0-51.0); MEAN CORPUSCULAR HEMOGLOBIN 29.3 pg (29.0-33.0); MEAN CORPUSCULAR HGB CONC 32.5 g/dl (32.0-37.0); MEAN CORPUSCULAR VOLUME 90.3 fl (82.0-101.0); MEAN PLATELET VOLUME 10.3 fl (7.4-10.4); MONOCYTES % 8.9 % (0.0-11.0); NEUTROPHIL # 7.3 10^3/ul (1.6-7.5); NEUTROPHILS % 63.5 % (39.0-77.0); NUCLEATED RED BLOOD CELLS # 0.2 10^3/ul (0.0-0.0); NUCLEATED RED BLOOD CELLS% 1.7 /100WBC (0.0-0.0); PLATELET COUNT 269 10^3/UL (140-415); RED BLOOD COUNT 2.59 10^6/ul (4.20-5.40); RED CELL DISTRIBUTION WIDTH 19.6 % (11.5-14.5)
[2018-08-17 10:30] LABS: WHITE BLOOD COUNT 11.5 10^3/ul (4.8-10.8)
[2018-08-17 10:46] LABS: ALANINE AMINOTRANSFERASE 64 IU/L (13-69); ALBUMIN 3.3 g/dl (3.3-4.9); ALBUMIN/GLOBULIN RATIO 0.91; ALKALINE PHOSPHATASE 148 IU/L (42-121); ANION GAP 5 (5-13); ASPARTATE AMINO TRANSFERASE 67 IU/L (15-46); BILIRUBIN,INDIRECT 2.2 mg/dl (0-1.1); BILIRUBIN,TOTAL 2.2 mg/dl (0.2-1.3); BLOOD UREA NITROGEN 8 mg/dl (7-20); CALCIUM 8.2 mg/dl (8.4-10.2); CARBON DIOXIDE 24 mmol/L (21-31); CHLORIDE 109 mmol/L (97-110); CREATININE 0.69 mg/dl (0.44-1.00); Estimated GFR > 60 mL/min (>60); GLUCOSE 83 mg/dl (70-220); SODIUM 138 mmol/L (135-144); TOTAL PROTEIN 6.9 g/dl (6.1-8.1)
[2018-08-17] MEDS: MICONAZOLE 2% 45 GM VAG CR VAG (22:19)
[2018-08-18] MEDS: ONDANSETRON 4 MG INJ IV ×2 (02:06→12:54)
[2018-08-18] MEDS: DIPHENHYDRAMINE 50 MG INJ IV ×5 (02:09→21:03)
[2018-08-18] MEDS: morphine 10 MG INJ IV ×5 (02:13→21:03)
[2018-08-18] MEDS: SOD CHLORIDE 0.45% 1,000 ML IV ×3 (06:47→19:49)
[2018-08-18] MEDS: AZITHROMYCIN 250 MG TAB PO ×3 (09:00→14:23)
[2018-08-18] MEDS ORDERED: PATIENT'S OWN MEDICATION PO ×2 (09:00→21:00)
[2018-08-18] MEDS: DOCUSATE SODIUM 100 MG CAP PO ×2 (09:01→20:58)
[2018-08-18] MEDS: FOLIC ACID 1 MG TAB PO (09:01)
[2018-08-18] MEDS: FAMOTIDINE 20 MG TAB PO ×2 (09:01→20:58)
[2018-08-18] MEDS: JADENU (DEFERASIROX) 360 MG TABLET PO (09:02)
[2018-08-18] MEDS: HYDROXYUREA 500 MG CAP PO ×2 (09:11→21:02)
[2018-08-18] MEDS: ENOXAPARIN 30 MG/0.3 ML SYG SC (09:12)
[2018-08-18] MEDS: CEFEPIME 2GM/50 ML (PMX) 50 ML IVPB (09:13)
[2018-08-18] MEDS: PATIENT'S OWN MEDICATION PO ×2 (11:28→20:57)
[2018-08-19] MEDS: ONDANSETRON 4 MG INJ IV ×2 (01:06→13:39)
[2018-08-19] MEDS: DIPHENHYDRAMINE 50 MG INJ IV ×6 (01:06→21:31)
[2018-08-19] MEDS: morphine 10 MG INJ IV ×6 (01:07→21:31)
[2018-08-19] MEDS: SOD CHLORIDE 0.45% 1,000 ML IV ×2 (05:43→15:49)
[2018-08-19] MEDS: PATIENT'S OWN MEDICATION PO ×2 (09:38→21:28)
[2018-08-19] MEDS: FAMOTIDINE 20 MG TAB PO ×2 (09:38→21:26)
[2018-08-19] MEDS: AZITHROMYCIN 250 MG TAB PO (09:38)
[2018-08-19] MEDS: DOCUSATE SODIUM 100 MG CAP PO ×2 (09:38→21:27)
[2018-08-19] MEDS: FOLIC ACID 1 MG TAB PO (09:38)
[2018-08-19] MEDS: METHYLNALTREXONE 12 MG/0.6 ML VIAL SC (09:39)
[2018-08-19] MEDS: HYDROXYUREA 500 MG CAP PO ×2 (09:41→21:27)
[2018-08-19] MEDS: ENOXAPARIN 30 MG/0.3 ML SYG SC (09:42)
[2018-08-19] MEDS ORDERED: PNEUMOCOCCAL VACCINE 0.5 ML INJ IM* (10:00)
[2018-08-19 14:29] LABS: ADD MAN DIFF? NO
[2018-08-19 14:32] LABS: BASOPHIL # 0.1 10^3/ul (0.0-0.1); BASOPHILS % 0.8 % (0.0-2.0); EOSINOPHILS # 0.7 10^3/ul (0.0-0.5); EOSINOPHILS % 6.7 % (0.0-7.0); HEMATOCRIT 22.7 % (37.0-47.0); HEMOGLOBIN 7.5 g/dl (12.0-16.0); LYMPHOCYTES # 4.6 10^3/ul (0.8-2.9); LYMPHOCYTES % 42.6 % (15.0-51.0); MEAN CORPUSCULAR HEMOGLOBIN 29.6 pg (29.0-33.0); MEAN CORPUSCULAR VOLUME 89.7 fl (82.0-101.0); MEAN PLATELET VOLUME 10.7 fl (7.4-10.4); MONOCYTE # 1.2 10^3/ul (0.3-0.9); MONOCYTES % 11.3 % (0.0-11.0); NEUTROPHIL # 4.1 10^3/ul (1.6-7.5); NEUTROPHILS % 38.1 % (39.0-77.0); NUCLEATED RED BLOOD CELLS # 0.1 10^3/ul (0.0-0.0); NUCLEATED RED BLOOD CELLS% 1.1 /100WBC (0.0-0.0); PLATELET COUNT 282 10^3/UL (140-415); RED BLOOD COUNT 2.53 10^6/ul (4.20-5.40); RED CELL DISTRIBUTION WIDTH 18.7 % (11.5-14.5)
[2018-08-19 14:32] LABS: WHITE BLOOD COUNT 10.7 10^3/ul (4.8-10.8)
[2018-08-20] MEDS: morphine 10 MG INJ IV ×6 (01:26→21:54)
[2018-08-20] MEDS: DIPHENHYDRAMINE 50 MG INJ IV ×6 (01:26→21:53)
[2018-08-20] MEDS: ONDANSETRON 4 MG INJ IV (01:33)
[2018-08-20] MEDS: SOD CHLORIDE 0.45% 1,000 ML IV ×2 (06:55→22:34)
[2018-08-20] MEDS: PATIENT'S OWN MEDICATION PO ×2 (09:00→21:13)
[2018-08-20] MEDS: FAMOTIDINE 20 MG TAB PO ×2 (09:33→21:13)
[2018-08-20] MEDS: AZITHROMYCIN 250 MG TAB PO (09:33)
[2018-08-20] MEDS: METHYLNALTREXONE 12 MG/0.6 ML VIAL SC (09:33)
[2018-08-20] MEDS: DOCUSATE SODIUM 100 MG CAP PO ×2 (09:33→21:13)
[2018-08-20] MEDS: HYDROXYUREA 500 MG CAP PO ×2 (09:34→21:18)
[2018-08-20] MEDS: ENOXAPARIN 30 MG/0.3 ML SYG SC (09:35)
[2018-08-20] MEDS: FOLIC ACID 1 MG TAB PO (09:42)
[2018-08-20] MEDS: PNEUMOCOCCAL VACCINE 0.5 ML INJ IM* (18:04)
[2018-08-21] MEDS: ONDANSETRON 4 MG INJ IV ×3 (02:02→22:52)
[2018-08-21] MEDS: DIPHENHYDRAMINE 50 MG INJ IV ×6 (02:05→22:51)
[2018-08-21] MEDS: morphine 10 MG INJ IV ×6 (02:07→22:52)
[2018-08-21 05:43] LABS: ADD MAN DIFF? NO
[2018-08-21 05:48] LABS: WHITE BLOOD COUNT 12.8 10^3/ul (4.8-10.8)
[2018-08-21 05:48] LABS: BASOPHIL # 0.1 10^3/ul (0.0-0.1); BASOPHILS % 0.9 % (0.0-2.0); EOSINOPHILS # 0.6 10^3/ul (0.0-0.5); EOSINOPHILS % 4.4 % (0.0-7.0); HEMATOCRIT 21.9 % (37.0-47.0); HEMOGLOBIN 7.5 g/dl (12.0-16.0); LYMPHOCYTES # 4.2 10^3/ul (0.8-2.9); LYMPHOCYTES % 32.4 % (15.0-51.0); MEAN CORPUSCULAR HEMOGLOBIN 29.8 pg (29.0-33.0); MEAN CORPUSCULAR HGB CONC 34.2 g/dl (32.0-37.0); MEAN CORPUSCULAR VOLUME 86.9 fl (82.0-101.0); MONOCYTE # 1.2 10^3/ul (0.3-0.9); MONOCYTES % 9.5 % (0.0-11.0); NEUTROPHIL # 6.7 10^3/ul (1.6-7.5); NEUTROPHILS % 51.9 % (39.0-77.0); NUCLEATED RED BLOOD CELLS # 0.1 10^3/ul (0.0-0.0); NUCLEATED RED BLOOD CELLS% 0.9 /100WBC (0.0-0.0); PLATELET COUNT 249 10^3/UL (140-415); RED BLOOD COUNT 2.52 10^6/ul (4.20-5.40); RED CELL DISTRIBUTION WIDTH 18.5 % (11.5-14.5)
[2018-08-21] MEDS: ENOXAPARIN 30 MG/0.3 ML SYG SC (10:41)
[2018-08-21] MEDS: HYDROXYUREA 500 MG CAP PO ×2 (10:41→20:09)
[2018-08-21] MEDS: METHYLNALTREXONE 12 MG/0.6 ML VIAL SC (10:42)
[2018-08-21] MEDS: DOCUSATE SODIUM 100 MG CAP PO ×2 (10:43→20:05)
[2018-08-21] MEDS: AZITHROMYCIN 250 MG TAB PO (10:43)
[2018-08-21] MEDS: PATIENT'S OWN MEDICATION PO ×3 (10:43→20:05)
[2018-08-21] MEDS: FOLIC ACID 1 MG TAB PO (10:43)
[2018-08-21] MEDS: FAMOTIDINE 20 MG TAB PO ×2 (10:43→20:05)
[2018-08-21] MEDS: SOD CHLORIDE 0.45% 1,000 ML IV (22:52)
[2018-08-22] MEDS: morphine 10 MG INJ IV ×6 (03:44→23:53)
[2018-08-22] MEDS: DIPHENHYDRAMINE 50 MG INJ IV ×6 (03:44→23:53)
[2018-08-22] MEDS: DOCUSATE SODIUM 100 MG CAP PO ×2 (07:56→21:16)
[2018-08-22] MEDS: FOLIC ACID 1 MG TAB PO (07:57)
[2018-08-22] MEDS: AZITHROMYCIN 250 MG TAB PO (07:57)
[2018-08-22] MEDS: FAMOTIDINE 20 MG TAB PO ×2 (07:57→21:16)
[2018-08-22] MEDS ORDERED: [UNRECOGNIZED DRUG - OTHER] XX (08:00)
[2018-08-22] MEDS: METHYLNALTREXONE 12 MG/0.6 ML VIAL SC (08:04)
[2018-08-22] MEDS: HYDROXYUREA 500 MG CAP PO ×2 (08:08→21:21)
[2018-08-22] MEDS: ENOXAPARIN 30 MG/0.3 ML SYG SC (08:08)
[2018-08-22] MEDS: PATIENT'S OWN MEDICATION PO ×2 (08:10→21:22)
[2018-08-22] MEDS: ONDANSETRON 4 MG INJ IV (15:46)
[2018-08-22 15:58] LABS: ADD MAN DIFF? NO
[2018-08-22 15:59] LABS: WHITE BLOOD COUNT 12.5 10^3/ul (4.8-10.8)
[2018-08-22 15:59] LABS: ABNORMAL IP MESSAGE 1; BASOPHIL # 0.1 10^3/ul (0.0-0.1); EOSINOPHILS # 0.7 10^3/ul (0.0-0.5); EOSINOPHILS % 5.3 % (0.0-7.0); HEMATOCRIT 24.4 % (37.0-47.0); HEMOGLOBIN 8.3 g/dl (12.0-16.0); LYMPHOCYTES # 5.5 10^3/ul (0.8-2.9); LYMPHOCYTES % 43.6 % (15.0-51.0); MEAN CORPUSCULAR HEMOGLOBIN 29.7 pg (29.0-33.0); MEAN CORPUSCULAR VOLUME 87.5 fl (82.0-101.0); MEAN PLATELET VOLUME 10.2 fl (7.4-10.4); MONOCYTE # 1.5 10^3/ul (0.3-0.9); MONOCYTES % 11.7 % (0.0-11.0); NEUTROPHIL # 4.7 10^3/ul (1.6-7.5); NEUTROPHILS % 37.8 % (39.0-77.0); NUCLEATED RED BLOOD CELLS # 0.1 10^3/ul (0.0-0.0); NUCLEATED RED BLOOD CELLS% 1.1 /100WBC (0.0-0.0); PLATELET COUNT 274 10^3/UL (140-415); RED BLOOD COUNT 2.79 10^6/ul (4.20-5.40); RED CELL DISTRIBUTION WIDTH 18.6 % (11.5-14.5)
[2018-08-22 16:09] LABS: POSITIVE DIFF @See below
[2018-08-22 16:31] LABS: ANION GAP 11 (5-13); BLOOD UREA NITROGEN 18 mg/dl (7-20); CALCIUM 8.7 mg/dl (8.4-10.2); CARBON DIOXIDE 25 mmol/L (21-31); CHLORIDE 103 mmol/L (97-110); Estimated GFR > 60 mL/min (>60); GLUCOSE 120 mg/dl (70-220); POTASSIUM 4.6 mmol/L (3.5-5.1); SODIUM 139 mmol/L (135-144)
[2018-08-23] MEDS: SOD CHLORIDE 0.45% 1,000 ML IV ×2 (02:56→22:30)
[2018-08-23] MEDS: DIPHENHYDRAMINE 50 MG INJ IV ×5 (03:56→22:26)
[2018-08-23] MEDS: morphine 10 MG INJ IV ×5 (03:57→22:26)
[2018-08-23 07:15] LABS: ADD MAN DIFF? NO
[2018-08-23 07:19] LABS: WHITE BLOOD COUNT 11.9 10^3/ul (4.8-10.8)
[2018-08-23 07:19] LABS: BASOPHIL # 0.1 10^3/ul (0.0-0.1); BASOPHILS % 0.9 % (0.0-2.0); EOSINOPHILS # 0.6 10^3/ul (0.0-0.5); EOSINOPHILS % 5.4 % (0.0-7.0); HEMATOCRIT 22.1 % (37.0-47.0); HEMOGLOBIN 7.4 g/dl (12.0-16.0); LYMPHOCYTES # 4.5 10^3/ul (0.8-2.9); LYMPHOCYTES % 38.2 % (15.0-51.0); MEAN CORPUSCULAR HEMOGLOBIN 29.2 pg (29.0-33.0); MEAN CORPUSCULAR HGB CONC 33.5 g/dl (32.0-37.0); MEAN CORPUSCULAR VOLUME 87.4 fl (82.0-101.0); MEAN PLATELET VOLUME 10.8 fl (7.4-10.4); MONOCYTE # 1.5 10^3/ul (0.3-0.9); MONOCYTES % 12.6 % (0.0-11.0); NEUTROPHILS % 42.1 % (39.0-77.0); NUCLEATED RED BLOOD CELLS # 0.1 10^3/ul (0.0-0.0); NUCLEATED RED BLOOD CELLS% 0.9 /100WBC (0.0-0.0); PLATELET COUNT 246 10^3/UL (140-415); RED BLOOD COUNT 2.53 10^6/ul (4.20-5.40); RED CELL DISTRIBUTION WIDTH 18.5 % (11.5-14.5)
[2018-08-23 07:39] LABS: ANION GAP 7 (5-13); BLOOD UREA NITROGEN 15 mg/dl (7-20); CALCIUM 8.4 mg/dl (8.4-10.2); CARBON DIOXIDE 28 mmol/L (21-31); CHLORIDE 103 mmol/L (97-110); CREATININE 0.76 mg/dl (0.44-1.00); Estimated GFR > 60 mL/min (>60); GLUCOSE 96 mg/dl (70-220); POTASSIUM 5.1 mmol/L (3.5-5.1); SODIUM 138 mmol/L (135-144)
[2018-08-23] MEDS: AZITHROMYCIN 250 MG TAB PO (09:00)
[2018-08-23] MEDS: DOCUSATE SODIUM 100 MG CAP PO ×2 (10:28→22:17)
[2018-08-23] MEDS: FOLIC ACID 1 MG TAB PO (10:28)
[2018-08-23] MEDS: FAMOTIDINE 20 MG TAB PO ×2 (10:29→22:17)
[2018-08-23] MEDS: METHYLNALTREXONE 12 MG/0.6 ML VIAL SC (10:29)
[2018-08-23] MEDS: PATIENT'S OWN MEDICATION PO ×2 (10:29→22:18)
[2018-08-23] MEDS: HYDROXYUREA 500 MG CAP PO ×2 (10:32→22:20)
[2018-08-23] MEDS: ENOXAPARIN 30 MG/0.3 ML SYG SC (10:33)
[2018-08-23] MEDS: ONDANSETRON 4 MG INJ IV (18:28)
== END 2018-08-23 23:40 | disposition home health service (06) | DRG 871 ==
LOC: E/R 05:18 → 2NE 08-15 17:34
PROC: 30233N1 Transfusion of Nonautologous Red Blood Cells into Peripheral Vein, Percutaneous Approach (ICD-10-PCS; principal; 2018-08-15)
DX: A41.9 Sepsis, unspecified organism (principal); D57.00 Hb-SS disease with crisis, unspecified; R74.0 Nonspecific elevation of levels of transaminase and lactic acid dehydrogenase [LDH]; E83.19 Other disorders of iron metabolism
CPT/HCPCS: 36415; 36430; 71045; 80048; 80053; 80202; 81003; 83605; 83690; 84484; 85025; 85610; 85730; 86644; 86850; 86900; 86901; 86920; 86945; 87040-91; 87081; 87086; 90732; 93005; 93971; 99285-25

== ENCOUNTER 2018-09-01 13:21 | Inpatient (IN) | payer OTHER ==
[2018-09-01 16:08] LABS: ABNORMAL IP MESSAGE 1; HEMATOCRIT 23.5 % (37.0-47.0); MEAN CORPUSCULAR HEMOGLOBIN 30.4 pg (29.0-33.0); MEAN CORPUSCULAR VOLUME 89.4 fl (82.0-101.0); MEAN PLATELET VOLUME 10.8 fl (7.4-10.4); NUCLEATED RED BLOOD CELLS% 1.6 /100WBC (0.0-0.0); PLATELET COUNT 400 10^3/UL (140-415); RED BLOOD COUNT 2.63 10^6/ul (4.20-5.40); RED CELL DISTRIBUTION WIDTH 20.2 % (11.5-14.5)
[2018-09-01 16:08] LABS: WHITE BLOOD COUNT 18.4 10^3/ul (4.8-10.8)
[2018-09-01 16:10] LABS: ADD MAN DIFF? YES; POSITIVE DIFF @See below
[2018-09-01 16:17] LABS: ALANINE AMINOTRANSFERASE 104 IU/L (13-69); ALBUMIN 4.3 g/dl (3.3-4.9); ALKALINE PHOSPHATASE 145 IU/L (42-121); ANION GAP 8 (5-13); ASPARTATE AMINO TRANSFERASE 116 IU/L (15-46); BILIRUBIN,INDIRECT 1.9 mg/dl (0-1.1); BILIRUBIN,TOTAL 1.9 mg/dl (0.2-1.3); BLOOD UREA NITROGEN 18 mg/dl (7-20); CARBON DIOXIDE 25 mmol/L (21-31); CHLORIDE 109 mmol/L (97-110); CREATININE 0.76 mg/dl (0.44-1.00); Estimated GFR > 60 mL/min (>60); GLUCOSE 101 mg/dl (70-220); POTASSIUM 4.8 mmol/L (3.5-5.1); SODIUM 142 mmol/L (135-144); TOTAL PROTEIN 8.6 g/dl (6.1-8.1)
[2018-09-01] MEDS: ONDANSETRON 4 MG INJ IV ×3 (16:17→22:10)
[2018-09-01] MEDS: morphine 4 MG/ML VIAL IV ×2 (16:17→18:13)
[2018-09-01 16:18] LABS: INR 1.07; PARTIAL THROMBOPLASTIN TIME 30.3 Sec (23.0-35.0); PT RATIO 1.1
[2018-09-01 16:25] LABS: LACTIC ACID 1.1 mmol/L (0.5-2.0)
[2018-09-01 16:26] LABS: TROPONIN-I < 0.012 ng/ml (0.000-0.120)
[2018-09-01 17:00] LABS: ANISOCYTOSIS 1+ (0-0); EOSINOPHILS % (M) 4 % (0-7); GIANT THROMBO% (M) 2 % (0-0); HYPOCHROMASIA 1+ (0-0); LYMPHOCYTES #M 2.9 10^3/ul (0.8-2.9); LYMPHOCYTES % (M) 16 % (15-51); MONOCYTE #M 1.6 10^3/ul (0.3-0.9); MONOCYTES % (M) 9 % (0-11); PLATELET ESTIMATE NORMAL; POIKILOCYTOSIS 2+ (0-0); POLYCHROMASIA 2+ (0-0); SEGMENTED NEUTROPHILS (M) % 71 % (39-77); SICKLE CELL 2+ (0-0); SMUDGE%M 2 % (0-0); TARGET CELLS 2+ (0-0)
[2018-09-01] MEDS: CEFEPIME 2GM/50 ML (PMX) 50 ML IVPB (18:13)
[2018-09-01] MEDS ORDERED: ONDANSETRON 4 MG INJ IV (18:30)
[2018-09-01] MEDS ORDERED: ACETAMINOPHEN 325 MG TAB PO (18:30)
[2018-09-01 18:42] LABS: ADD UMIC YES; UR ASCORBIC ACID NEGATIVE (NEGATIVE); UR BACTERIA FEW /HPF (NONE SEEN); UR BILIRUBIN (Dip) NEGATIVE (NEGATIVE); UR BLOOD (Dip) 1+ mg/dL (NEGATIVE); UR CLARITY CLEAR (CLEAR); UR COLOR YELLOW (YELLOW); UR GLUCOSE (Dip) NEGATIVE (NEGATIVE); UR KETONES (Dip) NEGATIVE (NEGATIVE); UR LEUKOCYTE ESTERASE (Dip) NEGATIVE Leu/ul (NEGATIVE); UR NITRITE (Dip) NEGATIVE (NEGATIVE); UR RBC 0 /HPF (0-5); UR SPECIFIC GRAVITY (Dip) 1.011 (1.003-1.030); UR SQUAMOUS EPITHELIAL CELL FEW /HPF (FEW); UR TOTAL PROTEIN (Dip) NEGATIVE (NEGATIVE); UR UROBILINOGEN (Dip) NEGATIVE (NEGATIVE); UR WBC 2 /HPF (0-5)
[2018-09-01] MEDS: SODIUM CHLORIDE 0.9% 1L BAG IV* (18:42)
[2018-09-01] MEDS: VANCOMYCIN 1 GM (PMX) 250 ML IVPB (19:10)
[2018-09-01] MEDS ORDERED: oxyCODONE 5 MG TAB PO (22:00)
[2018-09-01] MEDS ORDERED: VANCOMYCIN IV PER PHARMACY XX (22:00)
[2018-09-01] MEDS: SOD CHLORIDE 0.45% 1,000 ML IV (22:09)
[2018-09-01] MEDS: DIPHENHYDRAMINE 50 MG INJ IV (22:10)
[2018-09-01] MEDS: morphine 10 MG INJ IV (22:19)
[2018-09-02] MEDS: DIPHENHYDRAMINE 50 MG INJ IV ×6 (02:10→22:20)
[2018-09-02] MEDS: ONDANSETRON 4 MG INJ IV ×5 (02:10→18:17)
[2018-09-02] MEDS: morphine 10 MG INJ IV ×6 (02:13→22:20)
[2018-09-02] MEDS: VANCOMYCIN 1 GM 250 ML IVPB ×2 (04:52→16:03)
[2018-09-02 05:21] LABS: ADD MAN DIFF? NO
[2018-09-02 05:23] LABS: BASOPHIL # 0.1 10^3/ul (0.0-0.1); BASOPHILS % 0.7 % (0.0-2.0); EOSINOPHILS # 0.6 10^3/ul (0.0-0.5); EOSINOPHILS % 3.7 % (0.0-7.0); HEMATOCRIT 22.7 % (37.0-47.0); HEMOGLOBIN 7.6 g/dl (12.0-16.0); LYMPHOCYTES # 4.5 10^3/ul (0.8-2.9); LYMPHOCYTES % 26.1 % (15.0-51.0); MEAN CORPUSCULAR HEMOGLOBIN 29.8 pg (29.0-33.0); MEAN CORPUSCULAR HGB CONC 33.5 g/dl (32.0-37.0); MONOCYTE # 1.2 10^3/ul (0.3-0.9); MONOCYTES % 6.7 % (0.0-11.0); NEUTROPHIL # 10.7 10^3/ul (1.6-7.5); NEUTROPHILS % 61.7 % (39.0-77.0); NUCLEATED RED BLOOD CELLS # 0.3 10^3/ul (0.0-0.0); NUCLEATED RED BLOOD CELLS% 1.7 /100WBC (0.0-0.0); PLATELET COUNT 367 10^3/UL (140-415); RED BLOOD COUNT 2.55 10^6/ul (4.20-5.40); RED CELL DISTRIBUTION WIDTH 20.5 % (11.5-14.5)
[2018-09-02 05:23] LABS: WHITE BLOOD COUNT 17.3 10^3/ul (4.8-10.8)
[2018-09-02 06:05] LABS: ANION GAP 10 (5-13); BLOOD UREA NITROGEN 16 mg/dl (7-20); CALCIUM 8.5 mg/dl (8.4-10.2); CARBON DIOXIDE 23 mmol/L (21-31); CHLORIDE 107 mmol/L (97-110); CREATININE 0.86 mg/dl (0.44-1.00); Estimated GFR > 60 mL/min (>60); GLUCOSE 130 mg/dl (70-220); POTASSIUM 4.5 mmol/L (3.5-5.1); SODIUM 140 mmol/L (135-144)
[2018-09-02] MEDS: CEFEPIME 1GM/50 ML (PMX) 50 ML IVPB ×2 (08:40→21:35)
[2018-09-02] MEDS: SOD CHLORIDE 0.45% 1,000 ML IV ×2 (12:18→16:04)
[2018-09-02] MEDS ORDERED: ACETAMINOPHEN 500 MG TAB PO (12:30)
[2018-09-02] MEDS ORDERED: NON-FORMULARY/PATIENT OWN MED (Deferasirox (Jadenu) 360 MG) XX (21:00)
[2018-09-02] MEDS: DOCUSATE SODIUM 100 MG CAP PO (21:35)
[2018-09-02] MEDS: HYDROXYUREA 500 MG CAP PO (21:44)
[2018-09-03] MEDS: ONDANSETRON 4 MG INJ IV ×2 (02:16→23:01)
[2018-09-03] MEDS: morphine 10 MG INJ IV ×6 (02:16→23:01)
[2018-09-03] MEDS: DIPHENHYDRAMINE 50 MG INJ IV ×6 (02:16→23:01)
[2018-09-03] MEDS: VANCOMYCIN 1 GM 250 ML IVPB ×2 (04:48→17:13)
[2018-09-03] MEDS: CEFEPIME 1GM/50 ML (PMX) 50 ML IVPB (09:06)
[2018-09-03] MEDS: FOLIC ACID 1 MG TAB PO (09:06)
[2018-09-03] MEDS: DOCUSATE SODIUM 100 MG CAP PO ×2 (09:06→22:01)
[2018-09-03] MEDS: AZITHROMYCIN 250 MG TAB PO (09:06)
[2018-09-03] MEDS: HYDROXYUREA 500 MG CAP PO ×2 (09:08→22:06)
[2018-09-03 10:19] LABS: AMPHETAMINE/METHAMPHETAMINE Negative (NEGATIVE); BARBITURATES Negative (NEGATIVE); BENZODIAZEPINES Negative (NEGATIVE); CANNABINOIDS Negative (NEGATIVE); COCAINE Negative (NEGATIVE); OPIATES Positive (NEGATIVE)
[2018-09-03] MEDS: MEROPENEM 1 GM/50ML(PMX) 50 ML IVPB ×2 (14:17→22:01)
[2018-09-03 15:46] LABS: VANCOMYCIN,TROUGH 14.2 ug/ml (10.0-20.0)
[2018-09-03] MEDS: SOD CHLORIDE 0.45% 1,000 ML IV (17:14)
[2018-09-04] MEDS: DIPHENHYDRAMINE 50 MG INJ IV ×5 (03:10→23:47)
[2018-09-04] MEDS: morphine 10 MG INJ IV ×6 (03:10→23:47)
[2018-09-04] MEDS: ONDANSETRON 4 MG INJ IV ×3 (03:10→23:47)
[2018-09-04] MEDS: MEROPENEM 1 GM/50ML(PMX) 50 ML IVPB ×3 (05:24→20:59)
[2018-09-04] MEDS: VANCOMYCIN 750 MG (PMX) 250 ML IVPB (06:06)
[2018-09-04] MEDS: [UNRECOGNIZED DRUG - OTHER] XX (07:00)
[2018-09-04] MEDS: SOD CHLORIDE 0.45% 1,000 ML IV (07:12)
[2018-09-04] MEDS: AZITHROMYCIN 250 MG TAB PO (09:08)
[2018-09-04] MEDS: DOCUSATE SODIUM 100 MG CAP PO ×2 (09:08→20:59)
[2018-09-04] MEDS: FOLIC ACID 1 MG TAB PO (09:08)
[2018-09-04] MEDS: HYDROXYUREA 500 MG CAP PO ×2 (09:15→21:10)
[2018-09-04 11:42] LABS: ABNORMAL IP MESSAGE 1; HEMATOCRIT 19.5 % (37.0-47.0); MEAN CORPUSCULAR HEMOGLOBIN 29.7 pg (29.0-33.0); MEAN CORPUSCULAR HGB CONC 33.3 g/dl (32.0-37.0); MEAN PLATELET VOLUME 10.9 fl (7.4-10.4); NUCLEATED RED BLOOD CELLS% 1.6 /100WBC (0.0-0.0); PLATELET COUNT 284 10^3/UL (140-415); RED BLOOD COUNT 2.19 10^6/ul (4.20-5.40); RED CELL DISTRIBUTION WIDTH 19.5 % (11.5-14.5)
[2018-09-04 11:42] LABS: WHITE BLOOD COUNT 14.4 10^3/ul (4.8-10.8)
[2018-09-04 11:48] LABS: ADD MAN DIFF? YES; POSITIVE DIFF @See below
[2018-09-04 11:50] LABS: HEMOGLOBIN 6.5 g/dl (12.0-16.0)
[2018-09-04 12:02] LABS: ANION GAP 9 (5-13); BLOOD UREA NITROGEN 14 mg/dl (7-20); CALCIUM 8.5 mg/dl (8.4-10.2); CARBON DIOXIDE 25 mmol/L (21-31); CHLORIDE 107 mmol/L (97-110); CREATININE 0.83 mg/dl (0.44-1.00); Estimated GFR > 60 mL/min (>60); GLUCOSE 90 mg/dl (70-220); POTASSIUM 4.9 mmol/L (3.5-5.1); SODIUM 141 mmol/L (135-144)
[2018-09-04 13:38] LABS: ANISOCYTOSIS 1+ (0-0); BAND NEUTROPHILS #M 0.4 10^3/ul (0.0-0.6); BAND NEUTROPHILS % (M) 3 % (0-4); BASOPHIL #M 0.2 10^3/ul (0.0-0.0); BASOPHILS % (M) 2 % (0-2); BURR CELLS 1+ (0-0); EOSINOPHILS % (M) 5 % (0-7); ERYTHROBLAST% (NRBC) (M) 3 % (0-0); GIANT THROMBO% (M) 1 % (0-0); HYPOCHROMASIA 1+ (0-0); LYMPHOCYTES % (M) 21 % (15-51); MONOCYTE #M 1.2 10^3/ul (0.3-0.9); MONOCYTES % (M) 9 % (0-11); MYELOCYTES #M 0.1 10^3/ul (0.0-0.0); MYELOCYTES % (M) 1 % (0-0); PLATELET ESTIMATE NORMAL; POIKILOCYTOSIS 1+ (0-0); POLYCHROMASIA 2+ (0-0); SEG NEUT #M 8.6 10^3/ul (1.6-7.5); SEGMENTED NEUTROPHILS (M) % 59 % (39-77); SICKLE CELL 1+ (0-0); SMUDGE%M 8 % (0-0); TARGET CELLS 1+ (0-0)
[2018-09-04 15:19] LABS: IMMEDIATE SPIN CROSSMATCH 1 1
[2018-09-04] MEDS: ACETAMINOPHEN 500 MG TAB PO (15:34)
[2018-09-04] MEDS: SOD CHLORIDE 0.9% 250 ML IV* (15:42)
[2018-09-04] MEDS: CLOTRIMAZOLE 1% 45 GM VAG CR VAG (21:11)
[2018-09-04] MEDS: ZYVOX 600 MG TAB PO (21:11)
[2018-09-04] MEDS: [UNRECOGNIZED DRUG - OTHER] PO (23:48)
[2018-09-05] MEDS: SOD CHLORIDE 0.45% 1,000 ML IV (02:08)
[2018-09-05] MEDS: morphine 10 MG INJ IV ×4 (04:08→21:02)
[2018-09-05] MEDS: DIPHENHYDRAMINE 50 MG INJ IV ×6 (04:08→21:01)
[2018-09-05] MEDS: MEROPENEM 1 GM/50ML(PMX) 50 ML IVPB ×3 (06:22→21:14)
[2018-09-05 09:29] LABS: ADD MAN DIFF? NO
[2018-09-05 09:30] LABS: BASOPHIL # 0.1 10^3/ul (0.0-0.1); BASOPHILS % 0.8 % (0.0-2.0); EOSINOPHILS # 0.8 10^3/ul (0.0-0.5); EOSINOPHILS % 4.7 % (0.0-7.0); HEMATOCRIT 21.4 % (37.0-47.0); HEMOGLOBIN 7.5 g/dl (12.0-16.0); LYMPHOCYTES % 17.1 % (15.0-51.0); MEAN CORPUSCULAR HEMOGLOBIN 30.1 pg (29.0-33.0); MEAN CORPUSCULAR VOLUME 85.9 fl (82.0-101.0); MEAN PLATELET VOLUME 10.5 fl (7.4-10.4); MONOCYTE # 1.3 10^3/ul (0.3-0.9); MONOCYTES % 7.5 % (0.0-11.0); NEUTROPHIL # 11.9 10^3/ul (1.6-7.5); NEUTROPHILS % 68.1 % (39.0-77.0); NUCLEATED RED BLOOD CELLS # 0.2 10^3/ul (0.0-0.0); NUCLEATED RED BLOOD CELLS% 1.1 /100WBC (0.0-0.0); PLATELET COUNT 303 10^3/UL (140-415); RED BLOOD COUNT 2.49 10^6/ul (4.20-5.40); RED CELL DISTRIBUTION WIDTH 18.4 % (11.5-14.5)
[2018-09-05 09:30] LABS: WHITE BLOOD COUNT 17.5 10^3/ul (4.8-10.8)
[2018-09-05] MEDS: [UNRECOGNIZED DRUG - OTHER] PO ×4 (09:44→21:01)
[2018-09-05] MEDS: DOCUSATE SODIUM 100 MG CAP PO ×2 (09:45→21:01)
[2018-09-05] MEDS: FOLIC ACID 1 MG TAB PO (09:45)
[2018-09-05] MEDS: ZYVOX 600 MG TAB PO ×2 (09:45→21:01)
[2018-09-05] MEDS: AZITHROMYCIN 250 MG TAB PO (09:45)
[2018-09-05] MEDS: HYDROXYUREA 500 MG CAP PO ×2 (09:48→21:12)
[2018-09-05 09:51] LABS: ANION GAP 7 (5-13); BLOOD UREA NITROGEN 16 mg/dl (7-20); CALCIUM 8.8 mg/dl (8.4-10.2); CARBON DIOXIDE 27 mmol/L (21-31); CHLORIDE 105 mmol/L (97-110); CREATININE 0.87 mg/dl (0.44-1.00); Estimated GFR > 60 mL/min (>60); GLUCOSE 101 mg/dl (70-220); POTASSIUM 4.4 mmol/L (3.5-5.1); SODIUM 139 mmol/L (135-144)
[2018-09-05] MEDS: ONDANSETRON 4 MG INJ IV (12:53)
[2018-09-05] MEDS: CLOTRIMAZOLE 1% 45 GM VAG CR VAG (21:02)
[2018-09-06] MEDS: ONDANSETRON 4 MG INJ IV ×6 (01:07→21:34)
[2018-09-06] MEDS: DIPHENHYDRAMINE 50 MG INJ IV ×6 (01:07→21:34)
[2018-09-06] MEDS: morphine 10 MG INJ IV ×6 (01:08→21:34)
[2018-09-06] MEDS: MEROPENEM 1 GM/50ML(PMX) 50 ML IVPB ×3 (05:15→21:33)
[2018-09-06] MEDS: SOD CHLORIDE 0.45% 1,000 ML IV (05:15)
[2018-09-06 06:07] LABS: ADD MAN DIFF? NO
[2018-09-06 06:15] LABS: BASOPHIL # 0.2 10^3/ul (0.0-0.1); BASOPHILS % 1.4 % (0.0-2.0); EOSINOPHILS # 0.8 10^3/ul (0.0-0.5); EOSINOPHILS % 7.4 % (0.0-7.0); HEMATOCRIT 22.9 % (37.0-47.0); HEMOGLOBIN 7.5 g/dl (12.0-16.0); LYMPHOCYTES # 4.6 10^3/ul (0.8-2.9); LYMPHOCYTES % 41.2 % (15.0-51.0); MEAN CORPUSCULAR HEMOGLOBIN 29.5 pg (29.0-33.0); MEAN CORPUSCULAR HGB CONC 32.8 g/dl (32.0-37.0); MEAN CORPUSCULAR VOLUME 90.2 fl (82.0-101.0); MEAN PLATELET VOLUME 10.9 fl (7.4-10.4); MONOCYTE # 1.3 10^3/ul (0.3-0.9); MONOCYTES % 11.4 % (0.0-11.0); NEUTROPHIL # 4.2 10^3/ul (1.6-7.5); NEUTROPHILS % 38.1 % (39.0-77.0); NUCLEATED RED BLOOD CELLS # 0.1 10^3/ul (0.0-0.0); NUCLEATED RED BLOOD CELLS% 1.3 /100WBC (0.0-0.0); PLATELET COUNT 322 10^3/UL (140-415); RED BLOOD COUNT 2.54 10^6/ul (4.20-5.40); RED CELL DISTRIBUTION WIDTH 19.4 % (11.5-14.5)
[2018-09-06 06:15] LABS: WHITE BLOOD COUNT 11.2 10^3/ul (4.8-10.8)
[2018-09-06 06:37] LABS: ANION GAP 7 (5-13); BLOOD UREA NITROGEN 16 mg/dl (7-20); CALCIUM 8.8 mg/dl (8.4-10.2); CARBON DIOXIDE 28 mmol/L (21-31); CHLORIDE 105 mmol/L (97-110); CREATININE 0.84 mg/dl (0.44-1.00); Estimated GFR > 60 mL/min (>60); GLUCOSE 114 mg/dl (70-220); POTASSIUM 4.6 mmol/L (3.5-5.1); SODIUM 140 mmol/L (135-144)
[2018-09-06] MEDS: ZYVOX 600 MG TAB PO ×2 (09:11→21:32)
[2018-09-06] MEDS: DOCUSATE SODIUM 100 MG CAP PO ×2 (09:11→21:32)
[2018-09-06] MEDS: AZITHROMYCIN 250 MG TAB PO (09:11)
[2018-09-06] MEDS: HYDROXYUREA 500 MG CAP PO ×2 (09:11→21:43)
[2018-09-06] MEDS: [UNRECOGNIZED DRUG - OTHER] PO ×4 (09:11→21:33)
[2018-09-06] MEDS: FOLIC ACID 1 MG TAB PO (09:11)
[2018-09-06] MEDS ORDERED: ARTIFICIAL TEARS 15 ML OPH BOTH EYES (13:00)
[2018-09-06] MEDS: CLOTRIMAZOLE 1% 45 GM VAG CR VAG (21:33)
[2018-09-07] MEDS: ONDANSETRON 4 MG INJ IV ×6 (01:34→22:29)
[2018-09-07] MEDS: morphine 10 MG INJ IV ×6 (01:34→22:30)
[2018-09-07] MEDS: DIPHENHYDRAMINE 50 MG INJ IV ×6 (01:34→22:30)
[2018-09-07] MEDS: MEROPENEM 1 GM/50ML(PMX) 50 ML IVPB ×3 (05:27→21:28)
[2018-09-07] MEDS: SOD CHLORIDE 0.45% 1,000 ML IV (05:27)
[2018-09-07] MEDS: FOLIC ACID 1 MG TAB PO (08:38)
[2018-09-07] MEDS: AZITHROMYCIN 250 MG TAB PO (08:38)
[2018-09-07] MEDS: [UNRECOGNIZED DRUG - OTHER] PO ×4 (08:38→22:55)
[2018-09-07] MEDS: DOCUSATE SODIUM 100 MG CAP PO ×2 (08:38→21:28)
[2018-09-07] MEDS: ZYVOX 600 MG TAB PO (08:38)
[2018-09-07] MEDS: HYDROXYUREA 500 MG CAP PO ×2 (08:40→21:28)
[2018-09-07 10:46] LABS: ADD MAN DIFF? NO
[2018-09-07 10:48] LABS: WHITE BLOOD COUNT 12.3 10^3/ul (4.8-10.8)
[2018-09-07 10:48] LABS: ABNORMAL IP MESSAGE 1; BASOPHIL # 0.2 10^3/ul (0.0-0.1); BASOPHILS % 1.3 % (0.0-2.0); EOSINOPHILS # 1.1 10^3/ul (0.0-0.5); EOSINOPHILS % 8.9 % (0.0-7.0); HEMATOCRIT 22.5 % (37.0-47.0); HEMOGLOBIN 7.6 g/dl (12.0-16.0); LYMPHOCYTES # 5.2 10^3/ul (0.8-2.9); LYMPHOCYTES % 42.3 % (15.0-51.0); MEAN CORPUSCULAR HEMOGLOBIN 29.7 pg (29.0-33.0); MEAN CORPUSCULAR HGB CONC 33.8 g/dl (32.0-37.0); MEAN CORPUSCULAR VOLUME 87.9 fl (82.0-101.0); MEAN PLATELET VOLUME 10.3 fl (7.4-10.4); MONOCYTE # 1.5 10^3/ul (0.3-0.9); MONOCYTES % 11.9 % (0.0-11.0); NEUTROPHIL # 4.3 10^3/ul (1.6-7.5); NEUTROPHILS % 34.9 % (39.0-77.0); NUCLEATED RED BLOOD CELLS # 0.1 10^3/ul (0.0-0.0); NUCLEATED RED BLOOD CELLS% 1.1 /100WBC (0.0-0.0); PLATELET COUNT 331 10^3/UL (140-415); RED BLOOD COUNT 2.56 10^6/ul (4.20-5.40); RED CELL DISTRIBUTION WIDTH 18.6 % (11.5-14.5)
[2018-09-07 10:55] LABS: POSITIVE DIFF @See below
[2018-09-07 11:03] LABS: ANION GAP 9 (5-13); BLOOD UREA NITROGEN 20 mg/dl (7-20); CARBON DIOXIDE 28 mmol/L (21-31); CHLORIDE 103 mmol/L (97-110); CREATININE 0.89 mg/dl (0.44-1.00); Estimated GFR > 60 mL/min (>60); GLUCOSE 92 mg/dl (70-220); POTASSIUM 5.1 mmol/L (3.5-5.1); SODIUM 140 mmol/L (135-144)
[2018-09-07] MEDS: ARTIFICIAL TEARS 15 ML OPH BOTH EYES ×2 (15:20→22:56)
[2018-09-07] MEDS: CLOTRIMAZOLE 1% 45 GM VAG CR VAG (21:29)
[2018-09-07] MEDS: ZOLPIDEM 5 MG TAB PO (22:36)
[2018-09-08] MEDS: SOD CHLORIDE 0.45% 1,000 ML IV ×2 (02:00→16:29)
[2018-09-08] MEDS: ONDANSETRON 4 MG INJ IV ×4 (02:25→20:31)
[2018-09-08] MEDS: DIPHENHYDRAMINE 50 MG INJ IV ×5 (02:25→20:31)
[2018-09-08] MEDS: morphine 10 MG INJ IV ×5 (02:26→20:32)
[2018-09-08 05:20] LABS: WHITE BLOOD COUNT 11.4 10^3/ul (4.8-10.8)
[2018-09-08 05:20] LABS: HEMATOCRIT 24.2 % (37.0-47.0); MEAN CORPUSCULAR HGB CONC 33.1 g/dl (32.0-37.0); MEAN CORPUSCULAR VOLUME 87.7 fl (82.0-101.0); MEAN PLATELET VOLUME 10.7 fl (7.4-10.4); NUCLEATED RED BLOOD CELLS% 1.1 /100WBC (0.0-0.0); PLATELET COUNT 371 10^3/UL (140-415); RED BLOOD COUNT 2.76 10^6/ul (4.20-5.40); RED CELL DISTRIBUTION WIDTH 18.5 % (11.5-14.5)
[2018-09-08 05:21] LABS: ADD MAN DIFF? YES; POSITIVE DIFF @See below
[2018-09-08 06:02] LABS: ALANINE AMINOTRANSFERASE 102 IU/L (13-69); ALBUMIN 4.3 g/dl (3.3-4.9); ALKALINE PHOSPHATASE 139 IU/L (42-121); ASPARTATE AMINO TRANSFERASE 139 IU/L (15-46); BILIRUBIN,INDIRECT 2.2 mg/dl (0-1.1); BILIRUBIN,TOTAL 2.2 mg/dl (0.2-1.3); TOTAL PROTEIN 8.3 g/dl (6.1-8.1)
[2018-09-08 06:22] LABS: IRON 187 ug/dl (35-150)
[2018-09-08] MEDS: MEROPENEM 1 GM/50ML(PMX) 50 ML IVPB (06:24)
[2018-09-08] MEDS: BISACODYL (EC) 5 MG TAB PO ×2 (06:25→12:38)
[2018-09-08 06:40] LABS: % IRON SATURATION 82 % SAT (22-52); TOTAL IRON BINDING CAPACITY 227 ug/dl (241-421)
[2018-09-08 07:07] LABS: ANISOCYTOSIS 1+ (0-0); BASOPHIL #M 0.2 10^3/ul (0.0-0.0); BASOPHILS % (M) 2 % (0-2); BURR CELLS 1+ (0-0); EOSINOPHILS % (M) 4 % (0-7); ERYTHROBLAST% (NRBC) (M) 2 % (0-0); GIANT THROMBO% (M) 9 % (0-0); LYMPHOCYTES #M 4.6 10^3/ul (0.8-2.9); LYMPHOCYTES % (M) 41 % (15-51); MONOCYTES % (M) 18 % (0-11); PLATELET ESTIMATE NORMAL; POIKILOCYTOSIS 1+ (0-0); POLYCHROMASIA 1+ (0-0); SEGMENTED NEUTROPHILS (M) % 35 % (39-77); SICKLE CELL 1+ (0-0); SMUDGE%M 10 % (0-0); TARGET CELLS 1+ (0-0)
[2018-09-08] MEDS: FOLIC ACID 1 MG TAB PO (12:37)
[2018-09-08] MEDS: AZITHROMYCIN 250 MG TAB PO (12:37)
[2018-09-08] MEDS: DOCUSATE SODIUM 100 MG CAP PO ×2 (12:38→20:32)
[2018-09-08] MEDS: HYDROXYUREA 500 MG CAP PO ×2 (12:49→20:43)
[2018-09-08] MEDS: [UNRECOGNIZED DRUG - OTHER] PO ×3 (12:56→22:31)
[2018-09-08] MEDS: CLOTRIMAZOLE 1% 45 GM VAG CR VAG (20:33)
[2018-09-09] MEDS: DIPHENHYDRAMINE 50 MG INJ IV ×6 (00:44→20:44)
[2018-09-09] MEDS: ONDANSETRON 4 MG INJ IV ×6 (00:45→20:51)
[2018-09-09] MEDS: morphine 10 MG INJ IV ×6 (00:46→20:44)
[2018-09-09] MEDS: DOCUSATE SODIUM 100 MG CAP PO ×2 (08:39→21:03)
[2018-09-09] MEDS: AZITHROMYCIN 250 MG TAB PO (08:39)
[2018-09-09] MEDS: BISACODYL (EC) 5 MG TAB PO (08:39)
[2018-09-09] MEDS: FOLIC ACID 1 MG TAB PO (08:39)
[2018-09-09] MEDS: HYDROXYUREA 500 MG CAP PO ×2 (08:57→20:43)
[2018-09-09] MEDS: [UNRECOGNIZED DRUG - OTHER] PO ×2 (09:02→16:40)
[2018-09-09 14:57] LABS: HEMATOCRIT 23.2 % (37.0-47.0); HEMOGLOBIN 7.5 g/dl (12.0-16.0)
[2018-09-09] MEDS: CLOTRIMAZOLE 1% 45 GM VAG CR VAG (20:41)
[2018-09-09] MEDS: HEPARIN (100 UNITS/ML) 5 ML SYG CATHETER (20:43)
== END 2018-09-09 22:45 | disposition home health service (06) | DRG 872 ==
LOC: E/R 13:21 → 2NE 18:25
PROC: 30233N1 Transfusion of Nonautologous Red Blood Cells into Peripheral Vein, Percutaneous Approach (ICD-10-PCS; principal; 2018-09-04)
DX: A41.9 Sepsis, unspecified organism (principal); N39.0 Urinary tract infection, site not specified; D57.1 Sickle-cell disease without crisis; B96.20 Unspecified Escherichia coli [E. coli] as the cause of diseases classified elsewhere; B95.2 Enterococcus as the cause of diseases classified elsewhere; E83.19 Other disorders of iron metabolism
CPT/HCPCS: 36415; 36430; 71045; 74176; 80048; 80053; 80076; 80202; 80307; 81001; 82728; 83540; 83605; 84145; 84484; 85014; 85018; 85025; 85610; 85730; 86644; 86850; 86900; 86901; 86920; 86945; 87040-91; 87081; 87086; 93005; 96374; 96375; 96376; 99285-25

== ENCOUNTER 2018-09-20 05:37 | Inpatient (IN) | payer OTHER ==
[2018-09-20] MEDS: OXYCODONE/ACETAMINOPHEN (5/325) TAB PO (07:11)
[2018-09-20] MEDS: SOD CHLORIDE 0.9% 1,000 ML IV ×2 (07:11→13:24)
[2018-09-20] MEDS: ONDANSETRON 4 MG INJ IV ×2 (07:11→13:46)
[2018-09-20 08:01] LABS: ADD MAN DIFF? NO
[2018-09-20 08:06] LABS: WHITE BLOOD COUNT 13.9 10^3/ul (4.8-10.8)
[2018-09-20 08:06] LABS: BASOPHIL # 0.1 10^3/ul (0.0-0.1); BASOPHILS % 0.9 % (0.0-2.0); EOSINOPHILS # 0.4 10^3/ul (0.0-0.5); EOSINOPHILS % 2.9 % (0.0-7.0); HEMATOCRIT 22.3 % (37.0-47.0); HEMOGLOBIN 7.1 g/dl (12.0-16.0); LYMPHOCYTES # 2.5 10^3/ul (0.8-2.9); LYMPHOCYTES % 18.1 % (15.0-51.0); MEAN CORPUSCULAR HEMOGLOBIN 29.5 pg (29.0-33.0); MEAN CORPUSCULAR HGB CONC 31.8 g/dl (32.0-37.0); MEAN CORPUSCULAR VOLUME 92.5 fl (82.0-101.0); MEAN PLATELET VOLUME 10.8 fl (7.4-10.4); MONOCYTE # 1.5 10^3/ul (0.3-0.9); MONOCYTES % 10.6 % (0.0-11.0); NEUTROPHIL # 9.3 10^3/ul (1.6-7.5); NEUTROPHILS % 66.6 % (39.0-77.0); NUCLEATED RED BLOOD CELLS # 0.2 10^3/ul (0.0-0.0); NUCLEATED RED BLOOD CELLS% 1.3 /100WBC (0.0-0.0); PLATELET COUNT 343 10^3/UL (140-415); RED BLOOD COUNT 2.41 10^6/ul (4.20-5.40); RED CELL DISTRIBUTION WIDTH 20.4 % (11.5-14.5)
[2018-09-20 08:22] LABS: ALANINE AMINOTRANSFERASE 53 IU/L (13-69); ALBUMIN 3.9 g/dl (3.3-4.9); ALBUMIN/GLOBULIN RATIO 1.05; ALKALINE PHOSPHATASE 149 IU/L (42-121); ANION GAP 8 (5-13); ASPARTATE AMINO TRANSFERASE 66 IU/L (15-46); BILIRUBIN,INDIRECT 1.9 mg/dl (0-1.1); BILIRUBIN,TOTAL 1.9 mg/dl (0.2-1.3); BLOOD UREA NITROGEN 15 mg/dl (7-20); CALCIUM 8.4 mg/dl (8.4-10.2); CARBON DIOXIDE 26 mmol/L (21-31); CHLORIDE 109 mmol/L (97-110); CREATININE 1.02 mg/dl (0.44-1.00); Estimated GFR > 60 mL/min (>60); GLUCOSE 110 mg/dl (70-220); LIPASE 81 U/L (23-300); POTASSIUM 4.6 mmol/L (3.5-5.1); SODIUM 143 mmol/L (135-144); TOTAL PROTEIN 7.6 g/dl (6.1-8.1)
[2018-09-20] MEDS: morphine 4 MG/ML VIAL IV (08:27)
[2018-09-20] MEDS: METOCLOPRAMIDE 10 MG INJ IV (08:27)
[2018-09-20 08:52] LABS: ADD UMIC YES; UR ASCORBIC ACID NEGATIVE (NEGATIVE); UR BACTERIA FEW /HPF (NONE SEEN); UR BILIRUBIN (Dip) NEGATIVE (NEGATIVE); UR BLOOD (Dip) 2+ mg/dL (NEGATIVE); UR CLARITY SLIGHTLY CLOUDY (CLEAR); UR COLOR YELLOW (YELLOW); UR GLUCOSE (Dip) NEGATIVE (NEGATIVE); UR KETONES (Dip) NEGATIVE (NEGATIVE); UR LEUKOCYTE ESTERASE (Dip) 3+ Leu/ul (NEGATIVE); UR NITRITE (Dip) NEGATIVE (NEGATIVE); UR RBC 1 /HPF (0-5); UR SPECIFIC GRAVITY (Dip) 1.011 (1.003-1.030); UR TOTAL PROTEIN (Dip) NEGATIVE (NEGATIVE); UR UROBILINOGEN (Dip) NEGATIVE (NEGATIVE); UR WBC 84 /HPF (0-5)
[2018-09-20] MEDS: CEFEPIME 1GM/50 ML (PMX) 50 ML IVPB (09:18)
[2018-09-20] MEDS ORDERED: METOCLOPRAMIDE 10 MG INJ IV (13:30)
[2018-09-20] MEDS ORDERED: NACL 0.9% 3 ML SYG IV (13:30)
[2018-09-20] MEDS ORDERED: OXYCODONE/ACETAMINOPHEN (10/325) TAB PO (13:30)
[2018-09-20] MEDS ORDERED: morphine 2 MG INJ IV (13:30)
[2018-09-20] MEDS: DIPHENHYDRAMINE 50 MG INJ IV ×4 (13:48→22:23)
[2018-09-20] MEDS: morphine 10 MG INJ IV ×3 (13:49→22:23)
[2018-09-20] MEDS: MEROPENEM 1 GM/50ML(PMX) 50 ML IVPB ×2 (15:49→22:14)
[2018-09-20] MEDS: morphine 2 MG INJ IV (17:12)
[2018-09-20] MEDS ORDERED: CEFEPIME 1GM/50 ML (PMX) 50 ML IVPB (21:00)
[2018-09-20] MEDS: DEXTROSE 5%-0.45% NACL 1,000 ML IV (21:28)
[2018-09-20] MEDS: ACETAMINOPHEN 325 MG TAB PO (21:28)
[2018-09-20 22:02] LABS: IMMEDIATE SPIN CROSSMATCH 1 1
[2018-09-20] MEDS: SOD CHLORIDE 0.9% 250 ML IV* (22:13)
[2018-09-21] MEDS: MEROPENEM 1 GM/50ML(PMX) 50 ML IVPB ×4 (02:09→22:24)
[2018-09-21] MEDS: morphine 10 MG INJ IV ×6 (02:28→22:44)
[2018-09-21] MEDS: DIPHENHYDRAMINE 50 MG INJ IV ×6 (02:29→22:45)
[2018-09-21] MEDS: ENOXAPARIN 30 MG/0.3 ML SYG SC (08:36)
[2018-09-21 09:38] LABS: ADD MAN DIFF? NO
[2018-09-21 09:48] LABS: WHITE BLOOD COUNT 13.1 10^3/ul (4.8-10.8)
[2018-09-21 09:48] LABS: BASOPHIL # 0.1 10^3/ul (0.0-0.1); EOSINOPHILS # 0.7 10^3/ul (0.0-0.5); EOSINOPHILS % 5.7 % (0.0-7.0); HEMATOCRIT 23.9 % (37.0-47.0); LYMPHOCYTES # 3.9 10^3/ul (0.8-2.9); LYMPHOCYTES % 29.9 % (15.0-51.0); MEAN CORPUSCULAR HEMOGLOBIN 30.2 pg (29.0-33.0); MEAN CORPUSCULAR HGB CONC 33.5 g/dl (32.0-37.0); MEAN CORPUSCULAR VOLUME 90.2 fl (82.0-101.0); MEAN PLATELET VOLUME 10.6 fl (7.4-10.4); MONOCYTE # 1.4 10^3/ul (0.3-0.9); MONOCYTES % 10.6 % (0.0-11.0); NEUTROPHIL # 6.8 10^3/ul (1.6-7.5); NEUTROPHILS % 51.7 % (39.0-77.0); NUCLEATED RED BLOOD CELLS # 0.2 10^3/ul (0.0-0.0); NUCLEATED RED BLOOD CELLS% 1.5 /100WBC (0.0-0.0); PLATELET COUNT 253 10^3/UL (140-415); RED BLOOD COUNT 2.65 10^6/ul (4.20-5.40); RED CELL DISTRIBUTION WIDTH 19.3 % (11.5-14.5)
[2018-09-21 10:05] LABS: HEMOGLOBIN A1C 5.8 % (0-5.9)
[2018-09-21 10:08] LABS: ALANINE AMINOTRANSFERASE 56 IU/L (13-69); ALBUMIN 3.9 g/dl (3.3-4.9); ALKALINE PHOSPHATASE 136 IU/L (42-121); ANION GAP 8 (5-13); ASPARTATE AMINO TRANSFERASE 65 IU/L (15-46); BILIRUBIN,INDIRECT 2.1 mg/dl (0-1.1); BILIRUBIN,TOTAL 2.1 mg/dl (0.2-1.3); BLOOD UREA NITROGEN 11 mg/dl (7-20); CALCIUM 8.6 mg/dl (8.4-10.2); CARBON DIOXIDE 25 mmol/L (21-31); CHLORIDE 105 mmol/L (97-110); CREATININE 0.85 mg/dl (0.44-1.00); Estimated GFR > 60 mL/min (>60); GLUCOSE 90 mg/dl (70-220); POTASSIUM 4.3 mmol/L (3.5-5.1); SODIUM 138 mmol/L (135-144); TOTAL PROTEIN 7.8 g/dl (6.1-8.1)
[2018-09-21] MEDS: ONDANSETRON 4 MG INJ IV (10:43)
[2018-09-21] MEDS: DEXTROSE 5%-0.45% NACL 1,000 ML IV ×2 (12:10→19:26)
[2018-09-22] MEDS: FLUCONAZOLE 150 MG TAB PO (02:01)
[2018-09-22] MEDS: DIPHENHYDRAMINE 50 MG INJ IV ×5 (02:44→21:36)
[2018-09-22] MEDS: morphine 10 MG INJ IV ×5 (02:45→21:35)
[2018-09-22] MEDS: MEROPENEM 1 GM/50ML(PMX) 50 ML IVPB ×3 (05:32→21:36)
[2018-09-22] MEDS: FLUCONAZOLE 100 MG TAB PO (09:09)
[2018-09-22] MEDS: ENOXAPARIN 30 MG/0.3 ML SYG SC (10:00)
[2018-09-22] MEDS: DEXTROSE 5%-0.45% NACL 1,000 ML IV (17:46)
[2018-09-22] MEDS: ONDANSETRON 4 MG INJ IV (21:36)
[2018-09-23] MEDS: DIPHENHYDRAMINE 50 MG INJ IV ×6 (01:35→21:50)
[2018-09-23] MEDS: morphine 10 MG INJ IV ×6 (01:36→21:50)
[2018-09-23] MEDS: MEROPENEM 1 GM/50ML(PMX) 50 ML IVPB ×3 (05:29→21:50)
[2018-09-23] MEDS: ONDANSETRON 4 MG INJ IV ×2 (05:29→21:58)
[2018-09-23] MEDS: ENOXAPARIN 30 MG/0.3 ML SYG SC (09:30)
[2018-09-23] MEDS: DEXTROSE 5%-0.45% NACL 1,000 ML IV ×2 (14:10→17:22)
[2018-09-23] MEDS: DEFERASIROX 360 MG PO ×2 (15:00→21:49)
[2018-09-23] MEDS ORDERED: DEFERASIROX 360 MG PO (15:00)
[2018-09-23] MEDS ORDERED: HYDROCODONE/APAP (5/325) TAB PO ×2 (15:30)
[2018-09-23] MEDS: DOCUSATE SODIUM 100 MG CAP PO (21:50)
[2018-09-23] MEDS: ACETAMINOPHEN 325 MG TAB PO (21:58)
[2018-09-23] MEDS: HYDROXYUREA 500 MG CAP PO (23:13)
[2018-09-24] MEDS: DIPHENHYDRAMINE 50 MG INJ IV ×5 (01:39→21:54)
[2018-09-24] MEDS: morphine 10 MG INJ IV ×6 (01:39→21:55)
[2018-09-24] MEDS: MEROPENEM 1 GM/50ML(PMX) 50 ML IVPB ×3 (05:40→21:55)
[2018-09-24] MEDS: ONDANSETRON 4 MG INJ IV ×2 (05:40→17:43)
[2018-09-24] MEDS: FOLIC ACID 1 MG TAB PO (09:37)
[2018-09-24] MEDS: DOCUSATE SODIUM 100 MG CAP PO ×2 (09:37→21:55)
[2018-09-24] MEDS: DEFERASIROX 360 MG PO ×2 (09:38→21:56)
[2018-09-24] MEDS: ENOXAPARIN 30 MG/0.3 ML SYG SC (09:41)
[2018-09-24] MEDS: HYDROXYUREA 500 MG CAP PO ×2 (11:43→22:04)
[2018-09-24] MEDS: DEXTROSE 5%-0.45% NACL 1,000 ML IV ×2 (13:43→23:30)
[2018-09-25] MEDS: morphine 10 MG INJ IV ×6 (01:39→21:39)
[2018-09-25] MEDS: DIPHENHYDRAMINE 50 MG INJ IV ×7 (01:39→23:44)
[2018-09-25] MEDS: MEROPENEM 1 GM/50ML(PMX) 50 ML IVPB ×3 (05:35→21:48)
[2018-09-25] MEDS: ONDANSETRON 4 MG INJ IV ×2 (05:39→21:38)
[2018-09-25] MEDS: DEFERASIROX 360 MG PO ×2 (09:04→21:03)
[2018-09-25] MEDS: FLUCONAZOLE 100 MG TAB PO (09:05)
[2018-09-25] MEDS: DOCUSATE SODIUM 100 MG CAP PO ×2 (09:05→21:03)
[2018-09-25] MEDS: FOLIC ACID 1 MG TAB PO (09:05)
[2018-09-25] MEDS: HYDROXYUREA 500 MG CAP PO ×2 (09:08→21:04)
[2018-09-25] MEDS: ENOXAPARIN 30 MG/0.3 ML SYG SC (09:09)
[2018-09-25] MEDS: ALTEPLASE (CATHFLO) 2 MG INJ CATHETER (11:19)
[2018-09-25 13:52] LABS: ADD MAN DIFF? NO
[2018-09-25 13:53] LABS: BASOPHIL # 0.1 10^3/ul (0.0-0.1); BASOPHILS % 0.8 % (0.0-2.0); EOSINOPHILS # 0.6 10^3/ul (0.0-0.5); EOSINOPHILS % 5.1 % (0.0-7.0); HEMATOCRIT 21.8 % (37.0-47.0); LYMPHOCYTES # 4.3 10^3/ul (0.8-2.9); LYMPHOCYTES % 36.9 % (15.0-51.0); MEAN CORPUSCULAR HGB CONC 32.1 g/dl (32.0-37.0); MEAN CORPUSCULAR VOLUME 90.5 fl (82.0-101.0); MONOCYTE # 1.3 10^3/ul (0.3-0.9); MONOCYTES % 11.2 % (0.0-11.0); NEUTROPHIL # 5.3 10^3/ul (1.6-7.5); NEUTROPHILS % 45.1 % (39.0-77.0); NUCLEATED RED BLOOD CELLS # 0.1 10^3/ul (0.0-0.0); NUCLEATED RED BLOOD CELLS% 1.2 /100WBC (0.0-0.0); PLATELET COUNT 250 10^3/UL (140-415); RED BLOOD COUNT 2.41 10^6/ul (4.20-5.40); RED CELL DISTRIBUTION WIDTH 18.1 % (11.5-14.5)
[2018-09-25 13:53] LABS: WHITE BLOOD COUNT 11.7 10^3/ul (4.8-10.8)
[2018-09-25 14:11] LABS: ANION GAP 7 (5-13); BLOOD UREA NITROGEN 10 mg/dl (7-20); CARBON DIOXIDE 28 mmol/L (21-31); CHLORIDE 103 mmol/L (97-110); CREATININE 0.71 mg/dl (0.44-1.00); Estimated GFR > 60 mL/min (>60); GLUCOSE 100 mg/dl (70-220); SODIUM 138 mmol/L (135-144)
[2018-09-25 14:15] LABS: POTASSIUM 4.8 mmol/L (3.5-5.1)
[2018-09-25] MEDS: DEXTROSE 5%-0.45% NACL 1,000 ML IV (19:04)
[2018-09-25] MEDS: ACETAMINOPHEN 325 MG TAB PO (23:51)
[2018-09-26 00:04] LABS: IMMEDIATE SPIN CROSSMATCH 1 1
[2018-09-26] MEDS: DIPHENHYDRAMINE 50 MG INJ IV ×6 (01:36→21:54)
[2018-09-26] MEDS: morphine 10 MG INJ IV ×6 (01:37→21:54)
[2018-09-26] MEDS: MEROPENEM 1 GM/50ML(PMX) 50 ML IVPB ×3 (05:54→21:53)
[2018-09-26] MEDS: ONDANSETRON 4 MG INJ IV ×2 (05:54→18:02)
[2018-09-26] MEDS: DEXTROSE 5%-0.45% NACL 1,000 ML IV (08:50)
[2018-09-26] MEDS: DOCUSATE SODIUM 100 MG CAP PO ×2 (09:47→21:53)
[2018-09-26] MEDS: FOLIC ACID 1 MG TAB PO (09:47)
[2018-09-26] MEDS: DEFERASIROX 360 MG PO ×2 (09:47→21:54)
[2018-09-26] MEDS: HYDROXYUREA 500 MG CAP PO ×2 (09:50→22:01)
[2018-09-26] MEDS: ENOXAPARIN 30 MG/0.3 ML SYG SC (09:51)
[2018-09-26] MEDS: FLUCONAZOLE 150 MG TAB PO (14:05)
[2018-09-26] MEDS: METHYLNALTREXONE 12 MG/0.6 ML VIAL SC (18:02)
[2018-09-26] MEDS ORDERED: ZOLPIDEM 5 MG TAB PO (20:30)
[2018-09-27] MEDS: DIPHENHYDRAMINE 50 MG INJ IV ×6 (02:04→22:07)
[2018-09-27] MEDS: morphine 10 MG INJ IV ×6 (02:04→22:07)
[2018-09-27] MEDS: ONDANSETRON 4 MG INJ IV ×3 (02:04→22:06)
[2018-09-27] MEDS: MEROPENEM 1 GM/50ML(PMX) 50 ML IVPB ×3 (06:00→21:53)
[2018-09-27] MEDS: DOCUSATE SODIUM 100 MG CAP PO ×2 (09:11→21:53)
[2018-09-27] MEDS: DEFERASIROX 360 MG PO ×2 (09:11→21:52)
[2018-09-27] MEDS: FOLIC ACID 1 MG TAB PO (09:11)
[2018-09-27] MEDS: ENOXAPARIN 30 MG/0.3 ML SYG SC (09:12)
[2018-09-27] MEDS: HYDROXYUREA 500 MG CAP PO ×2 (09:12→22:13)
[2018-09-27 10:08] LABS: ADD MAN DIFF? NO
[2018-09-27 10:11] LABS: WHITE BLOOD COUNT 11.2 10^3/ul (4.8-10.8)
[2018-09-27 10:11] LABS: ABNORMAL IP MESSAGE 1; BASOPHIL # 0.1 10^3/ul (0.0-0.1); BASOPHILS % 1.2 % (0.0-2.0); EOSINOPHILS # 0.9 10^3/ul (0.0-0.5); EOSINOPHILS % 8.2 % (0.0-7.0); HEMATOCRIT 26.3 % (37.0-47.0); HEMOGLOBIN 8.5 g/dl (12.0-16.0); MEAN CORPUSCULAR HEMOGLOBIN 29.5 pg (29.0-33.0); MEAN CORPUSCULAR HGB CONC 32.3 g/dl (32.0-37.0); MEAN CORPUSCULAR VOLUME 91.3 fl (82.0-101.0); MEAN PLATELET VOLUME 10.8 fl (7.4-10.4); MONOCYTE # 1.6 10^3/ul (0.3-0.9); MONOCYTES % 13.9 % (0.0-11.0); NEUTROPHIL # 3.5 10^3/ul (1.6-7.5); NEUTROPHILS % 31.2 % (39.0-77.0); NUCLEATED RED BLOOD CELLS # 0.2 10^3/ul (0.0-0.0); NUCLEATED RED BLOOD CELLS% 1.4 /100WBC (0.0-0.0); PLATELET COUNT 272 10^3/UL (140-415); RED BLOOD COUNT 2.88 10^6/ul (4.20-5.40); RED CELL DISTRIBUTION WIDTH 18.3 % (11.5-14.5)
[2018-09-27 10:14] LABS: POSITIVE DIFF @See below
[2018-09-27] MEDS: LORATADINE 10 MG TAB PO (22:46)
[2018-09-28] MEDS: DIPHENHYDRAMINE 50 MG INJ IV ×6 (02:03→20:13)
[2018-09-28] MEDS: morphine 10 MG INJ IV ×6 (02:03→20:14)
[2018-09-28] MEDS: ONDANSETRON 4 MG INJ IV ×2 (06:01→16:05)
[2018-09-28] MEDS: LORATADINE 10 MG TAB PO (08:05)
[2018-09-28] MEDS: HYDROXYUREA 500 MG CAP PO ×2 (08:05→21:35)
[2018-09-28] MEDS: ENOXAPARIN 30 MG/0.3 ML SYG SC (08:05)
[2018-09-28] MEDS: DOCUSATE SODIUM 100 MG CAP PO ×2 (08:05→21:33)
[2018-09-28] MEDS: DEFERASIROX 360 MG PO ×2 (08:06→21:33)
[2018-09-28] MEDS: FOLIC ACID 1 MG TAB PO (08:06)
[2018-09-28] MEDS: AZITHROMYCIN 250 MG TAB PO (08:06)
[2018-09-28] MEDS: FLUCONAZOLE 150 MG TAB PO (21:33)
[2018-09-29] MEDS: morphine 10 MG INJ IV ×6 (00:25→23:16)
[2018-09-29] MEDS: DIPHENHYDRAMINE 50 MG INJ IV ×6 (00:25→23:16)
[2018-09-29] MEDS: METHYLNALTREXONE 12 MG/0.6 ML VIAL SC (00:25)
[2018-09-29] MEDS: LORATADINE 10 MG TAB PO (11:02)
[2018-09-29] MEDS: FOLIC ACID 1 MG TAB PO (11:02)
[2018-09-29] MEDS: HYDROXYUREA 500 MG CAP PO ×2 (11:02→23:23)
[2018-09-29] MEDS: ENOXAPARIN 30 MG/0.3 ML SYG SC (11:02)
[2018-09-29] MEDS: DEFERASIROX 360 MG PO ×2 (11:03→23:16)
[2018-09-29] MEDS: AZITHROMYCIN 250 MG TAB PO (11:03)
[2018-09-29] MEDS: DOCUSATE SODIUM 100 MG CAP PO ×2 (11:03→23:15)
[2018-09-29] MEDS: ONDANSETRON 4 MG INJ IV ×2 (15:09→23:15)
[2018-09-29] MEDS: SOD CHLORIDE 0.9% 1,000 ML IV (16:43)
[2018-09-30] MEDS: DIPHENHYDRAMINE 50 MG INJ IV ×6 (03:29→23:38)
[2018-09-30] MEDS: morphine 10 MG INJ IV ×6 (03:29→23:38)
[2018-09-30] MEDS: SOD CHLORIDE 0.9% 1,000 ML IV ×2 (05:20→07:32)
[2018-09-30] MEDS: DEFERASIROX 360 MG PO ×2 (10:08→22:08)
[2018-09-30] MEDS: AZITHROMYCIN 250 MG TAB PO (10:09)
[2018-09-30] MEDS: FOLIC ACID 1 MG TAB PO (10:09)
[2018-09-30] MEDS: DOCUSATE SODIUM 100 MG CAP PO ×2 (10:09→22:08)
[2018-09-30] MEDS: LORATADINE 10 MG TAB PO (10:09)
[2018-09-30] MEDS: HYDROXYUREA 500 MG CAP PO ×2 (10:10→22:10)
[2018-09-30] MEDS: ENOXAPARIN 40 MG/0.4 ML SYG SC (10:11)
[2018-09-30 10:32] LABS: ADD MAN DIFF? NO
[2018-09-30 10:42] LABS: BASOPHIL # 0.1 10^3/ul (0.0-0.1); BASOPHILS % 1.2 % (0.0-2.0); EOSINOPHILS # 0.5 10^3/ul (0.0-0.5); EOSINOPHILS % 5.2 % (0.0-7.0); HEMATOCRIT 24.3 % (37.0-47.0); HEMOGLOBIN 7.9 g/dl (12.0-16.0); LYMPHOCYTES # 2.4 10^3/ul (0.8-2.9); LYMPHOCYTES % 23.1 % (15.0-51.0); MEAN CORPUSCULAR HEMOGLOBIN 29.3 pg (29.0-33.0); MEAN CORPUSCULAR HGB CONC 32.5 g/dl (32.0-37.0); MONOCYTE # 1.2 10^3/ul (0.3-0.9); MONOCYTES % 11.2 % (0.0-11.0); NEUTROPHIL # 6.1 10^3/ul (1.6-7.5); NEUTROPHILS % 58.7 % (39.0-77.0); NUCLEATED RED BLOOD CELLS # 0.1 10^3/ul (0.0-0.0); NUCLEATED RED BLOOD CELLS% 0.7 /100WBC (0.0-0.0); PLATELET COUNT 252 10^3/UL (140-415); RED CELL DISTRIBUTION WIDTH 17.7 % (11.5-14.5)
[2018-09-30 10:42] LABS: WHITE BLOOD COUNT 10.4 10^3/ul (4.8-10.8)
[2018-09-30 10:55] LABS: ANION GAP 7 (5-13); BLOOD UREA NITROGEN 21 mg/dl (7-20); CALCIUM 8.5 mg/dl (8.4-10.2); CARBON DIOXIDE 25 mmol/L (21-31); CHLORIDE 108 mmol/L (97-110); CREATININE 0.74 mg/dl (0.44-1.00); Estimated GFR > 60 mL/min (>60); GLUCOSE 103 mg/dl (70-220); SODIUM 140 mmol/L (135-144)
[2018-09-30] MEDS: ONDANSETRON 4 MG INJ IV (11:25)
[2018-09-30] MEDS: METHYLNALTREXONE 12 MG/0.6 ML VIAL SC (18:36)
[2018-09-30] MEDS: oxyCODONE (CR) 15 MG TAB [oxyCONTIN] PO (22:09)
[2018-09-30] MEDS: traZODone 50 MG TAB PO (22:09)
[2018-09-30] MEDS: GABAPENTIN 100 MG CAP PO (22:09)
[2018-09-30] MEDS: BISACODYL (EC) 5 MG TAB PO (22:16)
[2018-10-01] MEDS: morphine 10 MG INJ IV ×5 (04:20→20:40)
[2018-10-01] MEDS: DIPHENHYDRAMINE 50 MG INJ IV ×5 (04:20→20:39)
[2018-10-01] MEDS: SOD CHLORIDE 0.9% 1,000 ML IV ×4 (04:28→21:20)
[2018-10-01] MEDS: DEFERASIROX 360 MG PO ×2 (08:41→22:03)
[2018-10-01] MEDS: GABAPENTIN 100 MG CAP PO ×3 (08:53→22:04)
[2018-10-01] MEDS: HYDROXYUREA 500 MG CAP PO ×2 (08:53→22:07)
[2018-10-01] MEDS: ENOXAPARIN 40 MG/0.4 ML SYG SC (08:53)
[2018-10-01] MEDS: AZITHROMYCIN 250 MG TAB PO (08:54)
[2018-10-01] MEDS: LORATADINE 10 MG TAB PO (08:54)
[2018-10-01] MEDS: oxyCODONE (CR) 15 MG TAB [oxyCONTIN] PO ×2 (08:54→22:05)
[2018-10-01] MEDS: FOLIC ACID 1 MG TAB PO (08:54)
[2018-10-01] MEDS: DOCUSATE SODIUM 100 MG CAP PO ×2 (08:54→22:03)
[2018-10-01] MEDS: ONDANSETRON 4 MG INJ IV (16:49)
[2018-10-01] MEDS: traZODone 50 MG TAB PO (22:04)
[2018-10-02] MEDS: ONDANSETRON 4 MG INJ IV ×3 (00:40→21:08)
[2018-10-02] MEDS: morphine 10 MG INJ IV ×6 (00:40→20:44)
[2018-10-02] MEDS: DIPHENHYDRAMINE 50 MG INJ IV ×6 (00:41→20:45)
[2018-10-02] MEDS: FOLIC ACID 1 MG TAB PO (08:34)
[2018-10-02] MEDS: DOCUSATE SODIUM 100 MG CAP PO ×2 (08:34→20:41)
[2018-10-02] MEDS: LORATADINE 10 MG TAB PO (08:34)
[2018-10-02] MEDS: GABAPENTIN 100 MG CAP PO ×3 (08:35→20:41)
[2018-10-02] MEDS: oxyCODONE (CR) 15 MG TAB [oxyCONTIN] PO ×2 (08:35→20:41)
[2018-10-02] MEDS: AZITHROMYCIN 250 MG TAB PO (08:35)
[2018-10-02] MEDS: DEFERASIROX 360 MG PO ×2 (08:35→20:42)
[2018-10-02] MEDS: ENOXAPARIN 40 MG/0.4 ML SYG SC (08:38)
[2018-10-02] MEDS: HYDROXYUREA 500 MG CAP PO ×2 (08:38→20:44)
[2018-10-02] MEDS: SOD CHLORIDE 0.9% 1,000 ML IV (08:58)
[2018-10-02 09:48] LABS: ADD MAN DIFF? NO
[2018-10-02 09:51] LABS: BASOPHIL # 0.1 10^3/ul (0.0-0.1); BASOPHILS % 0.9 % (0.0-2.0); EOSINOPHILS # 0.4 10^3/ul (0.0-0.5); HEMATOCRIT 22.8 % (37.0-47.0); HEMOGLOBIN 7.4 g/dl (12.0-16.0); LYMPHOCYTES # 3.1 10^3/ul (0.8-2.9); LYMPHOCYTES % 28.5 % (15.0-51.0); MEAN CORPUSCULAR HEMOGLOBIN 29.7 pg (29.0-33.0); MEAN CORPUSCULAR HGB CONC 32.5 g/dl (32.0-37.0); MEAN CORPUSCULAR VOLUME 91.6 fl (82.0-101.0); MEAN PLATELET VOLUME 11.4 fl (7.4-10.4); MONOCYTE # 0.9 10^3/ul (0.3-0.9); MONOCYTES % 7.9 % (0.0-11.0); NEUTROPHIL # 6.4 10^3/ul (1.6-7.5); NUCLEATED RED BLOOD CELLS # 0.1 10^3/ul (0.0-0.0); NUCLEATED RED BLOOD CELLS% 0.5 /100WBC (0.0-0.0); PLATELET COUNT 247 10^3/UL (140-415); RED BLOOD COUNT 2.49 10^6/ul (4.20-5.40)
[2018-10-02 10:22] LABS: ANION GAP 7 (5-13); BLOOD UREA NITROGEN 14 mg/dl (7-20); CALCIUM 8.7 mg/dl (8.4-10.2); CARBON DIOXIDE 26 mmol/L (21-31); CHLORIDE 105 mmol/L (97-110); CREATININE 0.69 mg/dl (0.44-1.00); Estimated GFR > 60 mL/min (>60); GLUCOSE 102 mg/dl (70-220); POTASSIUM 4.8 mmol/L (3.5-5.1); SODIUM 138 mmol/L (135-144)
[2018-10-02] MEDS: METHYLNALTREXONE 12 MG/0.6 ML VIAL SC (16:55)
[2018-10-02] MEDS: traZODone 50 MG TAB PO (20:41)
[2018-10-02] MEDS: SOD CHLORIDE 0.9% 250 ML IV* (20:45)
[2018-10-02 20:50] LABS: IMMEDIATE SPIN CROSSMATCH 1 1
[2018-10-03] MEDS: morphine 10 MG INJ IV ×5 (00:34→22:21)
[2018-10-03] MEDS: DIPHENHYDRAMINE 50 MG INJ IV ×5 (00:34→22:22)
[2018-10-03] MEDS: SOD CHLORIDE 0.9% 1,000 ML IV ×2 (01:46→15:05)
[2018-10-03] MEDS: ONDANSETRON 4 MG INJ IV ×2 (04:40→14:44)
[2018-10-03] MEDS: DEFERASIROX 360 MG PO ×2 (10:24→22:46)
[2018-10-03] MEDS: AZITHROMYCIN 250 MG TAB PO (10:25)
[2018-10-03] MEDS: oxyCODONE (CR) 15 MG TAB [oxyCONTIN] PO ×2 (10:25→22:47)
[2018-10-03] MEDS: DOCUSATE SODIUM 100 MG CAP PO ×2 (10:25→22:46)
[2018-10-03] MEDS: FOLIC ACID 1 MG TAB PO (10:25)
[2018-10-03] MEDS: LORATADINE 10 MG TAB PO (10:25)
[2018-10-03] MEDS: GABAPENTIN 100 MG CAP PO ×3 (10:26→22:47)
[2018-10-03] MEDS: ENOXAPARIN 40 MG/0.4 ML SYG SC (10:27)
[2018-10-03] MEDS: HYDROXYUREA 500 MG CAP PO ×2 (10:28→22:48)
[2018-10-03] MEDS: traZODone 50 MG TAB PO (22:46)
[2018-10-04] MEDS: DIPHENHYDRAMINE 50 MG INJ IV ×5 (02:22→21:22)
[2018-10-04] MEDS: SOD CHLORIDE 0.9% 1,000 ML IV ×2 (02:22→16:27)
[2018-10-04] MEDS: morphine 10 MG INJ IV ×5 (02:23→21:22)
[2018-10-04] MEDS: ONDANSETRON 4 MG INJ IV ×2 (02:41→17:24)
[2018-10-04] MEDS: DOCUSATE SODIUM 100 MG CAP PO ×2 (08:17→21:21)
[2018-10-04] MEDS: FOLIC ACID 1 MG TAB PO (08:18)
[2018-10-04] MEDS: AZITHROMYCIN 250 MG TAB PO (08:18)
[2018-10-04] MEDS: LORATADINE 10 MG TAB PO (08:18)
[2018-10-04] MEDS: GABAPENTIN 100 MG CAP PO ×3 (08:18→21:21)
[2018-10-04] MEDS: oxyCODONE (CR) 15 MG TAB [oxyCONTIN] PO ×2 (08:18→21:22)
[2018-10-04] MEDS: HYDROXYUREA 500 MG CAP PO ×2 (08:23→21:29)
[2018-10-04] MEDS: ENOXAPARIN 40 MG/0.4 ML SYG SC (08:23)
[2018-10-04 11:37] LABS: ADD MAN DIFF? NO
[2018-10-04 11:44] LABS: BASOPHIL # 0.1 10^3/ul (0.0-0.1); BASOPHILS % 1.6 % (0.0-2.0); EOSINOPHILS # 0.6 10^3/ul (0.0-0.5); HEMATOCRIT 24.4 % (37.0-47.0); LYMPHOCYTES # 4.4 10^3/ul (0.8-2.9); LYMPHOCYTES % 53.9 % (15.0-51.0); MEAN CORPUSCULAR HEMOGLOBIN 29.7 pg (29.0-33.0); MEAN CORPUSCULAR HGB CONC 32.8 g/dl (32.0-37.0); MEAN CORPUSCULAR VOLUME 90.7 fl (82.0-101.0); MEAN PLATELET VOLUME 10.8 fl (7.4-10.4); MONOCYTES % 12.3 % (0.0-11.0); NEUTROPHIL # 2.1 10^3/ul (1.6-7.5); NEUTROPHILS % 24.8 % (39.0-77.0); NUCLEATED RED BLOOD CELLS # 0.1 10^3/ul (0.0-0.0); PLATELET COUNT 288 10^3/UL (140-415); RED BLOOD COUNT 2.69 10^6/ul (4.20-5.40); RED CELL DISTRIBUTION WIDTH 17.7 % (11.5-14.5)
[2018-10-04 11:44] LABS: WHITE BLOOD COUNT 8.2 10^3/ul (4.8-10.8)
[2018-10-04 12:22] LABS: ANION GAP 2 (5-13); BLOOD UREA NITROGEN 13 mg/dl (7-20); CALCIUM 8.5 mg/dl (8.4-10.2); CARBON DIOXIDE 29 mmol/L (21-31); CHLORIDE 105 mmol/L (97-110); CREATININE 0.82 mg/dl (0.44-1.00); Estimated GFR > 60 mL/min (>60); GLUCOSE 111 mg/dl (70-220); POTASSIUM 4.6 mmol/L (3.5-5.1); SODIUM 136 mmol/L (135-144)
[2018-10-04 13:35] LABS: ALANINE AMINOTRANSFERASE 127 IU/L (13-69); ALBUMIN 3.4 g/dl (3.3-4.9); ALKALINE PHOSPHATASE 142 IU/L (42-121); ASPARTATE AMINO TRANSFERASE 134 IU/L (15-46); BILIRUBIN,INDIRECT 1.4 mg/dl (0-1.1); BILIRUBIN,TOTAL 1.4 mg/dl (0.2-1.3); TOTAL PROTEIN 6.9 g/dl (6.1-8.1)
[2018-10-04] MEDS: DEFERASIROX 360 MG PO ×2 (13:38→21:22)
[2018-10-04] MEDS: METHYLNALTREXONE 12 MG/0.6 ML VIAL SC (17:29)
[2018-10-04] MEDS: BISACODYL (EC) 5 MG TAB PO (18:24)
[2018-10-04] MEDS: traZODone 50 MG TAB PO (21:21)
[2018-10-05] MEDS: morphine 10 MG INJ IV ×5 (01:40→20:38)
[2018-10-05] MEDS: DIPHENHYDRAMINE 50 MG INJ IV ×5 (01:40→20:38)
[2018-10-05] MEDS: ONDANSETRON 4 MG INJ IV (05:25)
[2018-10-05] MEDS: SOD CHLORIDE 0.9% 1,000 ML IV ×3 (05:29→20:37)
[2018-10-05] MEDS: LORATADINE 10 MG TAB PO (12:11)
[2018-10-05] MEDS: FOLIC ACID 1 MG TAB PO (12:11)
[2018-10-05] MEDS: DEFERASIROX 360 MG PO ×2 (12:11→20:37)
[2018-10-05] MEDS: DOCUSATE SODIUM 100 MG CAP PO ×2 (12:11→20:35)
[2018-10-05] MEDS: GABAPENTIN 100 MG CAP PO ×3 (12:11→20:36)
[2018-10-05] MEDS: AZITHROMYCIN 250 MG TAB PO (12:11)
[2018-10-05] MEDS: HYDROXYUREA 500 MG CAP PO ×2 (12:15→21:01)
[2018-10-05] MEDS: ENOXAPARIN 40 MG/0.4 ML SYG SC (12:16)
[2018-10-05] MEDS: oxyCODONE (CR) 15 MG TAB [oxyCONTIN] PO ×2 (13:12→20:36)
[2018-10-05] MEDS: traZODone 50 MG TAB PO (20:35)
[2018-10-06] MEDS: morphine 10 MG INJ IV ×6 (00:36→20:58)
[2018-10-06] MEDS: ONDANSETRON 4 MG INJ IV (00:36)
[2018-10-06] MEDS: DIPHENHYDRAMINE 50 MG INJ IV ×6 (00:36→20:57)
[2018-10-06] MEDS: FOLIC ACID 1 MG TAB PO (09:00)
[2018-10-06] MEDS: LORATADINE 10 MG TAB PO (09:00)
[2018-10-06] MEDS: AZITHROMYCIN 250 MG TAB PO (09:00)
[2018-10-06] MEDS: DOCUSATE SODIUM 100 MG CAP PO ×2 (09:00→20:56)
[2018-10-06] MEDS: GABAPENTIN 100 MG CAP PO ×3 (09:01→20:56)
[2018-10-06] MEDS: HYDROXYUREA 500 MG CAP PO ×2 (09:01→21:01)
[2018-10-06] MEDS: ENOXAPARIN 40 MG/0.4 ML SYG SC (09:01)
[2018-10-06] MEDS: DEFERASIROX 360 MG PO ×2 (09:04→22:13)
[2018-10-06 09:35] LABS: ADD MAN DIFF? NO
[2018-10-06 09:38] LABS: WHITE BLOOD COUNT 9.8 10^3/ul (4.8-10.8)
[2018-10-06 09:38] LABS: BASOPHIL # 0.1 10^3/ul (0.0-0.1); BASOPHILS % 1.3 % (0.0-2.0); EOSINOPHILS # 0.8 10^3/ul (0.0-0.5); EOSINOPHILS % 7.7 % (0.0-7.0); HEMOGLOBIN 8.1 g/dl (12.0-16.0); LYMPHOCYTES # 4.5 10^3/ul (0.8-2.9); LYMPHOCYTES % 45.6 % (15.0-51.0); MEAN CORPUSCULAR HGB CONC 32.4 g/dl (32.0-37.0); MEAN CORPUSCULAR VOLUME 92.6 fl (82.0-101.0); MEAN PLATELET VOLUME 10.6 fl (7.4-10.4); MONOCYTE # 1.1 10^3/ul (0.3-0.9); MONOCYTES % 11.4 % (0.0-11.0); NEUTROPHIL # 3.3 10^3/ul (1.6-7.5); NEUTROPHILS % 33.7 % (39.0-77.0); NUCLEATED RED BLOOD CELLS # 0.1 10^3/ul (0.0-0.0); NUCLEATED RED BLOOD CELLS% 0.8 /100WBC (0.0-0.0); PLATELET COUNT 315 10^3/UL (140-415); RED CELL DISTRIBUTION WIDTH 17.8 % (11.5-14.5)
[2018-10-06] MEDS: oxyCODONE (CR) 15 MG TAB [oxyCONTIN] PO ×2 (09:58→20:57)
[2018-10-06 10:00] LABS: ANION GAP 5 (5-13); BLOOD UREA NITROGEN 15 mg/dl (7-20); CALCIUM 8.3 mg/dl (8.4-10.2); CARBON DIOXIDE 27 mmol/L (21-31); CHLORIDE 106 mmol/L (97-110); CREATININE 0.81 mg/dl (0.44-1.00); Estimated GFR > 60 mL/min (>60); GLUCOSE 97 mg/dl (70-220); POTASSIUM 4.5 mmol/L (3.5-5.1); SODIUM 138 mmol/L (135-144)
[2018-10-06] MEDS: METHYLNALTREXONE 12 MG/0.6 ML VIAL SC (16:54)
[2018-10-06] MEDS: traZODone 50 MG TAB PO (20:56)
[2018-10-07] MEDS: DIPHENHYDRAMINE 50 MG INJ IV ×4 (01:02→20:08)
[2018-10-07] MEDS: morphine 10 MG INJ IV ×5 (01:02→20:08)
[2018-10-07] MEDS: DEFERASIROX 360 MG PO ×2 (11:12→20:12)
[2018-10-07] MEDS: FOLIC ACID 1 MG TAB PO (11:13)
[2018-10-07] MEDS: oxyCODONE (CR) 15 MG TAB [oxyCONTIN] PO ×2 (11:13→22:00)
[2018-10-07] MEDS: LUBIPROSTONE 24 MCG CAP PO ×2 (11:13→20:36)
[2018-10-07] MEDS: LORATADINE 10 MG TAB PO (11:14)
[2018-10-07] MEDS: DOCUSATE SODIUM 100 MG CAP PO ×2 (11:14→20:36)
[2018-10-07] MEDS: GABAPENTIN 100 MG CAP PO ×3 (11:14→20:36)
[2018-10-07] MEDS: AZITHROMYCIN 250 MG TAB PO (11:14)
[2018-10-07] MEDS: HYDROXYUREA 500 MG CAP PO ×2 (11:29→20:38)
[2018-10-07] MEDS: ENOXAPARIN 40 MG/0.4 ML SYG SC (11:29)
[2018-10-07 11:49] LABS: ADD MAN DIFF? NO
[2018-10-07 11:53] LABS: WHITE BLOOD COUNT 11.5 10^3/ul (4.8-10.8)
[2018-10-07 11:53] LABS: ABNORMAL IP MESSAGE 1; BASOPHIL # 0.1 10^3/ul (0.0-0.1); BASOPHILS % 1.1 % (0.0-2.0); EOSINOPHILS # 0.9 10^3/ul (0.0-0.5); EOSINOPHILS % 7.5 % (0.0-7.0); HEMATOCRIT 25.9 % (37.0-47.0); HEMOGLOBIN 8.5 g/dl (12.0-16.0); LYMPHOCYTES # 5.2 10^3/ul (0.8-2.9); LYMPHOCYTES % 45.1 % (15.0-51.0); MEAN CORPUSCULAR HEMOGLOBIN 30.1 pg (29.0-33.0); MEAN CORPUSCULAR HGB CONC 32.8 g/dl (32.0-37.0); MEAN CORPUSCULAR VOLUME 91.8 fl (82.0-101.0); MEAN PLATELET VOLUME 10.9 fl (7.4-10.4); MONOCYTE # 1.2 10^3/ul (0.3-0.9); NEUTROPHIL # 4.1 10^3/ul (1.6-7.5); NUCLEATED RED BLOOD CELLS # 0.1 10^3/ul (0.0-0.0); NUCLEATED RED BLOOD CELLS% 0.6 /100WBC (0.0-0.0); PLATELET COUNT 346 10^3/UL (140-415); RED BLOOD COUNT 2.82 10^6/ul (4.20-5.40); RED CELL DISTRIBUTION WIDTH 17.8 % (11.5-14.5)
[2018-10-07 11:54] LABS: POSITIVE DIFF @See below
[2018-10-07 12:49] LABS: ANION GAP 9 (5-13); BLOOD UREA NITROGEN 24 mg/dl (7-20); CALCIUM 9.1 mg/dl (8.4-10.2); CARBON DIOXIDE 29 mmol/L (21-31); CHLORIDE 99 mmol/L (97-110); CREATININE 1.25 mg/dl (0.44-1.00); Estimated GFR 51 mL/min (>60); GLUCOSE 107 mg/dl (70-220); SODIUM 137 mmol/L (135-144)
[2018-10-07 12:59] LABS: POTASSIUM 4.9 mmol/L (3.5-5.1)
[2018-10-07 13:23] LABS: ANISOCYTOSIS 1+ (0-0); BAND NEUTROPHILS #M 0.2 10^3/ul (0.0-0.6); BAND NEUTROPHILS % (M) 2 % (0-4); EOSINOPHILS % (M) 6 % (0-7); HYPOCHROMASIA 1+ (0-0); LYMPHOCYTES #M 4.7 10^3/ul (0.8-2.9); LYMPHOCYTES % (M) 41 % (15-51); MONOCYTE #M 0.9 10^3/ul (0.3-0.9); MONOCYTES % (M) 8 % (0-11); PLATELET ESTIMATE NORMAL; POIKILOCYTOSIS 1+ (0-0); POLYCHROMASIA 3+ (0-0); REACTIVE LYMPHOCYTES #M 0.3 10^3/ul (0.0-0.0); REACTIVE LYMPHOCYTES% (M) 3 % (0-0); SEG NEUT #M 4.6 10^3/ul (1.6-7.5); SEGMENTED NEUTROPHILS (M) % 40 % (39-77); SMUDGE%M 14 % (0-0); TARGET CELLS 1+ (0-0)
[2018-10-07] MEDS: ONDANSETRON 4 MG INJ IV (16:08)
[2018-10-07] MEDS: traZODone 50 MG TAB PO (22:00)
[2018-10-07] MEDS: HEPARIN (100 UNITS/ML) 5 ML SYG CATHETER (22:02)
== END 2018-10-07 22:25 | disposition home health service (06) | DRG 871 ==
LOC: 2NE 09-21 08:42 → E/R 05:37 → 2NE 08:55
PROC: 30233N1 Transfusion of Nonautologous Red Blood Cells into Peripheral Vein, Percutaneous Approach (ICD-10-PCS; principal; 2018-09-20)
DX: A41.9 Sepsis, unspecified organism (principal); D57.00 Hb-SS disease with crisis, unspecified; N39.0 Urinary tract infection, site not specified; I87.1 Compression of vein; R50.81 Fever presenting with conditions classified elsewhere; Z76.5 Malingerer [conscious simulation]; G89.4 Chronic pain syndrome; D72.820 Lymphocytosis (symptomatic); R11.2 Nausea with vomiting, unspecified; Z86.711 Personal history of pulmonary embolism; E83.111 Hemochromatosis due to repeated red blood cell transfusions; E83.19 Other disorders of iron metabolism; K59.03 Drug induced constipation; T40.2X5A Adverse effect of other opioids, initial encounter; F41.9 Anxiety disorder, unspecified
CPT/HCPCS: 36415; 36430; 80048; 80053; 80076; 81001; 82728; 83036; 83690; 84703; 85025; 86850; 86900; 86901; 86920; 86945; 87040-91; 87081; 87086; 93005; 96374; 96375; 99285-25

== ENCOUNTER 2018-10-19 16:49 | Inpatient (IN) | payer OTHER ==
[2018-10-19 17:29] LABS: ADD MAN DIFF? NO
[2018-10-19] MEDS ORDERED: ONDANSETRON 4 MG INJ IV (17:30)
[2018-10-19 17:32] LABS: ABNORMAL IP MESSAGE 1; BASOPHIL # 0.1 10^3/ul (0.0-0.1); BASOPHILS % 0.8 % (0.0-2.0); EOSINOPHILS # 0.5 10^3/ul (0.0-0.5); EOSINOPHILS % 2.9 % (0.0-7.0); HEMATOCRIT 24.5 % (37.0-47.0); LYMPHOCYTES # 4.6 10^3/ul (0.8-2.9); LYMPHOCYTES % 26.1 % (15.0-51.0); MEAN CORPUSCULAR HEMOGLOBIN 29.9 pg (29.0-33.0); MEAN CORPUSCULAR HGB CONC 32.7 g/dl (32.0-37.0); MEAN CORPUSCULAR VOLUME 91.4 fl (82.0-101.0); MEAN PLATELET VOLUME 10.9 fl (7.4-10.4); MONOCYTE # 1.8 10^3/ul (0.3-0.9); MONOCYTES % 10.1 % (0.0-11.0); NEUTROPHIL # 10.4 10^3/ul (1.6-7.5); NEUTROPHILS % 59.3 % (39.0-77.0); NUCLEATED RED BLOOD CELLS # 0.1 10^3/ul (0.0-0.0); NUCLEATED RED BLOOD CELLS% 0.6 /100WBC (0.0-0.0); PLATELET COUNT 414 10^3/UL (140-415); RED BLOOD COUNT 2.68 10^6/ul (4.20-5.40); RED CELL DISTRIBUTION WIDTH 18.8 % (11.5-14.5)
[2018-10-19 17:32] LABS: WHITE BLOOD COUNT 17.5 10^3/ul (4.8-10.8)
[2018-10-19 17:36] LABS: POSITIVE DIFF @See below
[2018-10-19 17:37] LABS: RETICULOCYTE COUNT # 0.212 X10^6 (0.020-0.110); RETICULOCYTE COUNT % 8.1 % (0.5-1.5)
[2018-10-19 17:37] LABS: RETICULOCYTE RBC 2.62
[2018-10-19] MEDS: DIPHENHYDRAMINE 50 MG INJ IV ×2 (17:39→18:41)
[2018-10-19] MEDS: CEFEPIME 2GM/50 ML (PMX) 50 ML IVPB (17:39)
[2018-10-19] MEDS: ONDANSETRON 4 MG INJ IV ×2 (17:39→18:41)
[2018-10-19] MEDS: morphine 4 MG/ML VIAL IV ×2 (17:40→21:03)
[2018-10-19] MEDS: SODIUM CHLORIDE 0.9% 1L BAG IV* (17:40)
[2018-10-19 17:46] LABS: INR 1.03; PROTIME 13.6 Sec (11.9-14.9); PT RATIO 1.1
[2018-10-19 17:48] LABS: PARTIAL THROMBOPLASTIN TIME 33.6 Sec (23.0-35.0)
[2018-10-19 17:55] LABS: ALANINE AMINOTRANSFERASE 101 IU/L (13-69); ALBUMIN 4.3 g/dl (3.3-4.9); ALBUMIN/GLOBULIN RATIO 1.07; ALKALINE PHOSPHATASE 160 IU/L (42-121); ANION GAP 9 (5-13); ASPARTATE AMINO TRANSFERASE 90 IU/L (15-46); BILIRUBIN,INDIRECT 1.4 mg/dl (0-1.1); BILIRUBIN,TOTAL 1.4 mg/dl (0.2-1.3); BLOOD UREA NITROGEN 20 mg/dl (7-20); CALCIUM 9.2 mg/dl (8.4-10.2); CARBON DIOXIDE 25 mmol/L (21-31); CHLORIDE 105 mmol/L (97-110); CREATININE 1.05 mg/dl (0.44-1.00); Estimated GFR > 60 mL/min (>60); GLUCOSE 100 mg/dl (70-220); POTASSIUM 4.2 mmol/L (3.5-5.1); SODIUM 139 mmol/L (135-144); TOTAL PROTEIN 8.3 g/dl (6.1-8.1)
[2018-10-19 18:08] LABS: TROPONIN-I < 0.012 ng/ml (0.000-0.120)
[2018-10-19] MEDS: morphine 10 MG INJ IV (18:41)
[2018-10-19] MEDS: ACETAMINOPHEN 325 MG TAB PO (18:47)
[2018-10-19 18:48] LABS: ADD UMIC YES; UR ASCORBIC ACID NEGATIVE (NEGATIVE); UR BACTERIA FEW /HPF (NONE SEEN); UR BILIRUBIN (Dip) NEGATIVE (NEGATIVE); UR BLOOD (Dip) 1+ mg/dL (NEGATIVE); UR CLARITY CLEAR (CLEAR); UR COLOR YELLOW (YELLOW); UR GLUCOSE (Dip) NEGATIVE (NEGATIVE); UR KETONES (Dip) NEGATIVE (NEGATIVE); UR LEUKOCYTE ESTERASE (Dip) NEGATIVE Leu/ul (NEGATIVE); UR NITRITE (Dip) NEGATIVE (NEGATIVE); UR RBC 0 /HPF (0-5); UR SPECIFIC GRAVITY (Dip) 1.011 (1.003-1.030); UR TOTAL PROTEIN (Dip) NEGATIVE (NEGATIVE); UR UROBILINOGEN (Dip) NEGATIVE (NEGATIVE); UR WBC 0 /HPF (0-5)
[2018-10-19] MEDS ORDERED: NACL 0.9% 3 ML SYG IV (20:00)
[2018-10-19] MEDS ORDERED: morphine 2 MG INJ IV (20:00)
[2018-10-19 20:45] LABS: LACTIC ACID 0.7 mmol/L (0.5-2.0)
[2018-10-19] MEDS: FAMOTIDINE 20 MG INJ IV (21:04)
[2018-10-19] MEDS: SOD CHLORIDE 0.9% 1,000 ML IV (21:04)
[2018-10-19 22:51] LABS: LACTIC ACID 0.8 mmol/L (0.5-2.0)
[2018-10-19] MEDS ORDERED: DIPHENHYDRAMINE 50 MG INJ IV (23:30)
[2018-10-20] MEDS: ZOLPIDEM 5 MG TAB PO (00:28)
[2018-10-20] MEDS: CEFEPIME 1GM/50 ML (PMX) 50 ML IVPB ×3 (01:11→20:53)
[2018-10-20] MEDS: morphine 4 MG/ML VIAL IV ×6 (01:12→20:57)
[2018-10-20] MEDS: DIPHENHYDRAMINE 50 MG INJ IV ×4 (01:12→20:52)
[2018-10-20 06:25] LABS: ADD MAN DIFF? NO
[2018-10-20 06:30] LABS: BASOPHIL # 0.2 10^3/ul (0.0-0.1); BASOPHILS % 1.4 % (0.0-2.0); EOSINOPHILS # 0.5 10^3/ul (0.0-0.5); EOSINOPHILS % 4.4 % (0.0-7.0); HEMATOCRIT 23.5 % (37.0-47.0); HEMOGLOBIN 7.5 g/dl (12.0-16.0); LYMPHOCYTES # 3.9 10^3/ul (0.8-2.9); LYMPHOCYTES % 31.8 % (15.0-51.0); MEAN CORPUSCULAR HEMOGLOBIN 29.6 pg (29.0-33.0); MEAN CORPUSCULAR HGB CONC 31.9 g/dl (32.0-37.0); MEAN CORPUSCULAR VOLUME 92.9 fl (82.0-101.0); MEAN PLATELET VOLUME 11.2 fl (7.4-10.4); MONOCYTE # 1.2 10^3/ul (0.3-0.9); MONOCYTES % 9.6 % (0.0-11.0); NEUTROPHIL # 6.4 10^3/ul (1.6-7.5); NEUTROPHILS % 51.8 % (39.0-77.0); NUCLEATED RED BLOOD CELLS # 0.1 10^3/ul (0.0-0.0); NUCLEATED RED BLOOD CELLS% 0.9 /100WBC (0.0-0.0); PLATELET COUNT 363 10^3/UL (140-415); RED BLOOD COUNT 2.53 10^6/ul (4.20-5.40); RED CELL DISTRIBUTION WIDTH 19.1 % (11.5-14.5)
[2018-10-20 06:30] LABS: WHITE BLOOD COUNT 12.3 10^3/ul (4.8-10.8)
[2018-10-20 06:46] LABS: HEMOGLOBIN A1C 6.4 % (0-5.9)
[2018-10-20 07:05] LABS: ALANINE AMINOTRANSFERASE 96 IU/L (13-69); ALBUMIN/GLOBULIN RATIO 1.11; ALKALINE PHOSPHATASE 120 IU/L (42-121); ANION GAP 9 (5-13); ASPARTATE AMINO TRANSFERASE 86 IU/L (15-46); BILIRUBIN,INDIRECT 1.6 mg/dl (0-1.1); BILIRUBIN,TOTAL 1.6 mg/dl (0.2-1.3); BLOOD UREA NITROGEN 17 mg/dl (7-20); CALCIUM 8.7 mg/dl (8.4-10.2); CARBON DIOXIDE 24 mmol/L (21-31); CHLORIDE 105 mmol/L (97-110); CREATININE 1.02 mg/dl (0.44-1.00); Estimated GFR > 60 mL/min (>60); GLUCOSE 109 mg/dl (70-220); POTASSIUM 4.1 mmol/L (3.5-5.1); SODIUM 138 mmol/L (135-144); TOTAL PROTEIN 7.6 g/dl (6.1-8.1)
[2018-10-20] MEDS: HYDROXYUREA 500 MG CAP PO ×2 (08:50→21:05)
[2018-10-20] MEDS: FOLIC ACID 1 MG TAB PO (08:50)
[2018-10-20] MEDS: FAMOTIDINE 20 MG INJ IV (08:50)
[2018-10-20] MEDS: BISACODYL (EC) 5 MG TAB PO ×3 (08:50→20:52)
[2018-10-20] MEDS: ENOXAPARIN 30 MG/0.3 ML SYG SC (08:51)
[2018-10-20] MEDS: ONDANSETRON 4 MG INJ IV ×2 (13:01→20:52)
[2018-10-20] MEDS: SOD CHLORIDE 0.9% 1,000 ML IV ×2 (15:53→23:37)
[2018-10-21] MEDS: DIPHENHYDRAMINE 50 MG INJ IV ×6 (01:10→21:41)
[2018-10-21] MEDS: morphine 4 MG/ML VIAL IV ×6 (01:12→21:44)
[2018-10-21 04:56] LABS: ADD MAN DIFF? NO
[2018-10-21 04:57] LABS: ABNORMAL IP MESSAGE 1; BASOPHIL # 0.2 10^3/ul (0.0-0.1); BASOPHILS % 1.1 % (0.0-2.0); EOSINOPHILS % 7.4 % (0.0-7.0); HEMOGLOBIN 7.2 g/dl (12.0-16.0); LYMPHOCYTES # 5.4 10^3/ul (0.8-2.9); MEAN CORPUSCULAR HEMOGLOBIN 30.1 pg (29.0-33.0); MEAN CORPUSCULAR HGB CONC 32.7 g/dl (32.0-37.0); MEAN CORPUSCULAR VOLUME 92.1 fl (82.0-101.0); MEAN PLATELET VOLUME 10.7 fl (7.4-10.4); MONOCYTE # 1.4 10^3/ul (0.3-0.9); MONOCYTES % 10.2 % (0.0-11.0); NEUTROPHIL # 6.1 10^3/ul (1.6-7.5); NEUTROPHILS % 42.7 % (39.0-77.0); NUCLEATED RED BLOOD CELLS # 0.1 10^3/ul (0.0-0.0); NUCLEATED RED BLOOD CELLS% 0.6 /100WBC (0.0-0.0); PLATELET COUNT 331 10^3/UL (140-415); RED BLOOD COUNT 2.39 10^6/ul (4.20-5.40); RED CELL DISTRIBUTION WIDTH 18.6 % (11.5-14.5)
[2018-10-21 04:57] LABS: WHITE BLOOD COUNT 14.1 10^3/ul (4.8-10.8)
[2018-10-21 05:04] LABS: POSITIVE DIFF @See below
[2018-10-21 05:15] LABS: ANION GAP 9 (5-13); BLOOD UREA NITROGEN 21 mg/dl (7-20); CALCIUM 8.7 mg/dl (8.4-10.2); CARBON DIOXIDE 25 mmol/L (21-31); CHLORIDE 105 mmol/L (97-110); CREATININE 0.88 mg/dl (0.44-1.00); Estimated GFR > 60 mL/min (>60); GLUCOSE 138 mg/dl (70-220); POTASSIUM 4.1 mmol/L (3.5-5.1); SODIUM 139 mmol/L (135-144)
[2018-10-21] MEDS: BISACODYL (EC) 5 MG TAB PO ×3 (09:27→21:40)
[2018-10-21] MEDS: FOLIC ACID 1 MG TAB PO (09:27)
[2018-10-21] MEDS: CEFEPIME 1GM/50 ML (PMX) 50 ML IVPB ×2 (09:27→21:41)
[2018-10-21] MEDS: ENOXAPARIN 30 MG/0.3 ML SYG SC (09:44)
[2018-10-21] MEDS: HYDROXYUREA 500 MG CAP PO ×2 (09:44→21:40)
[2018-10-21] MEDS: ONDANSETRON 4 MG INJ IV (17:32)
[2018-10-21] MEDS: SOD CHLORIDE 0.9% 1,000 ML IV (23:14)
[2018-10-22] MEDS: DIPHENHYDRAMINE 50 MG INJ IV ×5 (01:52→20:15)
[2018-10-22] MEDS: morphine 4 MG/ML VIAL IV ×5 (01:53→20:16)
[2018-10-22] MEDS: FOLIC ACID 1 MG TAB PO (08:11)
[2018-10-22] MEDS: BISACODYL (EC) 5 MG TAB PO ×2 (08:11→12:15)
[2018-10-22] MEDS: CEFEPIME 1GM/50 ML (PMX) 50 ML IVPB (08:12)
[2018-10-22] MEDS: HYDROXYUREA 500 MG CAP PO (08:13)
[2018-10-22] MEDS: ENOXAPARIN 30 MG/0.3 ML SYG SC (08:14)
[2018-10-22] MEDS: AZITHROMYCIN 250 MG TAB PO (08:25)
[2018-10-22] MEDS: DOCUSATE SODIUM 100 MG CAP PO (08:25)
[2018-10-22 09:27] LABS: PROCALCITONIN 0.37 ng/mL (0.00-0.10)
[2018-10-22 11:23] LABS: ADD MAN DIFF? NO
[2018-10-22 11:30] LABS: BASOPHIL # 0.1 10^3/ul (0.0-0.1); BASOPHILS % 0.7 % (0.0-2.0); EOSINOPHILS # 0.8 10^3/ul (0.0-0.5); EOSINOPHILS % 6.7 % (0.0-7.0); HEMATOCRIT 21.8 % (37.0-47.0); HEMOGLOBIN 7.1 g/dl (12.0-16.0); LYMPHOCYTES # 3.2 10^3/ul (0.8-2.9); LYMPHOCYTES % 26.5 % (15.0-51.0); MEAN CORPUSCULAR HEMOGLOBIN 30.3 pg (29.0-33.0); MEAN CORPUSCULAR HGB CONC 32.6 g/dl (32.0-37.0); MEAN CORPUSCULAR VOLUME 93.2 fl (82.0-101.0); MEAN PLATELET VOLUME 11.6 fl (7.4-10.4); MONOCYTE # 1.3 10^3/ul (0.3-0.9); NEUTROPHIL # 6.5 10^3/ul (1.6-7.5); NEUTROPHILS % 54.4 % (39.0-77.0); NUCLEATED RED BLOOD CELLS # 0.1 10^3/ul (0.0-0.0); NUCLEATED RED BLOOD CELLS% 0.9 /100WBC (0.0-0.0); PLATELET COUNT 328 10^3/UL (140-415); RED BLOOD COUNT 2.34 10^6/ul (4.20-5.40); RED CELL DISTRIBUTION WIDTH 18.7 % (11.5-14.5)
[2018-10-22] MEDS: ONDANSETRON 4 MG INJ IV (12:27)
[2018-10-22] MEDS: ACETAMINOPHEN 325 MG TAB PO (12:28)
[2018-10-23] MEDS: ONDANSETRON 4 MG INJ IV ×2 (00:16→17:53)
[2018-10-23] MEDS: CLOTRIMAZOLE 1% 45 GM VAG CR VAG ×2 (00:16→21:17)
[2018-10-23] MEDS: BISACODYL (EC) 5 MG TAB PO ×4 (00:18→21:17)
[2018-10-23] MEDS: DIPHENHYDRAMINE 50 MG INJ IV ×6 (00:18→22:02)
[2018-10-23] MEDS: SOD CHLORIDE 0.9% 1,000 ML IV (00:19)
[2018-10-23] MEDS: morphine 4 MG/ML VIAL IV ×6 (00:21→21:18)
[2018-10-23] MEDS: HYDROXYUREA 500 MG CAP PO ×3 (00:27→21:24)
[2018-10-23] MEDS: FOLIC ACID 1 MG TAB PO (09:04)
[2018-10-23] MEDS: AZITHROMYCIN 250 MG TAB PO (09:04)
[2018-10-23] MEDS: ENOXAPARIN 30 MG/0.3 ML SYG SC (09:12)
[2018-10-23 09:27] LABS: WHITE BLOOD COUNT 12.1 10^3/ul (4.8-10.8)
[2018-10-23 09:27] LABS: ABNORMAL IP MESSAGE 1; HEMATOCRIT 20.7 % (37.0-47.0); MEAN CORPUSCULAR HEMOGLOBIN 29.9 pg (29.0-33.0); MEAN CORPUSCULAR HGB CONC 32.4 g/dl (32.0-37.0); MEAN CORPUSCULAR VOLUME 92.4 fl (82.0-101.0); PLATELET COUNT 315 10^3/UL (140-415); RED BLOOD COUNT 2.24 10^6/ul (4.20-5.40); RETICULOCYTE COUNT # 0.161 X10^6 (0.020-0.110); RETICULOCYTE COUNT % 7.2 % (0.5-1.5); RETICULOCYTE RBC 2.24
[2018-10-23 09:35] LABS: POSITIVE DIFF @See below
[2018-10-23 09:37] LABS: ADD MAN DIFF? YES; HEMOGLOBIN 6.7 g/dl (12.0-16.0)
[2018-10-23 10:49] LABS: ANISOCYTOSIS 1+ (0-0); BAND NEUTROPHILS #M 0.6 10^3/ul (0.0-0.6); BAND NEUTROPHILS % (M) 5 % (0-4); BURR CELLS 1+ (0-0); EOSINOPHILS % (M) 4 % (0-7); ERYTHROBLAST% (NRBC) (M) 1 % (0-0); GIANT THROMBO% (M) 2 % (0-0); LYMPHOCYTES #M 2.7 10^3/ul (0.8-2.9); LYMPHOCYTES % (M) 23 % (15-51); MONOCYTE #M 1.5 10^3/ul (0.3-0.9); MONOCYTES % (M) 13 % (0-11); PLATELET ESTIMATE NORMAL; POIKILOCYTOSIS 1+ (0-0); POLYCHROMASIA 1+ (0-0); REACTIVE LYMPHOCYTES #M 0.2 10^3/ul (0.0-0.0); REACTIVE LYMPHOCYTES% (M) 2 % (0-0); SEG NEUT #M 6.5 10^3/ul (1.6-7.5); SEGMENTED NEUTROPHILS (M) % 53 % (39-77); SICKLE CELL 1+ (0-0); SMUDGE%M 12 % (0-0); TARGET CELLS 1+ (0-0)
[2018-10-23] MEDS ORDERED: LORAZEPAM 0.5 MG TAB PO (16:00)
[2018-10-23] MEDS: oxyCODONE (CR) 10 MG TAB [oxyCONTIN] PO (21:17)
[2018-10-23] MEDS: ACETAMINOPHEN 325 MG TAB PO (22:02)
[2018-10-23 22:30] LABS: IMMEDIATE SPIN CROSSMATCH 1 1
[2018-10-24] MEDS: DIPHENHYDRAMINE 50 MG INJ IV ×4 (01:59→18:37)
[2018-10-24] MEDS: morphine 4 MG/ML VIAL IV ×7 (01:59→21:29)
[2018-10-24] MEDS: ONDANSETRON 4 MG INJ IV ×2 (05:08→15:21)
[2018-10-24] MEDS: HYDROXYUREA 500 MG CAP PO ×2 (08:31→21:23)
[2018-10-24] MEDS: ENOXAPARIN 30 MG/0.3 ML SYG SC (08:32)
[2018-10-24] MEDS: AZITHROMYCIN 250 MG TAB PO (08:32)
[2018-10-24] MEDS: BISACODYL (EC) 5 MG TAB PO ×3 (08:32→21:21)
[2018-10-24] MEDS: FOLIC ACID 1 MG TAB PO (08:32)
[2018-10-24] MEDS: oxyCODONE (CR) 10 MG TAB [oxyCONTIN] PO ×2 (09:58→22:21)
[2018-10-24 10:20] LABS: WHITE BLOOD COUNT 10.5 10^3/ul (4.8-10.8)
[2018-10-24 10:20] LABS: HEMOGLOBIN 8.2 g/dl (12.0-16.0); MEAN CORPUSCULAR HEMOGLOBIN 29.9 pg (29.0-33.0); MEAN CORPUSCULAR HGB CONC 32.8 g/dl (32.0-37.0); MEAN CORPUSCULAR VOLUME 91.2 fl (82.0-101.0); MEAN PLATELET VOLUME 10.9 fl (7.4-10.4); NUCLEATED RED BLOOD CELLS% 1.2 /100WBC (0.0-0.0); PLATELET COUNT 305 10^3/UL (140-415); RED BLOOD COUNT 2.74 10^6/ul (4.20-5.40); RED CELL DISTRIBUTION WIDTH 18.6 % (11.5-14.5)
[2018-10-24 10:23] LABS: ADD MAN DIFF? YES
[2018-10-24 10:54] LABS: ANION GAP 6 (5-13); BLOOD UREA NITROGEN 10 mg/dl (7-20); CALCIUM 9.1 mg/dl (8.4-10.2); CARBON DIOXIDE 28 mmol/L (21-31); CHLORIDE 105 mmol/L (97-110); CREATININE 0.74 mg/dl (0.44-1.00); Estimated GFR > 60 mL/min (>60); GLUCOSE 133 mg/dl (70-220); POTASSIUM 4.4 mmol/L (3.5-5.1); SODIUM 139 mmol/L (135-144)
[2018-10-24 11:43] LABS: ANISOCYTOSIS 2+ (0-0); BAND NEUTROPHILS #M 0.1 10^3/ul (0.0-0.6); BAND NEUTROPHILS % (M) 1 % (0-4); BASOPHIL #M 0.1 10^3/ul (0.0-0.0); BASOPHILS % (M) 1 % (0-2); EOSINOPHILS % (M) 5 % (0-7); GIANT THROMBO% (M) 3 % (0-0); LYMPHOCYTES #M 4.7 10^3/ul (0.8-2.9); LYMPHOCYTES % (M) 45 % (15-51); MONOCYTE #M 0.4 10^3/ul (0.3-0.9); MONOCYTES % (M) 4 % (0-11); PLATELET ESTIMATE NORMAL; POIKILOCYTOSIS 1+ (0-0); POLYCHROMASIA 3+ (0-0); SEG NEUT #M 4.6 10^3/ul (1.6-7.5); SEGMENTED NEUTROPHILS (M) % 44 % (39-77); SICKLE CELL 1+ (0-0); SMUDGE%M 2 % (0-0); TARGET CELLS 1+ (0-0)
[2018-10-24] MEDS: SOD CHLORIDE 0.9% 1,000 ML IV ×2 (12:39)
[2018-10-24 17:46] LABS: HEMATOCRIT 19.6 % (35.0-45.0); HEMOGLOBIN 6.5 g/dL (11.7-15.5); MCH 29.7 pg (27.0-33.0); MCV 89.5 fL (80.0-100.0); RDW 17.7 % (11.0-15.0); RED BLOOD CELL COUNT 2.19 Million/uL (3.80-5.10)
[2018-10-24] MEDS: CLOTRIMAZOLE 1% 45 GM VAG CR VAG (21:24)
[2018-10-25] MEDS: SOD CHLORIDE 0.9% 1,000 ML IV
[2018-10-25] MEDS: morphine 4 MG/ML VIAL IV ×7 (00:29→21:21)
[2018-10-25] MEDS: DIPHENHYDRAMINE 50 MG INJ IV ×4 (00:29→18:27)
[2018-10-25] MEDS: ONDANSETRON 4 MG INJ IV ×2 (06:24→15:25)
[2018-10-25] MEDS: AZITHROMYCIN 250 MG TAB PO (09:23)
[2018-10-25] MEDS: BISACODYL (EC) 5 MG TAB PO ×3 (09:23→21:21)
[2018-10-25] MEDS: FOLIC ACID 1 MG TAB PO (09:23)
[2018-10-25] MEDS: ENOXAPARIN 30 MG/0.3 ML SYG SC (09:29)
[2018-10-25] MEDS: HYDROXYUREA 500 MG CAP PO ×2 (09:30→21:23)
[2018-10-25] MEDS: oxyCODONE (CR) 10 MG TAB [oxyCONTIN] PO ×2 (10:41→22:49)
[2018-10-25 19:16] LABS: HEMOGLOBIN A 87.3 % (>96.0); HEMOGLOBIN A2 (QUANT) 2.6 % (1.8-3.5); HEMOGLOBIN F <1.0 % (<2.0); HEMOGLOBIN S 10.1 %
[2018-10-25] MEDS: METHYLNALTREXONE 12 MG/0.6 ML VIAL SC (21:21)
[2018-10-26] MEDS: DIPHENHYDRAMINE 50 MG INJ IV ×6 (00:24→20:39)
[2018-10-26] MEDS: SOD CHLORIDE 0.9% 1,000 ML IV ×2 (00:25→23:44)
[2018-10-26] MEDS: morphine 4 MG/ML VIAL IV ×7 (00:25→23:38)
[2018-10-26] MEDS: AZITHROMYCIN 250 MG TAB PO (08:43)
[2018-10-26] MEDS: FOLIC ACID 1 MG TAB PO (08:44)
[2018-10-26] MEDS: BISACODYL (EC) 5 MG TAB PO ×3 (08:44→20:39)
[2018-10-26] MEDS: oxyCODONE (CR) 10 MG TAB [oxyCONTIN] PO ×2 (08:44→20:39)
[2018-10-26] MEDS: HYDROXYUREA 500 MG CAP PO ×2 (08:45→20:42)
[2018-10-26] MEDS: ENOXAPARIN 30 MG/0.3 ML SYG SC (08:46)
[2018-10-26 09:13] LABS: ANION GAP 4 (5-13); BLOOD UREA NITROGEN 14 mg/dl (7-20); CARBON DIOXIDE 29 mmol/L (21-31); CHLORIDE 104 mmol/L (97-110); CREATININE 0.79 mg/dl (0.44-1.00); Estimated GFR > 60 mL/min (>60); GLUCOSE 108 mg/dl (70-220); POTASSIUM 4.6 mmol/L (3.5-5.1); SODIUM 137 mmol/L (135-144)
[2018-10-26 11:46] LABS: ADD MAN DIFF? NO
[2018-10-26 11:50] LABS: BASOPHIL # 0.1 10^3/ul (0.0-0.1); EOSINOPHILS # 0.8 10^3/ul (0.0-0.5); EOSINOPHILS % 7.5 % (0.0-7.0); HEMOGLOBIN 7.7 g/dl (12.0-16.0); LYMPHOCYTES # 4.5 10^3/ul (0.8-2.9); LYMPHOCYTES % 44.1 % (15.0-51.0); MEAN CORPUSCULAR HEMOGLOBIN 30.7 pg (29.0-33.0); MEAN CORPUSCULAR HGB CONC 32.1 g/dl (32.0-37.0); MEAN CORPUSCULAR VOLUME 95.6 fl (82.0-101.0); MEAN PLATELET VOLUME 11.8 fl (7.4-10.4); MONOCYTE # 1.2 10^3/ul (0.3-0.9); MONOCYTES % 11.8 % (0.0-11.0); NEUTROPHIL # 3.6 10^3/ul (1.6-7.5); NEUTROPHILS % 35.2 % (39.0-77.0); NUCLEATED RED BLOOD CELLS # 0.1 10^3/ul (0.0-0.0); NUCLEATED RED BLOOD CELLS% 0.8 /100WBC (0.0-0.0); PLATELET COUNT 274 10^3/UL (140-415); RED BLOOD COUNT 2.51 10^6/ul (4.20-5.40); RED CELL DISTRIBUTION WIDTH 19.1 % (11.5-14.5)
[2018-10-26 11:50] LABS: WHITE BLOOD COUNT 10.2 10^3/ul (4.8-10.8)
[2018-10-26] MEDS: ONDANSETRON 4 MG INJ IV (20:38)
[2018-10-27] MEDS: DIPHENHYDRAMINE 50 MG INJ IV ×5 (02:40→22:33)
[2018-10-27] MEDS: ONDANSETRON 4 MG INJ IV ×3 (02:40→22:30)
[2018-10-27] MEDS: morphine 4 MG/ML VIAL IV ×6 (02:41→22:35)
[2018-10-27 10:13] LABS: ADD MAN DIFF? NO
[2018-10-27] MEDS: FOLIC ACID 1 MG TAB PO (10:13)
[2018-10-27] MEDS: BISACODYL (EC) 5 MG TAB PO ×3 (10:14→21:02)
[2018-10-27] MEDS: oxyCODONE (CR) 10 MG TAB [oxyCONTIN] PO ×2 (10:14→21:02)
[2018-10-27] MEDS: AZITHROMYCIN 250 MG TAB PO (10:14)
[2018-10-27 10:20] LABS: WHITE BLOOD COUNT 10.6 10^3/ul (4.8-10.8)
[2018-10-27 10:20] LABS: BASOPHIL # 0.1 10^3/ul (0.0-0.1); HEMATOCRIT 24.6 % (37.0-47.0); HEMOGLOBIN 8.1 g/dl (12.0-16.0); LYMPHOCYTES # 4.6 10^3/ul (0.8-2.9); LYMPHOCYTES % 42.9 % (15.0-51.0); MEAN CORPUSCULAR HEMOGLOBIN 30.8 pg (29.0-33.0); MEAN CORPUSCULAR HGB CONC 32.9 g/dl (32.0-37.0); MEAN CORPUSCULAR VOLUME 93.5 fl (82.0-101.0); MEAN PLATELET VOLUME 10.5 fl (7.4-10.4); MONOCYTE # 1.3 10^3/ul (0.3-0.9); MONOCYTES % 12.6 % (0.0-11.0); NEUTROPHIL # 3.6 10^3/ul (1.6-7.5); NEUTROPHILS % 34.1 % (39.0-77.0); NUCLEATED RED BLOOD CELLS # 0.1 10^3/ul (0.0-0.0); NUCLEATED RED BLOOD CELLS% 0.8 /100WBC (0.0-0.0); PLATELET COUNT 269 10^3/UL (140-415); RED BLOOD COUNT 2.63 10^6/ul (4.20-5.40); RED CELL DISTRIBUTION WIDTH 18.6 % (11.5-14.5)
[2018-10-27] MEDS: HYDROXYUREA 500 MG CAP PO ×2 (10:22→21:05)
[2018-10-27] MEDS: ENOXAPARIN 30 MG/0.3 ML SYG SC (10:23)
[2018-10-27] MEDS: METHYLNALTREXONE 12 MG/0.6 ML VIAL SC (21:01)
[2018-10-27] MEDS: SOD CHLORIDE 0.9% 1,000 ML IV (22:39)
[2018-10-28] MEDS: DIPHENHYDRAMINE 50 MG INJ IV ×4 (02:27→18:33)
[2018-10-28] MEDS: morphine 4 MG/ML VIAL IV ×5 (02:28→21:21)
[2018-10-28 08:39] LABS: ADD MAN DIFF? NO
[2018-10-28 08:44] LABS: BASOPHIL # 0.1 10^3/ul (0.0-0.1); BASOPHILS % 0.9 % (0.0-2.0); EOSINOPHILS # 0.8 10^3/ul (0.0-0.5); EOSINOPHILS % 7.4 % (0.0-7.0); HEMATOCRIT 25.7 % (37.0-47.0); HEMOGLOBIN 8.2 g/dl (12.0-16.0); LYMPHOCYTES % 38.4 % (15.0-51.0); MEAN CORPUSCULAR HEMOGLOBIN 29.4 pg (29.0-33.0); MEAN CORPUSCULAR HGB CONC 31.9 g/dl (32.0-37.0); MEAN CORPUSCULAR VOLUME 92.1 fl (82.0-101.0); MEAN PLATELET VOLUME 11.1 fl (7.4-10.4); MONOCYTE # 1.3 10^3/ul (0.3-0.9); MONOCYTES % 12.5 % (0.0-11.0); NEUTROPHIL # 4.2 10^3/ul (1.6-7.5); NEUTROPHILS % 40.4 % (39.0-77.0); NUCLEATED RED BLOOD CELLS # 0.1 10^3/ul (0.0-0.0); NUCLEATED RED BLOOD CELLS% 0.9 /100WBC (0.0-0.0); PLATELET COUNT 278 10^3/UL (140-415); RED BLOOD COUNT 2.79 10^6/ul (4.20-5.40); RED CELL DISTRIBUTION WIDTH 18.4 % (11.5-14.5)
[2018-10-28 08:44] LABS: WHITE BLOOD COUNT 10.4 10^3/ul (4.8-10.8)
[2018-10-28] MEDS: FOLIC ACID 1 MG TAB PO (10:28)
[2018-10-28] MEDS: oxyCODONE (CR) 10 MG TAB [oxyCONTIN] PO ×2 (10:28→21:11)
[2018-10-28] MEDS: BISACODYL (EC) 5 MG TAB PO ×3 (10:28→21:11)
[2018-10-28] MEDS: AZITHROMYCIN 250 MG TAB PO (10:28)
[2018-10-28] MEDS: HYDROXYUREA 500 MG CAP PO ×2 (10:30→21:13)
[2018-10-28] MEDS: ENOXAPARIN 30 MG/0.3 ML SYG SC (10:31)
[2018-10-29] MEDS: DIPHENHYDRAMINE 50 MG INJ IV ×6 (00:28→23:28)
[2018-10-29] MEDS: ONDANSETRON 4 MG INJ IV ×2 (00:28→15:09)
[2018-10-29] MEDS: morphine 4 MG/ML VIAL IV ×5 (04:35→23:29)
[2018-10-29] MEDS: BISACODYL (EC) 5 MG TAB PO ×3 (10:51→20:53)
[2018-10-29] MEDS: AZITHROMYCIN 250 MG TAB PO (10:51)
[2018-10-29] MEDS: FOLIC ACID 1 MG TAB PO (10:52)
[2018-10-29] MEDS: oxyCODONE (CR) 10 MG TAB [oxyCONTIN] PO ×2 (10:52→20:53)
[2018-10-29] MEDS: HYDROXYUREA 500 MG CAP PO ×2 (10:55→20:58)
[2018-10-29] MEDS: ENOXAPARIN 30 MG/0.3 ML SYG SC (10:56)
[2018-10-29 14:02] LABS: ADD MAN DIFF? NO
[2018-10-29 14:05] LABS: WHITE BLOOD COUNT 12.1 10^3/ul (4.8-10.8)
[2018-10-29 14:05] LABS: BASOPHIL # 0.1 10^3/ul (0.0-0.1); BASOPHILS % 0.8 % (0.0-2.0); EOSINOPHILS # 0.9 10^3/ul (0.0-0.5); HEMATOCRIT 25.6 % (37.0-47.0); HEMOGLOBIN 8.4 g/dl (12.0-16.0); LYMPHOCYTES # 4.3 10^3/ul (0.8-2.9); LYMPHOCYTES % 35.3 % (15.0-51.0); MEAN CORPUSCULAR HGB CONC 32.8 g/dl (32.0-37.0); MEAN CORPUSCULAR VOLUME 91.4 fl (82.0-101.0); MEAN PLATELET VOLUME 10.7 fl (7.4-10.4); MONOCYTE # 1.2 10^3/ul (0.3-0.9); MONOCYTES % 10.1 % (0.0-11.0); NEUTROPHIL # 5.6 10^3/ul (1.6-7.5); NEUTROPHILS % 46.4 % (39.0-77.0); NUCLEATED RED BLOOD CELLS # 0.1 10^3/ul (0.0-0.0); NUCLEATED RED BLOOD CELLS% 0.5 /100WBC (0.0-0.0); PLATELET COUNT 263 10^3/UL (140-415); RED CELL DISTRIBUTION WIDTH 18.4 % (11.5-14.5)
[2018-10-29 14:26] LABS: ANION GAP 6 (5-13); BLOOD UREA NITROGEN 19 mg/dl (7-20); CALCIUM 9.4 mg/dl (8.4-10.2); CARBON DIOXIDE 29 mmol/L (21-31); CHLORIDE 103 mmol/L (97-110); CREATININE 0.85 mg/dl (0.44-1.00); Estimated GFR > 60 mL/min (>60); GLUCOSE 97 mg/dl (70-220); POTASSIUM 5.3 mmol/L (3.5-5.1); SODIUM 138 mmol/L (135-144)
[2018-10-29] MEDS: NA POLYST SULFON 15 GM/60 ML BTL PO (19:36)
[2018-10-29] MEDS: METHYLNALTREXONE 12 MG/0.6 ML VIAL SC (20:54)
[2018-10-30] MEDS: morphine 4 MG/ML VIAL IV ×5 (03:35→21:03)
[2018-10-30] MEDS: DIPHENHYDRAMINE 50 MG INJ IV ×5 (03:35→21:23)
[2018-10-30] MEDS: oxyCODONE (CR) 10 MG TAB [oxyCONTIN] PO (09:20)
[2018-10-30] MEDS: AZITHROMYCIN 250 MG TAB PO (09:20)
[2018-10-30] MEDS: BISACODYL (EC) 5 MG TAB PO ×3 (09:20→21:09)
[2018-10-30] MEDS: FOLIC ACID 1 MG TAB PO (09:20)
[2018-10-30] MEDS: ENOXAPARIN 30 MG/0.3 ML SYG SC (09:22)
[2018-10-30] MEDS: HYDROXYUREA 500 MG CAP PO ×2 (09:22→21:10)
[2018-10-30 12:29] LABS: HEMATOCRIT 24.6 % (37.0-47.0); MEAN CORPUSCULAR HEMOGLOBIN 29.6 pg (29.0-33.0); MEAN CORPUSCULAR HGB CONC 32.5 g/dl (32.0-37.0); MEAN CORPUSCULAR VOLUME 91.1 fl (82.0-101.0); MEAN PLATELET VOLUME 10.5 fl (7.4-10.4); NUCLEATED RED BLOOD CELLS% 0.7 /100WBC (0.0-0.0); PLATELET COUNT 265 10^3/UL (140-415); RED CELL DISTRIBUTION WIDTH 18.3 % (11.5-14.5)
[2018-10-30 12:29] LABS: WHITE BLOOD COUNT 11.6 10^3/ul (4.8-10.8)
[2018-10-30 12:38] LABS: POSITIVE DIFF @See below
[2018-10-30 12:39] LABS: ADD MAN DIFF? YES
[2018-10-30 12:49] LABS: ANION GAP 7 (5-13); BLOOD UREA NITROGEN 15 mg/dl (7-20); CALCIUM 9.1 mg/dl (8.4-10.2); CARBON DIOXIDE 27 mmol/L (21-31); CHLORIDE 103 mmol/L (97-110); CREATININE 0.71 mg/dl (0.44-1.00); Estimated GFR > 60 mL/min (>60); GLUCOSE 111 mg/dl (70-220); POTASSIUM 4.8 mmol/L (3.5-5.1); SODIUM 137 mmol/L (135-144)
[2018-10-30 13:39] LABS: ANISOCYTOSIS 1+ (0-0); BAND NEUTROPHILS #M 0.1 10^3/ul (0.0-0.6); BAND NEUTROPHILS % (M) 1 % (0-4); EOSINOPHILS % (M) 7 % (0-7); GIANT THROMBO% (M) 14 % (0-0); LYMPHOCYTES #M 4.1 10^3/ul (0.8-2.9); LYMPHOCYTES % (M) 36 % (15-51); MONOCYTE #M 0.3 10^3/ul (0.3-0.9); MONOCYTES % (M) 3 % (0-11); MYELOCYTES #M 0.1 10^3/ul (0.0-0.0); MYELOCYTES % (M) 1 % (0-0); PLATELET ESTIMATE NORMAL; POIKILOCYTOSIS 1+ (0-0); POLYCHROMASIA 1+ (0-0); REACTIVE LYMPHOCYTES #M 0.5 10^3/ul (0.0-0.0); REACTIVE LYMPHOCYTES% (M) 5 % (0-0); SEG NEUT #M 5.5 10^3/ul (1.6-7.5); SEGMENTED NEUTROPHILS (M) % 47 % (39-77); SICKLE CELL 1+ (0-0); SMUDGE%M 10 % (0-0); TARGET CELLS 1+ (0-0)
[2018-10-30] MEDS: ONDANSETRON 4 MG INJ IV (13:47)
[2018-10-30] MEDS: HEPARIN (100 UNITS/ML) 5 ML SYG CATHETER (22:10)
== END 2018-10-30 22:45 | disposition home health service (06) | DRG 812 ==
LOC: 2NE 20:05 → E/R 16:49 → 2NE 17:16
PROVIDERS: Internal Medicine
PROC: 30233N1 Transfusion of Nonautologous Red Blood Cells into Peripheral Vein, Percutaneous Approach (ICD-10-PCS; principal; 2018-10-23)
DX: D57.00 Hb-SS disease with crisis, unspecified (principal); N39.0 Urinary tract infection, site not specified; D72.829 Elevated white blood cell count, unspecified; E83.19 Other disorders of iron metabolism; R50.81 Fever presenting with conditions classified elsewhere; E83.111 Hemochromatosis due to repeated red blood cell transfusions; B95.2 Enterococcus as the cause of diseases classified elsewhere; Z16.21 Resistance to vancomycin; R59.1 Generalized enlarged lymph nodes; Z86.711 Personal history of pulmonary embolism
CPT/HCPCS: 36415; 36430; 71045; 80048; 80053; 81001; 82728; 83020; 83036; 83605; 84145; 84484; 84703; 85025; 85045; 85610; 85730; 86644; 86850; 86900; 86901; 86920; 86945; 87040-91; 87081; 87086; 93005; 99285-25